=== PATIENT | male | born 1935 | race Caucasian/White ===

== ENCOUNTER 2017-10-31 20:00 | Inpatient (IN) | payer OTHER, SELFPAY ==
[2017-10-31 19:59] VITALS: BP 153/82; PULSE 90; RESP 16; TEMP 37.1; O2SAT 95
--- NOTE | 2017-10-31 20:09 | DI.CT.S_ITS ---
PROCEDURE: CT HEAD/BRAIN WO CON INDICATIONS: fall w/ head strike TECHNIQUE: Noncontrast 4.5 mm thick angled axial sections acquired from the foramen magnum to the vertex, with coronal and sagittal reformats. For radiation dose reduction, the following was used: automated exposure control, adjustment of mA and/or kV according to patient size. COMPARISON: [facility], , BRAIN WITHOUT CONTRAST, 08/06/2015, 10:35. FINDINGS: Image quality: Excellent. CSF spaces: Basal cisterns are patent. No extra-axial fluid collections. The ventricles are prominent in size, as before. Brain: No intracranial bleeds or masses. There is cerebral volume loss for age, with resultant ventricular and sulcal prominence. There are periventricular and deep white matter chronic small vessel ischemic changes. There is intracranial internal carotid artery atherosclerosis. Skull and face: Calvarium and visualized facial bones appear intact, without suspicious lesions. Sinuses: Visualized sinuses and mastoids are clear. IMPRESSION: No acute intracranial abnormality. Dictated by: Nidia Cruz M.D. on 10/31/2017 at 20:41 Approved by: Nidia Cruz M.D. on 10/31/2017 at 20:42
--- NOTE | 2017-10-31 20:09 | DI.RAD.S_ITS ---
PROCEDURE: XR HIP W PEL IF DONE LT 2V INDICATIONS: s/p fall w/ left hip pain, now non-ambulatory TECHNIQUE: AP pelvis with lateral view(s) of the left hip(s). COMPARISON: None. FINDINGS: Bones: Moderately displaced left subcapital femoral neck fracture. ORIF of the right hip. Pelvic ring appears intact. No suspicious bony lesions. Soft tissues: The visualized bowel gas pattern is normal. No suspicious soft tissue calcifications. IMPRESSION: Left subcapital femoral neck fracture. Dictated by: Nidia Cruz M.D. on 10/31/2017 at 20:39 Approved by: Nidia Cruz M.D. on 10/31/2017 at 20:40
--- NOTE | 2017-10-31 20:09 | DI.RAD.S_ITS ---
PROCEDURE: XR CHEST 1V INDICATIONS: fall, possible pre-op TECHNIQUE: One view of the chest was acquired. COMPARISON: [facility], CR, XR CHEST 2V, 09/13/2017, 11:53. FINDINGS: Surgical changes and devices: None. Lungs and pleura: No pleural effusions or pneumothorax. Lungs are clear. Mediastinum: Mediastinal contours appear normal. Heart size is normal. Bones and chest wall: No suspicious bony lesions. Overlying soft tissues appear unremarkable. IMPRESSION: No acute process. Dictated by: Nidia Cruz M.D. on 10/31/2017 at 20:38 Approved by: Nidia Cruz M.D. on 10/31/2017 at 20:39
[2017-10-31] MEDS: HYDROMORPHONE 0.5 MG INJ 1 MG IV ×3 (20:40→23:13)
--- NOTE | 2017-10-31 20:55 | ED.LOWEXIN ---
HPI - Extremity Injury (Lower) General Chief Complaint: Extremity Injury, Lower Stated Complaint: GLF Time Seen by Provider: 10/31/17 20:01 History of Present Illness HPI Narrative: HPI 82-year-old male with a prior right hip/femur fracture presents after mechanical fall from standing height for evaluation of left hip pain. Patient was at balance class as part of his rehab from prior injuries and to improve his balance. The patient was getting up from a chair when he fell onto his left hip, patient reports he struck his head without LOC but he saw stars, patient denies taking blood thinners. Patient was unable to stand was transferred by [facility] for further care. Patient declined pain medications at the present time as he received medications in route. Patient denies preceding chest pain, shortness breath, abdominal pain. No history of DVT or PE. M/S/F/SocHx notable for: denies pertinent medical history, medications notable for Aricept, fluoxetine, and tamsulosin; remainder reviewed with patient and in chart. ROS: Negative constitutional, eye, cardiovascular, pulmonary, GI, , MSK, skin, neurologic, psychiatric, endocrine unless noted in the HPI. Exam General: Pleasant, non-toxic appearing, resting comfortably. HENT: No evidence of facial or head trauma, TTP of orbits, TTP of midface, malocclusion, or septal hematoma. OP clear and moist, dentition intact. Eyes: EOMI, PERRL. Neck: Tracheal midline. No visible skin defects, no step-offs, c-spine TTP, stridor, or JVD. Cardiac: RRR with no M/R/G. Chest: No crepitus, visual evidence of trauma, equal chest rise, TTP. Pulm: CTAB effort WNL w/o accessory muscle usage. Abd: Soft, NT, ND, no guarding or visual evidence of trauma. Back: No spinous process TTP, no step-offs or visible injury. Pelvis: Stable, left hip tenors palpation. RUE: [employer] Operations [employer] 5/5, hand warm and well perfused with sensation intact to touch, mildly tender 2 cm area of swelling on the proximal, ulnar aspect of the forearm, no surrounding bony tenderness to palpation. LUE: [employer] 5/5, hand warm and well perfused with sensation intact to touch, no visible injuries. RLE: Dorsiflexion 5/5, foot warm and well perfused with sensation intact to touch, no visible injuries. LLE: Dorsiflexion 5/5, foot warm and well perfused with sensation intact to touch, shortened and externally rotated. Gait: unable to assess Neuro: AOx3, CN VII intact Skin: Warm and dry (focal injuries noted above). Psych: Normal affect and judgement. Labs / Imaging (pertinent): CBC, BMP, troponin pending. EK BPM, NSR with no ST-segment elevations or depressions, T-wave inversions or new LBBB. GA interval 142 msec, QTc 359 msec, no delta waves, epsilon waves, coved or saddle ST-segment changes in leads V1-3, preseptal or inferior lead Q-waves, biphasic P-waves, or T-wave inversions; no LVH. XR L hip & pelvis: left sub capital femoral neck fracture. CXR: no acute cardiopulmonary abnormality. CT head: no acute intracranial abnormality. MDM Previous chart, nursing note, and vitals reviewed. A: 82-year-old male with a prior right hip/femur fracture presents after mechanical fall from standing height for evaluation of left hip pain DDx and evaluation: Trauma - left hip fracture. No further clinically significant injuries appreciated on history, exam, or imaging. Discussed case with orthopedic surgery. Patient to be admitted to medicine. Fall Etiology: mechanical based on history. CBC, BMP, troponin pending at time of admission. EKG without evidence of ischemia or conduction abnormalities. ED Course: hydromorphone given for pain control. Disposition: admitted to the hospitalist. Impression: fall, left hip fracture. (please reference below for remainder of encounter information) Related Data Home Medications Medication Instructions Recorded Confirmed aspirin [Aspirin Low Dose] 81 mg PO QDAY 09/13/17 09/13/17 aspirin, buffered 650 mg PO BID PRN 05/02/18 05/02/18 benzonatate 100 mg PO Q4H PRN 09/13/17 09/13/17 donepezil [Aricept] 10 mg PO BEDTIME 09/13/17 09/13/17 fluoxetine [Prozac] 10 mg PO DAILY 09/13/17 09/13/17 meclizine 25 mg PO QDAY 09/13/17 09/13/17 omeprazole 10 mg PO DAILY 09/13/17 09/13/17 tamsulosin [Flomax] 0.4 mg PO DAILY 09/13/17 09/13/17 Previous Rx's Medication Instructions Recorded albuterol sulfate 1 puff INHALATION Q4-6H PRN #6.7 09/13/17 gram Allergies Allergy/AdvReac Type Severity Reaction Status Date / Time No Known Drug Allergies Allergy Verified 09/13/17 12:28 [facility] Social History Smoking Status: Never smoker Exam Initial Vital Signs Initial Vital Signs: Vital Signs Temperature 98.7 F 10/31/17 19:59 Pulse Rate 90 10/31/17 19:59 Respiratory Rate 16 10/31/17 19:59 Blood Pressure 153/82 H 10/31/17 19:59 Pulse Oximetry 95 10/31/17 19:59 Course Orders Ordered: ED Orders 10/31/17 20:09 CT head/brain wo con Stat XR chest 1V Stat XR hip w pel if done LT 2V Stat Basic Metabolic Panel Stat Complete Blood Count AUTO DIFF Stat Troponin I Stat EKG-12 Lead Stat Discontinued Medications Hydromorphone HCl (Dilaudid) 1 mg IV NOW ONE Stop: 10/31/17 20:35 Last Admin: 10/31/17 20:40 Dose: 1 mg Vital Signs - 8 hr 10/31/17 19:59 Temperature 98.7 F Pulse Rate 90 Respiratory Rate 16 Blood Pressure 153/82 H Pulse Oximetry 95 Discharge Plan Departure Patient Disposition: Admitted As Inpatient Clinical Impression: Closed hip fracture
[2017-10-31 21:09] VITALS: PULSE 105; RESP 12; O2SAT 93
[2017-10-31 21:22] VITALS: BP 157/63; PULSE 101; RESP 18; O2SAT 93
--- NOTE | 2017-10-31 21:34 | PC.NURSE ---
provider unable to order the right concentration of hydromorphone. unable to scan in [employer] 1mg/1ml concentration on hand in ER med drawer at this time. provider aware. no new orders.
[2017-10-31] MEDS: diazePAM 10 MG/2 ML SYRINGE 2 MG IV (22:40)
--- NOTE | 2017-10-31 22:42 | PC.NURSE ---
diazepam 5mg/ml vial only available in ER. Unable to scan medication due to incorrect concentration available in ER at this time. Provider aware.
[2017-10-31] MEDS: ONDANSETRON 4 MG/2 ML INJ IV (22:43)
[2017-10-31 22:44] VITALS: PULSE 111; RESP 16; O2SAT 95
--- NOTE | 2017-10-31 22:46 | PC.NURSE ---
pt given valium due to being uncomfortable pts O2 sat dropped to 86% after med administration. pt placed on 4L NC 02 sat 95% after o2 administration. pt hr elevated provider aware. pt okay to be moved up stairs to room per provider. explained pts situation to spouse. spouse verbalized understanding of pts care at this time. no new orders .
[2017-10-31 22:48] VITALS: O2SAT 95
[2017-10-31 23:00] VITALS: BP 169/75; PULSE 119; RESP 18; TEMP 37.3; O2SAT 97
[2017-11-01] VITALS (18 sets, daily range): BP systolic 121–159; BP diastolic 58–86; PULSE 74–118; RESP 13–20; TEMP 36.2–38.8; O2SAT 93–98; BMI 27.9
[2017-11-01] MEDS: ONDANSETRON 4 MG/2 ML INJ IV ×2 (00:44→05:15)
[2017-11-01] MEDS: HYDROMORPHONE 0.5 MG INJ IV (03:21)
--- NOTE | 2017-11-01 04:04 | PC.NURSE ---
Addendum entered by Kenya Rivas R.N. 11/01/17 06:22: 0400- pt complains of pain. dr mccallum orders received. 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 given zofran instead at compazine was not yet available . at bedside. pt attempted to roll to remove sheets from ED however opt yelled out in pain, swore and sated he couldn't do it. he then stated that he did not want the activities specialist to be in his room as he didn't like him and he was too rough. hammerer notified. coordinator notified. Pt given pain medication early (OK'd by MD per telephone call/order). see MAR for complete administration of all pain medications. Pt complaining constantly. tried to reposition however pt unable to really move much. Pt uses trapeze to offload bottom for a few seconds at a time and does try to move hips a bit to offload when sitting back down but this also hurts him extraordinarily. stated that she thinks if he rolls then we can get the extra sheets out from underneath him, but this typewriter tester explained to her multiple times that we tried and he couldn't tolerate it. Pt then tells his to hush up and frequently asks aleida what are you doing, stop that etc. Pt still tachycardia at times. pt blood pressure better in the 120s systolic, pt states that closer to where he normally is. bed alarm not cayden s pt uses trapeze, at bedside will alert staff if needing assistance. will continue to monitor. Original Note: Admit note: pt arrived to floor around 2245 6-19. pt at bedside,. states she will be staying. 0015- pt assessed. pain medication given per JUL. zofran given. pt had 5 episodes of vomiting after Dilaudid administration. md order to place pt NPO for surgery in AM. pt and spouse (Lizy) updated and briefed on plan of care and surgery in am, asking when it will be and discussed OR scheduling with them. Pt tolerating NPO ok, mouthwash at bedside and pt spitting into cup. Pt states zofran helps but still throwing up. pt uses trapeze bar and this helps him reposition himself. Pt has multiple blankets underneath him but refuses to let us removes them as he states the pain is too severe. even after pain medical diagnostic radiographer. pt refuses to let us remove the blankets. educated on why it is important and pt still refuses. Pt has pillow on left side, and ice pack. minimal orders in for pt. paged twice, finally RN coordinator paged and got zofran order for pt but no other orders received at this time. aleida given blankets. aleida and completed admission. Pt seems aggressive with but is pleasant with staff. will continue to monitor pt for safety. pt unable to get up. Pt bed alarm off. side rails up x3. pt bed alarm off as pt uses trapeze bar and alarm will sound even though pt is not getting up,. when pt is asleep, bed alarm is on and operational. belongings and call light within each. will continue to monitor pt for safety. at bedside, pt is responsible and will not get up without staff.
[2017-11-01] MEDS: HYDROMORPHONE 0.5 MG INJ 1 MG IV (05:08)
[2017-11-01] MEDS: SODIUM CHLORIDE 0.9% FLUSH 10 ML IV ×2 (05:08→13:05)
[2017-11-01] MEDS: PROCHLORPERAZINE 10 MG/2 ML VIAL IV (05:53)
--- NOTE | 2017-11-01 10:18 | P.HP_ITS ---
History of Present Illness Date Patient Seen: 11/01/17 Time Patient Seen: 10:15 Chief complaint: GLF Narrative: 82-year-old male who fell yesterday evening while attending a balance class fractured his hip. He was a resident of [place] he was sent over here for evaluation found to have the fractured hip. He has been fairly [place] has been relatively healthy in the past she does note that he has chronic balance problems due to previously fractured femur. Patient History Medical History Hypertension (Acute) Right femoral fracture (Acute) Family & Social History Social History: household members spouse Prior Living Arrangements House Safety & Behavioral: Feels Safe in Current Yes Environment Been Physically Hurt or No Threatened By a Person Suicidal Ideation Description None Tobacco & Substance use: Smoking Status Never smoker alcohol intake frequency 0-2 drinks per day Substance Use Type does not use Meds Home Medications Medication Instructions Recorded Confirmed Type albuterol sulfate 1 puff INHALATION Q4-6H PRN #6.7 09/13/17 10/31/17 Rx gram aspirin [Aspirin Low Dose] 81 mg PO QDAY 09/13/17 10/31/17 History aspirin, buffered 650 mg PO BID PRN 09/13/17 10/31/17 History benzonatate 100 mg PO Q4H PRN 09/13/17 10/31/17 History donepezil [Aricept] 10 mg PO BEDTIME 09/13/17 10/31/17 History fluoxetine [Prozac] 10 mg PO DAILY 09/13/17 10/31/17 History meclizine 25 mg PO QDAY 09/13/17 10/31/17 History omeprazole 10 mg PO DAILY 09/13/17 10/31/17 History tamsulosin [Flomax] 0.4 mg PO DAILY 09/13/17 10/31/17 History Allergies Allergy/AdvReac Type Severity Reaction Status Date / Time No Known Drug Allergies Allergy Verified 09/13/17 12:28 Review of Systems Review of Systems All systems reviewed & are unremarkable except as noted in HPI and below Exam Vital Signs (past 8 hours): Vital Signs - 8 hr 3 11/01/17 04:16 11/01/17 05:53 Temperature 99.5 F Pulse Rate 88 100 H Respiratory Rate 16 Blood Pressure 124/58 H 123/64 H Pulse Oximetry 96 Pulse Oximetry 96 Oxygen Delivery Method Nasal Cannula Oxygen Flow Rate 2 Narrative Exam Narrative: Pleasant elderly male awake alert actively hiccuping intractably. Oropharynx clear HEENT exam otherwise unremarkable Neck is supple no JVD no bruit noted Lungs are clear Heart regular rhythm Abdomen soft nontender bowel sounds present Skin warm and dry Neuro exam awake alert oriented no focal deficits Lower extremities no edema Assessment & Plan Plan: Assessment/Plan Narrative: One. Left subcapital femoral neck fracture. Patient will be consulted by Orthopedics and undergo surgical repair. Postoperative anticoagulation as per orthopedic protocol 2. Intractable hiccups he has had bed having hiccups now for over 12 hr. Plan to try him on some IV Reglan. 3. History of asthma he uses the albuterol very infrequently. 4. Code status patient desires to be full code Quality VTE Deep Vein Thrombosis/Pulmonary Embolism Present on Admission: No
[2017-11-01] MEDS: DEXTROSE 5%-0.45NS W/KCL 10MEQ 1,000 ML 100 MEQ IV (13:05)
--- NOTE | 2017-11-01 14:41 | CM.DANOTE ---
DCP: assessment: case received, EMR reviewed. SUGEY Pennington/ronel planning met with pt and his spouse. Introduced herself and role. Pt is an 82 year old male who lives on [address] [facility] with his spouse. Admitted late yesterday evening to care of hospitalist team. Surgeon: consulted. Dr. Calix will take pt to surgery this evening to repair fractured hip, sustained yesterday after a fall. Payer: [facility]. RONEL technical planner SUGEY Pennington agreed to check in with pt and his tomorrow to discuss d/c issues and options. Anticipate OT and PT will see pt post op. If pt does need SNF level rehab after d/c from [facility] authorization will need to be obtained and a [place] facility located. SNFs in [facility] are limited to [facility] and [facility]. P: follow up post surgery to continue the d/c issues/options discussion.
[2017-11-01] MEDS: MORPHINE 4 MG/ML INJ 2 MG IV (14:43)
--- NOTE | 2017-11-01 15:27 | PC.NURSE ---
day shift pt stated pain was controlled for majority of shift. Did request pain meds this afternoon which were provided. No emesis after morphine admin as seemed to be happening after dilaudid this AM. No nausea for me this shift. did have breakfast as was allowed by Dr Calix (last PO intake around 0915 this AM). Tolerated that without issue. Low grade temp this shift, 100.[address] Partida, no intervention necessary. Pt c/o pain with PIV that was field start in RFA. Removed and new PIV inserted in RFA. Hourly rounding provided, call light wihtin reach.
--- NOTE | 2017-11-01 16:45 | PC.NURSE ---
Sulema note: Patient awake and alert, CMS to LLE intact, reports pain to left hip described as an ache, declines pain medication at the moment. No c/o nausea. at bedside providing supportive care. asking appropriate questions. OR Holding nurse Ivna at bedside, patient to be taken to OR in stable condition.
[2017-11-01] MEDS: LACTATED RINGERS 1,000 ML 42 ML IV (17:00)
[2017-11-01] MEDS: FAMOTIDINE 20 MG/50 ML PIGGYBACK 200 MG IV (17:04)
[2017-11-01] MEDS: METOCLOPRAMIDE 10 MG/2 ML INJ IV (17:05)
[2017-11-01] MEDS: CEFAZOLIN 2 GM/100 ML FROZ.PIGGY IV (17:23)
--- NOTE | 2017-11-01 17:29 | PM.PREOP ---
Pre-operative Note Interval Note Pre-op Check: History & Physical exam performed today
--- NOTE | 2017-11-01 18:06 | SUR.OPER ---
Lateral on padded OR bed, head on pillow, gel axillary roll in place, bottom leg bent with gel pad under knee to foot, upper leg straight and supported with pillows. virk bag used to support patient's hips and abdomen. Upper arm supported by pillows and secured over bottom arm to padded arm board. tape over blanket over lower legs.
[2017-11-01] MEDS: BUPIVACAINE 0.25% W/ EPI 50 ML VIAL INJ (18:14)
[2017-11-01] MEDS: SODIUM CHLORIDE IRRIG SOLUTION 250 ML, EPINEPHrine 1 MG IRR (18:15)
--- NOTE | 2017-11-01 19:18 | PM.HP.1 ---
History of Present Illness Date Patient Seen: 11/01/17 Time Patient Seen: 17:15 Chief complaint: GLF Narrative: The patient is an 82-year-old man who fell yesterday during balance class. He had immediate pain in his left hip and inability to bear weight. X-rays at the emergency room revealed a displaced femoral neck fracture. He denies previous problems with the leg. He does have a history of a right proximal femoral fracture. He denies any loss of conscious or other injuries during the fall. He has had a lot of difficulties with his balance recently. Patient History Medical History Hypertension (Acute) Right femoral fracture (Acute) Family & Social History Family History: Reviewed 11/01/17 by Shade Calix MD Social History: household members spouse Prior Living Arrangements House Safety & Behavioral: Feels Safe in Current Yes Environment Been Physically Hurt or No Threatened By a Person Suicidal Ideation Description None Tobacco & Substance use: Smoking Status Never smoker alcohol intake frequency 0-2 drinks per day Substance Use Type does not use Meds Home Medications Medication Instructions Recorded Confirmed Type albuterol sulfate 1 puff INHALATION Q4-6H PRN #6.7 09/13/17 10/31/17 Rx gram aspirin [Aspirin Low Dose] 81 mg PO QDAY 09/13/17 10/31/17 History aspirin, buffered 650 mg PO BID PRN 09/13/17 10/31/17 History benzonatate 100 mg PO Q4H PRN 09/13/17 10/31/17 History donepezil [Aricept] 10 mg PO BEDTIME 09/13/17 10/31/17 History fluoxetine [Prozac] 10 mg PO DAILY 09/13/17 10/31/17 History meclizine 25 mg PO QDAY 09/13/17 10/31/17 History omeprazole 10 mg PO DAILY 09/13/17 10/31/17 History tamsulosin [Flomax] 0.4 mg PO DAILY 09/13/17 10/31/17 History Allergies Allergy/AdvReac Type Severity Reaction Status Date / Time No Known Drug Allergies Allergy Verified 09/13/17 12:28 Review of Systems Review of Systems All systems reviewed & are unremarkable except as noted in HPI and below Exam Vital Signs (past 8 hours): Vital Signs - 8 hr 11/01/17 16:11 11/01/17 16:43 11/01/17 16:52 Temperature 99.0 F 101.8 F H Pulse Rate 86 81 Respiratory Rate 18 20 Blood Pressure 144/80 H 145/66 H Pulse Oximetry 95 96 95 Pulse Oximetry 95 Oxygen Delivery Method Nasal Cannula Oxygen Flow Rate 2 Narrative Exam Narrative: Patient is alert and fully oriented. He does appear to be relatively comfortable in bed. HEENT is unremarkable. Lungs clear. Heart regular rate and rhythm. Abdomen soft nontender. Extremities show shortening or rotation of the left hip. Range of motion of the left hip is very painful. The lower extremities are warm and appear adequately perfused. Strength and sensation is grossly intact. Objective Imaging Hip x-ray: My impression: Displaced femoral neck fracture Assessment & Plan Plan: Assessment/Plan Narrative: The patient has displaced left femoral neck fracture from a ground level fall. I discussed the nature of this condition further treatment options with the patient and his . I have recommended a cemented hemiarthroplasty. We discussed the nature of that surgery including the risks, benefits, alternatives, postoperative course and expected outcome. Informed consent was taken. Operative site confirmed and marked. Time Spent With Patient Time with patient: less than 15 minutes Quality VTE Deep Vein Thrombosis/Pulmonary Embolism Present on Admission: No
--- NOTE | 2017-11-01 19:22 | P.HP_ITS ---
History of Present Illness Date Patient Seen: 11/01/17 Time Patient Seen: 17:15 Chief complaint: GLF Narrative: The patient is an 82-year-old man who fell yesterday during balance class. He had immediate pain in his left hip and inability to bear weight. X- rays at the emergency room revealed a displaced femoral neck fracture. He denies previous problems with the leg. He does have a history of a right proximal femoral fracture. He denies any loss of conscious or other injuries during the fall. He has had a lot of difficulties with his balance recently. Patient History Medical History Hypertension (Acute) Right femoral fracture (Acute) Family & Social History Family History: Reviewed 11/01/17 by Shade Calix MD Social History: household members spouse Prior Living Arrangements House Safety & Behavioral: Feels Safe in Current Yes Environment Been Physically Hurt or No Threatened By a Person Suicidal Ideation Description None Tobacco & Substance use: Smoking Status Never smoker alcohol intake frequency 0-2 drinks per day Substance Use Type does not use Meds Home Medications Medication Instructions Recorded Confirmed Type albuterol sulfate 1 puff INHALATION Q4-6H PRN #6.7 09/13/17 10/31/17 Rx gram aspirin [Aspirin Low Dose] 81 mg PO QDAY 09/13/17 10/31/17 History aspirin, buffered 650 mg PO BID PRN 09/13/17 10/31/17 History benzonatate 100 mg PO Q4H PRN 09/13/17 10/31/17 History donepezil [Aricept] 10 mg PO BEDTIME 09/13/17 10/31/17 History fluoxetine [Prozac] 10 mg PO DAILY 09/13/17 10/31/17 History meclizine 25 mg PO QDAY 09/13/17 10/31/17 History omeprazole 10 mg PO DAILY 09/13/17 10/31/17 History tamsulosin [Flomax] 0.4 mg PO DAILY 09/13/17 10/31/17 History Allergies Allergy/AdvReac Type Severity Reaction Status Date / Time No Known Drug Allergies Allergy Verified 09/13/17 12:28 Review of Systems Review of Systems All systems reviewed & are unremarkable except as noted in HPI and below Exam Vital Signs (past 8 hours): Vital Signs - 8 hr 3 11/01/17 16:11 11/01/17 16:43 11/01/17 16:52 Temperature 99.0 F 101.8 F H Pulse Rate 86 81 Respiratory Rate 18 20 Blood Pressure 144/80 H 145/66 H Pulse Oximetry 95 96 95 Pulse Oximetry 95 Oxygen Delivery Method Nasal Cannula Oxygen Flow Rate 2 Narrative Exam Narrative: Patient is alert and fully oriented. He does appear to be relatively comfortable in bed. HEENT is unremarkable. Lungs clear. Heart regular rate and rhythm. Abdomen soft nontender. Extremities show shortening or rotation of the left hip. Range of motion of the left hip is very painful. The lower extremities are warm and appear adequately perfused. Strength and sensation is grossly intact. Objective Imaging Hip x-ray: My impression: Displaced femoral neck fracture Assessment & Plan Plan: Assessment/Plan Narrative: The patient has displaced left femoral neck fracture from a ground level fall. I discussed the nature of this condition further treatment options with the patient and his . I have recommended a cemented hemiarthroplasty. We discussed the nature of that surgery including the risks, benefits, alternatives , postoperative course and expected outcome. Informed consent was taken. Operative site confirmed and marked. Time Spent With Patient Time with patient: less than 15 minutes Quality VTE Deep Vein Thrombosis/Pulmonary Embolism Present on Admission: No
--- NOTE | 2017-11-01 19:22 | PM.OP.1 ---
Operative Date/Time/Diagnoses - Date of procedure: 11/01/17 Time of procedure: 19:22 Pre-op diagnosis: Displaced left femoral neck fracture Post-op diagnosis: same Procedure & Clinicians Procedure: Left hip hemiarthroplasty with unipolar head Same procedure as scheduled: Yes Indications: Patient is a 2-year-old man who fell yesterday and sustained a displaced femoral neck fracture. He now presents for hemiarthroplasty. The nature of procedure including the risks, benefits, alternatives, postoperative course and expected outcome were discussed and all questions answered. Consent was obtained. Operative site confirmed and marked. Surgeon: Shade Calix Security Software Engineer: Jesus Neely Anesthesia Type: General Operative Notes Findings: Displaced femoral neck fracture. Adequate bone quality. Closure Type: primary Specimen(s): none sent Implants & Drains: [employer]hew cemented hemiarthroplasty. Thirteen stem. A 50 mm +0 neck length. Applied: implant(s) Estimated Blood Loss (mL): 100 Blood products transfused: none Procedure in detail: The patient was taken operative suite and placed under general anesthesia. He was given prophylactic antibiotics prior to surgery. He was then placed in a lateral position on a virk bag. The leg was prepped and draped usual sterile fashion. A 15 cm incision was made just the anterior aspect of the greater trochanter. Dissection was then carried down through the subcutaneous tissue with electrocautery. The tensor fascia ana maria was split line with the incision and marked. The anterior 1/3 of the gluteus medius was then released from the greater trochanter leaving a cuff of tissue for repair. The anterior capsule was Teed. The femoral neck was then delivered from the wound in the provisional neck cut made. The femoral head was removed and measured at a size 50. Next the final neck cut was made which was about 1 fingerbreadth above the lesser tuberosity. Sequential broaching was then carried out per the proximal femur and the trials template. The 13 mm stem had good fit. There was good scientology of leg length and stability with a +0 neck length. The canal was then prepared for cement with Pulsavac irrigation and epinephrine soaked sponge. The final 13 mm component was then cemented into place. The component was held until the cement had fully cured. Reduction was then performed with a +0 neck length and 50 mm head. Again there was adequate scientology of leg length and soft tissues stability. Attempted to make the leg slightly longer is appear to have shortening of his contralateral leg from his previous fracture. the wound was then copiously irrigated. The capsule was closed with 2. Ethibond. The gluteus medius was repaired back to the trochanter with 2. Ethibond. Tensor fascia ana maria was then closed with a Quill suture. The subcutaneous tissue was closed with 2 Vicryl and the skin with damaris. An Aquacel dressing was then applied. The patient tolerated procedure well and was returned to recovery in good condition. Complications: none Condition: stable Disposition: PACU Plan for aftercare: The patient will be weight-bearing as tolerated with no hip precautions given his anterolateral approach. Plan discharge to alf facility.
--- NOTE | 2017-11-01 20:45 | DI.RAD.S_ITS ---
PROCEDURE: XR HIP W PEL IF DONE LT 2V INDICATIONS: post operative left hip replacement surgery TECHNIQUE: AP pelvis and lateral view of the left hip acquired. COMPARISON: [facility], CR, XR HIP W PEL IF DONE LT 2V, 10/31/2017, 19:48. FINDINGS: Bones: Patient is status post left hip arthroplasty, with hardware components in expected positions. The hip joint appears congruent. The visualized bony structures appear intact. Incidental note is made of postsurgical changes of the right femur related to previous mid to distal right femoral shaft ORIF. Upon trochanteric nail is secured in place by a sliding hip screw and an additional orthopedic screw. The bone mineralization of the pelvis is decreased. There are degenerative changes of the sacroiliac joints. Soft tissues: Overlying postoperative changes are noted. No suspicious soft tissue densities. Expected postoperative changes within the overlying soft tissues are present. The overlying skin damaris are noted. No radiopaque foreign bodies are identified. A Marshall catheter is noted. IMPRESSION: Interval expected postsurgical changes related to a left hip arthroplasty. Dictated by: Eljiah Jackson M.D. on 11/01/2017 at 21:28 Approved by: Elijah Jackson M.D. on 11/01/2017 at 21:29
--- NOTE | 2017-11-01 21:34 | PC.NURSE ---
Post op note: Patient return to AC from PACU with RN, Alert, oriented, in stable condition. Continue on O2 at 2L via NC, sats 94%. Notified RT regarding Eval and Tx. CMS intact to LLE, Aquacel to anterior lateral left hip, dressing with dime size shadowing to distal end of dressing. Ice pack to left hip, pillow in between legs for anterior hip precautions measures. CMS intact to LLE, warm, pink, 2+ pedal pulse, movable and sensation present. No c/o pain or nausea. XRY tech at bedside to perform post op view.
[2017-11-01] MEDS: LACTATED RINGERS 1,000 ML 100 ML IV (21:53)
[2017-11-02] VITALS (11 sets, daily range): BP systolic 126–151; BP diastolic 59–71; PULSE 63–99; RESP 16–18; TEMP 36.8–37.9; O2SAT 92–99
[2017-11-02] MEDS: CEFAZOLIN 2 GM/100 ML FROZ.PIGGY IV ×2 (00:04→09:44)
--- NOTE | 2017-11-02 05:06 | PC.NURSE ---
[employer] Station Attendant- Pt lethargic throughout shift, follows direction, did not use call light throughout night. Hourly rounding done. At beginning of shift, pt reported 2-3/10 aching to left hip surgical site, prn pain medication reviewed, pt has had only ice chips, states is not hungry. Pt's Maira at bedside stated, pt was nauseated and vomiting after receiving doses prior to surgery. Dr. Calix called at 0055 and prn orders rec'd from Morphine & reglan. Left hip aquacel dressing intact with small amount of sang shadowing near distal end of dressing, area marked with pen. CMS+, PPP, Calf SCD's on BLE. IVF infusing well to rigth FA PIV. Pt weaned from 2L NC at 98% to 93% on RA at 0505, placed on continuous O2 monitoring for overnight. High fall risk precautions in place. No other voiced concerns.
[2017-11-02] MEDS: MORPHINE 2 MG/ML INJ IV (06:00)
[2017-11-02] MEDS: LACTATED RINGERS 1,000 ML 100 ML IV (06:05)
[2017-11-02 06:12] LABS: Hematocrit 35.4 % (41-53); Hemoglobin 11.9 g/dL (13.5-17.5)
[2017-11-02] MEDS: PANTOPRAZOLE 20 MG TABLET PO (06:39)
[2017-11-02] MEDS: FLUoxetine 10 MG CAPSULE PO (09:45)
[2017-11-02] MEDS: OXYCODONE IR 5 MG TABLET PO ×2 (09:48→21:40)
[2017-11-02] MEDS: ENOXAPARIN 40 MG/0.4 ML SYRINGE SUBCUT (09:50)
--- NOTE | 2017-11-02 10:33 | PT.IIE ---
Surgery Performed Operation Date: 11/01/17 16:30 Actual Procedures p Unipolar Cannulated(Left) - Shade Calix MD Medical History (Last Reviewed 11/01/17 @ 19:20 by Shade Calix MD) Hypertension (Acute) Right femoral fracture (Acute) Physical Therapy Inpatient Evaluation/Re-Eval M1 PT/OT-IP Prior Functional Status Start: 11/02/17 13:26 Freq: NEEDED Status: Active Protocol: Document 11/02/17 13:26 AB (Rec: 11/02/17 13:42 AB [id number]) Medical Review Prior Functional Status Medical History Reviewed Yes Mobility and Gait pt stated that he is modified independent with all mobilities and ambulation using SPC outdoors but uses a 4WW indoors. Social History Household Members spouse Living Arrangements House Number of Floors (Floors) 3 or More Floors Number of Stairs To Enter/Railing? has 3 steps to enter with R rail ascending; pt plans to stay on main level of the house Home Environment High Toilet Walk in Shower Home Equipment Shower Seat with Backrest Hand Held Shower Grab Bars Near Toilet Grab Bars In Shower Employment Status Retired Additional Social History Comment spouse stated that she cannot assist pt much physically M2 PT-IP Current Condition Start: 11/02/17 13:26 Freq: NEEDED Status: Active Protocol: Document 11/02/17 13:26 AB (Rec: 11/02/17 13:42 AB [id number]) Physical Therapy Current Condition Current Condition Evaluation Date 11/02/17 Treatment Diagnosis femoral neck fx s/p L hip hemiarthroplasty Onset Date 10/31/17 Precautions Other Precautions per Dr. Calix: Plan for aftercare: The patient will be weight-bearing as tolerated with no hip precautions given his anterolateral approach. Plan [facility]. Weight Bearing Status Weight Bearing Status Weight Bear as Tolerated M3 PT-IP Subjective Start: 11/02/17 13:26 Freq: NEEDED Status: Active Protocol: Document 11/02/17 13:26 AB (Rec: 11/02/17 13:42 AB [id number]) Subjective Physical Therapy Visit Type Type Initial Evaluation Visit Start Time 10:33 Visit Stop Time 11:29 Total Visit Minutes 56 Number of ASSOCIATE Visits 0 Physical Therapy Visit Comments Patient Comments pt agreeable to do therapy Therapy Pain Assessment Pain When Pain Assessed At Rest Pain Present Pain Present Pain Reported Location Left Hip Intensity 3 Scale Used Numeric (1 - 10) Pain Behaviors Guarding Pain Management Techniques Apply Cold M4 PT-IP Mobility and Gait Start: 11/02/17 13:26 Freq: NEEDED Status: Active Protocol: Document 11/02/17 13:26 AB (Rec: 11/02/17 13:42 AB [id number]) PT-Bed Mobility Assessment Supine to Sit Supine to Sit Maximum Assistance PT-Transfer Assessment Sit to and From Stand Sit to and from Stand Maximum Assistance 1 Person Assistance Equipment Transfer Assistive Device Gait Belt Front Wheeled Walker Orthotic/Prosthetic Devices or Brace: No Transfers Transfer Destination Chair Transfer Technique Stand Step Pivot Transfer Ability Level of Assist Maximum Assistance 1 Person Assistance Comments Mobility Comments pt requires max cues and increase time to complete all tasks. Gait Assessment Comments Gait Comments attempted ambulation but pt only took ~ 2 steps and stated he has to sit back down due to c/o pain and lightheadedness: BP: 129/67 PT-Balance Assessment Sitting Balance and Reactions Static Sitting Balance Ability Good Dynamic Sitting Balance Ability Fair Standing Balance and Reactions Static Standing Balance Ability Poor Dynamic Standing Balance Ability Poor M5 PT-IP Objective Assessments Start: 11/02/17 13:26 Freq: NEEDED Status: Active Protocol: Document 11/02/17 13:26 AB (Rec: 11/02/17 13:42 AB [id number]) Orientation Orientation/Cognition Level of Alertness Alert Orientation Name Age Birthday Year Place Situation Safety Awareness Decreased Safety Awareness Gross Range of Motion Lower Extremity ROM Assessment Right Impaired Strength Lower Extremity Strength Assessment Bilaterally Impaired Comments Strength Comments h/o R hip surgery and currently just had L hip hemiarthroplasty RLE 3-/5 LLE 4-/5 M6 PT-IP Treatment Start: 11/02/17 13:26 Freq: NEEDED Status: Active Protocol: Document 11/02/17 13:26 AB (Rec: 11/02/17 13:42 AB [id number]) Physical Therapy Treatment Education Education Provided Precautions Weight Bearing Status Post-Op Packet Safety M7 PT-IP Assessment and Plan Start: 11/02/17 13:26 Freq: NEEDED Status: Active Protocol: Document 11/02/17 13:26 AB (Rec: 11/02/17 13:42 AB [id number]) PT Summary Assessment and Plan Potential Rehabilitation Potential Fair Status of Condition at Evaluation Evolving Summary Impairments Pain ROM Strength Balance Coordination Sensation Cognition Bed Mobility Transfers Gait Activity Tolerance Assessment Summary pt requiring max A and max cues with all tasks. unable to ambulate today due to c/o pain and lightheadedness. pt with limited support available at home since spouse cannot assist pt much. pt also had previous hip surgery on R hip affecting mobility. pt also has 3 steps to enter the house and at this time is not appropriate to do stair training. pt will require SNF rehab to improve strength and mobility prior to d/c home. Goals Bed Mobility Goal Contact Guard Assistance Transfer Goal Contact Guard Assistance Gait Goal Contact Guard Assistance Gait Distance 100 Days to Meet Goals 3 Frequency of Treatment Frequency Of Treatment Twice a Day Treatment Plan Physical Therapy Treatment Plan Bed Mobility Training Transfer Training Gait Training Therapeutic Exercise Balance Retraining Post Op Education Discharge Planning Hot or Cold Pack Neuromuscular Re-ed Coordination Retraining Manual Therapy Other Recommendations and Next Treatment ambulation Focus Recommendations To Nursing Amount of Assist Needed 1 Person Assist Discharge Recommendations PT Discharge Recommendations SNF Rehab Provider Visit Care Team Role Provider Type Luis Daniel Varghese MD Family Provider Physician Primary Care Provider Specialty: Family Practice Abimael Riley MD Emergency Provider Physician Specialty: Emergency Medicine Naomi Weeks MD Admit Provider Physician Attending Provider Specialty: Internal Medicine
--- NOTE | 2017-11-02 14:04 | PM.PN.1 ---
Subjective Date Patient Seen: 11/02/17 Time Patient Seen: 13:50 Interval history: Patient still has some pain in the right hip after surgery. Denies other discomfort. Exam Vital Signs (past 8 hours): Vital Signs - 8 hr 11/02/17 06:44 11/02/17 08:00 11/02/17 08:05 Temperature 98.2 F 98.2 F Pulse Rate 73 76 Respiratory Rate 16 16 Blood Pressure 138/69 H 128/59 H Pulse Oximetry 95 96 96 Pulse Oximetry 96 Oxygen Delivery Method Room Air Oxygen Flow Rate 0 Narrative Exam Narrative: General: Elderly man in no acute distress Lungs: Clear to auscultation bilaterally Heart: Regular rhythm, no murmur appreciated Abdomen: Soft, nontender Extremities: No pitting edema Objective Labs Result Diagrams: 11/02/17 05:46 Labs: Laboratory Results - last 24 hr 11/02/17 05:46 Hgb 11.9 L Hct 35.4 L Assessment & Plan Plan: Assessment/Plan Narrative: 1. Left subcapital femoral neck fracture. Status post left hemiarthroplasty with unipolar. Followed by Orthopedics 2. Intractable hiccups he has had bed having hiccups now for over 12 hr. Resolved 3. History of asthma he uses the albuterol very infrequently. 4. Code status patient desires to be full code 5. DVT prophylaxis: He is on prophylactic dose of Lovenox and baby aspirin 6. Disposition: Continue PT OT. Likely require group home facility placement at discharge. Quality VTE Deep Vein Thrombosis/Pulmonary Embolism Present on Admission: No
--- NOTE | 2017-11-02 14:09 | P.PN_ITS ---
Subjective Date Patient Seen: 11/02/17 Time Patient Seen: 13:50 Interval history: Patient still has some pain in the right hip after surgery. Denies other discomfort. Exam Vital Signs (past 8 hours): Vital Signs - 8 hr 3 11/02/17 06:44 11/02/17 08:00 11/02/17 08:05 Temperature 98.2 F 98.2 F Pulse Rate 73 76 Respiratory Rate 16 16 Blood Pressure 138/69 H 128/59 H Pulse Oximetry 95 96 96 Pulse Oximetry 96 Oxygen Delivery Method Room Air Oxygen Flow Rate 0 Narrative Exam Narrative: General: Elderly man in no acute distress Lungs: Clear to auscultation bilaterally Heart: Regular rhythm, no murmur appreciated Abdomen: Soft, nontender Extremities: No pitting edema Objective Labs Result Diagrams: 11/02/17 05:46 Labs: Laboratory Results - last 24 hr 11/02/17 05:46 Hgb 11.9 L Hct 35.4 L Assessment & Plan Plan: Assessment/Plan Narrative: 1. Left subcapital femoral neck fracture. Status post left hemiarthroplasty with unipolar. Followed by Orthopedics 2. Intractable hiccups he has had bed having hiccups now for over 12 hr. Resolved 3. History of asthma he uses the albuterol very infrequently. 4. Code status patient desires to be full code 5. DVT prophylaxis: He is on prophylactic dose of Lovenox and baby aspirin 6. Disposition: Continue PT OT. Likely require alf facility placement at discharge. Quality VTE Deep Vein Thrombosis/Pulmonary Embolism Present on Admission: No
--- NOTE | 2017-11-02 15:05 | PT.IPTN ---
Current Diagnoses Unspecified intracapsular fracture of left femur, initial encounter for closed fracture (10/31/17) Surgery Performed Operation Date: 11/01/17 16:30 Actual Procedures p Unipolar Cannulated(Left) - Shade Calix MD Physical Therapy Treatment Note M2 PT-IP Current Condition Start: 11/02/17 13:26 Freq: NEEDED Status: Active Protocol: Document 11/02/17 13:26 AB (Rec: 11/02/17 13:42 AB [id number]) Physical Therapy Current Condition Current Condition Evaluation Date 11/02/17 Treatment Diagnosis femoral neck fx s/p L hip hemiarthroplasty Onset Date 10/31/17 Precautions Other Precautions per Dr. Calix: Plan for aftercare: The patient will be weight-bearing as tolerated with no hip precautions given his anterolateral approach. Plan discharge to retirement facility. Weight Bearing Status Weight Bearing Status Weight Bear as Tolerated M3 PT-IP Subjective Start: 11/02/17 13:26 Freq: NEEDED Status: Active Protocol: Document 11/02/17 15:05 GGD (Rec: 11/02/17 16:29 GGD [id number]) Subjective Physical Therapy Visit Type Type Treatment Note Visit Start Time 14:40 Visit Stop Time 15:05 Total Visit Minutes 25 Number of SWEET GOODS MACHINE OPERATOR Visits 1 Physical Therapy Visit Comments Patient Comments Pt ready to go back to bed. Therapy Pain Assessment Pain When Pain Assessed At Rest Pain Present Pain Present Pain Reported M4 PT-IP Mobility and Gait Start: 11/02/17 13:26 Freq: NEEDED Status: Active Protocol: Document 11/02/17 15:05 GGD (Rec: 11/02/17 16:29 GGD [id number]) PT-Bed Mobility Assessment Sit to Supine Sit to Supine Moderate Assistance 1 Person Assistance PT-Transfer Assessment Sit to and From Stand Sit to and from Stand Minimal Assistance 1 Person Assistance Use of Upper Extremities Equipment Transfer Assistive Device Gait Belt Front Wheeled Walker Transfers Transfer Destination Bed Transfer Technique Stand Step Pivot Transfer Ability Level of Assist Moderate Assistance 1 Person Assistance Use of Upper Extremities Comments Mobility Comments pt need cues. M6 PT-IP Treatment Start: 11/02/17 13:26 Freq: NEEDED Status: Active Protocol: Document 11/02/17 15:05 GGD (Rec: 11/02/17 16:29 GGD [id number]) Physical Therapy Treatment Exercises Exercises Ankle Pumps Gluteal Sets Quad Sets Heel Slides Education Education Provided Safety M7 PT-IP Assessment and Plan Start: 11/02/17 13:26 Freq: NEEDED Status: Active Protocol: Document 11/02/17 15:05 GGD (Rec: 11/02/17 16:29 GGD [id number]) PT Summary Assessment and Plan Summary Assessment Summary Pt needs increase time and cues with mobility. He is slow moving. He needed decrease assist with sit to stand. He was able to take small transfer steps. He is a mod a for bed mobility. Frequency of Treatment Frequency Of Treatment Twice a Day Treatment Plan Other Recommendations and Next Treatment ambulation, bed mobility, Focus transfers. Recommendations To Nursing Amount of Assist Needed 2 Person Assist Discharge Recommendations PT Discharge Recommendations SNF Rehab
--- NOTE | 2017-11-02 15:17 | CM.DPC ---
Discharge Assessment/Cont: Patient seen today, post surgery. Alert and oriented, with patient. Patient denied pain, but was resting in bed. Patient is weight bearing as tolerated, but max assist with therapy, and in pain. Spoke to , resources given for [facility] placement, as is recommendations that patient go to [facility] after discharge. Will need to follow up with [place] [facility] authorization upon discharge. Follow up with [place] disease case manager rn at [facility] for post-authorization. Aditi Acosta RN. Discharge Planning/Care Management CM Discharge Assessment Start: 11/01/17 14:34 Freq: Status: Active Protocol: Document 11/01/17 14:35 ITV (Rec: 11/01/17 14:40 ITV [id number]) Discharge Planning Assessment History Provided By Patient Significant Other Medical Record Has Patient been admitted in last 30 No days? Is this patient on Medicare? No Prior Living Arrangements House Household Members spouse Independent with ADL's Yes Is patient alert and oriented? Yes Caregiver for Another No Comment Patient was attending a therapy balance class when he fell, resulting in current hip fracture Comment Unknown until after surgery/ scheduled for this evening Review Status In Process Next Review Type Continued Stay Review Document 11/01/17 14:40 ITV (Rec: 11/01/17 14:53 ITV [id number]) Discharge Planning Assessment History Provided By Patient Significant Other Medical Record Has Patient been admitted in last 30 No days? Is this patient on Medicare? No Prior Living Arrangements House Household Members spouse Independent with ADL's Yes Is patient alert and oriented? Yes Caregiver for Another No Comment Patient was attending a therapy balance class when he fell, resulting in current hip fracture Comment Unknown until after surgery/ scheduled for this evening Review Status In Process Next Review Type Continued Stay Review Document 11/01/17 14:40 ITV (Rec: 11/01/17 14:53 ITV [id number]) Discharge Planning Assessment History Provided By Patient Significant Other Medical Record Has Patient been admitted in last 30 No days? Is this patient on Medicare? No Prior Living Arrangements House Household Members spouse Independent with ADL's Yes Is patient alert and oriented? Yes Caregiver for Another No Comment Patient was attending a therapy balance class when he fell, resulting in current hip fracture Comment Unknown until after surgery/ scheduled for this evening Review Status In Process Next Review Type Continued Stay Review 11/01/17 14:41 CM Disch. Assessment Note by Villiott,Elizabeth T DCP: assessment: case received, EMR reviewed. SUGEY Pennington/ronel planning met with pt and his spouse. Introduced herself and role. Pt is an 82 year old male who lives on [address] with his spouse. Admitted late yesterday evening to care of hospitalist team. Surgeon: consulted. Dr. Calix will take pt to surgery this evening to repair fractured hip, sustained yesterday after a fall. Payer: [facility]. RONEL farm planner SUGEY Pennington agreed to check in with pt and his tomorrow to discuss d/c issues and options. Anticipate OT and PT will see pt post op. If pt does need SNF level rehab after d/c from [facility] authorization will need to be obtained and a [place] facility located. SNFs in [facility] are limited to [facility] and [facility]. P: follow up post surgery to continue the d/c issues/options discussion. Initialized on 11/01/17 14:41 - END OF NOTE
--- NOTE | 2017-11-02 16:11 | OT.IP.EVAL ---
Current Diagnoses Unspecified intracapsular fracture of left femur, initial encounter for closed fracture (10/31/17) Surgery Performed Operation Date: 11/01/17 16:30 Actual Procedures p Unipolar Cannulated(Left) - Shade Calix MD Past Medical History (Last Reviewed 11/01/17 @ 19:20 by Shade Calix MD) Hypertension (Acute) Right femoral fracture (Acute) Occupational Therapy Inpatient Evaluation/Re-Eval M1 PT/OT-IP Prior Functional Status Start: 11/02/17 13:26 Freq: NEEDED Status: Active Protocol: Document 11/02/17 16:11 PJM (Rec: 11/02/17 16:32 PJM [id number]) Medical Review Prior Functional Status Medical History Reviewed Yes Communication WNL Mobility and Gait pt stated that he is modified independent with all mobilities and ambulation using SPC outdoors but uses a 4WW indoors. Activities of Daily Living and IADL's Pt was indep with all self care, used long shoe horn daily and also has generation mechanic helper and sock aid from previous RLE fx 's x2. Prior Functional Level (Other details) Pt drove. does most IADLS and also drives. She states she cannot provide much physical assist. Pt usually helps her tie one shoe. Social History Household Members spouse Living Arrangements House Number of Floors (Floors) 3 or More Floors Number of Stairs To Enter/Railing? has 3 steps to enter with R rail ascending; pt plans to stay on main level of the house Home Environment High Toilet Walk in Shower Home Equipment Shower Seat with Backrest Hand Held Shower Grab Bars Near Toilet Grab Bars In Shower Employment Status Retired Additional Social History Comment spouse stated that she cannot assist pt much physically M2 OT-IP Current Condition Start: 11/02/17 16:15 Freq: Status: Active Protocol: Document 11/02/17 16:11 PJM (Rec: 11/02/17 16:32 PJM [id number]) Occupational Therapy Current Condition Current Condition Evaluation Date 11/02/17 Treatment Diagnosis decreased self care, functional mobility s/p L hip fx from GLF Post Operative Precautions Other Precautions per Dr. Calix: Plan for aftercare: The patient will be weight-bearing as tolerated with no hip precautions given his anterolateral approach. Plan discharge to residential facility. Weight Bearing Status Weight Bearing Status Weight Bear as Tolerated M3 OT- IP Subjective and Pain Start: 11/02/17 16:15 Freq: Status: Active Protocol: Document 11/02/17 16:11 PJM (Rec: 11/02/17 16:32 PJ [id number]) OT- Subjective Occupational Therapy Visit Type Type Initial Evaluation Visit Start Time 15:32 Visit Stop Time 16:11 Total Visit Minutes 39 Occupational Therapy Visit Comments Patient Comments I am pretty comfortable here in bed. Patient/Caregiver Goals to go home, be able to walk OT Pain Assessment Pain When Pain Assessed At Rest Pain Present Pain Present Pain Reported Location Left Hip Intensity 3 Scale Used Numeric (1 - 10) Description Aching M4 OT- IP ADL's Start: 11/02/17 16:15 Freq: Status: Active Protocol: Document 11/02/17 16:11 PJM (Rec: 11/02/17 16:32 PJ [id number]) OT OQH-Kshw-[place] General Evaluation Self-Feeding Ability Independent OT ADL-Grooming General Evaluation Grooming Ability Standby Assistance Areas Needing Assistance Retrieving/Set-up of Grooming Items Comments OT Grooming Comments Pt completing grooming after set up in ebd or chair. to bring in toiletries. OT ADL-Oral Care General Eval Oral Care Ability Independent Devices Oral Care Devices Toothbrush Comments Oral Care Comments after set up in bed or chair OT ADL-Dressing General Eval Lower Body Dressing Ability Maximum Assistance Areas Needing Assistance Pants/Shorts Socks Shoes Comments OT Dressing Comments Pt max assist with lower body dressing without AED. Pt not aware of how to use generation mechanic helper to get pants over feet. Began education re: use of generation mechanic helper for donning pants and doffing socks. Pt states he is familiar with sock aid but will need to practice it's use . Pt uses long shoe horn at home. Normally wears tie shoes . Reluctant to try slip ons due to lack of support. Recommend trial of elastic laces. OT ADL-Toileting General Evaluation Toileting Ability Total Assistance Comments OT Toileting Comments Pt still has sharma in place. OT ADL-Bathing Bathing Type Bathing Type Sponge Bath Comments OT Bathing Comments Max assist by nursing staff at present. M5 OT- IP IADL's Start: 11/02/17 16:15 Freq: Status: Active Protocol: Document 11/02/17 16:11 PJM (Rec: 11/02/17 16:32 PJM [id number]) OT-Instrumental Activities of Daily Living Deficits IADL Deficits Identified Deficits Home Safety Awareness Awareness of Need for Assistance at Home Good Awareness Medication Management Medication Management No Deficits Identified Money Management Money Management No Deficits Identified Meal Preparation Meal Preparation Caregiver Provides Assist Gang Saw Operator Gang Saw Operator Caregiver Provides Assist Driving Driving Caregiver Provides Assist M6 OT- IP Functional Cognition Start: 11/02/17 16:15 Freq: Status: Active Protocol: Document 11/02/17 16:11 PJM (Rec: 11/02/17 16:32 PJM NR) Cognitive Factors Limiting Selfcare Function Cognitive Ability Level of Alertness Alert Patient Orientation Name Age Birthday Month Date Year Day of Week Place Situation Attention Span Ability Capable of Focused Attention Capable of Sustained Attention Ability to Follow Commands Able to Follow One Step Commands OT- Vision and Hearing OT- Hearing Assessment OT- Hearing Assessment WFL OT- Vision Assessment Visual Acuity WFL Glasses All The Time Vision Assessment Comments Pt denies any recent vision changes. M7 OT- IP Mobility and Balance Start: 11/02/17 16:15 Freq: Status: Active Protocol: Document 11/02/17 16:11 PJM (Rec: 11/02/17 16:32 PJM [email or web address]) OT-Transfer Assessment Comments Mobility Comments Pt just back to bed with P.T. and declined OOB this session. OT- Gait Assessment Comments Gait Ability Comments See P.T. evaluation M8 OT- IP Objective Assessments Start: 11/02/17 16:15 Freq: Status: Active Protocol: Document 11/02/17 16:11 PJM (Rec: 11/02/17 16:32 PJM [email or web address]) OT Gross Range of Motion Upper Extremity Range of Motion Assessment Within Functional Limits OT Strength Upper Extremity Strength Assessment Within Functional Limits OT- Coordination Assessment Comments Coordination Comments Pt reports difficulty with small buttons at home. Pt/ requesting information re: adaptive equipt for this. Provided education and resource info for button hook. OT-Muscle Tone Assessment Muscle Tone WNL Yes OT Sensation Assessment Comments Summary Comments Pt denies any deficits M9 OT- IP Assessment and Plan Start: 11/02/17 16:15 Freq: Status: Active Protocol: Document 11/02/17 16:11 PJM (Rec: 11/02/17 16:32 PJM [id number]) OT Summary Assessment and Plan Potential Rehabilitation Potential Good Analytic Complexity at Evaluation Low Summary OT Impairments Pain Balance Functional Mobility Grooming Dressing Toileting Bathing Toilet Transfers Shower Transfers Assessment Summary Low complexity OT assessment completed with emphasis on self care skills after L recent hip fx and hemiarthroplasty. Pt progressing slowly with P.T. and not able to ambulate today . Pt is functioning far below his usual self care baseline and currently has performance deficits in standing grooming, dressing, toileting, bathing and all functional mobility and transfers. Pt not safe to return home with his elderly who cannot provide much physical assist. Will provide OT services here to address goals below. Goals Grooming Goal Independent Dressing Goal Minimal Assistance Toileting Goal Minimal Assistance Toilet Transfer Goal Minimal Assistance Bedside Commode Days to Meet Goals 5 Frequency of Treatment Frequency Of Treatment Once a Day Treatment Plan OT Treatment Plan ADL Training Functional Mobility Patient/Family Education Discharge Planning Discharge Recommendations OT Discharge Recommendations SNF Rehab Home Equipment Needs to bring in pt's generation mechanic helper, sock aid, long shoe horn.
[2017-11-02] MEDS: SENNOSIDES 8.6 MG TABLET 17.2 MG PO (19:54)
[2017-11-02] MEDS: DOCUSATE 100 MG CAPSULE PO (19:55)
[2017-11-03] MEDS: MORPHINE 2 MG/ML INJ IV ×2 (00:07→06:06)
[2017-11-03 00:20] VITALS: O2SAT 93
[2017-11-03] MEDS: OXYCODONE IR 5 MG TABLET PO ×5 (03:09→20:23)
[2017-11-03] MEDS: ACETAMINOPHEN 325 MG TABLET 650 MG PO ×2 (03:11→12:55)
[2017-11-03 03:38] VITALS: BP 128/61; PULSE 93; RESP 18; TEMP 37.3; O2SAT 92
[2017-11-03] MEDS: SODIUM CHLORIDE 0.9% FLUSH 10 ML IV ×3 (06:06→20:22)
[2017-11-03] MEDS: PANTOPRAZOLE 20 MG TABLET PO (06:07)
--- NOTE | 2017-11-03 06:22 | PC.NURSE ---
Pt. requested to DC his Marshall later this morning. Temp. down to 98.3 after taking 650 mg. of Tylenol PO. Using Incentive Spirometer x10 breaths & up to 1850.
[2017-11-03 06:30] VITALS: TEMP 36.8
[2017-11-03 08:00] VITALS: BP 118/55; PULSE 90; RESP 16; TEMP 37; O2SAT 94
--- NOTE | 2017-11-03 08:16 | PM.PNPO.1 ---
Subjective Date Patient Seen: 11/03/17 Time Patient Seen: 08:16 Interval history: Pt is s/p Lt Hip hemiarthroplasty PD [address] Calix[address] In bed. Having breakfast. at bedside. No complaints of pain in the hip at this point. His only mobilize to a chair with physical therapy. Will need a correction facility at discharge for further therapy and rehabilitation. Patient was on [facility]. is concerned because they have [employer] insurance and if he will be accepted into a SNF or not. Exam Vital Signs (past 8 hours): Vital Signs - 8 hr 11/03/17 00:20 11/03/17 03:38 11/03/17 06:30 Temperature 99.1 F 98.3 F Pulse Rate 93 H Respiratory Rate 18 Blood Pressure 128/61 H Pulse Oximetry 93 92 Pulse Oximetry 92 Oxygen Delivery Method Room Air Oxygen Flow Rate 0 Narrative Exam Narrative: Patient in bed. Appears comfortable. Alert and orient x3. Moderate swelling on left thigh. Marshall in. 5/5 LT ankle strength. Bilateral calf soft and nontender. Left hip Aquacel dressing with some drainage. Objective Labs Result Diagrams: 11/02/17 05:46 Assessment & Plan Post-op Postoperative Procedures Operation Date: 11/01/17 16:30 Actual Procedures Side Surgeon p Unipolar Cannulated Left Shade Calix MD Patient is postop day 2 left hip hemiarthroplasty. Weightbearing as tolerated. No hip precautions because he had an anterolateral approach. Continue DVT prophylaxis with Lovenox. Continue pain medication. Discharge to SNF when medically stable. Follow up in orthopedic office 10-14 days postop. Time Spent With Patient less than 15 minutes Quality VTE Deep Vein Thrombosis/Pulmonary Embolism Present on Admission: No
--- NOTE | 2017-11-03 08:21 | P.PN_ITS ---
Subjective Date Patient Seen: 11/03/17 Time Patient Seen: 08:16 Interval history: Pt is s/p Lt Hip hemiarthroplasty PD [address] Calix. In bed. Having breakfast. at bedside. No complaints of pain in the hip at this point. His only mobilize to a chair with physical therapy. Will need a prison facility at discharge for further therapy and rehabilitation. Patient was on [facility]. is concerned because they have [employer] insurance and if he will be accepted into a SNF or not. Exam Vital Signs (past 8 hours): Vital Signs - 8 hr 3 11/03/17 00:20 11/03/17 03:38 11/03/17 06:30 Temperature 99.1 F 98.3 F Pulse Rate 93 H Respiratory Rate 18 Blood Pressure 128/61 H Pulse Oximetry 93 92 Pulse Oximetry 92 Oxygen Delivery Method Room Air Oxygen Flow Rate 0 Narrative Exam Narrative: Patient in bed. Appears comfortable. Alert and orient x3. Moderate swelling on left thigh. Marshall in. 5/5 LT ankle strength. Bilateral calf soft and nontender. Left hip Aquacel dressing with some drainage. Objective Labs Result Diagrams: 11/02/17 05:46 Assessment & Plan Post-op Postoperative Procedures Operation Date: 11/01/17 16:30 Actual Procedures Side Surgeon p Unipolar Cannulated Left Shade Calix MD Patient is postop day 2 left hip hemiarthroplasty. Weightbearing as tolerated. No hip precautions because he had an anterolateral approach. Continue DVT prophylaxis with Lovenox. Continue pain medication. Discharge to SNF when medically stable. Follow up in orthopedic office 10-14 days postop. Time Spent With Patient less than 15 minutes Quality VTE Deep Vein Thrombosis/Pulmonary Embolism Present on Admission: No
[2017-11-03] MEDS: DOCUSATE 100 MG CAPSULE PO ×2 (08:45→20:21)
[2017-11-03] MEDS: ENOXAPARIN 40 MG/0.4 ML SYRINGE SUBCUT (08:45)
[2017-11-03] MEDS: FLUoxetine 10 MG CAPSULE PO (08:45)
--- NOTE | 2017-11-03 08:46 | PM.PN.1 ---
Subjective Date Patient Seen: 11/03/17 Time Patient Seen: 08:46 Interval history: Patient sitting in bed having breakfast. at bedside. Patient is in no acute distress and appears comfortable at this point in time. Exam Vital Signs (past 8 hours): Vital Signs - 8 hr 11/03/17 03:38 11/03/17 06:30 Temperature 99.1 F 98.3 F Pulse Rate 93 H Respiratory Rate 18 Blood Pressure 128/61 H Pulse Oximetry 92 Pulse Oximetry 92 Oxygen Delivery Method Room Air Oxygen Flow Rate 0 Const General: cooperative, healthy appearing, comfortable, well developed and well groomed Nutritional Appearance: overweight Orientation: alert, awake and oriented x3 HENMT Head: normal to inspection, normocephalic and atraumatic Eyes General: appearance normal, both eyes and all related structures Pupils: PERRL and pupil size bilaterally 2.0 Neck Neck: normal visual inspection and supple Other: No neck vein distention or lymphadenopathy Chest Chest: normal inspection of the chest Resp Effort & Inspection: normal respiratory effort and able to speak in complete sentences Auscultation: clear to auscultation bilaterally Cardio Rate: regular rate Heart Sounds: S1 normal and S2 normal Other: No rubs, clicks, murmurs heard. GI Inspection: normal to inspection Palpation: soft Auscultation: normal bowel sounds Other: Not tender to palpation Other: Marshall to down drain in place with clear jamila urine. Back/Spine/Pelvis Back: normal to inspection Other: Aquacel surgical dressing over the left hip intact without drainage. Moderate swelling left thigh, but soft. Skin General: no rashes or lesions noted, dry skin and warm Neuro General: alert, awake and oriented x3 Cognition: normal cognition Speech: speech normal Motor: muscle tone normal throughout Sensory Exam: no sensory deficits noted Extrem General: normal to inspection, capillary refill normal, no pedal edema and no calf tenderness Psych Appearance: grossly normal Mental Status: mental status grossly normal Speech and Movement: speech and movement normal Mood: congruent mood Affect: normal affect Attitude: cooperative Thought Process: normal Thought Content: normal Judgment: judgment good Objective Labs Result Diagrams: 11/02/17 05:46 Assessment & Plan Plan: Assessment/Plan Narrative: 1. Left subcapital femoral neck fracture. Status post left hemiarthroplasty with unipolar. He has continued to required IV pain control during the cell liner. I have increased his oxycodone q.4 hours an attempt to replace the IV narcotics. Will also remove his Marshall catheter this morning and encourage him to ambulate with assistance. Followed by Orthopedics 2. Intractable hiccups he has had bed having hiccups now for over 12 hr. Resolved 3. History of asthma he uses the albuterol very infrequently. His lungs are clear this morning without any wheezes or rales. He is using the incentive spirometer appropriately. 4. Code status patient desires to be full code 5. DVT prophylaxis: He is on prophylactic dose of Lovenox and baby aspirin 6. Disposition: His is very anxious about him being discharged any earlier that Monday. She lives on [facility] and is insistent that she be here on the day that he is going to be discharged. We will continue physical therapy and occupational therapy. Care management is working on group home facility placement. Quality VTE Deep Vein Thrombosis/Pulmonary Embolism Present on Admission: No
[2017-11-03] MEDS: SENNOSIDES 8.6 MG TABLET 17.2 MG PO ×2 (08:49→20:21)
--- NOTE | 2017-11-03 08:56 | P.PN_ITS ---
Subjective Date Patient Seen: 11/03/17 Time Patient Seen: 08:46 Interval history: Patient sitting in bed having breakfast. at bedside. Patient is in no acute distress and appears comfortable at this point in time. Exam Vital Signs (past 8 hours): Vital Signs - 8 hr 3 11/03/17 03:38 11/03/17 06:30 Temperature 99.1 F 98.3 F Pulse Rate 93 H Respiratory Rate 18 Blood Pressure 128/61 H Pulse Oximetry 92 Pulse Oximetry 92 Oxygen Delivery Method Room Air Oxygen Flow Rate 0 Const General: cooperative, healthy appearing, comfortable, well developed and well groomed Nutritional Appearance: overweight Orientation: alert, awake and oriented x3 HENMT Head: normal to inspection, normocephalic and atraumatic Eyes General: appearance normal, both eyes and all related structures Pupils: PERRL and pupil size bilaterally 2.0 Neck Neck: normal visual inspection and supple Other: No neck vein distention or lymphadenopathy Chest Chest: normal inspection of the chest Resp Effort & Inspection: normal respiratory effort and able to speak in complete sentences Auscultation: clear to auscultation bilaterally Cardio Rate: regular rate Heart Sounds: S1 normal and S2 normal Other: No rubs, clicks, murmurs heard. GI Inspection: normal to inspection Palpation: soft Auscultation: normal bowel sounds Other: Not tender to palpation Other: Marshall to down drain in place with clear jamila urine. Back/Spine/Pelvis Back: normal to inspection Other: Aquacel surgical dressing over the left hip intact without drainage. Moderate swelling left thigh, but soft. Skin General: no rashes or lesions noted, dry skin and warm Neuro General: alert, awake and oriented x3 Cognition: normal cognition Speech: speech normal Motor: muscle tone normal throughout Sensory Exam: no sensory deficits noted Extrem General: normal to inspection, capillary refill normal, no pedal edema and no calf tenderness Psych Appearance: grossly normal Mental Status: mental status grossly normal Speech and Movement: speech and movement normal Mood: congruent mood Affect: normal affect Attitude: cooperative Thought Process: normal Thought Content: normal Judgment: judgment good Objective Labs Result Diagrams: 11/02/17 05:46 Assessment & Plan Plan: Assessment/Plan Narrative: 1. Left subcapital femoral neck fracture. Status post left hemiarthroplasty with unipolar. 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 I have increased his oxycodone q.4 hours an attempt to replace the IV narcotics. Will also remove his Marshall catheter this morning and encourage him to ambulate with assistance. Followed by Orthopedics 2. Intractable hiccups he has had bed having hiccups now for over 12 hr. Resolved 3. History of asthma he uses the albuterol very infrequently. His lungs are clear this morning without any wheezes or rales. He is using the incentive spirometer appropriately. 4. Code status patient desires to be full code 5. DVT prophylaxis: He is on prophylactic dose of Lovenox and baby aspirin 6. Disposition: His is very anxious about him being discharged any earlier that Monday. She lives on [facility] and is insistent that she be here on the day that he is going to be discharged. We will continue physical therapy and occupational therapy. Care management is working on custodial facility placement. Quality VTE Deep Vein Thrombosis/Pulmonary Embolism Present on Admission: No
--- NOTE | 2017-11-03 10:40 | PT.IPTN ---
Current Diagnoses Unspecified intracapsular fracture of left femur, initial encounter for closed fracture (10/31/17) Surgery Performed Operation Date: 11/01/17 16:30 Actual Procedures p Unipolar Cannulated(Left) - Shade Calix MD Physical Therapy Treatment Note M2 PT-IP Current Condition Start: 11/02/17 13:26 Freq: NEEDED Status: Active Protocol: Document 11/02/17 13:26 AB (Rec: 11/02/17 13:42 AB [id number]) Physical Therapy Current Condition Current Condition Evaluation Date 11/02/17 Treatment Diagnosis femoral neck fx s/p L hip hemiarthroplasty Onset Date 10/31/17 Precautions Other Precautions per Dr. Calix: Plan for aftercare: The patient will be weight-bearing as tolerated with no hip precautions given his anterolateral approach. Plan discharge to halfway facility. Weight Bearing Status Weight Bearing Status Weight Bear as Tolerated M3 PT-IP Subjective Start: 11/02/17 13:26 Freq: NEEDED Status: Active Protocol: Document 11/03/17 10:40 GGD (Rec: 11/03/17 11:40 GGD [id number]) Subjective Physical Therapy Visit Type Type Treatment Note Visit Start Time 10:15 Visit Stop Time 10:40 Total Visit Minutes 35 Number of MUSEUM TECHNICIAN Visits 2 Physical Therapy Visit Comments Patient Comments Pt willing to get up out of bed. Therapy Pain Assessment Pain When Pain Assessed At Rest Pain Present Pain Present Pain Reported Location Left Hip Intensity 4 Scale Used Numeric (1 - 10) Pain Behaviors Calling Out Guarding M4 PT-IP Mobility and Gait Start: 11/02/17 13:26 Freq: NEEDED Status: Active Protocol: Document 11/03/17 10:40 GGD (Rec: 11/03/17 11:40 GGD [id number]) PT-Bed Mobility Assessment Supine to Sit Supine to Sit Maximum Assistance Head of Bed Elevated Scooting Scooting to Edge of Bed Moderate Assistance PT-Transfer Assessment Sit to and From Stand Sit to and from Stand Moderate Assistance 1 Person Assistance Use of Upper Extremities Equipment Transfer Assistive Device Gait Belt Front Wheeled Walker Transfers Transfer Destination Chair Transfer Technique Squat Pivot Transfer Ability Level of Assist Maximum Assistance 1 Person Assistance Comments Mobility Comments Pt sit to stand x 6. Stood for 15 secs for dressing change. M5 PT-IP Objective Assessments Start: 11/02/17 13:26 Freq: NEEDED Status: Active Protocol: Document 11/02/17 13:26 AB (Rec: 11/02/17 13:42 AB [id number]) Orientation Orientation/Cognition Level of Alertness Alert Orientation Name Age Birthday Year Place Situation Safety Awareness Decreased Safety Awareness Gross Range of Motion Lower Extremity ROM Assessment Right Impaired Strength Lower Extremity Strength Assessment Bilaterally Impaired Comments Strength Comments h/o R hip surgery and currently just had L hip hemiarthroplasty RLE 3-/5 LLE 4-/5 M6 PT-IP Treatment Start: 11/02/17 13:26 Freq: NEEDED Status: Active Protocol: Document 11/03/17 10:40 GGD (Rec: 11/03/17 11:40 GGD [id number]) Physical Therapy Treatment Exercises Exercises Ankle Pumps Gluteal Sets Quad Sets Heel Slides Education Education Provided Safety M7 PT-IP Assessment and Plan Start: 11/02/17 13:26 Freq: NEEDED Status: Active Protocol: Document 11/03/17 10:40 GGD (Rec: 11/03/17 11:40 GGD [id number]) PT Summary Assessment and Plan Summary Assessment Summary Pt unable to stand for transfer with FWW. He was not able to follow cues for upright standing posture and would sit suddenly. He couldn' t dispensing and measuring optician FWW for weight shift. Frequency of Treatment Frequency Of Treatment Twice a Day Treatment Plan Other Recommendations and Next Treatment ambulation, bed mobility, Focus transfers. Recommendations To Nursing Amount of Assist Needed 2 Person Assist Discharge Recommendations PT Discharge Recommendations SNF Rehab
--- NOTE | 2017-11-03 10:40 | PC.NURSE ---
Day shiift: Dressing changed at 1040 when Pt up w/ PT. Pt unable to stand for more than 15 seconds. Poor body mechanics. Not using good LE or hands. Specific and easy to follow instructions given to Pt by PT but unable to prteocess more than one thing at a time. Sitting in chair. Call light in reach.
--- NOTE | 2017-11-03 11:43 | PC.NURSE ---
Day shift: Pt sitting in chair. Used call light and wanted grab bar so he could repostion himself. He was unable to do so himself. COOLING TOWER TECHNICIAN and RN helped him reposition. Call light in reach.
--- NOTE | 2017-11-03 14:51 | PT.IPTN ---
Current Diagnoses Unspecified intracapsular fracture of left femur, initial encounter for closed fracture (10/31/17) Surgery Performed Operation Date: 11/01/17 16:30 Actual Procedures p Unipolar Cannulated(Left) - Shade Calix MD Physical Therapy Treatment Note M2 PT-IP Current Condition Start: 11/02/17 13:26 Freq: NEEDED Status: Active Protocol: Document 11/02/17 13:26 AB (Rec: 11/02/17 13:42 AB [id number]) Physical Therapy Current Condition Current Condition Evaluation Date 11/02/17 Treatment Diagnosis femoral neck fx s/p L hip hemiarthroplasty Onset Date 10/31/17 Precautions Other Precautions per Dr. Calix: Plan for aftercare: The patient will be weight-bearing as tolerated with no hip precautions given his anterolateral approach. Plan discharge to [facility] facility. Weight Bearing Status Weight Bearing Status Weight Bear as Tolerated M3 PT-IP Subjective Start: 11/02/17 13:26 Freq: NEEDED Status: Active Protocol: Document 11/03/17 14:34 GGD (Rec: 11/03/17 14:50 GGD [id number]) Subjective Physical Therapy Visit Type Type Treatment Note Visit Start Time 13:55 Visit Stop Time 14:30 Total Visit Minutes 40 Number of NATIONAL SALES Visits 3 Physical Therapy Visit Comments Patient Comments Pt wants to stay in chair. Therapy Pain Assessment Pain When Pain Assessed At Rest Pain Present Pain Present Pain Reported M4 PT-IP Mobility and Gait Start: 11/02/17 13:26 Freq: NEEDED Status: Active Protocol: Document 11/03/17 14:34 GGD (Rec: 11/03/17 14:50 GGD [id number]) PT-Transfer Assessment Transfers Transfer Destination Chair Transfer Ability Level of Assist Maximum Assistance 1 Person Assistance Use of Upper Extremities Comments Mobility Comments work on sit to stand from chair. He was able to one stand for 5 second. 5 other stand attempts unsucessful. He needed max a for scooting in chair. M6 PT-IP Treatment Start: 11/02/17 13:26 Freq: NEEDED Status: Active Protocol: Document 11/03/17 14:34 GGD (Rec: 11/03/17 14:50 GGD [id number]) Physical Therapy Treatment Exercises Exercises Ankle Pumps Gluteal Sets Quad Sets Heel Slides Seated Knee Flexion/Extension M7 PT-IP Assessment and Plan Start: 11/02/17 13:26 Freq: NEEDED Status: Active Protocol: Document 11/03/17 14:34 GGD (Rec: 11/03/17 14:50 GGD [id number]) PT Summary Assessment and Plan Summary Assessment Summary Pt unable to follow cues for scooting forward/back in chair . He not able to use UE for unloading and scooting in chair. He was not able to follow cues for upright standing posture and would sit suddenly. He has a strong posterior lean and fear of falling. He unable to get full extension of UE and knee for stand. Frequency of Treatment Frequency Of Treatment Twice a Day Treatment Plan Other Recommendations and Next Treatment sit to stand and transfers. Focus Recommendations To Nursing Amount of Assist Needed Mechanical Lift Discharge Recommendations PT Discharge Recommendations SNF Rehab
--- NOTE | 2017-11-03 15:50 | OT.IP.TRT ---
Current Diagnoses Unspecified intracapsular fracture of left femur, initial encounter for closed fracture (10/31/17) Surgery Performed Operation Date: 11/01/17 16:30 Actual Procedures p Unipolar Cannulated(Left) - Shade Calix MD Occupational Therapy Treatment Note M2 OT-IP Current Condition Start: 11/02/17 16:15 Freq: Status: Active Protocol: Document 11/02/17 16:11 PJM (Rec: 11/02/17 16:32 PJM [id number]) Occupational Therapy Current Condition Current Condition Evaluation Date 11/02/17 Treatment Diagnosis decreased self care, functional mobility s/p L hip fx from [facility] Post Operative Precautions Other Precautions per Dr. Calix: Plan for aftercare: The patient will be weight-bearing as tolerated with no hip precautions given his anterolateral approach. Plan discharge to [facility] facility. Weight Bearing Status Weight Bearing Status Weight Bear as Tolerated M3 OT- IP Subjective and Pain Start: 11/02/17 16:15 Freq: Status: Active Protocol: Document 11/03/17 15:41 PJM (Rec: 11/03/17 15:50 PJM [id number]) OT- Subjective Occupational Therapy Visit Type Type Treatment Note Visit Start Time 14:17 Visit Stop Time 14:57 Total Visit Minutes 40 Occupational Therapy Visit Comments Patient Comments I am exhausted. OT Pain Assessment Pain When Pain Assessed At Rest Pain Present Pain Present Pain Reported Location Left Hip Intensity 4 Scale Used Numeric (1 - 10) Description Aching M4 OT- IP ADL's Start: 11/02/17 16:15 Freq: Status: Active Protocol: Document 11/03/17 15:41 PJM (Rec: 11/03/17 15:50 PJM [id number]) OT ADL-Grooming General Evaluation Grooming Ability Standby Assistance Areas Needing Assistance Retrieving/Set-up of Grooming Items Applying Deodorant Combing/Brushing Hair Face Washing Comments OT Grooming Comments Increased effort and thoroughness in seated grooming tasks today OT ADL-Oral Care General Eval Oral Care Ability Standby Assistance Areas of Assistance Brushing Teeth Devices Oral Care Devices Toothbrush Comments Oral Care Comments seated in chair OT ADL-Dressing General Eval Upper Body Dressing Ability Minimal Assistance Comments OT Dressing Comments Min assist with gown change seated in chair. Pt needs max verbal cues and min assist to use band reamer machine operator to doff R sock and mod assist for use of sock aid to don sock. to bring in pt's own band reamer machine operator and sock aid for further practice here. OT ADL-Toileting Comments OT Toileting Comments did not occur this session, sharma out OT ADL-Bathing Bathing Type Bathing Type Sponge Bath General Evaluation Bathing Ability Minimal Assistance Areas Needing Assistance Wash/Dry Back Comments OT Bathing Comments min assist with mod cues for upper body sponge bath in chair M5 OT- IP IADL's Start: 11/02/17 16:15 Freq: Status: Active Protocol: Document 11/02/17 16:11 PJM (Rec: 11/02/17 16:32 PJM [id number]) OT-Instrumental Activities of Daily Living Deficits IADL Deficits Identified Deficits Home Safety Awareness Awareness of Need for Assistance at Home Good Awareness Medication Management Medication Management No Deficits Identified Money Management Money Management No Deficits Identified Meal Preparation Meal Preparation Caregiver Provides Assist Call Or Contact Centre Coach Call Or Contact Centre Coach Caregiver Provides Assist Driving Driving Caregiver Provides Assist M6 OT- IP Functional Cognition Start: 11/02/17 16:15 Freq: Status: Active Protocol: Document 11/03/17 15:41 PJM (Rec: 11/03/17 15:50 PJM [id number]) Cognitive Factors Limiting Selfcare Function Cognitive Ability Level of Alertness Drowsy Patient Orientation Name Age Birthday Month Date Year Day of Week Place Situation Problem Solving Ability Needs Assist to Identify Solutions Cognitive Comments Cognitive Assessment Comments Pt more drowsy today with decreased problem solving of AED use. M7 OT- IP Mobility and Balance Start: 11/02/17 16:15 Freq: Status: Active Protocol: Document 11/02/17 16:11 PJM (Rec: 11/02/17 16:32 PJM [email or web address]) OT-Transfer Assessment Comments Mobility Comments Pt just back to bed with P.T. and declined OOB this session. OT- Gait Assessment Comments Gait Ability Comments See P.T. evaluation M8 OT- IP Objective Assessments Start: 11/02/17 16:15 Freq: Status: Active Protocol: Document 11/02/17 16:11 PJM (Rec: 11/02/17 16:32 PJM [id number]) OT Gross Range of Motion Upper Extremity Range of Motion Assessment Within Functional Limits OT Strength Upper Extremity Strength Assessment Within Functional Limits OT- Coordination Assessment Comments Coordination Comments Pt reports difficulty with small buttons at home. Pt/ requesting information re: adaptive equipt for this. Provided education and resource info for button hook. OT-Muscle Tone Assessment Muscle Tone WNL Yes OT Sensation Assessment Comments Summary Comments Pt denies any deficits M9 OT- IP Assessment and Plan Start: 11/02/17 16:15 Freq: Status: Active Protocol: Document 11/03/17 15:41 PJM (Rec: 11/03/17 15:50 PJM [id number]) OT Summary Assessment and Plan Potential Rehabilitation Potential Good Summary OT Impairments Pain Balance Functional Mobility Grooming Dressing Toileting Bathing Toilet Transfers Shower Transfers Assessment Summary Pt progressing slowly with mobility with P.T. and has not yet ambulated. Increased participation and effort noted with seated grooming and sponge bath today. Pt participating in donning and doffing socks with adaptive equipt with min to mod assist depending on task. Pt not yet ready to try pants due to difficulty with standing. Pt will need SNF for further subacute rehab prior to return to [facility] home with 3 stairs to enter. Goals Bathing Goal Minimal Assistance OT-Other Goals Pt SBA with seated sponge bath . Days to Meet Goals 5 Frequency of Treatment Frequency Of Treatment Once a Day Treatment Plan OT Treatment Plan ADL Training Functional Mobility Patient/Family Education Discharge Planning Discharge Recommendations OT Discharge Recommendations SNF Rehab
[2017-11-03 16:37] VITALS: BP 115/52; PULSE 90; RESP 18; TEMP 36.8
--- NOTE | 2017-11-03 16:40 | CM.DPC ---
MTP Ongoing Assessment: 11/03/17 Case reviewed, EMR reviewed and met with patient briefly as he was working with nurse and CRACKER SPRAYER; informed him have left 2 messages for spouse Maira in response to her calls to [facility]. Contacted: VM message by spouse Maira left for DCP at 9:16 am and again at 10:15am. DCP called spouse back on her cell phone and left VM messg. at 9:30 am, and then left another message at their home phone land line at 10:40. (Nurse Croft stated spouse is having difficulty using her cell phone.) In messages: Spouse very concerned about DC plan and when patient may discharge, when going to rehab facility. DCP left messages both times: Discharge to facility ([facility]) is now in the hands of [facility] as we await an auth from them. Did not receive return call. (Per previous DCP handoff note, spouse prefers [facility] and referral has already been submitted to Shantelle at [facility].) Spouse concerned about getting back to [place] Monday and catching ferry, wanting to get clothing and appropriate d/c items for patient. She had left by the time DCP went to pt room, so spoke with nurse Croft who stated spouse will not be back today, but plans to return to tomorrow. He is aware of wait for [facility] auth. Contacted by MARLYN Zamudio, and discussed plan to have patient d/c to SNF when auth received. He stated patient is still having pain issues, is on IV pain med, and he plans to transition him to oral pain meds today. He definitely needs to stay the night, so hope for Auth and d/c plan Monday. Contacted by: ESTHER Mcgregor, also regarding d/c plan and she was informed of the Auth wait pending [facility] approval. She verbalized understanding and stated spouse also has added stressor of disabled son and pets to care for at home in [place]. Updated clinicals and prog notes sent to [facility] today. Called Shantelle at [facility] and gave update on pt progress today, spouse concerns, and plan for d/c there once [facility] Auth approval received. DCP left VM messg for Domenica at [facility] (Charlotte manzanares on 11/03); requested update on this Auth and requested to call DCP back with any news. Plan: D/C to SNF ([facility]) once [facility] Auth approval. Need to call [facility] again on Monday to see if any update. Call [facility] with update. Keep spouse Maira in the loop as she has some anxiety about d/c plan and timing. Roberta Bedoya RN
[2017-11-03 19:24] VITALS: BP 121/58; PULSE 86; RESP 18; TEMP 36.8; O2SAT 95
[2017-11-03] MEDS: ONDANSETRON 4 MG ODT PO (20:22)
[2017-11-04] VITALS (9 sets, daily range): BP systolic 112–139; BP diastolic 54–87; PULSE 79–101; RESP 16–18; TEMP 36.5–37.5; O2SAT 92–99
[2017-11-04] MEDS: OXYCODONE IR 5 MG TABLET PO ×5 (00:37→21:10)
[2017-11-04] MEDS: PANTOPRAZOLE 20 MG TABLET PO (05:18)
--- NOTE | 2017-11-04 07:26 | PM.PNPO.1 ---
Subjective Date Patient Seen: 11/04/17 Time Patient Seen: 07:26 Interval history: Patient's pain is [id number]. Denies fever chills. Otherwise without complaints. Exam Vital Signs (past 8 hours): Vital Signs - 8 hr 11/04/17 00:48 11/04/17 03:48 Temperature 98.8 F 98.9 F Pulse Rate 101 H 100 H Respiratory Rate 18 18 Blood Pressure 112/85 H 139/87 H Pulse Oximetry 96 99 Pulse Oximetry 99 Oxygen Delivery Method Room Air Oxygen Flow Rate 0 Narrative Exam Narrative: Patient resting comfortably in bed in no apparent distress. Left hip dressing clean, dry and intact. Neurovascular status is intact to the distal left lower extremity. Objective Labs Result Diagrams: 11/02/17 05:46 Assessment & Plan Post-op Postoperative Procedures Operation Date: 11/01/17 16:30 Actual Procedures Side Surgeon p Unipolar Cannulated Left Shade Calix MD Postop day 3 left hip hemiarthroplasty. Weightbearing as tolerated with no hip precautions. Patient has chronic balance problems. Patient is only able to stand for 5 sec yesterday with physical therapy. Needed max assist to move from bed to chair. Discharge to half-way facility when medically stable. Time Spent With Patient less than 15 minutes Quality VTE Deep Vein Thrombosis/Pulmonary Embolism Present on Admission: No
[2017-11-04] MEDS: ACETAMINOPHEN 325 MG TABLET 650 MG PO (08:30)
[2017-11-04] MEDS: DOCUSATE 100 MG CAPSULE PO ×2 (08:30→21:13)
[2017-11-04] MEDS: ENOXAPARIN 40 MG/0.4 ML SYRINGE SUBCUT (08:30)
[2017-11-04] MEDS: FLUoxetine 10 MG CAPSULE PO (08:31)
[2017-11-04] MEDS: SODIUM CHLORIDE 0.9% FLUSH 10 ML IV ×2 (08:32→21:11)
[2017-11-04] MEDS: SENNOSIDES 8.6 MG TABLET 17.2 MG PO ×2 (08:32→21:13)
--- NOTE | 2017-11-04 09:34 | CM.DPC ---
Addendum entered by Elizabeth Reilly LPN 11/04/17 12:14: Dr. Partida's progress report is noted. Pt in process of weaning from IV pain medication to orals. Marshall out today. DC likely tomorrow if adequate pain management is achieved. PASRR: completed in prep for same. Will check in with pt and his spouse at 1400 when she arrives from [place], as planned. P: [facility], likely tomorrow. [facility] CM team/Elo is updated now and that clinical for today is faxed. [facility] DNS/Admissions nurse if updated. Original Note: DCP: continued: Case received again and EMR reviewed for last few days. Spoke by phone with pt's spouse who is expressing great anxiety over the POC and wants it clear that pt does have some memory deficits at baseline and these are quite a bit worse since the surgery and all the medications. She requests that pt not be d/c'd until she is here. She went home last night ([facility]) and [place] today [place] about 1400. Agreed to meet with her when she gets here. Called [facility] Domenica to check on status of [facility] authorization. She reviewed notes and agrees authorization is appropriate for [facility] when pt is stable for same. Will call [facility] admissions line now in followup. Unclear if pt will d/c today. Need: PASRR: plan to complete before d/c. KATIE also needed as per protocol: will go over with spouse when she arrives.
--- NOTE | 2017-11-04 09:40 | PT.IPTN ---
Current Diagnoses Unspecified intracapsular fracture of left femur, initial encounter for closed fracture (10/31/17) Surgery Performed Operation Date: 11/01/17 16:30 Actual Procedures p Unipolar Cannulated(Left) - Shade Calix MD Physical Therapy Treatment Note M2 PT-IP Current Condition Start: 11/02/17 13:26 Freq: NEEDED Status: Active Protocol: Document 11/02/17 13:26 AB (Rec: 11/02/17 13:42 AB [id number]) Physical Therapy Current Condition Current Condition Evaluation Date 11/02/17 Treatment Diagnosis femoral neck fx s/p L hip hemiarthroplasty Onset Date 10/31/17 Precautions Other Precautions per Dr. Calix: Plan for aftercare: The patient will be weight-bearing as tolerated with no hip precautions given his anterolateral approach. Plan discharge to group home facility. Weight Bearing Status Weight Bearing Status Weight Bear as Tolerated M3 PT-IP Subjective Start: 11/02/17 13:26 Freq: NEEDED Status: Active Protocol: Document 11/04/17 09:40 GGD (Rec: 11/04/17 11:32 GGD [id number]) Subjective Physical Therapy Visit Type Type Treatment Note Visit Start Time 09:00 Visit Stop Time 09:40 Total Visit Minutes 40 Number of CANDY PACKER Visits 4 Physical Therapy Visit Comments Patient Comments Pt willing to get up. Therapy Pain Assessment Pain When Pain Assessed During Mobility Pain Present Pain Present Pain Reported M4 PT-IP Mobility and Gait Start: 11/02/17 13:26 Freq: NEEDED Status: Active Protocol: Document 11/04/17 09:40 GGD (Rec: 11/04/17 11:32 GGD [id number]) PT-Bed Mobility Assessment Supine to Sit Supine to Sit Moderate Assistance 2 Person Assistance Head of Bed Elevated Scooting Scooting to Edge of Bed Moderate Assistance PT-Transfer Assessment Sit to and From Stand Sit to and from Stand Minimal Assistance Moderate Assistance 1 Person Assistance 2 Person Assistance Use of Upper Extremities Equipment Transfer Assistive Device Gait Belt Front Wheeled Walker Transfers Transfer Destination Chair Transfer Technique Stand Step Pivot Transfer Ability Level of Assist Maximum Assistance 2 Person Assistance Use of Upper Extremities Comments Mobility Comments Pt sit to stand x 3. He need min A x2 to mod A x 1 person. He need cues for posture and hand placement. M5 PT-IP Objective Assessments Start: 06/21/18 13:26 Freq: NEEDED Status: Active Protocol: Document 11/02/17 13:26 AB (Rec: 11/02/17 13:42 AB [id number]) Orientation Orientation/Cognition Level of Alertness Alert Orientation Name Age Birthday Year Place Situation Safety Awareness Decreased Safety Awareness Gross Range of Motion Lower Extremity ROM Assessment Right Impaired Strength Lower Extremity Strength Assessment Bilaterally Impaired Comments Strength Comments h/o R hip surgery and currently just had L hip hemiarthroplasty RLE 3-/5 LLE 4-/5 M6 PT-IP Treatment Start: 11/02/17 13:26 Freq: NEEDED Status: Active Protocol: Document 11/04/17 09:40 GGD (Rec: 11/04/17 11:32 GGD [id number]) Physical Therapy Treatment Exercises Exercises Ankle Pumps Quad Sets Education Education Provided Weight Bearing Status Safety M7 PT-IP Assessment and Plan Start: 11/02/17 13:26 Freq: NEEDED Status: Active Protocol: Document 11/04/17 09:40 GGD (Rec: 11/04/17 11:32 GGD [id number]) PT Summary Assessment and Plan Summary Assessment Summary Pt able to sit to stand with less assist. He was able to transfer with small steps and assist to move LLE. He had a flexed truck with standing and transfers. He didn't have foot clearance for functional gait. Treatment Plan Other Recommendations and Next Treatment sit to stand and transfers. Focus Recommendations To Nursing Amount of Assist Needed 2 Person Assist Mechanical Lift Discharge Recommendations PT Discharge Recommendations SNF Rehab
--- NOTE | 2017-11-04 10:11 | OT.IP.TRT ---
Current Diagnoses Unspecified intracapsular fracture of left femur, initial encounter for closed fracture (10/31/17) Surgery Performed Operation Date: 11/01/17 16:30 Actual Procedures p Unipolar Cannulated(Left) - Shade Calix MD Occupational Therapy Treatment Note M2 OT-IP Current Condition Start: 11/02/17 16:15 Freq: Status: Active Protocol: Document 11/04/17 10:00 ADH (Rec: 11/04/17 10:07 [facility] [id number]) Occupational Therapy Current Condition Current Condition Evaluation Date 11/02/17 Treatment Diagnosis decreased self care, functional mobility s/p L hip fx from [facility] Post Operative Precautions Other Precautions per Dr. Calix: Plan for aftercare: The patient will be weight-bearing as tolerated with no hip precautions given his anterolateral approach. Plan discharge to detention facility. Weight Bearing Status Weight Bearing Status Weight Bear as Tolerated M3 OT- IP Subjective and Pain Start: 11/02/17 16:15 Freq: Status: Active Protocol: Document 11/04/17 10:00 ADH (Rec: 11/04/17 10:07 [facility] [id number]) OT- Subjective Occupational Therapy Visit Type Type Treatment Note Visit Start Time 09:04 Visit Stop Time 09:50 Total Visit Minutes 46 Notes Pt agreeable to OT treatment, premedicated OT Pain Assessment Pain When Pain Assessed During Weight Bearing Pain Present Pain Present Denied Pain M4 OT- IP ADL's Start: 11/02/17 16:15 Freq: Status: Active Protocol: Document 11/04/17 10:00 ADH (Rec: 11/04/17 10:07 [facility] [id number]) OT ADL-Dressing General Eval Lower Body Dressing Ability Maximum Assistance Areas Needing Assistance Underpants/Brief Comments OT Dressing Comments Pt able to stand at FWW for brief management prior/post urinating into urinal, required bUE for weight bearing and unable to assist with gown or brief management. OT ADL-Toileting General Evaluation Toileting Ability Maximum Assistance Areas Needing Assistance Manage Clothing Comments OT Toileting Comments Pt stood to urinate x 3 with FWW and min A of 2 increasing to mod/max A of 1, able to go on 3rd attempt, total A to hold urinal in place. M5 OT- IP IADL's Start: 11/02/17 16:15 Freq: Status: Active Protocol: Document 11/02/17 16:11 PJM (Rec: 11/02/17 16:32 PJM [id number]) OT-Instrumental Activities of Daily Living Deficits IADL Deficits Identified Deficits Home Safety Awareness Awareness of Need for Assistance at Home Good Awareness Medication Management Medication Management No Deficits Identified Money Management Money Management No Deficits Identified Meal Preparation Meal Preparation Caregiver Provides Assist Feather Curling Machine Operator Feather Curling Machine Operator Caregiver Provides Assist Driving Driving Caregiver Provides Assist M6 OT- IP Functional Cognition Start: 11/02/17 16:15 Freq: Status: Active Protocol: Document 11/04/17 10:00 ADH (Rec: 11/04/17 10:07 ADH [id number]) Cognitive Factors Limiting Selfcare Function Cognitive Ability Level of Alertness Alert Attention Span Ability Capable of Focused Attention Capable of Sustained Attention Ability to Follow Commands Able to Follow One Step Commands Able to Follow Multi-Step Commands M7 OT- IP Mobility and Balance Start: 11/02/17 16:15 Freq: Status: Active Protocol: Document 11/04/17 10:00 ADH (Rec: 11/04/17 10:07 ADH [id number]) OT- Bed Mobility Assessment Supine to Sit Supine to Sit Assist Moderate Assistance Scooting Scooting to Edge of Bed Moderate Assistance OT-Transfer Assessment Sit to and From Stand Sit to and from Stand Moderate Assistance 2 Person Assistance Transfers Transfer Ability Maximum Assistance 2 Person Assistance Technique Transfer Destination Bed Car Transfer Technique Stand Step Pivot Devices Transfer Assistive Devices Front Wheeled Walker Comments Mobility Comments Pt able to transfer bed->chair with FWW and mod/max A of 2, increased time and effort. Pt requesting to sit during transfer, able to continue with firm cues. Pt cont to demo flexed trunk posture in standing/sitting EOB, despite tactile and visual cues to extend trunk. Pt standing with flexed legs, fatigued quickly . Pt needing A to move LLE during modified step pivot transfer. Pt with improved direction following and participation, less resistance to moving d/t fear. M8 OT- IP Objective Assessments Start: 11/02/17 16:15 Freq: Status: Active Protocol: Document 11/02/17 16:11 PJM (Rec: 11/02/17 16:32 PJM [id number]) OT Gross Range of Motion Upper Extremity Range of Motion Assessment Within Functional Limits OT Strength Upper Extremity Strength Assessment Within Functional Limits OT- Coordination Assessment Comments Coordination Comments Pt reports difficulty with small buttons at home. Pt/ requesting information re: adaptive equipt for this. Provided education and resource info for button hook. OT-Muscle Tone Assessment Muscle Tone WNL Yes OT Sensation Assessment Comments Summary Comments Pt denies any deficits M9 OT- IP Assessment and Plan Start: 11/02/17 16:15 Freq: Status: Active Protocol: Document 11/04/17 10:00 ADH (Rec: 11/04/17 10:07 ADH [id number]) OT Summary Assessment and Plan Treatment Plan OT Treatment Plan ADL Training Functional Mobility Discharge Recommendations OT Discharge Recommendations SNF Rehab
--- NOTE | 2017-11-04 11:21 | P.PN_ITS ---
Subjective Date Patient Seen: 11/04/17 Time Patient Seen: 11:19 Interval history: No new complaints Exam Vital Signs (past 8 hours): - 11/04/17 03:48 11/04/17 07:00 11/04/17 07:30 Temperature 98.9 F 98.8 F Pulse Rate 100 H 90 Respiratory Rate 18 18 Blood Pressure 139/87 H 115/54 L Pulse Oximetry 99 94 93 Oxygen Delivery Method Room Air Oxygen Flow Rate 0 Narrative Exam Narrative: Sitting up in a chair on no no distress doing well HEENT exam unremarkable Lungs clear Heart regular rhythm Abdomen soft Neuro exam awake alert oriented Objective Labs Result Diagrams: 11/02/17 05:46 Assessment & Plan Plan: Assessment/Plan Narrative: 1. Left subcapital femoral neck fracture. Status post left hemiarthroplasty with unipolar. He has continued to required IV pain control during the night stocker. I have increased his oxycodone q.4 hours an attempt to replace the IV narcotics. Will also remove his Marshall catheter this morning and encourage him to ambulate with assistance. Followed by Orthopedics 2. Intractable hiccups. Resolved 3. History of asthma he uses the albuterol very infrequently. His lungs are clear this morning without any wheezes or rales. He is using the incentive spirometer appropriately. 4. Code status patient desires to be full code 5. DVT prophylaxis: He is on prophylactic dose of Lovenox and baby aspirin 6. Disposition: long-term facility on Monday most likely [facility] Deep Vein Thrombosis/Pulmonary Embolism Present on Admission: No
--- NOTE | 2017-11-04 13:25 | PT.IPTN ---
Current Diagnoses Unspecified intracapsular fracture of left femur, initial encounter for closed fracture (10/31/17) Surgery Performed Operation Date: 11/01/17 16:30 Actual Procedures p Unipolar Cannulated(Left) - Shade Calix MD Physical Therapy Treatment Note M2 PT-IP Current Condition Start: 11/02/17 13:26 Freq: NEEDED Status: Active Protocol: Document 11/02/17 13:26 AB (Rec: 11/02/17 13:42 AB [id number]) Physical Therapy Current Condition Current Condition Evaluation Date 11/02/17 Treatment Diagnosis femoral neck fx s/p L hip hemiarthroplasty Onset Date 10/31/17 Precautions Other Precautions per Dr. Calix: Plan for aftercare: The patient will be weight-bearing as tolerated with no hip precautions given his anterolateral approach. Plan discharge to long-term facility. Weight Bearing Status Weight Bearing Status Weight Bear as Tolerated M3 PT-IP Subjective Start: 11/02/17 13:26 Freq: NEEDED Status: Active Protocol: Document 11/04/17 13:22 GGD (Rec: 11/04/17 13:43 GGD [id number]) Subjective Physical Therapy Visit Type Type Treatment Note Visit Start Time 12:55 Visit Stop Time 13:20 Total Visit Minutes 25 Number of RADIAGRAPH OPERATOR Visits 5 Physical Therapy Visit Comments Patient Comments Pt ready to go back to bed. Therapy Pain Assessment Pain When Pain Assessed At Rest Pain Present Pain Present Pain Reported Location Left Hip Intensity 3 Scale Used Numeric (1 - 10) M4 PT-IP Mobility and Gait Start: 11/02/17 13:26 Freq: NEEDED Status: Active Protocol: Document 11/04/17 13:22 GGD (Rec: 11/04/17 13:43 GGD [id number]) PT-Bed Mobility Assessment Sit to Supine Sit to Supine Maximum Assistance 2 Person Assistance Scooting Scooting to Edge of Bed Moderate Assistance PT-Transfer Assessment Sit to and From Stand Sit to and from Stand Minimal Assistance 2 Person Assistance Use of Upper Extremities Equipment Transfer Assistive Device Gait Belt Front Wheeled Walker Transfers Transfer Technique Stand Step Pivot Transfer Ability Level of Assist Minimal Assistance 2 Person Assistance Use of Upper Extremities Comments Mobility Comments Pt stood at EOB for 1 min trying to use urinal M6 PT-IP Treatment Start: 11/02/17 13:26 Freq: NEEDED Status: Active Protocol: Document 11/04/17 13:22 GGD (Rec: 11/04/17 13:43 GGD [id number]) Physical Therapy Treatment Exercises Exercises Ankle Pumps Gluteal Sets Quad Sets Heel Slides Supine Hip Abduction Seated Knee Flexion/Extension Education Education Provided Safety M7 PT-IP Assessment and Plan Start: 11/02/17 13:26 Freq: NEEDED Status: Active Protocol: Document 11/04/17 13:22 GGD (Rec: 11/04/17 13:43 GGD [id number]) PT Summary Assessment and Plan Summary Assessment Summary Pt did better with mobilty. He was able to assist with scooting in chair. He did need single step clear cues. He was able to take small transfers steps with min assist and cues to move LLE. He had less fear of falling. Treatment Plan Other Recommendations and Next Treatment ambulation, bed mobility, Focus transfers. Recommendations To Nursing Amount of Assist Needed 2 Person Assist Mechanical Lift Discharge Recommendations PT Discharge Recommendations SNF Rehab
--- NOTE | 2017-11-04 16:40 | PC.NURSE ---
Addendum entered by Christa Alejandro R.N. 11/04/17 16:43: Continuation of same note: Later patient was asked if he needed anything for pain. Both tylenol and oxycodone were declined, pt reports he doesnt need anything for now. Was mentally clear when questioned. Pt is voiding w/out diff post sharma removal. Does have some lt upper hip edema, ppp, feet =/warm. Still has difficulty moving leg on own even in bed. Pt is pleased he is doing better today. Additionally pt has been ref his meclazine, he says he doesn't need it and he is the one making decisions about his care. Cont w/poc Original Note: Ortho: Pt reporting this am he was feeling a little disoriented and thought it was due to his pain meds. Was only off for day and time but he was concerned. Reviewed pain regime w/patient. He did not want oxycodone this am and took plain tylenol instead. Worked w/PT who reported pt did much better today, directable, able to get to the chair. However after working he did decide to take some oxycodone and this was given.
--- NOTE | 2017-11-04 17:03 | PC.NURSE ---
patient is a&o x3, sitting up in bed w/ at bedside. Patient denies any pain at this time. Drg. to hip is dry and intact w/ scant shadow drainage to drg. CMS intact, PP present w/ brisk cap refill of LE. Patient has asked to be able to finsihed dinner prior to full shift assessment to be performed. Nurse is agreeable to plan.
[2017-11-04] MEDS: ONDANSETRON 4 MG ODT PO (21:13)
[2017-11-05 00:55] VITALS: O2SAT 95
[2017-11-05] MEDS: OXYCODONE IR 5 MG TABLET PO ×4 (01:04→13:27)
[2017-11-05 04:54] VITALS: BP 115/58; PULSE 91; RESP 17; TEMP 36.4; O2SAT 95
[2017-11-05] MEDS: PANTOPRAZOLE 20 MG TABLET PO (05:31)
[2017-11-05 08:30] VITALS: BP 125/68; PULSE 83; RESP 18; TEMP 36.9; O2SAT 96
--- NOTE | 2017-11-05 08:34 | P.PN_ITS ---
Subjective Date Patient Seen: 11/05/17 Time Patient Seen: 08:30 Interval history: Postop day 4 left hemiarthroplasty for left femoral neck fracture. Patient is sitting up in bed eating breakfast. No complaints of pain today. Partner at bedside. Exam Vital Signs (past 8 hours): - 11/05/17 00:55 11/05/17 04:54 Temperature 97.5 F L Pulse Rate 91 H Respiratory Rate 17 Blood Pressure 115/58 L Pulse Oximetry 95 95 Oxygen Delivery Method Room Air Oxygen Flow Rate 0 Narrative Exam Narrative: Alert and oriented no acute distress.NCAT. Breathing unlabored on room air. Converses easily. Left hip examined. Aquacel dressing in place minimal drainage. No erythema redness or signs or symptoms of infection. Able to demonstrate dorsiflexion plantar flexion of the foot with 5/5 strength. Sensation intact to light touch in all distributions. Toes warm and well perfused Objective Labs Result Diagrams: 11/02/17 05:46 Assessment & Plan Post-op Postoperative Procedures Operation Date: 11/01/17 16:30 Actual Procedures Side Surgeon p Unipolar Cannulated Left Shade Calix MD Doing well postop day 4 status post left hemiarthroplasty. Patient does have trouble with balance and needs maximal assist. May be weight-bearing as tolerated on the left lower extremity. Use assistive devices for balance. No hip precautions with anterior lateral approach. Discharge to snf per primary. Follow up with [facility] orth[facility]ics 10-14 days Postoperative day: 4 Postoperative status: doing well Postoperative plan: routine post-op care Time Spent With Patient less than 15 minutes [facility] Deep Vein Thrombosis/Pulmonary Embolism Present on Admission: No
[2017-11-05] MEDS: ENOXAPARIN 40 MG/0.4 ML SYRINGE SUBCUT (09:13)
--- NOTE | 2017-11-05 09:13 | CM.DPC ---
Addendum entered by Elizabeth Reilly LPN 11/05/17 15:08: Dr. Partida has now ok'd pt for d/c to [facility]. Snf orders and [facility] are faxed to [facility] and place into snf packet. will follow to get him settled and then return to [place] this evening. Keeley confirms [facility] transport for w/c/1515. SUGEY Stover is calling report now. Original Note: DCP: continued: met with pt and his this morning. Pt recognizes me as this d/c store planner from yesterday and he seems aware of the rehab plan to [facility]. Pt's asks many ? about the d/c plan and the [facility] and seems to perhaps have some memory deficits. KATIE is signed after lengthy discussion and explanation of same with . ( document processed as per protocol). Anticipate d/c to [facility] later today. Ortho surgeon has seen pt this morning. Will await Dr. Partida's final decision.
[2017-11-05] MEDS: SENNOSIDES 8.6 MG TABLET 17.2 MG PO (09:14)
[2017-11-05] MEDS: DOCUSATE 100 MG CAPSULE PO (09:14)
[2017-11-05] MEDS: SODIUM CHLORIDE 0.9% FLUSH 10 ML IV (09:15)
[2017-11-05] MEDS: FLUoxetine 10 MG CAPSULE PO (09:15)
--- NOTE | 2017-11-05 11:26 | PT.IPTN ---
Current Diagnoses Unspecified intracapsular fracture of left femur, initial encounter for closed fracture (10/31/17) Surgery Performed Operation Date: 11/01/17 16:30 Actual Procedures p Unipolar Cannulated(Left) - Shade Calix MD Physical Therapy Treatment Note M2 PT-IP Current Condition Start: 11/02/17 13:26 Freq: NEEDED Status: Active Protocol: Document 11/05/17 11:16 RCC (Rec: 11/05/17 11:25 [facility] [id number]) Physical Therapy Current Condition Current Condition Evaluation Date 11/02/17 Treatment Diagnosis femoral neck fx s/p L hip hemiarthroplasty Onset Date 10/31/17 Precautions Other Precautions per Dr. Calix: Plan for aftercare: The patient will be weight-bearing as tolerated with no hip precautions given his anterolateral approach. Plan discharge to [facility] facility. Weight Bearing Status Weight Bearing Status Weight Bear as Tolerated M3 PT-IP Subjective Start: 11/02/17 13:26 Freq: NEEDED Status: Active Protocol: Document 11/05/17 11:16 RCC (Rec: 11/05/17 11:25 [facility] [id number]) Subjective Physical Therapy Visit Type Type Treatment Note Visit Start Time 10:45 Visit Stop Time 11:15 Total Visit Minutes 30 Number of GERIATRICIAN Visits 0 Physical Therapy Visit Comments Patient Comments Pt reports he is looking forward to getting the PT in today. Notes his pain is okay . Therapy Pain Assessment Pain When Pain Assessed At Rest Pain Present Pain Present Pain Reported M4 PT-IP Mobility and Gait Start: 11/02/17 13:26 Freq: NEEDED Status: Active Protocol: Document 11/05/17 11:16 RCC (Rec: 11/05/17 11:25 [facility] [id number]) PT-Transfer Assessment Sit to and From Stand Sit to and from Stand Moderate Assistance 1 Person Assistance Use of Upper Extremities Equipment Transfer Assistive Device Gait Belt Front Wheeled Walker Transfers Transfer Destination Chair Transfer Technique Stand Step Pivot Transfer Ability Level of Assist Moderate Assistance 1 Person Assistance Comments Mobility Comments Narrow COREY, forward flexed posture; requires VC for posture Gait Assessment Gait Gait Assistance Required: Moderate Assistance 1 Person Assist Distance (Feet) (feet) 3 Assistive Devices Assistive Device Gait Belt Front Wheeled Walker Gait Deviations General Gait Pattern Antalgic Decreased Stride Length Decreased Feet Clearance Flexed Trunk Narrow Based Gait Step-to Gait Factors Limiting Gait Function Factors Limiting Gait Function Decreased Activity Tolerance Decreased Strength Limited Range of Motion Pain Poor Balance Poor Safety Awareness Comments Gait Comments Heels close to touching, but very little weight placed on LLE in standing initially. PT-Balance Assessment Sitting Balance and Reactions Static Sitting Balance Ability Fair Dynamic Sitting Balance Ability Fair Standing Balance and Reactions Static Standing Balance Ability Poor Dynamic Standing Balance Ability Poor Device Used FWW M5 PT-IP Objective Assessments Start: 11/02/17 13:26 Freq: NEEDED Status: Active Protocol: Document 11/02/17 13:26 AB (Rec: 11/02/17 13:42 AB [id number]) Orientation Orientation/Cognition Level of Alertness Alert Orientation Name Age Birthday Year Place Situation Safety Awareness Decreased Safety Awareness Gross Range of Motion Lower Extremity ROM Assessment Right Impaired Strength Lower Extremity Strength Assessment Bilaterally Impaired Comments Strength Comments h/o R hip surgery and currently just had L hip hemiarthroplasty RLE 3-/5 LLE 4-/5 M6 PT-IP Treatment Start: 11/02/17 13:26 Freq: NEEDED Status: Active Protocol: Document 11/05/17 11:16 RCC (Rec: 11/05/17 11:25 [facility] [id number]) Physical Therapy Treatment Exercises Exercises Ankle Pumps Gluteal Sets Quad Sets Education Education Provided Weight Bearing Status Post-Op Packet Safety M7 PT-IP Assessment and Plan Start: 11/02/17 13:26 Freq: NEEDED Status: Active Protocol: Document 11/05/17 11:16 RCC (Rec: 11/05/17 11:25 [facility] [id number]) PT Summary Assessment and Plan Summary Assessment Summary Pt able to ambulate forward and backward x3 ft each direction, but requires frequent verbal cuing for posture, sequencing, and manual assistance to prevent falling (pt had loss of balance twice this session requiring Mod A to prevent a fall). Pt is not safe to return home at this time, and would greatly benefit from SNF rehabilitation upon d/c. Frequency of Treatment Frequency Of Treatment Twice a Day Treatment Plan Other Recommendations and Next Treatment gait training, transfers, Focus review post-op exercises Recommendations To Nursing Amount of Assist Needed 2 Person Assist Mechanical Lift Discharge Recommendations PT Discharge Recommendations SNF Rehab
--- NOTE | 2017-11-05 14:15 | P.DS_ITS ---
History of Present Illness Chief complaint: GLF Narrative: 82-year-old male who fell yesterday evening while attending a balance class fractured his hip. He was a resident of [place] he was sent over here for evaluation found to have the fractured hip. He has been fairly healthy [place] has been relatively healthy in the past she does note that he has chronic balance problems due to previously fractured femur. Discharge Providers Date of admission: 10/31/17 21:59 Primary care physician: Luis Daniel Varghese MD Consults: 11/01/17 20:45 Consult to Discharge Planning Routine Comment: Consult to Physical Therapy Evaluate & Treat Comment: Physician Instructions: post op MATT protocol 11/02/17 12:07 Consult to Occupational Therapy Evaluate & Treat Comment: Physician Instructions: Evaluate and treat Discharge provider: Issa Partida MD Summary Discharge Diagnosis: One. Left subcapital femoral neck fracture status post surgical repair 2. History of asthma Hospital Course: Patient admitted to the hospital with the left femoral neck fracture had left hemiarthroplasty with unipolar done. He has improved and is slowly making improvements with therapy he will need retirement facility on going. The patient will be transferred to retirement today. Status at Discharge Overall status at discharge: patient is not back to baseline Time Spent with Patient Greater than 30 minutes Exam Vital Signs (past 8 hours): - 11/05/17 08:30 Temperature 98.4 F Pulse Rate 83 Respiratory Rate 18 Blood Pressure 125/68 H Pulse Oximetry 96 Oxygen Delivery Method Room Air Oxygen Flow Rate 0 Objective Labs Result Diagrams: 11/02/17 05:46 Discharge Plan Discharge Plan Patient Disposition: SNF Transfer to: [facility] Under care of provider: errol Transportation: Facility vehicle Consult as needed: Dental, Hearing, Mental health, Podiatry and Vision I certify the postop hospital retirement care is medically necessary on a continuing basis for any conditions for which he/ she received care during this hospitalization.: Yes The receiving facility has agreed to accept transfer and provide medical treatment.: Yes Discharge Health Status Multidrug resistant organism: No MDRO MDRO Verified by culture: No Precautions: [place] Provider Discharge Instructions Diet: Diet as Tolerated Liquid consistency: Normal/Thin [facility] Reason for rehabilitation: Post-operative therapy Discharge Data Primary Care Provider: Luis Daniel Varghese Attending Provider: Naomi Weeks Admit Date/Time: 10/31/17 21:59 [facility] Deep Vein Thrombosis/Pulmonary Embolism Present on Admission: No
--- NOTE | 2017-11-05 14:41 | PC.NURSE ---
Orders received for discharge to [facility]. Patient and ready and agreeable with plan of care. Report called to Keeley MAYES, plan for fiber picker at [phone].
[2017-11-05 14:46] VITALS: BP 136/60; PULSE 85; RESP 18; TEMP 36.7; O2SAT 96
== END 2017-11-05 15:20 | DRG 470 ==
LOC: ED 21:50 → AC 22:00
PROVIDERS: Orthopaedic Surgery; Admitting Provider Internal Medicine; Emergency Provider Emergency Medicine; Family Provider Family Medicine; PCP Family Medicine; Visit Provider Internal Medicine
PROC: 0SRS0JZ Replacement of Left Hip Joint, Femoral Surface with Synthetic Substitute, Open Approach (ICD-10-PCS; CPT 27125; principal; 2017-11-01 16:30)
DX: S72.012A Unspecified intracapsular fracture of left femur, initial encounter for closed fracture (principal); W18.30XA Fall on same level, unspecified, initial encounter; Y93.B9 Activity, other involving muscle strengthening exercises; I10 Essential (primary) hypertension; R06.6 Hiccough
CPT/HCPCS: 36415; 36592; 70450; 71045; 73502; 85014; 85018; 87086; 93005; 93010; 94760; 94762; 97110; 97116; 97162; 97165; 97530; 97535; 99283; C1776; J0171; J0330; J0690; J0780; J1100; J1170; J1650; J2270; J2405; J2704; J2765; J3010; J3360

== ENCOUNTER 2017-12-04 10:29 | Emergency (ER) | payer OTHER, SELFPAY ==
[2017-11-01 00:10] VITALS: BMI 27.9
[2017-12-04 10:49] VITALS: BP 135/76; PULSE 98; RESP 18; TEMP 36.9; O2SAT 97; BMI 29.8
--- NOTE | 2017-12-04 11:16 | DI.RAD.S_ITS ---
PROCEDURE: XR HIP W PEL IF DONE LT 2V INDICATIONS: atraumatic pain sp left hip fixation. TECHNIQUE: AP pelvis with lateral view(s) of the left hip(s). COMPARISON: [facility], CR, XR HIP W PEL IF DONE LT 2V, 11/01/2017, 21:09. [facility], CR, XR HIP W PEL IF DONE LT 2V, 10/31/2017, 19:48. FINDINGS: Bones: Remote fixation right hip is unchanged. No interval change in appearance of total left hip arthroplasty. Postoperative disruption of the left greater trochanter and chronic avulsion of the right greater trochanter superiorly appear unchanged. No acute fractures or dislocations. Pelvic ring appears intact. No suspicious bony lesions. Soft tissues: The visualized bowel gas pattern is normal. No suspicious soft tissue calcifications. IMPRESSION: 1. Status post left hip arthroplasty appears unchanged. No apparent loosening. Dictated by: Mark Anthony Turner M.D. on 12/04/2017 at 12:28 Approved by: Mark Anthony Turner M.D. on 12/04/2017 at 12:32
--- NOTE | 2017-12-04 11:16 | DI.RAD.S_ITS ---
PROCEDURE: XR TIBIA FIBULA RT 2V INDICATIONS: atraumatic pain sp left hip fixation. TECHNIQUE: 2 views of the tibia and fibula were acquired. COMPARISON: None. FINDINGS: Bones: No fractures or dislocations. No suspicious bony lesions. Mild periosteal thickening along the medial margin of the proximal one third of the tibial shaft. Soft tissues: No suspicious soft tissue calcifications or masses. IMPRESSION: No acute bony abnormality. Dictated by: Mark Anthony Turner M.D. on 12/04/2017 at 12:32 Approved by: Mark Anthony Turner M.D. on 12/04/2017 at 12:34
--- NOTE | 2017-12-04 11:46 | DI.US.S_ITS ---
PROCEDURE: US PERIPH VENOUS LOW EXTREM LT INDICATIONS: LEFT SERNA PAIN 3 WEEKS POST HIP REPLACEMENT TECHNIQUE: Real-time imaging, as well as color and pulse Doppler interrogation, were performed of the lower extremity deep veins from the inguinal ligament to the popliteal fossa. COMPARISON: None. FINDINGS: The deep veins are normally compressible, and free of intraluminal thrombus. Color and pulse Doppler demonstrate normal phasic intraluminal flow. There is normal augmentation response to distal compression maneuver. IMPRESSION: Negative for DVT Dictated by: Mark Anthony Turner M.D. on 12/04/2017 at 12:13 Approved by: Mark Anthony Turner M.D. on 12/04/2017 at 12:14
--- NOTE | 2017-12-04 12:50 | ED_ITS ---
HPI - Extremity Injury (Lower) General Chief Complaint: Extremity Injury, Lower Stated Complaint: left cabrera pain Time Seen by Provider: 12/04/17 10:43 History of Present Illness HPI Narrative: HPI 82-year-old male with prior bilateral hip fractures (left on 10/31/17) presents for evaluation of gradual onset chronic left anterior cabrera pain that began during rehab several weeks prior and is persistent. Patient reports that he was seen by his primary care physician several days ago during home visit and his PCP expressed concern that he may have a blood clot in his leg. Patient previously had an x-ray to evaluate his left tibia and fibula but he skip the appointment due to inconvenience. Patient unable to identify any inciting event for presenting to the emergency department today. Patient notes normal sensation in his left lower extremity. Patient reports that his postoperative course is otherwise been going well, denies shortness breath, chest pain, fevers , chills. M/S/F/SocHx notable for: please see HPI; remainder reviewed with patient and in chart. ROS: Negative constitutional, eye, cardiovascular, pulmonary, GI, , MSK, skin , neurologic, psychiatric, endocrine unless noted in the HPI. Exam Gen: Pleasant, non-toxic appearing, resting comfortably. HEENT: NC, AT, PEERL, EOMI. Resp: Clear to auscultation bilaterally, normal work of breathing, no accessory muscle usage. Card: Regular rate and rhythm with no murmurs, rubs, or gallops, extremities warm and well perfused. GI: Non-tender to palpation throughout all quadrants, no focal tenderness at McBurney's point, negative Haney's sign, non-distended, no rebound or guarding. : No suprapubic tenderness to palpation. MSK: left knee visually normal, nontender to palpation, entirety of left tibia and fibula without tenderness palpation, both calves of equal size bilaterally. No palpable abnormalities, normal warmth and color, muscle compartments soft. Left foot with 1+ pitting edema, 2+ DP pulse. Skin: Normal color with no visible lesions. Neuro: AO x 3, no facial asymmetry, vision and hearing WNL. Psych: Mood and affect appropriate. Labs / Imaging: US LLE: no DVT. XR L Hip and Pelvis: status post left hip arthroplasty appears unchanged. No apparent loosening. XR L Tib/Fib: no acute bony abnormality MDM Previous chart, nursing note, labs, imaging, and vitals reviewed. A: 82-year-old male with prior bilateral hip fractures (left on 10/31/17) presents for evaluation of gradual onset chronic left anterior cabrera pain that began during rehab several weeks prior and is persistent. Evaluation: CMS intact. No evidence of DVT, imaging without evidence of fracture or pathologic lesion. Suspect muscle strain secondary to PT as a cause of patient's symptoms. Patient discharged with PCP follow-up recommended. Impression: left anterior cabrera pain. (please reference below for remainder of encounter information) Related Data Home Medications Medication Instructions Recorded Confirmed aspirin [Aspirin Low Dose] 81 mg PO BEDTIME 09/13/17 12/04/17 aspirin, buffered 650 mg PO BID PRN 09/13/17 12/04/17 donepezil [Aricept] 10 mg PO BEDTIME 09/13/17 12/04/17 fluoxetine [Prozac] 10 mg PO DAILY 09/13/17 12/04/17 omeprazole 10 mg PO DAILY 09/13/17 12/04/17 tamsulosin [Flomax] 0.4 mg PO BEDTIME 09/13/17 12/04/17 Previous Rx's Medication Instructions Recorded albuterol sulfate 1 puff INHALATION Q4-6H PRN #6.7 09/13/17 gram oxycodone 5 mg PO Q4HR #30 tab 11/05/17 Allergies Allergy/AdvReac Type Severity Reaction Status Date / Time hydromorphone [From Dilaudid] AdvReac Intermediate Vomiting Verified 12/04/17 10 :54 PFSH Social History household members: spouse Smoking Status: Never smoker Exam Initial Vital Signs Initial Vital Signs: Vital Signs Temperature 98.4 F 12/04/17 10:49 Pulse Rate 98 H 12/04/17 10:49 Respiratory Rate 18 12/04/17 10:49 Blood Pressure 135/76 H 12/04/17 10:49 Pulse Oximetry 97 12/04/17 10:49 Course Orders Ordered: ED Orders 12/04/17 11:16 XR hip w pel if done LT 2V Stat XR tibia fibula LT 2V Stat 12/04/17 11:46 US periph venous low extrem lt Stat Vital Signs - 8 hr 12/04/17 10:49 Temperature 98.4 F Pulse Rate 98 H Respiratory Rate 18 Blood Pressure 135/76 H Pulse Oximetry 97 Discharge Plan Departure Prescriptions: No Action omeprazole 10 mg Capsule,Delayed Release(Dr/Ec) 10 mg PO DAILY RF: 0 tamsulosin [Flomax] 0.4 mg Capsule,Extended Release 24hr 0.4 mg PO BEDTIME RF: 0 fluoxetine [Prozac] 10 mg Capsule 10 mg PO DAILY RF: 0 donepezil [Aricept] 10 mg Tablet 10 mg PO BEDTIME RF: 0 aspirin [Aspirin Low Dose] 81 mg Tablet,Delayed Release (Dr/Ec) 81 mg PO BEDTIME RF: 0 aspirin, buffered 325 mg Tablet 650 mg PO BID PRN (Reason: Pain) RF: 0 albuterol sulfate 90 mcg/actuation HFA aerosol inhaler 1 puff INHALATION Q4-6H PRN (Reason: shortness of breath) Qty: 6.7 RF: 0 oxycodone 5 mg Tablet 5 mg PO Q4HR Qty: 30 RF: 0
[2017-12-04] MEDS: OXYCODONE/ACETAMINOPHEN 5/325 TABLET 1 TAB PO (13:08)
--- NOTE | 2017-12-04 13:08 | PC.NURSE ---
pts family member continues to come up to nursing station asking about wait times. Explained to pt's family member due to privacy of other pt's to please use call light in room. call light demonstrated to pt's family member. pts family member continues to come up to nursing station.
[2017-12-04 13:16] VITALS: BP 140/70; PULSE 80; RESP 20; TEMP 36.4; O2SAT 97
== END 2017-12-04 13:18 | disposition home or self-care (01) ==
PROVIDERS: Emergency Provider Emergency Medicine; Family Provider Family Medicine; PCP Family Medicine
DX: M79.605 Pain in left leg (principal)
CPT/HCPCS: 73502; 73590; 93971; 99282; 99284

== ENCOUNTER 2018-05-10 14:00 | Observation (INO) | payer OTHER, SELFPAY ==
[2017-11-01 00:10] VITALS: BMI 27.9
--- NOTE | 2018-05-10 | DI.RAD.S_ITS ---
PROCEDURE: XR CHEST 1V INDICATIONS: LEUKOCYTOSIS TECHNIQUE: One view of the chest was acquired. COMPARISON: [facility], CR, XR CHEST 1 VIEW, 05/02/2018, 12:35. FINDINGS: Surgical changes and devices: None. Lungs and pleura: No pleural effusions or pneumothorax. Lungs are clear. Mediastinum: Mediastinal contours appear normal. Heart size is normal. Bones and chest wall: No suspicious bony lesions. Overlying soft tissues appear unremarkable. IMPRESSION: No acute process. Dictated by: Nidia Cruz M.D. on 05/10/2018 at 19:50 Approved by: Nidia Cruz M.D. on 05/10/2018 at 19:50
[2018-05-10 14:26] VITALS: BP 149/67; PULSE 104; RESP 15; TEMP 36.9; O2SAT 96; BMI 27.8
--- NOTE | 2018-05-10 15:23 | DI.CT.S_ITS ---
PROCEDURE: CT PEL WO CON INDICATIONS: left hip pain s/p fall 05/02 with neg xray, can't walk on it TECHNIQUE: After the administration of oral contrast, 5 mm thick sections acquired from the iliac crests to the symphysis. 5 mm coronal and sagittal reformats were then performed. For radiation dose reduction, the following was used: automated exposure control, adjustment of mA and/or kV according to patient size. COMPARISON: [facility], CT, CT ABDOMEN PELVIS WITH CONTRAST, 05/02/2018, 14:40. [facility], CR, XR PELVIS WITH LATERAL HIP LEFT, 05/02/2018, 12:35. FINDINGS: Image quality: Excellent. Peritoneum and bowel: Bowel loops demonstrate normal wall thickness and caliber. No free fluid or air. Genitourinary: Bladder wall thickness is normal. Nodes and vessels: No iliac, pelvic, or inguinal adenopathy by size criteria. Iliac vessels demonstrate normal size. Bones: Patient is status post prior internal fixation of right proximal femoral shaft and prior left total hip arthroplasty. No gross hardware loosening or failure is seen. There is an acute oblique fracture involving midshaft of left inferior pubic ramus with slight displacement at fracture site. Possible subtle nondisplaced fracture involving left superior pubic ramus near acetabulum is also likely present. No other fracture is seen. 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 No intraosseous lesion is noted. 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 Miscellaneous: No inguinal hernias. IMPRESSION: 1. Acute slightly displaced oblique fracture involving midshaft of left inferior pubic ramus and possible nondisplaced fracture involving lateral aspect of left superior pubic ramus near acetabulum. 2. Prior left total hip arthroplasty and right proximal femoral shaft ORIF. No gross hardware complication. 3. No pelvic free fluid or free air. No evidence of solid organ injury within the pelvis. Findings were discussed with Dr. Ballesteros in the ER at 3:55 PM on 05/10/18. Dictated by: Andrea Moreau M.D. on 05/10/2018 at 15:50 Approved by: Andrea Moreau M.D. on 05/10/2018 at 15:58
--- NOTE | 2018-05-10 15:27 | ED.SKABFB ---
HPI - Skin/Abscess/Foreign Bdy General Chief complaint: Skin/Abscess/Foreign Body Stated complaint: weakness, Stage II Coccyx, bed bound, edema Time Seen by Provider: 05/10/18 14:59 Source: patient, family () and old records reviewed ([facility] record) Mode of arrival: wheelchair Limitations: no limitations History of Present Illness HPI narrative: This an 83-year-old male who comes to the emergency department multiple issues. Patient was at [facility] and was discharged home. The hospital 1 the patient to be in a intermediate facility but family disagreed and patient went home and then later realized that the patient's care required too much effort from the family to be successful. Patient had a fall on April 27 he presented to the hospital on May 02 for left hip pain, had an x-ray which was negative but he continues to have pain and difficulty with weight-bearing. He has also been feeling under the weather. He denies any fevers or chills, he denies any shortness of breath or chest pain, no abdominal pain. No new urinary symptoms although he has chronic urinary incontinence, he has had some constipation but has been having bowel movements. Him and his for concern is he has had a sacral decubitus developed while he was in the hospital. Going home and continues to worsen and not improved. Related Data Home Medications Medication Instructions Recorded Confirmed tamsulosin [Flomax] 0.4 mg PO BEDTIME 09/13/17 05/10/18 aspirin 162 mg PO QPM 05/10/18 05/10/18 calcium carb-mag ox-zinc sulf 1 tab PO QAM 05/10/18 05/10/18 cholecalciferol (vitamin D3) 2,000 unit PO QPM 05/10/18 05/10/18 [Vitamin D3] donepezil 15 mg PO QPM 05/10/18 05/10/18 epinephrine [EpiPen 2-Lorenzo] 0.3 ml IM PRN PRN 05/10/18 05/10/18 fluoxetine 5 mg PO DAILY 05/10/18 05/10/18 levofloxacin 500 mg PO DAILYX9 05/10/18 05/10/18 lorazepam 0.25 - 0.5 mg PO BID 05/10/18 05/10/18 meclizine 25 mg PO BID PRN 05/10/18 05/10/18 metronidazole 500 mg PO Q8H 05/10/18 05/10/18 multivitamin 1 tab PO DAILY 05/10/18 05/10/18 omega 2-tel-rgn-fish oil 1,200 mg PO DAILY 05/10/18 05/10/18 ranitidine HCl 75 mg PO BEDTIME 05/10/18 05/10/18 ranitidine HCl 150 mg PO QAM 05/10/18 05/10/18 Previous Rx's Medication Instructions Recorded albuterol sulfate 1 puff INHALATION Q4-6H PRN #6.7 09/13/17 gram Allergies Allergy/AdvReac Type Severity Reaction Status Date / Time hydromorphone [From Dilaudid] AdvReac Intermediate Vomiting Verified 05/10/18 14:29 Review of Systems Review of Systems All systems reviewed & are unremarkable except as noted in HPI and below Constitutional Denies chills, Denies fever(s), Denies lethargy and Reports weakness Cardiovascular Denies chest pain, Denies diaphoresis, Denies syncope, Reports edema (Bilateral leg), Denies irregular heart rhythm, Denies lightheadedness, Denies palpitations, Denies dyspnea, Denies dyspnea on exertion and Denies orthopnea Respiratory Denies cough, Denies excessive phlegm production, Denies dyspnea, Denies dyspnea on exertion and Denies wheezing Gastrointestinal Gastrointestinal: Denies abdominal pain, Denies change in bowel habits, Denies diarrhea, Denies nausea and Denies vomiting Genitourinary Denies dysuria, Denies flank pain, Denies urinary frequency and Reports urinary incontinence (Chronic) Musculoskeletal Reports back pain (Chronic) Integumentary/Breasts Reports skin ulcer (Sacral decubitus) Neurologic Denies syncope and Reports weakness Endocrine Denies palpitations Allergic/Immunologic Denies wheezing [facility] Medical History Fall (Acute) Hypertension (Acute) Right femoral fracture (Acute) Family History: Reviewed 05/10/18 by Kimber Wallis DO Social History household members: spouse Smoking Status: Never smoker alcohol intake: never Exam Narrative Exam Narrative: GEN: well nourished, well appearing elderly male, alert and oriented x 3, patient appears to be in mild distress. Patient is quite uncomfortable with rolling to evaluate sacral decubitus. HEENT: Atraumatic, pupils are equal round reactive to light, extraocular movements are intact, nares are clear. HEART: Regular rate and rhythm without murmur, clicks, rubs. pulses are equal in upper and lower extremities LUNGS:Lungs clear to auscultation, no wheezes, rales, crackles, chest moves symmetrically ABD:bowel sounds normal, soft, non-tende, patient has a sacral decubitus on the bilateral buttocks and gluteal crease, there is breakdown to the superficial skin with redness and some loss of tissue Um I am not able to visualize any subcutaneous tissue. There is no purulent drainage or foul odor. No guarding, rebound, rigidity, no masses noted, no hepatosplenomegaly :No CVA tenderness MSCL: Non-tender, no muscle atrophy, patient has tenderness over the right hip. And with movement of his right lower extremity. And when we rolled patient from to his right side. He has normal sensation through both legs, 2+ pulses bilaterally. He is but it swelling bilateral extremities. NEURO:CN 2-12 intact, sensation normal, reflexes 2/4 upper and lower extremities. finger nose finger test normal, heel cabrera test normal, romberg normal Initial Vital Signs Initial Vital Signs: Vital Signs Temperature 98.4 F 05/10/18 14:26 Pulse Rate 104 H 05/10/18 14:26 Respiratory Rate 15 05/10/18 14:26 Blood Pressure 149/67 H 05/10/18 14:26 Pulse Oximetry 96 05/10/18 14:26 Course Orders Ordered: ED Orders 05/10/18 15:23 CT pelvis wo con Stat 05/10/18 15:45 Complete Blood Count AUTO DIFF Stat Comprehensive Metabolic Panel Stat Lactate (Lactic Acid) Stat 05/10/18 16:58 Blood Culture Stat 05/10/18 17:17 Education, smoking cessation ONGOING 05/10/18 17:22 Consult to Discharge Planning Routine Consult to Occupational Therapy Evaluate & Treat Consult to Physical Therapy Evaluate & Treat Consult to Wetland Scientist Routine 05/10/18 18:05 Consult to Dietitian, Adult Routine Consult to Wetland Scientist Routine 05/10/18 18:25 Urinalysis and Microscopic Stat 05/10/18 18:43 Consult to Wound Care Routine 05/11/18 05:30 Complete Blood Count AUTO DIFF DAILY Comprehensive Metabolic Panel DAILY Magnesium DAILY Phosphorous DAILY 05/12/18 05:30 Complete Blood Count AUTO DIFF DAILY Comprehensive Metabolic Panel DAILY 05/13/18 05:30 Complete Blood Count AUTO DIFF DAILY Comprehensive Metabolic Panel DAILY 05/14/18 05:30 Complete Blood Count AUTO DIFF DAILY Comprehensive Metabolic Panel DAILY Acetaminophen (Tylenol) 650 mg PO Q6HR PRN PRN Reason: As Needed for Fever/Mild Pain Hydrocodone Bitart/Acetaminophen ([place] 5/325) 1 tab PO Q4HR PRN PRN Reason: Pain, Moderate (4-6) Al Hydrox/Mg Hydrox/Simethicone (Maalox Plus) 30 ml PO Q6HR PRN PRN Reason: Dyspepsia Albuterol (Ventolin Hfa) 1 puff INH Q4HR PRN PRN Reason: Shortness Of Breath Aspirin (Aspirin Ec) 162 mg PO QPM [facility] Bisacodyl (Dulcolax) 10 mg MT DAILY PRN PRN Reason: Constipation Calcium Carbonate (Tums) 1,000 mg PO Q4HR PRN PRN Reason: Dyspepsia Donepezil HCl (Aricept) 15 mg PO QPM [facility] Fish Oil (Fish Oil) 1,000 mg PO DAILY [facility] Ceftriaxone Sodium/Dextrose (Rocephin) 1 gm in 50 mls @ 100 mls/hr IV Q24H [facility] Lorazepam (Ativan) 0.5 mg PO BID [facility] Meclizine HCl (Antivert) 25 mg PO BID PRN PRN Reason: Vertigo Metronidazole (Metronidazole) 500 mg PO Q8H [facility] Multivitamins (Tab-A-Ivett) 1 tab PO DAILY [facility] Non-Formulary Medication (Fluoxetine [Fluoxetine]) 5 mg PO DAILY [facility] Ondansetron HCl (Zofran) 4 mg IV Q8HR PRN PRN Reason: Nausea And Vomiting Ranitidine HCl (Zantac) 75 mg PO BEDTIME [facility] Ranitidine HCl (Zantac) 150 mg PO DAILY [facility] Sodium Biphosphate/Sodium Phosphate (Fleet Enema) 1 each MT PRN PRN PRN Reason: Constipation Tamsulosin HCl (Flomax) 0.4 mg PO BEDTIME [facility] Vitamin D (Vitamin D3) 2,000 unit PO QPM [facility] Discontinued Medications Vancomycin HCl 1,250 mg/ (Sodium Chloride) 250 mls @ 250 mls/hr IV NOW ONE Stop: 05/10/18 16:41 Last Infusion: 05/10/18 18:19 Dose: 250 mls/hr Infusion: 05/10/18 17:46 Dose: 250 mls/hr Admin: 05/10/18 17:07 Dose: 250 mls/hr Non-Formulary Medication (Calcium Carb-Mag Ox-Zinc Sulf [Calcium Carb-Mag Ox-Zinc Sulf]) 1 tab PO DAILY KASH Oxycodone HCl (Percolone) 5 mg PO NOW ONE Stop: 05/10/18 15:24 Last Admin: 05/10/18 16:00 Dose: Oxycodone/Acetaminophen (Percocet 5/325) 1 tab PO NOW ONE Stop: 05/10/18 15:59 Last Admin: 05/10/18 15:30 Dose: 1 tab Pantoprazole Sodium (Protonix) 20 mg PO 0600 [facility] Vital Signs - 8 hr 05/10/18 14:26 05/10/18 18:00 Temperature 98.4 F 98.1 F Pulse Rate 104 H 81 Respiratory Rate 15 16 Blood Pressure 149/67 H 137/57 L Pulse Oximetry 96 96 MDM - Skin/Abscess/Foreign Bdy Lab Data Attestation: I reviewed the patient's lab results. Result diagrams: 05/10/18 15:45 05/10/18 15:45 Lab Results 05/10/18 05/10/18 05/10/18 Range/Units 15:45 15:45 15:45 WBC 16.7 H (4.5-11.0) X10^3/uL RBC 3.67 L (4.5-5.9) X10^6/uL Hgb 11.9 L (13.5-17.5) g/dL Hct 35.2 L (41-53) % MCV 95.9 (80-100) fL MCH 32.3 (26-34) PG MCHC 33.7 (30-36) % RDW 13.8 (11.6-14.8) % Plt Count 433 H (150-400) X10^3/uL Neut % (Auto) Not Reportable Lymph % (Auto) Not Reportable Tama % (Auto) Not Reportable Eos % (Auto) Not Reportable Baso % (Auto) Not Reportable Total Counted 100 Seg Neutrophils % 61.0 (38-70) % Band Neutrophils % 8.0 H (3-7) % Lymphocytes % (Manual) 23.0 L (25-45) % Atypical Lymphs % 1.0 H ( - 0) % Monocytes % (Manual) 6.0 (2-11) % Eosinophils % (Manual) 1.0 L (2-4) % Neutrophils # (Manual) 93864 H (6166-9975) /uL RBC Morphology Normal morphology Sodium 140 (137-145) mmol/L Potassium 3.6 (3.4-5.1) mmol/L Chloride 98 (98-107) mmol/L Carbon Dioxide 28 (22-32) mmol/L BUN 9 (9-20) mg/dL Creatinine 0.70 (0.66-1.25) mg/dL Estimated GFR > 60.0 (>60) mL/min BUN/Creatinine Ratio 12.9 (6-22) Glucose 95 (80-110) mg/dL Lactate 1.1 (0.7-2.1) mmol/L Calcium 8.6 (8.4-10.2) mg/dL Total Bilirubin 0.3 (0.2-1.3) mg/dL AST 28 (17-59) IU/L ALT 21 (21-72) IU/L Alkaline Phosphatase 113 (38-126) U/L Total Protein 6.6 (6.3-8.2) g/dL Albumin 3.4 L (3.5-5.0) g/dL Globulin 3.2 (1.7-4.1) g/dL Albumin/Globulin Ratio 1.1 (1.0-2.8) Urine Color Urine Appearance Urine pH (4.5-8.0) Ur Specific [place] (1.000-1.035) Urine Protein (Negative) Urine Glucose (UA) (Negative) g/dL Urine Ketones (NEGATIVE) Urine Occult Blood (Negative) Urine Nitrate (Negative) Urine Bilirubin (NEGATIVE) Urine Urobilinogen (0.2) E.U./dL Ur Leukocyte Esterase (NEGATIVE) Urine RBC (0-5/HPF) Urine WBC (0-5/HPF) Ur Squamous Epith Cells Urine Bacteria (None) Ur Culture Indicated? Micro UA Comment 05/10/ Range/Units 18:25 WBC (4.5-11.0) X10^3/uL RBC (4.5-5.9) X10^6/uL Hgb (13.5-17.5) g/dL Hct (41-53) % MCV (80-100) fL MCH (26-34) PG MCHC (30-36) % RDW (11.6-14.8) % Plt Count (150-400) X10^3/uL Neut % (Auto) Lymph % (Auto) [place] % (Auto) Eos % (Auto) Baso % (Auto) Total Counted Seg Neutrophils % (38-70) % Band Neutrophils % (3-7) % Lymphocytes % (Manual) (25-45) % Atypical Lymphs % ( - 0) % Monocytes % (Manual) (2-11) % Eosinophils % (Manual) (2-4) % Neutrophils # (Manual) (6203-5139) /uL RBC Morphology Sodium (137-145) mmol/L Potassium (3.4-5.1) mmol/L Chloride (98-107) mmol/L Carbon Dioxide (22-32) mmol/L BUN (9-20) mg/dL Creatinine (0.66-1.25) mg/dL Estimated GFR (>60) mL/min BUN/Creatinine Ratio (6-22) Glucose (80-110) mg/dL Lactate (0.7-2.1) mmol/L Calcium (8.4-10.2) mg/dL Total Bilirubin (0.2-1.3) mg/dL AST (17-59) IU/L ALT (21-72) IU/L Alkaline Phosphatase (38-126) U/L Total Protein (6.3-8.2) g/dL Albumin (3.5-5.0) g/dL Globulin (1.7-4.1) g/dL Albumin/Globulin Ratio (1.0-2.8) Urine Color Yellow Urine Appearance Clear Urine pH 7.0 (4.5-8.0) Ur Specific [place] 1.020 (1.000-1.035) Urine Protein Negative (Negative) Urine Glucose (UA) Negative (Negative) g/dL Urine Ketones Negative (NEGATIVE) Urine Occult Blood Negative (Negative) Urine Nitrate Negative (Negative) Urine Bilirubin Negative (NEGATIVE) Urine Urobilinogen 0.2 (0.2) E.U./dL Ur Leukocyte Esterase Negative (NEGATIVE) Urine RBC None seen (0-5/HPF) Urine WBC 0-1/hpf (0-5/HPF) Ur Squamous Epith Cells 0-1 /hpf Urine Bacteria None seen (None) Ur Culture Indicated? Cult not indicated Micro UA Comment Not Reportable Imaging Data CT, pelvis hip: Radiologist's impression: [address] [address] [address] Scan Report Signed Patient: Greg Arriola MR#: [id number] : 1935 Acct:[id number] Age/Sex: 83 / M Date of Service: 05/10/18 Loc: ED Accession Number: [id number] Procedure: CT pelvis wo con Ordering Provider: Arminda Ballesteros D.O. PROCEDURE: CT PEL WO CON INDICATIONS: left hip pain s/p fall 05/02 with neg xray, can't walk on it TECHNIQUE: After the administration of oral contrast, 5 mm thick sections acquired from the iliac crests to the symphysis. 5 mm coronal and sagittal reformats were then performed. For radiation dose reduction, the following was used: automated exposure control, adjustment of mA and/or kV according to patient size. COMPARISON: [facility], CT, CT ABDOMEN PELVIS WITH CONTRAST, 05/02/2018, 14:40. [facility], CR, XR PELVIS WITH LATERAL HIP LEFT, 05/02/2018, 12:35. FINDINGS: Image quality: Excellent. Peritoneum and bowel: Bowel loops demonstrate normal wall thickness and caliber. No free fluid or air. Genitourinary: Bladder wall thickness is normal. Nodes and vessels: No iliac, pelvic, or inguinal adenopathy by size criteria. Iliac vessels demonstrate normal size. Bones: Patient is status post prior internal fixation of right proximal femoral shaft and prior left total hip arthroplasty. No gross hardware loosening or failure is seen. There is an acute oblique fracture involving midshaft of left inferior pubic ramus with slight displacement at fracture site. Possible subtle nondisplaced fracture involving left superior pubic ramus near acetabulum is also likely present. No other fracture is seen. 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 No intraosseous lesion is noted. 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 Miscellaneous: No inguinal hernias. IMPRESSION: 1. Acute slightly displaced oblique fracture involving midshaft of left inferior pubic ramus and possible nondisplaced fracture involving lateral aspect of left superior pubic ramus near acetabulum. 2. Prior left total hip arthroplasty and right proximal femoral shaft ORIF. No gross hardware complication. 3. No pelvic free fluid or free air. No evidence of solid organ injury within the pelvis. Findings were discussed with Dr. Ballesteros in the ER at 3:55 PM on 05/10/18. Dictated by: Andrea Moreau M.D. on 05/10/2018 at 15:50 Approved by: Andrea Moreau M.D. on 05/10/2018 at 15:58 MDM Narrative Medical decision making narrative: Patient's left lower extremity pain was concerning as he has had almost 2 weeks of pain without any improvement he still not able to fully weight bear. CT was ordered as patient had x-ray was able to review the port from [facility] and was negative. CT did show inferior pubic rami fracture as well as a possible superior pubic rami fracture. This was discussed with Dr. Sears who recommends weight-bearing as tolerated and healing with time. Spoke with Dr. RAMIREZ who accepts patient has an elevated white count, lactate is negative blood cultures are pending. Patient was started on vancomycin. Concerning for cellulitis possibly secondary to a sacral decubitus is other cause. Patient does not have any other clear infectious sources at this time. Patient's wounds were dressed here in the department. Discharge Plan Departure Patient Disposition: Admitted As Inpatient Clinical Impression: Closed fracture of pubic ramus, Decubitus ulcer of sacral area, Cellulitis of sacral region Discharge Date/Time: 05/10/18 17:47 Interventions: ED Discharge Assessment Last Done: 05/10/18 17:44 Admit Date/Time: 05/10/18 17:06 Admit Provider: Kimber Wallis
[2018-05-10] MEDS: OXYCODONE/ACETAMINOPHEN 5/325 TABLET 1 TAB PO (15:30)
[2018-05-10 15:56] LABS: Hematocrit 35.2 % (41-53); Hemoglobin 11.9 g/dL (13.5-17.5); Mean Corpuscular HGB Conc 33.7 % (30-36); Mean Corpuscular Hemoglobin 32.3 PG (26-34); Mean Corpuscular Volume 95.9 fL (80-100); Platelet Count 433 X10^3/uL (150-400); Red Blood Cell Count 3.67 X10^6/uL (4.5-5.9); Red Cell Distribution Width 13.8 % (11.6-14.8); White Blood Cell Count 16.7 X10^3/uL (4.5-11.0)
[2018-05-10 15:58] LABS: Add Manual Diff / Slide Review YES
--- NOTE | 2018-05-10 16:04 | ED_ITS ---
HPI - Skin/Abscess/Foreign Bdy General Chief complaint: Skin/Abscess/Foreign Body Stated complaint: weakness, Stage II Coccyx, bed bound, edema Time Seen by Provider: 05/10/18 14:59 Source: patient, family () and old records reviewed ([facility] record) Mode of arrival: wheelchair Limitations: no limitations History of Present Illness HPI narrative: This an 83-year-old male who comes to the emergency department multiple issues. Patient was at [facility] and was discharged home. The hospital 1 the patient to be in a jail facility but family disagreed and patient went home and then later realized that the patient' s care required too much effort from the family to be successful. Patient had a fall on April 27 he presented to the hospital on May 02 for left hip pain, had an x-ray which was negative but he continues to have pain and difficulty with weight-bearing. He has also been feeling under the weather. He denies any fevers or chills, he denies any shortness of breath or chest pain , no abdominal pain. No new urinary symptoms although he has chronic urinary incontinence, he has had some constipation but has been having bowel movements. Him and his for concern is he has had a sacral decubitus developed while he was in the hospital. Going home and continues to worsen and not improved. Related Data Home Medications Medication Instructions Recorded Confirmed tamsulosin [Flomax] 0.4 mg PO BEDTIME 09/13/17 05/10/18 aspirin 162 mg PO QPM 05/10/18 05/10/18 calcium carb-mag ox-zinc sulf 1 tab PO QAM 05/10/18 05/10/18 cholecalciferol (vitamin D3) 2,000 unit PO QPM 05/10/18 05/10/18 [Vitamin D3] donepezil 15 mg PO QPM 05/10/18 05/10/18 epinephrine [EpiPen 2-Lorenzo] 0.3 ml IM PRN PRN 05/10/18 05/10/18 fluoxetine 5 mg PO DAILY 05/10/18 05/10/18 levofloxacin 500 mg PO DAILYX9 05/10/18 05/10/18 lorazepam 0.25 - 0.5 mg PO BID 05/10/18 05/10/18 meclizine 25 mg PO BID PRN 05/10/18 05/10/18 metronidazole 500 mg PO Q8H 05/10/18 05/10/18 multivitamin 1 tab PO DAILY 05/10/18 05/10/18 omega 4-vmo-hoq-fish oil 1,200 mg PO DAILY 05/10/18 05/10/18 ranitidine HCl 75 mg PO BEDTIME 05/10/18 05/10/18 ranitidine HCl 150 mg PO QAM 05/10/18 05/10/18 Previous Rx's Medication Instructions Recorded albuterol sulfate 1 puff INHALATION Q4-6H PRN #6.7 09/13/17 gram Allergies Allergy/AdvReac Type Severity Reaction Status Date / Time hydromorphone [From Dilaudid] AdvReac Intermediate Vomiting Verified 05/10/18 14 :29 Review of Systems Review of Systems All systems reviewed & are unremarkable except as noted in HPI and below Constitutional Denies chills, Denies fever(s), Denies lethargy and Reports weakness Cardiovascular Denies chest pain, Denies diaphoresis, Denies syncope, Reports edema (Bilateral leg), Denies irregular heart rhythm, Denies lightheadedness, Denies palpitations , Denies dyspnea, Denies dyspnea on exertion and Denies orthopnea Respiratory Denies cough, Denies excessive phlegm production, Denies dyspnea, Denies dyspnea on exertion and Denies wheezing Gastrointestinal Gastrointestinal: Denies abdominal pain, Denies change in bowel habits, Denies diarrhea, Denies nausea and Denies vomiting Genitourinary Denies dysuria, Denies flank pain, Denies urinary frequency and Reports urinary incontinence (Chronic) Musculoskeletal Reports back pain (Chronic) Integumentary/Breasts Reports skin ulcer (Sacral decubitus) Neurologic Denies syncope and Reports weakness Endocrine Denies palpitations Allergic/Immunologic Denies wheezing [facility] Medical History Fall (Acute) Hypertension (Acute) Right femoral fracture (Acute) Family History: Reviewed 05/10/18 by Kimber Wallis DO Social History household members: spouse Smoking Status: Never smoker alcohol intake: never Exam Narrative Exam Narrative: GEN: well nourished, well appearing elderly male, alert and oriented x 3, patient appears to be in mild distress. Patient is quite uncomfortable with rolling to evaluate sacral decubitus. HEENT: Atraumatic, pupils are equal round reactive to light, extraocular movements are intact, nares are clear. HEART: Regular rate and rhythm without murmur, clicks, rubs. pulses are equal in upper and lower extremities LUNGS:Lungs clear to auscultation, no wheezes, rales, crackles, chest moves symmetrically ABD:bowel sounds normal, soft, non-tende, patient has a sacral decubitus on the bilateral buttocks and gluteal crease, there is breakdown to the superficial skin with redness and some loss of tissue Um I am not able to visualize any subcutaneous tissue. There is no purulent drainage or foul odor. No guarding, rebound, rigidity, no masses noted, no hepatosplenomegaly :No CVA tenderness MSCL: Non-tender, no muscle atrophy, patient has tenderness over the right hip. And with movement of his right lower extremity. And when we rolled patient from to his right side. He has normal sensation through both legs, 2+ pulses bilaterally. He is but it swelling bilateral extremities. NEURO:CN 2-12 intact, sensation normal, reflexes 2/4 upper and lower extremities. finger nose finger test normal, heel cabrera test normal, romberg normal Initial Vital Signs Initial Vital Signs: Vital Signs Temperature 98.4 F 05/10/18 14:26 Pulse Rate 104 H 05/10/18 14:26 Respiratory Rate 15 05/10/18 14:26 Blood Pressure 149/67 H 05/10/18 14:26 Pulse Oximetry 96 05/10/18 14:26 Course Orders Ordered: ED Orders 05/10/18 15:23 CT pelvis wo con Stat 05/10/18 15:45 Complete Blood Count AUTO DIFF Stat Comprehensive Metabolic Panel Stat Lactate (Lactic Acid) Stat 05/10/18 16:58 Blood Culture Stat 05/10/18 17:17 Education, smoking cessation ONGOING 05/10/18 17:22 Consult to Discharge Planning Routine Consult to Occupational Therapy Evaluate & Treat Consult to Physical Therapy Evaluate & Treat Consult to Milling/Polishing Operator Routine 05/10/18 18:05 Consult to Dietitian, Adult Routine Consult to Milling/Polishing Operator Routine 05/10/18 18:25 Urinalysis and Microscopic Stat 05/10/18 18:43 Consult to Wound Care Routine 05/11/18 05:30 Complete Blood Count AUTO DIFF DAILY Comprehensive Metabolic Panel DAILY Magnesium DAILY Phosphorous DAILY 05/12/18 05:30 Complete Blood Count AUTO DIFF DAILY Comprehensive Metabolic Panel DAILY 05/13/18 05:30 Complete Blood Count AUTO DIFF DAILY Comprehensive Metabolic Panel DAILY 05/14/18 05:30 Complete Blood Count AUTO DIFF DAILY Comprehensive Metabolic Panel DAILY Acetaminophen (Tylenol) 650 mg PO Q6HR PRN PRN Reason: As Needed for Fever/Mild Pain Hydrocodone Bitart/Acetaminophen (Dairy 5/325) 1 tab PO Q4HR PRN PRN Reason: Pain, Moderate (4-6) Al Hydrox/Mg Hydrox/Simethicone (Maalox Plus) 30 ml PO Q6HR PRN PRN Reason: Dyspepsia Albuterol (Ventolin Hfa) 1 puff INH Q4HR PRN PRN Reason: Shortness Of Breath Aspirin (Aspirin Ec) 162 mg PO QPM [facility] Bisacodyl (Dulcolax) 10 mg TN DAILY PRN PRN Reason: Constipation Calcium Carbonate (Tums) 1,000 mg PO Q4HR PRN PRN Reason: Dyspepsia Donepezil HCl (Aricept) 15 mg PO QPM [facility] Fish Oil (Fish Oil) 1,000 mg PO DAILY [facility] Ceftriaxone Sodium/Dextrose (Rocephin) 1 gm in 50 mls @ 100 mls/hr IV Q24H [facility] Lorazepam (Ativan) 0.5 mg PO BID [facility] Meclizine HCl (Antivert) 25 mg PO BID PRN PRN Reason: Vertigo Metronidazole (Metronidazole) 500 mg PO Q8H [facility] Multivitamins (Tab-A-Ivett) 1 tab PO DAILY [facility] Non-Formulary Medication (Fluoxetine [Fluoxetine]) 5 mg PO DAILY [facility] Ondansetron HCl (Zofran) 4 mg IV Q8HR PRN PRN Reason: Nausea And Vomiting Ranitidine HCl (Zantac) 75 mg PO BEDTIME [facility] Ranitidine HCl (Zantac) 150 mg PO DAILY [facility] Sodium Biphosphate/Sodium Phosphate (Fleet Enema) 1 each TN PRN PRN PRN Reason: Constipation Tamsulosin HCl (Flomax) 0.4 mg PO BEDTIME [facility] Vitamin D (Vitamin D3) 2,000 unit PO QPM [facility] Discontinued Medications Vancomycin HCl 1,250 mg/ (Sodium Chloride) 250 mls @ 250 mls/hr IV NOW ONE Stop: 05/10/18 16:41 Last Infusion: 05/10/18 18:19 Dose: 250 mls/hr Infusion: 05/10/18 17:46 Dose: 250 mls/hr Admin: 05/10/18 17:07 Dose: 250 mls/hr Non-Formulary Medication (Calcium Carb-Mag Ox-Zinc Sulf [Calcium Carb-Mag Ox- Zinc Sulf]) 1 tab PO DAILY [facility] Oxycodone HCl (Percolone) 5 mg PO NOW ONE Stop: 05/10/18 15:24 Last Admin: 05/10/18 16:00 Dose: Oxycodone/Acetaminophen (Percocet 5/325) 1 tab PO NOW ONE Stop: 05/10/18 15:59 Last Admin: 05/10/18 15:30 Dose: 1 tab Pantoprazole Sodium (Protonix) 20 mg PO 0600 [facility] Vital Signs - 8 hr 05/10/18 14:26 05/10/18 18:00 Temperature 98.4 F 98.1 F Pulse Rate 104 H 81 Respiratory Rate 15 16 Blood Pressure 149/67 H 137/57 L Pulse Oximetry 96 96 MDM - Skin/Abscess/Foreign Bdy Lab Data Attestation: I reviewed the patient's lab results. Result diagrams: 05/10/18 15:45 05/10/18 15:45 Lab Results 05/10/18 05/10/18 05/10/18 Range/Units 15:45 15:45 15:45 WBC 16.7 H (4.5-11.0) X10^3/uL RBC 3.67 L (4.5-5.9) X10^6/uL Hgb 11.9 L (13.5-17.5) g/dL Hct 35.2 L (41-53) % MCV 95.9 (80-100) fL MCH 32.3 (26-34) PG MCHC 33.7 (30-36) % RDW 13.8 (11.6-14.8) % Plt Count 433 H (150-400) X10^3/uL Neut % (Auto) Not Reportable Lymph % (Auto) Not Reportable [place] % (Auto) Not Reportable Eos % (Auto) Not Reportable Baso % (Auto) Not Reportable Total Counted 100 Seg Neutrophils % 61.0 (38-70) % Band Neutrophils % 8.0 H (3-7) % Lymphocytes % (Manual) 23.0 L (25-45) % Atypical Lymphs % 1.0 H ( - 0) % Monocytes % (Manual) 6.0 (2-11) % Eosinophils % (Manual) 1.0 L (2-4) % Neutrophils # (Manual) 96695 H (1370-6055) /uL RBC Morphology Normal morphology Sodium 140 (137-145) mmol/L Potassium 3.6 (3.4-5.1) mmol/L Chloride 98 (98-107) mmol/L Carbon Dioxide 28 (22-32) mmol/L BUN 9 (9-20) mg/dL Creatinine 0.70 (0.66-1.25) mg/dL Estimated GFR > 60.0 (>60) mL/min BUN/Creatinine Ratio 12.9 (6-22) Glucose 95 (80-110) mg/dL Lactate 1.1 (0.7-2.1) mmol/L Calcium 8.6 (8.4-10.2) mg/dL Total Bilirubin 0.3 (0.2-1.3) mg/dL AST 28 (17-59) IU/L ALT 21 (21-72) IU/L Alkaline Phosphatase 113 (38-126) U/L Total Protein 6.6 (6.3-8.2) g/dL Albumin 3.4 L (3.5-5.0) g/dL Globulin 3.2 (1.7-4.1) g/dL Albumin/Globulin Ratio 1.1 (1.0-2.8) Urine Color Urine Appearance Urine pH (4.5-8.0) Ur Specific [place] (1.000-1.035) Urine Protein (Negative) Urine Glucose (UA) (Negative) g/dL Urine Ketones (NEGATIVE) Urine Occult Blood (Negative) Urine Nitrate (Negative) Urine Bilirubin (NEGATIVE) Urine Urobilinogen (0.2) E.U./dL Ur Leukocyte Esterase (NEGATIVE) Urine RBC (0-5/HPF) Urine WBC (0-5/HPF) Ur Squamous Epith Cells Urine Bacteria (None) Ur Culture Indicated? Micro UA Comment 05/10/ Range/Units 18:25 WBC (4.5-11.0) X10^3/uL RBC (4.5-5.9) X10^6/uL Hgb (13.5-17.5) g/dL Hct (41-53) % MCV (80-100) fL MCH (26-34) PG MCHC (30-36) % RDW (11.6-14.8) % Plt Count (150-400) X10^3/uL Neut % (Auto) Lymph % (Auto) [place] % (Auto) Eos % (Auto) Baso % (Auto) Total Counted Seg Neutrophils % (38-70) % Band Neutrophils % (3-7) % Lymphocytes % (Manual) (25-45) % Atypical Lymphs % ( - 0) % Monocytes % (Manual) (2-11) % Eosinophils % (Manual) (2-4) % Neutrophils # (Manual) (7852-6210) /uL RBC Morphology Sodium (137-145) mmol/L Potassium (3.4-5.1) mmol/L Chloride (98-107) mmol/L Carbon Dioxide (22-32) mmol/L BUN (9-20) mg/dL Creatinine (0.66-1.25) mg/dL Estimated GFR (>60) mL/min BUN/Creatinine Ratio (6-22) Glucose (80-110) mg/dL Lactate (0.7-2.1) mmol/L Calcium (8.4-10.2) mg/dL Total Bilirubin (0.2-1.3) mg/dL AST (17-59) IU/L ALT (21-72) IU/L Alkaline Phosphatase (38-126) U/L Total Protein (6.3-8.2) g/dL Albumin (3.5-5.0) g/dL Globulin (1.7-4.1) g/dL Albumin/Globulin Ratio (1.0-2.8) Urine Color Yellow Urine Appearance Clear Urine pH 7.0 (4.5-8.0) Ur Specific [place] 1.020 (1.000-1.035) Urine Protein Negative (Negative) Urine Glucose (UA) Negative (Negative) g/dL Urine Ketones Negative (NEGATIVE) Urine Occult Blood Negative (Negative) Urine Nitrate Negative (Negative) Urine Bilirubin Negative (NEGATIVE) Urine Urobilinogen 0.2 (0.2) E.U./dL Ur Leukocyte Esterase Negative (NEGATIVE) Urine RBC None seen (0-5/HPF) Urine WBC 0-1/hpf (0-5/HPF) Ur Squamous Epith Cells 0-1 /hpf Urine Bacteria None seen (None) Ur Culture Indicated? Cult not indicated Micro UA Comment Not Reportable Imaging Data CT, pelvis hip: Radiologist's impression: [address] [address] [address] Scan Report Signed Patient: Greg Arriola MR#: [id number] : 1935 Acct:[id number] Age/Sex: 83 / M Date of Service: 05/10/18 Loc: ED Accession Number: [id number] Procedure: CT pelvis wo con Ordering Provider: Arminda Ballesteros D.O. PROCEDURE: CT PEL WO CON INDICATIONS: left hip pain s/p fall 05/02 with neg xray, can't walk on it TECHNIQUE: After the administration of oral contrast, 5 mm thick sections acquired from the iliac crests to the symphysis. 5 mm coronal and sagittal reformats were then performed. For radiation dose reduction, the following was used: automated exposure control, adjustment of mA and/or kV according to patient size. COMPARISON: [facility], CT, CT ABDOMEN PELVIS WITH CONTRAST, 2017, 14:40. [facility], CR, XR PELVIS WITH LATERAL HIP LEFT, 05/02/2018 , 12:35. FINDINGS: Image quality: Excellent. Peritoneum and bowel: Bowel loops demonstrate normal wall thickness and caliber. No free fluid or air. Genitourinary: Bladder wall thickness is normal. Nodes and vessels: No iliac, pelvic, or inguinal adenopathy by size criteria. Iliac vessels demonstrate normal size. Bones: Patient is status post prior internal fixation of right proximal femoral shaft and prior left total hip arthroplasty. No gross hardware loosening or failure is seen. There is an acute oblique fracture involving midshaft of left inferior pubic ramus with slight displacement at fracture site. Possible subtle nondisplaced fracture involving left superior pubic ramus near acetabulum is also likely present. No other fracture is seen. 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 No intraosseous lesion is noted. 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 Miscellaneous: No inguinal hernias. IMPRESSION: 1. Acute slightly displaced oblique fracture involving midshaft of left inferior pubic ramus and possible nondisplaced fracture involving lateral aspect of left superior pubic ramus near acetabulum. 2. Prior left total hip arthroplasty and right proximal femoral shaft ORIF. No gross hardware complication. 3. No pelvic free fluid or free air. No evidence of solid organ injury within the pelvis. Findings were discussed with Dr. Ballesteros in the ER at 3:55 PM on 05/10/18. Dictated by: Andrea Moreau M.D. on 05/10/2018 at 15:50 Approved by: Andrea Moreau M.D. on 05/10/2018 at 15:58 MDM Narrative Medical decision making narrative: Patient's left lower extremity pain was concerning as he has had almost 2 weeks of pain without any improvement he still not able to fully weight bear. CT was ordered as patient had x-ray was able to review the port from [facility] and was negative. CT did show inferior pubic rami fracture as well as a possible superior pubic rami fracture. This was discussed with Dr. Sears who recommends weight-bearing as tolerated and healing with time. Spoke with Dr. RAMIREZ who accepts patient has an elevated white count, lactate is negative blood cultures are pending. Patient was started on vancomycin. Concerning for cellulitis possibly secondary to a sacral decubitus is other cause. Patient does not have any other clear infectious sources at this time. Patient's wounds were dressed here in the department. Discharge Plan Departure Patient Disposition: Admitted As Inpatient Clinical Impression: Closed fracture of pubic ramus, Decubitus ulcer of sacral area, Cellulitis of sacral region Discharge Date/Time: 05/10/18 17:47 Interventions: ED Discharge Assessment Last Done: 05/10/18 17:44 Admit Date/Time: 05/10/18 17:06 Admit Provider: Kimber Wallis
[2018-05-10 16:06] LABS: Neutrophils Absolute Manual 11523 /uL (3000-5900); RBC Morphology Normal Morphology; Total Cells Counted 100
[2018-05-10 16:07] LABS: Alanine Aminotransferase 21 IU/L (21-72); Albumin 3.4 g/dL (3.5-5.0); Albumin Globulin Ratio 1.1 (1.0-2.8); Alkaline Phosphatase 113 U/L (38-126); Aspartate Aminotransferase 28 IU/L (17-59); BUN Creatinine Ratio 12.9 (6-22); Bilirubin Total 0.3 mg/dL (0.2-1.3); Blood Urea Nitrogen 9 mg/dL (9-20); Calcium 8.6 mg/dL (8.4-10.2); Carbon Dioxide 28 mmol/L (22-32); Chloride 98 mmol/L (98-107); Estimated Glomerular Filt Rate > 60.0 mL/min (>60); Globulin 3.2 g/dL (1.7-4.1); Glucose 95 mg/dL (80-110); HEMOLYSIS < 15 (0-50); Potassium 3.6 mmol/L (3.4-5.1); Sodium 140 mmol/L (137-145); Total Protein 6.6 g/dL (6.3-8.2)
[2018-05-10 16:08] LABS: Lactate (Lactic Acid) 1.1 mmol/L (0.7-2.1)
[2018-05-10] MEDS: VANCOMYCIN 1,250 MG in SODIUM CHLORIDE 0.9% 250 ML IV (17:07)
--- NOTE | 2018-05-10 17:33 | PC.NURSE ---
Patient incontinent of urine. Brief double lined and soaking wet. Patients scrotum, groin and buttocks bright red and tender. Stage two coccyx bed sore present. Significant billy care provided, protective barrier cream applied to scrotum and coccyx.
[2018-05-10 17:58] VITALS: BMI 28.3
[2018-05-10 18:00] VITALS: BP 137/57; PULSE 81; RESP 16; TEMP 36.7; O2SAT 96
--- NOTE | 2018-05-10 18:10 | PC.NURSE ---
Pt alert/oriented, denies pain. IV abx infusing w/o complications. Oriented to room/call light. Spouse not present for admission. Positioned to right side for comfort. Reports initial fall in October 2017 and unable to walk since then.
--- NOTE | 2018-05-10 18:31 | PM.HP.1 ---
History of Present Illness Date Patient Seen: 05/10/18 Time Patient Seen: 18:31 Chief complaint: weakness, Stage II Coccyx, bed bound, edema Narrative: THIS IS A 83-YEAR-OLD MALE WHICH WAS RECENTLY IN THE HOSPITAL IN OCTOBER AFTER A HIP FRACTURE. HE WAS SEEN BY ORTHOPEDIC SURGERY DURING THAT STAY, HE WAS TAKEN TO THE OR AND HIS HIP FRACTURE WAS REPAIRED. AT THAT TIME, HE DID NOT WANT TO GO TO A CARE HOME FACILITY. HE HAS BEEN IN HIS USUAL STATE OF HEALTH. HOWEVER TODAY HE STATED THAT HE WAS TRYING TO PUT UP AN OBJECT IN HIS KITCHEN. HE STOOD UP OUT OF HIS WHEELCHAIR WHICH SHE HAS BEEN USING SINCE OCTOBER AND FELL. HE HAS A NONDISPLACED PUBIC FRACTURE. HE ALSO HAD A SIGNIFICANTLY ELEVATED WHITE BLOOD CELL COUNT HE REPORTED SOME PAIN ON THE HIP AND PELVIC AREA. HE DENIED ANY CHEST PAIN OR SHORTNESS OF BREATH. HE DENIES SYNCOPAL OR PRESYNCOPAL EPISODE. HE DENIED NAUSEA AND VOMITING. NO BLURRY VISION. NO MIGRAINE OR HEADACHES. NO DIARRHEA OR CONSTIPATION. HE REPORTED SOME SWELLING TO THE LOWER EXTREMITIES. HE HAD NO OTHER COMPLAINTS AT THIS TIME REVIEW OF SYSTEM Patient History Medical History Fall (Acute) Hypertension (Acute) Right femoral fracture (Acute) Family & Social History Family History: Reviewed 05/10/18 by Kimber Wallis DO Social History: household members spouse Prior Living Arrangements House Safety & Behavioral: Feels Safe in Current Yes Environment Been Physically Hurt or No Threatened By a Person Suicidal Ideation Description None Tobacco & Substance use: Smoking Status Never smoker alcohol intake never alcohol intake frequency 0-2 drinks per day Substance Use Type does not use Meds Home Medications Medication Instructions Recorded Confirmed Type albuterol sulfate 1 puff INHALATION Q4-6H PRN #6.7 09/13/17 05/10/18 Rx gram tamsulosin [Flomax] 0.4 mg PO BEDTIME 09/13/17 05/10/18 History aspirin 162 mg PO QPM 05/10/18 05/10/18 History calcium carb-mag ox-zinc sulf 1 tab PO QAM 05/10/18 05/10/18 History cholecalciferol (vitamin D3) 2,000 unit PO QPM 05/10/18 05/10/18 History [Vitamin D3] donepezil 15 mg PO QPM 05/10/18 05/10/18 History epinephrine [EpiPen 2-Lorenzo] 0.3 ml IM PRN PRN 05/10/18 05/10/18 History fluoxetine 5 mg PO DAILY 05/10/18 05/10/18 History levofloxacin 500 mg PO DAILYX9 05/10/18 05/10/18 History lorazepam 0.25 - 0.5 mg PO BID 05/10/18 05/10/18 History meclizine 25 mg PO BID PRN 05/10/18 05/10/18 History metronidazole 500 mg PO Q8H 05/10/18 05/10/18 History multivitamin 1 tab PO DAILY 05/10/18 05/10/18 History omega 1-xnk-etu-fish oil 1,200 mg PO DAILY 05/10/18 05/10/18 History ranitidine HCl 75 mg PO BEDTIME 05/10/18 05/10/18 History ranitidine HCl 150 mg PO QAM 05/10/18 05/10/18 History Allergies Allergy/AdvReac Type Severity Reaction Status Date / Time hydromorphone [From Dilaudid] AdvReac Intermediate Vomiting Verified 05/10/18 14:29 Review of Systems Review of Systems All systems reviewed & are unremarkable except as noted in HPI and below Exam Vital Signs (past 8 hours): - 05/10/18 14:26 05/10/18 18:00 Temperature 98.4 F 98.1 F Pulse Rate 104 H 81 Respiratory Rate 15 16 Blood Pressure 149/67 H 137/57 L Pulse Oximetry 96 96 Oxygen Delivery Method Room Air Oxygen Flow Rate 0 Narrative Exam Narrative: NO ACUTE DISTRESS. PATIENT IS ALERT ORIENTED X3. VITAL SIGNS STABLE HEAD ATRAUMATIC NORMOCEPHALIC NECK : SUPPLE WITHOUT ADENOPATHY NO CAROTID BRUITS EYE: EOMI, PERRLA, NORMAL CONJUNCTIVA; NO JAUNDICE CHEST: REGULAR RATE. NO RUBS. PMI IS NON DISPLACED. ; NORMAL S1-S2 PULMONARY: DECREASED BS OVER THE BASES. BIBASILAR CRACKLES NOTED; NO INCREASED DULLNESS TO PERCUSSION; NO WHEEZING ABDOMEN: SOFT. NONTENDER. NONDISTENDED. BOWEL SOUNDS ARE PRESENT IN ALL 4 QUADRANTS. NO MASS. EXTREMITIES: 3+ EDEMA.. NO CYANOSIS OR CLUBBING NOTED. NEURO: CRANIAL NERVES 2-12 GROSSLY INTACT. NO FOCAL NEUROLOGICAL DEFICIT NOTED. MSK: NORMAL RANGE OF MOTION FOR AGE. NO JOINT EFFUSION. SKIN: NORMAL FOR ETHNICITY; NO ECCHYMOSIS. NO LESION. FAIR TURGOR.; NO RASHES : NORMAL EXTERNAL GENITALIA. PSYCH : APPROPRIATE MOOD AND AFFECT. ALERT AWAKE ORIENTED X3 Objective Labs Result Diagrams: 05/10/18 15:45 05/10/18 15:45 Labs: Laboratory Results - last 24 hr 05/10/18 05/10/18 05/10/18 15:45 15:45 15:45 WBC 16.7 H RBC 3.67 L Hgb 11.9 L Hct 35.2 L MCV 95.9 MCH 32.3 MCHC 33.7 RDW 13.8 Plt Count 433 H Neut % (Auto) Not Reportable Lymph % (Auto) Not Reportable [place] % (Auto) Not Reportable Eos % (Auto) Not Reportable Baso % (Auto) Not Reportable Total Counted 100 Seg Neutrophils % 61.0 Band Neutrophils % 8.0 H Lymphocytes % (Manual) 23.0 L Atypical Lymphs % 1.0 H Monocytes % (Manual) 6.0 Eosinophils % (Manual) 1.0 L Neutrophils # (Manual) 40377 H RBC Morphology Normal morphology Sodium 140 Potassium 3.6 Chloride 98 Carbon Dioxide 28 BUN 9 Creatinine 0.70 Estimated GFR > 60.0 BUN/Creatinine Ratio 12.9 Glucose 95 Lactate 1.1 Calcium 8.6 Total Bilirubin 0.3 AST 28 ALT 21 Alkaline Phosphatase 113 Total Protein 6.6 Albumin 3.4 L Globulin 3.2 Albumin/Globulin Ratio 1.1 Assessment & Plan Plan: Assessment/Plan Narrative: IMPRESSION AND PLAN STATUS POST FALL. THIS APPEARS TO BE DUE TO PHYSICAL DECONDITIONING. FALL PRECAUTION WILL BE INSTITUTED WHILE IN HOUSE; PHYSICAL THERAPY/ OCCUPATIONAL THERAPY ORDERED NONDISPLACED PUBIC RAMUS FRACTURE; THIS IS A NONSURGICAL FRACTURE. THIS WILL BE TREATED CONSERVATIVELY. PT / OT. PAIN CONTROL. LEUKOCYTOSIS. THIS MAY BE ACUTE REACTED TO THE FRACTURE. HOWEVER WE WILL RULE OUT A UTI ALL PNEUMONIA. PATIENT WILL BE STARTED ON ANTIBIOTICS FOR NOW. BLOOD CULTURE WILL BE SENT. DAILY CBC TO FOLLOW ANEMIA. MOST LIKELY OF CHRONIC DISEASE. WE WILL MONITOR FOR NOW. THROMBOCYTOSIS. THIS MIGHT ALSO INDICATE INFECTIOUS PROCESS. WILL MONITOR FOR NOW ON ANTIBIOTICS HYPERTENSION PER HISTORY. PATIENT WILL BE RESTARTED ON HIS HOME MEDICATION INDICATED SACRAL DECUBITUS ULCER. THIS WAS PRESENT ON ARRIVAL. PATIENT WILL BE REFERRED TO WOUND CARE TEAM. SPECIAL BED WILL BE ORDERED. PATIENT WILL NEED TO BE TURNED EVERY 2 HRS; ADDITIONAL MANAGEMENT INDICATED DURATION OF STAY : 2-4 DAYS TIME SPENT : 45 MINS Quality VTE Deep Vein Thrombosis/Pulmonary Embolism Present on Admission: No
[2018-05-10 18:45] LABS: Bacteria Urine None Seen; RBC Urine None Seen (0-5/HPF)
[2018-05-10 18:46] LABS: Appearance Urine UA CLEAR; Bilirubin Urine UA NEGATIVE (NEGATIVE); Color Urine UA YELLOW; Glucose Urine UA NEGATIVE (Negative); Ketones Urine UA NEGATIVE (NEGATIVE); Leukocyte Esterase Urine UA NEGATIVE (NEGATIVE); Nitrite Urine UA NEGATIVE (Negative); Occult Blood Urine UA NEGATIVE (Negative); Protein Urine UA NEGATIVE (Negative); Urobilinogen Urine UA 0.2 E.U./dL (0.2)
[2018-05-10 18:54] LABS: Culture Indicated Urine Cult Not Indicated; Squamous Epithelial Cell Urine 0-1 /HPF; WBC Urine 0-1/HPF (0-5/HPF)
[2018-05-10] MEDS: CEFTRIAXONE 1 GM/50 ML FROZ.PIGGY IV (19:22)
[2018-05-10 20:22] VITALS: BP 152/74; PULSE 72; RESP 14; TEMP 36.8; O2SAT 97
[2018-05-10] MEDS: LORazepam 0.5 MG TABLET PO (20:24)
[2018-05-10] MEDS: metroNIDAZOLE 500 MG TABLET PO (20:25)
[2018-05-10 23:50] VITALS: O2SAT 94
[2018-05-10] MEDS: HYDROCODONE/ACET 5/325 TABLET 1 TAB PO (23:54)
[2018-05-11] VITALS (7 sets, daily range): BP systolic 122–155; BP diastolic 58–76; PULSE 77–84; RESP 17–18; TEMP 36.5–36.8; O2SAT 94–97; BMI 28.2
[2018-05-11] MEDS: metroNIDAZOLE 500 MG TABLET PO ×3 (03:00→19:24)
[2018-05-11 06:01] LABS: Basophils Percent Auto 0.7 % (0-2); Eosinophils Percent Auto 5.1 % (2-4); Hematocrit 31.1 % (41-53); Hemoglobin 10.5 g/dL (13.5-17.5); Lymphocytes Percent Auto 27.5 % (25-40); Mean Corpuscular HGB Conc 33.8 % (30-36); Mean Corpuscular Hemoglobin 32.8 PG (26-34); Monocytes Percent Auto 12.2 % (3-14); Neutrophils Absolute Auto 6800 /uL (1500-7000); Neutrophils Percent Auto 54.5 % (50-75); Platelet Count 380 X10^3/uL (150-400); Red Blood Cell Count 3.21 X10^6/uL (4.5-5.9); Red Cell Distribution Width 13.9 % (11.6-14.8); White Blood Cell Count 12.4 X10^3/uL (4.5-11.0)
[2018-05-11 06:05] LABS: Alanine Aminotransferase 23 IU/L (21-72); Albumin 2.7 g/dL (3.5-5.0); Albumin Globulin Ratio 0.9 (1.0-2.8); Alkaline Phosphatase 89 U/L (38-126); Aspartate Aminotransferase 25 IU/L (17-59); Bilirubin Total 0.2 mg/dL (0.2-1.3); Blood Urea Nitrogen 8 mg/dL (9-20); Calcium 8.4 mg/dL (8.4-10.2); Carbon Dioxide 29 mmol/L (22-32); Chloride 101 mmol/L (98-107); Estimated Glomerular Filt Rate > 60.0 mL/min (>60); Glucose 89 mg/dL (80-110); HEMOLYSIS < 15 (0-50); Magnesium 1.8 mg/dL (1.6-2.3); Phosphorous 3.7 mg/dL (2.3-3.7); Potassium 3.5 mmol/L (3.4-5.1); Sodium 137 mmol/L (137-145); Total Protein 5.7 g/dL (6.3-8.2)
--- NOTE | 2018-05-11 06:55 | PC.NURSE ---
A&OX3, 94%RA. LS: clear. bilat LE edema +2, compression stocking on. btx4. PP++. administered 1 tab norco for L.hip pain 11/21. call light in reach. bed alarm active.
[2018-05-11 07:01] LABS: Add Manual Diff / Slide Review NO
[2018-05-11] MEDS: MULTIVITAMIN 1 TABLET 1 TAB PO (09:05)
--- NOTE | 2018-05-11 10:20 | PT.IIE ---
Medical History (Last Reviewed 05/10/18 @ 19:15 by Arminda Ballesteros DO) Fall (Acute) Hypertension (Acute) Right femoral fracture (Acute) Physical Therapy Inpatient Evaluation/Re-Eval M1 PT/OT-IP Prior Functional Status Start: 05/11/18 13:32 Freq: NEEDED Status: Active Protocol: Document 05/11/18 10:20 AB (Rec: 05/11/18 13:59 AB [id number]) Medical Review Prior Functional Status Medical History Reviewed Yes Communication able to make needs known Mobility and Gait pt s/p fall last october 2017 and underwent hemiarthroplasty. pt went to [facility] for rehab and went home afterwards. stated that he was receiving homehealth PT and then afterwards goes to outpt PT. stated that his spouse has been assisting him at home ( assists him with bed mobility) and has not been ambulating at home and usually uses a manual w/c for mobility. stated that the only time he uses the FWW was to transfer from the w/c to the toilet. pt able to maneuver self using a manual w/c Social History Household Members spouse Living Arrangements House Number of Floors (Floors) Two Floors Number of Stairs To Enter/Railing? pt stays on the main level and has a ramp to enter the house Home Environment High Toilet Walk in Shower Home Equipment Front Wheel Walker Manual Wheelchair Shower Seat with Backrest Hand Held Shower Grab Bars Near Toilet Grab Bars In Shower Employment Status Retired Additional Social History Comment stated homehealth therapy has already looked at and set up home equipement needs M2 PT-IP Current Condition Start: 05/11/18 13:32 Freq: NEEDED Status: Active Protocol: Document 05/11/18 10:20 AB (Rec: 05/11/18 13:59 AB [id number]) Physical Therapy Current Condition Current Condition Evaluation Date 05/11/18 Treatment Diagnosis L inf pubic ramus fx; difficulty in walking Onset Date 05/10/18 Weight Bearing Status Weight Bearing Status Weight Bear as Tolerated M3 PT-IP Subjective Start: 05/11/18 13:32 Freq: NEEDED Status: Active Protocol: Document 05/11/18 10:20 AB (Rec: 05/11/18 13:59 AB [id number]) Subjective Physical Therapy Visit Type Type Initial Evaluation Visit Start Time 10:20 Visit Stop Time 10:57 Total Visit Minutes 37 Number of COUNTY HOME DEMONSTRATOR Visits 0 Therapy Pain Assessment Pain When Pain Assessed During Mobility Pain Present Pain Present Pain Reported Location Buttock Scale Used Numeric (1 - 10) Left Hip Intensity 8 Scale Used Numeric (1 - 10) Pain Behaviors Holding Area Pain Management Techniques Re-positioning M4 PT-IP Mobility and Gait Start: 05/11/18 13:32 Freq: NEEDED Status: Active Protocol: Document 05/11/18 10:20 AB (Rec: 05/11/18 13:59 AB [id number]) PT-Bed Mobility Assessment Rolling Type of Rolling Roll to Right Level of Assist Maximal Assistance 1 Person Assistance 2 Person Assistance PT-Transfer Assessment Comments Mobility Comments pt completed bed mobility rolling to the R. attempted supine to sit with max A and max cues but c/o increase pain . attempted supine to sit again but pt stated that pain is too much and requested to rest and have pain meds first and for PT to come back in afternoon. nurse informed. M5 PT-IP Objective Assessments Start: 05/11/18 13:32 Freq: NEEDED Status: Active Protocol: Document 05/11/18 10:20 AB (Rec: 05/11/18 13:59 AB [id number]) Orientation Orientation/Cognition Level of Alertness Alert Orientation Name Place Situation Safety Awareness Decreased Safety Awareness Memory Description Short Term Impaired Marketing Finance Manager Impaired Gross Range of Motion Lower Extremity ROM Assessment Within Functional Limits Strength Lower Extremity Strength Assessment Left Impaired Hip 3-/5 Knee 3-/5 Sensation Assessment Sensation Gross Sensation WNL Muscle Tone Muscle Tone WNL Yes M6 PT-IP Treatment Start: 05/11/18 13:32 Freq: NEEDED Status: Active Protocol: Document 05/11/18 10:20 AB (Rec: 05/11/18 13:59 AB [id number]) Physical Therapy Treatment Exercises Exercises Heel Slides Education Education Provided Precautions Safety M7 PT-IP Assessment and Plan Start: 05/11/18 13:32 Freq: NEEDED Status: Active Protocol: Document 05/11/18 10:20 AB (Rec: 05/11/18 13:59 AB [id number]) PT Summary Assessment and Plan Potential Rehabilitation Potential Fair Status of Condition at Evaluation Evolving Summary Impairments Pain ROM Strength Balance Coordination Sensation Tone Cognition Bed Mobility Transfers Gait Activity Tolerance Assessment Summary pt unable to tolerate activity this morning and was only able to do rolling in bed in an attempt to sit up but unable to complete supine to sit due to c/o increase pain. stated that this is the most activity he has done for a few weeks since he has stayed in bed most of the time at home due to pain. Pt currently requires max A x 1-2 for bed mobility and will require SNF rehab to improve strength, activity tolerance and functional mobility. Goals Bed Mobility Goal Minimal Assistance Transfer Goal Minimal Assistance Front Wheeled Walker Gait Goal Minimal Assistance Front Wheel Walker Gait Distance 50 Days to Meet Goals 5 Frequency of Treatment Frequency Of Treatment Twice a Day Treatment Plan Physical Therapy Treatment Plan Bed Mobility Training Transfer Training Gait Training Therapeutic Exercise Balance Retraining Discharge Planning Hot or Cold Pack Neuromuscular Re-ed Coordination Retraining Manual Therapy Other Recommendations and Next Treatment transfers Focus Recommendations To Nursing Amount of Assist Needed PT/OT Assist Only Mechanical Lift Discharge Recommendations PT Discharge Recommendations SNF Rehab
--- NOTE | 2018-05-11 10:45 | CM.DANOTE ---
Addendum entered by EDUARDA Chappell 05/11/18 14:17: ADD: SW called [facility] again to inquire about where to find Consult notes once completed and should show up in EMR when complete. Confirmed that Dr. Walker likely can come bedside for pt wound consult today after 1500. Per PT, able to complete most of the initial PT eval but limited due to pt's pain mngmt issues and will attempt again this afternoon but definitely recommending SNF rehab due to extreme deconditioning. SHEKHAR faxed initial PT eval, H&P, prog note to pt's assigned [facility] Amie Chambers requesting review for SNF auth at [facility] when stable and updated we are waiting for Wound Consult this afternoon and further PT/OT this afternoon but wanted to start initial SNF auth process. Per Fouzia at [facility], wanting more information after Wound Consult towards determining if pt will need specialized bed for sacral wound and any wound care recommendations before confirming if they could accept. Plan: SW to follow closely for [place] review for SNF auth and Wound Consult note this afternoon towards [facility] questions for wound care. EDUARDA Chappell Original Note: Patient is an 83 year old male who was admitted on 05/10/18 for Stage II Coccyx, edema, fall. Pt has [facility] for insurance and his PCP is Dr. Varghese. EMR was reviewed. Per MD, pt has nonsurgical fx and sacral wounds and request Wound Care Consult and PT/OT eval for likely SNF. PT/OT ordered and pending. SHEKHAR called [facility] ([phone]) and alerted them to Wound Care Consult order since today is Monday going into the weekend and they will alert their MD Dr. Walker of the order and will likely see pt today. SW met bedside with pt while PT was preparing to get pt up to the bedside chair and pt confirms that he lives on [address] with his and their disabled adult son who they provide some assist to. Pt confirmed that he has become increasingly more bed bound with sacral painful wounds and mostly w/c bound at this time for most ambulation. Pt's DPOA is his spouse Kiki. Pt confirms that when he was last admitted to [facility] in October 2017 this year he discharged with similar fx to [facility] SNF rehab and felt it was helpful although he states that he did not follow all recommendations at d/c to home and feels that SNF rehab is needed again at this current discharge prior to safe return home. SW provided the SNF Choice List and pt confirms that his preference is [facility] again and requests referral and to initiate [facility] auth. Pt states that his will be in later today after she situates their disabled son and takes their dog to the dog kennel. SW called [facility] with new referral and requested review. Plan: SW to follow after PT/OT eval and recommendations to fax [place] clinicals towards SNF auth. SW to follow for [facility] review of patient for possible placement at d/c. EDUARDA Chappell Discharge Planning/Care Management CM Discharge Assessment Start: 05/11/18 10:39 Freq: Status: Active Protocol: Document 05/11/18 10:39 BF (Rec: 05/11/18 10:45 BF [id number]) Discharge Planning Assessment Assigned Research Manufacturing Operator EDUARDA Rodriguez DPOA/Assigned Designee Name spouse Kiki Contact Information [phone] Advance Directives? Yes Advance Directives on File No: ASKED TO BRING IN A COPY History Provided By Patient Medical Record Has Patient been admitted in last 30 No days? Prior Living Arrangements House Household Members spouse Type of transporation used prior to Relies on Others admit Comment Patient resides on [facility] with spouse and has become increasingly more bed bound and has sacral wounds and requiring increased assist from spouse. Independent with ADL's No: needing increased assist from spouse Is patient alert and oriented? Yes Needs Assistance With Meal Prep Managing Medications Home Chores / Shopping Caregiver for Another Yes: Disabled adult son at home that they assist Patient/Family Preference Senior Living Facility Comment Patient has hx of [facility] this summer and feels he would benefit from SNF again at d/c prior to home. Comment Waiting for PT/OT eval and recommendations, but likely SNF Barriers to Discharge Yes Comment Will need [facility] auth after PT/OT eval Discharge Plan Senior Living Facility Transportation Arrangement If SNF, likely facility w/c van for transport Referrals Initiated Senior Living Additional Comment Referral made to [facility] per pt request If patient plan is SNF: Has PASSR been Yes completed? Medicare Choice List Provided Yes SNF/HH Preference FCC Has Agency SNF been contacted Yes Whiteboard Updated in Patient Room with Yes name and ext. # of Research Manufacturing Operator Review Status In Process Please Provide Date Initial DC 05/11/18 Assessment Was Performed Next Review Type Continued Stay Review
[2018-05-11] MEDS: HYDROCODONE/ACET 5/325 TABLET 1 TAB PO (10:57)
--- NOTE | 2018-05-11 11:30 | PC.NURSE ---
Day Shift- Confirmed with Dr. Danielle that the DOM bed/mattress is appropriate for pt at this time. Repositioning in bed supported with pillows every 2 hours. Plan for pre-medicate with prn pain meds prior to PT/OT. pt now agreeable. Refused prn pain meds this morning for 6-7/10 pain. Did give prn med at 1100 during PT session.
[2018-05-11] MEDS: TRAMADOL 50 MG TABLET PO ×2 (12:11→20:09)
[2018-05-11] MEDS: DEXAMETHASONE 4 MG TABLET PO ×2 (12:11→22:32)
--- NOTE | 2018-05-11 13:47 | PM.PN.1 ---
Subjective Date Patient Seen: 05/11/18 Time Patient Seen: 13:47 Interval history: HAVIN TO HIP/PELVIC AREA NOT ABLE TO PARTICIPATE IN PT/OT ACT TODAY DUE TO PAIN NO CP/SOB SPOKE TO NURSING REGARDING CASE Exam Vital Signs (past 8 hours): - 05/11/18 08:00 05/11/18 08:20 Temperature 97.9 F Pulse Rate 80 Respiratory Rate 18 Blood Pressure 153/74 H Pulse Oximetry 96 96 Oxygen Delivery Method Room Air Oxygen Flow Rate 0 Narrative Exam Narrative: NO ACUTE DISTRESS. PATIENT IS ALERT ORIENTED X3. VITAL SIGNS STABLE HEAD ATRAUMATIC NORMOCEPHALIC NECK : SUPPLE WITHOUT ADENOPATHY NO CAROTID BRUITS EYE: EOMI, PERRLA, NORMAL CONJUNCTIVA; NO JAUNDICE CHEST: REGULAR RATE. NO RUBS. PMI IS NON DISPLACED. ; NORMAL S1-S2 PULMONARY: DECREASED BS OVER THE BASES. BIBASILAR CRACKLES NOTED; NO INCREASED DULLNESS TO PERCUSSION; NO WHEEZING ABDOMEN: SOFT. NON TENDER. NON DISTENDED. BOWEL SOUNDS ARE PRESENT IN ALL 4 QUADRANTS. NO MASS. EXTREMITIES: 3+ EDEMA.. NO CYANOSIS OR CLUBBING NOTED. NEURO: CRANIAL NERVES 2-12 GROSSLY INTACT. NO FOCAL NEUROLOGICAL DEFICIT NOTED. MSK: PAIN WITH ACTIVE AND PASSIVE ROM OF LOWER EXT ANGELICA; NO JOINT EFFUSION SKIN: NORMAL FOR ETHNICITY; NO ECCHYMOSIS. NO LESION. FAIR TURGOR.; NO RASHES : NORMAL EXTERNAL GENITALIA. PSYCH : APPROPRIATE MOOD AND AFFECT. ALERT AWAKE ORIENTED X3 Objective Labs Result Diagrams: 05/11/18 05:35 05/11/18 05:35 Labs: Laboratory Results - last 24 hr 05/10/18 05/10/18 05/10/18 15:45 15:45 15:45 WBC 16.7 H RBC 3.67 L Hgb 11.9 L Hct 35.2 L MCV 95.9 MCH 32.3 MCHC 33.7 RDW 13.8 Plt Count 433 H Neut % (Auto) Not Reportable Lymph % (Auto) Not Reportable [place] % (Auto) Not Reportable Eos % (Auto) Not Reportable Baso % (Auto) Not Reportable Neut # (Auto) Total Counted 100 Seg Neutrophils % 61.0 Band Neutrophils % 8.0 H Lymphocytes % (Manual) 23.0 L Atypical Lymphs % 1.0 H Monocytes % (Manual) 6.0 Eosinophils % (Manual) 1.0 L Neutrophils # (Manual) 81138 H RBC Morphology Normal morphology Sodium 140 Potassium 3.6 Chloride 98 Carbon Dioxide 28 BUN 9 Creatinine 0.70 Estimated GFR > 60.0 BUN/Creatinine Ratio 12.9 Glucose 95 Lactate 1.1 Calcium 8.6 Phosphorus Magnesium Total Bilirubin 0.3 AST 28 ALT 21 Alkaline Phosphatase 113 Total Protein 6.6 Albumin 3.4 L Globulin 3.2 Albumin/Globulin Ratio 1.1 Urine Color Urine Appearance Urine pH Ur Specific [place] Urine Protein Urine Glucose (UA) Urine Ketones Urine Occult Blood Urine Nitrate Urine Bilirubin Urine Urobilinogen Ur Leukocyte Esterase Urine RBC Urine WBC Ur Squamous Epith Cells Urine Bacteria Ur Culture Indicated? Micro UA Comment 05/10/18 05/11/18 05/11/18 18:25 05:35 05:35 WBC 12.4 H RBC 3.21 L Hgb 10.5 L Hct 31.1 L MCV 97.0 MCH 32.8 MCHC 33.8 RDW 13.9 Plt Count 380 Neut % (Auto) 54.5 Lymph % (Auto) 27.5 [place] % (Auto) 12.2 Eos % (Auto) 5.1 H Baso % (Auto) 0.7 Neut # (Auto) 6800 Total Counted Seg Neutrophils % Band Neutrophils % Lymphocytes % (Manual) Atypical Lymphs % Monocytes % (Manual) Eosinophils % (Manual) Neutrophils # (Manual) RBC Morphology Sodium 137 Potassium 3.5 Chloride 101 Carbon Dioxide 29 BUN 8 L Creatinine 0.80 Estimated GFR > 60.0 BUN/Creatinine Ratio 10.0 Glucose 89 Lactate Calcium 8.4 Phosphorus 3.7 Magnesium 1.8 Total Bilirubin 0.2 AST 25 ALT 23 Alkaline Phosphatase 89 Total Protein 5.7 L Albumin 2.7 L Globulin 3.0 Albumin/Globulin Ratio 0.9 L Urine Color Yellow Urine Appearance Clear Urine pH 7.0 Ur Specific [place] 1.020 Urine Protein Negative Urine Glucose (UA) Negative Urine Ketones Negative Urine Occult Blood Negative Urine Nitrate Negative Urine Bilirubin Negative Urine Urobilinogen 0.2 Ur Leukocyte Esterase Negative Urine RBC None seen Urine WBC 0-1/hpf Ur Squamous Epith Cells 0-1 /hpf Urine Bacteria None seen Ur Culture Indicated? Cult not indicated Micro UA Comment Not Reportable Assessment & Plan Plan: Assessment/Plan Narrative: IMPRESSION AND PLAN STATUS POST FALL. THIS APPEARS TO BE DUE TO PHYSICAL DECONDITIONING. STRICT FALL PRECAUTION ; PHYSICAL THERAPY/ OCCUPATIONAL THERAPY NONDISPLACED PUBIC RAMUS FRACTURE; THIS IS A NONSURGICAL FRACTURE. THIS WILL BE TREATED CONSERVATIVELY. PT / OT. PAIN MEDS ADJUSTED TODAY FOR BETTER CONTROL. CONSIDER BRACE INDICATED LEUKOCYTOSIS. NO S/S OF INFECTIOUS PROCESS FOUND IN W/U; UA/ CXR NEG; AND NO FEVER REPORTED; HOWEVER, THIS COULD BE RELATED TO HIS DECUB ULCERS ; FOLLOW CLOSELY; DAILY CBC; CONT ABX FOR ANOTHER 24-48 HRS ANEMIA. MOST LIKELY OF CHRONIC DISEASE. CONT TO MONITOR FOR NOW. THROMBOCYTOSIS. RESOLVED HYPERTENSION PER HISTORY. PATIENT WILL BE RESTARTED ON HIS HOME MEDICATION INDICATED SACRAL DECUBITUS ULCER. THIS WAS PRESENT ON ARRIVAL. PATIENT WILL BE REFERRED TO WOUND CARE TEAM. SPECIAL BED. PATIENT WILL NEED TO BE TURNED EVERY 2 HRS; CONT ABX FOR NOW; WILL ADD DOXY; ADDITIONAL MANAGEMENT INDICATED DC PER CLINICAL COURSE WHEN STABLE ;LIKELY IN 2-3 DAYS Quality VTE Deep Vein Thrombosis/Pulmonary Embolism Present on Admission: No
--- NOTE | 2018-05-11 14:37 | PT.IPTN ---
Physical Therapy Treatment Note M2 PT-IP Current Condition Start: 05/11/18 13:32 Freq: NEEDED Status: Active Protocol: Document 05/11/18 10:20 AB (Rec: 05/11/18 13:59 AB [id number]) Physical Therapy Current Condition Current Condition Evaluation Date 05/11/18 Treatment Diagnosis L inf pubic ramus fx; difficulty in walking Onset Date 05/10/18 Weight Bearing Status Weight Bearing Status Weight Bear as Tolerated M3 PT-IP Subjective Start: 05/11/18 13:32 Freq: NEEDED Status: Active Protocol: Document 05/11/18 14:37 AB (Rec: 05/11/18 15:15 AB [id number]) Subjective Physical Therapy Visit Type Type Treatment Note Visit Start Time 14:37 Visit Stop Time 14:57 Total Visit Minutes 20 Number of LABEL STITCHER Visits 0 Physical Therapy Visit Comments Patient Comments pt agreeable to do PT Therapy Pain Assessment Pain When Pain Assessed At Rest Pain Present Pain Present Pain Reported Location Buttock Intensity 4 Scale Used Numeric (1 - 10) Pain Management Techniques Re-positioning Timing of Activity with Medications M4 PT-IP Mobility and Gait Start: 05/11/18 13:32 Freq: NEEDED Status: Active Protocol: Document 05/11/18 14:37 AB (Rec: 05/11/18 15:15 AB [id number]) PT-Bed Mobility Assessment Rolling Type of Rolling Log Rolling Level of Assist Maximal Assistance 2 Person Assistance Supine to Sit Supine to Sit Maximum Assistance 2 Person Assistance Scooting Scooting to Edge of Bed Standby Assistance PT-Transfer Assessment Sit to and From Stand Sit to and from Stand Minimal Assistance 1 Person Assistance Use of Upper Extremities Equipment Transfer Assistive Device Gait Belt Front Wheeled Walker Orthotic/Prosthetic Devices or Brace: No Transfers Transfer Destination Chair Transfer Technique pt ambulated to the chair using FWW Transfer Ability Level of Assist Minimal Assistance 1 Person Assistance Gait Assessment Gait Gait Assistance Required: Minimum Assistance 1 Person Assist Distance (Feet) 15 Able to Maintain Weight Bearing Status Yes During Gait Assistive Devices Assistive Device Gait Belt Front Wheeled Walker Orthotic/Prosthetic Devices or Brace: No Gait Deviations General Gait Pattern Ataxic Decreased Stride Length Decreased Feet Clearance Flexed Trunk Factors Limiting Gait Function Factors Limiting Gait Function Decreased Activity Tolerance Decreased Strength Limited Range of Motion Pain Comments Gait Comments pt ambulated in room using FWW min A and cues ~ 15 ft with c /o pain on buttocks and unable to tolerate much ambulation. M5 PT-IP Objective Assessments Start: 05/11/18 13:32 Freq: NEEDED Status: Active Protocol: Document 05/11/18 10:20 AB (Rec: 05/11/18 13:59 AB [id number]) Orientation Orientation/Cognition Level of Alertness Alert Orientation Name Place Situation Safety Awareness Decreased Safety Awareness Memory Description Short Term Impaired Chronometer Assembler Impaired Gross Range of Motion Lower Extremity ROM Assessment Within Functional Limits Strength Lower Extremity Strength Assessment Left Impaired Hip 3-/5 Knee 3-/5 Sensation Assessment Sensation Gross Sensation WNL Muscle Tone Muscle Tone WNL Yes M6 PT-IP Treatment Start: 05/11/18 13:32 Freq: NEEDED Status: Active Protocol: Document 05/11/18 14:37 AB (Rec: 05/11/18 15:15 AB [id number]) Physical Therapy Treatment Education Education Provided Safety M7 PT-IP Assessment and Plan Start: 05/11/18 13:32 Freq: NEEDED Status: Active Protocol: Document 05/11/18 14:37 AB (Rec: 05/11/18 15:15 AB [id number]) PT Summary Assessment and Plan Potential Rehabilitation Potential Good Summary Impairments Pain ROM Strength Balance Coordination Sensation Tone Cognition Bed Mobility Transfers Gait Activity Tolerance Progress Towards Goals Slow Progress due to Pain Slow Progress due to Activity Tolerance Assessment Summary pt requires 2 person assist with bed mobility, min A for transfers but unable to tolerate much activity with decrease ambulation using FWW. pt will need SNF rehab to improve strength and functional mobility prior to d /c home. pt with h/o falls with recent fall sustaining L pubic fracture hence the hospitalization. pt continues to be a fall risk. Goals Bed Mobility Goal Minimal Assistance Transfer Goal Minimal Assistance Front Wheeled Walker Gait Goal Minimal Assistance Front Wheel Walker Gait Distance 50 Days to Meet Goals 5 Frequency of Treatment Frequency Of Treatment Twice a Day Treatment Plan Physical Therapy Treatment Plan Bed Mobility Training Transfer Training Gait Training Therapeutic Exercise Balance Retraining Discharge Planning Hot or Cold Pack Neuromuscular Re-ed Coordination Retraining Manual Therapy Other Recommendations and Next Treatment transfers Focus Recommendations To Nursing Amount of Assist Needed 1 Person Assist 2 Person Assist Discharge Recommendations PT Discharge Recommendations SNF Rehab
--- NOTE | 2018-05-11 14:40 | OT.IP.EVAL ---
Past Medical History (Last Reviewed 05/10/18 @ 19:15 by Arminda Ballesteros DO) Fall (Acute) Hypertension (Acute) Right femoral fracture (Acute) Occupational Therapy Inpatient Evaluation/Re-Eval M1 PT/OT-IP Prior Functional Status Start: 05/11/18 13:32 Freq: NEEDED Status: Active Protocol: Document 05/11/18 14:40 PJM (Rec: 05/11/18 17:01 PJM [id number]) Medical Review Prior Functional Status Medical History Reviewed Yes Diet/Fluid Consistency Regular Communication WNL Mobility and Gait Pt s/p fall in October 2017 and underwent L hip hemiarthroplasty. Pt went to [facility] for rehab and went home afterwards. He received home health PT and then progressed to out pt PT. He stated that his spouse has been assisting him at home with bed mobility and he uses a manual w/c for most mobility . Prior to this most recent fall pt walked about 50-100 ft with FWW. Since most recent fall, he stated that the only time he uses the FWW was to transfer from the w/c to the toilet (3-4 ft due to pain). No family here to confirm home situation. Pt able to maneuver self using a manual w/c. Activities of Daily Living and IADL's Pt states he did grooming standing at least 50% of the time, was able to dress himself with adaptive equipment, and was independent with toileting. His assisted him with showering. Prior Functional Level (Other details) His does all IADLS and driving. Note pt was admitted with sacral ulcer with wound care consult pending. Social History Household Members spouse Living Arrangements House Number of Floors (Floors) 3 or More Floors Number of Stairs To Enter/Railing? Pt can stay on main level with ramp to enter Home Environment High Toilet Walk in Shower Ramp Home Equipment Four Wheel Walker Manual Wheelchair Shower Seat with Backrest Hand Held Shower Long Handled Sponge Long Handled Shoe [employer] Analyst Sock Aid Grab Bars Near Toilet Grab Bars In Shower Employment Status Retired Additional Social History Comment Pt lives on [address]. His disabled adult son lives with them. M2 OT-IP Current Condition Start: 05/11/18 16:41 Freq: Status: Active Protocol: Document 05/11/18 14:40 PJM (Rec: 05/11/18 17:01 PJM [id number]) Occupational Therapy Current Condition Current Condition Evaluation Date 05/11/18 Treatment Diagnosis decreased self care, mobility s/p L pelvic fx from GLF(non surgical) Diagnosis Onset Date 05/10/18 Post Operative Precautions Other Precautions fall risk Weight Bearing Status Weight Bearing Status Weight Bear as Tolerated Allowed Weight Bearing Amount (enter % LLE or #) (%) M3 OT- IP Subjective and Pain Start: 05/11/18 16:41 Freq: Status: Active Protocol: Document 05/11/18 14:40 PJM (Rec: 05/11/18 17:01 PJM [id number]) OT- Subjective Occupational Therapy Visit Type Type Initial Evaluation Visit Start Time 14:24 Visit Stop Time 14:40 Total Visit Minutes 16 Notes Pt familiar to this therapist from last admit. Occupational Therapy Visit Comments Patient Comments I know I can't go home until I am stronger. It would not be safe for me or my . Patient/Caregiver Goals to be able to walk short distances with less pain OT Pain Assessment Pain When Pain Assessed At Rest Pain Present Pain Present Pain Reported Location Buttock Scale Used Numeric (1 - 10) Left Hip Intensity 2 Scale Used Numeric (1 - 10) Description Aching Acute M4 OT- IP ADL's Start: 05/11/18 16:41 Freq: Status: Active Protocol: Document 05/11/18 14:40 PJM (Rec: 05/11/18 17:01 PJM [id number]) OT TQO-Ekxb-Iyaapgi General Evaluation Self-Feeding Ability Independent Comments OT Self-Feeding Comments after set up in bed OT ADL-Grooming General Evaluation Grooming Ability Standby Assistance Areas Needing Assistance Combing/Brushing Hair Face Washing Comments OT Grooming Comments after set up in bed OT ADL-Oral Care General Eval Oral Care Ability Standby Assistance Areas of Assistance Retrieving/Set-Up of Items Devices Oral Care Devices Toothbrush Comments Oral Care Comments after set up in bed OT ADL-Dressing General Eval Lower Body Dressing Ability Maximum Assistance Areas Needing Assistance Pants/Shorts Socks Shoes Comments OT Dressing Comments Pain currently limiting pt's independence with lower body dressing. Will ask to bring pt's adaptive equipt to increase independence with donning pants, socks, shoes. OT ADL-Toileting Comments OT Toileting Comments did not occur this session OT ADL-Bathing Bathing Type Bathing Type Sponge Bath General Evaluation Bathing Ability Maximal Assistance Comments OT Bathing Comments pt currently requires max assist with bed bath and has sacral wound M5 OT- IP IADL's Start: 05/11/18 16:41 Freq: Status: Active Protocol: Document 05/11/18 14:40 PJM (Rec: 05/11/18 17:01 PJ NR) OT-Instrumental Activities of Daily Living Deficits IADL Deficits Identified Deficits Home Safety Awareness Awareness of Need for Assistance at Home Good Awareness Ability to Problem Solve Emergency Able to Problem Solve Situations Medication Management Medication Management Caregiver Provides Supervision Medication Management Comments assists with all IADLS at home Money Management Money Management Caregiver Provides Assistance Meal Preparation Meal Preparation Caregiver Provides Assist Passenger Solicitor Passenger Solicitor Caregiver Provides Assist Driving Driving Caregiver Provides Assist M6 OT- IP Functional Cognition Start: 05/11/18 16:41 Freq: Status: Active Protocol: Document 05/11/18 14:40 PJM (Rec: 05/11/18 17:01 PJ NR) Cognitive Factors Limiting Selfcare Function Cognitive Ability Level of Alertness Alert Patient Orientation Name Age Birthday Month Date Year Day of Week Place Situation Attention Span Ability Capable of Focused Attention Capable of Sustained Attention Ability to Follow Commands Able to Follow One Step Commands Memory Description Short Term Impaired Cognitive Comments Cognitive Assessment Comments Pt mildly confused about sequence of recent medical evants. OT- Vision and Hearing OT- Hearing Assessment OT- Hearing Assessment WFL OT- Vision Assessment Visual Acuity WFL Glasses All The Time M7 OT- IP Mobility and Balance Start: 05/11/18 16:41 Freq: Status: Active Protocol: Document 05/11/18 14:40 PJM (Rec: 05/11/18 17:01 [facility] NR) OT-Transfer Assessment Comments Mobility Comments See P.T. notes OT- Gait Assessment Comments Gait Ability Comments See P.T. notes OT- Balance Assessment Comments Other Balance Tests/Deviations/Treatment See P.T. notes : M8 OT- IP Objective Assessments Start: 05/11/18 16:41 Freq: Status: Active Protocol: Document 05/11/18 14:40 PJM (Rec: 05/11/18 17:01 PJ NR) OT Gross Range of Motion Upper Extremity Range of Motion Assessment Within Functional Limits OT Strength Upper Extremity Strength Assessment Within Functional Limits Comments Strength Comments deconditioned but WFL for basic self care OT- Coordination Assessment Comments Coordination Comments BUE WFL OT-Muscle Tone Assessment Muscle Tone WNL Yes OT Sensation Assessment Comments Summary Comments BUE WNL per pt M9 OT- IP Assessment and Plan Start: 05/11/18 16:41 Freq: Status: Active Protocol: Document 05/11/18 14:40 PJM (Rec: 05/11/18 17:01 PJM [id number]) OT Summary Assessment and Plan Potential Rehabilitation Potential Good Analytic Complexity at Evaluation Low Summary OT Impairments Pain Strength Balance Functional Mobility Grooming Dressing Toileting Bathing Toilet Transfers Shower Transfers Assessment Summary Low complexity OT assessment completed. Pt is far below his recent baseline level of function due to ground level fall with non surgical L inferior pubic ramus fx complicated by sacral wound that was present prior to admit. Wound care consult pending. Pt's current high pain level is resulting in significant performance deficits in all functional mobility/transfers, standing grooming, lower body dressing, bathing and toileting. He has not yet mobilized with P.T. Pt is not safe to return home with elderly 's assist at this time. Recommend SNF at d/c for further subacute rehab services. Pt is motivated to regain independence and return home when able. Goals Grooming Goal Minimal Assistance Dressing Goal Minimal Assistance Long Handled Shoe [employer] Order Analyst Sock Aid Toileting Goal Moderate Assistance Bathing Goal Minimal Assistance Toilet Transfer Goal Minimal Assistance Bedside Commode Patient/Caregiver Education Goal Demonstrate Energy Conservation and Pacing OT-Other Goals Grooming to be done standing at sink or seated in chair by sink. Bathing goal is for seated upper body sponge bath. Days to Meet Goals 5 Frequency of Treatment Frequency Of Treatment Once a Day Treatment Plan OT Treatment Plan ADL Training Functional Mobility Patient/Family Education Discharge Planning Discharge Recommendations OT Discharge Recommendations SNF Rehab
[2018-05-11] MEDS: DOXYCYCLINE HYCLATE 100 MG TABLET PO ×2 (15:01→20:05)
[2018-05-11] MEDS: POLYETHYLENE GLYCOL 3350 17 GM POWD.PACK PO (15:01)
[2018-05-11] MEDS: MINERAL OIL LIGHT TOPICAL 25 ML 10 ML TOP (16:45)
[2018-05-11] MEDS: DONEPEZIL 5 MG TABLET 15 MG PO (16:46)
[2018-05-11] MEDS: CHOLECALCIFEROL (VITAMIN D3) 1,000 UNIT TABLET 2000 UNIT PO (16:46)
[2018-05-11] MEDS: ASPIRIN EC 81 MG TABLET 162 MG PO (16:46)
--- NOTE | 2018-05-11 17:06 | PM.CN ---
History of Present Illness Date Patient Seen: 05/11/18 Time Patient Seen: 08:00 Chief complaint: weakness, Stage II Coccyx, bed bound, edema Reason for consult: Pressure ulcer Requesting provider: Kimber Wallis Narrative: Patient is an 83-year-old male with urinary incontinence and limited mobility due to deconditioned state after ORIF to repair a hip fracture in October 2017. He was essentially wheelchair bound and his would help him transfer via gait belt. Around 04/27/18, while trying to stand up out of his wheelchair by himself, he fell and he was eventually diagnosed during this admission with a pubic fracture. He usually wears adult pull-up undergarments and changes them after each urinary incontinence episode. About 1 week ago, he was admitted to an outside hospital in regards to evaluation of L hip and pelvic pain after his fall. He states he spent anywhere from 6 to 8 hours in his wheelchair while waiting in diagnostic imaging. During this time, he was incontinent, resulting in his having to spend a prolonged period in a wet diaper. Shortly thereafter he noted open wounds in the bilateral buttock area. At home, he has an [id number] gel wheelchair cushion. He has a memory foam mattress in his bed. [facility] Medical History Fall (Acute) Hypertension (Acute) Right femoral fracture (Acute) Social History household members: spouse Smoking Status: Never smoker alcohol intake: never Meds Home Medications Medication Instructions Recorded Confirmed Type albuterol sulfate 1 puff INHALATION Q4-6H PRN #6.7 09/13/17 05/10/18 Rx gram tamsulosin [Flomax] 0.4 mg PO BEDTIME 09/13/17 05/10/18 History aspirin 162 mg PO QPM 05/10/18 05/10/18 History calcium carb-mag ox-zinc sulf 1 tab PO QAM 05/10/18 05/10/18 History cholecalciferol (vitamin D3) 2,000 unit PO QPM 05/10/18 05/10/18 History [Vitamin D3] donepezil 15 mg PO QPM 05/10/18 05/10/18 History epinephrine [EpiPen 2-Lorenzo] 0.3 ml IM PRN PRN 05/10/18 05/10/18 History fluoxetine 5 mg PO DAILY 05/10/18 05/10/18 History levofloxacin 500 mg PO DAILYX9 05/10/18 05/10/18 History lorazepam 0.25 - 0.5 mg PO BID 05/10/18 05/10/18 History meclizine 25 mg PO BID PRN 05/10/18 05/10/18 History metronidazole 500 mg PO Q8H 05/10/18 05/10/18 History multivitamin 1 tab PO DAILY 05/10/18 05/10/18 History omega 3-zvd-cww-fish oil 1,200 mg PO DAILY 05/10/18 05/10/18 History ranitidine HCl 75 mg PO BEDTIME 05/10/18 05/10/18 History ranitidine HCl 150 mg PO QAM 05/10/18 05/10/18 History Allergies Allergy/AdvReac Type Severity Reaction Status Date / Time bee venom protein (honey bee) Allergy Severe Anaphylaxis Verified 05/11/18 15:18 gabapentin AdvReac Intermediate Hallucinati Verified 05/11/18 15:17 ng hydromorphone [From Dilaudid] AdvReac Intermediate Vomiting Verified 05/10/18 14:29 Review of Systems Constitutional Constitutional: Denies anorexia, Denies chills, Denies excessive sweating, Denies fatigue, Denies fever(s), Denies malaise, Denies poor appetite and Denies weight loss Genitourinary Genitourinary: Reports urinary incontinence Integumentary/Breasts Skin/Breast: Denies erythema, Denies rash, Denies skin pain and Reports skin ulcer (buttock) Endocrine Endocrine: Denies excessive sweating and Denies fatigue Exam Vital Signs (past 8 hours): - 05/11/18 14:13 05/11/18 15:53 Temperature 97.7 F 97.8 F Pulse Rate 81 81 Respiratory Rate 18 17 Blood Pressure 122/58 L 137/72 Pulse Oximetry 97 97 Oxygen Delivery Method Room Air Oxygen Flow Rate 0 Const General: cooperative, well developed and No acute distress Nutritional Appearance: well nourished Orientation: alert and oriented x3 Limitations: physical limitations (difficulty assuming various positions in bed due to pain from pelvic fracture.) HENPR Ears: hearing grossly normal bilaterally Eyes Conjunctivae: conjunctivae normal Sclera: sclerae normal Neck Neck: normal visual inspection Resp Effort & Inspection: normal respiratory effort Cardio Rate: regular rate Rhythm: regular rhythm Skin Wounds: wounds noted (Small open kissing wounds bilateral buttock near the gluteal cleft. Superficial loss of epidermis. Wound bed composed of 100% dermis. Area is noted to be covered with zinc based barrier cream. I do not note any erythema, induration, increased warmth, TTP, or associated drainage.) Neuro General: tone normal, moves all extremities and unable to assess gait Extrem General: normal to inspection and capillary refill normal Right lower extremity: edema Left lower extremity: edema Psych Appearance: grossly normal Mental Status: mental status grossly normal Mood: congruent mood Affect: normal affect Attitude: cooperative Thought Process: normal Thought Content: normal Judgment: judgment good Objective Labs Result Diagrams: 05/11/18 05:35 05/11/18 05:35 Labs: Laboratory Results - last 24 hr 05/10/18 05/11/18 05/11/18 18:25 05:35 05:35 WBC 12.4 H RBC 3.21 L Hgb 10.5 L Hct 31.1 L MCV 97.0 MCH 32.8 MCHC 33.8 RDW 13.9 Plt Count 380 Neut % (Auto) 54.5 Lymph % (Auto) 27.5 [place] % (Auto) 12.2 Eos % (Auto) 5.1 H Baso % (Auto) 0.7 Neut # (Auto) 6800 Sodium 137 Potassium 3.5 Chloride 101 Carbon Dioxide 29 BUN 8 L Creatinine 0.80 Estimated GFR > 60.0 BUN/Creatinine Ratio 10.0 Glucose 89 Calcium 8.4 Phosphorus 3.7 Magnesium 1.8 Total Bilirubin 0.2 AST 25 ALT 23 Alkaline Phosphatase 89 Total Protein 5.7 L Albumin 2.7 L Globulin 3.0 Albumin/Globulin Ratio 0.9 L Urine Color Yellow Urine Appearance Clear Urine pH 7.0 Ur Specific [place] 1.020 Urine Protein Negative Urine Glucose (UA) Negative Urine Ketones Negative Urine Occult Blood Negative Urine Nitrate Negative Urine Bilirubin Negative Urine Urobilinogen 0.2 Ur Leukocyte Esterase Negative Urine RBC None seen Urine WBC 0-1/hpf Ur Squamous Epith Cells 0-1 /hpf Urine Bacteria None seen Ur Culture Indicated? Cult not indicated Micro UA Comment Not Reportable Assessment & Plan Plan: Assessment/Plan Narrative: 83-year-old male with chronic urinary incontinence and limited mobility who developed small, kissing stage II upper gluteal cleft ulcers bilaterally after a prolonged episode of unrelieved pressure and moisture exposure to skin while sitting in a wheelchair. He is on an appropriate pressure distributing hospital bed during this admission. His nutrition appears adequate. He appears to have appropriate pressure redistribution seating and sleeping surfaces at home. He has an improving leukocytosis without left shift and a negative workup so far. I do not note any evidence of infection in the ulcer or billy-ulcer areas. Leukocytosis might also be related to recent trauma/fracture/stress hormone response. Plan: Will utilize hydrocolloid dressing to protect ulcer area from further moisture exposure. Place q week and prn (if leaking or becomes unattached). To prepare area for placement, remove zinc based barrier cream with light mineral oil (ordered) applied to a washcloth. Then, remove mineral oil with mild soap and warm water until skin surface is clean. Ordered EHOB waffle wheelchair cushion for pressure redistribution while seated. I would be happy to care for this patient as an outpatient in our wound care clinic. Please make arrangements at discharge, if desired. Thank you for the opportunity to care for this patient. Please call the wound care clinic for further questions/concerns.
--- NOTE | 2018-05-11 17:24 | P.CONS_ITS ---
History of Present Illness Date Patient Seen: 05/11/18 Time Patient Seen: 08:00 Chief complaint: weakness, Stage II Coccyx, bed bound, edema Reason for consult: Pressure ulcer Requesting provider: Kimber Wallis Narrative: Patient is an 83-year-old male with urinary incontinence and limited mobility due to deconditioned state after ORIF to repair a hip fracture in October 2017. He was essentially wheelchair bound and his would help him transfer via gait belt. Around 04/27/18, while trying to stand up out of his wheelchair by himself, he fell and he was eventually diagnosed during this admission with a pubic fracture. He usually wears adult pull-up undergarments and changes them after each urinary incontinence episode. About 1 week ago, he was admitted to an outside hospital in regards to evaluation of L hip and pelvic pain after his fall. He states he spent anywhere from 6 to 8 hours in his wheelchair while waiting in diagnostic imaging. During this time, he was incontinent, resulting in his having to spend a prolonged period in a wet diaper. Shortly thereafter he noted open wounds in the bilateral buttock area. At home, he has an twu-oiz-kbvyf gel wheelchair cushion. He has a memory foam mattress in his bed. [facility] Medical History Fall (Acute) Hypertension (Acute) Right femoral fracture (Acute) Social History household members: spouse Smoking Status: Never smoker alcohol intake: never Meds Home Medications Medication Instructions Recorded Confirmed Type albuterol sulfate 1 puff INHALATION Q4-6H PRN #6.7 09/13/17 05/10/18 Rx gram tamsulosin [Flomax] 0.4 mg PO BEDTIME 09/13/17 05/10/18 History aspirin 162 mg PO QPM 05/10/18 05/10/18 History calcium carb-mag ox-zinc sulf 1 tab PO QAM 05/10/18 05/10/18 History cholecalciferol (vitamin D3) 2,000 unit PO QPM 05/10/18 05/10/18 History [Vitamin D3] donepezil 15 mg PO QPM 05/10/18 05/10/18 History epinephrine [EpiPen 2-Lorenzo] 0.3 ml IM PRN PRN 05/10/18 05/10/18 History fluoxetine 5 mg PO DAILY 05/10/18 05/10/18 History levofloxacin 500 mg PO DAILYX9 05/10/18 05/10/18 History lorazepam 0.25 - 0.5 mg PO BID 05/10/18 05/10/18 History meclizine 25 mg PO BID PRN 05/10/18 05/10/18 History metronidazole 500 mg PO Q8H 05/10/18 05/10/18 History multivitamin 1 tab PO DAILY 05/10/18 05/10/18 History omega 1-boa-fat-fish oil 1,200 mg PO DAILY 05/10/18 05/10/18 History ranitidine HCl 75 mg PO BEDTIME 05/10/18 05/10/18 History ranitidine HCl 150 mg PO QAM 05/10/18 05/10/18 History Allergies Allergy/AdvReac Type Severity Reaction Status Date / Time bee venom protein (honey bee) Allergy Severe Anaphylaxis Verified 05/11/18 15:18 gabapentin AdvReac Intermediate Hallucinati Verified 05/11/18 15:17 ng hydromorphone [From Dilaudid] AdvReac Intermediate Vomiting Verified 05/10/18 14 :29 Review of Systems Constitutional Constitutional: Denies anorexia, Denies chills, Denies excessive sweating, Denies fatigue, Denies fever(s), Denies malaise, Denies poor appetite and Denies weight loss Genitourinary Genitourinary: Reports urinary incontinence Integumentary/Breasts Skin/Breast: Denies erythema, Denies rash, Denies skin pain and Reports skin ulcer (buttock) Endocrine Endocrine: Denies excessive sweating and Denies fatigue Exam Vital Signs (past 8 hours): - 05/11/18 14:13 05/11/18 15:53 Temperature 97.7 F 97.8 F Pulse Rate 81 81 Respiratory Rate 18 17 Blood Pressure 122/58 L 137/72 Pulse Oximetry 97 97 Oxygen Delivery Method Room Air Oxygen Flow Rate 0 Const General: cooperative, well developed and No acute distress Nutritional Appearance: well nourished Orientation: alert and oriented x3 Limitations: physical limitations (difficulty assuming various positions in bed due to pain from pelvic fracture.) HENWV Ears: hearing grossly normal bilaterally Eyes Conjunctivae: conjunctivae normal Sclera: sclerae normal Neck Neck: normal visual inspection Resp Effort & Inspection: normal respiratory effort Cardio Rate: regular rate Rhythm: regular rhythm Skin Wounds: wounds noted (Small open kissing wounds bilateral buttock near the gluteal cleft. Superficial loss of epidermis. Wound bed composed of 100% dermis. Area is noted to be covered with zinc based barrier cream. I do not note any erythema, induration, increased warmth, TTP, or associated drainage.) Neuro General: tone normal, moves all extremities and unable to assess gait Extrem General: normal to inspection and capillary refill normal Right lower extremity: edema Left lower extremity: edema Psych Appearance: grossly normal Mental Status: mental status grossly normal Mood: congruent mood Affect: normal affect Attitude: cooperative Thought Process: normal Thought Content: normal Judgment: judgment good Objective Labs Result Diagrams: 05/11/18 05:35 05/11/18 05:35 Labs: Laboratory Results - last 24 hr 05/10/18 05/11/18 05/11/18 18:25 05:35 05:35 WBC 12.4 H RBC 3.21 L Hgb 10.5 L Hct 31.1 L MCV 97.0 MCH 32.8 MCHC 33.8 RDW 13.9 Plt Count 380 Neut % (Auto) 54.5 Lymph % (Auto) 27.5 [place] % (Auto) 12.2 Eos % (Auto) 5.1 H Baso % (Auto) 0.7 Neut # (Auto) 6800 Sodium 137 Potassium 3.5 Chloride 101 Carbon Dioxide 29 BUN 8 L Creatinine 0.80 Estimated GFR > 60.0 BUN/Creatinine Ratio 10.0 Glucose 89 Calcium 8.4 Phosphorus 3.7 Magnesium 1.8 Total Bilirubin 0.2 AST 25 ALT 23 Alkaline Phosphatase 89 Total Protein 5.7 L Albumin 2.7 L Globulin 3.0 Albumin/Globulin Ratio 0.9 L Urine Color Yellow Urine Appearance Clear Urine pH 7.0 Ur Specific [place] 1.020 Urine Protein Negative Urine Glucose (UA) Negative Urine Ketones Negative Urine Occult Blood Negative Urine Nitrate Negative Urine Bilirubin Negative Urine Urobilinogen 0.2 Ur Leukocyte Esterase Negative Urine RBC None seen Urine WBC 0-1/hpf Ur Squamous Epith Cells 0-1 /hpf Urine Bacteria None seen Ur Culture Indicated? Cult not indicated Micro UA Comment Not Reportable Assessment & Plan Plan: Assessment/Plan Narrative: 83-year-old male with chronic urinary incontinence and limited mobility who developed small, kissing stage II upper gluteal cleft ulcers bilaterally after a prolonged episode of unrelieved pressure and moisture exposure to skin while sitting in a wheelchair. He is on an appropriate pressure distributing hospital bed during this admission. His nutrition appears adequate. He appears to have appropriate pressure redistribution seating and sleeping surfaces at home. He has an improving leukocytosis without left shift and a negative workup so far. I do not note any evidence of infection in the ulcer or billy-ulcer areas. Leukocytosis might also be related to recent trauma/fracture/stress hormone response. Plan: Will utilize hydrocolloid dressing to protect ulcer area from further moisture exposure. Place q week and prn (if leaking or becomes unattached). To prepare area for placement, remove zinc based barrier cream with light mineral oil ( ordered) applied to a washcloth. Then, remove mineral oil with mild soap and warm water until skin surface is clean. Ordered EHOB waffle wheelchair cushion for pressure redistribution while seated. I would be happy to care for this patient as an outpatient in our wound care clinic. Please make arrangements at discharge, if desired. Thank you for the opportunity to care for this patient. Please call the wound care clinic for further questions/concerns.
[2018-05-11] MEDS: SODIUM CHLORIDE 0.9% 250 ML 21 ML IV (19:19)
[2018-05-11] MEDS: CEFTRIAXONE 1 GM/50 ML FROZ.PIGGY IV (19:19)
[2018-05-11] MEDS: SODIUM CHLORIDE 0.9% FLUSH 10 ML IV (19:19)
[2018-05-11] MEDS: FISH OIL 1,000 MG CAPSULE 1000 MG PO (19:24)
--- NOTE | 2018-05-11 21:25 | PC.NURSE ---
SHIFT NOTE Received pt sitting up in chair. pt wanting to return to bed, states pain is tolerable but would feel more comfortable laying down; refused to stay up for dinner. c/o LLE pain with activity, requires 2P max assist for ADLs. pt need encouragement for repositioning every 2 hours. dressing change to sacrum done per Dr. Worthington's instructions. pt will need waffle cushion with up in wheelchair or sitting. bed alarm for safety. call light within reach.
[2018-05-11] MEDS: LORazepam 0.5 MG TABLET PO (22:32)
[2018-05-11] MEDS: ACETAMINOPHEN 325 MG TABLET 650 MG PO (23:01)
[2018-05-12] VITALS (10 sets, daily range): BP systolic 133–148; BP diastolic 71–79; PULSE 74–86; RESP 16–18; TEMP 36.2–36.9; O2SAT 93–97
[2018-05-12] MEDS: metroNIDAZOLE 500 MG TABLET PO (03:26)
[2018-05-12] MEDS: DEXAMETHASONE 4 MG TABLET PO ×3 (05:37→21:32)
[2018-05-12 05:59] LABS: Add Manual Diff / Slide Review NO; Basophils Percent Auto 0.3 % (0-2); Eosinophils Percent Auto 0.1 % (2-4); Hematocrit 33.1 % (41-53); Hemoglobin 11.3 g/dL (13.5-17.5); Lymphocytes Percent Auto 15.1 % (25-40); Mean Corpuscular HGB Conc 34.1 % (30-36); Mean Corpuscular Hemoglobin 32.8 PG (26-34); Mean Corpuscular Volume 96.3 fL (80-100); Monocytes Percent Auto 4.2 % (3-14); Neutrophils Absolute Auto 10700 /uL (1500-7000); Neutrophils Percent Auto 80.3 % (50-75); Platelet Count 463 X10^3/uL (150-400); Red Blood Cell Count 3.44 X10^6/uL (4.5-5.9); Red Cell Distribution Width 14.1 % (11.6-14.8); White Blood Cell Count 13.4 X10^3/uL (4.5-11.0)
[2018-05-12 06:29] LABS: Alanine Aminotransferase 21 IU/L (21-72); Albumin 3.1 g/dL (3.5-5.0); Alkaline Phosphatase 103 U/L (38-126); Aspartate Aminotransferase 22 IU/L (17-59); BUN Creatinine Ratio 18.8 (6-22); Bilirubin Total 0.2 mg/dL (0.2-1.3); Blood Urea Nitrogen 15 mg/dL (9-20); Calcium 8.7 mg/dL (8.4-10.2); Carbon Dioxide 27 mmol/L (22-32); Chloride 100 mmol/L (98-107); Estimated Glomerular Filt Rate > 60.0 mL/min (>60); Globulin 3.2 g/dL (1.7-4.1); Glucose 130 mg/dL (80-110); HEMOLYSIS < 15 (0-50); Potassium 4.4 mmol/L (3.4-5.1); Sodium 136 mmol/L (137-145); Total Protein 6.3 g/dL (6.3-8.2)
--- NOTE | 2018-05-12 08:13 | CM.DPC ---
Addendum entered by EDUARDA Chappell 05/12/18 13:38: ADD: SW received return call from [place] [facility] stating pt has been approved for SNF at [facility] and SW updated her that pt will likely d/c tomorrow and she was agreeable. SHEKHAR called [facility] w/e admissions Misty RN and updated on pt status and gonzalez approval and she confirmed that they can accept the pt tomorrow at 1100 or 1300. SW confirmed that they can have a specialty bed to off load pressure for the pt. SHEKHAR confirmed with hospital RN that pain meds that are working for the pt are Decadron, Tramadol and PRN [place]. SW faxed screen shot of the meds, updated PT/OT notes, Wound Consult note, and completed PASRR to Misty at [facility] to review. Per RN and therapy, pt has been sitting in bedside chair and feel he can safely transport via w/c van across the street. SW met bedside with pt who is alert and oriented and updated on above information and pt confirms that he is still agreeable to d/c plan of [facility]. SW discuss transport option and pt agreeable to w/c van and currently does not feel he would meet criteria for stretcher transport and wishes to avoid possible out of pocket expense for stretcher. Pt requests SW to call and update his as she will not be visiting from [place] today and pt is hopeful spouse can be present tomorrow at transport time and therefore pt requests 1300. SHEKHAR called pt's spouse Kiki and updated on above information and d/c plan and she is agreeable with [facility] at d/c and states she will attempt to be present by 1300 for pt transfer to [facility] but states she will call and talk to the pt about possibly meeting him over at [facility] if she cannot catch a ferry in time. SHEKHAR called [facility] Misty and updated on pt requested time of transport at 1300 and Misty is working on scheduling 1300 transport for tomorrow. SHEKHAR updated MD and RN. Plan: SHEKHAR to follow for likely pt d/c to [facility] tomorrow around 1300 via w/c van, spouse may be present at d/c or might meet pt at [facility] after. [place] has approved SNF. PASRR completed and faxed. Follow for faxing final d/c orders, scripts, and signed med rec at discharge to [facility]. EDUARDA Chappell Original Note: DCP SNF Planning: SHEKHAR faxed Dr. Walker Wound Consult note and OT initial eval and PT note from yesterday 05/11/18 afternoon to be added to the previous initial clinicals sent to [place] yesterday towards review for SNF auth. SW called [place] w/e intake and updated on faxed clinicals for review for SNF auth to [facility]. Plan: SW to follow closely for [place] and [facility] review towards possible placement at SNF at d/c for therapy and wound care needs prior to safe return home. SW to further discuss d/c plan with pt and spouse and provide resources for in-home support for future needs. Jennifer Palomo MSW
[2018-05-12] MEDS: ENOXAPARIN 40 MG/0.4 ML SYRINGE SUBCUT (09:19)
[2018-05-12] MEDS: MULTIVITAMIN 1 TABLET 1 TAB PO (09:19)
[2018-05-12] MEDS: TRAMADOL 50 MG TABLET PO ×2 (09:19→20:36)
[2018-05-12] MEDS: DOXYCYCLINE HYCLATE 100 MG TABLET PO ×2 (09:20→20:36)
[2018-05-12] MEDS: SODIUM CHLORIDE 0.9% FLUSH 10 ML IV ×2 (09:22→20:36)
--- NOTE | 2018-05-12 10:27 | PM.PN.1 ---
Subjective Date Patient Seen: 05/12/18 Time Patient Seen: 07:50 Interval history: PATIENT IS FEELING MUCH BETTER. HE REPORTED THAT HIS PAIN FROM THE FRACTURE IS MUCH BETTER WITH THE CURRENT PAIN MEDICATIONS HE REFUSED THE GABAPENTIN DUE TO PREVIOUS REPORTED SIDE EFFECTS WHICH INCLUDED CONFUSION NO FEVER OR CHILLS OVERNIGHT HE IS HAVING GOOD BOWEL MOVEMENTS SPOKE TO CASE MANAGEMENT AND NURSING REGARDING THE CASE IN DISCHARGE PLANNING Exam Vital Signs (past 8 hours): - 05/12/18 03:34 05/12/18 08:00 Temperature 97.4 F L Pulse Rate 78 Respiratory Rate 17 Blood Pressure 145/77 H Pulse Oximetry 96 97 Oxygen Delivery Method Room Air Oxygen Flow Rate 0 Narrative Exam Narrative: NO ACUTE DISTRESS. PATIENT IS ALERT ORIENTED X3. VITAL SIGNS STABLE HEAD ATRAUMATIC NORMOCEPHALIC NECK : SUPPLE WITHOUT ADENOPATHY NO CAROTID BRUITS EYE: EOMI, PERRLA, NORMAL CONJUNCTIVA; NO JAUNDICE CHEST: REGULAR RATE. NO RUBS. PMI IS NON DISPLACED. ; NORMAL S1-S2 PULMONARY: DECREASED BS OVER THE BASES. BIBASILAR CRACKLES NOTED; NO INCREASED DULLNESS TO PERCUSSION; NO WHEEZING ABDOMEN: SOFT. NON TENDER. NON DISTENDED. BOWEL SOUNDS ARE PRESENT IN ALL 4 QUADRANTS. NO MASS. EXTREMITIES: 3+ EDEMA.. NO CYANOSIS OR CLUBBING NOTED. NEURO: CRANIAL NERVES 2-12 GROSSLY INTACT. NO FOCAL NEUROLOGICAL DEFICIT NOTED. MSK: PAIN WITH ACTIVE AND PASSIVE ROM OF LOWER EXT ANGELICA; NO JOINT EFFUSION SKIN: NORMAL FOR ETHNICITY; NO ECCHYMOSIS. DEC ULCERS TO SACRAL AREA; BUTTOCKS; MILD DRAINAGE; DRESSING IN PLACE : NORMAL EXTERNAL GENITALIA. PSYCH : APPROPRIATE MOOD AND AFFECT. ALERT AWAKE ORIENTED X3 Objective Labs Result Diagrams: 05/12/18 05:32 05/12/18 05:32 Labs: Laboratory Results - last 24 hr 05/12/18 05/12/18 05:32 05:32 WBC 13.4 H RBC 3.44 L Hgb 11.3 L Hct 33.1 L MCV 96.3 MCH 32.8 MCHC 34.1 RDW 14.1 Plt Count 463 H Neut % (Auto) 80.3 H D Lymph % (Auto) 15.1 L Wallace % (Auto) 4.2 Eos % (Auto) 0.1 L Baso % (Auto) 0.3 Neut # (Auto) 12889 H Sodium 136 L Potassium 4.4 Chloride 100 Carbon Dioxide 27 BUN 15 Creatinine 0.80 Estimated GFR > 60.0 BUN/Creatinine Ratio 18.8 Glucose 130 H Calcium 8.7 Total Bilirubin 0.2 AST 22 ALT 21 Alkaline Phosphatase 103 Total Protein 6.3 Albumin 3.1 L Globulin 3.2 Albumin/Globulin Ratio 1.0 Assessment & Plan Plan: Assessment/Plan Narrative: IMPRESSION AND PLAN STATUS POST FALL. THIS APPEARS TO BE DUE TO PHYSICAL DECONDITIONING AMONG OTHER CAUSES. STRICT FALL PRECAUTIONS ORDERED DURING THIS HOSPITAL STAY ; PHYSICAL THERAPY/ OCCUPATIONAL THERAPY ON BOARD; APPEARS IMPROVED CLINICALLY NONDISPLACED PUBIC RAMUS FRACTURE; THIS IS A NONSURGICAL FRACTURE. THIS WILL BE TREATED CONSERVATIVELY. PT / OT WORKING WITH PT WHILE IN HOUSE. CONTINUE CURRENT PAIN MEDS FOR OPTIMAL PAIN MANAGEMENT. CONSIDER BRACE INDICATED LEUKOCYTOSIS. NO S/S OF INFECTIOUS PROCESS FOUND IN W/U; UA/ CXR NEG; AND NO FEVER REPORTED; HOWEVER, THIS COULD BE RELATED TO HIS DECUB ULCERS VS ACUTE REACTANT WELL STEROIDS; FOLLOW CLOSELY; DAILY CBC; START ON PO DOXY X 3 DAYS ONLY FOR NOW. ANEMIA. MOST LIKELY OF CHRONIC DISEASE. CONT TO MONITOR FOR NOW. THROMBOCYTOSIS. RESOLVED HYPERTENSION PER HISTORY. PATIENT WILL BE RESTARTED ON HIS HOME MEDICATION INDICATED SACRAL DECUBITUS ULCER. THIS WAS PRESENT ON ARRIVAL. PATIENT REFERRED TO WOUND CARE TEAM AND ASSISTANCE NOTED AND APPRECIATED. PATIENT IS ON A PRESSURE REDUCING MATTRESS. PATIENT WILL NEED TO BE TURNED EVERY 2 HRS; WILL ADD DOXY; ADDITIONAL MANAGEMENT INDICATED DC PER CLINICAL COURSE WHEN STABLE;LIKELY IN 1-2 DAYS AWAITING PLACEMENT Quality VTE Deep Vein Thrombosis/Pulmonary Embolism Present on Admission: No
--- NOTE | 2018-05-12 10:55 | PT.IPTN ---
Physical Therapy Treatment Note M2 PT-IP Current Condition Start: 05/11/18 13:32 Freq: NEEDED Status: Active Protocol: Document 05/11/18 10:20 AB (Rec: 05/11/18 13:59 AB [id number]) Physical Therapy Current Condition Current Condition Evaluation Date 05/11/18 Treatment Diagnosis L inf pubic ramus fx; difficulty in walking Onset Date 05/10/18 Weight Bearing Status Weight Bearing Status Weight Bear as Tolerated M3 PT-IP Subjective Start: 05/11/18 13:32 Freq: NEEDED Status: Active Protocol: Document 05/12/18 10:55 GGD (Rec: 05/12/18 11:29 GGD [email or web address]) Subjective Physical Therapy Visit Type Type Treatment Note Visit Start Time 10:30 Visit Stop Time 10:55 Total Visit Minutes 25 Number of IN HOME SALES CONSULTANT Visits 1 Physical Therapy Visit Comments Patient Comments Pt willing to get up. Therapy Pain Assessment Pain When Pain Assessed At Rest Pain Present Pain Present Pain Reported M4 PT-IP Mobility and Gait Start: 05/11/18 13:32 Freq: NEEDED Status: Active Protocol: Document 05/12/18 10:55 GGD (Rec: 05/12/18 11:29 GGD [email or web address]) PT-Bed Mobility Assessment Rolling Type of Rolling Log Rolling Level of Assist Maximal Assistance 2 Person Assistance Supine to Sit Supine to Sit Maximum Assistance 2 Person Assistance Scooting Scooting to Edge of Bed Standby Assistance PT-Transfer Assessment Sit to and From Stand Sit to and from Stand Contact Guard Assistance 1 Person Assistance Use of Upper Extremities Equipment Transfer Assistive Device Gait Belt Front Wheeled Walker Orthotic/Prosthetic Devices or Brace: No Transfers Transfer Destination Chair Transfer Ability Level of Assist Contact Guard Assistance 1 Person Assistance Use of Upper Extremities Gait Assessment Gait Gait Assistance Required: Contact Guard Assist 1 Person Assist Distance (Feet) 15 Able to Maintain Weight Bearing Status Yes During Gait Assistive Devices Assistive Device Gait Belt Front Wheeled Walker Orthotic/Prosthetic Devices or Brace: No Gait Deviations General Gait Pattern Ataxic Decreased Stride Length Decreased Feet Clearance Flexed Trunk Factors Limiting Gait Function Factors Limiting Gait Function Decreased Activity Tolerance Decreased Strength Limited Range of Motion Pain M5 PT-IP Objective Assessments Start: 05/11/18 13:32 Freq: NEEDED Status: Active Protocol: Document 05/11/18 10:20 AB (Rec: 05/11/18 13:59 AB [id number]) Orientation Orientation/Cognition Level of Alertness Alert Orientation Name Place Situation Safety Awareness Decreased Safety Awareness Memory Description Short Term Impaired Longterm Impaired Gross Range of Motion Lower Extremity ROM Assessment Within Functional Limits Strength Lower Extremity Strength Assessment Left Impaired Hip 3-/5 Knee 3-/5 Sensation Assessment Sensation Gross Sensation WNL Muscle Tone Muscle Tone WNL Yes M6 PT-IP Treatment Start: 05/11/18 13:32 Freq: NEEDED Status: Active Protocol: Document 05/11/18 14:37 AB (Rec: 05/11/18 15:15 AB [id number]) Physical Therapy Treatment Education Education Provided Safety M7 PT-IP Assessment and Plan Start: 05/11/18 13:32 Freq: NEEDED Status: Active Protocol: Document 05/12/18 10:55 GGD (Rec: 05/12/18 11:29 GGD [email or web address]) PT Summary Assessment and Plan Summary Assessment Summary Pt is 2 person assist for bed mobility and increase in C/O pain. He need less assist for sit to stand and gait. He was safe with transfer to chair and controlled sit to chair. Pt will need SNF rehab to improve mobility. Frequency of Treatment Frequency Of Treatment Twice a Day Treatment Plan Physical Therapy Treatment Plan Bed Mobility Training Transfer Training Gait Training Therapeutic Exercise Balance Retraining Discharge Planning Hot or Cold Pack Neuromuscular Re-ed Coordination Retraining Manual Therapy Other Recommendations and Next Treatment transfers Focus Recommendations To Nursing Amount of Assist Needed 1 Person Assist 2 Person Assist Discharge Recommendations PT Discharge Recommendations SNF Rehab
--- NOTE | 2018-05-12 12:41 | PC.NURSE ---
Day Shift- Hydrocolloid dressing was folding on it self and had small amount of BM material on it. Pt assisted back to bed slowly with 2PA from Chair. Gluteal fold/coccyx area cleansed with soap and warm water, pat dry and Duoderm dressing cut to size to place over Left wound area that has approx meredith size skin loss, surrounding area is dry and pink/red, no drainage. pt tolerated well.
--- NOTE | 2018-05-12 15:45 | PT.IPTN ---
Physical Therapy Treatment Note M2 PT-IP Current Condition Start: 05/11/18 13:32 Freq: NEEDED Status: Active Protocol: Document 05/11/18 10:20 AB (Rec: 05/11/18 13:59 AB [id number]) Physical Therapy Current Condition Current Condition Evaluation Date 05/11/18 Treatment Diagnosis L inf pubic ramus fx; difficulty in walking Onset Date 05/10/18 Weight Bearing Status Weight Bearing Status Weight Bear as Tolerated M3 PT-IP Subjective Start: 05/11/18 13:32 Freq: NEEDED Status: Active Protocol: Document 05/12/18 15:35 GGD (Rec: 05/12/18 15:45 GGD [email or web address]) Subjective Physical Therapy Visit Type Type Treatment Note Visit Start Time 15:10 Visit Stop Time 15:35 Total Visit Minutes 25 Number of GROUND INSTRUCTOR ADVANCED Visits 2 Physical Therapy Visit Comments Patient Comments Pt wants to walk. Therapy Pain Assessment Pain When Pain Assessed At Rest Pain Present Pain Present Pain Reported M4 PT-IP Mobility and Gait Start: 05/11/18 13:32 Freq: NEEDED Status: Active Protocol: Document 05/12/18 15:35 GGD (Rec: 05/12/18 15:45 GGD [email or web address]) PT-Bed Mobility Assessment Rolling Type of Rolling Log Rolling Level of Assist Moderate Assistance 1 Person Assistance Supine to Sit Supine to Sit Moderate Assistance Maximum Assistance 2 Person Assistance Bedrails Scooting Scooting to Edge of Bed Standby Assistance PT-Transfer Assessment Sit to and From Stand Sit to and from Stand Contact Guard Assistance 1 Person Assistance Use of Upper Extremities Equipment Transfer Assistive Device Gait Belt Front Wheeled Walker Orthotic/Prosthetic Devices or Brace: No Transfers Transfer Destination Chair Transfer Ability Level of Assist Contact Guard Assistance 1 Person Assistance Use of Upper Extremities Gait Assessment Gait Gait Assistance Required: Contact Guard Assist 1 Person Assist Distance (Feet) 25 Able to Maintain Weight Bearing Status Yes During Gait Assistive Devices Assistive Device Gait Belt Front Wheeled Walker Orthotic/Prosthetic Devices or Brace: No Gait Deviations General Gait Pattern Ataxic Decreased Stride Length Decreased Feet Clearance Flexed Trunk Factors Limiting Gait Function Factors Limiting Gait Function Decreased Activity Tolerance Decreased Strength Limited Range of Motion Pain Comments Gait Comments Pt needed Close CGA for gait, with mild unsteadiness, but no LOB. M5 PT-IP Objective Assessments Start: 05/11/18 13:32 Freq: NEEDED Status: Active Protocol: Document 05/11/18 10:20 AB (Rec: 05/11/18 13:59 AB [id number]) Orientation Orientation/Cognition Level of Alertness Alert Orientation Name Place Situation Safety Awareness Decreased Safety Awareness Memory Description Short Term Impaired Truck Driver'S Offsider Impaired Gross Range of Motion Lower Extremity ROM Assessment Within Functional Limits Strength Lower Extremity Strength Assessment Left Impaired Hip 3-/5 Knee 3-/5 Sensation Assessment Sensation Gross Sensation WNL Muscle Tone Muscle Tone WNL Yes M6 PT-IP Treatment Start: 05/11/18 13:32 Freq: NEEDED Status: Active Protocol: Document 05/11/18 14:37 AB (Rec: 05/11/18 15:15 AB [id number]) Physical Therapy Treatment Education Education Provided Safety M7 PT-IP Assessment and Plan Start: 05/11/18 13:32 Freq: NEEDED Status: Active Protocol: Document 05/12/18 15:35 GGD (Rec: 05/12/18 15:45 GGD [email or web address]) PT Summary Assessment and Plan Summary Assessment Summary Pt needs 2 person assist for bed mobility. He did need less assist for rolling in bed and was a mod A x 1. He was able to progress gait distance, but had mild unsteadiness and fatigued. Frequency of Treatment Frequency Of Treatment Twice a Day Treatment Plan Physical Therapy Treatment Plan Bed Mobility Training Transfer Training Gait Training Therapeutic Exercise Balance Retraining Discharge Planning Hot or Cold Pack Neuromuscular Re-ed Coordination Retraining Manual Therapy Other Recommendations and Next Treatment transfers Focus Recommendations To Nursing Amount of Assist Needed 1 Person Assist 2 Person Assist Discharge Recommendations PT Discharge Recommendations SNF Rehab
--- NOTE | 2018-05-12 16:13 | OT.IP.TRT ---
Occupational Therapy Treatment Note M2 OT-IP Current Condition Start: 05/11/18 16:41 Freq: Status: Active Protocol: Document 05/11/18 14:40 PJM (Rec: 05/11/18 17:01 PJM [email or web address]) Occupational Therapy Current Condition Current Condition Evaluation Date 05/11/18 Treatment Diagnosis decreased self care, mobility s/p L pelvic fx from GLF(non surgical) Diagnosis Onset Date 05/10/18 Post Operative Precautions Other Precautions fall risk Weight Bearing Status Weight Bearing Status Weight Bear as Tolerated Allowed Weight Bearing Amount (enter % LLE or #) (%) M3 OT- IP Subjective and Pain Start: 05/11/18 16:41 Freq: Status: Active Protocol: Document 05/12/18 16:13 PJM (Rec: 05/12/18 16:40 PJM [id number]) OT- Subjective Occupational Therapy Visit Type Type Treatment Note Visit Start Time 15:50 Visit Stop Time 16:13 Total Visit Minutes 23 Notes Pt up in recliner after P.T. session; agreeable to tx. Occupational Therapy Visit Comments Patient Comments I am doing better today, but this L hip area still hurts when I move. Patient/Caregiver Goals to go to rehab to get stronger and steadier before returning home OT Pain Assessment Pain When Pain Assessed After Treatment Pain Present Pain Present Pain Reported Location Left Hip Intensity 2 Description Aching Acute Pain Behaviors Guarding Wincing Management Techniques Distraction Re-positioning Timing of Activity with Medications M4 OT- IP ADL's Start: 05/11/18 16:41 Freq: Status: Active Protocol: Document 05/12/18 16:13 PJM (Rec: 05/12/18 16:40 PJM [id number]) OT ADL-Dressing General Eval Lower Body Dressing Ability Moderate Assistance Areas Needing Assistance Underpants/Brief Socks Comments OT Dressing Comments Practiced donning and doffing socks with continuity manager and sock aid which requires mod assist and min verbal cues. Practiced donning brief with continuity manager to knees. OT ADL-Toileting General Evaluation Toileting Ability Moderate Assistance Devices Toileting Assistive Devices Urinal Comments OT Toileting Comments seated in chair or bed; needs assist for positioning urinal; to bring in pull up briefs from home for use at rehab facility OT ADL-Bathing Bathing Type Bathing Type Bed Bath General Evaluation Bathing Ability Maximal Assistance Comments OT Bathing Comments by nursing staff M5 OT- IP IADL's Start: 05/11/18 16:41 Freq: Status: Active Protocol: Document 05/11/18 14:40 PJM (Rec: 05/11/18 17:01 PJ [email or web address]) OT-Instrumental Activities of Daily Living Deficits IADL Deficits Identified Deficits Home Safety Awareness Awareness of Need for Assistance at Home Good Awareness Ability to Problem Solve Emergency Able to Problem Solve Situations Medication Management Medication Management Caregiver Provides Supervision Medication Management Comments assists with all IADLS at home Money Management Money Management Caregiver Provides Assistance Meal Preparation Meal Preparation Caregiver Provides Assist Associate Faculty Associate Faculty Caregiver Provides Assist Driving Driving Caregiver Provides Assist M6 OT- IP Functional Cognition Start: 05/11/18 16:41 Freq: Status: Active Protocol: Document 05/12/18 16:13 PJM (Rec: 05/12/18 16:40 PJM [id number]) Cognitive Factors Limiting Selfcare Function Cognitive Ability Level of Alertness Alert Attention Span Ability Capable of Focused Attention Ability to Follow Commands Able to Follow One Step Commands Cognitive Comments Cognitive Assessment Comments Pt more alert today with faster speed of processing; appears less sedated. Pt familiar with use of adaptive equipment from previous hospitalizations. M7 OT- IP Mobility and Balance Start: 05/11/18 16:41 Freq: Status: Active Protocol: Document 05/11/18 14:40 PJM (Rec: 05/11/18 17:01 PJ [email or web address]) OT-Transfer Assessment Comments Mobility Comments See P.T. notes OT- Gait Assessment Comments Gait Ability Comments See P.T. notes OT- Balance Assessment Comments Other Balance Tests/Deviations/Treatment See P.T. notes : M8 OT- IP Objective Assessments Start: 05/11/18 16:41 Freq: Status: Active Protocol: Document 05/11/18 14:40 PJM (Rec: 05/11/18 17:01 PJ [email or web address]) OT Gross Range of Motion Upper Extremity Range of Motion Assessment Within Functional Limits OT Strength Upper Extremity Strength Assessment Within Functional Limits Comments Strength Comments deconditioned but WFL for basic self care OT- Coordination Assessment Comments Coordination Comments BUE WFL OT-Muscle Tone Assessment Muscle Tone WNL Yes OT Sensation Assessment Comments Summary Comments BUE WNL per pt M9 OT- IP Assessment and Plan Start: 05/11/18 16:41 Freq: Status: Active Protocol: Document 05/12/18 16:13 PJM (Rec: 05/12/18 16:40 PJM [id number]) OT Summary Assessment and Plan Potential Rehabilitation Potential Good Summary OT Impairments Strength Balance Functional Mobility Grooming Dressing Toileting Bathing Toilet Transfers Shower Transfers Progress Towards Goals Progressing Toward Goals Assessment Summary Pt more alert today and making daily progress with participation in self care tasks and functional mobility. He still needs mod assist with lower body dressing and urinal use and still needs assist of 2 for bed mobility per discussion with P.T. Per top case assembler notes, pt has been approved for transfer to [facility] tomorrow for further rehab services. Goals Grooming Goal Minimal Assistance Dressing Goal Minimal Assistance Long Handled Shoe Horn Chorus Master Sock Aid Toileting Goal Moderate Assistance Bathing Goal Minimal Assistance Toilet Transfer Goal Minimal Assistance Bedside Commode Patient/Caregiver Education Goal Demonstrate Energy Conservation and Pacing OT-Other Goals Grooming to be done standing at sink or seated in chair by sink. Bathing goal is for seated upper body sponge bath. Days to Meet Goals 5 Frequency of Treatment Frequency Of Treatment Once a Day Treatment Plan OT Treatment Plan ADL Training Functional Mobility Patient/Family Education Discharge Planning Discharge Recommendations OT Discharge Recommendations SNF Rehab
[2018-05-12] MEDS: CHOLECALCIFEROL (VITAMIN D3) 1,000 UNIT TABLET 2000 UNIT PO (17:17)
[2018-05-12] MEDS: DONEPEZIL 5 MG TABLET 15 MG PO (17:17)
[2018-05-12] MEDS: FISH OIL 1,000 MG CAPSULE 1000 MG PO (17:17)
[2018-05-12] MEDS: ASPIRIN EC 81 MG TABLET 162 MG PO (17:17)
--- NOTE | 2018-05-12 18:17 | PC.NURSE ---
Addendum entered by Porsche Couch R.N. 05/12/18 20:14: Patient reports the following concerns to this RN: - patient states he is not ready for discharge tomorrow, would like to stay 1 or 2 more days and to keep receiving wound treatment here. - patient reports he has been seeing flashes of bright light every so often, since his fall (when asked if he hit his head, he said he didn't know. This RN assessed head for injury and found no open or red areas) but does not remember precisely when. - Patient would like to speak to Care Management concerning his discharge time/date and whether it is a Medicare policy for him to be discharged before his sores have fully healed (per this RN: sores to buttocks are erythemic and macerated, but there does not appear to be any drainage or odor present at this time). - Patient would like to see the wound care doctor one more time before his discharge please. - Patient reports he has congestion in his chest. When asked how long he's had it, he states since his admission here. He reports he had been coughing and swallowing sputum. He reports his cough is intermittent. (per this RN: patient was assessed at beginning of shift and lung sounds were clear, patient reported no cough, and was not observed coughing. This RN assessed patient again when concerns were reported, this RN assessed patient's lungs to still sound clear bilaterally). This RN made sure patient is comfortable and has call light in reach. This RN encouraged patient to bring up concerns with his doctor in the morning as well. This RN will pass on information in bedside shift report. Original Note: This RN applied hydrocolloid dressing to right buttock/gluteal cleft of patient after washing with normal saline and patting dry with gauze. Previous shift has already applied small hydrocolloid dressing to ulcer wound on left buttock. Skin looks erythemic, non-blanching, and surrounding skin is peeling/macerated. Patient refused pain medications at this time, stating his pain was 3/10 and bearable even during dressing application. Patient states he is comfortable, call light within reach, BA active.
[2018-05-12] MEDS: SENNOSIDES 8.6 MG TABLET PO (20:36)
[2018-05-13] VITALS (9 sets, daily range): BP systolic 131–148; BP diastolic 65–73; PULSE 72–80; RESP 15–18; TEMP 36.4–37.1; O2SAT 96–99
--- NOTE | 2018-05-13 | DI.CT.S_ITS ---
PROCEDURE: CT CHEST WO CON INDICATIONS: COUGH; R/O PNA VS OTHERS TECHNIQUE: Noncontrast 5 mm thick sections acquired from the pulmonary apices to the posterior costophrenic angles. 7 mm thick coronal and sagittal MIP reformats were then acquired. For radiation dose reduction, the following was used: automated exposure control, adjustment of mA and/or kV according to patient size. COMPARISON: [facility], CT, CT PEL WO CON, 05/10/2018, 15:24. [facility], CT, CT ABDOMEN PELVIS WITH CONTRAST, 05/02/2018, 14:40. [facility], CT, CT HEAD/BRAIN WO CON, 10/31/2017, 20:07. [facility], CT, CT ANGIO CHEST PE PROTOCOL, 09/13/2017, 14:55. FINDINGS: Image quality: Excellent. Lungs and pleura: 4 mm right middle pulmonary nodule on axial image 35 of series 3. 2 mm left lower lobe pulmonary nodule on axial image 31 of series 3. Mild right posterior pleural thickening. No pleural effusions or pneumothorax. Central and peripheral airways are patent and normal in caliber. Mediastinum: Heart size is normal. No pericardial effusion. No mediastinal adenopathy by size criteria. Thoracic aorta and central pulmonary arteries are normal in size. Esophagus is normal in caliber. No hiatal hernia. There is a 1.1 cm thyroid isthmus nodule. Bones and chest wall: Mild multilevel degenerative changes of the spine. There is minimal anterior wedging of the L1 vertebral body, which is also likely secondary to chronic degenerative change. No axillary or supraclavicular adenopathy by size criteria. Acute posterolateral eighth and ninth rib fractures. Chronic-appearing posterior left ninth rib fracture. Abdomen: Cholelithiasis. Colonic diverticulosis without evidence of acute diverticulitis. IMPRESSION: 1. Acute posterolateral right eighth and ninth rib fractures. 2. Small bilateral pulmonary nodules measuring up to 4 mm in greatest diameter. Consider followup CT of the chest in 12 months if the patient has risk factors for the development of lung malignancy. 3. 1.1 cm thyroid isthmus nodule. Consider followup outpatient thyroid ultrasound if there is continued clinical concern. 4. Additional findings as described above, including cholelithiasis and colonic diverticulosis. Dictated by: Damon Crews M.D. on 05/13/2018 at 17:50 Approved by: Damon Crews M.D. on 05/13/2018 at 18:05
[2018-05-13] MEDS: DEXAMETHASONE 4 MG TABLET PO ×3 (05:56→21:35)
[2018-05-13 05:57] LABS: Add Manual Diff / Slide Review NO; Basophils Percent Auto 0.1 % (0-2); Hematocrit 32.8 % (41-53); Hemoglobin 11.1 g/dL (13.5-17.5); Lymphocytes Percent Auto 12.6 % (25-40); Mean Corpuscular HGB Conc 33.9 % (30-36); Mean Corpuscular Hemoglobin 32.8 PG (26-34); Mean Corpuscular Volume 96.8 fL (80-100); Monocytes Percent Auto 4.8 % (3-14); Neutrophils Absolute Auto 14000 /uL (1500-7000); Neutrophils Percent Auto 82.5 % (50-75); Platelet Count 476 X10^3/uL (150-400); Red Blood Cell Count 3.39 X10^6/uL (4.5-5.9); Red Cell Distribution Width 13.9 % (11.6-14.8)
[2018-05-13 06:09] LABS: Alanine Aminotransferase 22 IU/L (21-72); Albumin 2.9 g/dL (3.5-5.0); Alkaline Phosphatase 98 U/L (38-126); Aspartate Aminotransferase 16 IU/L (17-59); Bilirubin Total 0.2 mg/dL (0.2-1.3); Blood Urea Nitrogen 21 mg/dL (9-20); Calcium 8.7 mg/dL (8.4-10.2); Carbon Dioxide 27 mmol/L (22-32); Chloride 101 mmol/L (98-107); Estimated Glomerular Filt Rate > 60.0 mL/min (>60); Glucose 115 mg/dL (80-110); HEMOLYSIS < 15 (0-50); Potassium 4.4 mmol/L (3.4-5.1); Sodium 134 mmol/L (137-145); Total Protein 5.9 g/dL (6.3-8.2)
--- NOTE | 2018-05-13 06:10 | PC.NURSE ---
MARLYN Mathews informed of pts. increased WBC of 17.
[2018-05-13] MEDS: DOXYCYCLINE HYCLATE 100 MG TABLET PO ×2 (08:54→21:32)
[2018-05-13] MEDS: AMOXICILLIN/CLAV 875/125 MG 1 TAB PO ×2 (08:54→21:32)
[2018-05-13] MEDS: ENOXAPARIN 40 MG/0.4 ML SYRINGE SUBCUT (08:54)
[2018-05-13] MEDS: BENZONATATE 100 MG CAPSULE PO ×3 (08:54→21:32)
--- NOTE | 2018-05-13 08:56 | PM.DS.1 ---
History of Present Illness Chief complaint: weakness, Stage II Coccyx, bed bound, edema Narrative: THIS IS A 83-YEAR-OLD MALE WHICH WAS RECENTLY IN THE HOSPITAL IN OCTOBER AFTER A HIP FRACTURE. HE WAS SEEN BY ORTHOPEDIC SURGERY DURING THAT STAY, HE WAS TAKEN TO THE OR AND HIS HIP FRACTURE WAS REPAIRED. AT THAT TIME, HE DID NOT WANT TO GO TO A USP FACILITY. HE HAS BEEN IN HIS USUAL STATE OF HEALTH. HOWEVER TODAY HE STATED THAT HE WAS TRYING TO PUT UP AN OBJECT IN HIS KITCHEN. HE STOOD UP OUT OF HIS WHEELCHAIR WHICH SHE HAS BEEN USING SINCE OCTOBER AND FELL. HE HAS A NONDISPLACED PUBIC FRACTURE. HE ALSO HAD A SIGNIFICANTLY ELEVATED WHITE BLOOD CELL COUNT HE REPORTED SOME PAIN ON THE HIP AND PELVIC AREA. HE DENIED ANY CHEST PAIN OR SHORTNESS OF BREATH. HE DENIES SYNCOPAL OR PRESYNCOPAL EPISODE. HE DENIED NAUSEA AND VOMITING. NO BLURRY VISION. NO MIGRAINE OR HEADACHES. NO DIARRHEA OR CONSTIPATION. HE REPORTED SOME SWELLING TO THE LOWER EXTREMITIES. HE HAD NO OTHER COMPLAINTS AT THIS TIME REVIEW OF SYSTEM Discharge Providers Date of admission: 05/10/18 17:06 Primary care physician: Luis Daniel Varghese MD Consults: 05/10/18 17:22 Consult to Discharge Planning Routine Comment: Consult to Occupational Therapy Evaluate & Treat Comment: Physician Instructions: Evaluate and treat Consult to Physical Therapy Evaluate & Treat Comment: Physician Instructions: Evaluate and Treat Consult to Photoflash Powder Mixer Routine Comment: 05/10/18 18:05 Consult to Dietitian, Adult Routine Comment: Reason For Exam: assessed at risk Consult to Photof[employer] Powder Mixer Routine Comment: 05/10/18 18:43 Consult to Wound Care Routine Comment: Consulting Provider: [facility] Discharge provider: Kimber Wallis DO Discharge Date: 05/15/18 Summary Discharge Diagnosis: IMPRESSION AND PLAN STATUS POST FALL. DUE TO PHYSICAL DECONDITIONING. WE WILL CONTINUE CURRENT MANAGEMENT; PHYSICAL THERAPY AND OCCUPATIONAL THERAPY NONDISPLACED PUBIC RAMUS FRACTURE; NONSURGICAL MANAGEMENT. PAIN MANAGEMENT WITH STEROIDS AND OPIOID /NON OPIOIDS MEDICATIONS; BRACE TO BE ORDERED INDICATED LEUKOCYTOSIS. DUE UNDERLYING BRONCHITIS IN ASSOCIATION WITH ACUTE REACTANT FROM THE STEROIDS CAUSING THE INCREASED WBC; POSSIBLE BRONCHITIS. CT CHEST RULED OUT PNEUMONIA. PATIENT IS ON ANTIBIOTICS. DUONEB TREATMENTS ORDERED. LUNG NODULE; INCIDENTAL FINDING; REPEAT CT IN 12 MONTHS PER RECOMENDATION; WILL DEFER TO OUTPATIENT PROVIDERS THYROID NODULE; OUTPATIENT MANAGEMENT CHOLELITHIASIS; OUTPATIENT MANAGEMENT ANEMIA. MOST LIKELY OF CHRONIC DISEASE. CONT TO MONITOR FOR NOW. THROMBOCYTOSIS. IMPROVING; THERE IS NO OTHER TREATMENT RECOMMENDED HYPERTENSION PER HISTORY. HOME MEDICATION SACRAL DECUBITUS ULCER. COLLOID DRESSING WEEKLY HYPONATREMIA. THIS IS MILD IN NATURE. RESTRICT FLUID INDICATED HYPERGLYCEMIA. LIKELY RELATED TO STEROIDS. Hospital Course: PATIENT ADMITTED TO THE HOSPITAL AFTER A FALL. THIS WAS LIKELY DUE TO PHYSICAL DECONDITIONING. PATIENT SUSTAINED A NONDISPLACED PUBIC RAMUS FRACTURE; ORTHOPEDIC SURGERY DID NOT SEE ANY NEED FOR ANY SURGICAL INTERVENTION. PATIENT WAS REFERRED TO PHYSICAL THERAPY AND OCCUPATIONAL THERAPY. HOWEVER HE WILL NEED FURTHER PHYSICAL THERAPY. FOR THIS REASON WILL BE REFERRED TO USP FACILITY; HE IS ALSO HIGH RISK FOR FALL. HE ALSO REPORTED SOME COUGH WITH SOME SPUTUM PRODUCTION. HE WAS STARTED ANTIBIOTICS OF DOXYCYCLINE ORDERED. HIS SYMPTOMS APPEAR TO BE IMPROVING. PATIENT WAS ALSO STARTED ON STEROIDS DUE TO THE PELVIC PAIN. WE SUSPECT THIS IS CONTRIBUTING TO HIS ELEVATED WBC. CHEST X-RAY WAS NEGATIVE FOR ANY ACUTE PNEUMONIA. UA WAS NEGATIVE FOR ANY UTI WELL. A TAPERED DOSE OF STEROID WILL BE ALSO ORDERED. PATIENT WILL NEED TO BE ON A SPECIALTY BED TO PREVENT DECUBITUS ALSO HAS E DOES HAVE SOME SKIN BREAKDOWN ON THE SACRAL AREA. THIS WAS PRESENT ON ARRIVAL AND PATIENT WAS REFERRED TO WOUND CARE. WOUND CARE ORDERS WERE PLACED ON THE CHART A DISPLACED 7 TO BE STABLE. HE WILL BE DISCHARGED ON ORAL ANTIBIOTIC FOR THE NEXT 5 DAYS Status at Discharge Cognitive/behavioral status at discharge: STABLE TO USP FACILITY Functional status at discharge: bed bound Overall status at discharge: patient is progressing back to baseline Time Spent with Patient Greater than 30 minutes Exam Vital Signs (past 8 hours): - 05/13/18 04:00 05/13/18 07:00 Temperature 97.5 F L 97.6 F Pulse Rate 74 72 Respiratory Rate 18 18 Blood Pressure 142/73 H 141/67 H Pulse Oximetry 98 96 Oxygen Delivery Method Room Air Oxygen Flow Rate 0 Narrative Exam Narrative: NO ACUTE DISTRESS. PATIENT IS ALERT ORIENTED X3. VITAL SIGNS STABLE HEAD ATRAUMATIC NORMOCEPHALIC NECK : SUPPLE WITHOUT ADENOPATHY NO CAROTID BRUITS EYE: EOMI, PERRLA, NORMAL CONJUNCTIVA; NO JAUNDICE CHEST: REGULAR RATE. NO RUBS. PMI IS NON DISPLACED. ; NORMAL S1-S2 PULMONARY: DECREASED BS OVER THE BASES. BIBASILAR CRACKLES NOTED; NO INCREASED DULLNESS TO PERCUSSION; NO WHEEZING ABDOMEN: SOFT. NON TENDER. NON DISTENDED. BOWEL SOUNDS ARE PRESENT IN ALL 4 QUADRANTS. NO MASS. EXTREMITIES: 3+ EDEMA.. NO CYANOSIS OR CLUBBING NOTED. NEURO: CRANIAL NERVES 2-12 GROSSLY INTACT. NO FOCAL NEUROLOGICAL DEFICIT NOTED. MSK: PAIN WITH ACTIVE AND PASSIVE ROM OF LOWER EXT ANGELICA; NO JOINT EFFUSION SKIN: NORMAL FOR ETHNICITY; NO ECCHYMOSIS. DEC ULCERS TO SACRAL AREA; BUTTOCKS; MILD DRAINAGE; DRESSING IN PLACE : NORMAL EXTERNAL GENITALIA. PSYCH : APPROPRIATE MOOD AND AFFECT. ALERT AWAKE ORIENTED X3 Objective Labs Result Diagrams: 05/15/18 05:14 05/15/18 05:14 Labs: Laboratory Results - last 24 hr 05/13/18 05/13/18 05:33 05:33 WBC 17.0 H RBC 3.39 L Hgb 11.1 L Hct 32.8 L MCV 96.8 MCH 32.8 MCHC 33.9 RDW 13.9 Plt Count 476 H Neut % (Auto) 82.5 H Lymph % (Auto) 12.6 L [place] % (Auto) 4.8 Eos % (Auto) 0.0 L Baso % (Auto) 0.1 Neut # (Auto) 29844 H Sodium 134 L Potassium 4.4 Chloride 101 Carbon Dioxide 27 BUN 21 H Creatinine 0.70 Estimated GFR > 60.0 BUN/Creatinine Ratio 30.0 H Glucose 115 H Calcium 8.7 Total Bilirubin 0.2 AST 16 L ALT 22 Alkaline Phosphatase 98 Total Protein 5.9 L Albumin 2.9 L Globulin 3.0 Albumin/Globulin Ratio 1.0 Discharge Plan Discharge Plan Patient Disposition: SNF Transportation: Facility vehicle I certify the [facility]op [facility] care is medically necessary on a continuing basis for any conditions for which he/ she received care during this hospitalization.: Yes The receiving facility has agreed to accept transfer and provide medical treatment.: Yes Discharge Med Rec/Prescriptions Prescriptions: New sennosides [senna] 8.6 mg Tablet 8.6 mg PO BEDTIME 30 Days RF: 0 polyethylene glycol 3350 17 gram Powder In Packet 17 gm PO DAILY 30 Days RF: 0 hydrocodone-acetaminophen 5-325 mg Tablet 1 tab PO Q4HR PRN (Reason: Pain, Moderate (4-6)) Qty: 30 RF: 0 tramadol 50 mg Tablet 50 mg PO BID Qty: 40 RF: 0 benzonatate 100 mg Capsule 100 mg PO TID 7 Days Qty: 21 RF: 0 doxycycline hyclate 100 mg Tablet 100 mg PO BID 7 Days Qty: 14 RF: 0 enoxaparin [Lovenox] 40 mg/0.4 mL Syringe 40 mg subcut DAILY 14 Days RF: 0 ipratropium-albuterol 0.5 mg-3 mg(2.5 mg base)/3 mL solution for nebulization 3 ml INHALATION Q6-8H PRN (Reason: SOB/ WHEEZING ) Qty: 90 RF: 0 prednisolone sodium phosphate 10 mg tablet,disintegrating 10 mg PO DIRECTED Qty: 30 RF: 0 lorazepam 0.5 mg Tablet 0.5 mg PO BID Qty: 20 RF: 0 Continue donepezil 10 mg Tablet 15 mg PO QPM RF: 0 fluoxetine 10 mg Tablet 5 mg PO DAILY RF: 0 aspirin 81 mg Tablet,Delayed Release (Dr/Ec) 162 mg PO QPM RF: 0 meclizine 25 mg Tablet 25 mg PO BID PRN (Reason: Vertigo) RF: 0 epinephrine [EpiPen 2-Lorenzo] 0.3 mg/0.3 mL Auto-Injector 0.3 ml IM PRN PRN (Reason: Anaphylaxis) RF: 0 omega 5-vkg-aog-fish oil 1,200 (144-216) mg Capsule 1,200 mg PO DAILY RF: 0 multivitamin Tablet 1 tab PO DAILY RF: 0 ranitidine HCl 150 mg Tablet 150 mg PO QAM RF: 0 cholecalciferol (vitamin D3) [Vitamin D3] 2,000 unit Capsule 2,000 unit PO QPM RF: 0 calcium carb-mag ox-zinc sulf 333-133-5 mg Tablet 1 tab PO QAM RF: 0 ranitidine HCl 150 mg Tablet 75 mg PO BEDTIME RF: 0 tamsulosin [Flomax] 0.4 mg Capsule,Extended Release 24hr 0.4 mg PO BEDTIME RF: 0 albuterol sulfate 90 mcg/actuation HFA aerosol inhaler 1 puff INHALATION Q4-6H PRN (Reason: shortness of breath) Qty: 6.7 RF: 0 Discontinued lorazepam 0.5 mg Tablet 0.25 - 0.5 mg PO BID RF: 0 metronidazole 500 mg Tablet 500 mg PO Q8H RF: 0 levofloxacin 500 mg Tablet 500 mg PO DAILYX9 RF: 0 Follow up/Referrals: Luis Daniel Varghese MD [Primary Care Provider] - Discharge Health Status Brief summary of current health status: Alert and oriented X3. A bit forgetful. Q2H assist with repositioning, waffle cushion while OOB. Duoderm dressing to coccyx (stage II pressure ulcer). Scheduled Tramadol has been working well to manage pain. Feeds himself. Pills whole with water, thin liquids. Provider Discharge Instructions Diet: Low-fat and Low-cholesterol Skin/Wound/Dressing Care Report to your healthcare provider any signs of infection, such as:: chills, fever, night sweats, increased pain, unusual drainage and unusual redness Discharge Data Primary Care Provider: Luis Daniel Varghese Attending Provider: Kimber Wallis Admit Date/Time: 05/10/18 17:06 Discharges patient from system. Discharge Date/Time: 05/15/18 11:28 Quality VTE Deep Vein Thrombosis/Pulmonary Embolism Present on Admission: No
[2018-05-13] MEDS: SODIUM CHLORIDE 0.9% FLUSH 10 ML IV ×2 (08:59→21:34)
[2018-05-13] MEDS: TRAMADOL 50 MG TABLET PO ×2 (09:03→21:35)
[2018-05-13] MEDS: MULTIVITAMIN 1 TABLET 1 TAB PO (09:04)
--- NOTE | 2018-05-13 11:11 | PT.IPTN ---
Physical Therapy Treatment Note M2 PT-IP Current Condition Start: 05/11/18 13:32 Freq: NEEDED Status: Active Protocol: Document 05/11/18 10:20 AB (Rec: 05/11/18 13:59 AB [id number]) Physical Therapy Current Condition Current Condition Evaluation Date 05/11/18 Treatment Diagnosis L inf pubic ramus fx; difficulty in walking Onset Date 05/10/18 Weight Bearing Status Weight Bearing Status Weight Bear as Tolerated M3 PT-IP Subjective Start: 05/11/18 13:32 Freq: NEEDED Status: Active Protocol: Document 05/13/18 10:35 CLB (Rec: 05/13/18 11:11 CLB [id number]) Subjective Physical Therapy Visit Type Type Treatment Note Visit Start Time 10:35 Visit Stop Time 10:55 Total Visit Minutes 20 Notes RN requested pt be transfered to to go for testing at 11: [address] CLERK Visits 3 Physical Therapy Visit Comments Patient Comments Pt willing to get up. Therapy Pain Assessment Pain When Pain Assessed At Rest Pain Present Pain Present Pain Reported M4 PT-IP Mobility and Gait Start: 05/11/18 13:32 Freq: NEEDED Status: Active Protocol: Document 05/13/18 10:35 CLB (Rec: 05/13/18 11:11 CLB [id number]) PT-Bed Mobility Assessment Rolling Type of Rolling Log Rolling Level of Assist Moderate Assistance 1 Person Assistance Supine to Sit Supine to Sit Moderate Assistance 1 Person Assistance Head of Bed Elevated Bedrails Scooting Scooting to Edge of Bed Standby Assistance PT-Transfer Assessment Sit to and From Stand Sit to and from Stand Contact Guard Assistance 1 Person Assistance Use of Upper Extremities Equipment Transfer Assistive Device Gait Belt Front Wheeled Walker Orthotic/Prosthetic Devices or Brace: No Transfers Transfer Destination Wheelchair Transfer Technique after ambulation Transfer Ability Level of Assist Contact Guard Assistance 1 Person Assistance Use of Upper Extremities Gait Assessment Gait Gait Assistance Required: Contact Guard Assist 1 Person Assist Distance (Feet) 15 Able to Maintain Weight Bearing Status Yes During Gait Assistive Devices Assistive Device Gait Belt Front Wheeled Walker Orthotic/Prosthetic Devices or Brace: No Gait Deviations General Gait Pattern Ataxic Decreased Stride Length Decreased Feet Clearance Flexed Trunk Factors Limiting Gait Function Factors Limiting Gait Function Decreased Activity Tolerance Decreased Strength Limited Range of Motion Pain Comments Gait Comments Pt able to ambulate w/CGA w/o LOB but fatigued quickly needing to sit down after ~ 15ft. M5 PT-IP Objective Assessments Start: 05/11/18 13:32 Freq: NEEDED Status: Active Protocol: Document 05/11/18 10:20 AB (Rec: 05/11/18 13:59 AB [id number]) Orientation Orientation/Cognition Level of Alertness Alert Orientation Name Place Situation Safety Awareness Decreased Safety Awareness Memory Description Short Term Impaired Prison Impaired Gross Range of Motion Lower Extremity ROM Assessment Within Functional Limits Strength Lower Extremity Strength Assessment Left Impaired Hip 3-/5 Knee 3-/5 Sensation Assessment Sensation Gross Sensation WNL Muscle Tone Muscle Tone WNL Yes M6 PT-IP Treatment Start: 05/11/18 13:32 Freq: NEEDED Status: Active Protocol: Document 05/13/18 10:35 CLB (Rec: 05/13/18 11:11 CLB [id number]) Physical Therapy Treatment Exercises Exercises Seated Knee Flexion/Extension Other Treatments Other Treatment Performed seated marches M7 PT-IP Assessment and Plan Start: 05/11/18 13:32 Freq: NEEDED Status: Active Protocol: Document 05/13/18 10:35 CLB (Rec: 05/13/18 11:11 CLB [id number]) PT Summary Assessment and Plan Summary Assessment Summary Pt requiring 1 person assist with bed mobility and assist with brief change. Pt requiring CGA for gait and fatigued quickly after 15ft. Pt able to perform seated marches and knee flx/ext. Pt continues to c/o pain in L hip area and states he has less pain on right side. Goals Bed Mobility Goal Minimal Assistance Transfer Goal Minimal Assistance Front Wheeled Walker Gait Goal Minimal Assistance Front Wheel Walker Gait Distance 50 Days to Meet Goals 5 Frequency of Treatment Frequency Of Treatment Twice a Day Treatment Plan Physical Therapy Treatment Plan Bed Mobility Training Transfer Training Gait Training Therapeutic Exercise Balance Retraining Discharge Planning Hot or Cold Pack Neuromuscular Re-ed Coordination Retraining Manual Therapy Other Recommendations and Next Treatment transfers Focus Recommendations To Nursing Amount of Assist Needed 1 Person Assist 2 Person Assist Discharge Recommendations PT Discharge Recommendations SNF Rehab
[2018-05-13 11:17] LABS: Bacteria Urine None Seen; RBC Urine None Seen (0-5/HPF); WBC Urine None Seen (0-5/HPF)
[2018-05-13 11:18] LABS: Appearance Urine UA CLEAR; Bilirubin Urine UA NEGATIVE (NEGATIVE); Color Urine UA YELLOW; Glucose Urine UA NEGATIVE (Negative); Ketones Urine UA NEGATIVE (NEGATIVE); Leukocyte Esterase Urine UA NEGATIVE (NEGATIVE); Nitrite Urine UA NEGATIVE (Negative); Occult Blood Urine UA NEGATIVE (Negative); Protein Urine UA NEGATIVE (Negative); Urobilinogen Urine UA 0.2 E.U./dL (0.2); pH Urine UA 6.5 (4.5-8.0)
[2018-05-13 11:42] LABS: Culture Indicated Urine Cult Not Indicated; Urine Comments Microscopic Normal
--- NOTE | 2018-05-13 11:48 | CM.DPC ---
Addendum entered by Elizabeth Reilly LPN 05/13/18 13:26: Discussed all this with Elo/[facility]anton/shirley GOODRICH. She says the auth will be in place for [facility] in hopes of acceptance tomorrow. Original Note: Addendum entered by Elizabeth Reilly LPN 05/13/18 12:41: Called [facility] DNS/INDUSTRIAL ELECTRICAL TECHNICIAN Deanne Yu: [phone] as had not heard back from Mist[facility] after 2nd attempt. She stated Misty was out sick. and no discharges had been accepted for this weekend. She stated that she had talked with Mist[facility] yesterday and both realized that [facility] had never accepted pt. She said she was able to contact [facility] last night 1999 and confirmed this. She said that [facility] would continue her review process tomorrow/Monday but was firm that no decision had been made. She is aware that [facility] has authorized stay at snf level. Updated Dr. Whittington and then met with pt and his Maira. Introduced self and role and explained the status of the referral to [facility]. Both expressed confusion and frustration, pt saying he just wanted to stay in the hospital until he was fully recovered. Maira seemed to understand situation better but did want to discuss the current medical status of her with Dr. Whittington. He was updated and said would be in shortly to update her. Discussed [facility] snf options: only other facility in [place]: [facility]/network [facility]. Encouraged both to allow a referral to be made to [facility] as expection is that this referral would be accepted without difficulty. Both were firm that they wished only [facility]. Noted that pt had a successful rehab stay there in November 2017 and that they knew others who had been there. Pt said I know nothing about this [facility]. Maira asked about doing an appeal of the d/c today as I understand that is our right. Explained the appeal process but also note that this pt has been here under OBSERVATION admission status since 05/10 and thus the appeal process does not apply. But encouraged them to discuss this with Dr. Whittington. Agreed to return after that discussion. Both expressed thankfulness for the discussion and the assist. Called Deanne back to let her know about the previous stay as this might help them make a decision tomorrow but also said that this was in no way an attempt to have them accept pt before they were ready. She stated she was not at the facility but that she would discuss this with their new accounts administrator Art (he is new to the facility, there about 2 weeks) and that he would call me back if he felt they could accept pt today. Dr. Whittington was just here with update. He said he had spoken with both, understood their desire for [facility] and he was agreeable to keeping pt again. He will be on again tomorrow and KP Rodriguez will also return to continue the case. Have faxed the full initial referral packet now to [facility] efax as well as directly to the facility so that the information will be available for review. Original Note: DCP:continued: Case received, noted plan for d/c to [facility] today and with confirmation that Stanton Gasca had given authorization for snf stay at [facility]. Dr. Ford had planned for a d/c today....just updated by SUGEY Ibarra that due to elevated white count a UA and a CT were being done to rule out any infection (vs related to steroids). Have left a vm on the [facility] admission line with no call back thus far. The initial snf order pack was faxed to [facility], unclear if these will be amended.
--- NOTE | 2018-05-13 13:28 | PT.IPTN ---
Physical Therapy Treatment Note M2 PT-IP Current Condition Start: 05/11/18 13:32 Freq: NEEDED Status: Active Protocol: Document 05/11/18 10:20 AB (Rec: 05/11/18 13:59 AB [id number]) Physical Therapy Current Condition Current Condition Evaluation Date 05/11/18 Treatment Diagnosis L inf pubic ramus fx; difficulty in walking Onset Date 05/10/18 Weight Bearing Status Weight Bearing Status Weight Bear as Tolerated M3 PT-IP Subjective Start: 05/11/18 13:32 Freq: NEEDED Status: Active Protocol: Document 05/13/18 12:50 CLB (Rec: 05/13/18 13:28 CLB [id number]) Subjective Physical Therapy Visit Type Type Treatment Note Visit Start Time 12:50 Visit Stop Time 13:13 Total Visit Minutes 23 Number of KITCHEN HAND Visits 4 Physical Therapy Visit Comments Patient Comments Pt wanting to walk then get into bed. Therapy Pain Assessment Pain When Pain Assessed During Mobility Pain Present Pain Present Pain Reported Location Left Hip Intensity 3 M4 PT-IP Mobility and Gait Start: 05/11/18 13:32 Freq: NEEDED Status: Active Protocol: Document 05/13/18 12:50 CLB (Rec: 05/13/18 13:28 CLB [id number]) PT-Bed Mobility Assessment Sit to Supine Sit to Supine Minimal Assistance 1 Person Assistance Bedrails Scooting Scooting Up and Down in Bed Minimal Assistance PT-Transfer Assessment Sit to and From Stand Sit to and from Stand Contact Guard Assistance 1 Person Assistance Use of Upper Extremities Equipment Transfer Assistive Device Gait Belt Front Wheeled Walker Orthotic/Prosthetic Devices or Brace: No Transfers Transfer Destination Bed Transfer Technique after ambulation Transfer Ability Level of Assist Contact Guard Assistance 1 Person Assistance Use of Upper Extremities Gait Assessment Gait Gait Assistance Required: Contact Guard Assist 1 Person Assist Distance (Feet) 30 Able to Maintain Weight Bearing Status Yes During Gait Assistive Devices Assistive Device Gait Belt Front Wheeled Walker Orthotic/Prosthetic Devices or Brace: No Gait Deviations General Gait Pattern Ataxic Decreased Stride Length Decreased Feet Clearance Flexed Trunk Factors Limiting Gait Function Factors Limiting Gait Function Decreased Activity Tolerance Decreased Strength Limited Range of Motion Pain Comments Gait Comments Pt ambulated further this afternoon, pt with increased stability w/o LOB. M5 PT-IP Objective Assessments Start: 05/11/18 13:32 Freq: NEEDED Status: Active Protocol: Document 05/11/18 10:20 AB (Rec: 05/11/18 13:59 AB [id number]) Orientation Orientation/Cognition Level of Alertness Alert Orientation Name Place Situation Safety Awareness Decreased Safety Awareness Memory Description Short Term Impaired Shelter Impaired Gross Range of Motion Lower Extremity ROM Assessment Within Functional Limits Strength Lower Extremity Strength Assessment Left Impaired Hip 3-/5 Knee 3-/5 Sensation Assessment Sensation Gross Sensation WNL Muscle Tone Muscle Tone WNL Yes M6 PT-IP Treatment Start: 05/11/18 13:32 Freq: NEEDED Status: Active Protocol: Document 05/13/18 12:50 CLB (Rec: 05/13/18 13:28 CLB [id number]) Physical Therapy Treatment Exercises Exercises Quad Sets M7 PT-IP Assessment and Plan Start: 05/11/18 13:32 Freq: NEEDED Status: Active Protocol: Document 05/13/18 12:50 CLB (Rec: 05/13/18 13:28 CLB [id number]) PT Summary Assessment and Plan Summary Assessment Summary Pt continues to require one person assist with gait and bed mobility. Pt able to ambulate in room ~30ft CGA with increased stability and no LOB. Frequency of Treatment Frequency Of Treatment Twice a Day Treatment Plan Physical Therapy Treatment Plan Bed Mobility Training Transfer Training Gait Training Therapeutic Exercise Balance Retraining Discharge Planning Hot or Cold Pack Neuromuscular Re-ed Coordination Retraining Manual Therapy Other Recommendations and Next Treatment transfers Focus Recommendations To Nursing Amount of Assist Needed 1 Person Assist 2 Person Assist Discharge Recommendations PT Discharge Recommendations SNF Rehab
--- NOTE | 2018-05-13 14:34 | P.PN_ITS ---
Subjective Date Patient Seen: 05/13/18 Time Patient Seen: 14:33 Interval history: PATIENT AT THIS TIME REFUSED DISCHARGE TO ANOTHER RETIREMENT FACILITY. HIS ORIGINAL DISCHARGE ORDER WERE CANCELLED PATIENT WOULD LIKE TO GO TO [facility]. REPORTED SOME COUGH. SPUTUM PRODUCTION ALSO REPORTED BEING YELLOWISH IN NATURE NO CHEST PAIN OR CHEST PALPITATION NO SHORTNESS OF BREATH NO OTHER SIGNIFICANT ISSUES OVERNIGHT SPOKE TO PATIENT AND AT BEDSIDE QUESTION IS IN CONCERNS ADDRESSED TO THEIR SATISFACTION Exam Vital Signs (past 8 hours): - 05/13/18 07:00 05/13/18 09:00 05/13/18 13:24 Temperature 97.6 F 97.8 F Pulse Rate 72 72 80 Respiratory Rate 18 18 18 Blood Pressure 141/67 H 148/65 H Pulse Oximetry 96 96 99 Fraction of Inspired Oxygen 21 Oxygen Delivery Method Room Air Oxygen Flow Rate 0 Narrative Exam Narrative: NO ACUTE DISTRESS. PATIENT IS ALERT ORIENTED X3. VITAL SIGNS STABLE HEAD ATRAUMATIC NORMOCEPHALIC NECK : SUPPLE WITHOUT ADENOPATHY NO CAROTID BRUITS EYE: EOMI, PERRLA, NORMAL CONJUNCTIVA; NO JAUNDICE CHEST: REGULAR RATE. NO RUBS. PMI IS NON DISPLACED. ; NORMAL S1-S2 PULMONARY: DECREASED BS OVER THE BASES. BIBASILAR CRACKLES NOTED; NO INCREASED DULLNESS TO PERCUSSION; NO WHEEZING ABDOMEN: SOFT. NON TENDER. NON DISTENDED. BOWEL SOUNDS ARE PRESENT IN ALL 4 QUADRANTS. NO MASS. EXTREMITIES: 3+ EDEMA.. NO CYANOSIS OR CLUBBING NOTED. NEURO: CRANIAL NERVES 2-12 GROSSLY INTACT. NO FOCAL NEUROLOGICAL DEFICIT NOTED. MSK: PAIN WITH ACTIVE AND PASSIVE ROM OF LOWER EXT ANGELICA; NO JOINT EFFUSION SKIN: NORMAL FOR ETHNICITY; NO ECCHYMOSIS. DEC ULCERS TO SACRAL AREA; BUTTOCKS; MILD DRAINAGE; DRESSING IN PLACE : NORMAL EXTERNAL GENITALIA. PSYCH : APPROPRIATE MOOD AND AFFECT. ALERT AWAKE ORIENTED X3 Objective Labs Result Diagrams: 05/13/18 05:33 05/13/18 05:33 Labs: Laboratory Results - last 24 hr 05/13/18 05/13/18 05/13/18 05:33 05:33 10:55 WBC 17.0 H RBC 3.39 L Hgb 11.1 L Hct 32.8 L MCV 96.8 MCH 32.8 MCHC 33.9 RDW 13.9 Plt Count 476 H Neut % (Auto) 82.5 H Lymph % (Auto) 12.6 L [place] % (Auto) 4.8 Eos % (Auto) 0.0 L Baso % (Auto) 0.1 Neut # (Auto) 21896 H Sodium 134 L Potassium 4.4 Chloride 101 Carbon Dioxide 27 BUN 21 H Creatinine 0.70 Estimated GFR > 60.0 BUN/Creatinine Ratio 30.0 H Glucose 115 H Calcium 8.7 Total Bilirubin 0.2 AST 16 L ALT 22 Alkaline Phosphatase 98 Total Protein 5.9 L Albumin 2.9 L Globulin 3.0 Albumin/Globulin Ratio 1.0 Urine Color Yellow Urine Appearance Clear Urine pH 6.5 Ur Specific [place] 1.020 Urine Protein Negative Urine Glucose (UA) Negative Urine Ketones Negative Urine Occult Blood Negative Urine Nitrate Negative Urine Bilirubin Negative Urine Urobilinogen 0.2 Ur Leukocyte Esterase Negative Urine RBC None seen Urine WBC None seen Urine Bacteria None seen Ur Culture Indicated? Cult not indicated Micro UA Comment Microscopic normal Assessment & Plan Plan: Assessment/Plan Narrative: IMPRESSION AND PLAN STATUS POST FALL. DUE TO PHYSICAL DECONDITIONING. WE WILL CONTINUE CURRENT MANAGEMENT; PHYSICAL THERAPY AND OCCUPATIONAL THERAPY WORKING WITH PATIENT; DISCHARGE TO RETIREMENT FACILITY ONCE A BED BECOMES AVAILABLE NONDISPLACED PUBIC RAMUS FRACTURE; NONSURGICAL MANAGEMENT. PT OT ORDERED. PAIN MANAGEMENT WITH STEROIDS AND OPIOID /NON OPIOIDS MEDICATIONS; BRACE TO BE ORDERED INDICATED LEUKOCYTOSIS. NO S/S OF INFECTIOUS PROCESS FOUND IN W/U; UA REPEATED AND WAS AGAIN NEG; PATIENT COULD HAVE SOME UNDERLYING BRONCHITIS IN ASSOCIATION WITH ACUTE REACTANT FROM THE STEROIDS CAUSING THE INCREASED WBC; NO FEVER OR CHILLS; DAILY CBC TO FOLLOW. PATIENT IS ON ANTIBIOTICS FOR POSSIBLE UNDERLYING BRONCHITIS POSSIBLE BRONCHITIS. CT CHEST WITHOUT CONTRAST WAS ORDERED TO RULE OUT PNEUMONIA. PATIENT IS ON ANTIBIOTICS. DUONEB TREATMENTS ORDERED. ANEMIA. MOST LIKELY OF CHRONIC DISEASE. CONT TO MONITOR FOR NOW. THROMBOCYTOSIS. ONCE AGAIN NOTED. FOLLOW CLOSELY FOR NOW; THERE IS NO OTHER TREATMENT RECOMMENDED HYPERTENSION PER HISTORY. PATIENT WILL BE RESTARTED ON HIS HOME MEDICATION INDICATED SACRAL DECUBITUS ULCER. THIS WAS PRESENT ON ARRIVAL. WOUND CARE TEAM ASSISTANCE NOTED AND APPRECIATED. PATIENT IS ON A PRESSURE REDUCING MATTRESS. PATIENT WILL NEED TO BE TURNED EVERY 2 HRS; WILL ADD DOXY; ADDITIONAL MANAGEMENT INDICATED HYPONATREMIA. THIS IS MILD IN NATURE. FOLLOW FOR NOW WITH SERIAL LABS. RESTRICT FLUID INDICATED HYPERGLYCEMIA. LIKELY RELATED TO STEROIDS. MONITOR FOR NOW ELEVATED BUN. LIKELY SECONDARY TO STEROIDS. MONITOR FOR NOW DC PT WHEN BED IS AVAILABLE AT RETIREMENT FACILITY OF HIS CHOICE PATIENT IS CLINICALLY STABLE FOR DISCHARGE AT THIS TIME Quality VTE Deep Vein Thrombosis/Pulmonary Embolism Present on Admission: No
[2018-05-13] MEDS: FISH OIL 1,000 MG CAPSULE 1000 MG PO (17:43)
[2018-05-13] MEDS: CHOLECALCIFEROL (VITAMIN D3) 1,000 UNIT TABLET 2000 UNIT PO (17:43)
[2018-05-13] MEDS: ASPIRIN EC 81 MG TABLET 162 MG PO (17:43)
[2018-05-13] MEDS: DONEPEZIL 5 MG TABLET 15 MG PO (17:43)
[2018-05-13] MEDS: SENNOSIDES 8.6 MG TABLET PO (21:32)
[2018-05-14] VITALS (9 sets, daily range): BP systolic 130–146; BP diastolic 62–70; PULSE 68–76; RESP 15–24; TEMP 36.4–36.6; O2SAT 94–98
[2018-05-14 05:54] LABS: Add Manual Diff / Slide Review NO; Hematocrit 34.5 % (41-53); Hemoglobin 11.3 g/dL (13.5-17.5); Lymphocytes Percent Auto 13.4 % (25-40); Mean Corpuscular HGB Conc 32.8 % (30-36); Mean Corpuscular Hemoglobin 32.1 PG (26-34); Monocytes Percent Auto 6.6 % (3-14); Neutrophils Absolute Auto 13200 /uL (1500-7000); Platelet Count 495 X10^3/uL (150-400); Red Blood Cell Count 3.52 X10^6/uL (4.5-5.9); Red Cell Distribution Width 14.3 % (11.6-14.8); White Blood Cell Count 16.5 X10^3/uL (4.5-11.0)
[2018-05-14 05:59] LABS: Alanine Aminotransferase 20 IU/L (21-72); Albumin 2.9 g/dL (3.5-5.0); Albumin Globulin Ratio 0.9 (1.0-2.8); Alkaline Phosphatase 93 U/L (38-126); Aspartate Aminotransferase 18 IU/L (17-59); Bilirubin Total 0.2 mg/dL (0.2-1.3); Blood Urea Nitrogen 27 mg/dL (9-20); Calcium 8.6 mg/dL (8.4-10.2); Carbon Dioxide 27 mmol/L (22-32); Chloride 101 mmol/L (98-107); Estimated Glomerular Filt Rate > 60.0 mL/min (>60); Globulin 3.1 g/dL (1.7-4.1); Glucose 116 mg/dL (80-110); HEMOLYSIS < 15 (0-50); Potassium 4.7 mmol/L (3.4-5.1); Sodium 135 mmol/L (137-145)
--- NOTE | 2018-05-14 07:44 | PC.NURSE ---
Patient allows some turns, and refuses other times. He will reposition self slightly in the bed. Denied pain this shift. at bedside. Uses urinal independently.
[2018-05-14] MEDS: BENZONATATE 100 MG CAPSULE PO ×3 (09:12→19:59)
[2018-05-14] MEDS: DOXYCYCLINE HYCLATE 100 MG TABLET PO ×2 (09:12→19:59)
[2018-05-14] MEDS: TRAMADOL 50 MG TABLET PO ×2 (09:12→20:03)
[2018-05-14] MEDS: ENOXAPARIN 40 MG/0.4 ML SYRINGE SUBCUT (09:12)
[2018-05-14] MEDS: AMOXICILLIN/CLAV 875/125 MG 1 TAB PO ×2 (09:12→19:59)
[2018-05-14] MEDS: MULTIVITAMIN 1 TABLET 1 TAB PO (09:12)
[2018-05-14] MEDS: SODIUM CHLORIDE 0.9% FLUSH 10 ML IV ×2 (09:13→20:00)
--- NOTE | 2018-05-14 09:51 | PT.IPTN ---
Physical Therapy Treatment Note M2 PT-IP Current Condition Start: 05/11/18 13:32 Freq: NEEDED Status: Active Protocol: Document 05/11/18 10:20 AB (Rec: 05/11/18 13:59 AB [id number]) Physical Therapy Current Condition Current Condition Evaluation Date 05/11/18 Treatment Diagnosis L inf pubic ramus fx; difficulty in walking Onset Date 05/10/18 Weight Bearing Status Weight Bearing Status Weight Bear as Tolerated M3 PT-IP Subjective Start: 05/11/18 13:32 Freq: NEEDED Status: Active Protocol: Document 05/14/18 09:30 LJ (Rec: 05/14/18 09:51 LJ [id number]) Subjective Physical Therapy Visit Type Type Treatment Note Visit Start Time 09:30 Visit Stop Time 09:42 Total Visit Minutes 12 Physical Therapy Visit Comments Patient Comments Pt willing to ambulate a short distance in hallway Therapy Pain Assessment Pain When Pain Assessed During Mobility Pain Present Pain Present Pain Reported M4 PT-IP Mobility and Gait Start: 05/11/18 13:32 Freq: NEEDED Status: Active Protocol: Document 05/14/18 09:30 LJ (Rec: 05/14/18 09:51 LJ [id number]) PT-Bed Mobility Assessment Sit to Supine Sit to Supine Minimal Assistance 1 Person Assistance Bedrails Scooting Scooting Up and Down in Bed Standby Assistance PT-Transfer Assessment Sit to and From Stand Sit to and from Stand Standby Assistance Use of Upper Extremities Equipment Transfer Assistive Device Gait Belt Front Wheeled Walker Orthotic/Prosthetic Devices or Brace: No Transfers Transfer Destination Bed Transfer Technique after ambulation Transfer Ability Level of Assist Contact Guard Assistance 1 Person Assistance Use of Upper Extremities Comments Mobility Comments Pt moves slowly during bed mobility and transfers. Requires min assist with LLE to return to bed. Able to perform bed mobility with SBA Gait Assessment Gait Gait Assistance Required: Contact Guard Assist 1 Person Assist Distance (Feet) 75 Able to Maintain Weight Bearing Status Yes During Gait Assistive Devices Assistive Device Gait Belt Front Wheeled Walker Orthotic/Prosthetic Devices or Brace: No Gait Deviations General Gait Pattern Ataxic Decreased Stride Length Decreased Feet Clearance Flexed Trunk Factors Limiting Gait Function Factors Limiting Gait Function Decreased Activity Tolerance Decreased Strength Limited Range of Motion Pain Comments Gait Comments Pt ambulated further this session. Educated on posture and muscle activation to increase stability and safety with ambulation. M5 PT-IP Objective Assessments Start: 05/11/18 13:32 Freq: NEEDED Status: Active Protocol: Document 05/11/18 10:20 AB (Rec: 05/11/18 13:59 AB [id number]) Orientation Orientation/Cognition Level of Alertness Alert Orientation Name Place Situation Safety Awareness Decreased Safety Awareness Memory Description Short Term Impaired Ribbon Lap Machine Tender Impaired Gross Range of Motion Lower Extremity ROM Assessment Within Functional Limits Strength Lower Extremity Strength Assessment Left Impaired Hip 3-/5 Knee 3-/5 Sensation Assessment Sensation Gross Sensation WNL Muscle Tone Muscle Tone WNL Yes M6 PT-IP Treatment Start: 05/11/18 13:32 Freq: NEEDED Status: Active Protocol: Document 05/14/18 09:30 LJ (Rec: 05/14/18 09:51 LJ [id number]) Physical Therapy Treatment Exercises Exercises Gluteal Sets Quad Sets M7 PT-IP Assessment and Plan Start: 05/11/18 13:32 Freq: NEEDED Status: Active Protocol: Document 05/14/18 09:30 LJ (Rec: 05/14/18 09:51 LJ [id number]) PT Summary Assessment and Plan Summary Assessment Summary Pt continues to require one person assist with gait and bed mobility. Pt able to ambulate in hallway 75' CGA with increased stability and no LOB. Frequency of Treatment Frequency Of Treatment Twice a Day Treatment Plan Physical Therapy Treatment Plan Bed Mobility Training Transfer Training Gait Training Therapeutic Exercise Balance Retraining Discharge Planning Hot or Cold Pack Neuromuscular Re-ed Coordination Retraining Manual Therapy Recommendations To Nursing Amount of Assist Needed 1 Person Assist 2 Person Assist Discharge Recommendations PT Discharge Recommendations SNF Rehab
--- NOTE | 2018-05-14 11:11 | PM.PN.1 ---
Subjective Date Patient Seen: 05/14/18 Time Patient Seen: 11:12 Interval history: FEELING MUCH BETTER TODAY COMPLAINED OF HICCUPS NO FEVER OR CHILLS OVERNIGHT NO OTHER COMPLAINTS SPOKE TO PT WITH SPOUSE AT BEDSIDE QUESTIONS AND CONCERNS ADDRESSED AGREEABLE FOR SNF. Exam Vital Signs (past 8 hours): - 05/14/18 06:00 05/14/18 08:25 Temperature 97.8 F Pulse Rate 72 68 Respiratory Rate 16 24 Blood Pressure 136/68 146/70 H Pulse Oximetry 96 96 Fraction of Inspired Oxygen 21 Oxygen Delivery Method Room Air Oxygen Flow Rate 0 Narrative Exam Narrative: NO ACUTE DISTRESS. PATIENT IS ALERT ORIENTED X3. VITAL SIGNS STABLE HEAD ATRAUMATIC NORMOCEPHALIC NECK : SUPPLE WITHOUT ADENOPATHY NO CAROTID BRUITS EYE: EOMI, PERRLA, NORMAL CONJUNCTIVA; NO JAUNDICE CHEST: REGULAR RATE. NO RUBS. PMI IS NON DISPLACED. ; NORMAL S1-S2 PULMONARY: DECREASED BS OVER THE BASES. BIBASILAR CRACKLES NOTED; NO INCREASED DULLNESS TO PERCUSSION; NO WHEEZING ABDOMEN: SOFT. NON TENDER. NON DISTENDED. BOWEL SOUNDS ARE PRESENT IN ALL 4 QUADRANTS. NO MASS. EXTREMITIES: 3+ EDEMA.. NO CYANOSIS OR CLUBBING NOTED. NEURO: CRANIAL NERVES 2-12 GROSSLY INTACT. NO FOCAL NEUROLOGICAL DEFICIT NOTED. MSK: PAIN WITH ACTIVE AND PASSIVE ROM OF LOWER EXT ANGELICA; NO JOINT EFFUSION SKIN: NORMAL FOR ETHNICITY; NO ECCHYMOSIS. DEC ULCERS TO SACRAL AREA; BUTTOCKS; MILD DRAINAGE; DRESSING IN PLACE : NORMAL EXTERNAL GENITALIA. PSYCH : APPROPRIATE MOOD AND AFFECT. ALERT AWAKE ORIENTED X3 Objective Labs Result Diagrams: 05/14/18 05:28 05/14/18 05:28 Labs: Laboratory Results - last 24 hr 05/13/18 05/14/18 05/14/18 10:55 05:28 05:28 WBC 16.5 H RBC 3.52 L Hgb 11.3 L Hct 34.5 L MCV 98.0 MCH 32.1 MCHC 32.8 RDW 14.3 Plt Count 495 H Neut % (Auto) 80.0 H Lymph % (Auto) 13.4 L [place] % (Auto) 6.6 Eos % (Auto) 0.0 L Baso % (Auto) 0.0 Neut # (Auto) 69674 H Sodium 135 L Potassium 4.7 Chloride 101 Carbon Dioxide 27 BUN 27 H Creatinine 0.60 L Estimated GFR > 60.0 BUN/Creatinine Ratio 45.0 H Glucose 116 H Calcium 8.6 Total Bilirubin 0.2 AST 18 ALT 20 L Alkaline Phosphatase 93 Total Protein 6.0 L Albumin 2.9 L Globulin 3.1 Albumin/Globulin Ratio 0.9 L Urine Color Yellow Urine Appearance Clear Urine pH 6.5 Ur Specific [place] 1.020 Urine Protein Negative Urine Glucose (UA) Negative Urine Ketones Negative Urine Occult Blood Negative Urine Nitrate Negative Urine Bilirubin Negative Urine Urobilinogen 0.2 Ur Leukocyte Esterase Negative Urine RBC None seen Urine WBC None seen Urine Bacteria None seen Ur Culture Indicated? Cult not indicated Micro UA Comment Microscopic normal Assessment & Plan Plan: Assessment/Plan Narrative: IMPRESSION AND PLAN STATUS POST FALL. DUE TO PHYSICAL DECONDITIONING. WE WILL CONTINUE CURRENT MANAGEMENT; PHYSICAL THERAPY AND OCCUPATIONAL THERAPY WORKING WITH PATIENT; DISCHARGE TO HALFWAY FACILITY ONCE A BED BECOMES AVAILABLE NONDISPLACED PUBIC RAMUS FRACTURE; NONSURGICAL MANAGEMENT. PT OT ORDERED. PAIN MANAGEMENT WITH STEROIDS AND OPIOID /NON OPIOIDS MEDICATIONS; BRACE TO BE ORDERED INDICATED LEUKOCYTOSIS. NO S/S OF INFECTIOUS PROCESS FOUND IN W/U; UA REPEATED AND WAS AGAIN NEG; PATIENT COULD HAVE SOME UNDERLYING BRONCHITIS IN ASSOCIATION WITH ACUTE REACTANT FROM THE STEROIDS CAUSING THE INCREASED WBC; NO FEVER OR CHILLS; DAILY CBC TO FOLLOW. PATIENT IS ON ANTIBIOTICS FOR THE POSSIBLE UNDERLYING BRONCHITIS; IMPROVED TODAY. POSSIBLE BRONCHITIS. CT CHEST RULED OUT PNEUMONIA. PATIENT IS ON ANTIBIOTICS. DUONEB TREATMENTS ORDERED. LUNG NODULE; INCIDENTAL FINDING; REPEAT CT IN 12 MONTHS PER RECOMENDATION; WILL DEFER TO OUTPATIENT PROVIDERS THYROID NODULE; OUTPATIENT MANAGEMENT CHOLELITHIASIS; OUTPATIENT MANAGEMENT ANEMIA. MOST LIKELY OF CHRONIC DISEASE. CONT TO MONITOR FOR NOW. THROMBOCYTOSIS. ONCE AGAIN NOTED. FOLLOW CLOSELY FOR NOW; THERE IS NO OTHER TREATMENT RECOMMENDED HYPERTENSION PER HISTORY. PATIENT WILL BE RESTARTED ON HIS HOME MEDICATION INDICATED SACRAL DECUBITUS ULCER. THIS WAS PRESENT ON ARRIVAL. WOUND CARE TEAM ASSISTANCE NOTED AND APPRECIATED. PATIENT IS ON A PRESSURE REDUCING MATTRESS. PATIENT WILL NEED TO BE TURNED EVERY 2 HRS; WILL ADD DOXY; ADDITIONAL MANAGEMENT INDICATED HYPONATREMIA. THIS IS MILD IN NATURE. FOLLOW FOR NOW WITH SERIAL LABS. RESTRICT FLUID INDICATED HYPERGLYCEMIA. LIKELY RELATED TO STEROIDS. MONITOR FOR NOW DC ONCE BED IS AVAILABLE AT [facility] PATIENT STABLE FOR DC Quality VTE Deep Vein Thrombosis/Pulmonary Embolism Present on Admission: No
--- NOTE | 2018-05-14 11:18 | P.PN_ITS ---
Subjective Date Patient Seen: 05/14/18 Time Patient Seen: 11:12 Interval history: FEELING MUCH BETTER TODAY COMPLAINED OF HICCUPS NO FEVER OR CHILLS OVERNIGHT NO OTHER COMPLAINTS SPOKE TO PT WITH SPOUSE AT BEDSIDE QUESTIONS AND CONCERNS ADDRESSED AGREEABLE FOR SNF. Exam Vital Signs (past 8 hours): - 05/14/18 06:00 05/14/18 08:25 Temperature 97.8 F Pulse Rate 72 68 Respiratory Rate 16 24 Blood Pressure 136/68 146/70 H Pulse Oximetry 96 96 Fraction of Inspired Oxygen 21 Oxygen Delivery Method Room Air Oxygen Flow Rate 0 Narrative Exam Narrative: NO ACUTE DISTRESS. PATIENT IS ALERT ORIENTED X3. VITAL SIGNS STABLE HEAD ATRAUMATIC NORMOCEPHALIC NECK : SUPPLE WITHOUT ADENOPATHY NO CAROTID BRUITS EYE: EOMI, PERRLA, NORMAL CONJUNCTIVA; NO JAUNDICE CHEST: REGULAR RATE. NO RUBS. PMI IS NON DISPLACED. ; NORMAL S1-S2 PULMONARY: DECREASED BS OVER THE BASES. BIBASILAR CRACKLES NOTED; NO INCREASED DULLNESS TO PERCUSSION; NO WHEEZING ABDOMEN: SOFT. NON TENDER. NON DISTENDED. BOWEL SOUNDS ARE PRESENT IN ALL 4 QUADRANTS. NO MASS. EXTREMITIES: 3+ EDEMA.. NO CYANOSIS OR CLUBBING NOTED. NEURO: CRANIAL NERVES 2-12 GROSSLY INTACT. NO FOCAL NEUROLOGICAL DEFICIT NOTED. MSK: PAIN WITH ACTIVE AND PASSIVE ROM OF LOWER EXT ANGELICA; NO JOINT EFFUSION SKIN: NORMAL FOR ETHNICITY; NO ECCHYMOSIS. DEC ULCERS TO SACRAL AREA; BUTTOCKS; MILD DRAINAGE; DRESSING IN PLACE : NORMAL EXTERNAL GENITALIA. PSYCH : APPROPRIATE MOOD AND AFFECT. ALERT AWAKE ORIENTED X3 Objective Labs Result Diagrams: 05/14/18 05:28 05/14/18 05:28 Labs: Laboratory Results - last 24 hr 05/13/18 05/14/18 05/14/18 10:55 05:28 05:28 WBC 16.5 H RBC 3.52 L Hgb 11.3 L Hct 34.5 L MCV 98.0 MCH 32.1 MCHC 32.8 RDW 14.3 Plt Count 495 H Neut % (Auto) 80.0 H Lymph % (Auto) 13.4 L [place] % (Auto) 6.6 Eos % (Auto) 0.0 L Baso % (Auto) 0.0 Neut # (Auto) 87332 H Sodium 135 L Potassium 4.7 Chloride 101 Carbon Dioxide 27 BUN 27 H Creatinine 0.60 L Estimated GFR > 60.0 BUN/Creatinine Ratio 45.0 H Glucose 116 H Calcium 8.6 Total Bilirubin 0.2 AST 18 ALT 20 L Alkaline Phosphatase 93 Total Protein 6.0 L Albumin 2.9 L Globulin 3.1 Albumin/Globulin Ratio 0.9 L Urine Color Yellow Urine Appearance Clear Urine pH 6.5 Ur Specific [place] 1.020 Urine Protein Negative Urine Glucose (UA) Negative Urine Ketones Negative Urine Occult Blood Negative Urine Nitrate Negative Urine Bilirubin Negative Urine Urobilinogen 0.2 Ur Leukocyte Esterase Negative Urine RBC None seen Urine WBC None seen Urine Bacteria None seen Ur Culture Indicated? Cult not indicated Micro UA Comment Microscopic normal Assessment & Plan Plan: Assessment/Plan Narrative: IMPRESSION AND PLAN STATUS POST FALL. DUE TO PHYSICAL DECONDITIONING. WE WILL CONTINUE CURRENT MANAGEMENT; PHYSICAL THERAPY AND OCCUPATIONAL THERAPY WORKING WITH PATIENT; DISCHARGE TO LONG TERM FACILITY ONCE A BED BECOMES AVAILABLE NONDISPLACED PUBIC RAMUS FRACTURE; NONSURGICAL MANAGEMENT. PT OT ORDERED. PAIN MANAGEMENT WITH STEROIDS AND OPIOID /NON OPIOIDS MEDICATIONS; BRACE TO BE ORDERED INDICATED LEUKOCYTOSIS. NO S/S OF INFECTIOUS PROCESS FOUND IN W/U; UA REPEATED AND WAS AGAIN NEG; PATIENT COULD HAVE SOME UNDERLYING BRONCHITIS IN ASSOCIATION WITH ACUTE REACTANT FROM THE STEROIDS CAUSING THE INCREASED WBC; NO FEVER OR CHILLS; DAILY CBC TO FOLLOW. PATIENT IS ON ANTIBIOTICS FOR THE POSSIBLE UNDERLYING BRONCHITIS; IMPROVED TODAY. POSSIBLE BRONCHITIS. CT CHEST RULED OUT PNEUMONIA. PATIENT IS ON ANTIBIOTICS. DUONEB TREATMENTS ORDERED. LUNG NODULE; INCIDENTAL FINDING; REPEAT CT IN 12 MONTHS PER RECOMENDATION; WILL DEFER TO OUTPATIENT PROVIDERS THYROID NODULE; OUTPATIENT MANAGEMENT CHOLELITHIASIS; OUTPATIENT MANAGEMENT ANEMIA. MOST LIKELY OF CHRONIC DISEASE. CONT TO MONITOR FOR NOW. THROMBOCYTOSIS. ONCE AGAIN NOTED. FOLLOW CLOSELY FOR NOW; THERE IS NO OTHER TREATMENT RECOMMENDED HYPERTENSION PER HISTORY. PATIENT WILL BE RESTARTED ON HIS HOME MEDICATION INDICATED SACRAL DECUBITUS ULCER. THIS WAS PRESENT ON ARRIVAL. WOUND CARE TEAM ASSISTANCE NOTED AND APPRECIATED. PATIENT IS ON A PRESSURE REDUCING MATTRESS. PATIENT WILL NEED TO BE TURNED EVERY 2 HRS; WILL ADD DOXY; ADDITIONAL MANAGEMENT INDICATED HYPONATREMIA. THIS IS MILD IN NATURE. FOLLOW FOR NOW WITH SERIAL LABS. RESTRICT FLUID INDICATED HYPERGLYCEMIA. LIKELY RELATED TO STEROIDS. MONITOR FOR NOW DC ONCE BED IS AVAILABLE AT [facility] PATIENT STABLE FOR DC Quality VTE Deep Vein Thrombosis/Pulmonary Embolism Present on Admission: No
--- NOTE | 2018-05-14 11:32 | OT.IP.TRT ---
Occupational Therapy Treatment Note M2 OT-IP Current Condition Start: 05/11/18 16:41 Freq: Status: Active Protocol: Document 05/11/18 14:40 PJM (Rec: 05/11/18 17:01 PJM [id number]) Occupational Therapy Current Condition Current Condition Evaluation Date 05/11/18 Treatment Diagnosis decreased self care, mobility s/p L pelvic fx from GLF(non surgical) Diagnosis Onset Date 05/10/18 Post Operative Precautions Other Precautions fall risk Weight Bearing Status Weight Bearing Status Weight Bear as Tolerated Allowed Weight Bearing Amount (enter % LLE or #) (%) M3 OT- IP Subjective and Pain Start: 05/11/18 16:41 Freq: Status: Active Protocol: Document 05/14/18 11:24 [facility] (Rec: 05/14/18 11:31 [facility] [id number]) OT- Subjective Occupational Therapy Visit Type Type Treatment Note Visit Start Time 10:05 Visit Stop Time 10:45 Total Visit Minutes 40 Occupational Therapy Visit Comments Patient Comments Pt needing encouragement from and then finally agreed to shower. OT Pain Assessment Pain When Pain Assessed At Rest Pain Present Pain Present Pain Reported Location Buttock Intensity 5 Scale Used Numeric (1 - 10) M4 OT- IP ADL's Start: 05/11/18 16:41 Freq: Status: Active Protocol: Document 05/14/18 11:24 [facility] (Rec: 05/14/18 11:31 [facility] [id number]) OT ADL-Grooming General Evaluation Grooming Ability Standby Assistance Areas Needing Assistance Retrieving/Set-up of Grooming Items Comments OT Grooming Comments Set-up and able to do all grooming at while sitting at edge of bed. OT ADL-Dressing General Eval Upper Body Dressing Ability Standby Assistance Lower Body Dressing Ability Maximum Assistance Areas Needing Assistance Socks Support Stockings Comments OT Dressing Comments MAX A for LB dressing needs. OT ADL-Toileting General Evaluation Toileting Ability Standby Assistance Contact Guard Assistance Devices Toileting Assistive Devices Urinal Comments OT Toileting Comments Set-up and CGA to stand while using urinal or needing to hold to grab bar for balance. OT ADL-Bathing Bathing Type Bathing Type Shower General Evaluation Bathing Ability Moderate Assistance Areas Needing Assistance Wash/Dry Back Wash/Dry Perineal Area Wash/Dry Lower Extremities Devices Bathing Equipment Hand Held Shower Sprayer Shower Chair with Arms Grab Bars Comments OT Bathing Comments Pt needing assist for LB needs , perineal area for completeness, and back. At hoem, assist for showering needs. M5 OT- IP IADL's Start: 05/11/18 16:41 Freq: Status: Active Protocol: Document 05/11/18 14:40 PJM (Rec: 05/11/18 17:01 PJM [id number]) OT-Instrumental Activities of Daily Living Deficits IADL Deficits Identified Deficits Home Safety Awareness Awareness of Need for Assistance at Home Good Awareness Ability to Problem Solve Emergency Able to Problem Solve Situations Medication Management Medication Management Caregiver Provides Supervision Medication Management Comments assists with all IADLS at home Money Management Money Management Caregiver Provides Assistance Meal Preparation Meal Preparation Caregiver Provides Assist Powder Line Repairer Powder Line Repairer Caregiver Provides Assist Driving Driving Caregiver Provides Assist M6 OT- IP Functional Cognition Start: 05/11/18 16:41 Freq: Status: Active Protocol: Document 05/12/18 16:13 PJM (Rec: 05/12/18 16:40 PJM [id number]) Cognitive Factors Limiting Selfcare Function Cognitive Ability Level of Alertness Alert Attention Span Ability Capable of Focused Attention Ability to Follow Commands Able to Follow One Step Commands Cognitive Comments Cognitive Assessment Comments Pt more alert today with faster sped of processing; appears less sedated. Pt familiar with use of adaptive equipment from previous hospitalizations. M7 OT- IP Mobility and Balance Start: 05/11/18 16:41 Freq: Status: Active Protocol: Document 05/14/18 11:24 [facility] (Rec: 05/14/18 11:31 [facility] [id number]) OT- Bed Mobility Assessment Rolling Type of Rolling Roll to Right Level of Assistance Moderate Assistance 1 Person Assistance Supine to Sit Supine to Sit Assist Moderate Assistance 1 Person Assistance OT-Transfer Assessment Sit to and From Stand Sit to and from Stand Minimal Assistance Moderate Assistance 1 Person Assistance Transfers Transfer Ability Minimal Assistance 1 Person Assistance Technique Transfer Destination Bed Shower Stall Devices Transfer Assistive Devices Gait Belt Front Wheeled Walker Comments Mobility Comments Pt needing assist to stand especially from lower surfaces , MODA to stand. Pt unsetady on his feet as well, tends to lean back into posterior tilt. OT- Balance Assessment Sitting Balance and Reactions Static Sitting Balance Ability Normal Dynamic Sitting Balance Ability Good Standing Balance and Reactions Static Standing Balance Ability Fair Dynamic Standing Balance Ability Poor M8 OT- IP Objective Assessments Start: 05/11/18 16:41 Freq: Status: Active Protocol: Document 05/11/18 14:40 PJM (Rec: 05/11/18 17:01 PJM [id number]) OT Gross Range of Motion Upper Extremity Range of Motion Assessment Within Functional Limits OT Strength Upper Extremity Strength Assessment Within Functional Limits Comments Strength Comments deconditioned but WFL for basic self care OT- Coordination Assessment Comments Coordination Comments BUE WFL OT-Muscle Tone Assessment Muscle Tone WNL Yes OT Sensation Assessment Comments Summary Comments BUE WNL per pt M9 OT- IP Assessment and Plan Start: 05/11/18 16:41 Freq: Status: Active Protocol: Document 05/12/18 16:13 PJM (Rec: 05/12/18 16:40 PJM [id number]) OT Summary Assessment and Plan Potential Rehabilitation Potential Good Summary OT Impairments Strength Balance Functional Mobility Grooming Dressing Toileting Bathing Toilet Transfers Shower Transfers Progress Towards Goals Progressing Toward Goals Assessment Summary Pt improved with bed mobility and now able to do with one person assist, however still needing MODA to stand at times especially from lower surfaces. Pt needing MODA for showering and MAX fo LB dressing needs still and would benefit form skilled rehab. Goals Grooming Goal Minimal Assistance Dressing Goal Minimal Assistance Long Handled [place] Computer Processing Scheduler Sock Aid Toileting Goal Moderate Assistance Bathing Goal Minimal Assistance Toilet Transfer Goal Minimal Assistance Bedside Commode Patient/Caregiver Education Goal Demonstrate Energy Conservation and Pacing OT-Other Goals Grooming to be done standing at sink or seated in chair by sink. Bathing goal is for seated upper body sponge bath. Days to Meet Goals 5 Frequency of Treatment Frequency Of Treatment Once a Day Treatment Plan OT Treatment Plan ADL Training Functional Mobility Patient/Family Education Discharge Planning Discharge Recommendations OT Discharge Recommendations SNF Rehab
[2018-05-14] MEDS: DEXAMETHASONE 4 MG TABLET PO (14:25)
--- NOTE | 2018-05-14 14:28 | PC.NURSE ---
day shift Pt is a&o able to make needs know. c/o discomfort to buttocks and bilateral hips, assisted with repositioning with waffle cushion. pt received shower with OT today this rn changed dressing coccyx reapplied Duoderm area surround wound has redness/discoloration to skin, no s/sx of infections continues to be stage 2. continue to assist pt with repositioning in bed with waffle cushion and off loading pressure. Call light within reach. and at bedside.
--- NOTE | 2018-05-14 14:55 | PT.IPTN ---
Physical Therapy Treatment Note M2 PT-IP Current Condition Start: 05/11/18 13:32 Freq: NEEDED Status: Active Protocol: Document 05/11/18 10:20 AB (Rec: 05/11/18 13:59 AB [id number]) Physical Therapy Current Condition Current Condition Evaluation Date 05/11/18 Treatment Diagnosis L inf pubic ramus fx; difficulty in walking Onset Date 05/10/18 Weight Bearing Status Weight Bearing Status Weight Bear as Tolerated M3 PT-IP Subjective Start: 05/11/18 13:32 Freq: NEEDED Status: Active Protocol: Document 05/14/18 14:05 LJ (Rec: 05/14/18 14:54 LJ [id number]) Subjective Physical Therapy Visit Type Type Treatment Note Visit Start Time 14:05 Visit Stop Time 14:39 Total Visit Minutes 34 Physical Therapy Visit Comments Patient Comments Pt states he needs to urinate prior to ambulating Therapy Pain Assessment Pain When Pain Assessed During Mobility Pain Present Pain Present Pain Reported M4 PT-IP Mobility and Gait Start: 05/11/18 13:32 Freq: NEEDED Status: Active Protocol: Document 05/14/18 14:05 LJ (Rec: 05/14/18 14:54 LJ [id number]) PT-Bed Mobility Assessment Rolling Type of Rolling Log Rolling Level of Assist Standby Assistance Supine to Sit Supine to Sit Standby Assistance Head of Bed Elevated Bedrails Sit to Supine Sit to Supine Standby Assistance Head of Bed Elevated Bedrails Scooting Scooting to Edge of Bed Standby Assistance Scooting Up and Down in Bed Standby Assistance PT-Transfer Assessment Sit to and From Stand Sit to and from Stand Standby Assistance Use of Upper Extremities Equipment Transfer Assistive Device Gait Belt Front Wheeled Walker Orthotic/Prosthetic Devices or Brace: No Transfers Transfer Destination Bed Transfer Technique Stand Step Pivot Transfer Ability Level of Assist Contact Guard Assistance 1 Person Assistance Use of Upper Extremities Comments Mobility Comments Pt able to get in and out of bed with SBA. Able to scoot and position self in bed using handrails. SBA for transfers. Gait Assessment Gait Gait Assistance Required: Contact Guard Assist 1 Person Assist Distance (Feet) 80 Able to Maintain Weight Bearing Status Yes During Gait Assistive Devices Assistive Device Gait Belt Front Wheeled Walker Orthotic/Prosthetic Devices or Brace: No Gait Deviations General Gait Pattern Ataxic Decreased Stride Length Decreased Feet Clearance Flexed Trunk Step-to Gait Factors Limiting Gait Function Factors Limiting Gait Function Decreased Activity Tolerance Decreased Strength Limited Range of Motion Pain Comments Gait Comments Pt ambulated an additional 5' from am treatment. Took 4 standing rest breaks of several seconds and 1 standing break of several mins. while conversing with a friend in the hallway. M5 PT-IP Objective Assessments Start: 05/11/18 13:32 Freq: NEEDED Status: Active Protocol: Document 05/11/18 10:20 AB (Rec: 05/11/18 13:59 AB [id number]) Orientation Orientation/Cognition Level of Alertness Alert Orientation Name Place Situation Safety Awareness Decreased Safety Awareness Memory Description Short Term Impaired Precipitator Supervisor Impaired Gross Range of Motion Lower Extremity ROM Assessment Within Functional Limits Strength Lower Extremity Strength Assessment Left Impaired Hip 3-/5 Knee 3-/5 Sensation Assessment Sensation Gross Sensation WNL Muscle Tone Muscle Tone WNL Yes M6 PT-IP Treatment Start: 05/11/18 13:32 Freq: NEEDED Status: Active Protocol: Document 05/14/18 14:05 [facility]LOT[facility] (Rec: 05/14/18 14:54 [facility] [id number]) Physical Therapy Treatment Exercises Exercises Gluteal Sets Quad Sets Other Treatments Other Treatment Performed mini crunches in bed M7 PT-IP Assessment and Plan Start: 05/11/18 13:32 Freq: NEEDED Status: Active Protocol: Document 05/14/18 14:05 [facility]LOT[facility] (Rec: 05/14/18 14:54 [facility] [id number]) PT Summary Assessment and Plan Summary Assessment Summary Pt improving tolerance for ambulation. Requires cueing for posture and gait pattern Frequency of Treatment Frequency Of Treatment Twice a Day Treatment Plan Physical Therapy Treatment Plan Bed Mobility Training Transfer Training Gait Training Therapeutic Exercise Balance Retraining Discharge Planning Hot or Cold Pack Neuromuscular Re-ed Coordination Retraining Manual Therapy Recommendations To Nursing Amount of Assist Needed 1 Person Assist Discharge Recommendations PT Discharge Recommendations SNF Rehab
--- NOTE | 2018-05-14 15:09 | CM.DPC ---
DCP SNF Planning Per MD, pt still medically stable to d/c to SNF today. SHEKHAR called [facility] admissions at 0830 to update on pt d/c today and left msg requesting call back to confirm. SHEKHAR received a call from Fouzia, admissions [facility], stating she and the DNS were reviewing pt's updated clinicals and wound care needs to confirm they can accept. [facility] faxed pt's med rec with request for clarification to SHEKHAR to provide to the hospitalist to reduce any medication confusion once pt discharges. SHEKHAR provided it to MD who was completed the requested information. [facility] states that they need to order a speciality immersion bed for the pt to adequately meet his sacral wounds to prevent pt's skin breakdown after discharge from the hospital and [facility] Fouzia working with [place] to get approval and auth number to cover cost of the specialty bed. SHEKHAR inquired if pt could be discharged to their facility with regular bed until speciality bed arrives and [facility] hesitant in case pt has any wound break down in the mean time and want to best meet the pt's needs based on the Wound Care recommendations and MD d/c instructions. Stanton Holloway as well as Elo both call SW and received update and confirmed that they were approving specialty bed and aware pt will d/c today or tomorrow pending delivery of specialty bed. SHEKHAR received a call from [facility] F[facility] stating bed to be delivered tonight around 1800 and can accept pt tomorrow morning. SHEKHAR faxed back MD clarification of med rec requests and scipt to [facility] to review for d/c tomorrow. SHEKHAR met bedside with pt and explained role and had just left to go parts picker their disabled son to come [facility] S[place] and SHEKHAR updated pt on d/c plan and approval and specialty bed and pt appreciative and agreeable with d/c tomorrow morning. SHEKHAR updated MD and RN. Plan: SHEKHAR to follow for pt d/c to [facility] tomorrow after specialty bed delivered to [facility]. EDUARDA Chappell
[2018-05-14] MEDS: CHOLECALCIFEROL (VITAMIN D3) 1,000 UNIT TABLET 2000 UNIT PO (18:54)
[2018-05-14] MEDS: DONEPEZIL 5 MG TABLET 15 MG PO (18:55)
[2018-05-14] MEDS: ASPIRIN EC 81 MG TABLET 162 MG PO (18:55)
[2018-05-14] MEDS: FISH OIL 1,000 MG CAPSULE 1000 MG PO (18:56)
--- NOTE | 2018-05-14 21:49 | PC.NURSE ---
1500- assumed care of pt from outgoing shift at 1500 this day. Pt awake and alert. cooperative with bedside report. asking about hiccup med through IV. discussed this med, and gave pt a print out of information and pt then refused to have the PRN dose. Pt worried about all the side effects. pt was not hiccuping all that much. after evening pills pt did start to hiccup. Pt pleasant and cooperative. pt uses call light. weight being shifted, waffle cushion in place. Pt bed alarm on. side rails upx3 for pt safety. will continue to monitor.
[2018-05-15] VITALS: BP 141/80; PULSE 91; RESP 17; TEMP 36.6; O2SAT 96
[2018-05-15] MEDS: DEXAMETHASONE 4 MG TABLET PO ×2 (00:04→06:10)
[2018-05-15 03:45] VITALS: BP 151/78; PULSE 72; RESP 18; TEMP 36.7; O2SAT 97
[2018-05-15 05:34] LABS: Add Manual Diff / Slide Review NO; Basophils Percent Auto 0.3 % (0-2); Hematocrit 35.9 % (41-53); Hemoglobin 11.8 g/dL (13.5-17.5); Lymphocytes Percent Auto 12.1 % (25-40); Mean Corpuscular HGB Conc 32.9 % (30-36); Mean Corpuscular Hemoglobin 32.3 PG (26-34); Mean Corpuscular Volume 98.3 fL (80-100); Monocytes Percent Auto 6.3 % (3-14); Neutrophils Absolute Auto 13500 /uL (1500-7000); Neutrophils Percent Auto 81.3 % (50-75); Platelet Count 445 X10^3/uL (150-400); Red Blood Cell Count 3.65 X10^6/uL (4.5-5.9); Red Cell Distribution Width 14.3 % (11.6-14.8); White Blood Cell Count 16.6 X10^3/uL (4.5-11.0)
[2018-05-15 05:40] LABS: Alanine Aminotransferase 23 IU/L (21-72); Albumin Globulin Ratio 0.9 (1.0-2.8); Alkaline Phosphatase 104 U/L (38-126); Aspartate Aminotransferase 22 IU/L (17-59); Bilirubin Total 0.2 mg/dL (0.2-1.3); Blood Urea Nitrogen 27 mg/dL (9-20); Calcium 8.7 mg/dL (8.4-10.2); Carbon Dioxide 26 mmol/L (22-32); Chloride 101 mmol/L (98-107); Estimated Glomerular Filt Rate > 60.0 mL/min (>60); Globulin 3.2 g/dL (1.7-4.1); Glucose 113 mg/dL (80-110); HEMOLYSIS < 15 (0-50); Potassium 4.8 mmol/L (3.4-5.1); Sodium 135 mmol/L (137-145); Total Protein 6.2 g/dL (6.3-8.2)
[2018-05-15 07:00] VITALS: BP 154/81; PULSE 69; RESP 18; TEMP 36.4; O2SAT 97
[2018-05-15 08:54] VITALS: O2SAT 96
[2018-05-15] MEDS: TRAMADOL 50 MG TABLET PO (09:07)
[2018-05-15] MEDS: AMOXICILLIN/CLAV 875/125 MG 1 TAB PO (09:09)
[2018-05-15] MEDS: BENZONATATE 100 MG CAPSULE PO (09:09)
[2018-05-15] MEDS: ENOXAPARIN 40 MG/0.4 ML SYRINGE SUBCUT (09:10)
[2018-05-15] MEDS: MULTIVITAMIN 1 TABLET 1 TAB PO (09:10)
[2018-05-15] MEDS: DOXYCYCLINE HYCLATE 100 MG TABLET PO (09:10)
[2018-05-15] MEDS: SODIUM CHLORIDE 0.9% FLUSH 10 ML IV (09:11)
--- NOTE | 2018-05-15 10:22 | CM.DPC ---
DCP Discharge to SNF Per MD, pt remains stable for d/c to SNF today. SHEKHAR received a call from Fouzia at [facility] confirming that pt's Specialty Immersion bed was delivered last night and she will be working with [place] to get auth number for insurance coverage for the bed but they can accept the pt this morning. SHEKHAR confirmed with RN and PT that pt is safe for w/c transport to [facility]. [facility] scheduled [facility] w/c transport for 1100 this morning. SHEKHAR updated MD, RN, NTL, SPRINKLING TRUCK DRIVER on d/c time and location. SHEKHAR refaxed d/c summ, signed med rec with specific MD clarification notes, scripts, and PAS[facility] again for review. SHEKHAR met bedside with pt and explained role again and discussed d/c plan of [facility] today via w/c at 1100 and pt still agreeable and asked SW to call his spouse cell phone as she is staying in town at a hotel in anticipation of pt d/c today. SHEKHAR called spouse's cell [phone] and left msg with information on d/c plans for today and spouse had previously been agreeable with meeting pt at [facility] if she could not make it to the hospital by transport time. SHEKHAR faxed d/c summary to [place] for review. Plan: Patient to d/c to [facility] today via [facility] w/c van at 1100 prior to safe return home. EDUARDA Chappell
--- NOTE | 2018-05-15 11:26 | PC.NURSE ---
Transfer: IV dc'd intact. Dressing to coccyx changed prior to discharge. Report called to Fouzia /Luna at [facility]. All belongings sent with patient at transfer. Transfer packet, including all scripts (including Vicodin and Tramadol) given to transport staff. Assisted into wheelchair and taken out by transport staff.
== END 2018-05-15 11:28 ==
LOC: ED 16:41 → AC 05-11 07:00
PROVIDERS: Admitting Provider Hospitalist; Emergency Provider Emergency Medicine; Family Provider Family Medicine; PCP Family Medicine; Visit Provider Hospitalist
DX: L89.152 Pressure ulcer of sacral region, stage 2 (principal); S32.592A Other specified fracture of left pubis, initial encounter for closed fracture; R53.1 Weakness; W05.0XXA Fall from non-moving wheelchair, initial encounter; Y92.000 Kitchen of unspecified non-institutional (private) residence as the place of occurrence of the external cause; I10 Essential (primary) hypertension; Z91.81 History of falling; D64.9 Anemia, unspecified; D72.829 Elevated white blood cell count, unspecified; D47.3 Essential (hemorrhagic) thrombocythemia; Z96.642 Presence of left artificial hip joint; R91.1 Solitary pulmonary nodule; E04.1 Nontoxic single thyroid nodule; K80.20 Calculus of gallbladder without cholecystitis without obstruction; E87.1 Hypo-osmolality and hyponatremia; R73.9 Hyperglycemia, unspecified
CPT/HCPCS: 36415; 36591; 71045; 71250; 72192; 80053; 81001; 83605; 83735; 84100; 85025; 87040; 94760; 96365; 97116; 97162; 97165; 97530; 97535; 99283; 99285; G0378; A9270; J1650

== ENCOUNTER 2018-10-24 14:11 | Inpatient (IN) | payer OTHER, SELFPAY ==
--- NOTE | 2018-10-24 14:13 | ED.GENADULT ---
HPI - General Adult General Chief complaint: Urogenital-Male Stated complaint: Kidney stones Time Seen by Provider: 10/24/18 14:12 Source: patient Mode of arrival: ambulatory Limitations: no limitations History of Present Illness HPI narrative: Patient is an 83-year-old male. He states that he has been on Augmentin for the past 10 days for urinary tract infection. He also states that he was on an antibiotic prior to that. He states this was started by his primary doctor secondary to an infection. He also states that he has kidney stones. States that prior to this event he has never had kidney stones in the past. He states that he is wearing a pad and sees the stones. Apparently things were not improving so his primary doctor sent him here to the emergency department for evaluation. Related Data Home Medications Medication Instructions Recorded Confirmed tamsulosin [Flomax] 0.4 mg PO BEDTIME 09/13/17 05/10/18 aspirin 162 mg PO QPM 05/10/18 05/10/18 calcium carb-mag ox-zinc sulf 1 tab PO QAM 05/10/18 05/10/18 cholecalciferol (vitamin D3) 2,000 unit PO QPM 05/10/18 05/10/18 [Vitamin D3] donepezil 15 mg PO QPM 05/10/18 05/10/18 epinephrine [EpiPen 2-Lorenzo] 0.3 ml IM PRN PRN 05/10/18 05/10/18 fluoxetine 5 mg PO DAILY 05/10/18 05/10/18 meclizine 25 mg PO BID PRN 05/10/18 05/10/18 multivitamin 1 tab PO DAILY 05/10/18 05/10/18 omega 8-kxz-rgk-fish oil 1,200 mg PO DAILY 05/10/18 05/10/18 ranitidine HCl 75 mg PO BEDTIME 05/10/18 05/10/18 ranitidine HCl 150 mg PO QAM 05/10/18 05/10/18 Previous Rx's Medication Instructions Recorded albuterol sulfate 1 puff INHALATION Q4-6H PRN #6.7 09/13/17 gram hydrocodone-acetaminophen 1 tab PO Q4HR PRN #30 tab 05/13/18 ipratropium-albuterol 3 ml INHALATION Q6-8H PRN #90 ml 05/13/18 prednisolone sodium phosphate 10 mg PO DIRECTED #30 tab 05/13/18 tramadol 50 mg PO BID #40 tab 05/13/18 lorazepam 0.5 mg PO BID #20 tab 05/14/18 Allergies Allergy/AdvReac Type Severity Reaction Status Date / Time bee venom protein (honey bee) Allergy Severe Anaphylaxis Verified 10/24/18 14:19 gabapentin AdvReac Intermediate Hallucinati Verified 10/24/18 14:19 ng hydromorphone [From Dilaudid] AdvReac Intermediate Vomiting Verified 10/24/18 14:19 Review of Systems Constitutional Denies fever(s) and Denies headache(s) ENT Ears, Nose, Mouth, and Throat: Denies headache(s) Cardiovascular Denies chest pain and Denies dyspnea Respiratory Denies dyspnea Gastrointestinal Gastrointestinal: Reports abdominal pain, Denies change in stool character, Reports nausea and Reports vomiting Genitourinary Reports dysuria Comments: Passing stones Integumentary/Breasts Denies lesions and Denies rash Neurologic Denies headache(s) Hematologic/Lymphatic Denies easy bleeding and Denies easy bruising [facility] Medical History Fall (Acute) Hypertension (Acute) Right femoral fracture (Acute) Social History household members: spouse Smoking Status: Never smoker alcohol intake: never Exam Initial Vital Signs Initial Vital Signs: Vital Signs Temperature 98.4 F 10/24/18 14:15 Pulse Rate 116 H 10/24/18 14:15 Respiratory Rate 15 10/24/18 14:15 Blood Pressure 134/70 10/24/18 14:15 Pulse Oximetry 95 10/24/18 14:15 Const General: cooperative, well developed and well groomed Orientation: alert and awake [facility] Head: normal to inspection and normocephalic Resp Effort & Inspection: normal respiratory effort Auscultation: clear to auscultation bilaterally Cardio Rate: tachycardic Pulses: radial pulses present GI Inspection: non-distended Palpation: soft, No firm and No tender Skin Lesions: no lesions Rashes: no rashes Neuro General: alert and awake Speech: speech normal Extrem General: normal to inspection and capillary refill normal Psych Appearance: grossly normal and well kempt Course Orders Ordered: ED Orders 10/24/18 14:19 CT kidney ureter bladder (KUB) Stat EKG-12 Lead Stat 10/24/18 14:54 Basic Metabolic Panel Stat Blood Culture Stat Complete Blood Count AUTO DIFF Stat Lactate (Lactic Acid) Stat Procalcitonin Stat Sodium Chloride (Normal Saline 0.9%) 1,000 mls @ 150 mls/hr IV CONT KASH Last Infusion: 10/24/18 17:07 Dose: 150 mls/hr Admin: 10/24/18 14:34 Dose: 150 mls/hr Discontinued Medications Piperacillin/Tazobactam/Dextrose (Zosyn) 3.375 gm in 50 mls @ 100 mls/hr IV NOW ONE Stop: 10/24/18 16:48 Last Infusion: 10/24/18 17:07 Dose: 0 mls/hr Admin: 10/24/18 16:30 Dose: 100 mls/hr Vital Signs - 8 hr 10/24/18 14:15 10/24/18 14:30 10/24/18 15:00 Temperature 98.4 F Pulse Rate 116 H 96 H 96 H Respiratory Rate 15 20 19 Blood Pressure 134/70 Blood Pressure [Left Arm] 130/66 146/65 H Pulse Oximetry 95 97 10/24/18 16:50 Temperature Pulse Rate 85 Respiratory Rate 16 Blood Pressure Blood Pressure [Left Arm] 123/59 L Pulse Oximetry 99 Medical Decision Making Lab Data Lab results reviewed: Yes I reviewed the patient's lab results. Result diagrams: 10/24/18 14:54 10/24/18 14:54 Lab Results 10/24/18 10/24/18 10/24/18 Range/Units 14:54 14:54 14:54 WBC 18.4 H (4.5-11.0) X10^3/uL RBC 4.02 L (4.5-5.9) X10^6/uL Hgb 12.9 L (13.5-17.5) g/dL Hct 38.4 L (41-53) % MCV 95.6 (80-100) fL MCH 32.0 (26-34) PG MCHC 33.5 (30-36) % RDW 13.6 (11.6-14.8) % Plt Count 396 (150-400) X10^3/uL Neut % (Auto) 73.6 (50-75) % Lymph % (Auto) 14.0 L (25-40) % Butler % (Auto) 10.3 (3-14) % Eos % (Auto) 1.1 L (2-4) % Baso % (Auto) 1.0 (0-2) % Neut # (Auto) 15051 H (7654-4277) /uL Lymph # (Auto) 2600 (8151-9595) /uL Butler # (Auto) 1900 H (0-900) /uL Eos # (Auto) 200 (0-450) /uL Baso # (Auto) 200 H (0-100) /uL Sodium 136 L (137-145) mmol/L Potassium 4.0 (3.4-5.1) mmol/L Chloride 100 (98-107) mmol/L Carbon Dioxide 25 (22-32) mmol/L BUN 22 H (9-20) mg/dL Creatinine 1.10 (0.66-1.25) mg/dL Estimated GFR > 60.0 (>60) mL/min BUN/Creatinine Ratio 20.0 (6-22) Glucose 114 H (80-110) mg/dL Lactate (0.7-2.1) mmol/L Calcium 9.9 (8.4-10.2) mg/dL Procalcitonin 0.06 (<0.5) ng/mL 10/24/18 Range/Units 14:54 WBC (4.5-11.0) X10^3/uL RBC (4.5-5.9) X10^6/uL Hgb (13.5-17.5) g/dL Hct (41-53) % MCV (80-100) fL MCH (26-34) PG MCHC (30-36) % RDW (11.6-14.8) % Plt Count (150-400) X10^3/uL Neut % (Auto) (50-75) % Lymph % (Auto) (25-40) % Butler % (Auto) (3-14) % Eos % (Auto) (2-4) % Baso % (Auto) (0-2) % Neut # (Auto) (7729-7024) /uL Lymph # (Auto) (7056-0670) /uL Butler # (Auto) (0-900) /uL Eos # (Auto) (0-450) /uL Baso # (Auto) (0-100) /uL Sodium (137-145) mmol/L Potassium (3.4-5.1) mmol/L Chloride (98-107) mmol/L Carbon Dioxide (22-32) mmol/L BUN (9-20) mg/dL Creatinine (0.66-1.25) mg/dL Estimated GFR (>60) mL/min BUN/Creatinine Ratio (6-22) Glucose (80-110) mg/dL Lactate 1.3 (0.7-2.1) mmol/L Calcium (8.4-10.2) mg/dL Procalcitonin (<0.5) ng/mL Imaging Data CT scan - abdomen: Radiologist's impression: [address] [address] [address] Scan Report Signed Patient: Greg Arriola EMR#: [id number] : 6Acct:[id number] Age/Sex: 83 / MDate of Service: 10/24/18 Loc: ED Accession Number: [id number] Procedure: CT kidney ureter bladder (KUB) Ordering Provider: Silviano Pedersen D.O. PROCEDURE: CT KIDNEY URETER BLADDER (KUB) INDICATIONS: History of stones and recurrent urinary tract infection TECHNIQUE: Noncontrast 5 mm thick sections acquired from the diaphragms to the symphysis. 5 mm thick coronal and sagittal reformats were then performed. For radiation dose reduction, the following was used: automated exposure control, adjustment of mA and/or kV according to patient size. COMPARISON: [facility], CT, CT ABDOMEN PELVIS WITH CONTRAST, 05/02/2018, 14:40. FINDINGS: Image quality: Excellent. Lung bases: Lung bases are clear. Heart size is normal. Urinary system: Both kidneys are normal in size. No kidney stones. No hydronephrosis or perinephric fat stranding. Both ureters appear non-dilated throughout their expected courses. There is a catheter present in the bladder. A bladder diverticulum contains air and fluid within it. Other solid organs: Liver is normal in size. Gallbladder contains multiple small stones.. Pancreas is normal in contours. Spleen is normal in size. No adrenal nodules. Peritoneum and bowel: Again noted is the presence of extensive changes of sigmoid diverticulosis. There is extensive sigmoid thickening. Acute diverticulitis may be present. No free fluid or air. There is no radiodense material in the appendix. The appendix is mildly prominent. There is no inflammation around the appendix. There is gas present at the base of the appendix. Nodes and vessels: No retroperitoneal or mesenteric adenopathy by size criteria. Aorta and inferior vena cava are normal in caliber. Abdominal wall: No ventral hernias. Pelvis: No free pelvic fluid. No inguinal hernias or adenopathy. Bones: No suspicious bony lesions. Old L1 compression. Interval development of a moderate L3 superior endplate compression, which may be acute or subacute. Left total hip prosthesis. Remote orthopedic fixation of the right hip. IMPRESSION: 1. No evidence of renal stone or ureteral stone. 2. Bladder catheter in place with air present in the bladder diverticulum. 3. Extensive sigmoid diverticulosis. Question sigmoid diverticulitis. 4. Prominent appendix with hyperdense material within it. Clinical correlation is suggested. 5. Gallstones. Dictated by: Rodrigo Nielson M.D. on 10/24/2018 at 14:48 Approved by: Rodrigo Nielson M.D. on 10/24/2018 at 14:[address] abdomen pelvis: Radiologist's impression: Greg Arriola 83 M 1935 [place] [address] CT Scan Report Addendum Patient: Greg Arriola EMR#: [id number] : [id number]:[id number] Age/Sex: 83 / MDate of Service: 10/24/18 Loc: ED Accession Number: [id number] Procedure: CT kidney ureter bladder (KUB) Ordering Provider: Silviano Pedersen D.O. ADDENDUM This report includes an Addendum and supersedes previous reports for this exam. PROCEDURE: CT KIDNEY URETER BLADDER (KUB) INDICATIONS: History of stones and recurrent urinary tract infection TECHNIQUE: Noncontrast 5 mm thick sections acquired from the diaphragms to the symphysis. 5 mm thick coronal and sagittal reformats were then performed. For radiation dose reduction, the following was used: automated exposure control, adjustment of mA and/or kV according to patient size. COMPARISON: [facility], CT, CT ABDOMEN PELVIS WITH CONTRAST, 05/02/2018, 14:40. FINDINGS: Image quality: Excellent. Lung bases: Lung bases are clear. Heart size is normal. Urinary system: Both kidneys are normal in size. No kidney stones. No hydronephrosis or perinephric fat stranding. Both ureters appear non-dilated throughout their expected courses. There is a catheter present in the bladder. A bladder diverticulum contains air and fluid within it. Other solid organs: Liver is normal in size. Gallbladder contains multiple small stones.. Pancreas is normal in contours. Spleen is normal in size. No adrenal nodules. Peritoneum and bowel: Again noted is the presence of extensive changes of sigmoid diverticulosis. There is extensive sigmoid thickening. Acute diverticulitis may be present. No free fluid or air. There is no radiodense material in the appendix. The appendix is mildly prominent. There is no inflammation around the appendix. There is gas present at the base of the appendix. Nodes and vessels: No retroperitoneal or mesenteric adenopathy by size criteria. Aorta and inferior vena cava are normal in caliber. Abdominal wall: No ventral hernias. Pelvis: No free pelvic fluid. No inguinal hernias or adenopathy. Bones: No suspicious bony lesions. Old L1 compression. Interval development of a moderate L3 superior endplate compression, which may be acute or subacute. Left total hip prosthesis. Remote orthopedic fixation of the right hip. IMPRESSION: 1. No evidence of renal stone or ureteral stone. 2. Bladder catheter in place with air present in the bladder diverticulum. 3. Extensive sigmoid diverticulosis. Question sigmoid diverticulitis. 4. Prominent appendix with hyperdense material within it. Clinical correlation is suggested. 5. Gallstones. Dictated by: Rodrigo Nielson M.D. on 10/24/2018 at 14:48 Approved by: Rodrigo Nielson M.D. on 10/24/2018 at 14:59 ADDENDUM: At the request of Dr. Pedersen, the study is further reviewed. The patient does not have a catheter in his bladder. There is air in the bladder and an extensive amount of air present in the penile urethra. There is an air-fluid level in the bladder diverticulum. 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 ADDENDED IMPRESSION: 1. 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 2. Air within the bladder, a bladder diverticulum, and throughout the penile urethra. 3. Gallstones. 4. No evidence renal stone or ureteral stone. Comment: Findings were discussed with Dr. Pedersen at the time of study addendum. Dictated by: Rodrigo Nielson M.D. on 10/24/2018 at 15:25 Approved by: Rodrigo Nielson M.D. on 10/24/2018 at 15:28 Addendum Dictated By:Rodrigo Nielson MD Addendum Signed By: Addendum Cosigned By: DD/ /02/1531 TD/TT: 10/24/1805/02/1531 PROCEDURE: CT KIDNEY URETER BLADDER (KUB) INDICATIONS: History of stones and recurrent urinary tract infection TECHNIQUE: Noncontrast 5 mm thick sections acquired from the diaphragms to the symphysis. 5 mm thick coronal and sagittal reformats were then performed. For radiation dose reduction, the following was used: automated exposure control, adjustment of mA and/or kV according to patient size. COMPARISON: [facility], CT, CT ABDOMEN PELVIS WITH CONTRAST, 05/02/2018, 14:40. FINDINGS: Image quality: Excellent. Lung bases: Lung bases are clear. Heart size is normal. Urinary system: Both kidneys are normal in size. No kidney stones. No hydronephrosis or perinephric fat stranding. Both ureters appear non-dilated throughout their expected courses. There is a catheter present in the bladder. A bladder diverticulum contains air and fluid within it. Other solid organs: Liver is normal in size. Gallbladder contains multiple small stones.. Pancreas is normal in contours. Spleen is normal in size. No adrenal nodules. Peritoneum and bowel: Again noted is the presence of extensive changes of sigmoid diverticulosis. There is extensive sigmoid thickening. Acute diverticulitis may be present. No free fluid or air. There is no radiodense material in the appendix. The appendix is mildly prominent. There is no inflammation around the appendix. There is gas present at the base of the appendix. Nodes and vessels: No retroperitoneal or mesenteric adenopathy by size criteria. Aorta and inferior vena cava are normal in caliber. Abdominal wall: No ventral hernias. Pelvis: No free pelvic fluid. No inguinal hernias or adenopathy. Bones: No suspicious bony lesions. Old L1 compression. Interval development of a moderate L3 superior endplate compression, which may be acute or subacute. Left total hip prosthesis. Remote orthopedic fixation of the right hip. IMPRESSION: 1. No evidence of renal stone or ureteral stone. 2. Bladder catheter in place with air present in the bladder diverticulum. 3. Extensive sigmoid diverticulosis. Question sigmoid diverticulitis. 4. Prominent appendix with hyperdense material within it. Clinical correlation is suggested. 5. Gallstones. Dictated by: Rodrigo Nielson M.D. on 10/24/2018 at 14:48 Approved by: Rodrigo Nielson M.D. on 10/24/2018 at 14:59 ECG Data Attestation: I personally reviewed and interpreted this ECG as follows: Prior ECG tracings: not available for review Interpretation: Sinus tachycardia Ventricular rate of 111 Left axis deviation Normal QRS Normal QTC No ST T wave changes MDM Narrative Medical decision making narrative: Patient has been incontinent of urine. Bladder scan only showed 30 cc of urine. Does have an elevated white blood cell count is tachycardic however is not febrile. Patient is not toxic appearing. He does have left lower quadrant abdominal tenderness. CT scan shows no signs of kidney stones however does show what appears to be sigmoid diverticulitis. 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 Patient has no CVA tenderness. I suspect that when he thought was the stones that he was passing through his urine was actually a fecal material. The patient has been on Bactrim and Augmentin without improvement. I discussed the case with Dr. Gonzalez with General surgery who stated the patient should be treated medically with IV antibiotics and he stated he would consult on the patient during the admission. I did discuss the case with Dr. Kraus who will admit the patient. Informed the patient and his of the admission. They expressed understanding and agreement with plan. Discharge Plan Departure Patient Disposition: Admitted as Observation Clinical Impression: Diverticulitis Interventions: ED Discharge Assessment Last Done: 10/24/18 17:09 Admit Date/Time: 10/24/18 16:34 Admit Provider: Emmie Kraus
[2018-10-24 14:15] VITALS: BP 134/70; PULSE 116; RESP 15; TEMP 36.9; O2SAT 95; BMI 24.0
--- NOTE | 2018-10-24 14:19 | DI.CT.S_ITS ---
PROCEDURE: CT KIDNEY URETER BLADDER (KUB) INDICATIONS: History of stones and recurrent urinary tract infection TECHNIQUE: Noncontrast 5 mm thick sections acquired from the diaphragms to the symphysis. 5 mm thick coronal and sagittal reformats were then performed. For radiation dose reduction, the following was used: automated exposure control, adjustment of mA and/or kV according to patient size. COMPARISON: [facility], CT, CT ABDOMEN PELVIS WITH CONTRAST, 05/02/2018, 14:40. FINDINGS: Image quality: Excellent. Lung bases: Lung bases are clear. Heart size is normal. Urinary system: Both kidneys are normal in size. No kidney stones. No hydronephrosis or perinephric fat stranding. Both ureters appear non-dilated throughout their expected courses. There is a catheter present in the bladder. A bladder diverticulum contains air and fluid within it. Other solid organs: Liver is normal in size. Gallbladder contains multiple small stones.. Pancreas is normal in contours. Spleen is normal in size. No adrenal nodules. Peritoneum and bowel: Again noted is the presence of extensive changes of sigmoid diverticulosis. There is extensive sigmoid thickening. Acute diverticulitis may be present. No free fluid or air. There is no radiodense material in the appendix. The appendix is mildly prominent. There is no inflammation around the appendix. There is gas present at the base of the appendix. Nodes and vessels: No retroperitoneal or mesenteric adenopathy by size criteria. Aorta and inferior vena cava are normal in caliber. Abdominal wall: No ventral hernias. Pelvis: No free pelvic fluid. No inguinal hernias or adenopathy. Bones: No suspicious bony lesions. Old L1 compression. Interval development of a moderate L3 superior endplate compression, which may be acute or subacute. Left total hip prosthesis. Remote orthopedic fixation of the right hip. IMPRESSION: 1. No evidence of renal stone or ureteral stone. 2. Bladder catheter in place with air present in the bladder diverticulum. 3. Extensive sigmoid diverticulosis. Question sigmoid diverticulitis. 4. Prominent appendix with hyperdense material within it. Clinical correlation is suggested. 5. Gallstones. Dictated by: Rodrigo Nielson M.D. on 10/24/2018 at 14:48 Approved by: Rodrigo Nielson M.D. on 10/24/2018 at 14:59
[2018-10-24 14:30] VITALS: BP 130/66; PULSE 96; RESP 20
[2018-10-24] MEDS: SODIUM CHLORIDE 0.9% 1,000 ML 150 ML IV (14:34)
[2018-10-24 15:00] VITALS: BP 146/65; PULSE 96; RESP 19; O2SAT 97
[2018-10-24 15:07] LABS: Add Manual Diff / Slide Review NO; Basophils Absolute Auto 200 /uL (0-100); Eosinophils Absolute Auto 200 /uL (0-450); Eosinophils Percent Auto 1.1 % (2-4); Hematocrit 38.4 % (41-53); Hemoglobin 12.9 g/dL (13.5-17.5); Lymphocytes Absolute Auto 2600 /uL (1100-4500); Mean Corpuscular HGB Conc 33.5 % (30-36); Mean Corpuscular Volume 95.6 fL (80-100); Monocytes Absolute Auto 1900 /uL (0-900); Monocytes Percent Auto 10.3 % (3-14); Neutrophils Absolute Auto 13600 /uL (1500-7000); Neutrophils Percent Auto 73.6 % (50-75); Platelet Count 396 X10^3/uL (150-400); Red Blood Cell Count 4.02 X10^6/uL (4.5-5.9); Red Cell Distribution Width 13.6 % (11.6-14.8); White Blood Cell Count 18.4 X10^3/uL (4.5-11.0)
[2018-10-24 15:20] LABS: Lactate (Lactic Acid) 1.3 mmol/L (0.7-2.1)
[2018-10-24 15:21] LABS: Blood Urea Nitrogen 22 mg/dL (9-20); Calcium 9.9 mg/dL (8.4-10.2); Carbon Dioxide 25 mmol/L (22-32); Chloride 100 mmol/L (98-107); Estimated Glomerular Filt Rate > 60.0 mL/min (>60); Glucose 114 mg/dL (80-110); HEMOLYSIS < 15 (0-50); Sodium 136 mmol/L (137-145)
--- NOTE | 2018-10-24 16:16 | PC.NURSE ---
pt reports he is being treated for kidney stones. reports he is having urinary incontinence and painful urination. reports that he is passing sand like particles every time he pees.
[2018-10-24] MEDS: PIPERACILLIN-TAZO 3.375 GM/50 ML FROZ.PIGGY IV (16:30)
[2018-10-24 16:35] LABS: Procalcitonin 0.06 ng/mL (<0.5)
--- NOTE | 2018-10-24 16:49 | PC.NURSE ---
placed a condom catheter on pt to obtain a urine sample.
[2018-10-24 16:50] VITALS: BP 123/59; PULSE 85; RESP 16; O2SAT 99
[2018-10-24 16:53] VITALS: BMI 22.8
--- NOTE | 2018-10-24 18:01 | PC.NURSE ---
Addendum entered by Ava Norris R.N. 10/24/18 22:20: 1800 dose Zosyn not given upon pt's arrival to floor. Pt received dose in E.R. prior to transport upstairs. Addendum entered by Ava Norris R.N. 10/24/18 21:26: Pt awake and alert in bed watching television. Denies pain at this assessment and refuses offer for analgesia. Is able to make needs and wants known to staff. Addendum entered by Ava Norris R.N. 10/24/18 20:28: Surgery has seen pt this evening shift as well as [facility]. Addendum entered by Ava Norris R.N. 10/24/18 19:23: Pt has asked multiple times for food. Discussed with Dr. Kraus via telephone who states pt may have heart healthy diet. This was provided. Original Note: Pt to room 207 from E.R. awake and alert. Slider board and three staff members to transfer pt to bed. Oriented to bed and call light. Admits to LLQ pain 7/10. Denies nausea. Urine collected via condom cath and sent to lab as ordered. Pt reports incontinent of urine. Continues to state taking medication that turns my urine brown. Pt's urine is brown with flecks of particulate matter. Brief in place. Spouse is present and plans on rooming in overnight. Pt requests to be fed.
[2018-10-24 18:03] VITALS: BP 121/58; PULSE 87; RESP 16; TEMP 37.8; O2SAT 97
[2018-10-24 18:18] LABS: Appearance Urine UA TURBID; Bilirubin Urine UA 1+ (NEGATIVE); Glucose Urine UA NEGATIVE (Negative); Ketones Urine UA TRACE (NEGATIVE); Leukocyte Esterase Urine UA 2+ (NEGATIVE); Nitrite Urine UA POSITIVE (Negative); Occult Blood Urine UA 3+ (Negative); Protein Urine UA 2+ (Negative); Specific Gravity Urine UA 1.025 (1.000-1.035); pH Urine UA 6.5 (4.5-8.0)
[2018-10-24 18:19] LABS: Color Urine UA BROWN
[2018-10-24 18:22] LABS: Amorphous Sediment Urine 3+; Bacteria Urine Many (>30); Culture Indicated Urine Specimen Cultured; Mucus Urine 2+ (Negative); RBC Urine 5-10/HPF (0-5/HPF); Squamous Epithelial Cell Urine 0-1 /HPF (0-5/HPF); WBC Urine >100/HPF (0-5/HPF)
[2018-10-24 18:25] LABS: Ictotest Urine Positive (Negative)
--- NOTE | 2018-10-24 19:47 | PM.CN ---
History of Present Illness Date Patient Seen: 10/24/18 Time Patient Seen: 19:00 Chief complaint: Kidney stones Reason for consult: Colovesicular fistula Narrative: 83-year-old man with mild dementia presents to ED after protracted course of antibiotic therapy for urinary tract infection. Was on trimethoprim sulfamethoxazole for at least a week followed most recently by amp/sulbactam x 10days. In this setting pt began to develop LLQ/L flank pain and he was refered to ED for further evaluation with renal stone proticol CT demonstrating signficant air in bladder and urethra and extensive diverticular disease c/w colovesicular fistula. Upon further questioning pts pain symptom has been at least 10days of dysuria and in retrospect pneumaturia with each void. He endorses mild LLQ pain but no carol flank pain. Overal he feels well today and is hungery. Pt has a hx of colon polyps. Last colonoscopy 4-5yrs ago. Family hx of colon cancer in mother. No hx of crohns. No pelvic radiation Reviewing pts labs he has had a elevated WBC in the low to upper teens since May 01. [facility] Medical History (Updated 10/24/18 @ 20:01 by Jarett Gonzalez MD) Colovesical fistula (Acute) Fall (Acute) Hypertension (Acute) Right femoral fracture (Acute) Social History household members: spouse Smoking Status: Never smoker alcohol intake: never Social History household members: spouse Smoking Status: Never smoker alcohol intake: never Meds Home Medications Medication Instructions Recorded Confirmed Type tamsulosin [Flomax] 0.4 mg PO BEDTIME 09/13/17 10/24/18 History aspirin 162 mg PO QPM 05/10/18 10/24/18 History calcium carb-mag ox-zinc sulf 1 tab PO QAM 05/10/18 10/24/18 History cholecalciferol (vitamin D3) 2,000 unit PO QPM 05/10/18 10/24/18 History [Vitamin D3] donepezil 15 mg PO QPM 05/10/18 10/24/18 History epinephrine [EpiPen 2-Lorenzo] 0.3 ml IM PRN PRN 05/10/18 10/24/18 History fluoxetine 5 mg PO DAILY 05/10/18 10/24/18 History meclizine 25 mg PO BID PRN 05/10/18 10/24/18 History multivitamin 1 tab PO DAILY 05/10/18 10/24/18 History omega 2-ifq-civ-fish oil 1,200 mg PO DAILY 05/10/18 10/24/18 History ranitidine HCl 75 mg PO BEDTIME 05/10/18 10/24/18 History ranitidine HCl 150 mg PO QAM 05/10/18 10/24/18 History tramadol 50 mg PO BID #40 tab 05/13/18 10/24/18 Rx lorazepam 0.5 mg PO BID #20 tab 05/14/18 10/24/18 Rx Allergies Allergy/AdvReac Type Severity Reaction Status Date / Time bee venom protein (honey bee) Allergy Severe Anaphylaxis Verified 10/24/18 14:19 gabapentin AdvReac Intermediate Hallucinati Verified 10/24/18 14:19 ng hydromorphone [From Dilaudid] AdvReac Intermediate Vomiting Verified 10/24/18 14:19 Review of Systems Constitutional Constitutional: Denies fever(s) Eyes Eyes: Denies bulging eyes ENT Ears, Nose, Mouth, and Throat: No lip swelling Cardiovascular Cardiovascular: Denies generalize swelling Respiratory Respiratory: Denies stridor Gastrointestinal Gastrointestinal: Denies coffee ground emesis Musculoskeletal Musculoskeletal: Denies loss of height Integumentary/Breasts Skin/Breast: Denies wounds Neurologic Neurologic: Denies abnormal speech and Denies confusion Psychiatric Psychiatric: Denies confusion Endocrine Endocrine: Denies deepening of the voice Hematologic/Lymphatic Hematologic/Lymphatic: Denies lymphadenopathy Allergic/Immunologic Allergic/Immunologic: Denies lip swelling Exam Vital Signs (past 8 hours): - 10/24/18 14:15 10/24/18 14:30 10/24/18 15:00 Temperature 98.4 F Pulse Rate 116 H 96 H 96 H Respiratory Rate 15 20 19 Blood Pressure 134/70 Blood Pressure [Left Arm] 130/66 146/65 H Pulse Oximetry 95 97 10/24/18 16:50 10/24/18 18:03 Temperature 100.0 F H Pulse Rate 85 87 Respiratory Rate 16 16 Blood Pressure 121/58 L Blood Pressure [Left Arm] 123/59 L Pulse Oximetry 99 97 Oxygen Delivery Method Room Air Narrative Exam Narrative: Oriented to year, month, day, hr, and season. knows in [facility]. Const General: cooperative Orientation: alert HENHI Head: normal to inspection Nose: nares normal Mouth: oral mucosae normal and lip normal Eyes Eyelids: eyelids normal Conjunctivae: conjunctivae normal Sclera: sclerae normal Neck Neck: supple and other (No thyromegally) Chest Chest: other (LCTAB , regular respiratory effort) Cardio Rhythm: regular rhythm Heart Sounds: S1 normal, S2 normal, no gallops, no murmurs and no rubs GI Other: Abdomen without surgical incisions. non distended, dull to precussion. mild to moderately tender over LLQ. no peritoneal signs. Other: CVA tenderness to percussion on L Skin General: no rashes or lesions noted Neuro General: alert and awake Psych Appearance: grossly normal Affect: normal affect Objective Labs Result Diagrams: 10/24/18 14:54 10/24/18 14:54 Labs: Laboratory Results - last 24 hr 10/24/18 10/24/18 10/24/18 14:54 14:54 14:54 WBC 18.4 H RBC 4.02 L Hgb 12.9 L Hct 38.4 L MCV 95.6 MCH 32.0 MCHC 33.5 RDW 13.6 Plt Count 396 Neut % (Auto) 73.6 Lymph % (Auto) 14.0 L [place] % (Auto) 10.3 Eos % (Auto) 1.1 L Baso % (Auto) 1.0 Neut # (Auto) 97522 H Lymph # (Auto) 2600 [place] # (Auto) 1900 H Eos # (Auto) 200 Baso # (Auto) 200 H Sodium 136 L Potassium 4.0 Chloride 100 Carbon Dioxide 25 BUN 22 H Creatinine 1.10 Estimated GFR > 60.0 BUN/Creatinine Ratio 20.0 Glucose 114 H Lactate Calcium 9.9 Procalcitonin 0.06 Urine Color Urine Appearance Urine pH Ur Specific [place] Urine Protein Urine Glucose (UA) Urine Ketones Urine Occult Blood Urine Nitrate Urine Bilirubin Urine Ictotest Urine Urobilinogen Ur Leukocyte Esterase Urine RBC Urine WBC Ur Squamous Epith Cells Amorphous Sediment Urine Bacteria Urine Mucus Ur Culture Indicated? 10/24/18 10/24/18 14:54 17:45 WBC RBC Hgb Hct MCV MCH MCHC RDW Plt Count Neut % (Auto) Lymph % (Auto) [place] % (Auto) Eos % (Auto) Baso % (Auto) Neut # (Auto) Lymph # (Auto) [place] # (Auto) Eos # (Auto) Baso # (Auto) Sodium Potassium Chloride Carbon Dioxide BUN Creatinine Estimated GFR BUN/Creatinine Ratio Glucose Lactate 1.3 Calcium Procalcitonin Urine Color Brown Urine Appearance Turbid Urine pH 6.5 Ur Specific [place] 1.025 Urine Protein 2+ H Urine Glucose (UA) Negative Urine Ketones Trace H Urine Occult Blood 3+ H Urine Nitrate Positive Urine Bilirubin 1+ H Urine Ictotest Positive H Urine Urobilinogen 1.0 Ur Leukocyte Esterase 2+ H Urine RBC 5-10/hpf H Urine WBC >100/hpf H Ur Squamous Epith Cells 0-1 /hpf Amorphous Sediment 3+ Urine Bacteria Many (>30) H Urine Mucus 2+ H Ur Culture Indicated? 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 His elevated WBC may constitute cystitis alone however given L CVA tenderness and LLQ tenderness acute non obstructed pylonephritis and/or diverticulitis also possible. Close review of CT scan does show fat stranding ajacent to both kidneys and also sigmoid colon thickening without fluid collections to suggest abscess - somewhat supports both dx. 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 Will need colon resection with or without reestablishment of continuity. However this is done after pt stabilization and clearance of infection from kidney/colon- unlikely to perform this admission . Will require pre op eval including diagnostic colonoscopy. Agree with IV abx tx of acute infection (pylo vs diverticulitis) Does not need urinary catheter. We will continue to follow with you
--- NOTE | 2018-10-24 19:52 | P.CONS_ITS ---
History of Present Illness Date Patient Seen: 10/24/18 Time Patient Seen: 19:00 Chief complaint: Kidney stones Reason for consult: Colovesicular fistula Narrative: 83-year-old man with mild dementia presents to ED after protracted course of antibiotic therapy for urinary tract infection. Was on trimethoprim sulfamethoxazole for at least a week followed most recently by amp/sulbactam x 10days. In this setting pt began to develop LLQ/L flank pain and he was refered to ED for further evaluation with renal stone proticol CT demonstrating signficant air in bladder and urethra and extensive diverticular disease c/w colovesicular fistula. Upon further questioning pts pain symptom has been at least 10days of dysuria and in retrospect pneumaturia with each void. He endorses mild LLQ pain but no carol flank pain. Overal he feels well today and is hungery. Pt has a hx of colon polyps. Last colonoscopy 4-5yrs ago. Family hx of colon cancer in mother. No hx of crohns. No pelvic radiation Reviewing pts labs he has had a elevated WBC in the low to upper teens since May 01. [facility] Medical History (Updated 10/24/18 @ 20:01 by Jarett Gonzalez MD) Colovesical fistula (Acute) Fall (Acute) Hypertension (Acute) Right femoral fracture (Acute) Social History household members: spouse Smoking Status: Never smoker alcohol intake: never Social History household members: spouse Smoking Status: Never smoker alcohol intake: never Meds Home Medications Medication Instructions Recorded Confirmed Type tamsulosin [Flomax] 0.4 mg PO BEDTIME 09/13/17 10/24/18 History aspirin 162 mg PO QPM 05/10/18 10/24/18 History calcium carb-mag ox-zinc sulf 1 tab PO QAM 05/10/18 10/24/18 History cholecalciferol (vitamin D3) 2,000 unit PO QPM 05/10/18 10/24/18 History [Vitamin D3] donepezil 15 mg PO QPM 05/10/18 10/24/18 History epinephrine [EpiPen 2-Lorenzo] 0.3 ml IM PRN PRN 05/10/18 10/24/18 History fluoxetine 5 mg PO DAILY 05/10/18 10/24/18 History meclizine 25 mg PO BID PRN 05/10/18 10/24/18 History multivitamin 1 tab PO DAILY 05/10/18 10/24/18 History omega 4-qgc-vgl-fish oil 1,200 mg PO DAILY 05/10/18 10/24/18 History ranitidine HCl 75 mg PO BEDTIME 05/10/18 10/24/18 History ranitidine HCl 150 mg PO QAM 05/10/18 10/24/18 History tramadol 50 mg PO BID #40 tab 05/13/18 10/24/18 Rx lorazepam 0.5 mg PO BID #20 tab 05/14/18 10/24/18 Rx Allergies Allergy/AdvReac Type Severity Reaction Status Date / Time bee venom protein (honey bee) Allergy Severe Anaphylaxis Verified 10/24/18 14:19 gabapentin AdvReac Intermediate Hallucinati Verified 10/24/18 14:19 ng hydromorphone [From Dilaudid] AdvReac Intermediate Vomiting Verified 10/24/18 14:19 Review of Systems Constitutional Constitutional: Denies fever(s) Eyes Eyes: Denies bulging eyes ENT Ears, Nose, Mouth, and Throat: No lip swelling Cardiovascular Cardiovascular: Denies generalize swelling Respiratory Respiratory: Denies stridor Gastrointestinal Gastrointestinal: Denies coffee ground emesis Musculoskeletal Musculoskeletal: Denies loss of height Integumentary/Breasts Skin/Breast: Denies wounds Neurologic Neurologic: Denies abnormal speech and Denies confusion Psychiatric Psychiatric: Denies confusion Endocrine Endocrine: Denies deepening of the voice Hematologic/Lymphatic Hematologic/Lymphatic: Denies lymphadenopathy Allergic/Immunologic Allergic/Immunologic: Denies lip swelling Exam Vital Signs (past 8 hours): - 10/24/18 14:15 10/24/18 14:30 10/24/18 15:00 Temperature 98.4 F Pulse Rate 116 H 96 H 96 H Respiratory Rate 15 20 19 Blood Pressure 134/70 Blood Pressure [Left Arm] 130/66 146/65 H Pulse Oximetry 95 97 10/24/18 16:50 10/24/18 18:03 Temperature 100.0 F H Pulse Rate 85 87 Respiratory Rate 16 16 Blood Pressure 121/58 L Blood Pressure [Left Arm] 123/59 L Pulse Oximetry 99 97 Oxygen Delivery Method Room Air Narrative Exam Narrative: Oriented to year, month, day, hr, and season. knows in [facility]. Const General: cooperative Orientation: alert HENOK Head: normal to inspection Nose: nares normal Mouth: oral mucosae normal and lip normal Eyes Eyelids: eyelids normal Conjunctivae: conjunctivae normal Sclera: sclerae normal Neck Neck: supple and other (No thyromegally) Chest Chest: other (LCTAB , regular respiratory effort) Cardio Rhythm: regular rhythm Heart Sounds: S1 normal, S2 normal, no gallops, no murmurs and no rubs GI Other: Abdomen without surgical incisions. non distended, dull to precussion. mild to moderately tender over LLQ. no peritoneal signs. Other: CVA tenderness to percussion on L Skin General: no rashes or lesions noted Neuro General: alert and awake Psych Appearance: grossly normal Affect: normal affect Objective Labs Result Diagrams: 10/24/18 14:54 10/24/18 14:54 Labs: Laboratory Results - last 24 hr 10/24/18 10/24/18 10/24/18 14:54 14:54 14:54 WBC 18.4 H RBC 4.02 L Hgb 12.9 L Hct 38.4 L MCV 95.6 MCH 32.0 MCHC 33.5 RDW 13.6 Plt Count 396 Neut % (Auto) 73.6 Lymph % (Auto) 14.0 L [place] % (Auto) 10.3 Eos % (Auto) 1.1 L Baso % (Auto) 1.0 Neut # (Auto) 13563 H Lymph # (Auto) 2600 [place] # (Auto) 1900 H Eos # (Auto) 200 Baso # (Auto) 200 H Sodium 136 L Potassium 4.0 Chloride 100 Carbon Dioxide 25 BUN 22 H Creatinine 1.10 Estimated GFR > 60.0 BUN/Creatinine Ratio 20.0 Glucose 114 H Lactate Calcium 9.9 Procalcitonin 0.06 Urine Color Urine Appearance Urine pH Ur Specific [place] Urine Protein Urine Glucose (UA) Urine Ketones Urine Occult Blood Urine Nitrate Urine Bilirubin Urine Ictotest Urine Urobilinogen Ur Leukocyte Esterase Urine RBC Urine WBC Ur Squamous Epith Cells Amorphous Sediment Urine Bacteria Urine Mucus Ur Culture Indicated? 10/24/18 10/24/18 14:54 17:45 WBC RBC Hgb Hct MCV MCH MCHC RDW Plt Count Neut % (Auto) Lymph % (Auto) [place] % (Auto) Eos % (Auto) Baso % (Auto) Neut # (Auto) Lymph # (Auto) [place] # (Auto) Eos # (Auto) Baso # (Auto) Sodium Potassium Chloride Carbon Dioxide BUN Creatinine Estimated GFR BUN/Creatinine Ratio Glucose Lactate 1.3 Calcium Procalcitonin Urine Color Brown Urine Appearance Turbid Urine pH 6.5 Ur Specific [place] 1.025 Urine Protein 2+ H Urine Glucose (UA) Negative Urine Ketones Trace H Urine Occult Blood 3+ H Urine Nitrate Positive Urine Bilirubin 1+ H Urine Ictotest Positive H Urine Urobilinogen 1.0 Ur Leukocyte Esterase 2+ H Urine RBC 5-10/hpf H Urine WBC >100/hpf H Ur Squamous Epith Cells 0-1 /hpf Amorphous Sediment 3+ Urine Bacteria Many (>30) H Urine Mucus 2+ H Ur Culture Indicated? 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 His elevated WBC may constitute cystitis alone however given L CVA tenderness a nd LLQ tenderness acute non obstructed pylonephritis and/or diverticulitis also possible. Close review of CT scan does show fat stranding ajacent to both kidneys and also sigmoid colon thickening without fluid collections to suggest abscess - somewhat supports both dx. 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 Will need colon resection with or without reestablishment of continuity. However this is done after pt stabilization and clearance of infection from kidney/colon- unlikely to perform this admission . Will require pre op eval including diagnostic colonoscopy. Agree with IV abx tx of acute infection (pylo vs diverticulitis) Does not need urinary catheter. We will continue to follow with you
--- NOTE | 2018-10-24 20:59 | P.HP_ITS ---
History of Present Illness Date Patient Seen: 10/24/18 Time Patient Seen: 20:15 Chief complaint: Kidney stones Narrative: Mr Greg Arriola is an 81-year-old male with a history of anemia, hypertension not currently on medication, cholelithiasis, GERD, colon polyps, benign prostatic hypertrophy and left hip replacement post fall who presents today with complaints of worsening left lower quadrant pain. Patient had been previously treated by his primary care for cystitis having initially been placed on Bactrim to which the patient developed vomiting and transition to Augmentin for 10 days. The patient states the total duration of his abdominal pain has been approximately 2 weeks however has demonstrated an elevated white count since April 2018. The patient denies associated complaints of fevers or chills. He does have rhinitis related to allergies but denies significant c ongestion or sore throat. He denies neck or back pain and has no chest pain or palpitations, shortness of breath cough or wheezing. He denies gastric pain reports fair appetite and has previously had constipation which appears to been related to opiate use but none recent. Arrival in the ER the patient is afebrile with a temperature of 98.4?, tachycardic at 116 with a blood pressure 134/70, respirations of 15 saturating 95% on room air. Abdominal/pelvis CT finds extensive sigmoid diverticulosis with acute diverticulitis and fistulous communication between the sigmoid colon and bladder, air within the bladder and the bladder diverticulum and the penile urethra. Incidental finding of prominent appendix with hyperdense material and gallstones. On laboratory analysis the patient has with an elevated white count of 18.4, hemoglobin of 12.9 hematocrit 38.4 and platelets of 396. His lactate is 1.3 with a procalcitonin of 0.06. On chemistries is electrolytes are within normal limits and has a BUN of 22 and creatinine of 1.1 with a nonfasting glucose of 114. Dr. Gonzalez has been consulted and will evaluate the patient. Patient History Medical History (Updated 10/24/18 @ 21:04 by MARLYN Fisher) Anemia (Acute) Cholelithiasis (Acute) Colovesical fistula (Acute) Compression fracture of L1 vertebra (Acute) Gastroesophageal reflux (Acute) Pubic ramus fracture (Acute) Fall (Acute) Hypertension (Acute) Right femoral fracture (Acute) Surgical History (Updated 10/24/18 @ 21:04 by MARLYN Fisher) History of left hip replacement (Acute) Family History (Updated 10/24/18 @ 21:20 by MARLYN Fisher) Father Lymphoma Mother Cancer Dementia Brother Cancer Smoker Social History household members: spouse Smoking Status: Never smoker alcohol intake: never Family & Social History Social History: household members spouse Prior Living Arrangements House Safety & Behavioral: Feels Safe in Current Yes Environment Been Physically Hurt or No Threatened By a Person Suicidal Ideation Description None Suicide Plan Description No Plan Tobacco & Substance use: Smoking Status Never smoker alcohol intake never alcohol intake frequency 0-2 drinks per day Substance Use Type does not use Comment: The patient lives on [facility] with his to whom he has been for 47 years. Patient provides a history that his father from lymphoma and his mother had rectal cancer and dementia. He has 1 brother who has been a smoker and has lung cancer and 1 sister he describes in good health. Smoking: The patient indicates he did smoke a pipe occasionally for approximately 1 year having quit many years ago. Alcohol: Patient denies alcohol consumption Substance use: The patient denies recreation pharmaceuticals, herbal or cannabis products. Advanced directives: In direct discussion with the patient and his the patient states wishes to be a FULL CODE. He designates his Maira to be his surrogate decision maker. Meds Home Medications Medication Instructions Recorded Confirmed Type tamsulosin [Flomax] 0.4 mg PO BEDTIME 09/13/17 10/24/18 History aspirin 162 mg PO QPM 05/10/18 10/24/18 History calcium carb-mag ox-zinc sulf 1 tab PO QAM 05/10/18 10/24/18 History cholecalciferol (vitamin D3) 2,000 unit PO QPM 05/10/18 10/24/18 History [Vitamin D3] donepezil 15 mg PO QPM 05/10/18 10/24/18 History epinephrine [EpiPen 2-Lorenzo] 0.3 ml IM PRN PRN 05/10/18 10/24/18 History fluoxetine 5 mg PO DAILY 05/10/18 10/24/18 History meclizine 25 mg PO BID PRN 05/10/18 10/24/18 History multivitamin 1 tab PO DAILY 05/10/18 10/24/18 History omega 3-sgq-wpm-fish oil 1,200 mg PO DAILY 05/10/18 10/24/18 History ranitidine HCl 75 mg PO BEDTIME 05/10/18 10/24/18 History ranitidine HCl 150 mg PO QAM 05/10/18 10/24/18 History tramadol 50 mg PO BID #40 tab 05/13/18 10/24/18 Rx lorazepam 0.5 mg PO BID #20 tab 05/14/18 10/24/18 Rx Allergies Allergy/AdvReac Type Severity Reaction Status Date / Time bee venom protein (honey bee) Allergy Severe Anaphylaxis Verified 10/24/18 14:19 gabapentin AdvReac Intermediate Hallucinati Verified 10/24/18 14:19 ng hydromorphone [From Dilaudid] AdvReac Intermediate Vomiting Verified 10/24/18 14:19 Review of Systems Review of Systems All systems reviewed & are unremarkable except as noted in HPI and below Exam Vital Signs (past 8 hours): - 10/24/18 14:15 10/24/18 14:30 10/24/18 15:00 Temperature 98.4 F Pulse Rate 116 H 96 H 96 H Respiratory Rate 15 20 19 Blood Pressure 134/70 Blood Pressure [Left Arm] 130/66 146/65 H Pulse Oximetry 95 97 10/24/18 16:50 10/24/18 18:03 Temperature 100.0 F H Pulse Rate 85 87 Respiratory Rate 16 16 Blood Pressure 121/58 L Blood Pressure [Left Arm] 123/59 L Pulse Oximetry 99 97 Oxygen Delivery Method Room Air Narrative Exam Narrative: GENERAL APPEARANCE: well developed, well nourished, in no acute distress. HEAD: Normocephalic, atraumatic, no scalp lesions. EYES: pupils equal, round, reactive to light and accommodation, sclera non- icteric, extraocular movement intact without nystagmus. EARS: normal external structures, no ear pain NOSE: Mild left maxillary sinus tenderness to percussion ORAL CAVITY: mucosa moist without lesions or exudate, own dentition, palate normal, tongue in midline. THROAT: normal, no erythema, no exudate, pharynx normal, uvula midline. NECK/THYROID: neck supple, no jugular venous distention, no carotid bruit, no thyromegaly, trachea midline. LYMPH NODES: no cervical or supraclavicular lymphadenopathy. SKIN: warm and dry, no suspicious lesions, no rashes, good turgor. HEART: regular rate and rhythm, S1-S2 without murmur, no rubs or gallops, brisk capillary refill, 2+ dorsalis pedis pulses, no edema LUNGS: clear to auscultation bilaterally, no coarseness crackles or wheezing, no cough present CHEST: Symmetrical movement, no accessory muscle use, no pain to AP and lateral compression. ABDOMEN: Soft, no distention, no epigastric tenderness, left lower quadrant pain on palpation, no guarding or peritoneal signs, no organomegaly, no flank tenderness, active bowel tones. BACK: Normal curvature, nontender to palpation, no CVA tenderness on palpation EXTREMITIES: moves all extremities, strength is 5/5 and symmetrical, no deformities or joint effusions. NEUROLOGIC: AAO x4, no focal neurologic deficits, motor strength normal upper and lower extremities, sensory exam intact to light touch, hearing grossly normal to speech. PSYCH: alert, cognitive function intact, good eye contact, patient appears stoic, flat affect, shortened responses to questions. Objective Labs Result Diagrams: 10/24/18 14:54 10/24/18 14:54 Labs: Laboratory Results - last 24 hr 10/24/18 10/24/18 10/24/18 14:54 14:54 14:54 WBC 18.4 H RBC 4.02 L Hgb 12.9 L Hct 38.4 L MCV 95.6 MCH 32.0 MCHC 33.5 RDW 13.6 Plt Count 396 Neut % (Auto) 73.6 Lymph % (Auto) 14.0 L [place] % (Auto) 10.3 Eos % (Auto) 1.1 L Baso % (Auto) 1.0 Neut # (Auto) 69735 H Lymph # (Auto) 2600 [place] # (Auto) 1900 H Eos # (Auto) 200 Baso # (Auto) 200 H Sodium 136 L Potassium 4.0 Chloride 100 Carbon Dioxide 25 BUN 22 H Creatinine 1.10 Estimated GFR > 60.0 BUN/Creatinine Ratio 20.0 Glucose 114 H Lactate Calcium 9.9 Procalcitonin 0.06 Urine Color Urine Appearance Urine pH Ur Specific [place] Urine Protein Urine Glucose (UA) Urine Ketones Urine Occult Blood Urine Nitrate Urine Bilirubin Urine Ictotest Urine Urobilinogen Ur Leukocyte Esterase Urine RBC Urine WBC Ur Squamous Epith Cells Amorphous Sediment Urine Bacteria Urine Mucus Ur Culture Indicated? 10/24/18 10/24/18 14:54 17:45 WBC RBC Hgb Hct MCV MCH MCHC RDW Plt Count Neut % (Auto) Lymph % (Auto) [place] % (Auto) Eos % (Auto) Baso % (Auto) Neut # (Auto) Lymph # (Auto) [place] # (Auto) Eos # (Auto) Baso # (Auto) Sodium Potassium Chloride Carbon Dioxide BUN Creatinine Estimated GFR BUN/Creatinine Ratio Glucose Lactate 1.3 Calcium Procalcitonin Urine Color Brown Urine Appearance Turbid Urine pH 6.5 Ur Specific [place] 1.025 Urine Protein 2+ H Urine Glucose (UA) Negative Urine Ketones Trace H Urine Occult Blood 3+ H Urine Nitrate Positive Urine Bilirubin 1+ H Urine Ictotest Positive H Urine Urobilinogen 1.0 Ur Leukocyte Esterase 2+ H Urine RBC 5-10/hpf H Urine WBC >100/hpf H Ur Squamous Epith Cells 0-1 /hpf Amorphous Sediment 3+ Urine Bacteria Many (>30) H Urine Mucus 2+ H Ur Culture Indicated? Specimen cultured Assessment & Plan Assessment & Plan narrative: This is an 83-year-old male patient who presents to the hospital for increasing left lower quadrant pain with identified colovesical fistula and diverticulitis. 1. Acute abdominal pain, present on admission. -patient has had abdominal pain for approximately 2 weeks treated as an outpatient with Bactrim and subsequently Augmentin for 10 days. -patient presents for worsening left lower quadrant abdominal pain without complaints fevers or chills, nausea vomiting or diarrhea. -patient noted changes in urine passing material and air from the urethra on voiding. -CT scan identifies diverticulitis with a colovesical fistula. Lactate is 1.3 and procalcitonin 0.06. -patient started on Zosyn 3.375 g IV every 8 hours -blood cultures and urine cultures pending, will follow CBC and procalcitonin. 2. Colovesical fistula, present on admission -patient voiding brown turbid urine which is positive for blood, leukocyte esterase, white cells and many bacteria. -patient received Zosyn 3.375 g IV every 8 hours -thank you to Dr. Gonzalez for consulting and recommendations: Colovesicular fistula, does not expect spontaneous closure, recommends colon resection following patient's stabilization and treatment of underlying infection with a preoperative colonoscopy. -no urinary catheter placement on recommendation of General surgery. -IV normal saline at 100 cc/hour -heart healthy diet 3. Gastroesophageal reflux disorder, stable. -Will continue patient's home medication of ranitidine 75 mg at bedtime. 4. Hypertension, stable. -prior history of hypertension no longer on medication, blood pressure on admission was 134/70. -will follow vital signs. 5. Benign prostatic hypertrophy, stable. -patient with acute cystitis with pain on urination, but no reduction in urinary stream. -patient previously been prescribed tamsulosin but states he has not been taking the medication recently. 6. Dementia, stable. -patient appears alert with good recall -will continue home medication of donepezil 15 mg nightly. -patient routinely takes fluoxetine 5 mg daily, fluoxetine 5 mg is not available from the pharmacy, home medication is not available, patient agrees to dose increased to 10 mg. The patient is admitted to the hospital due to the severity of symptoms, risk f or complications and adverse events. He is admitted as an inpatient with surgery consult with expected length of stay to be greater than 2 midnights. Time Spent With Patient Time with patient: 15-24 minutes Quality VTE Deep Vein Thrombosis/Pulmonary Embolism Present on Admission: No
[2018-10-24] MEDS: SODIUM CHLORIDE 0.9% 1,000 ML 100 ML IV (21:08)
[2018-10-24 23:00] VITALS: O2SAT 95
[2018-10-25] VITALS (9 sets, daily range): BP systolic 99–145; BP diastolic 46–68; PULSE 67–101; RESP 15–16; TEMP 36.3–37.2; O2SAT 93–99
[2018-10-25] MEDS: PIPERACILLIN-TAZO 3.375 GM/50 ML FROZ.PIGGY IV ×4 (01:52→22:17)
[2018-10-25 05:40] LABS: Add Manual Diff / Slide Review NO; Basophils Absolute Auto 100 /uL (0-100); Basophils Percent Auto 1.1 % (0-2); Eosinophils Absolute Auto 300 /uL (0-450); Eosinophils Percent Auto 2.6 % (2-4); Hemoglobin 10.4 g/dL (13.5-17.5); Lymphocytes Absolute Auto 3300 /uL (1100-4500); Lymphocytes Percent Auto 27.6 % (25-40); Mean Corpuscular HGB Conc 33.7 % (30-36); Mean Corpuscular Hemoglobin 32.2 PG (26-34); Mean Corpuscular Volume 95.7 fL (80-100); Monocytes Absolute Auto 1400 /uL (0-900); Monocytes Percent Auto 11.4 % (3-14); Neutrophils Absolute Auto 6900 /uL (1500-7000); Neutrophils Percent Auto 57.3 % (50-75); Platelet Count 258 X10^3/uL (150-400); Red Blood Cell Count 3.24 X10^6/uL (4.5-5.9); Red Cell Distribution Width 13.6 % (11.6-14.8)
[2018-10-25 05:54] LABS: Blood Urea Nitrogen 18 mg/dL (9-20); Calcium 8.7 mg/dL (8.4-10.2); Carbon Dioxide 25 mmol/L (22-32); Chloride 104 mmol/L (98-107); Estimated Glomerular Filt Rate > 60.0 mL/min (>60); Glucose 87 mg/dL (80-110); HEMOLYSIS < 15 (0-50); Potassium 3.6 mmol/L (3.4-5.1); Sodium 135 mmol/L (137-145)
[2018-10-25 06:06] LABS: Procalcitonin < 0.05 ng/mL (<0.5)
[2018-10-25] MEDS: SODIUM CHLORIDE 0.9% 1,000 ML 100 ML IV (08:06)
--- NOTE | 2018-10-25 08:59 | CM.DANOTE ---
DCP:Case received, EMR reviewed and met with patient. Introduced self and role. Obtained some baseline health information from patient. DCP assessment template completed with information currently available. Patient is an 83 year old male who admitted yesterday afternoon to the care of the hospitalist team. PCP: Dr. Varghese. Payer: confirmed: [facility]. Patient came to hospital secondary to lower quadrant pain. Patient has history of kidney stones, as well as cystitis, which he is being treated with antibiotic. Patient also has history of colorectal fistula. Patient stated, this is why he gets so many bladder infections. He is not sure if they will do surgery, he anticipates meeting with the provider today. He lives with his , Maira, of 47 years on [place]. He stated that he gets around with a walker/wheel-chair. He does not drive. P: DCP to continue to follow closely. Patient should be able to discharge home when he is medically stable. Aditi Acosta RN/Derrick Helper
[2018-10-25] MEDS: ENOXAPARIN 40 MG/0.4 ML SYRINGE SUBCUT (10:06)
[2018-10-25] MEDS: FLUoxetine 10 MG CAPSULE PO (10:07)
--- NOTE | 2018-10-25 11:30 | P.PN_ITS ---
Subjective Date Patient Seen: 10/25/18 Interval history: Patient is an 83-year-old male admitted due to acute diver ticulitis with failure of outpatient oral antibiotics and 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 Patient reports improvement in left-sided abdominal pain. Denies nausea or vomi ting. Last bowel movement was yesterday. Exam Vital Signs (past 8 hours): - 10/25/18 06:35 10/25/18 08:28 10/25/18 10:43 Temperature 97.7 F 97.3 F L Pulse Rate 67 74 Respiratory Rate 16 16 Blood Pressure 118/62 117/62 Pulse Oximetry 96 96 96 Oxygen Delivery Method Room Air Oxygen Flow Rate 0 Narrative Exam Narrative: GENERAL: Alert and pleasant in no acute distress HEENT: Head normocephalic, atraumatic. Mucous membranes moist. CHEST: Clear to auscultation bilaterally. CARDIAC: Regular rate and rhythm. ABDOMEN: Nondistended, soft, left-sided tenderness without rebound or guarding EXTREMITIES: no edema. NEUROLOGICAL: Alert, pleasant, no focal findings SKIN: Warm, dry, no petechiae, no rash Objective Labs Result Diagrams: 10/25/18 05:30 10/25/18 05:30 Labs: Laboratory Results - last 24 hr 10/24/18 10/24/18 10/24/18 14:54 14:54 14:54 WBC 18.4 H RBC 4.02 L Hgb 12.9 L Hct 38.4 L MCV 95.6 MCH 32.0 MCHC 33.5 RDW 13.6 Plt Count 396 Neut % (Auto) 73.6 Lymph % (Auto) 14.0 L [place] % (Auto) 10.3 Eos % (Auto) 1.1 L Baso % (Auto) 1.0 Neut # (Auto) 37859 H Lymph # (Auto) 2600 [place] # (Auto) 1900 H Eos # (Auto) 200 Baso # (Auto) 200 H Sodium 136 L Potassium 4.0 Chloride 100 Carbon Dioxide 25 BUN 22 H Creatinine 1.10 Estimated GFR > 60.0 BUN/Creatinine Ratio 20.0 Glucose 114 H Lactate Calcium 9.9 Procalcitonin 0.06 Urine Color Urine Appearance Urine pH Ur Specific [place] Urine Protein Urine Glucose (UA) Urine Ketones Urine Occult Blood Urine Nitrate Urine Bilirubin Urine Ictotest Urine Urobilinogen Ur Leukocyte Esterase Urine RBC Urine WBC Ur Squamous Epith Cells Amorphous Sediment Urine Bacteria Urine Mucus Ur Culture Indicated? 10/24/18 10/24/18 10/25/18 14:54 17:45 05:30 WBC RBC Hgb Hct MCV MCH MCHC RDW Plt Count Neut % (Auto) Lymph % (Auto) [place] % (Auto) Eos % (Auto) Baso % (Auto) Neut # (Auto) Lymph # (Auto) [place] # (Auto) Eos # (Auto) Baso # (Auto) Sodium Potassium Chloride Carbon Dioxide BUN Creatinine Estimated GFR BUN/Creatinine Ratio Glucose Lactate 1.3 Calcium Procalcitonin < 0.05 Urine Color Brown Urine Appearance Turbid Urine pH 6.5 Ur Specific [place] 1.025 Urine Protein 2+ H Urine Glucose (UA) Negative Urine Ketones Trace H Urine Occult Blood 3+ H Urine Nitrate Positive Urine Bilirubin 1+ H Urine Ictotest Positive H Urine Urobilinogen 1.0 Ur Leukocyte Esterase 2+ H Urine RBC 5-10/hpf H Urine WBC >100/hpf H Ur Squamous Epith Cells 0-1 /hpf Amorphous Sediment 3+ Urine Bacteria Many (>30) H Urine Mucus 2+ H Ur Culture Indicated? Specimen cultured 10/25/18 10/25/18 05:30 05:30 WBC 12.0 H RBC 3.24 L Hgb 10.4 L Hct 31.0 L MCV 95.7 MCH 32.2 MCHC 33.7 RDW 13.6 Plt Count 258 Neut % (Auto) 57.3 Lymph % (Auto) 27.6 [place] % (Auto) 11.4 Eos % (Auto) 2.6 Baso % (Auto) 1.1 Neut # (Auto) 6900 Lymph # (Auto) 3300 [place] # (Auto) 1400 H Eos # (Auto) 300 Baso # (Auto) 100 Sodium 135 L Potassium 3.6 Chloride 104 Carbon Dioxide 25 BUN 18 Creatinine 1.00 Estimated GFR > 60.0 BUN/Creatinine Ratio 18.0 Glucose 87 Lactate Calcium 8.7 Procalcitonin Urine Color Urine Appearance Urine pH Ur Specific [place] Urine Protein Urine Glucose (UA) Urine Ketones Urine Occult Blood Urine Nitrate Urine Bilirubin Urine Ictotest Urine Urobilinogen Ur Leukocyte Esterase Urine RBC Urine WBC Ur Squamous Epith Cells Amorphous Sediment Urine Bacteria Urine Mucus Ur Culture Indicated? Assessment & Plan Assessment & Plan narrative: Patient is an 83-year-old male admitted due to acute diverticulitis with failure of outpatient oral antibiotics and 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 1. Acute sigmoid diverticulitis with colovesical fistula -improving with IV antibiotic with decrease in tenderness and decrease in WBC since admission, T-max 100.0? on admission and subsequently has been afebrile -patient has had abdominal pain for approximately 2 weeks treated as an outpatient with Bactrim and subsequently Augmentin for 10 days. -patient noted changes in urine passing material and air from the urethra on voiding. -CT scan identifies extent sigmoid diverticulosis with acute diverticulitis with a colovesical fistula. No evidence of abscess. Lactate is 1.3 and procalcitonin 0.06. -blood cultures negative and urine cultures growing gram-negative bacilli -continue Zosyn 3.375 g IV q.6 hours -decreased normal saline rate to 42 cc/hours -tolerating heart healthy diet -he will need outpatient surgical follow-up 2. Colovesical fistula, present on admission -patient voiding brown turbid urine which is positive for blood, leukocyte es terase, white cells and many bacteria. -patient received Zosyn 3.375 g IV every 8 hours -thank you to Dr. Gonzalez for consulting and recommendations: Colovesicular fistula, does not expect spontaneous closure, recommends colon resection following patient's stabilization and treatment of underlying infection with a preoperative colonoscopy. -no urinary catheter placement on recommendation of General surgery. -IV normal saline -heart healthy diet 3. Acute cystitis, possible acute bacterial pyelonephritis, secondary to colovesical fistula -urine culture positive for gram-negative bacilli -Dr. Gonzalez noted left CVAT and perinephric stranding on his review CT imaging -treat with Zosyn as above 5. Gastroesophageal reflux disorder, stable. -continue ranitidine per home routine 6. Hypertension, stable. -prior history of hypertension no longer on medication, blood pressure on admi ssion was 134/70. -will follow vital signs. 7. Benign prostatic hypertrophy, stable. -patient with acute cystitis with pain on urination, but no reduction in urinary stream. -patient previously been prescribed tamsulosin but states he has not been taking the medication recently. 8. Dementia, stable. -patient appears alert with good recall -will continue home medication of donepezil 15 mg nightly. -patient routinely takes fluoxetine 5 mg daily, fluoxetine 5 mg is not available from the pharmacy, home medication is not available, patient agrees to dose increased to 10 mg. Disposition: Continue IV antibiotic management. Anticipate he will need another couple days in the hospital then discharge home on oral antibiotics with outpatient surgical follow-up. Quality VTE Deep Vein Thrombosis/Pulmonary Embolism Present on Admission: No
--- NOTE | 2018-10-25 14:26 | CM.DPC ---
DCP Cont: Nurse, Stacey, stated that , Maira was here visiting patient. She voiced concerns that appears fragile as well. She stated that her does not normally get around at home, is mostly in wheel-chair. Suggested that we ask Dr. Spencer for a P.T. order so they can work with him before returning home. Met with , Maira. She mentioned that patient is in wheel-chair, but can ambulate with walker. She also mentioned that they have caregivers coming into the home for a few hours a day. Maira stated that she assists her with showers. They have no immediate family in the area, they have an autistic son that they see on the week-ends. They also have meals on wheels, as well. Asked Maira if patient has had any recent falls at home, and she stated, he has not fallen since April. Asked and if they felt that they needed more support before going home. Mentioned, we used to have home health, and found them to be quite helpful. Asked about having nursing, P.T, and O.T come in and they stated, this would be ok. Met briefly with Dr. Spencer, and had him sign face to face. Dr. Spencer anticipates patient being here for possibly another couple of days. [facility] will be the agency used, since they live in [place]. Completed face to face at this time. P: DCP to follow closely. Consult and collaborate with physical therapy team. Order home health from [facility], when patient is getting close to discharge. Aditi Acosta RN/Manager Reporting
[2018-10-25] MEDS: ASPIRIN EC 81 MG TABLET 162 MG PO (17:26)
[2018-10-25] MEDS: DONEPEZIL 5 MG TABLET 15 MG PO (17:29)
[2018-10-25] MEDS: SODIUM CHLORIDE 0.9% 1,000 ML 42 ML IV (18:08)
--- NOTE | 2018-10-25 18:47 | PC.NURSE ---
Pt awake, alert resting quietly in bed. Notifies staff when needing brief change. Admits to painful urination with voiding. Denies any other pain source. Appropriate mentation and conversation. Able to make needs and wants known to staff members. Spouse is present in chair at bedside.
--- NOTE | 2018-10-25 21:58 | PM.PN.1 ---
Subjective Date Patient Seen: 10/25/18 Time Patient Seen: 17:00 Interval history: Feeling overall improved Abdominal pain resolving tolerating a diet Still with significant dysuria Exam Vital Signs (past 8 hours): - 10/25/18 15:00 10/25/18 19:00 Temperature 97.9 F 98.9 F Pulse Rate 71 84 Respiratory Rate 16 16 Blood Pressure 120/61 145/68 H Pulse Oximetry 96 99 Oxygen Delivery Method Room Air Oxygen Flow Rate 0 Narrative Exam Narrative: Appears well Abdominal exam much improved from yesterday No longer with CVA tenderness, left lower quadrant tenderness is substantially improved as well Objective Labs Result Diagrams: 10/25/18 05:30 10/25/18 05:30 Labs: Laboratory Results - last 24 hr 10/25/18 10/25/18 10/25/18 05:30 05:30 05:30 WBC 12.0 H RBC 3.24 L Hgb 10.4 L Hct 31.0 L MCV 95.7 MCH 32.2 MCHC 33.7 RDW 13.6 Plt Count 258 Neut % (Auto) 57.3 Lymph % (Auto) 27.6 [place] % (Auto) 11.4 Eos % (Auto) 2.6 Baso % (Auto) 1.1 Neut # (Auto) 6900 Lymph # (Auto) 3300 [place] # (Auto) 1400 H Eos # (Auto) 300 Baso # (Auto) 100 Sodium 135 L Potassium 3.6 Chloride 104 Carbon Dioxide 25 BUN 18 Creatinine 1.00 Estimated GFR > 60.0 BUN/Creatinine Ratio 18.0 Glucose 87 Calcium 8.7 Procalcitonin < 0.05 Assessment & Plan Assessment & Plan narrative: 83-year-old man hospital day 2. Admitted for acute infection -the majority of the evidence points now towards sigmoid acute diverticulitis as the source of his leukocytosis. In addition he has a colovesicular fistula with likely chronic cystitis and grossly positive UA. He has failed antibiotic therapy with at least a week of Bactrim and another week of Augmentin. Now inpatient for IV antibiotics, on Zosyn Acute diverticulitis - Leukocytosis now improving from 18-12 today. Clinical exam improving as well. Will continue until majority of tenderness has resolved and leukocytosis is normalized. Would give a total of 14days starting with zosyn dosing Colovesicular fistula - Needs outpatient workup including colonoscopy, and significant in clinic discussion of risks benefits and process. Will likely need a sigmoid resection and takedown of colovesicular fistula. He has reasonable functional status. Recommendations: General Surgery shortly after discharge for perioperative planning - I am happy to see Continue IV abx as above Patient continues to improve, I have discussed the general pathway of colovesicular fistula management. Will see if still in house on Monday. Quality VTE Deep Vein Thrombosis/Pulmonary Embolism Present on Admission: No
[2018-10-26] VITALS (10 sets, daily range): BP systolic 99–155; BP diastolic 45–88; PULSE 66–116; RESP 16–18; TEMP 36.6–37.3; O2SAT 93–97
[2018-10-26] MEDS: PIPERACILLIN-TAZO 3.375 GM/50 ML FROZ.PIGGY IV ×4 (03:58→21:53)
[2018-10-26 05:46] LABS: Add Manual Diff / Slide Review NO; Basophils Absolute Auto 100 /uL (0-100); Basophils Percent Auto 0.6 % (0-2); Eosinophils Absolute Auto 300 /uL (0-450); Eosinophils Percent Auto 1.6 % (2-4); Hematocrit 30.7 % (41-53); Hemoglobin 10.3 g/dL (13.5-17.5); Lymphocytes Absolute Auto 3200 /uL (1100-4500); Lymphocytes Percent Auto 17.5 % (25-40); Mean Corpuscular HGB Conc 33.5 % (30-36); Mean Corpuscular Hemoglobin 32.1 PG (26-34); Mean Corpuscular Volume 95.9 fL (80-100); Monocytes Absolute Auto 2000 /uL (0-900); Neutrophils Absolute Auto 12500 /uL (1500-7000); Neutrophils Percent Auto 69.3 % (50-75); Platelet Count 254 X10^3/uL (150-400); Red Cell Distribution Width 13.7 % (11.6-14.8); White Blood Cell Count 18.1 X10^3/uL (4.5-11.0)
[2018-10-26] MEDS: ENOXAPARIN 40 MG/0.4 ML SYRINGE SUBCUT (08:21)
[2018-10-26] MEDS: FLUoxetine 10 MG CAPSULE PO (08:21)
--- NOTE | 2018-10-26 09:01 | PM.PN.1 ---
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 Patient reports most of his left-side abdominal pain has resolved. He also notes dysuria has resolved. Has good appetite and denies nausea or vomiting. Exam Vital Signs (past 8 hours): - 10/26/18 04:00 10/26/18 04:30 Temperature 98.9 F Pulse Rate 90 Respiratory Rate 16 Blood Pressure 99/77 Pulse Oximetry 94 96 Oxygen Delivery Method Room Air Oxygen Flow Rate 0 Narrative Exam Narrative: GENERAL: Alert and pleasant in no acute distress HEENT: Head normocephalic, atraumatic. Mucous membranes moist. CHEST: Clear to auscultation bilaterally. CARDIAC: Regular rate and rhythm. ABDOMEN: Nondistended, soft, no tenderness EXTREMITIES: no edema. NEUROLOGICAL: Alert, pleasant, no focal findings SKIN: Warm, dry, no petechiae, no rash Objective Labs Result Diagrams: 10/26/18 05:35 10/25/18 05:30 Labs: Laboratory Results - last 24 hr 10/26/18 05:35 WBC 18.1 H D RBC 3.20 L Hgb 10.3 L Hct 30.7 L MCV 95.9 MCH 32.1 MCHC 33.5 RDW 13.7 Plt Count 254 Neut % (Auto) 69.3 Lymph % (Auto) 17.5 L [place] % (Auto) 11.0 Eos % (Auto) 1.6 L Baso % (Auto) 0.6 Neut # (Auto) 00046 H Lymph # (Auto) 3200 [place] # (Auto) 2000 H Eos # (Auto) 300 Baso # (Auto) 100 Assessment & Plan Assessment & Plan narrative: Patient is an 83-year-old male admitted due to acute diverticulitis with failure of outpatient oral antibiotics and 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 1. Acute sigmoid diverticulitis with colovesical fistula -clinically improving with IV antibiotic, T-max 100.0? on admission and subsequently has been afebrile, abdominal pain and tenderness resolved, however his WBC has bumped up from day prior which we would like to see trending down -patient had abdominal pain and dysuria for approximately 2 weeks prior to admission treated as an outpatient with Bactrim and subsequently Augmentin for 10 days. -CT scan showed extensive sigmoid diverticulosis with acute diverticulitis with a colovesical fistula. No evidence of abscess. -blood cultures negative and urine cultures growing gram-negative bacilli -continue Zosyn 3.375 g IV q.6 hours, trend WBC, per surgery consult patient will need to complete 2 week antibiotic course IV and oral combined -D/C maintenance IV fluid -tolerating heart healthy diet -outpatient surgical follow-up for colonoscopy and likely subsequent sigmoid resection and takedown of colovesicular fistula 2. Colovesical fistula, present on admission -patient was experiencing dysuria and voiding brown turbid urine positive for blood, leukocyte esterase, white cells and many bacteria. -continue management as above -thank you to Dr. Gonzalez for consulting and recommendations: Colovesicular fistula, does not expect spontaneous closure, recommends outpatient colonoscopy, followed by colon resection and takedown of colovesicular fistula following patient's stabilization and treatment of underlying infection 3. Acute/subacute cystitis, secondary to colovesical fistula -urine culture positive for gram-negative bacilli, final pending -treat with Zosyn as above 5. Gastroesophageal reflux disorder, stable. -continue ranitidine per home routine 6. Benign prostatic hypertrophy, stable. -patient with acute cystitis with pain on urination, but no reduction in urinary stream. -patient previously been prescribed tamsulosin, on med list, but states he has not been taking the medication recently. 7. Dementia, mild, stable. -patient appears alert with good recall -will continue home medication of donepezil 15 mg nightly. -patient routinely takes fluoxetine 5 mg daily, fluoxetine 5 mg is not available from the pharmacy, home medication is not available, patient agrees to dose increased to 10 mg. Disposition: Continue IV antibiotic management. Anticipate he will need another couple days in the hospital then discharge home on oral antibiotics with outpatient surgical follow-up. Quality VTE Deep Vein Thrombosis/Pulmonary Embolism Present on Admission: No
--- NOTE | 2018-10-26 11:30 | PT.IIE ---
Current Diagnoses Diverticulitis of large intestine without perforation or abscess without bleeding (10/24/18) Surgical History (Last Updated 10/24/18 @ 21:04 by MARLYN Fisher) History of left hip replacement (Acute) Medical History (Last Updated 10/24/18 @ 21:04 by MARLYN Fisher) Anemia (Acute) Cholelithiasis (Acute) Colovesical fistula (Acute) Compression fracture of L1 vertebra (Acute) Gastroesophageal reflux (Acute) Pubic ramus fracture (Acute) Fall (Acute) Hypertension (Acute) Right femoral fracture (Acute) Physical Therapy Inpatient Evaluation/Re-Eval M1 PT/OT-IP Prior Functional Status Start: 10/26/18 08:18 Freq: NEEDED Status: Active Protocol: Document 10/26/18 09:10 (Rec: 10/26/18 11:30 [id number]) Medical Review Prior Functional Status Medical History Reviewed Yes Communication Able to make needs known. Mobility and Gait Per Pt and his , Pt is mostly w/c bound at home but able to amb as lisa for ~100ft before rest with FWW. He doesnt drive Activities of Daily Living and IADL's Pt has multiple CGs to come in during the week. One CG comes in 6 days/ week for couple hours to assist pt and his for IADLS. The other one comes in 3times/ week for an hour to mobilize pt with some HEP and ambulation with FWW. Pt's stated pt does need some assistance for supine to sit from bed, LEs dressing and showering. They are also using Meals on Wheels. Social History Household Members spouse Living Arrangements House Number of Floors (Floors) 3 or More Floors Number of Stairs To Enter/Railing? 3 [place] with L railing has ramp at entrance Home Environment High Toilet Walk in Shower Ramp Home Equipment Front Wheel Walker Four Wheel Walker Straight Cane Raised Toilet Seat w/Armrests Shower Seat with Backrest Long Handled Shoe Horn Desktop Technician Sock Aid Bed Rails Grab Bars Near Toilet Grab Bars In Shower Employment Status Retired Additional Social History Comment Pt and his Maira live in [facility]. They stay on main floor primarily with bathroom and bedroom access. Upon assessment, Maira appears somewhat fragile and she stated she had brain injury that leads to decreased function of her R UE. She primarily uses her L UE to assist pt as needed. Per SW, Maira She mentioned that patient is in wheel-chair, but can ambulate with walker. She also mentioned that they have caregivers coming into the home for a few hours a day. Maira stated that she assists her with showers. They have no immediate family in the area, they have an autistic son that they see on the week-ends. They also have meals on wheels, as well. Asked Maira if patient has had any recent falls at home, and she stated, he has not fallen since April. M2 PT-IP Current Condition Start: 10/26/18 08:18 Freq: NEEDED Status: Active Protocol: Document 10/26/18 09:10 HH (Rec: 10/26/18 11:30 [email or web address]) Physical Therapy Current Condition Current Condition Evaluation Date 10/26/18 Treatment Diagnosis Acute diverticulitis with colovesical fistula, decreased activity tolerance Onset Date 10/24/18 Weight Bearing Status Weight Bearing Status Weight Bear as Tolerated M3 PT-IP Subjective Start: 10/26/18 08:18 Freq: NEEDED Status: Active Protocol: Document 10/26/18 09:10 HH (Rec: 10/26/18 11:30 [email or web address]) Subjective Physical Therapy Visit Type Type Initial Evaluation Visit Start Time 09:10 Visit Stop Time 09:40 Total Visit Minutes 30 Notes Pt's Maira at bedside upon assessment. Per nursing, pt has been using bedpan and urinal for toileting since he stated I cant walk Number of AIRLINE CUSTOMER SERVICE AGENT Visits 0 Physical Therapy Visit Comments Patient Comments Pt agreeble to mobilize with PT Patient Goals To return home with . Therapy Pain Assessment Pain Present Pain Present Denied Pain M4 PT-IP Mobility and Gait Start: 10/26/18 08:18 Freq: NEEDED Status: Active Protocol: Document 10/26/18 09:10 HH (Rec: 10/26/18 11:30 [email or web address]) PT-Bed Mobility Assessment Supine to Sit Supine to Sit Contact Guard Assistance Minimal Assistance Bedrails Scooting Scooting to Edge of Bed Contact Guard Assistance PT-Transfer Assessment Sit to and From Stand Sit to and from Stand Contact Guard Assistance Use of Upper Extremities Equipment Transfer Assistive Device Gait Belt Front Wheeled Walker Orthotic/Prosthetic Devices or Brace: No Transfers Transfer Destination Bed Chair Transfer Technique Stand Step Pivot Transfer Ability Level of Assist Contact Guard Assistance Minimal Assistance Use of Upper Extremities Comments Mobility Comments Pt was in bed upon assessment. He was able to perform supine to sit and sat EOB with CGA/ min A but slowly. He was also able to sit <>stand and transfer back to bedside chair after ambulation with FWW but he does need cues for slow descent and hand placements on armrest for safety. Gait Assessment Gait Gait Assistance Required: Contact Guard Assist Distance (Feet) 70 Able to Maintain Weight Bearing Status Yes During Gait Assistive Devices Assistive Device Gait Belt Front Wheeled Walker Orthotic/Prosthetic Devices or Brace: No Gait Deviations General Gait Pattern Antalgic Decreased Stride Length Decreased Feet Clearance Flexed Trunk Step-to Gait Factors Limiting Gait Function Factors Limiting Gait Function Decreased Activity Tolerance Decreased Strength Limited Range of Motion Pain Poor Balance Poor Safety Awareness Comments Gait Comments Pt was able to amb ~70ft in total with FWW CGA. Used step to gait pattern with a flexed trunk posture. Required cues to facilitate longer step length. Pt did not c/o any discomfort or pain at this point but he did reports of fatigue after ambulation. PT-Balance Assessment Sitting Balance and Reactions Static Sitting Balance Ability Normal Dynamic Sitting Balance Ability Normal Standing Balance and Reactions Static Standing Balance Ability Good Dynamic Standing Balance Ability Good Device Used FWW M5 PT-IP Objective Assessments Start: 10/26/18 08:18 Freq: NEEDED Status: Active Protocol: Document 10/26/18 09:10 (Rec: 10/26/18 11:30 [email or web address]) Orientation Orientation/Cognition Level of Alertness Alert Orientation Name Age Birthday Month Date Year Day of Week Place Situation Language Function Ability No Deficits Noted Safety Awareness Understands Safety Issues Memory Description No Deficits Noted Gross Range of Motion Upper Extremity ROM Assessment Within Functional Limits Lower Extremity ROM Assessment Within Functional Limits Strength Upper Extremity Strength Assessment Within Functional Limits Lower Extremity Strength Assessment Within Functional Limits Coordination Assessment Gross Coordination Gross Coordination WNL Sensation Assessment Sensation Gross Sensation WNL M6 PT-IP Treatment Start: 10/26/18 08:18 Freq: NEEDED Status: Active Protocol: Document 10/26/18 09:10 (Rec: 10/26/18 11:30 [email or web address]) Physical Therapy Treatment Exercises Exercises Gluteal Sets Quad Sets Education Education Provided Safety M7 PT-IP Assessment and Plan Start: 10/26/18 08:18 Freq: NEEDED Status: Active Protocol: Document 10/26/18 09:10 (Rec: 10/26/18 11:30 [email or web address]) PT Summary Assessment and Plan Potential Rehabilitation Potential Excellent Status of Condition at Evaluation Stable Summary Impairments Pain ROM Strength Balance Bed Mobility Transfers Gait Activity Tolerance Assessment Summary Pt is low complexity regarding his overall mobility. Although his PMH and EMR stated his extensive assistance needed for ADLs and IADLs, he appears to require CGA for overall transfers and ambulation with FWW during this eval session. Pt might have self limiting behaviors and encouraged pt and his during this session regarding the importance of exercise and mobility on overall health. Pt currently is somewhat close to his PLOF and has well managed home assistance and DME for him to be d/c once he is medically stable. Home health therapy will also be beneficial to improve pt's functional mobility. Goals Bed Mobility Goal Standby Assistance Contact Guard Assistance Transfer Goal Standby Assistance Contact Guard Assistance Front Wheeled Walker Gait Goal Standby Assistance Contact Guard Assistance Front Wheel Walker Gait Distance 100 Other Goals CG training on transfers, dressing, and ambulation Days to Meet Goals 3 Frequency of Treatment Frequency Of Treatment Once a Day Treatment Plan Physical Therapy Treatment Plan Bed Mobility Training Transfer Training Gait Training Therapeutic Exercise Balance Retraining Discharge Planning Hot or Cold Pack Neuromuscular Re-ed Other Recommendations and Next Treatment assess CG training on Focus transfers, dressing, and ambulation gait training as lisa bed mob and transfer training. Recommendations To Nursing Amount of Assist Needed 1 Person Assist Discharge Recommendations PT Discharge Recommendations Home with Assistance Home Health Other Discharge Recommendations Pt currently is somewhat close to his PLOF and has well managed home assistance and DME for him to be d/c once he is medically stable. Home health therapy will also be beneficial to improve pt's functional mobility.
[2018-10-26] MEDS: CARBIDOPA-LEVODOPA 10/100 TABLET 1 EACH PO ×2 (14:44→21:09)
--- NOTE | 2018-10-26 16:37 | OT.IP.TRT ---
Current Diagnoses Diverticulitis of large intestine without perforation or abscess without bleeding (10/24/18) Occupational Therapy Treatment Note M3 OT- IP Subjective and Pain Start: 10/26/18 16:33 Freq: Status: Active Protocol: Document 10/26/18 16:33 [facility] (Rec: 10/26/18 16:37 [facility] [id number]) OT- Subjective Occupational Therapy Visit Type Type Patient Refusal Notes Pt states too tired and not wanting to get up at this time and would rather do OT eval tomorrow morning.
[2018-10-26] MEDS: DONEPEZIL 5 MG TABLET 15 MG PO (16:40)
[2018-10-26] MEDS: ASPIRIN EC 81 MG TABLET 162 MG PO (16:40)
--- NOTE | 2018-10-26 22:26 | PC.NURSE ---
Pt A&OX3. 96%RA. denied pain. reports burning sensation when urinating. stool in urine. incontinent. [id number]. [facility] New IV site to CHRISTINA. ate some dinner and drank cranberry juice. seems very weak.
[2018-10-27] VITALS (8 sets, daily range): BP systolic 108–159; BP diastolic 55–89; PULSE 68–93; RESP 14–19; TEMP 36.3–37.8; O2SAT 95–97
[2018-10-27] MEDS: PIPERACILLIN-TAZO 3.375 GM/50 ML FROZ.PIGGY IV ×4 (04:34→21:16)
[2018-10-27 06:04] LABS: Add Manual Diff / Slide Review NO; Basophils Absolute Auto 100 /uL (0-100); Basophils Percent Auto 0.6 % (0-2); Eosinophils Absolute Auto 400 /uL (0-450); Eosinophils Percent Auto 2.9 % (2-4); Hematocrit 32.2 % (41-53); Hemoglobin 10.8 g/dL (13.5-17.5); Lymphocytes Absolute Auto 3400 /uL (1100-4500); Lymphocytes Percent Auto 23.8 % (25-40); Mean Corpuscular HGB Conc 33.4 % (30-36); Mean Corpuscular Hemoglobin 31.9 PG (26-34); Mean Corpuscular Volume 95.6 fL (80-100); Monocytes Absolute Auto 1600 /uL (0-900); Monocytes Percent Auto 11.1 % (3-14); Neutrophils Absolute Auto 8800 /uL (1500-7000); Neutrophils Percent Auto 61.6 % (50-75); Platelet Count 256 X10^3/uL (150-400); Red Blood Cell Count 3.37 X10^6/uL (4.5-5.9); Red Cell Distribution Width 13.5 % (11.6-14.8); White Blood Cell Count 14.3 X10^3/uL (4.5-11.0)
[2018-10-27 06:08] LABS: BUN Creatinine Ratio 12.2 (6-22); Blood Urea Nitrogen 11 mg/dL (9-20); Calcium 8.8 mg/dL (8.4-10.2); Carbon Dioxide 24 mmol/L (22-32); Chloride 101 mmol/L (98-107); Estimated Glomerular Filt Rate > 60.0 mL/min (>60); Glucose 98 mg/dL (80-110); HEMOLYSIS < 15 (0-50); Potassium 3.8 mmol/L (3.4-5.1); Sodium 133 mmol/L (137-145)
[2018-10-27] MEDS: FLUoxetine 10 MG CAPSULE PO (09:00)
[2018-10-27] MEDS: ENOXAPARIN 40 MG/0.4 ML SYRINGE SUBCUT (09:00)
[2018-10-27] MEDS: CARBIDOPA-LEVODOPA 10/100 TABLET 1 EACH PO ×3 (09:00→21:16)
--- NOTE | 2018-10-27 10:07 | P.PN_ITS ---
Subjective Date Patient Seen: 10/27/18 Interval history: Patient is a pleasant 83-year-old male here in the hospital with a colovesical fistula. He is now on IV antibiotics. He has had no fever since October 24, 2018. The patient is white count is improved today down from 18 to [id number]. He is tolerating his diet without difficulty. The patient denies any abdominal pain. Exam Vital Signs (past 8 hours): - 10/27/18 05:40 10/27/18 08:00 10/27/18 08:45 Temperature 97.4 F L 97.7 F Pulse Rate 68 68 Respiratory Rate 18 14 Blood Pressure 108/59 L 117/56 L Pulse Oximetry 97 95 95 Oxygen Delivery Method Room Air Oxygen Flow Rate 0 Narrative Exam Narrative: Pleasant male in no obvious distress Lungs: Clear to auscultation Cardiac exam: Regular rate rhythm normal S1-S2 Abdomen: Soft and nontender Extremities: No edema Objective Labs Result Diagrams: 10/27/18 05:20 10/27/18 05:20 Labs: Laboratory Results - last 24 hr 10/27/18 10/27/18 05:20 05:20 WBC 14.3 H RBC 3.37 L Hgb 10.8 L Hct 32.2 L MCV 95.6 MCH 31.9 MCHC 33.4 RDW 13.5 Plt Count 256 Neut % (Auto) 61.6 Lymph % (Auto) 23.8 L [place] % (Auto) 11.1 Eos % (Auto) 2.9 Baso % (Auto) 0.6 Neut # (Auto) 8800 H Lymph # (Auto) 3400 [place] # (Auto) 1600 H Eos # (Auto) 400 Baso # (Auto) 100 Sodium 133 L Potassium 3.8 Chloride 101 Carbon Dioxide 24 BUN 11 Creatinine 0.90 Estimated GFR > 60.0 BUN/Creatinine Ratio 12.2 Glucose 98 Calcium 8.8 Assessment & Plan Assessment & Plan narrative: cute sigmoid diverticulitis with colovesical fistula -clinically improving with IV antibiotic, T-max 100.0? on admission and subsequently has been afebrile, abdominal pain and tenderness resolved, however his WBC has bumped up from day prior which we would like to see trending down -patient had abdominal pain and dysuria for approximately 2 weeks prior to admission treated as an outpatient with Bactrim and subsequently Augmentin for 10 days. -CT scan showed extensive sigmoid diverticulosis with acute diverticulitis with a colovesical fistula. No evidence of abscess. -blood cultures negative and urine cultures growing gram-negative bacilli -continue Zosyn 3.375 g IV q.6 hours, trend WBC, per surgery consult patient will need to complete 2 week antibiotic course IV and oral combined -D/C maintenance IV fluid -tolerating heart healthy diet -outpatient surgical follow-up for colonoscopy and likely subsequent sigmoid resection and takedown of colovesicular fistula 2. Colovesical fistula, present on admission -patient was experiencing dysuria and voiding brown turbid urine positive for blood, leukocyte esterase, white cells and many bacteria. -continue management as above -thank you to Dr. Gonzalez for consulting and recommendations: Colovesicular fistula, does not expect spontaneous closure, recommends outpatient colonoscopy, followed by colon resection and takedown of colovesicular fistula following patient's stabilization and treatment of underlying infection 3. Acute/subacute cystitis, secondary to colovesical fistula -urine culture positive for gram-negative bacilli, final pending -treat with Zosyn as above 5. Gastroesophageal reflux disorder, stable. -continue ranitidine per home routine 6. Benign prostatic hypertrophy, stable. -patient with acute cystitis with pain on urination, but no reduction in urinary stream. -patient previously been prescribed tamsulosin, on med list, but states he has not been taking the medication recently. 7. Dementia, mild, stable. -patient appears alert with good recall -will continue home medication of donepezil 15 mg nightly. -patient routinely takes fluoxetine 5 mg daily, fluoxetine 5 mg is not available from the pharmacy, home medication is not available, patient agrees to dose increased to 10 mg. 8. Hyponatremia- will follow, discontinue IVF now that patient is eating. Disposition: Continue IV antibiotic management. Anticipate he will need another couple days in the hospital then discharge home on oral antibiotics with outpatient surgical follow-up. Quality Quality VTE Deep Vein Thrombosis/Pulmonary Embolism Present on Admission: No
--- NOTE | 2018-10-27 10:48 | OT.IP.EVAL ---
Current Diagnoses Diverticulitis of large intestine without perforation or abscess without bleeding (10/24/18) Past Medical History (Last Updated 10/24/18 @ 21:04 by MARLYN Fisher) Anemia (Acute) Cholelithiasis (Acute) Colovesical fistula (Acute) Compression fracture of L1 vertebra (Acute) Gastroesophageal reflux (Acute) Pubic ramus fracture (Acute) Fall (Acute) Hypertension (Acute) Right femoral fracture (Acute) Surgical History (Last Updated 10/24/18 @ 21:04 by MARLYN Fisher) History of left hip replacement (Acute) Occupational Therapy Inpatient Evaluation/Re-Eval M1 PT/OT-IP Prior Functional Status Start: 10/26/18 08:18 Freq: NEEDED Status: Active Protocol: Document 10/27/18 10:29 CGR (Rec: 10/27/18 10:48 CGR [email or web address]) Medical Review Prior Functional Status Medical History Reviewed Yes Communication Able to make needs known. Mobility and Gait Per Pt and his , Pt is mostly w/c bound at home but able to amb as lisa for ~100ft before rest with FWW. He doesnt drive Activities of Daily Living and IADL's Pt has multiple CGs to come in during the week. One CG comes in 6 days/ week for 2 hours to assist pt and his for IADLS. The other one comes in 3 times/ week for an hour to mobilize pt with some HEP and ambulation with FWW. Pt's stated pt does need some assistance for supine to sit from bed, LEs dressing and showering. They are also using Meals on Wheels. Social History Household Members spouse Living Arrangements House Number of Floors (Floors) 3 or More Floors Number of Stairs To Enter/Railing? 3 [place] with L railing but has ramp at entrance that pt uses Home Environment High Toilet Walk in Shower Ramp Home Equipment Front Wheel Walker Four Wheel Walker Straight Cane Manual Wheelchair Raised Toilet Seat w/Armrests Shower Seat with Backrest Hand Held Shower Long Handled Shoe Horn Building Principal Sock Aid Bed Rails Grab Bars Near Toilet Grab Bars In Shower Employment Status Retired Additional Social History Comment Pt and his Maira live in [facility]. They stay on main floor primarily with bathroom and bedroom access. Upon assessment, Maira appears somewhat fragile and she stated she had brain injury that leads to decreased function of her R UE. She primarily uses her L UE to assist pt as needed. Per SW, Maira She mentioned that patient is in wheel-chair, but can ambulate with walker. She also mentioned that they have caregivers coming into the home for a few hours a day. Maira stated that she assists her with showers. They have no immediate family in the area, they have an autistic son that lives independently but comes to stay with them on the weekends . He is not able to assist. They also have meals on wheels, as well. Asked Maira if patient has had any recent falls at home, and she stated, he has not fallen since April. M2 OT-IP Current Condition Start: 10/26/18 16:33 Freq: Status: Active Protocol: Document 10/27/18 10:29 CGR (Rec: 10/27/18 10:48 CGR [email or web address]) Occupational Therapy Current Condition Current Condition Evaluation Date 10/27/18 Treatment Diagnosis acute diverticulitis Diagnosis Onset Date 10/24/18 M3 OT- IP Subjective and Pain Start: 10/26/18 16:33 Freq: Status: Active Protocol: Document 10/27/18 10:29 CGR (Rec: 10/27/18 10:48 CGR [email or web address]) OT- Subjective Occupational Therapy Visit Type Type Initial Evaluation Visit Start Time 09:05 Visit Stop Time 09:50 Total Visit Minutes 45 Notes Pt agreeable to therapy. is sleeping on couch and does not get up during session. Occupational Therapy Visit Comments Patient Comments I feel weaker than usual, probably from lying in that bed. OT Pain Assessment Pain When Pain Assessed urination Pain Present Pain Present Pain Reported Location Penis Intensity 8 Scale Used Numeric (1 - 10) Description Acute M4 OT- IP ADL's Start: 10/26/18 16:33 Freq: Status: Active Protocol: Document 10/27/18 10:29 CGR (Rec: 10/27/18 10:48 CGR [email or web address]) OT [id number] General Evaluation Self-Feeding Ability Independent Comments OT Self-Feeding Comments Pt finishing breakfast when OT entered. OT ADL-Grooming General Evaluation Grooming Ability Standby Assistance Areas Needing Assistance Retrieving/Set-up of Grooming Items Combing/Brushing Hair Face Washing Comments OT Grooming Comments Stood at sink for grooming OT ADL-Oral Care General Eval Oral Care Ability Standby Assistance Areas of Assistance Brushing Teeth Comments Oral Care Comments Stood at sink for brushing teeth. OT ADL-Dressing General Eval Lower Body Dressing Ability Moderate Assistance Areas Needing Assistance Underpants/Brief Comments OT Dressing Comments for threading legs into brief. Pt states he uses a family living educator to assist him at home. OT ADL-Toileting General Evaluation Toileting Ability Standby Assistance Areas Needing Assistance Perform Perineal Hygiene Comments OT Toileting Comments Pt needed extra time for back peircare. Pt had BM seated on BSC. Nursing notified of soiled BSC and location in the bathroom. OT ADL-Bathing Comments OT Bathing Comments Not performed on this date. M5 OT- IP IADL's Start: 10/26/18 16:33 Freq: Status: Active Protocol: Document 10/27/18 10:29 CGR (Rec: 10/27/18 10:48 CGR [email or web address]) OT-Instrumental Activities of Daily Living Deficits IADL Deficits Identified Deficits Home Safety Awareness Awareness of Need for Assistance at Home Good Awareness Ability to Problem Solve Emergency Able to Problem Solve Situations Home Safety Comments Pt appears clear minded and follows commands as well as waits for proper set up of items for transfers and ADLs. Medication Management Medication Management No Deficits Identified Money Management Money Management Comments Unsure of who manages money. There is some concern given report from nursing that pt's walks around the room inappropriately clothed in just a brief. Pt reports that they have 4 children, unsure if one of them assists with finances. Meal Preparation Meal Preparation No Deficits Identified Meal Preparation Comments Pt and are already set up for meals on wheels Railroad Car Painter Railroad Car Painter Caregiver Provides Assist Driving Driving Concerns Identified Regarding Safety Driving Comments Pt states he does not drive but pt's is likley also unsafe to drive. Unsure of pt' s transportation options at this time. M6 OT- IP Functional Cognition Start: 10/26/18 16:33 Freq: Status: Active Protocol: Document 10/27/18 10:29 CGR (Rec: 10/27/18 10:48 CGR [email or web address]) Cognitive Factors Limiting Selfcare Function Cognitive Ability Level of Alertness Alert Patient Orientation Name Age Birthday Month Date Year Day of Week Place Situation Attention Span Ability Capable of Focused Attention Capable of Sustained Attention Ability to Follow Commands Able to Follow One Step Commands Memory Description No Deficits Noted Safety Awareness No Deficits Noted Problem Solving Ability No deficits Noted Executive Function Ability No Deficits Noted Abstract Thinking Ability No Deficits Noted Cognitive Comments Cognitive Assessment Comments Pt appears WFL for cognition in this session, however, nursing indicated that pt has been inconsistent with answers . Pt may benefit from a formal cog test. Also, AM treatment vs PM treatment may provide different cognitive levels. OT- Vision and Hearing OT- Hearing Assessment OT- Hearing Assessment WFL OT- Vision Assessment Visual Acuity Glasses All The Time Visual Attentiveness WFL Occular Pursuits WFL Visual Convergence WFL Visual Mullins WFL Vision Assessment Comments Pt has delayed tracking but WFL for his age. M7 OT- IP Mobility and Balance Start: 10/26/18 16:33 Freq: Status: Active Protocol: Document 10/27/18 10:29 CGR (Rec: 10/27/18 10:48 CGR [email or web address]) OT- Bed Mobility Assessment Supine to Sit Supine to Sit Assist Bedrails Scooting Scooting to Edge of Bed Independent OT-Transfer Assessment Sit to and From Stand Sit to and from Stand Contact Guard Assistance Transfers Transfer Ability Contact Guard Assistance Technique Transfer Destination Bed Bedside Commode Chair Devices Transfer Assistive Devices Gait Belt Front Wheeled Walker Comments Mobility Comments Pt performed all transfers without LOB and states that he typically leaves the gait belt on all day. OT- Gait Assessment Gait Gait Assistance Required: Contact Guard Assist Comments Gait Ability Comments minimal gait performed, more transfers but pt is able to tolerate standing and minimal gait with 2ww. OT- Balance Assessment Sitting Balance and Reactions Static Sitting Balance Ability Normal Dynamic Sitting Balance Ability Normal Standing Balance and Reactions Static Standing Balance Ability Good Dynamic Standing Balance Ability Fair M8 OT- IP Objective Assessments Start: 10/26/18 16:33 Freq: Status: Active Protocol: Document 10/27/18 10:29 CGR (Rec: 10/27/18 10:48 CGR [email or web address]) OT Gross Range of Motion Upper Extremity Range of Motion Assessment Within Functional Limits OT Strength Upper Extremity Strength Assessment Within Functional Limits Comments Strength Comments Pt is grossly 4/5 throughout OT- Coordination Assessment Upper Extremity Finger to Nose Test Within Functional Limits Finger Tapping Test Within Functional Limits OT-Muscle Tone Assessment Muscle Tone WNL Yes OT Sensation Assessment Comments Summary Comments Pt reports typical sensation Edema Edema Absent M9 OT- IP Assessment and Plan Start: 10/26/18 16:33 Freq: Status: Active Protocol: Document 10/27/18 10:29 CGR (Rec: 10/27/18 10:48 CGR [email or web address]) OT Summary Assessment and Plan Potential Rehabilitation Potential Good Analytic Complexity at Evaluation Moderate Summary OT Impairments Pain Strength Balance Functional Cognition Functional Mobility Grooming Dressing Toileting Bathing Toilet Transfers Shower Transfers Assessment Summary Pt presents with deficits that are impacting his ability to care for himself independently . Pt will benefit from OT services to address ADL transfers, home safety, UE strength for tranfers, and family training. Goals Grooming Goal Independent Dressing Goal Independent Building Principal Sock Aid Toileting Goal Independent Bathing Goal Minimal Assistance Toilet Transfer Goal Independent Raised Toilet Seat Grab Bars Shower Transfer Goal Independent Walk-in Shower Days to Meet Goals 5 Frequency of Treatment Frequency Of Treatment Once a Day Treatment Plan OT Treatment Plan ADL Training Functional Cognition Training Functional Mobility IADL Training Therapeutic Exercises Patient/Family Education Discharge Planning Other Treatment Recommendations and Next Shower and formal cog Treatment Focus assessment, compare cog in AM vs PM. Discharge Recommendations OT Discharge Recommendations Home with Assistance Home Equipment Needs None
--- NOTE | 2018-10-27 15:27 | PT.IPTN ---
Current Diagnoses Diverticulitis of large intestine without perforation or abscess without bleeding (10/24/18) Physical Therapy Treatment Note M2 PT-IP Current Condition Start: 10/26/18 08:18 Freq: NEEDED Status: Active Protocol: Document 10/26/18 09:10 HH (Rec: 10/26/18 11:30 HH [id number]) Physical Therapy Current Condition Current Condition Evaluation Date 10/26/18 Treatment Diagnosis Acute diverticulitis with colovesical fistula, decreased activity tolerance Onset Date 10/24/18 Weight Bearing Status Weight Bearing Status Weight Bear as Tolerated M3 PT-IP Subjective Start: 10/26/18 08:18 Freq: NEEDED Status: Active Protocol: Document 10/27/18 15:27 AB (Rec: 10/27/18 16:03 AB [id number]) Subjective Physical Therapy Visit Type Type Treatment Note Visit Start Time 15:27 Visit Stop Time 15:50 Total Visit Minutes 23 Number of RENEWABLE ENERGY PROJECT MANAGER Visits 0 Physical Therapy Visit Comments Patient Comments pt stated that he is feeling better M4 PT-IP Mobility and Gait Start: 10/26/18 08:18 Freq: NEEDED Status: Active Protocol: Document 10/27/18 15:27 AB (Rec: 10/27/18 16:03 AB [id number]) PT-Bed Mobility Assessment Supine to Sit Supine to Sit Standby Assistance Bedrails Sit to Supine Sit to Supine Moderate Assistance 1 Person Assistance Bedrails PT-Transfer Assessment Sit to and From Stand Sit to and from Stand Contact Guard Assistance Equipment Transfer Assistive Device Gait Belt Front Wheeled Walker Orthotic/Prosthetic Devices or Brace: No Gait Assessment Gait Gait Assistance Required: Contact Guard Assist Distance (Feet) 50 Able to Maintain Weight Bearing Status Yes During Gait Assistive Devices Assistive Device Gait Belt Front Wheeled Walker Orthotic/Prosthetic Devices or Brace: No Gait Deviations General Gait Pattern Antalgic Decreased Stride Length Decreased Feet Clearance Step-to Gait Factors Limiting Gait Function Factors Limiting Gait Function Decreased Activity Tolerance Decreased Strength Limited Range of Motion Pain Poor Balance Poor Safety Awareness Comments Gait Comments pt presents with antalgic gait with difficulty with RLE propulsion and decreas R knee flexion. M5 PT-IP Objective Assessments Start: 10/26/18 08:18 Freq: NEEDED Status: Active Protocol: Document 10/26/18 09:10 HH (Rec: 10/26/18 11:30 HH [id number]) Orientation Orientation/Cognition Level of Alertness Alert Orientation Name Age Birthday Month Date Year Day of Week Place Situation Language Function Ability No Deficits Noted Safety Awareness Understands Safety Issues Memory Description No Deficits Noted Gross Range of Motion Upper Extremity ROM Assessment Within Functional Limits Lower Extremity ROM Assessment Within Functional Limits Strength Upper Extremity Strength Assessment Within Functional Limits Lower Extremity Strength Assessment Within Functional Limits Coordination Assessment Gross Coordination Gross Coordination WNL Sensation Assessment Sensation Gross Sensation WNL M6 PT-IP Treatment Start: 10/26/18 08:18 Freq: NEEDED Status: Active Protocol: Document 10/27/18 15:27 AB (Rec: 10/27/18 16:03 AB [id number]) Physical Therapy Treatment Education Education Provided Safety M7 PT-IP Assessment and Plan Start: 10/26/18 08:18 Freq: NEEDED Status: Active Protocol: Document 10/27/18 15:27 AB (Rec: 10/27/18 16:03 AB [id number]) PT Summary Assessment and Plan Potential Rehabilitation Potential Good Summary Impairments Pain ROM Strength Balance Coordination Sensation Tone Cognition Bed Mobility Transfers Gait Activity Tolerance Progress Towards Goals Progressing Toward Goals Assessment Summary pt requiring CGA with ambulation. requires assist to move LE to get into the bed. pt has caregivers that comes in to assist him and his spouse at home. pt also has a w/c that he uses at home. pt may go home when medically stable with assist. Goals Bed Mobility Goal Standby Assistance Transfer Goal Standby Assistance Front Wheeled Walker Gait Goal Standby Assistance Front Wheel Walker Gait Distance 100 Days to Meet Goals 5 Frequency of Treatment Frequency Of Treatment Once a Day Treatment Plan Physical Therapy Treatment Plan Bed Mobility Training Transfer Training Gait Training Therapeutic Exercise Balance Retraining Discharge Planning Hot or Cold Pack Neuromuscular Re-ed Other Recommendations and Next Treatment caregiver training when Focus appropriate, ambulation, bed mobility training, sit <>stand transfers Recommendations To Nursing Amount of Assist Needed 1 Person Assist Discharge Recommendations PT Discharge Recommendations Home with Assistance Home Health
[2018-10-27] MEDS: ASPIRIN EC 81 MG TABLET 162 MG PO (16:20)
[2018-10-27] MEDS: DONEPEZIL 5 MG TABLET 15 MG PO (16:21)
[2018-10-28] VITALS (9 sets, daily range): BP systolic 117–144; BP diastolic 60–75; PULSE 63–96; RESP 16–18; TEMP 36.3–37.1; O2SAT 95–99
[2018-10-28] MEDS: PIPERACILLIN-TAZO 3.375 GM/50 ML FROZ.PIGGY IV ×2 (03:58→09:18)
--- NOTE | 2018-10-28 06:30 | PC.NURSE ---
Shift note: Patient continues to have urinary incontinence with fecal matter, scrotum red and irritated. Pt refuses to wear blue booties or float heels as well. Pt's , who is rooming in, was seen in the room walking around without pants on, also makes multiple requests of RHEOSTAT ASSEMBLER and staff during care of the patient.
[2018-10-28 07:38] LABS: Add Manual Diff / Slide Review NO; Basophils Absolute Auto 100 /uL (0-100); Basophils Percent Auto 0.6 % (0-2); Eosinophils Absolute Auto 500 /uL (0-450); Eosinophils Percent Auto 3.6 % (2-4); Hematocrit 31.1 % (41-53); Hemoglobin 10.6 g/dL (13.5-17.5); Lymphocytes Absolute Auto 3100 /uL (1100-4500); Lymphocytes Percent Auto 23.1 % (25-40); Mean Corpuscular HGB Conc 34.1 % (30-36); Mean Corpuscular Hemoglobin 32.4 PG (26-34); Mean Corpuscular Volume 94.9 fL (80-100); Monocytes Absolute Auto 1700 /uL (0-900); Neutrophils Absolute Auto 7900 /uL (1500-7000); Neutrophils Percent Auto 59.7 % (50-75); Platelet Count 260 X10^3/uL (150-400); Red Blood Cell Count 3.28 X10^6/uL (4.5-5.9); Red Cell Distribution Width 13.5 % (11.6-14.8); White Blood Cell Count 13.2 X10^3/uL (4.5-11.0)
[2018-10-28 07:44] LABS: BUN Creatinine Ratio 12.5 (6-22); Blood Urea Nitrogen 10 mg/dL (9-20); Calcium 8.9 mg/dL (8.4-10.2); Carbon Dioxide 27 mmol/L (22-32); Chloride 100 mmol/L (98-107); Estimated Glomerular Filt Rate > 60.0 mL/min (>60); Glucose 90 mg/dL (80-110); HEMOLYSIS < 15 (0-50); Potassium 3.7 mmol/L (3.4-5.1); Sodium 133 mmol/L (137-145)
--- NOTE | 2018-10-28 08:52 | P.PN_ITS ---
Subjective Date Patient Seen: 10/28/18 Interval history: 83-year-old male admitted to the hospital with a colovesical fistula. He reports no further abdominal pain. He does report some dysuria although this is improved since admission. He is tolerating his meals without difficulty. He has had no further fever. His only question or concern is when he will be able to be discharged home. Exam Vital Signs (past 8 hours): - 10/28/18 05:00 10/28/18 08:00 Temperature 97.4 F L 97.7 F Pulse Rate 63 70 Respiratory Rate 16 16 Blood Pressure 117/60 141/71 H Pulse Oximetry 97 96 Oxygen Delivery Method Room Air Oxygen Flow Rate 0 Narrative Exam Narrative: Pleasant elderly male in no acute distress Lungs: Clear to auscultation Cardiac exam: Regular rate and rhythm normal S1-S2 Abdomen: Soft nontender nondistended without hepatosplenomegaly Extremities: No edema Objective Labs Result Diagrams: 10/28/18 07:05 10/28/18 07:05 Labs: Laboratory Results - last 24 hr 10/28/18 10/28/18 07:05 07:05 WBC 13.2 H RBC 3.28 L Hgb 10.6 L Hct 31.1 L MCV 94.9 MCH 32.4 MCHC 34.1 RDW 13.5 Plt Count 260 Neut % (Auto) 59.7 Lymph % (Auto) 23.1 L [place]isco[place] % (Auto) 13.0 Eos % (Auto) 3.6 Baso % (Auto) 0.6 Neut # (Auto) 7900 H Lymph # (Auto) 3100 [place] # (Auto) 1700 H Eos # (Auto) 500 H Baso # (Auto) 100 Sodium 133 L Potassium 3.7 Chloride 100 Carbon Dioxide 27 BUN 10 Creatinine 0.80 Estimated GFR > 60.0 BUN/Creatinine Ratio 12.5 Glucose 90 Calcium 8.9 Assessment & Plan Assessment & Plan narrative: [address] [address] Progress Note Patient: Greg Arriola EMR#: [id number] : 6Acct:[id number] Age/Sex: 83 / M Date of Service: 10/24/18 Provider: Susana Jimenez MD Subjective Date Patient Seen: 10/27/18 Interval history: Patient is a pleasant 83-year-old male here in the hospital with a colovesical fistula. He is now on IV antibiotics. He has had no fever since October 24, 2018. The patient is white count is improved today down [place] 18 to [id number]. He is tolerating his diet without difficulty. The patient denies any abdominal pain. Exam Vital Signs (past 8 hours): - 10/27/18 05:40 10/27/18 08:00 10/27/18 08:45 Temperature 97.4 F L 97.7 F Pulse Rate 68 68 Respiratory Rate 18 14 Blood Pressure 108/59 L 117/56 L Pulse Oximetry 97 95 95 Oxygen Delivery Method Room Air Oxygen Flow Rate 0 Narrative Exam Narrative: Pleasant male in no obvious distress Lungs: Clear to auscultation Cardiac exam: Regular rate rhythm normal S1-S2 Abdomen: Soft and nontender Extremities: No edema Objective Labs Result Diagrams: 10/27/18 05:20 document embedded image 10/27/18 05:20 document embedded image Labs: Laboratory Results - last 24 hr 10/27/18 10/27/18 05:20 05:20 WBC 14.3 H RBC 3.37 L Hgb 10.8 L Hct 32.2 L MCV 95.6 MCH 31.9 MCHC 33.4 RDW 13.5 Plt Count 256 Neut % (Auto) 61.6 Lymph % (Auto) 23.8 L Briscoe % (Auto) 11.1 Eos % (Auto) 2.9 Baso % (Auto) 0.6 Neut # (Auto) 8800 H Lymph # (Auto) 3400 [place] # (Auto) 1600 H Eos # (Auto) 400 Baso # (Auto) 100 Sodium 133 L Potassium 3.8 Chloride 101 Carbon Dioxide 24 BUN 11 Creatinine 0.90 Estimated GFR > 60.0 BUN/Creatinine Ratio 12.2 Glucose 98 Calcium 8.8 Assessment & Plan Assessment & Plan narrative: cute sigmoid diverticulitis with colovesical fistula -clinically improving with IV antibiotic, T-max 100.0? on admission and subs equently has been afebrile, abdominal pain and tenderness resolved, however his WBC has bumped up from day prior which we would like to see trending down -patient had abdominal pain and dysuria for approximately 2 weeks prior to admission treated as an outpatient with Bactrim and subsequently Augmentin for 10 days. -CT scan showed extensive sigmoid diverticulosis with acute diverticulitis with a colovesical fistula. No evidence of abscess. -blood cultures negative and urine cultures growing gram-negative bacilli -continue Zosyn 3.375 g IV q.6 hours, trend WBC, per surgery consult patient yanet l need to complete 2 week antibiotic course IV and oral combined -D/C maintenance IV fluid -tolerating heart healthy diet -outpatient surgical follow-up for colonoscopy and likely subsequent sigmoid resection and takedown of colovesicular fistula 2. Colovesical fistula, present on admission -patient was experiencing dysuria and voiding brown turbid urine positive for blood, leukocyte esterase, white cells and many bacteria. -continue management as above -thank you to Dr. Gonzalez for consulting and recommendations: Colovesicular fistula, does not expect spontaneous closure, recommends o utpatient colonoscopy, followed by colon resection and takedown of colovesicular fistula following patient's stabilization and treatment of underlying infection 3. Acute/subacute cystitis, secondary to colovesical fistula -urine culture positive for gram-negative bacilli, final pending -treat with Zosyn as above 5. Gastroesophageal reflux disorder, stable. -continue ranitidine per home routine 6. Benign prostatic hypertrophy, stable. -patient with acute cystitis with pain on urination, but no reduction in urinary stream. -patient previously been prescribed tamsulosin, on med list, but states he has not been taking the medication recently. 7. Dementia, mild, stable. -patient appears alert with good recall -will continue home medication of donepezil 15 mg nightly. -patient routinely takes fluoxetine 5 mg daily, fluoxetine 5 mg is not available from the pharmacy, home medication is not available, patient agrees to dose increased to 10 mg. 8. Hyponatremia- will follow, discontinue IVF now that patient is eating. Disposition: Continue IV antibiotic management. Anticipate he will need another couple days in the hospital then discharge home on oral antibiotics with outpatient surgical follow-up. Patient to compared continue on IV antibiotics until white count has normalized. His white count has improved from [id number] 1000/[id number]. Anticipate 24-48 hours of continued IV antibiotic and then discharged home. Quality VTE Deep Vein Thrombosis/Pulmonary Embolism Present on Admission: No
[2018-10-28] MEDS: CARBIDOPA-LEVODOPA 10/100 TABLET 1 EACH PO ×3 (09:12→21:13)
[2018-10-28] MEDS: ENOXAPARIN 40 MG/0.4 ML SYRINGE SUBCUT (09:13)
[2018-10-28] MEDS: FLUoxetine 10 MG CAPSULE PO (09:15)
[2018-10-28] MEDS: SODIUM CHLORIDE 0.9% FLUSH 10 ML IV (09:16)
--- NOTE | 2018-10-28 10:50 | PC.NURSE ---
Day shift: Pt's IV site infiltrated after the IV antibiotics. Mild swelling with some pain present. IV taken out and Pt tolerated well. Wrapped arm in warm blanket. Told Dr Jimenez and new IV site to be placed today as Pt still on IV antibiotics. Pt reports he is hard stick. SUGEY Marquez will attempt and Pt may need midline for the rest of IV course. Dr Jimenez aware of this as well. Will continue to monitor Pt.
--- NOTE | 2018-10-28 11:57 | CM.DPC ---
DCP: continued: Case discussed in Team Rounds, EMR reviewed and including pt's admssions to in October and November of 2017 and May 2018. Met then in followup with pt and his Maira. Introduced self and role. Pt and his Maira live on [facility]. Maira's cell: [phone]. Both were very much a part of the conversation and gave very specific details about their family and living situation. Maira has been rooming in, it was easier this time then going to a hotel but I'm not sleeping too well here. She appeared exhausted. The couple have been over 40 years. He has a son Kirk in [place]. She has a daughter Teri in [place]. They have a disable son Fabian who stays with them on weekends. He goes to work for one hour every day. Maira or a caregiver take him to work and a community member is currently checking in on him. Pt confirms that at home he is primarily w/c bound. He has a paid caregiver Yasmin Hale who comes in daily for a couple of hours to assist in whatever is needed. Estella, a paid caregiver, comes in 1xweek to give Maira some respite time. She then does errands etc. Yasmin is able to provide more hours if need be, per pt. Caregiver/unpaid, Char Nieto helps with the family's dog care, helps pt with his walking and helps their son Suhail get groceries etc when he is not at their home. Other [facility] community members are around to offer help. Pt knows that more is likely needed as Maira is clearly exhausted but Maira says she is reluctant. She states There are always so many people in and out of the house all day long. Sometimes it's just too much. She appears exhausted and overwhelmed. She has recently started to use a cane at her 's suggestion but laughs and says, I find that I carry it more than use it, it's not part of my routine yet. Pt does confirm that they have the funds for increased care in the home and that he can override Maira's decision if need be as he is aware that she needs more support. At this point she is still helping him in bathroom, with transfers and overall oversight. She confirms that she was doing all of his care a year ago but since that time, the past IH admissions which all resulted in Medicare rehab/recovery stays at [facility], along with his followups with the [facility], they have been adding caregiver support. OT and PT have worked with pt and deemed him stable for home situation. HH has been out several times and an updated order and Face/Face are completed now by Dr. Jimenez with referral to [facility] started: RN/OT/PT/ELECTRICAL PRODUCTS SALES ENGINEER/DIRECTOR OF FLIGHT OPERATIONS. Pt is expected to have a colonoscopy with likely sigmoid resection and takedown of colovesicular fistula. He will likely need snf rehab again after this to assist in his recovery process. This is discussed with both today and they appeared surprised. Encouraged them to think about how this plan will work for them. Pt at this time is firm in his desire for home with HH etc. Both are aware that this will be in the next couple of days. Dr. Gonzalez is expected to see pt tomorrow. Pt at this time continues on IV antibiotics. Pt does say he has access to the phone numbers of all the family members and both confirm that Maira is his POA and he thinks both Kirk and Teri as on is Maira is unble to serve in that capacity. Maira confirms that the POA paperwork is with their field naturalist, a Mr Moe, in [facility]. Have updated Dr. Jimenez re above updated information and will also update the RN coordinatoraudi Ibarra in followup to the discussion of case in Team Rounds. P: home when stable with driving and [facility] followup. DCPlan Team will follow up on this tomorrow and check with [facility] to make sure they are aware. A vm is left for [facility] intake and refferal infor including orders and F/F are faxed to them.
--- NOTE | 2018-10-28 14:22 | PC.NURSE ---
Day shift: After failed attempts to start PIV Dr Jimenez was informed. Pt changed to oral antibiotic. WBC will be checked in AM and if WBC increases a PICC or MIdline will be ordered and placed. Pt is aware of this new plan.
[2018-10-28] MEDS: levoFLOXacin 500 MG TABLET PO (15:05)
--- NOTE | 2018-10-28 15:33 | PT.IPTN ---
Current Diagnoses Diverticulitis of large intestine without perforation or abscess without bleeding (10/24/18) Physical Therapy Treatment Note M2 PT-IP Current Condition Start: 10/26/18 08:18 Freq: NEEDED Status: Active Protocol: Document 10/26/18 09:10 HH (Rec: 10/26/18 11:30 HH [id number]) Physical Therapy Current Condition Current Condition Evaluation Date 10/26/18 Treatment Diagnosis Acute diverticulitis with colovesical fistula, decreased activity tolerance Onset Date 10/24/18 Weight Bearing Status Weight Bearing Status Weight Bear as Tolerated M3 PT-IP Subjective Start: 10/26/18 08:18 Freq: NEEDED Status: Active Protocol: Document 10/28/18 15:32 RCC (Rec: 10/28/18 15:33 RCC [id number]) Subjective Physical Therapy Visit Type Type Patient Refusal Notes pt refused noting he is tired. He states he will participate in PT tomorrow if it is in the a.m. or before 13:00 hrs. Goals Bed Mobility Goal Standby Assistance Transfer Goal Standby Assistance Front Wheeled Walker Gait Goal Standby Assistance Front Wheel Walker Gait Distance 100 Days to Meet Goals 5 Frequency of Treatment Frequency Of Treatment Once a Day Treatment Plan Physical Therapy Treatment Plan Bed Mobility Training Transfer Training Gait Training Therapeutic Exercise Balance Retraining Discharge Planning Hot or Cold Pack Neuromuscular Re-ed Other Recommendations and Next Treatment caregiver training when Focus appropriate, ambulation, bed mobility training, sit <>stand transfers Recommendations To Nursing Amount of Assist Needed 1 Person Assist Discharge Recommendations PT Discharge Recommendations Home with Assistance Home Health
[2018-10-28] MEDS: DONEPEZIL 5 MG TABLET 15 MG PO (17:27)
[2018-10-28] MEDS: ASPIRIN EC 81 MG TABLET 162 MG PO (17:27)
--- NOTE | 2018-10-28 18:16 | PC.NURSE ---
Sulema shift note: Awake, calm, cooperative and pleasant. Call appropriately for staff assistance. Changing brief due to incontinence of both urine and stool readily as needed. [place] to scrotal area, much improved from previous sulema. Using barrier protective ointment with brief change. Shifting positions in bed, heels floated and BLE elevated on pillow. Body supported with pillows. Tolerating heart healthy diet, Maira at bedside. Call light within reach.
[2018-10-29] VITALS (9 sets, daily range): BP systolic 116–155; BP diastolic 59–72; PULSE 71–100; RESP 16–18; TEMP 36.2–37.1; O2SAT 95–98
[2018-10-29 05:35] LABS: Add Manual Diff / Slide Review NO; Basophils Absolute Auto 100 /uL (0-100); Basophils Percent Auto 0.6 % (0-2); Eosinophils Absolute Auto 400 /uL (0-450); Eosinophils Percent Auto 3.2 % (2-4); Hemoglobin 10.8 g/dL (13.5-17.5); Lymphocytes Absolute Auto 3000 /uL (1100-4500); Lymphocytes Percent Auto 22.4 % (25-40); Mean Corpuscular HGB Conc 32.8 % (30-36); Mean Corpuscular Hemoglobin 31.5 PG (26-34); Monocytes Absolute Auto 1800 /uL (0-900); Monocytes Percent Auto 13.7 % (3-14); Neutrophils Absolute Auto 8000 /uL (1500-7000); Neutrophils Percent Auto 60.1 % (50-75); Platelet Count 270 X10^3/uL (150-400); Red Blood Cell Count 3.44 X10^6/uL (4.5-5.9); Red Cell Distribution Width 13.7 % (11.6-14.8); White Blood Cell Count 13.4 X10^3/uL (4.5-11.0)
[2018-10-29 05:48] LABS: BUN Creatinine Ratio 16.3 (6-22); Blood Urea Nitrogen 13 mg/dL (9-20); Calcium 9.1 mg/dL (8.4-10.2); Carbon Dioxide 25 mmol/L (22-32); Chloride 102 mmol/L (98-107); Estimated Glomerular Filt Rate > 60.0 mL/min (>60); Glucose 97 mg/dL (80-110); HEMOLYSIS < 15 (0-50); Potassium 3.7 mmol/L (3.4-5.1); Sodium 136 mmol/L (137-145)
--- NOTE | 2018-10-29 08:00 | PM.PN.1 ---
Subjective Date Patient Seen: 10/29/18 Interval history: Greg Arriola is an 81-year-old male with a past medical history significant for untreated hypertension, anemia of chronic disease, GERD, BPH and left hip replacement with generalized weakness and physical deconditioning presented with complaints of worsening left lower quadrant abdominal pain. The patient is resting in bed comfortably. He continues to have mild left lower quadrant abdominal discomfort with palpation. He has tolerated advancement of diet. He has generalized weakness and physical deconditioning that is chronic. He has no other complaints and denies headache, shortness of breath, chest pain, nausea, vomiting, fever, chills, dysuria, diarrhea or constipation. He is voiding and eliminating without difficulty. He is up minimally with assistance and PT/OT. Exam Vital Signs (past 8 hours): - 10/29/18 00:45 10/29/18 04:22 Temperature 98.3 F Pulse Rate 71 Respiratory Rate 16 Blood Pressure 134/64 Pulse Oximetry 96 95 Oxygen Delivery Method Room Air Oxygen Flow Rate 0 Narrative Exam Narrative: General: Elderly male is sitting in bed and in acute distress, well-developed, well-nourished, appropriately interactive HEENT: Normocephalic, atraumatic. External ears without defect. Pupils equal, round, and reactive to light. Anicteric sclerae, moist conjunctivae, and no lid lag. Oropharynx free of erythema and cobble stoning with moist mucosa. Neck: Supple with full range of motion. No lymphadenopathy or thyromegaly. Cardiovascular: Regular rate and rhythm without murmurs, rubs, or gallops appreciated. Pulmonary: Clear to auscultation bilaterally without crackles, wheezes, or rhonchi. Normal respiratory effort with no use of accessory muscles. Abdomen: Soft, bowel sounds present, mild tenderness to palpation in left lower quadrant, otherwise nontender, and nondistended. No hepatosplenomegaly or masses appreciated. Extremities: No clubbing, cyanosis, or edema. Skin: Normal temperature, turgor, and texture; no rash, ulcers, or subcutaneous nodules appreciated. Neurological: Cranial nerves grossly intact. Psychiatric: Normal mood and affect. Appears to be alert and oriented to person, place, and time. Objective Labs Result Diagrams: 10/29/18 05:20 10/29/18 05:20 Labs: Laboratory Results - last 24 hr 10/29/18 10/29/18 05:20 05:20 WBC 13.4 H RBC 3.44 L Hgb 10.8 L Hct 33.0 L MCV 96.0 MCH 31.5 MCHC 32.8 RDW 13.7 Plt Count 270 Neut % (Auto) 60.1 Lymph % (Auto) 22.4 L [place] % (Auto) 13.7 Eos % (Auto) 3.2 Baso % (Auto) 0.6 Neut # (Auto) 8000 H Lymph # (Auto) 3000 [place] # (Auto) 1800 H Eos # (Auto) 400 Baso # (Auto) 100 Sodium 136 L Potassium 3.7 Chloride 102 Carbon Dioxide 25 BUN 13 Creatinine 0.80 Estimated GFR > 60.0 BUN/Creatinine Ratio 16.3 Glucose 97 Calcium 9.1 Assessment & Plan Assessment & Plan narrative: Greg Arriola is an 81-year-old male with a past medical history significant for untreated hypertension, anemia of chronic disease, GERD, BPH and left hip replacement with generalized weakness and physical deconditioning presented with complaints of worsening left lower quadrant abdominal pain. 1. Acute sigmoid diverticulitis with colovesical fistula, present on admission. Active. -patient had abdominal pain and dysuria for approximately 2 weeks prior to admission treated as an outpatient with Bactrim and subsequently Augmentin for 10 days. -Clinically patient continues to improve and is afebrile, abdominal pain and tenderness very mild and nearly resolved. Persistent WBC. -CT scan showed extensive sigmoid diverticulosis with acute diverticulitis and a colovesical fistula. No evidence of abscess. -Blood cultures negative. Urine culture grew E coli which is resistant to ampicillin, gentamicin, and Bactrim. Continue levofloxacin 750 mg daily and metronidazole 500 mg 3 times daily to complete 2 week course. Discontinued Zosyn as lost IV access. -Continue IV fluids until adequately hydrated. Advanced diet which has been well tolerated. Continue to encourage fluids. -Consulted General surgery, Dr. Gonzalez, for sigmoid diverticulitis with colovesicular fistula. We appreciate his time and care of the patient. General surgery does not expect spontaneous closure of colovesicular fistula and recommends outpatient colonoscopy and likely subsequent sigmoid resection and takedown of colovesicular fistula following patient's stabilization and treatment of underlying infection. 2. Acute cystitis, secondary to colovesical fistula, present on admission. Active. -Continue management as above. 4. Hyponatremia, acute on chronic, present on admission. Stable. -Initial sodium 136 and stable. Review of records indicates that this is a chronic issue -Continued IV fluids until adequately hydrated. -Continue to monitor sodium level periodically. 5. Gastroesophageal reflux disorder, stable. -Continue home ranitidine 150 mg daily and 75 mg daily at bedtime. 6. Benign prostatic hypertrophy, chronic, present on admission. Stable. -Patient with acute cystitis due to colovesicular fistula as above. -Previously prescribed tamsulosin but patient reports he does not take this medication. 7. Mild dementia, chronic, present on admission. Stable. -Patient appears alert with good recall. -Continue home donepezil 15 mg nightly. -Patient routinely takes fluoxetine 5 mg daily which is not available on formulary from the pharmacy and he is unable to have his home medication brought in. Fluoxetine available in 10 mg dose which the patient agrees to and will continue fluoxetine 10 mg daily. 8. Generalized weakness with physical deconditioning, chronic, present on admission. Stable. -Patient with history of ground level fall and left hip prosthesis with chronic physical deconditioning and generalized weakness. -Patient has caregivers at home. -Continue PT/OT. Disposition: Anticipate he will need 1-2 additional days in the hospital until abdominal pain discomfort has resolved and/or WBC has normalized. Await general surgeries approval for discharge home with close surgical follow-up outpatient. Quality VTE Deep Vein Thrombosis/Pulmonary Embolism Present on Admission: No
[2018-10-29] MEDS: ENOXAPARIN 40 MG/0.4 ML SYRINGE SUBCUT (08:39)
[2018-10-29] MEDS: metroNIDAZOLE 500 MG TABLET PO ×3 (08:40→20:00)
[2018-10-29] MEDS: CARBIDOPA-LEVODOPA 10/100 TABLET 1 EACH PO ×3 (08:40→20:00)
[2018-10-29] MEDS: FLUoxetine 10 MG CAPSULE PO (08:40)
--- NOTE | 2018-10-29 09:59 | PC.NURSE ---
Day shift: MD and care management notified about Pt's spouse and he actions overnight as reported by NOC RN this AM.
--- NOTE | 2018-10-29 10:25 | PT.IPTN ---
Current Diagnoses Diverticulitis of large intestine without perforation or abscess without bleeding (10/24/18) Physical Therapy Treatment Note M2 PT-IP Current Condition Start: 10/26/18 08:18 Freq: NEEDED Status: Active Protocol: Document 10/26/18 09:10 HH (Rec: 10/26/18 11:30 HH [id number]) Physical Therapy Current Condition Current Condition Evaluation Date 10/26/18 Treatment Diagnosis Acute diverticulitis with colovesical fistula, decreased activity tolerance Onset Date 10/24/18 Weight Bearing Status Weight Bearing Status Weight Bear as Tolerated M3 PT-IP Subjective Start: 10/26/18 08:18 Freq: NEEDED Status: Active Protocol: Document 10/29/18 10:10 CLB (Rec: 10/29/18 11:37 CLB [id number]) Subjective Physical Therapy Visit Type Type Treatment Note Visit Start Time 10:10 Visit Stop Time 10:25 Total Visit Minutes 15 Notes Pt up at EOB with ELECTRICAL SIGN WIRER HELPER upon arrival. Number of CLOTH CALENDER Visits 1 Physical Therapy Visit Comments Patient Comments Pt agreeble to mobilize with PT Therapy Pain Assessment Pain Present Pain Present Denied Pain M4 PT-IP Mobility and Gait Start: 10/26/18 08:18 Freq: NEEDED Status: Active Protocol: Document 10/29/18 10:10 CLB (Rec: 10/29/18 11:37 CLB [id number]) PT-Transfer Assessment Sit to and From Stand Sit to and from Stand Contact Guard Assistance Equipment Transfer Assistive Device Gait Belt Front Wheeled Walker Orthotic/Prosthetic Devices or Brace: No Transfers Transfer Destination Chair Transfer Technique Stand Step Pivot Transfer Ability Level of Assist Contact Guard Assistance Comments Mobility Comments Pt up at EOB with ELECTRICAL SIGN WIRER HELPER upon arrival. Pt required CGA for sit<>stand with cues for hand placement and slow descent. Gait Assessment Gait Gait Assistance Required: Contact Guard Assist Distance (Feet) 30 Able to Maintain Weight Bearing Status Yes During Gait Assistive Devices Assistive Device Gait Belt Front Wheeled Walker Orthotic/Prosthetic Devices or Brace: No Gait Deviations General Gait Pattern Antalgic Decreased Stride Length Decreased Feet Clearance Step-to Gait Factors Limiting Gait Function Factors Limiting Gait Function Decreased Activity Tolerance Decreased Strength Limited Range of Motion Pain Poor Balance Comments Gait Comments Pt fatigues quickly RLE>LLE. Pt needs cues to take larger step with RLE and towards end of gait pt was unable to advance RLE without assist. M5 PT-IP Objective Assessments Start: 10/26/18 08:18 Freq: NEEDED Status: Active Protocol: Document 10/26/18 09:10 HH (Rec: 10/26/18 11:30 HH [id number]) Orientation Orientation/Cognition Level of Alertness Alert Orientation Name Age Birthday Month Date Year Day of Week Place Situation Language Function Ability No Deficits Noted Safety Awareness Understands Safety Issues Memory Description No Deficits Noted Gross Range of Motion Upper Extremity ROM Assessment Within Functional Limits Lower Extremity ROM Assessment Within Functional Limits Strength Upper Extremity Strength Assessment Within Functional Limits Lower Extremity Strength Assessment Within Functional Limits Coordination Assessment Gross Coordination Gross Coordination WNL Sensation Assessment Sensation Gross Sensation WNL M6 PT-IP Treatment Start: 10/26/18 08:18 Freq: NEEDED Status: Active Protocol: Document 10/29/18 10:10 CLB (Rec: 10/29/18 11:37 CLB [id number]) Physical Therapy Treatment Exercises Exercises Ankle Pumps Gluteal Sets Quad Sets Seated Knee Flexion/Extension Education Education Provided Safety M7 PT-IP Assessment and Plan Start: 10/26/18 08:18 Freq: NEEDED Status: Active Protocol: Document 10/29/18 10:10 CLB (Rec: 10/29/18 11:37 CLB [id number]) PT Summary Assessment and Plan Potential Rehabilitation Potential Good Summary Impairments Pain ROM Strength Balance Coordination Sensation Tone Cognition Bed Mobility Transfers Gait Activity Tolerance Progress Towards Goals Progressing Toward Goals Assessment Summary Pt is CGA for transfers with FWW. Pt requires CGA during ambulation and cues to advance RLE and assist with RLE as pt fatigues. Goals Bed Mobility Goal Standby Assistance Transfer Goal Standby Assistance Front Wheeled Walker Gait Goal Standby Assistance Front Wheel Walker Gait Distance 100 Other Goals ambulation Days to Meet Goals 5 Frequency of Treatment Frequency Of Treatment Once a Day Treatment Plan Physical Therapy Treatment Plan Bed Mobility Training Transfer Training Gait Training Therapeutic Exercise Balance Retraining Discharge Planning Hot or Cold Pack Neuromuscular Re-ed Other Recommendations and Next Treatment caregiver training when Focus appropriate, ambulation, bed mobility training, sit <>stand transfers Recommendations To Nursing Amount of Assist Needed 1 Person Assist Discharge Recommendations PT Discharge Recommendations Home with Assistance Home Health
--- NOTE | 2018-10-29 11:22 | CM.DPC ---
Addendum entered by Aditi Acosta R.N. 10/29/18 11:31: Called [facility], and spoke to Niru. Confirmed that they have received the referral. Let her know that patient could be discharged home tomorrow, and will send over discharge summary and update them as well. Original Note: DCP Cont: Checked in with patient and spouse, Maira. Patient alert and oriented, stated, he thinks that he may be able to go home tomorrow as long as his white count comes down. He is continuing with antibiotic therapy. , pleasant, and has been staying in room with patient. Patient is expecting to have home health when he returns home. As stated in recent note from [facility], they do have caregivers in the home available, and are financially able to add more care giving hours if necessary. P: DCP to continue to follow, and will check in with patient as needed before discharge. Aditi Acosta RN/[employer]
[2018-10-29] MEDS: levoFLOXacin 250 MG TABLET 750 MG PO (14:04)
--- NOTE | 2018-10-29 15:54 | PM.PN.1 ---
Subjective Date Patient Seen: 10/29/18 Time Patient Seen: 08:00 Interval history: Feeling better, minimal amount out of bed Tolerating diet No abdominal pain Exam Vital Signs (past 8 hours): - 10/29/18 08:00 10/29/18 08:34 10/29/18 12:00 Temperature 97.1 F L 97.6 F Pulse Rate 100 H 76 Respiratory Rate 16 16 Blood Pressure 155/66 H 125/64 Pulse Oximetry 97 98 96 Oxygen Delivery Method Room Air Oxygen Flow Rate 0 Narrative Exam Narrative: fatugued but looks well minimal LLQ tenderness Objective Labs Result Diagrams: 10/29/18 05:20 10/29/18 05:20 Labs: Laboratory Results - last 24 hr 10/29/18 10/29/18 05:20 05:20 WBC 13.4 H RBC 3.44 L Hgb 10.8 L Hct 33.0 L MCV 96.0 MCH 31.5 MCHC 32.8 RDW 13.7 Plt Count 270 Neut % (Auto) 60.1 Lymph % (Auto) 22.4 L [place] % (Auto) 13.7 Eos % (Auto) 3.2 Baso % (Auto) 0.6 Neut # (Auto) 8000 H Lymph # (Auto) 3000 [place] # (Auto) 1800 H Eos # (Auto) 400 Baso # (Auto) 100 Sodium 136 L Potassium 3.7 Chloride 102 Carbon Dioxide 25 BUN 13 Creatinine 0.80 Estimated GFR > 60.0 BUN/Creatinine Ratio 16.3 Glucose 97 Calcium 9.1 Assessment & Plan Assessment & Plan narrative: 83 yo man with resolving acute diverticulitis and colovessicular fistula Now on abx PO levo pls add metronidazole WBC 13 x2 day with wide variability should normalize prior to d/c. IF no significant improvement tomorrow: return to IV Abx 15minutes of time spent discussing process of preoperative workup and surgical decision makeing with family Quality VTE Deep Vein Thrombosis/Pulmonary Embolism Present on Admission: No
[2018-10-29] MEDS: DONEPEZIL 5 MG TABLET 15 MG PO (16:17)
[2018-10-29] MEDS: ASPIRIN EC 81 MG TABLET 162 MG PO (16:17)
--- NOTE | 2018-10-29 17:41 | OT.IP.TRT ---
Current Diagnoses Diverticulitis of large intestine without perforation or abscess without bleeding (10/24/18) Occupational Therapy Treatment Note M2 OT-IP Current Condition Start: 10/26/18 16:33 Freq: Status: Active Protocol: Document 10/27/18 10:29 CGR (Rec: 10/27/18 10:48 CGR [id number]) Occupational Therapy Current Condition Current Condition Evaluation Date 10/27/18 Treatment Diagnosis acute diverticulitis Diagnosis Onset Date 10/24/18 M3 OT- IP Subjective and Pain Start: 10/26/18 16:33 Freq: Status: Active Protocol: Document 10/29/18 16:20 CCC (Rec: 10/29/18 17:41 CCC [id number]) OT- Subjective Occupational Therapy Visit Type Type Patient Refusal Notes Pt not wanting to shower at this time as had a sponge bath earlier. Pt just wanting to shower at home, however compromised with his to shower tomorrow in AM with OT.
[2018-10-30 00:35] VITALS: O2SAT 95
[2018-10-30 00:38] VITALS: BP 116/59; PULSE 85; RESP 16; TEMP 36.4; O2SAT 95
[2018-10-30 05:05] VITALS: BP 117/53; PULSE 72; RESP 16; TEMP 36.1; O2SAT 95
[2018-10-30 06:22] LABS: Add Manual Diff / Slide Review NO; Basophils Absolute Auto 100 /uL (0-100); Basophils Percent Auto 0.6 % (0-2); Eosinophils Absolute Auto 400 /uL (0-450); Eosinophils Percent Auto 3.4 % (2-4); Hematocrit 32.7 % (41-53); Hemoglobin 10.9 g/dL (13.5-17.5); Lymphocytes Absolute Auto 2700 /uL (1100-4500); Mean Corpuscular HGB Conc 33.2 % (30-36); Mean Corpuscular Hemoglobin 31.7 PG (26-34); Mean Corpuscular Volume 95.3 fL (80-100); Monocytes Absolute Auto 1600 /uL (0-900); Monocytes Percent Auto 14.2 % (3-14); Neutrophils Absolute Auto 6400 /uL (1500-7000); Neutrophils Percent Auto 57.8 % (50-75); Platelet Count 289 X10^3/uL (150-400); Red Blood Cell Count 3.43 X10^6/uL (4.5-5.9); Red Cell Distribution Width 13.7 % (11.6-14.8); White Blood Cell Count 11.1 X10^3/uL (4.5-11.0)
--- NOTE | 2018-10-30 06:39 | PC.NURSE ---
Shift note: Received pt from evening, assessment notable for bruising to right forearm r/t needle sticks, red rash to groin, and pink heels. Pt refuses to float heels but is wearing his SCDS. HYDRANT SETTER did multiple brief changes but did refuse one brief change, HYDRANT SETTER documented it as well. Pt is AxOx4, makes no c/o pain, VSS stable, on room air, rooming in, uses call light appropriately.
[2018-10-30 07:49] VITALS: BP 119/75; PULSE 75; RESP 16; TEMP 36.3; O2SAT 99
[2018-10-30] MEDS: CARBIDOPA-LEVODOPA 10/100 TABLET 1 EACH PO (08:29)
[2018-10-30] MEDS: ENOXAPARIN 40 MG/0.4 ML SYRINGE SUBCUT (08:29)
[2018-10-30] MEDS: FLUoxetine 10 MG CAPSULE PO (08:29)
[2018-10-30] MEDS: metroNIDAZOLE 500 MG TABLET PO (08:29)
[2018-10-30 08:30] VITALS: O2SAT 98
--- NOTE | 2018-10-30 08:42 | PM.PN.1 ---
Subjective Date Patient Seen: 10/30/18 Time Patient Seen: 08:42 Interval history: Pain free General diet limited mobility Exam Vital Signs (past 8 hours): - 10/30/18 05:05 10/30/18 07:49 10/30/18 08:30 Temperature 96.9 F L 97.4 F L Pulse Rate 72 75 Respiratory Rate 16 16 Blood Pressure 117/53 L 119/75 Pulse Oximetry 95 99 98 Oxygen Delivery Method Room Air Oxygen Flow Rate 0 Narrative Exam Narrative: minimall abdominal pain in LLQ with deep palpation Objective Labs Result Diagrams: 10/30/18 05:51 10/29/18 05:20 Labs: Laboratory Results - last 24 hr 10/30/18 05:51 WBC 11.1 H RBC 3.43 L Hgb 10.9 L Hct 32.7 L MCV 95.3 MCH 31.7 MCHC 33.2 RDW 13.7 Plt Count 289 Neut % (Auto) 57.8 Lymph % (Auto) 24.0 L [place] % (Auto) 14.2 H Eos % (Auto) 3.4 Baso % (Auto) 0.6 Neut # (Auto) 6400 Lymph # (Auto) 2700 [place] # (Auto) 1600 H Eos # (Auto) 400 Baso # (Auto) 100 Assessment & Plan Assessment & Plan narrative: 83 yo man with colovessicule fistula and acute diverticulitis Plan: OK for DC as WBC 11.1 very minimally above upper limit of nml of 11 Needs total of 14days abx including time on IV abx - home w/ levo + metronidazole Follow up with surgery 10days or so in office for scheduling of colonoscopy and further discussions of surgery Pt needs to increase activity with walking at home for 1hr daily to improve fitness for surgery Quality VTE Deep Vein Thrombosis/Pulmonary Embolism Present on Admission: No
--- NOTE | 2018-10-30 08:56 | P.DS_ITS ---
History of Present Illness Date Patient Seen: 10/30/18 Chief complaint: Kidney stones Narrative: mabel Arriola is an 81-year-old male with a history of anemia, hypertension not currently on medication, cholelithiasis, GERD, colon polyps, benign prostatic hypertrophy and left hip replacement post fall who presents today with complaints of worsening left lower quadrant pain. Patient had been previously treated by his primary care for cystitis having initially been placed on Bactrim to which the patient developed vomiting and transition to Augmentin for 10 days. The patient states the total duration of his abdominal pain has been approximately 2 weeks however has demonstrated an elevated white count s henri April 2018. The patient denies associated complaints of fevers or chills. He does have rhinitis related to allergies but denies significant congestion or sore throat. He denies neck or back pain and has no chest pain or palpitations, shortness of breath cough or wheezing. He denies gastric pain reports fair appetite and has previously had constipation which appears to been related to opiate use but none recent. Arrival in the ER the patient is afebrile with a temperature of 98.4?, t achycardic at 116 with a blood pressure 134/70, respirations of 15 saturating 95% on room air. Abdominal/pelvis CT finds extensive sigmoid diverticulosis with acute diverticulitis and fistulous communication between the sigmoid colon and bladder, air within the bladder and the bladder diverticulum and the penile urethra. Incidental finding of prominent appendix with hyperdense material and gallstones. On laboratory analysis the patient has with an elevated white count of 18.4, hemoglobin of 12.9 hematocrit 38.4 and platelets of 396. His lactate is 1.3 with a procalcitonin of 0.06. On chemistries is electrolytes are within normal limits and has a BUN of 22 and creatinine of 1.1 with a nonfasting glucose of 114. Dr. Gonzalez has been consulted and will evaluate the patient. Discharge Providers Date of admission: 10/24/18 16:34 Discharge Date: 10/30/18 Primary care physician: Luis Daniel Varghese MD Consults: 10/24/18 17:56 Consult to General Surgery Routine Comment: Consulting Provider: Jarett Gonzalez Reason for consultation: Sigmoid diverticulitis with colovesicular fistula Has provider been notified: Yes 10/24/18 19:56 Consult to Discharge Planning Routine Comment: 10/25/18 14:12 Consult to Physical Therapy Evaluate & Treat Comment: Physician Instructions: Evaluate and Treat 10/25/18 15:03 Consult to Home Health Routine Comment: Reason For Exam: Nursing, P.T, O.T, SECURITY ROVER 10/26/18 10:05 Consult to Occupational Therapy Evaluate & Treat Comment: Physician Instructions: Evaluate and treat 10/26/18 10:06 Consult to Occupational Therapy Evaluate & Treat Comment: Physician Instructions: Evaluate and treat 10/28/18 10:57 Consult to Occupational Therapy Evaluate & Treat Comment: Physician Instructions: Evaluate and treat Consult to Physical Therapy Evaluate & Treat Comment: Physician Instructions: Evaluate and Treat 10/28/18 11:50 Consult to Home Health Routine Comment: referral to [facility] (only agency for [facility]) Reason For Exam: home health RN/OT/PT/SECURITY ROVER/SHUTTLE HAND at d/c Discharge provider: Susana Jimenez MD Summary Discharge Diagnosis: 1. Colovesicular Fistula 2. Diverticulitis 3. Urinary Tract Infection secondary to E.Coli 4.GERD 5. BPH 6. hyponatremia 7. Dementia 8. Weakness 9. Hypertension Hospital Course: The patient is an 83-year-old male who was admitted to the hospital for acute sigmoid diverticulitis with a colovesicular fistula. He was treated with IV antibiotics his urine grew E coli. The patient continued to have significant abdominal pain. Ultimately his pain subsided. His white count improved. He was seen in consultation by General surgery. They recommended outpatient surgical evaluation with plans for plans for operative treatment of his colovesical fistula. The patient was seen and evaluated by PT and OT in the hospital. He was seen by discharge planning he has arrangements at home for additional care. The patient had difficulty with IV access but ultimately was able to be switched to oral antibiotics his white count improved to 11. His abdominal pain resolved. His diet was advanced which he tolerated quite well. He was deemed appropriate for discharge arrangements were made for him to be discharged home. The patient will follow up with Dr. Jarett Stewart as an outpatient for further surgical care. Status at Discharge Cognitive/behavioral status at discharge: oriented Functional status at discharge: wheelchair bound Overall status at discharge: patient is back to baseline Time Spent with Patient Less than 30 minutes Exam Vital Signs (past 8 hours): - 10/30/18 05:05 10/30/18 07:49 10/30/18 08:30 Temperature 96.9 F L 97.4 F L Pulse Rate 72 75 Respiratory Rate 16 16 Blood Pressure 117/53 L 119/75 Pulse Oximetry 95 99 98 Oxygen Delivery Method Room Air Oxygen Flow Rate 0 Narrative Exam Narrative: Pleasant elderly male in no acute distress Lungs: Clear to auscultation Cardiac exam: Regular rate rhythm normal S1-S2 Abdomen: Soft nontender nondistended Extremities: No edema Objective Labs Result Diagrams: 10/30/18 05:51 10/29/18 05:20 Labs: Laboratory Results - last 24 hr 10/30/18 05:51 WBC 11.1 H RBC 3.43 L Hgb 10.9 L Hct 32.7 L MCV 95.3 MCH 31.7 MCHC 33.2 RDW 13.7 Plt Count 289 Neut % (Auto) 57.8 Lymph % (Auto) 24.0 L [place] % (Auto) 14.2 H Eos % (Auto) 3.4 Baso % (Auto) 0.6 Neut # (Auto) 6400 Lymph # (Auto) 2700 [place] # (Auto) 1600 H Eos # (Auto) 400 Baso # (Auto) 100 Discharge Plan Discharge Plan Discharge Problem: Diverticulitis Patient Disposition: Home Discharge comment: F/U with Dr. Cota as scheduled Discharge Med Rec/Prescriptions Prescriptions: New levofloxacin 250 mg Tablet 750 mg PO 1400 5 Days Qty: 15 RF: 0 metronidazole 500 mg Tablet 500 mg PO TID 5 Days Qty: 15 RF: 0 Continued donepezil 10 mg Tablet 15 mg PO QPM RF: 0 fluoxetine 10 mg Tablet 5 mg PO DAILY RF: 0 aspirin 81 mg Tablet,Delayed Release (Dr/Ec) 162 mg PO QPM RF: 0 meclizine 25 mg Tablet 25 mg PO BID PRN (Reason: Vertigo) RF: 0 epinephrine [EpiPen 2-Lorenzo] 0.3 mg/0.3 mL Auto-Injector 0.3 ml IM PRN PRN (Reason: Anaphylaxis) RF: 0 omega 4-uza-nld-fish oil 1,200 (144-216) mg Capsule 1,200 mg PO DAILY RF: 0 multivitamin Tablet 1 tab PO DAILY RF: 0 ranitidine HCl 150 mg Tablet 150 mg PO QAM RF: 0 cholecalciferol (vitamin D3) [Vitamin D3] 2,000 unit Capsule 2,000 unit PO QPM RF: 0 calcium carb-mag ox-zinc sulf 333-133-5 mg Tablet 1 tab PO QAM RF: 0 ranitidine HCl 150 mg Tablet 75 mg PO BEDTIME RF: 0 tramadol 50 mg Tablet 50 mg PO BID Qty: 40 RF: 0 lorazepam 0.5 mg Tablet 0.5 mg PO BID Qty: 20 RF: 0 carbidopa-levodopa 10-100 mg Tablet 1 tab PO TID RF: 0 tamsulosin [Flomax] 0.4 mg Capsule,Extended Release 24hr 0.4 mg PO BEDTIME RF: 0 Follow up/Referrals: Luis Daniel Varghese MD [Primary Care Provider] - Provider Discharge Instructions Diet: Low-sodium and Low-cholesterol Activity: as tolerated Oxygen: not indicated Skin/Wound/Dressing Care Report to your healthcare provider any signs of infection, such as:: chills, fever and increased pain Discharge Data Primary Care Provider: Luis Daniel Varghese Attending Provider: Emmie Kraus Admit Date/Time: 10/24/18 16:34 Quality VTE Deep Vein Thrombosis/Pulmonary Embolism Present on Admission: No
--- NOTE | 2018-10-30 09:30 | PT.IPTN ---
Current Diagnoses Diverticulitis of large intestine without perforation or abscess without bleeding (10/24/18) Physical Therapy Treatment Note M2 PT-IP Current Condition Start: 10/26/18 08:18 Freq: NEEDED Status: Active Protocol: Document 10/26/18 09:10 HH (Rec: 10/26/18 11:30 HH [email or web address]) Physical Therapy Current Condition Current Condition Evaluation Date 10/26/18 Treatment Diagnosis Acute diverticulitis with colovesical fistula, decreased activity tolerance Onset Date 10/24/18 Weight Bearing Status Weight Bearing Status Weight Bear as Tolerated M3 PT-IP Subjective Start: 10/26/18 08:18 Freq: NEEDED Status: Active Protocol: Document 10/30/18 09:00 CLB (Rec: 10/30/18 10:56 CLB [email or web address]) Subjective Physical Therapy Visit Type Type Treatment Note Visit Start Time 09:00 Visit Stop Time 09:30 Total Visit Minutes 30 Notes present for CG training. Number of GEOLOGY TEACHER Visits 2 Physical Therapy Visit Comments Patient Comments Pt agreeble to mobilize with PT Therapy Pain Assessment Pain Present Pain Present Denied Pain M4 PT-IP Mobility and Gait Start: 10/26/18 08:18 Freq: NEEDED Status: Active Protocol: Document 10/30/18 09:00 CLB (Rec: 10/30/18 10:56 CLB [email or web address]) PT-Bed Mobility Assessment Rolling Type of Rolling Log Rolling Roll to Left Level of Assist Minimal Assistance Supine to Sit Supine to Sit Minimal Assistance 1 Person Assistance Bedrails Scooting Scooting to Edge of Bed Standby Assistance PT-Transfer Assessment Sit to and From Stand Sit to and from Stand Contact Guard Assistance Equipment Transfer Assistive Device Gait Belt Front Wheeled Walker Orthotic/Prosthetic Devices or Brace: No Transfers Transfer Destination Chair Bedside Commode Transfer Technique Stand Step Pivot Transfer Ability Level of Assist Contact Guard Assistance Comments Mobility Comments assisted pt with CGA sit< >stand and with ambulation to chair ~10ft. Pt required CGA for sit<>stand and stand pivot transfer to BSC and SBA for balance while MAINTENANCE PLANNING CLERK performed pericare. Pt required assist putting on socks and shoes as well as donning brief. Pt then ambulated to sink to wash hands requiring CGA with LOB self correct when reaching for soap in dispenser. Gait Assessment Gait Gait Assistance Required: Contact Guard Assist Distance (Feet) 20 Assistive Devices Assistive Device Gait Belt Front Wheeled Walker Orthotic/Prosthetic Devices or Brace: No Gait Deviations General Gait Pattern Antalgic Decreased Stride Length Decreased Feet Clearance Step-to Gait Factors Limiting Gait Function Factors Limiting Gait Function Decreased Activity Tolerance Decreased Strength Limited Range of Motion Pain Poor Balance Comments Gait Comments Pt ambulated ~10ft to chair, after brief change pt ambulated to sink and returned to chair. able to assist pt with CGA. M5 PT-IP Objective Assessments Start: 10/26/18 08:18 Freq: NEEDED Status: Active Protocol: Document 10/26/18 09:10 HH (Rec: 10/26/18 11:30 [email or web address]) Orientation Orientation/Cognition Level of Alertness Alert Orientation Name Age Birthday Month Date Year Day of Week Place Situation Language Function Ability No Deficits Noted Safety Awareness Understands Safety Issues Memory Description No Deficits Noted Gross Range of Motion Upper Extremity ROM Assessment Within Functional Limits Lower Extremity ROM Assessment Within Functional Limits Strength Upper Extremity Strength Assessment Within Functional Limits Lower Extremity Strength Assessment Within Functional Limits Coordination Assessment Gross Coordination Gross Coordination WNL Sensation Assessment Sensation Gross Sensation WNL M6 PT-IP Treatment Start: 10/26/18 08:18 Freq: NEEDED Status: Active Protocol: Document 10/30/18 09:00 CLB (Rec: 10/30/18 10:56 CLB [email or web address]) Physical Therapy Treatment Exercises Exercises Quad Sets Seated Knee Flexion/Extension Education Education Provided Safety M7 PT-IP Assessment and Plan Start: 10/26/18 08:18 Freq: NEEDED Status: Active Protocol: Document 10/30/18 09:00 CLB (Rec: 10/30/18 10:56 CLB [email or web address]) PT Summary Assessment and Plan Summary Impairments Pain ROM Strength Balance Coordination Sensation Tone Cognition Bed Mobility Transfers Gait Activity Tolerance Progress Towards Goals Progressing Toward Goals Assessment Summary present and able to assist pt with sit<>stand and provide CGA for ambulation. Pt has hand rail on bed and ladder rope on bed to assist him supine to sit. Pt fatigues quickly and required seated rest break before transferring to [facility] Goals Bed Mobility Goal Standby Assistance Transfer Goal Standby Assistance Front Wheeled Walker Gait Goal Standby Assistance Front Wheel Walker Gait Distance 100 Other Goals ambulation Days to Meet Goals 5 Frequency of Treatment Frequency Of Treatment Once a Day Treatment Plan Physical Therapy Treatment Plan Bed Mobility Training Transfer Training Gait Training Therapeutic Exercise Balance Retraining Discharge Planning Hot or Cold Pack Neuromuscular Re-ed Recommendations To Nursing Amount of Assist Needed 1 Person Assist Discharge Recommendations PT Discharge Recommendations Home with Assistance Home Health
--- NOTE | 2018-10-30 10:27 | CM.DPC ---
Addendum entered by Aditi Acosta R.N. 10/30/18 12:58: Called Yasmin at [facility], her regular number is: [phone], to let her know that patient is being discharged today, and [place] 2:30 ferry. She stated that patient is currently under [place] home [facility], but only occupational therapy. Stated that nursing may not be able to get out this week, but she will double check. The only nurse currently going out to the [facility] is Sumi, and she goes to [facility] on certain days. Spoke to patient and , Maira. She stated that Reid, occupational therapist at [place] has been going into the home once a week. She stated, they are not concerned if they have to wait for nursing to come out. Confirmed that they do have caregiving set up in the home. Original Note: DCP Cont: Patient is being discharged home today. He will be under [facility]. At this time, according to Yasmin at [facility], they do not have a current GAME TESTER, but she stated that nursing can help with any social work msw needs. Updated Dr. Jimenez regarding this in team rounds. Had Ashley call and update [facility] that patient is being discharged today. She went ahead and faxed discharge summary as well, for face to face and orders were already sent. P: Patient is to go home today with [facility] health. They are currently set up with private caregiving in the home. Aditi Acosta RN/Integrated Logistics Operations Manager
[2018-10-30 11:34] VITALS: BP 125/67; PULSE 90; RESP 18; TEMP 36.3; O2SAT 98
--- NOTE | 2018-10-30 11:36 | PC.NURSE ---
Addendum entered by Angela Alston R.N. 10/30/18 15:02: Discharged home at 1430. Out to private vehicle via wheelchair, accompanied by nursing staff. Addendum entered by Angela Alston R.N. 10/30/18 12:03: Reviewed discharge instructions thoroughly with patient and . They know to picker machine operator scripts for 2 PO abx that were sent electronically to [facility], no changes to home meds. Given follow up info, how to get to Dr Gonzalez's office, and the office phone # to call with any concerns that may arise prior to follow up (or if they need to re-schedule follow up for different time/date). Patient and verbalized understanding and stated no further questions. IV was dc'd on an earlier date. Original Note: Shift summary: Awake and alert, oriented X3. Denies chills, pain or body aches. Afebrile. Brief changes PRN, barrier cream to skin in billy-area. Lungs CTA, HRR. Plan is to d/c home this afternoon (leaving at 1430 to catch 1545 ferry to [facility]). Able to make needs known and calls appropriately. Light in reach, chair alarm on.
--- NOTE | 2018-10-30 12:43 | OT.IP.TRT ---
Current Diagnoses Diverticulitis of large intestine without perforation or abscess without bleeding (10/24/18) Occupational Therapy Treatment Note M2 OT-IP Current Condition Start: 10/26/18 16:33 Freq: Status: Active Protocol: Document 10/27/18 10:29 CGR (Rec: 10/27/18 10:48 CGR [email or web address]) Occupational Therapy Current Condition Current Condition Evaluation Date 10/27/18 Treatment Diagnosis acute diverticulitis Diagnosis Onset Date 10/24/18 M3 OT- IP Subjective and Pain Start: 10/26/18 16:33 Freq: Status: Active Protocol: Document 10/30/18 12:30 CCC (Rec: 10/30/18 12:43 [facility] [email or web address]) OT- Subjective Occupational Therapy Visit Type Type Treatment Note Visit Start Time 09:50 Visit Stop Time 10:20 Total Visit Minutes 30 Occupational Therapy Visit Comments Patient Comments Pt agreeable to shower. OT Pain Assessment Pain When Pain Assessed At Rest Pain Present Pain Present Denied Pain M4 OT- IP ADL's Start: 10/26/18 16:33 Freq: Status: Active Protocol: Document 10/30/18 12:30 [facility] (Rec: 10/30/18 12:43 [facility] [email or web address]) OT ADL-Dressing General Eval Upper Body Dressing Ability Moderate Assistance Areas Needing Assistance Underpants/Brief Comments OT Dressing Comments Assist to sarabjit doff socks and initially get pants over his feet along with brief. OT ADL-Toileting General Evaluation Toileting Ability Maximum Assistance Areas Needing Assistance Manage Clothing Perform Perineal Hygiene Comments OT Toileting Comments Pt needing MAX A for completeness for hygiene pt states usually urinates and has a bowel movement at the same. OT ADL-Bathing Bathing Type Bathing Type Shower General Evaluation Bathing Ability Moderate Assistance Areas Needing Assistance Wash/Dry Perineal Area Wash/Dry Lower Extremities Devices Bathing Equipment Hand Held Shower Sprayer Shower Chair with Arms Grab Bars M5 OT- IP IADL's Start: 10/26/18 16:33 Freq: Status: Active Protocol: Document 10/27/18 10:29 CGR (Rec: 10/27/18 10:48 CGR [email or web address]) OT-Instrumental Activities of Daily Living Deficits IADL Deficits Identified Deficits Home Safety Awareness Awareness of Need for Assistance at Home Good Awareness Ability to Problem Solve Emergency Able to Problem Solve Situations Home Safety Comments Pt appears clear minded and follows commands as well as waits for proper set up of items for transfers and ADLs. Medication Management Medication Management No Deficits Identified Money Management Money Management Comments Unsure of who manages money. There is some concern given report from nursing that pt's walks around the room inappropriately clothed in just a brief. Pt reports that they have 4 children, unsure if one of them assists with finances. Meal Preparation Meal Preparation No Deficits Identified Meal Preparation Comments Pt and are already set up for meals on wheels Instructional Support Specialist Instructional Support Specialist Caregiver Provides Assist Driving Driving Concerns Identified Regarding Safety Driving Comments Pt states he does not drive but pt's is likley also unsafe to drive. Unsure of pt' s transportation options at this time. M6 OT- IP Functional Cognition Start: 10/26/18 16:33 Freq: Status: Active Protocol: Document 10/27/18 10:29 CGR (Rec: 10/27/18 10:48 CGR [email or web address]) Cognitive Factors Limiting Selfcare Function Cognitive Ability Level of Alertness Alert Patient Orientation Name Age Birthday Month Date Year Day of Week Place Situation Attention Span Ability Capable of Focused Attention Capable of Sustained Attention Ability to Follow Commands Able to Follow One Step Commands Memory Description No Deficits Noted Safety Awareness No Deficits Noted Problem Solving Ability No deficits Noted Executive Function Ability No Deficits Noted Abstract Thinking Ability No Deficits Noted Cognitive Comments Cognitive Assessment Comments Pt appears WFL for cognition in this session, however, nursing indicated that pt has been inconsistent with answers . Pt may benefit from a formal cog test. Also, AM treatment vs PM treatment may provide different cognitive levels. OT- Vision and Hearing OT- Hearing Assessment OT- Hearing Assessment WFL OT- Vision Assessment Visual Acuity Glasses All The Time Visual Attentiveness WFL Occular Pursuits WFL Visual Convergence WFL Visual Mullins WFL Vision Assessment Comments Pt has delayed tracking but WFL for his age. M7 OT- IP Mobility and Balance Start: 10/26/18 16:33 Freq: Status: Active Protocol: Document 10/30/18 12:30 CCC (Rec: 10/30/18 12:43 CCC [email or web address]) OT-Transfer Assessment Sit to and From Stand Sit to and from Stand Contact Guard Assistance Transfers Transfer Ability Contact Guard Assistance Technique Transfer Destination Bed Chair Shower Stall Devices Transfer Assistive Devices Gait Belt Front Wheeled Walker OT- Balance Assessment Sitting Balance and Reactions Static Sitting Balance Ability Normal Dynamic Sitting Balance Ability Normal Standing Balance and Reactions Static Standing Balance Ability Good Dynamic Standing Balance Ability Fair M8 OT- IP Objective Assessments Start: 10/26/18 16:33 Freq: Status: Active Protocol: Document 10/27/18 10:29 CGR (Rec: 10/27/18 10:48 CGR [email or web address]) OT Gross Range of Motion Upper Extremity Range of Motion Assessment Within Functional Limits OT Strength Upper Extremity Strength Assessment Within Functional Limits Comments Strength Comments Pt is grossly 4/5 throughout OT- Coordination Assessment Upper Extremity Finger to Nose Test Within Functional Limits Finger Tapping Test Within Functional Limits OT-Muscle Tone Assessment Muscle Tone WNL Yes OT Sensation Assessment Comments Summary Comments Pt reports typical sensation Edema Edema Absent M9 OT- IP Assessment and Plan Start: 10/26/18 16:33 Freq: Status: Active Protocol: Document 10/30/18 12:30 CCC (Rec: 10/30/18 12:43 CCC [email or web address]) OT Summary Assessment and Plan Discharge Recommendations OT Discharge Recommendations Home with Assistance Home Health
[2018-10-30] MEDS: ACETAMINOPHEN 325 MG TABLET 650 MG PO (14:01)
== END 2018-10-30 14:30 | disposition home health service (06) | DRG 699 ==
LOC: ED 15:15 → AC 17:10
PROVIDERS: Internal Medicine; Nurse Practitioner Adult Health; Admitting Provider Internal Medicine; Emergency Provider Emergency Medicine; Family Provider Family Medicine; PCP Family Medicine; Visit Provider Internal Medicine
DX: N32.1 Vesicointestinal fistula (principal); N30.00 Acute cystitis without hematuria; K57.32 Diverticulitis of large intestine without perforation or abscess without bleeding; E87.1 Hypo-osmolality and hyponatremia; B96.20 Unspecified Escherichia coli [E. coli] as the cause of diseases classified elsewhere; D64.9 Anemia, unspecified; K21.9 Gastro-esophageal reflux disease without esophagitis; I10 Essential (primary) hypertension; N40.1 Benign prostatic hyperplasia with lower urinary tract symptoms; F03.90 Unspecified dementia, unspecified severity, without behavioral disturbance, psychotic disturbance, mood disturbance, and anxiety; G20 Parkinson's disease
CPT/HCPCS: 36415; 36591; 51798; 74176; 80048; 81001; 83605; 84145; 85025; 87040; 87077; 87086; 87186; 93005; 96365; 97116; 97161; 97166; 97530; 97535; 99231; 99232; 99284; J1650; J2543

== ENCOUNTER 2018-11-29 09:33 | Day surgery (SDC) | payer OTHER, SELFPAY ==
--- NOTE | 2018-11-29 | PATH_ITS ---
[facility] Accession Number: [id number] . 01 Material submitted: . rectum - RECTAL POLYP BIOPSY . 02 Diagnosis: Rectum, Polyp, Biopsy: Hyperplastic polyp. V/11/30/2018 . 02 Electronically signed: . Kenya Walls MD, Pathologist NPI- [id number] . 01 Gross description: . RECTAL POLYP BIOPSY: Received in formalin is 1 fragment(s) of stoner, soft tissue measuring 0.3 x 0.2 x 0.2 cm which is entirely submitted and submitted entirely in 1 cassette(s) /DMC /DMC . 02 Pathologist provided ICD-10: K62.1 . 02 CPT . 987231 Performed at: 01 [facility] [address] [id number] MD Shade Aiken MD Phone: [phone] Performed at: 02 [facility] [address] [place], [place] [id number] MD Kenya Walls MD Phone: [phone]
[2018-11-29 09:58] VITALS: BMI 22.6
--- NOTE | 2018-11-29 10:00 | PM.HP.1 ---
History of Present Illness Date Patient Seen: 11/29/18 Time Patient Seen: 10:00 Chief complaint: [id number] Narrative: 83-year-old man with recent diagnosis of colovesicular fistula -presents for evaluation of colon ahead of plan fistula takedown Last colonoscopy 10 years ago, but overdue given family history of colon cancer in mother By history appears to have had colon polyps in the past Patient History Medical History (System 11/14/18 @ 10:44 by Sendy Crawford) Anemia (Acute) Cholelithiasis (Acute) Colovesical fistula (Acute) Compression fracture of L1 vertebra (Acute) Fall (Acute) Gastroesophageal reflux (Acute) Hypertension (Acute) Pubic ramus fracture (Acute) Right femoral fracture (Acute) Surgical History (System 11/14/18 @ 10:44 by Sendy Crawford) History of left hip replacement (Acute) Family History (System 11/14/18 @ 10:44 by Sendy Crawford) Father Lymphoma Mother Cancer Dementia Brother Cancer Smoker Social History (System 11/14/18 @ 10:44 by Sendy Crawford) marital status: household members: spouse occupational status: previously employed Smoking Status: Never smoker alcohol intake: never substance use type: does not use Family & Social History Social History: household members spouse Tobacco & Substance use: Smoking Status Never smoker alcohol intake never alcohol intake frequency 0-2 drinks per day Substance Use Type does not use Meds Home Medications Medication Instructions Recorded Confirmed Type tamsulosin [Flomax] 0.4 mg PO BEDTIME 09/13/17 11/12/18 History aspirin 162 mg PO QPM 05/10/18 11/29/18 History calcium carb-mag ox-zinc sulf 1 tab PO QAM 05/10/18 11/12/18 History cholecalciferol (vitamin D3) 2,000 unit PO QPM 05/10/18 11/12/18 History [Vitamin D3] donepezil 15 mg PO QPM 05/10/18 11/12/18 History epinephrine [EpiPen 2-Lorenzo] 0.3 ml IM PRN PRN 05/10/18 11/12/18 History fluoxetine 5 mg PO DAILY 05/10/18 11/12/18 History meclizine 25 mg PO BID PRN 05/10/18 11/12/18 History multivitamin 1 tab PO DAILY 05/10/18 11/12/18 History omega 7-ftn-hcz-fish oil 1,200 mg PO DAILY 05/10/18 11/12/18 History ranitidine HCl 75 mg PO BEDTIME 05/10/18 11/12/18 History ranitidine HCl 150 mg PO QAM 05/10/18 11/12/18 History tramadol 50 mg PO BID #40 tab 05/13/18 11/12/18 Rx lorazepam 0.5 mg PO BID #20 tab 05/14/18 11/12/18 Rx carbidopa-levodopa 1 tab PO TID 10/26/18 11/29/18 History Allergies Allergy/AdvReac Type Severity Reaction Status Date / Time bee venom protein (honey bee) Allergy Severe Anaphylaxis Verified 11/29/18 09:52 gabapentin AdvReac Intermediate Hallucinati Verified 11/29/18 09:52 ng hydromorphone [From Dilaudid] AdvReac Intermediate Vomiting Verified 11/29/18 09:52 Review of Systems Constitutional Constitutional: Denies fever(s) Eyes Eyes: Denies bulging eyes ENT Ears, Nose, Mouth, and Throat: No lip swelling Cardiovascular Cardiovascular: Denies generalize swelling Respiratory Respiratory: Denies stridor Gastrointestinal Gastrointestinal: Denies coffee ground emesis Musculoskeletal Musculoskeletal: Denies loss of height Integumentary/Breasts Skin/Breast: Denies wounds Neurologic Neurologic: Denies abnormal speech and Denies confusion Psychiatric Psychiatric: Denies confusion Endocrine Endocrine: Denies deepening of the voice Hematologic/Lymphatic Hematologic/Lymphatic: Denies lymphadenopathy Allergic/Immunologic Allergic/Immunologic: Denies lip swelling Exam Narrative Exam Narrative: Frail Const General: cooperative Orientation: alert [facility] Head: normal to inspection Nose: nares normal Mouth: oral mucosae normal and lip normal Eyes Eyelids: eyelids normal Conjunctivae: conjunctivae normal Sclera: sclerae normal Neck Neck: supple and other (No thyromegally) Cardio Rhythm: regular rhythm Heart Sounds: S1 normal, S2 normal, no gallops, no murmurs and no rubs GI Other: Abdomen soft. Minimally tender Skin General: no rashes or lesions noted Neuro General: alert and awake Psych Appearance: grossly normal Affect: normal affect Assessment & Plan Assessment & Plan narrative: Diagnostic colonoscopy had a planned takedown of colovesicular fistula Risks including bleeding, perforation, , missed lesion, hypoxia all discussed All questions answered
[2018-11-29] MEDS: SODIUM CHLORIDE 0.9% 1,000 ML 200 ML IV (10:07)
[2018-11-29] MEDS: MIDAZOLAM 5 MG/5 ML VIAL IV (10:55)
[2018-11-29] MEDS: fentaNYL 250 MCG/5 ML INJ IV (10:55)
[2018-11-29 11:17] VITALS: BP 122/60; PULSE 72; RESP 12; TEMP 36.4; O2SAT 99
--- NOTE | 2018-11-29 11:18 | P.OP.ENDO_ITS ---
Operative Date/Time/Diagnoses Date of procedure: 11/29/18 Time of procedure: 11:11 Pre-op diagnosis: Diagnostic colonoscopy -for colovesicular fistula Post-op diagnosis: same Procedure & Clinicians Study performed: Diagnostic colonoscopy -complete Same procedure as scheduled: Yes Indications: 83-year-old man with family history of colorectal cancer who presented to the hospital with a colovesicular fistula -colonoscopy to performed to evaluate for malignant fistula Surgeon: Jarett Gonzalez Procedure Notes SCOAP/Timeout: Complete Procedure in detail: Patient was brought to the endoscopy suite, a time-out was completed. He was sedated over the entire course of the procedure with a total of 5 mg of midazolam, 150 micro g of fentanyl. A digital rectal exam was performed notable for an enlarged prostate. 160 cm colonoscope was then introduced through the anus was passed up through the rectal folds and into the distal sigmoid colon -there is extensive diverticular disease. At approximately 30 cm patient had a significant stricture that I could not successfully pass the colonoscope through. The scope was then withdrawn single rectal polyp was seen in the mid rectum -this was removed with Jumbo biopsy forceps. The regular colonoscope was switched out for a pediatric 160 cm colonoscope - this was repeat passed up through the folds the rectum into the distal sigmoid colon. With gentle pressure -and insufflating the water the pediatric scope was able to be successfully advanced through the stricture. I then navigated through the of the remainder of the folds of the colon to the cecum without further difficulty. Cecum was identified via prominent ileocecal valve, a crows foot and a appendiceal orifice. The scope was then slowly removed. Perhaps because of the stricture the more proximal colon was not well prepped. So significant amount of time was spent irrigating and suctioning to be able to well visualize the mucosal surfaces. An adequate job of inspection was performed. There was significant diverticular disease seen within the right and transverse colon, as well as extensive diverticular disease in the sigmoid colon. Withdrawing to the level of the stricture this was closely inspected -there were no mucosal changes other than some purpuric discoloration. It appeared benign. 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
[2018-11-29 11:22] VITALS: BP 120/56; PULSE 66; RESP 14; O2SAT 99
[2018-11-29 11:27] VITALS: BP 116/69; PULSE 77; RESP 18; O2SAT 99
[2018-11-29 11:32] VITALS: BP 127/59; PULSE 68; RESP 11; TEMP 36.1; O2SAT 99
[2018-11-29 11:40] VITALS: BP 125/65; PULSE 64; RESP 14; TEMP 36.6; O2SAT 100
[2018-11-29 12:01] VITALS: BP 128/70; PULSE 71; RESP 15; TEMP 36; O2SAT 99
--- NOTE | 2018-11-29 12:16 | PM.PN.1 ---
Subjective Date Patient Seen: 11/29/18 Time Patient Seen: 12:16 Interval history: Significant discussion with patient and following recovery from sedation in the PACU after colonoscopy today Briefly patient is an 83-year-old man who presented to the hospital 1 month ago with acute diverticulitis and a colovesicular fistula with pneumaturia and fecal contents from his meatus. He was treated with 2 weeks total of antibiotics and recovered from his acute symptoms. He has been at home with chronic ongoing symptoms of cystitis and continue to drain fecal material from his urethra. Colonoscopy today demonstrated a distal sigmoid stricture -which I suspect is at the site of his colovesicular fistula. The mucosa did not have abnormalities consistent with a malignant fistula. His colonoscopy was completed with no additional lesions other than a small rectal polyp -which has been removed. Patient has now been scheduled for 12/12/18 -for hand assisted laparoscopic sigmoid colectomy, colovesical fistula takedown. I had a substantial discussion with patient his again describing the process and risks of surgery. Patient is frail and has an ECOG score of 3, he spends the majority of the day seated. His ability to ambulated is 50ft or less with walker. Has been resistant to engage in a daily walking regiment a head of surgery at my persistent insistence. Further more he has had wt loss in the setting of his fistula and I am concerned for underlying moderate protein calorie malnutrition. Given these factors I made very clear that his colectomy is high risk and the consequences of a potential complication such as anastomotic leak could be severe. For this reason I quoted him a greater than 50% chance of needing a permanent or temporary ostomy. A permanent ostomy would be the best solution if unable to develop adequate colon length. I discussed the real risk of given age and comorbidities. I described that it would most likley he would be discharged to a SNF to recover. Expect sharma to be inplace for 2 weeks. I again recommended pt spend next 2 weeks walking regularly and eating many small frequent meals to optimize fitness and nutrition prior to surgery. Pt and voiced understanding for the risks of surgery and the processes ahead of them. Exam Vital Signs (past 8 hours): - 11/29/18 11:17 11/29/18 11:22 11/29/18 11:27 Temperature 97.5 F L Pulse Rate 72 66 77 Respiratory Rate 12 14 18 Blood Pressure 122/60 120/56 L 116/69 Pulse Oximetry 99 99 99 11/29/18 11:32 11/29/18 11:40 11/29/18 12:01 Temperature 96.9 F L 97.8 F 96.8 F L Pulse Rate 68 64 71 Respiratory Rate 11 L 14 15 Blood Pressure 127/59 L 125/65 128/70 Pulse Oximetry 99 100 99 Oxygen Delivery Method Room Air
== END 2018-11-29 12:12 | disposition home or self-care (01) ==
PROVIDERS: Family Provider Family Medicine; PCP Family Medicine; Visit Provider Surgery
PROC: 0DJD8ZZ Inspection of Lower Intestinal Tract, Via Natural or Artificial Opening Endoscopic (ICD-10-PCS; CPT 45378; principal; 2018-11-29 10:45)
DX: N32.1 Vesicointestinal fistula (principal); K62.1 Rectal polyp; K57.30 Diverticulosis of large intestine without perforation or abscess without bleeding
CPT/HCPCS: 45380; 99152; 99153; J2250; J3010

== ENCOUNTER 2018-12-11 09:20 | Inpatient (IN) | payer OTHER, SELFPAY ==
[2018-12-11 10:05] VITALS: BP 137/70; PULSE 90; RESP 16; TEMP 37.1; O2SAT 98
[2018-12-11 10:32] VITALS: BMI 22.9
[2018-12-11] MEDS: PEG3350/SOD SULF,BICARB,CL/KCL 4,000 ML SOLUTION 4000 ML PO (11:20)
[2018-12-11] MEDS: SODIUM CHLORIDE 0.9% 1,000 ML 75 ML IV ×2 (11:20→23:35)
--- NOTE | 2018-12-11 11:43 | DIET.PN ---
Dietary Progress Note Assessment: Provided ERAS education with Ensure pre-surgery to be consumed 2-4 hrs prior to surgery. Provided instruction on what to expect post surgery. Pt will receive Ensure Surgery Immunonutrition shakes while inpatient. Advised family to purchase additional post surgery shakes available in the cafeteria for discharge. Packet was discussed with good understanding.
[2018-12-11 13:00] VITALS: BP 132/70; PULSE 80; RESP 16; TEMP 36.8; O2SAT 97
[2018-12-11] MEDS: MORPHINE 2 MG/ML INJ IV ×3 (13:02→17:28)
[2018-12-11] MEDS: metroNIDAZOLE 500 MG TABLET 1000 MG PO ×3 (14:20→23:33)
[2018-12-11] MEDS: HEPARIN 5,000 UNIT/ML VIAL 5000 UNIT SUBCUT ×2 (14:21→21:35)
[2018-12-11] MEDS: NEOMYCIN 500 MG TABLET 1000 MG PO ×2 (14:21→21:35)
--- NOTE | 2018-12-11 14:38 | PC.NURSE ---
Resumed care of patient at 1330, patient c/o pain to penis, sharma inserted earlier this shift.Sharma patent and draining, 2mg morphine given, no relief from pain. Dr Roland informed of patients pain, new orders received.
[2018-12-11] MEDS: BELLADONNA/OPIUM SUPPOSITORIES 1 EACH PR (14:47)
[2018-12-11 16:21] VITALS: BP 158/78; PULSE 82; RESP 16; TEMP 36.6; O2SAT 98
--- NOTE | 2018-12-11 17:16 | P.HP_ITS ---
History of Present Illness Date Patient Seen: 12/11/18 Time Patient Seen: 17:09 Chief complaint: [id number] Narrative: 83-year-old man status post hospitalization approximately 3 months ago for acute diverticular flare found to have a colovesicular fistula with pneumaturia and fecal urea. Since this time he has taken a 14 day antibiotic course with defervesced since of his symptoms. He underwent diagnostic colonoscopy which identified an area of stricturing at the presumed site of di verticular fistula however there is no mucosal based lesions suggestive of Crohn's disease or cancer. The remainder of his colonoscopy was unremarkable with the exception was small hamartomatous polyp which was biopsied in the rectum. He now presents for colon prep ahead of planned hand assisted laparoscopic sigmoidectomy and fistula takedown tomorrow. He reports continuing to feel overall poorly, he endorses significant weight loss over the interim, his bladder continues to have symptoms of chronic cystitis from the fecal stream. He is looking forward to surgery and more definitive resolution of these problems. He reports ongoing right lower quadrant tenderness -improved slowly over last several months but still present. Patient History Medical History (Updated 11/30/18 @ 10:58 by Rachel Gutierres RN) Sigmoid diverticulitis (Acute) Anemia (Acute) Cholelithiasis (Acute) Colovesical fistula (Acute) Compression fracture of L1 vertebra (Acute) Fall (Acute) Gastroesophageal reflux (Acute) Hypertension (Acute) Pubic ramus fracture (Acute) Right femoral fracture (Acute) Surgical History (Updated 11/30/18 @ 11:03 by Rachel Gutierres RN) Status post left shoulder hemiarthroplasty (Acute 11/01/18) History of left hip replacement (Acute) Family History (System 11/14/18 @ 10:44 by Sendy Crawford) Father Lymphoma Mother Cancer Dementia Brother Cancer Smoker Social History (System 11/14/18 @ 10:44 by Sendy Crawford) marital status: household members: spouse occupational status: previously employed Smoking Status: Never smoker alcohol intake: never substance use type: does not use Family & Social History Social History: household members spouse Prior Living Arrangements House Safety & Behavioral: Feels Safe in Current Yes Environment Been Physically Hurt or No Threatened By a Person Suicidal Ideation Description None Suicide Plan Description No Plan Tobacco & Substance use: Smoking Status Never smoker alcohol intake never alcohol intake frequency 0-2 drinks per day Substance Use Type does not use Meds Home Medications Medication Instructions Recorded Confirmed Type tamsulosin [Flomax] 0.4 mg PO BEDTIME 09/13/17 11/30/18 History aspirin 162 mg PO QPM 05/10/18 11/30/18 History calcium carb-mag ox-zinc sulf 1 tab PO QAM 05/10/18 11/30/18 History cholecalciferol (vitamin D3) 2,000 unit PO QPM 05/10/18 11/30/18 History [Vitamin D3] donepezil 15 mg PO QPM 05/10/18 11/30/18 History epinephrine [EpiPen 2-Lorenzo] 0.3 ml IM PRN PRN 05/10/18 11/30/18 History fluoxetine 5 mg PO DAILY 05/10/18 11/30/18 History meclizine 25 mg PO BID PRN 05/10/18 11/30/18 History multivitamin 1 tab PO DAILY 05/10/18 11/30/18 History omega 6-mxb-qin-fish oil 1,200 mg PO DAILY 05/10/18 11/30/18 History ranitidine HCl 75 mg PO BEDTIME 05/10/18 11/30/18 History ranitidine HCl 150 mg PO QAM 05/10/18 11/30/18 History tramadol 50 mg PO BID #40 tab 05/13/18 11/30/18 Rx lorazepam 0.5 mg PO BID #20 tab 05/14/18 11/30/18 Rx carbidopa-levodopa 1 tab PO TID 10/26/18 11/30/18 History Allergies Allergy/AdvReac Type Severity Reaction Status Date / Time bee venom protein (honey bee) Allergy Severe Anaphylaxis Verified 11/29/18 09:52 gabapentin AdvReac Intermediate Hallucinati Verified 11/29/18 09:52 ng hydromorphone [From Dilaudid] AdvReac Intermediate Vomiting Verified 11/29/18 09:52 Review of Systems Constitutional Constitutional: Denies fever(s) Eyes Eyes: Denies bulging eyes ENT Ears, Nose, Mouth, and Throat: No lip swelling Cardiovascular Cardiovascular: Denies generalize swelling Respiratory Respiratory: Denies stridor Gastrointestinal Gastrointestinal: Denies coffee ground emesis Musculoskeletal Musculoskeletal: Denies loss of height Integumentary/Breasts Skin/Breast: Denies wounds Neurologic Neurologic: Denies abnormal speech and Denies confusion Psychiatric Psychiatric: Denies confusion Endocrine Endocrine: Denies deepening of the voice Hematologic/Lymphatic Hematologic/Lymphatic: Denies lymphadenopathy Allergic/Immunologic Allergic/Immunologic: Denies lip swelling Exam Vital Signs (past 8 hours): - 12/11/18 10:05 12/11/18 13:00 12/11/18 16:21 Temperature 98.7 F 98.2 F 97.9 F Pulse Rate 90 80 82 Respiratory Rate 16 16 16 Blood Pressure 137/70 132/70 158/78 H Pulse Oximetry 98 97 98 Oxygen Delivery Method Room Air Narrative Exam Narrative: Marshall catheter in place draining urine markedly contaminated by fecal products. Const General: cooperative and healthy appearing Orientation: alert [facility] Head: normal to inspection Nose: nares normal Mouth: oral mucosae normal and lip normal Eyes Eyelids: eyelids normal Conjunctivae: conjunctivae normal Sclera: sclerae normal Neck Neck: supple and other (No thyromegally) Chest Chest: other (LCTAB , regular respiratory effort) Cardio Rhythm: regular rhythm Heart Sounds: S1 normal, S2 normal, no gallops, no murmurs and no rubs GI Other: Abdomen soft, minimally tender in left lower quadrant, tender over the hypogastrium No evidence of peritonitis Skin General: no rashes or lesions noted Neuro General: alert and awake Psych Appearance: grossly normal Affect: normal affect Assessment & Plan Assessment & Plan narrative: 83-year-old man admitted ahead of planned colectomy tomorrow for diverticular colovesicular fistula -4 L prep of GoLYTELY, neomycin, metronidazole -Marshall catheter now in place ahead of surgery, bladder spasm present -B and O suppository - MuliModal pain control with acetaminophen, gabapentin, methocarbamol, opiates -home carbidopa levodopa, ranitidine, low-dose ASA Heparin prophylaxis -okay to give ahead of surgery Significant discussion had with patient, patient's , patient's son as to risks benefits and alternatives to procedure -I described the process of removing the area of infected inflamed colon with it the area of fistula. I described the need to generate additional colonic length to perform a colo colo anastomosis. Given the ongoing inflammation in the area as evidence by a persistent leukocytosis and tenderness in the area I am unsure if I will be able to get adequate colonic length to perform the anastomosis. I described the real potential for permanent end colostomy if this is the case. Furthermore if the anastomosis is able to be completed but it all suspect-given patient's malnutrition, poor functional status, inability to tolerate the metabolic stress of the leak -I would proceed with a diverting loop ileostomy. I described that this is more likely than not. Further risk including stroke, cognitive decline, LA, deconditioning would need to discharge to a nursing facility also discussed. Patient and family members present all endorse current state is unsustainable -ready to proceed to surgery All questions answered Quality VTE Deep Vein Thrombosis/Pulmonary Embolism Present on Admission: No
[2018-12-11] MEDS: OXYCODONE IR 5 MG TABLET PO (17:28)
[2018-12-11 18:00] VITALS: O2SAT 97
[2018-12-11] MEDS: CARBIDOPA-LEVODOPA 10/100 TABLET 1 EACH PO ×2 (18:19→21:35)
[2018-12-11] MEDS: ACETAMINOPHEN 325 MG TABLET 650 MG PO ×2 (18:20→23:32)
[2018-12-11] MEDS: ASPIRIN EC 81 MG TABLET PO (18:20)
[2018-12-11 18:25] LABS: Add Manual Diff / Slide Review NO; Basophils Absolute Auto 100 /uL (0-100); Basophils Percent Auto 0.6 % (0-2); Eosinophils Absolute Auto 200 /uL (0-450); Eosinophils Percent Auto 1.1 % (2-4); Hemoglobin 10.6 g/dL (13.5-17.5); Lymphocytes Absolute Auto 3200 /uL (1100-4500); Lymphocytes Percent Auto 19.6 % (25-40); Mean Corpuscular Hemoglobin 32.2 PG (26-34); Mean Corpuscular Volume 97.7 fL (80-100); Monocytes Absolute Auto 1800 /uL (0-900); Monocytes Percent Auto 11.1 % (3-14); Neutrophils Absolute Auto 11100 /uL (1500-7000); Neutrophils Percent Auto 67.6 % (50-75); Platelet Count 367 X10^3/uL (150-400); Red Blood Cell Count 3.28 X10^6/uL (4.5-5.9); Red Cell Distribution Width 13.6 % (11.6-14.8); White Blood Cell Count 16.4 X10^3/uL (4.5-11.0)
[2018-12-11 18:28] LABS: BUN Creatinine Ratio 17.1 (6-22); Blood Urea Nitrogen 12 mg/dL (9-20); Calcium 8.8 mg/dL (8.4-10.2); Carbon Dioxide 27 mmol/L (22-32); Chloride 102 mmol/L (98-107); Estimated Glomerular Filt Rate > 60.0 mL/min (>60); Glucose 96 mg/dL (80-110); HEMOLYSIS < 15 (0-50); Potassium 3.1 mmol/L (3.4-5.1); Sodium 135 mmol/L (137-145)
[2018-12-11 20:00] VITALS: BP 131/62; PULSE 78; RESP 16; TEMP 36.6; O2SAT 95
[2018-12-11] MEDS: ONDANSETRON 4 MG/2 ML INJ IV (21:15)
[2018-12-11] MEDS: DONEPEZIL 5 MG TABLET 10 MG PO (21:35)
[2018-12-11] MEDS: METHOCARBAMOL 500 MG TABLET PO (21:35)
[2018-12-11 23:00] VITALS: O2SAT 99
[2018-12-11] MEDS: OXYCODONE IR 10 MG TABLET PO (23:33)
[2018-12-12] VITALS (31 sets, daily range): BP systolic 87–140; BP diastolic 47–69; PULSE 59–92; RESP 8–18; TEMP 35.9–36.4; O2SAT 93–99; BMI 22.8
--- NOTE | 2018-12-12 | PATH_ITS ---
[facility] Accession Number: [id number] . 01 Material submitted: . PART A: colon - SIGMOID COLON AND DISTAL RECTUM PART B: body - ANASTOMOTIC DONUTS . 01 Clinical history: . DOUBLE STITCH PINEDO DISTAL . 02 Diagnosis: A. Sigmoid Colon and Distal Rectum, Resection: Segment of colonic mucosa with diverticulitis, mural abscess, serositis and serosal adhesions, consistent with clinical history colovesicular fistula. Negative for dysplasia or malignancy. . B. Anastomatic Donuts, Excisions: Colonic tissue with no diagnostic abnormality. Negative for dysplasia or malignancy. [facility]/12/17/2018 . 02 Electronically signed: . Rob Tenorio MD, PhD, Pathologist NPI- [id number] . 01 Gross description: . (A) Received in formalin, labeled sigmoid / distal rectum, is a segment of colon (length-16.5 cm, proximal diameter-3.5 cm, distal diameter-2.6 cm) with attached adipose tissue (up to 2.5 cm in depth). The resection margins are received stapled. The segment is oriented with a two-tailed black suture indicating the distal end. A perforation (0.2 cm) is identified 0.6 cm from the proximal resection margin. A second perforation (2.0 x 1.5 cm) is identified 0.8 cm distal to the first perforation. The mucosa has stoner compact distorted folds containing diffuse diverticula. No nodules or masses are identified. The resection margins are inked black. Section code: (A1-A2) proximal resection margin with perforation #1 and #2, account service representative longitudinal sections, perforation #1 is entirely submitted; (A3) distal resection margin, account service representative longitudinal sections; (A4-A10) account service representative serial sections submitted proximal to distal. (B) Received in formalin, labeled anastomotic donuts, are two unoriented segments of colon (segment #1: diameter-2.5 x 1.8 cm, length-0.5 cm; segment #2: diameter-3.0 x 1.2 cm, length-0.5 cm) with stoner smooth shiny unremarkable mucosa. The resection margins are inked black. Each is bisected and entirely submitted in cassettes B1-B4, respectively. ([id number]) /MRV . 02 Pathologist provided ICD-10: N32.1 . 02 CPT . 170003, [id number] Performed at: 01 [facility] [address] [place] [address], [place], [place] [id number] MD Sahde Aiken MD Phone: [phone] Performed at: 02 [facility] [address] [place], [place] [id number] MD Kenya Walls MD Phone: [phone]
[2018-12-12] MEDS: ONDANSETRON 4 MG/2 ML INJ IV ×2 (05:31→10:53)
[2018-12-12] MEDS: HEPARIN 5,000 UNIT/ML VIAL 5000 UNIT SUBCUT ×3 (06:29→21:50)
--- NOTE | 2018-12-12 06:34 | PC.NURSE ---
Pt was having pain at beginning of shift, Oxycodone 10mg given. Pt has been vomitting approx 200mL each time sporatically throughout the night because of the Golytely prep. About 600mL total for the shift. Zofran given with no relief. Kept NPO for surgery today. Sharma output 100mL brown liquid. Dr. Martin contacted about oliguria and will pass along. Pt is receiving NS@75mL/hr, I flushed his sharma with 10cc NS, and bladder scan showed only 22mL in bladder.
[2018-12-12] MEDS: ACETAMINOPHEN 325 MG TABLET 650 MG PO (07:23)
[2018-12-12] MEDS: NEOMYCIN 500 MG TABLET 1000 MG PO (07:25)
[2018-12-12] MEDS: POTASSIUM CHLORIDE 20 MEQ TAB 60 MEQ PO (09:31)
[2018-12-12] MEDS: CARBIDOPA-LEVODOPA 10/100 TABLET 1 EACH PO ×2 (09:32→21:52)
--- NOTE | 2018-12-12 10:59 | CM.DANOTE ---
Discharge Planning/Care Management DCP: assessment: case received, EMR reviewed (including the DC summary and CM/DCP notes from pt's admission to in October). Went to room to meet with pt; room empty, pt had been taken to surgery. Pt is an 83 year old male who admitted to care of [facility]: Dr. Hammer Payer: [facility] Adv. PCP: Dr. Marissa Varghese. Left a vm for pt's Jimbo: cell: [phone]: left a vm for her introducing self and role. It is unclear if pt's son Kirk/Ana is here. Will be finding out. PT and his Jimbo are familiar with pt from last admission in October and with initial discussion at that time about this pending surgery and proable snf need afterwards. PT has had several stays in past at [facility] and he did state that if need be he would wish to go there again. He was able to go home at in October with increased care-giving planned and [facility]. Have given an initial referral now to [facility] in case of need. Dr. Gonzalez did state that he had spoken with pt and Jimbo and told them he would need the snf rehab initially before attempting to return home with his home support. [facility] is reviewing case now. Will check in with pt post surgery to discuss this. Both pt and Jimbo had been very clear that a snf out of [place] would be very difficult to manage and [facility] is the only snf in this town. [facility] is also [facility]. Will be following. Pt has complex medical needs at baseline. Jimbo is his POA but he has also designated his son and Jimbo's daughter Teri/Luann to step in if she is not able. The couple also have a disabled son Suhail who also lives on [facility] and sometimes stays with them on the weekends. CM Discharge Assessment Start: 12/12/18 10:43 Freq: Status: Active Protocol: Document 12/12/18 10:44 ITV (Rec: 12/12/18 10:59 ITV [id number]) Discharge Planning Assessment Advance Directives? Yes Advance Directives on File No History Provided By Medical Record Prior Living Arrangements House Household Members spouse Type of transporation used prior to Relies on Others admit Independent with ADL's No Patient/Family Preference Penitentiary Facility If patient plan is SNF: Has PASSR been Yes completed? Whiteboard Updated in Patient Room with No name and ext. # of [employer] Comment pt has just gone to surgery and may not return to this room. Will update board after it is clear where is goes post op Review Status In Process Pre-Anesthesia Assessment Start: 11/30/18 10:43 Freq: Status: Active Protocol: Document 11/30/18 10:43 CAB (Rec: 11/30/18 11:01 [facility] [id number]) Pre-Anesthesia Assessment PAC Comment Discharged from 10/25/18 for acute sigmoid diverticulitis w/colovesicular fistula, multiple records available in [facility] Patient Also Known As (BUD) Bret Patient Information Reviewed Via Chart Review Comment H/H 10.9/32.7 on 10/30/18 @ Seen Specialist in Last 12 Months Yes Specialist Seen General surgeon Primary Language Burmese Preferred Language Burmese Rubber Goods Supervisor Required No Barriers to Learning Memory Comment Mild dementia Hx Anesthesia Reactions No Hx Family Anesthesia Reaction No Hx Malignant Hyperthermia No Hx Blood Transfusion Reaction No Anesthesia Review Requested No Label Sewer Yes: has a md do resident urgent care that comes 2 hrs/day alcohol intake never Smoking Status Never smoker Substance Use Type does not use Pain Present Pain Reported Comment Fecal contents from his meatus Musculoskeletal Symptoms Difficulty Walking History of Falling (Recent or History of Yes ) Patient is completely paralyzed or No completely immobile Prosthesis or Orthotic Device Front Wheel Walker Wheelchair Gait/Transferring Weak Impaired Comment Pt resistant to engage in daily walking program Hx Sleep Apnea No CPAP/BIPAP use not prescribed Currently Taking a Beta Arjun No Can You Climb a Flight of Stairs Without No SOB Anti-Coagulant Therapy No Has a Immigration Attorney No Cardiac Testing No Hx Pacemaker/ICD No Pacemaker Rep Required? 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 Marital Status Lives With spouse Support System Caregiver Patient Discharge Plan Description Penitentiary Facility/Rehab Comment Pt lives on [facility] Do You Have Any Spiritual Beliefs That No May Affect Your HC Choices? Do You Have Any Cultural Practices That No May Affect Your HC Choices? Emergency Contact Name JIMBO BRIONES - Emergency Contact Phone Number C:[phone] H: Advance Directives? Yes Advance Directives on File No Power of Automation Developer Yes Power of Automation Developer Name JIMBO BRIONES Power of Automation Developer
--- NOTE | 2018-12-12 11:12 | PM.PN.1 ---
Subjective Date Patient Seen: 12/12/18 Time Patient Seen: 09:00 Interval history: Tolerated prep OR today for fistula take down Exam Vital Signs (past 8 hours): - 12/12/18 06:00 12/12/18 08:16 12/12/18 10:29 Temperature 97.6 F 97.5 F L 97.5 F L Pulse Rate 83 59 L 71 Respiratory Rate 18 15 15 Blood Pressure 140/68 130/52 L 130/69 Pulse Oximetry 95 99 97 Oxygen Delivery Method Room Air Oxygen Flow Rate 0 Objective Labs Result Diagrams: 12/11/18 17:55 12/11/18 17:55 Labs: Laboratory Results - last 24 hr 12/11/18 12/11/18 12/12/18 17:55 17:55 08:00 WBC 16.4 H RBC 3.28 L Hgb 10.6 L Hct 32.0 L MCV 97.7 MCH 32.2 MCHC 33.0 RDW 13.6 Plt Count 367 Neut % (Auto) 67.6 Lymph % (Auto) 19.6 L [place] % (Auto) 11.1 Eos % (Auto) 1.1 L Baso % (Auto) 0.6 Neut # (Auto) 53182 H Lymph # (Auto) 3200 [place] # (Auto) 1800 H Eos # (Auto) 200 Baso # (Auto) 100 Sodium 135 L Potassium 3.1 L Chloride 102 Carbon Dioxide 27 BUN 12 Creatinine 0.70 Estimated GFR > 60.0 BUN/Creatinine Ratio 17.1 Glucose 96 Calcium 8.8 Blood Type A Positive Antibody Screen Negative Quality VTE Deep Vein Thrombosis/Pulmonary Embolism Present on Admission: No
[2018-12-12] MEDS: ERTAPENEM 1 GM in SODIUM CHLORIDE 0.9% 100 ML 200 ML IV (11:47)
--- NOTE | 2018-12-12 12:31 | SUR.OPER ---
Lithotomy on padded OR bed. [place] Pad Positioner under torso. Head on pillow, arms padded and tucked at sides. Legs secured in padded yellow fins stirrups.
--- NOTE | 2018-12-12 12:32 | SUR.OPER ---
1200 100 ML URINE BROWN CLOUDY
[2018-12-12] MEDS: BUPIVACAINE 0.25% W/ EPI 30 ML VIAL INJ (12:47)
[2018-12-12] MEDS: ACETAMINOPHEN IV 1,000 MG/100 ML VIAL 400 MG IV (14:16)
[2018-12-12] MEDS: LACTATED RINGERS 1,000 ML 100 ML IV ×2 (14:42→17:54)
--- NOTE | 2018-12-12 14:49 | SUR.OPER ---
at 1430 another 100 ml urine drained out of sharma bag..subtotal now 200ml brownish sl cloudy
--- NOTE | 2018-12-12 15:45 | SUR.OPER ---
120 ml of saline with 5 ml methylene blue instilled in bladder at 1540
[2018-12-12] MEDS: METHYLENE BLUE 50 MG/10 ML VIAL 60 MG IV (15:50)
--- NOTE | 2018-12-12 19:04 | P.OP_ITS ---
Operative Date/Time/Diagnoses Date of procedure: 12/12/18 Time of procedure: 17:00 Pre-op diagnosis: Colovesicular fistula Post-op diagnosis: same Procedure & Clinicians Procedure: Hand assisted laparoscopic takedown of colovesicular fistula with sigmoidectomy and stapled side-to-end colorectal anastomosis, laparoscopic takedown of splenic flexure, diverting loop ileostomy. Same procedure as scheduled: Yes Indications: 83-year-old man presented to the hospital approximately 3 months ago with sepsis found to have acute diverticulitis. Diagnosed with colovesicular fistula as well due to fecalurea. He was treated in the acute hospital setting until his septic physiology stabilized and he was able the to be discharged home. He completed a 14 day course of antibiotic. He recovered somewhat -and went on to undergo diagnostic colonoscopy which confirmed the absence of Crohn's disease or cancer, confirming diverticular fistula. He was then taken to surgery. Surgeon: Jarett Gonzalez Knowledge Management Consultant: Nasreen Tabler Click Yes if Unassisted: No Anesthesia Type: General Operative Notes Findings: Mid sigmoid colon densely adherent to bladder with the active inflammation at site of colovesicular fistula Extensive mobilization of high sigmoid colon performed 31 mm end-to-side colorectal anastomosis with EEA stapler, leak test negative After takedown of fistula bladder infused with methylene blue -no active leak identified Superior end of diverting loop ileostomy is proximal, inferior portion distal Closure Type: primary Specimen(s): other (1. Sigmoid colon, 2. Anastomotic donuts ) Estimated Blood Loss (mL): 100 Blood products transfused: none Procedure in detail: Patient was taken to the operating room he was intubated without incident he was placed in low lithotomy position. A time-out was completed. He was prepped and draped in the usual sterile fashion. A 7 mm long vertical midline incision was placed at the level of the umbilicus, this was carried through the subcutaneous tissue until the linea alba was encountered. The linea alba was scored with a Bovie cautery, the 2 edges were elevated with David clamps and the linea alba was divided. Upon this maneuver it was discovered that we were within the rectus sheath using tonsil clamps of the rectus sheath was explored and it was found that we were just to the right of the linea alba decision was moved to the left and the abdomen entered without difficulty. The abdomen was entered utilizing 2 tonsil clamps and Metzenbaum. A finger sweep confirmed the absence of adhesive disease and the fascia was opened for the full length of the incision. Approaching the inferior aspect of the incision there was inflamed bladder that was adherent to the anterior abdominal wall as a consequence a high bladder flap was made to protect the structure. A hand port Iain wound protector was then placed into the wound. Of 5 mm trocar was used to perforate of the hand port the hand port was then sealed over the wound protector and the abdomen insufflated. A 5 mm port was then placed in epigastrium with 2 ports then placed in the right lower quadrant -a 12 mm port just above the ASIS, and a 5 mm port a hand's breath above this. Eventually an additional 5 mm port was placed on the left side at the level of the umbilicus to assist with the splenic flexure takedown. At this point the abdomen was inspected midportion of sigmoid colon was seen d ensely adherent to the bladder with multiple dense inflammatory adhesions. A portion of the lateral 3rd of the sigmoid colon was grasped retracted medially bringing on tension the white line of Toldt which was incised with hook cautery. This was carried superiorly and inferiorly down into the pelvis. The embryologic plane pedal back nicely with a minimal amount of Bovie cautery needed to separate. He then proceeded to carry this plane superiorly along the left pericolic gutter freeing the colon. At the superior aspect of this plane the plane was carried somewhat too deep this was recognized as we were lateral to gerota's fascia. This was corrected and eroded fascia as well as the kidney was left down as the left colon was medialized. A next proceeded to begin to mobilize the more distal aspect of the sigmoid colon quite readily however I was unable at [facility] to adequately retract medially due to the adhesions to the bladder -1 on to take down these adhesions. Using a combination of finger fracture using the hand port as well as judicious use of hook cautery between the sigmoid colon and the bladder wall extensive dense adhesions were taken down. -this was done successfully without injury to the colon and without violating the bladder wall. Ultimately the sigmoid colon was fully dissected free of the bladder. In addition there were inflammatory adhesions to the lateral pelvic sidewall on the left side -these were similarly taken down primarily with finger fracture. Some area of diffuse ooze was noted. A lap pad was packed around this area and we proceeded to moved to a different operative site. At this point we proceeded to take down the splenic flexure laparoscopically - several adhesions between the splenic flexure which was quite high approximate in the diaphragm and the spleen were taken down. Then began to take down the the splenocolic ligament. The omentum was reflected cephalad and was divided off the distal transverse colon. There was some omentum bridging between the left colon and the transverse colon this was divided using ultrasonic tigist. These tigist were then used to fully mobilize the remainder of the splenic flexure the pancreatic tail was encountered but not injured. Several additional further it retroperitoneal adhesions were taken down along the medial aspect of the left mesentery. At this point I felt we had ample length. Returning to the pelvis the diffuse oozing had stopped. Meticulously the structures on the pelvic sidewall on the left side were identified -including the gonadal arteries -just deep and medial to this the ureter was clearly identified. It was preserved. The more medial attachments to the pelvic sidewall were then taken down primarily by individually hooking them with the hook cautery. In this way I was careful not to injure any critical structures. At this point at the level of the sacral promontory the colorectal junction was identified this was brought on tension utilizing the hand via the hand port. at the level of the sacral promontory a window was made in the mesorectum. I then carefully divided the mesentery working more proximally, the superior rectal artery was identified isolated and divided utilizing a vascular staple load. Next the splaying of the tenia was clearly identified I moved approximately 2 cm inferior to this and a window was made in the mesorectum the mesorectum itself was divided using ultrasonic tigist. A green load laparoscopic ARCELIA stapler 60 mm was used to divide the rectum, again below the splaying of the tinea. My fire control assistant went below to the anus and sized the rectum it easily accepted the 31 mm rectal dilator. I then ensured that the length of proximal colon that had been mobilized was adequate. It was. To ensure there was no gross bladder leakage 200 mL of methylene blue dyed saline were infiltrated through the Marshall catheter into the bladder -the wall of the bladder where the significant inflammatory adhesions was carefully inspected -there was no leakage. Bladder was then drained. Next abdomen was deinsufflated utilizing the GelPort the distal sigmoid colon without active inflammation was exterior eyes to. I marked an area just proximal to to the area of active inflammation. Constitute the segment of bowel that was approximately 20 cm in length. The mesentery was taken down -of this disease bowel was divided near the wall of the colon utilizing sequential clamp and tie. I recheck length and found to be mostly adequate -for some additional length the mesentery was scored without violating prominent left colonic artery. Clamp on the specimen side of the mesentery were removed and there was active bleeding - this area was re-clamped and then suture-ligated. A small enterotomy was then made at the boundary of healthy and inflamed colon using this enterotomy the anvil of the 31 mm EEA stapler was slipped inside the lumen of the colon -the spike was used to perforate the colon on the anti mesenteric side. The circular portion of the anvil was placed on the colon so as to avoid any diverticular processes. A green load ARCELIA stapler was then used to divide the bowel -this division occurred just proximal to the enterotomy the ceiling the enterotomy as well as dividing the bowel. The specimen was removed from the field -a double stitch was placed distally to tara orientation. The now well placed anvil was and remainder of the colon was placed inside the abdomen. The hand port was reattached and the abdomen was reinsufflated. The EEA stapler was passed from below and the spike deployed through the proximal rectal staple line the anvil was connected to the stapler and the stapler was carefully closed ensuring no additional tissue was incorporated into the anastomosis. The anastomosis was felt to be well approximated with no undue tension and as a consequence was fired. Donuts were intact after EEA removed. Then proceeded to perform a leak test the pelvis was filled with saline -a sigmoidoscope was then placed into the rectum and the rectum was insufflated my hand occluded the more distal colon. There were no bubbles. Visual inspection of the anastomosis showed it to be well intact. The saline was evacuated. A 19 [place] Angel drain was then placed into the pelvis utilizing the left-sided 5 mm port site. I ensured that the small bowel was not unduly kinked. Tension was again checked on the anastomosis -was found to be without tension. The remainder of the abdomen was then inspected for hemostasis which was found to be adequate At this point the abdomen was deinsufflated ports were withdrawn under direct visualization. The decision was made to perform a diverting loop ileostomy given several factors -patient age in inability to tolerate an anastomotic leak, severe protein calorie malnutrition, inability to produce additional length should the anastomosis need to be taken down -committing the patient to a permanent end- colostomy. Utilizing the GelPort incision site the right colon was readily identified and with that the terminal ileum I measured back approximately 20 cm a small window was made in the mesentery and a quarter-inch Ghassan drain was looped between this -the orientation of the bowel was marked on the anti mesenteric side of it. Next the fascial defect was created. Two David clamps were placed on the cut linea alba edge. A small ellipse of skin just inferior to the umbilicus over the rectus sheath was removed. The subcutaneous tissue was split. A cruciate incision was placed on the anterior fascial sheath. The underlying rectus abdominis muscles were split along their orientation. A cruciate incision incision was placed on the posterior sheath. The defect was wide enough to easily per 5 minutes 2 fingers. The loop of ileum via the [place] drain was easily brought up through the fascial defect. It was then reduced Interceed anti adhesion gauze was then wrapped around the bowel and the bowel was then again brought through the ileostomy fascial defect. Next the of midline incision was closed -fascia was closed using 0 PDS with small bites small travel technique. Local anesthetic was infiltrated into the fascia. The wounds were copiously irrigated and skin was closed using monofilament or bubble suture in a subcuticular fashion. The fascial defect of the 12 mm port was closed using 0 Vicryl suture. Skin glue was applied The drain was sutured in place. Lastly the ileostomy was matured using 3 0 chromic sutures. The superior aspect is proximal -and was brooked, inferior distal. After creation a finger was inserted down both barrels in easily pass below level of the fascia. An ostomy appliance was applied Patient was extubated and brought to PACU without incident Complications: none
--- NOTE | 2018-12-12 19:04 | SUR.PHASEI ---
Remains in PACU primarily due to RR averaging about 8/min. Able despite this to wean off NC O2. AC called to inform family of delay.
--- NOTE | 2018-12-12 19:25 | SUR.PHASEI ---
Eyes open spontaneously now with some fading off to sleep then awake again.
--- NOTE | 2018-12-12 19:52 | SUR.PHASEI ---
Late note: Stoma pink. Very small amount thin bloody dge in bag. U/o @100ml greenish in color. Transferred to AC when more wakeful with improved RR, and [place] >8 x2.
[2018-12-12] MEDS: LACTATED RINGERS 1,000 ML 84 ML IV (20:03)
[2018-12-12] MEDS: DONEPEZIL 5 MG TABLET 10 MG PO (21:51)
[2018-12-12] MEDS: METHOCARBAMOL 500 MG TABLET PO (21:52)
[2018-12-12] MEDS: OXYCODONE IR 5 MG TABLET PO (22:10)
[2018-12-13] VITALS (10 sets, daily range): BP systolic 107–135; BP diastolic 49–66; PULSE 76–89; RESP 15–18; TEMP 36.3–37.5; O2SAT 94–98
[2018-12-13] MEDS: ACETAMINOPHEN 325 MG TABLET 650 MG PO ×4 (00:25→17:43)
[2018-12-13] MEDS: OXYCODONE IR 5 MG TABLET PO ×2 (01:13→05:11)
[2018-12-13] MEDS: ONDANSETRON 4 MG/2 ML INJ IV ×3 (04:15→22:08)
[2018-12-13] MEDS: HEPARIN 5,000 UNIT/ML VIAL 5000 UNIT SUBCUT ×3 (06:15→21:13)
--- NOTE | 2018-12-13 06:20 | PC.NURSE ---
Pt is Alert but and oriented but forgetful. VSS, tolerating room air. Complaining of abdominal pain, Oxycodone and Tylenol given with a decent effect. Colostomy is beefy red, no output yet. Marshall is yellow and clear with 200mL output for shift. Angel drain output 50mL for shift. LR@84mL/hr running as ordered. Tolerating clear Liquids. Patient Belching every so often and said he felt slightly nauseous so Zofran was given. Encouraged patient to get OOB today and start moving around more. Pt hasn't gotten OOB much since admit. Bilateral Calf SDs on throughout night. SQ Heparin given
[2018-12-13 06:51] LABS: Add Manual Diff / Slide Review NO; Basophils Absolute Auto 100 /uL (0-100); Basophils Percent Auto 0.3 % (0-2); Eosinophils Absolute Auto 0 /uL (0-450); Hemoglobin 10.6 g/dL (13.5-17.5); Lymphocytes Absolute Auto 2700 /uL (1100-4500); Lymphocytes Percent Auto 11.8 % (25-40); Mean Corpuscular Hemoglobin 32.4 PG (26-34); Mean Corpuscular Volume 98.2 fL (80-100); Monocytes Absolute Auto 1800 /uL (0-900); Monocytes Percent Auto 8.2 % (3-14); Neutrophils Absolute Auto 18100 /uL (1500-7000); Neutrophils Percent Auto 79.7 % (50-75); Platelet Count 364 X10^3/uL (150-400); Red Blood Cell Count 3.26 X10^6/uL (4.5-5.9); Red Cell Distribution Width 13.9 % (11.6-14.8); White Blood Cell Count 22.7 X10^3/uL (4.5-11.0)
[2018-12-13 07:00] LABS: BUN Creatinine Ratio 14.3 (6-22); Blood Urea Nitrogen 10 mg/dL (9-20); Calcium 8.6 mg/dL (8.4-10.2); Carbon Dioxide 28 mmol/L (22-32); Chloride 102 mmol/L (98-107); Estimated Glomerular Filt Rate > 60.0 mL/min (>60); Glucose 126 mg/dL (80-110); HEMOLYSIS < 15 (0-50); Magnesium 1.5 mg/dL (1.6-2.3); Potassium 4.5 mmol/L (3.4-5.1); Sodium 135 mmol/L (137-145)
[2018-12-13] MEDS: OXYCODONE IR 10 MG TABLET PO ×4 (07:59→21:14)
[2018-12-13] MEDS: LACTATED RINGERS 1,000 ML 84 ML IV ×2 (08:08→21:13)
[2018-12-13] MEDS: METHOCARBAMOL 500 MG TABLET PO ×3 (09:27→21:15)
[2018-12-13] MEDS: CARBIDOPA-LEVODOPA 10/100 TABLET 1 EACH PO ×3 (09:27→21:15)
[2018-12-13] MEDS: MAGNESIUM SULFATE 4 GM/100 ML PIGGYBACK IV (09:30)
[2018-12-13] MEDS: ASPIRIN EC 81 MG TABLET PO (09:31)
--- NOTE | 2018-12-13 11:00 | P.PN_ITS ---
Subjective Date Patient Seen: 12/13/18 Time Patient Seen: 10:55 Interval history: Feeling well this morning, minimal pain Not thirsty, not hungry either Yet to mobilize Exam Vital Signs (past 8 hours): - 12/13/18 05:00 12/13/18 08:00 12/13/18 08:39 Temperature 97.3 F L 97.7 F Pulse Rate 89 77 Respiratory Rate 18 15 Blood Pressure 114/49 L 122/66 Pulse Oximetry 96 98 95 Oxygen Delivery Method Room Air Oxygen Flow Rate 0 Narrative Exam Narrative: Fatigued but nontoxic-appearing Breathing comfortably on room air Regular rate and rhythm Abdomen soft minimally tender nondistended Ileostomy is pink -approximately the 10 cc of sweat in bag, no true output. Incisions clean dry and intact Serous sanguinous drainage from pelvic drain -lasts 24 hours 190 mL Periphery warm Marshall in place draining clear yellow urine Objective Labs Result Diagrams: 12/13/18 06:40 12/13/18 06:40 Labs: Laboratory Results - last 24 hr 12/13/18 12/13/18 06:40 06:40 WBC 22.7 H RBC 3.26 L Hgb 10.6 L Hct 32.0 L MCV 98.2 MCH 32.4 MCHC 33.0 RDW 13.9 Plt Count 364 Neut % (Auto) 79.7 H Lymph % (Auto) 11.8 L [place] % (Auto) 8.2 Eos % (Auto) 0.0 L Baso % (Auto) 0.3 Neut # (Auto) 89985 H Lymph # (Auto) 2700 [place] # (Auto) 1800 H Eos # (Auto) 0 Baso # (Auto) 100 Sodium 135 L Potassium 4.5 D Chloride 102 Carbon Dioxide 28 BUN 10 Creatinine 0.70 Estimated GFR > 60.0 BUN/Creatinine Ratio 14.3 Glucose 126 H Calcium 8.6 Magnesium 1.5 L Assessment & Plan Assessment & Plan narrative: 83-year-old man postop day 1. Status post hand assisted laparoscopic takedown of colovesical fistula and sigmoidectomy with stapled end-to-side colorectal anastomosis. Active inflammation with approximately 20 cm of colon removed. Diverting loop ileostomy due to pt fragility, severe protein calorie malnutrition and active inflammation. No doing well postop, awaiting ileostomy output Plan: PT and OT -to mobilize Ostomy consult Multimodal therapy for pain Marshall to remain in place for 2 weeks Home medications for Parkinson's LR @ 85hr Repleting Mag OK for clears heparin SQ Quality VTE Deep Vein Thrombosis/Pulmonary Embolism Present on Admission: No
--- NOTE | 2018-12-13 16:10 | OT.IP.EVAL ---
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 Action required.) Sigmoid diverticulitis (Acute) Anemia (Acute) Cholelithiasis (Acute) Colovesical fistula (Acute) Compression fracture of L1 vertebra (Acute) Fall (Acute) Gastroesophageal reflux (Acute) Hypertension (Acute) Pubic ramus fracture (Acute) Right femoral fracture (Acute) Surgical History (This Medical Record has been edited. Action required.) Status post left shoulder hemiarthroplasty (Acute 11/01/18) History of left hip replacement (Acute) Occupational Therapy Inpatient Evaluation/Re-Eval M1 PT/OT-IP Prior Functional Status Start: 12/13/18 15:38 Freq: NEEDED Status: Active Protocol: Document 12/13/18 15:39 CGR (Rec: 12/13/18 16:09 CGR [email or web address]) Medical Review Prior Functional Status Communication Pt is able to communicate effectively. Mobility and Gait Per pt and chart, pt was minimally mobile with a FWW ~ 100 ft at a time. Pt uses a manual w/c for most mobility. Activities of Daily Living and IADL's Pt needed assist with bathing, dressing and getting in and out of their flat bed. Prior Functional Level (Other details) Pt lives with his and has an adult autistic son who lives independently near by and comes to stay with them on the weekends. Per the chart, pt's has a history of a head injury. Social History Household Members spouse Living Arrangements House Number of Floors (Floors) 3 or More Floors Number of Stairs To Enter/Railing? Multi level home but pt stays on the first level. He has 3 steps to enter with railing but also has a ramp. Home Environment High Toilet Walk in Shower Ramp Home Equipment Front Wheel Walker Four Wheel Walker Straight Cane Manual Wheelchair Raised Toilet Seat w/Armrests Shower Seat with Backrest Hand Held Shower Long Handled Shoe Horn Pharmacovigilance Safety Expert Sock Aid Bed Rails Grab Bars Near Toilet Grab Bars In Shower Employment Status Retired M2 OT-IP Current Condition Start: 12/13/18 15:38 Freq: Status: Active Protocol: Document 12/13/18 15:39 CGR (Rec: 12/13/18 16:09 CGR [email or web address]) Occupational Therapy Current Condition Current Condition Evaluation Date 12/13/18 Treatment Diagnosis s/p laparoscopic diverticular fistula resection with ostomy placement. M3 OT- IP Subjective and Pain Start: 12/13/18 15:38 Freq: Status: Active Protocol: Document 12/13/18 15:39 CGR (Rec: 12/13/18 16:09 CGR [email or web address]) OT- Subjective Occupational Therapy Visit Type Type Initial Evaluation Visit Start Time 15:15 Visit Stop Time 15:35 Total Visit Minutes 20 Notes entered the room half way through the session. Pt appeared irritated and stated she just leaves whenever she wants to Occupational Therapy Visit Comments Patient Comments I can't get up today OT Pain Assessment Pain When Pain Assessed At Rest Pain Present Pain Present Pain Reported Location Abdomen Intensity 4 Scale Used Numeric (1 - 10) penis Intensity 7 Scale Used Numeric (1 - 10) M4 OT- IP ADL's Start: 12/13/18 15:38 Freq: Status: Active Protocol: Document 12/13/18 15:39 CGR (Rec: 12/13/18 16:09 CGR [email or web address]) OT [id number] Comments OT Self-Feeding Comments Not meal time OT ADL-Grooming Comments OT Grooming Comments Had just begun to attempt minimal clean up in bed d/t unwilling to attempt stand and transfer to chair but pt states he was nauseated and requested to stop session. OT ADL-Oral Care Comments Oral Care Comments Not performed OT ADL-Dressing General Eval Lower Body Dressing Ability Total Assistance Areas Needing Assistance Socks Comments OT Dressing Comments Pt states he uses his sock aide at home because he prefers to do things himself. OT ADL-Toileting Comments OT Toileting Comments Pt with sharma and new ostomy OT ADL-Bathing Comments OT Bathing Comments Not appropriate to attempt on this date. M5 OT- IP IADL's Start: 12/13/18 15:38 Freq: Status: Active Protocol: Document 12/13/18 15:39 CGR (Rec: 12/13/18 16:09 CGR [email or web address]) OT-Instrumental Activities of Daily Living Deficits IADL Deficits Identified Deficits Home Safety Awareness Awareness of Need for Assistance at Home Decreased Awareness Home Safety Comments Needs further assessment. Driving Driving Comments Pt does not drive. M6 OT- IP Functional Cognition Start: 12/13/18 15:38 Freq: Status: Active Protocol: Document 12/13/18 15:39 CGR (Rec: 12/13/18 16:09 CGR [email or web address]) Cognitive Factors Limiting Selfcare Function Cognitive Ability Level of Alertness Alert Patient Orientation Name Age Birthday Month Date Year Day of Week Place Situation Attention Span Ability Capable of Focused Attention Unable to Sustain Attention Ability to Follow Commands Able to Follow One Step Commands with Increased Time Able to Follow One Step Commands with Repetition Safety Awareness Decreased Ability to Apply Precautions Problem Solving Ability Unable to Identify Errors Needs Assist to Identify Solutions Cognitive Comments Cognitive Assessment Comments Pt would benefit from formal cog assessment. OT- Vision and Hearing OT- Hearing Assessment OT- Hearing Assessment WFL OT- Vision Assessment Visual Acuity Glasses All The Time Visual Attentiveness WFL Occular Pursuits WFL Visual Convergence WFL Visual Mullins WFL M7 OT- IP Mobility and Balance Start: 12/13/18 15:38 Freq: Status: Active Protocol: Document 12/13/18 15:39 CGR (Rec: 12/13/18 16:09 CGR [email or web address]) OT- Bed Mobility Assessment Supine to Sit Supine to Sit Assist Maximum Assistance Head of Bed Elevated Sit to Supine Sit to Supine Assist Maximum Assistance 2 Person Assistance Head of Bed Elevated Scooting Scooting to Edge of Bed Maximum Assistance Scooting Up and Down in Bed Total Assistance 2 Person Assistance OT-Transfer Assessment Comments Mobility Comments Pt declined to attempt sit to stand on this date. OT- Balance Assessment Sitting Balance and Reactions Static Sitting Balance Ability Fair Dynamic Sitting Balance Ability Poor M8 OT- IP Objective Assessments Start: 12/13/18 15:38 Freq: Status: Active Protocol: Document 12/13/18 15:39 CGR (Rec: 12/13/18 16:09 CGR [email or web address]) OT Gross Range of Motion Upper Extremity Range of Motion ROM Impairments Not tested at eval d/t sudden onset of nausea OT Strength Comments Strength Comments Not tested at eval d/t sudden onset of nausea, however, pt demonstrates fair muscle strength with bed mobility. OT- Coordination Assessment Comments Coordination Comments Not tested at eval d/t sudden onset of nausea, but demonstrates ability to hold emesis bag and adjust glasses without difficulty. OT-Muscle Tone Assessment Muscle Tone WNL Yes OT Sensation Assessment Edema Edema Absent M9 OT- IP Assessment and Plan Start: 12/13/18 15:38 Freq: Status: Active Protocol: Document 12/13/18 15:39 CGR (Rec: 12/13/18 16:09 CGR [email or web address]) OT Summary Assessment and Plan Potential Rehabilitation Potential Fair Analytic Complexity at Evaluation High Summary OT Impairments Pain Strength Balance Functional Cognition Functional Mobility Grooming Dressing Toileting Bathing Toilet Transfers Shower Transfers Progress Towards Goals Slow Progress due to Pain Assessment Summary Pt presents s/p abdominal sx. Pt with increased pain with minimal movement and requested to stop mobility upon sitting EOB stating that he couldn't stand today. Goals Grooming Goal Independent Dressing Goal Independent Toileting Goal Independent Bathing Goal Independent Toilet Transfer Goal Independent Shower Transfer Goal Standby Assistance Days to Meet Goals 10 Frequency of Treatment Frequency Of Treatment Once a Day Treatment Plan OT Treatment Plan ADL Training Functional Cognition Training Functional Mobility Therapeutic Exercises Patient/Family Education Discharge Planning Other Treatment Recommendations and Next Up to chair as able. Treatment Focus Discharge Recommendations OT Discharge Recommendations SNF Rehab Other Discharge Recommendations SNF vs home depending on progress. Pt appears to have a good set up for home but may benefit from a home health aid for bathing assist as he currently relays on his to assist.
[2018-12-13] MEDS: MORPHINE 4 MG/ML INJ IV ×2 (17:43→22:08)
--- NOTE | 2018-12-13 18:02 | PC.NURSE ---
Ostomy Nurse Consult Note Greg in bed eating a clear liquid diet his at his side. He is having gas pain, but there is no gas in his appliance. He said his mother had a colostomy because she had rectal cancer and he mentioned that it was very smelly. I reassured him that the ostomy appliances have come a long way in the past 30 years and that they are order proof and much easier to manage. I told him and his , Maira that I will be teaching the how to take care of his stoma. Greg said he wants to go to a SNF or rehab before he goes home and I feel this would be a terrific option since he does have some dementia and I am not sure how much his is able to retain. She has been sleeping at the hospital the last several nights and is very tired. She is wanting to get back to [place] to take care of some house hold items but is unable to book a ferry. Raisa the nurse will help her book something on the internet. I gave Gerg and Maira the [employer] new ostomy guide and circled what materials I would like them to cover. I also reviewed what an ileostomy is hand some pouching systems. I will need to spend more time reviewing and teaching them how to manage the ostomy, but will be unavailable over the weekend. I will return tomorrow to change the appliance before the weekend. The stoma is pink and there is a small amount of clear yellow effluent in the pouch. He has a GLENROY drain on his left abd which is draining serosanguenous drainage. Maira was confused by the GLENROY drain and thought it was another stoma. He has a sharma in place. I will return tomorrow to change the appliance and assess the stoma without the appliance. I will also return on Monday for further teaching and stoma evaluation.
--- NOTE | 2018-12-13 18:27 | PT.IPTN ---
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 initially stating that he has 6/10 abdomenal pain. pt agreed to take pain meds and PT to check back. informed nurse. checked on pt again and pt continues to refused. will f/u tomorrow.
[2018-12-13] MEDS: DONEPEZIL 5 MG TABLET 10 MG PO (21:15)
[2018-12-14] VITALS (11 sets, daily range): BP systolic 124–150; BP diastolic 55–79; PULSE 70–100; RESP 14–18; TEMP 36.3–36.9; O2SAT 94–97
[2018-12-14] MEDS: ACETAMINOPHEN 325 MG TABLET 650 MG PO ×2 (00:24→06:34)
[2018-12-14] MEDS: OXYCODONE IR 5 MG TABLET PO ×2 (00:24→03:14)
[2018-12-14] MEDS: MORPHINE 4 MG/ML INJ IV (02:21)
--- NOTE | 2018-12-14 03:27 | PC.NURSE ---
Addendum entered by Christa Alfred R.N. 12/14/18 04:39: 0430 Pt complaining of nausea. Zofran 4mg given. Original Note: Pt is AXO, calm and cooperative. VSS, lung sounds clear bilaterally. Pt has been quite a bit of pain tonight stating 11/21, has been medicated with oxycodone and morphine. He has been having hiccups which is causing much pain even though he is splinting with a pillow. Ostomy is pink and draining clear liquid. Patient has denied nausea for my shift.
[2018-12-14] MEDS: ONDANSETRON 4 MG/2 ML INJ IV ×4 (04:26→18:43)
[2018-12-14] MEDS: HEPARIN 5,000 UNIT/ML VIAL 5000 UNIT SUBCUT ×3 (06:34→21:33)
[2018-12-14 07:14] LABS: BUN Creatinine Ratio 17.1 (6-22); Blood Urea Nitrogen 12 mg/dL (9-20); Calcium 8.1 mg/dL (8.4-10.2); Carbon Dioxide 29 mmol/L (22-32); Chloride 100 mmol/L (98-107); Estimated Glomerular Filt Rate > 60.0 mL/min (>60); Glucose 91 mg/dL (80-110); HEMOLYSIS 27 (0-50); Magnesium 2.1 mg/dL (1.6-2.3); Sodium 133 mmol/L (137-145)
[2018-12-14] MEDS: ASPIRIN EC 81 MG TABLET PO (09:04)
[2018-12-14] MEDS: TAMSULOSIN 0.4 MG CAPSULE PO (09:04)
[2018-12-14] MEDS: CARBIDOPA-LEVODOPA 10/100 TABLET 1 EACH PO ×2 (09:04→14:48)
[2018-12-14] MEDS: METHOCARBAMOL 500 MG TABLET PO ×2 (09:04→14:48)
[2018-12-14] MEDS: OXYCODONE IR 10 MG TABLET PO ×2 (09:09→13:04)
--- NOTE | 2018-12-14 10:40 | PC.NURSE ---
Day shift: Dr Shine made aware of Pt's urine output and no changes made to plan of care. Verbal order for Zofran IV Q4 hours.
--- NOTE | 2018-12-14 11:16 | PT.IIE ---
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 Action required.) Status post left shoulder hemiarthroplasty (Acute 11/01/18) History of left hip replacement (Acute) Medical History (This Medical Record has been edited. Action required.) Sigmoid diverticulitis (Acute) Anemia (Acute) Cholelithiasis (Acute) Colovesical fistula (Acute) Compression fracture of L1 vertebra (Acute) Fall (Acute) Gastroesophageal reflux (Acute) Hypertension (Acute) Pubic ramus fracture (Acute) Right femoral fracture (Acute) Physical Therapy Inpatient Evaluation/Re-Eval M1 PT/OT-IP Prior Functional Status Start: 12/13/18 15:38 Freq: NEEDED Status: Active Protocol: Document 12/14/18 09:45 (Rec: 12/14/18 11:16 [email or web address]) Medical Review Prior Functional Status Medical History Reviewed Yes Communication Pt is able to communicate effectively. Mobility and Gait Per pt and chart, pt was minimally mobile with a FWW ~ 100 ft at a time. Pt uses a manual w/c for most mobility. Activities of Daily Living and IADL's Pt needed assist from his with bathing, dressing and getting in and out of their flat bed. Prior Functional Level (Other details) Pt lives with his and has an adult autistic son who lives independently near by and comes to stay with them on the weekends. Per the chart, pt's has a history of a head injury. Social History Household Members spouse Living Arrangements House Number of Floors (Floors) 3 or More Floors Number of Stairs To Enter/Railing? Multi level home but pt stays on the first level. He has 3 steps to enter with railing but also has a ramp. Home Environment High Toilet Walk in Shower Ramp Home Equipment Front Wheel Walker Four Wheel Walker Straight Cane Manual Wheelchair Raised Toilet Seat w/Armrests Shower Seat with Backrest Hand Held Shower Long Handled Shoe Horn Shovel Loader Operator Sock Aid Bed Rails Grab Bars Near Toilet Grab Bars In Shower Employment Status Retired Additional Social History Comment Pt lives with his Maira. Per SW, Pt and his Maira are familiar with pt from last admission in October and with initial discussion at that time about surgery and proable snf need afterwards. Pt has had several stays in past at [facility] and he did state that if need be he would wish to go there again. He was able to go home at in October with increased care-giving planned and [facility]. M1 PT/OT-IP Prior Functional Status Start: 12/13/18 18:25 Freq: NEEDED Status: Active Protocol: Document 12/14/18 09:45 HH (Rec: 12/14/18 11:16 HH [email or web address]) M2 PT-IP Current Condition Start: 12/13/18 18:25 Freq: NEEDED Status: Active Protocol: Document 12/14/18 09:45 HH (Rec: 12/14/18 11:16 HH [email or web address]) Physical Therapy Current Condition Current Condition Evaluation Date 12/14/18 Treatment Diagnosis assisted laprascopic sigmoid takedown, weakness, difficulty in waling Onset Date 12/13/18 Precautions Abdominal Surgery Precautions Log Roll Lifting Restrictions Gait Belt above Incisional Area Weight Bearing Status Weight Bearing Status Weight Bear as Tolerated M3 PT-IP Subjective Start: 12/13/18 18:25 Freq: NEEDED Status: Active Protocol: Document 12/14/18 09:45 HH (Rec: 12/14/18 11:16 HH [email or web address]) Subjective Physical Therapy Visit Type Type Initial Evaluation Visit Start Time 09:45 Visit Stop Time 10:05 Total Visit Minutes 20 Notes Per RN ,pt has been c/o abdominal pain since sx . He has not gotten out of bed and c/o nausea. Ileostomy in place. Number of PM HEAD COOK Visits 0 Physical Therapy Visit Comments Patient Comments Pt agreeable to mobilize with PT. Patient Goals To be pain free and return home. Therapy Pain Assessment Pain When Pain Assessed During Mobility Pain Present Pain Present Pain Reported Location Abdomen Intensity 7 Scale Used Numeric (1 - 10) Description Acute Pain Behaviors Calling Out Facial Grimacing Pain Management Techniques Timing of Activity with Medications M4 PT-IP Mobility and Gait Start: 12/13/18 18:25 Freq: NEEDED Status: Active Protocol: Document 12/14/18 09:45 HH (Rec: 12/14/18 11:16 [email or web address]) PT-Bed Mobility Assessment Supine to Sit Supine to Sit Maximum Assistance 2 Person Assistance Head of Bed Elevated Bedrails Sit to Supine Sit to Supine Maximum Assistance 2 Person Assistance Bedrails Scooting Scooting to Edge of Bed Maximum Assistance Scooting Up and Down in Bed Maximum Assistance PT-Transfer Assessment Equipment Orthotic/Prosthetic Devices or Brace: No Comments Mobility Comments Pt was in bed with pillow on top of surgical site for compression upon assessment. Pt appears weak generally but willing to attempt sitting at EOB. Attempted supine to sit from elevated HOB 30 degrees but unsuccessful due to pt's calling out for his pain. Pt required extensive max 2pa ( use of transfer sheet) to pivot him towards EOB on L side from semi-seated position . He was then able to sit with B UEs support on bed for 2 mins but cont c/o abdominal pain. Pt was then transferred back to supine with max A x 2. Call light within reach and kept HOB elevated to 30 degrees. Gait Assessment Comments Gait Comments did not assess Stair Climbing Assessment Comments Stair Climbing Comments did not assess PT-Balance Assessment Sitting Balance and Reactions Static Sitting Balance Ability Fair Dynamic Sitting Balance Ability Fair M5 PT-IP Objective Assessments Start: 12/13/18 18:25 Freq: NEEDED Status: Active Protocol: Document 12/14/18 09:45 (Rec: 12/14/18 11:16 [email or web address]) Orientation Orientation/Cognition Level of Alertness Alert Orientation Name Age Birthday Month Date Year Day of Week Place Situation Language Function Ability No Deficits Noted Safety Awareness Understands Safety Issues Memory Description No Deficits Noted Comments from previous hospital admission, nursing indicated that pt has been inconsistent with answers. Gross Range of Motion Upper Extremity ROM Assessment Bilaterally Impaired Lower Extremity ROM Assessment Bilaterally Impaired Strength Upper Extremity Strength Assessment Bilaterally Impaired Lower Extremity Strength Assessment Bilaterally Impaired Comments Strength Comments 3/5 grossly Coordination Assessment Gross Coordination Gross Coordination WNL Sensation Assessment Sensation Gross Sensation WNL Light Touch Intact Proprioception (Position) Intact Muscle Tone Muscle Tone WNL Yes M6 PT-IP Treatment Start: 12/13/18 18:25 Freq: NEEDED Status: Active Protocol: Document 12/14/18 09:45 (Rec: 12/14/18 11:16 [email or web address]) Physical Therapy Treatment Education Education Provided Precautions Weight Bearing Status Post-Op Packet Safety M7 PT-IP Assessment and Plan Start: 12/13/18 18:25 Freq: NEEDED Status: Active Protocol: Document 12/14/18 09:45 (Rec: 12/14/18 11:16 [email or web address]) PT Summary Assessment and Plan Potential Rehabilitation Potential Good Status of Condition at Evaluation Evolving Summary Impairments Pain ROM Strength Balance Bed Mobility Transfers Gait Activity Tolerance Assessment Summary Pt is a mod complexity due to his significant abdominal pain during mobility (s/p hand assisted laprascopic sigmoid takedown of colovesical fistula with sigmoidectomy stapled colorectal anastomosis , laparoscopic splenic flexure takedown) Upon assessment, pt appears very weak with low pain tolerance. He was only able to sit at EOB and required extensive assistance from 2persons for bed mobility at this point, in addition to his sedentary lifestyle ( mostly W/C and bed bound at home), this will become a very high burden for his to be his CG. Pt will be a good candidate for SNF rehab prior to home d/c to improve functional mobility and strength. Goals Bed Mobility Goal Minimal Assistance Transfer Goal Minimal Assistance Gait Goal Minimal Assistance Gait Distance 50 ft Days to Meet Goals 10 Frequency of Treatment Frequency Of Treatment Once a Day Treatment Plan Physical Therapy Treatment Plan Bed Mobility Training Transfer Training Gait Training Therapeutic Exercise Balance Retraining Post Op Education Discharge Planning Hot or Cold Pack Other Recommendations and Next Treatment bed mob, transfer training as Focus lisa Recommendations To Nursing Amount of Assist Needed Total Assistance Discharge Recommendations PT Discharge Recommendations SNF Rehab
[2018-12-14] MEDS: LACTATED RINGERS 1,000 ML 84 ML IV (11:19)
--- NOTE | 2018-12-14 14:37 | P.PN_ITS ---
Subjective Date Patient Seen: 12/14/18 Time Patient Seen: 14:35 Interval history: Complains of abdominal pain. Did not get up with physical therapy today. Exam Vital Signs (past 8 hours): - 12/14/18 08:10 12/14/18 08:29 12/14/18 12:00 Temperature 98.4 F 98.2 F Pulse Rate 70 91 H Respiratory Rate 14 Blood Pressure 145/73 H 144/79 H Pulse Oximetry 95 94 95 Oxygen Delivery Method Room Air Oxygen Flow Rate 0 Narrative Exam Narrative: Lungs are clear to auscultation. Fair effort. Heart regular rate and rhythm without murmur gallop. Abdomen is soft. Drain site looks fine. Marshall draining yellow urine. No cellulitis of his incisions. Alert and oriented. Objective Labs Result Diagrams: 12/13/18 06:40 12/14/18 06:35 Labs: Laboratory Results - last 24 hr 12/14/18 06:35 Sodium 133 L Potassium 4.0 Chloride 100 Carbon Dioxide 29 BUN 12 Creatinine 0.70 Estimated GFR > 60.0 BUN/Creatinine Ratio 17.1 Glucose 91 Calcium 8.1 L Magnesium 2.1 Assessment & Plan Post-op Postoperative Procedures Operation Date: 12/12/18 11:45 Actual Procedures Side Surgeon p hand assisted laprascopic sigmoid takedown of colovesical fistula with si gmoidectomy stapled colorectal anastomosis, laparoscopic splenic flexure takedown, diverting loop ileostomy Not Applicable Jarett Gonzalez MD Postoperative status narrative: Patient doing okay. Ostomy nurse expected later today to continue instruction. Postoperative plan narrative: Continue present care. Will increase his IV fluid just a little bit as is urine output is marginal. Quality VTE Deep Vein Thrombosis/Pulmonary Embolism Present on Admission: No
[2018-12-14] MEDS: DEXTROSE 5%-0.45% NS 1,000 ML 100 ML IV (14:52)
--- NOTE | 2018-12-14 15:08 | PC.NURSE ---
Ostomy Nurse Note Greg isn't feeling well today. He looks tired, yet he remembered me. He perked up when I asked him what his profession was and we talked a little about the [facility]. I removed his ostomy appliance. His stoma measure 25cm oval. It is pink and edematous. The billy-stomal skin is intact. I placed him back in a [employer] 45mm moldable wafer and clear non-filter pouch. He did have a small amount of brown liquid effluent. He still is in agreement to go to a SNF for awhile. His Maira is home on [address] and will return Monday. I also will return Monday to continue with teaching and stoma assessments. GLENROY drain intact, and he still has a sharma.
--- NOTE | 2018-12-14 16:36 | CM.DPC ---
DCP: continued: Checked in with pt this morning: he confirm plan for [facility] when stable for same. weather analyst Rachael Grace did work with pt last evening and will follow again on Monday. /October confirms acceptance: will need specific information on type of ostomy supplies recommended so they can get these in place for pt. [facility] Adv auth will need to be obtained. PASRR: not started.
--- NOTE | 2018-12-14 18:29 | PC.NURSE ---
DRSG CHANGED AROUND RAFFAELE DRAIN SITE.PATIENT DENIES PAIN. REPO.TO BACK.
[2018-12-15] VITALS (9 sets, daily range): BP systolic 140–149; BP diastolic 52–72; PULSE 64–90; RESP 15–18; TEMP 36.5–37.2; O2SAT 96–98
[2018-12-15] MEDS: DEXTROSE 5%-0.45% NS 1,000 ML 100 ML IV (01:49)
[2018-12-15] MEDS: ONDANSETRON 4 MG/2 ML INJ IV ×3 (05:15→09:49)
[2018-12-15] MEDS: HEPARIN 5,000 UNIT/ML VIAL 5000 UNIT SUBCUT ×3 (05:53→20:28)
[2018-12-15] MEDS: MORPHINE 4 MG/ML INJ IV ×2 (07:58→13:59)
[2018-12-15 08:25] LABS: Add Manual Diff / Slide Review NO; Basophils Absolute Auto 100 /uL (0-100); Basophils Percent Auto 0.3 % (0-2); Eosinophils Absolute Auto 300 /uL (0-450); Eosinophils Percent Auto 1.4 % (2-4); Hemoglobin 10.7 g/dL (13.5-17.5); Lymphocytes Absolute Auto 2000 /uL (1100-4500); Lymphocytes Percent Auto 8.1 % (25-40); Mean Corpuscular HGB Conc 32.6 % (30-36); Mean Corpuscular Hemoglobin 32.1 PG (26-34); Mean Corpuscular Volume 98.4 fL (80-100); Monocytes Absolute Auto 1500 /uL (0-900); Monocytes Percent Auto 6.2 % (3-14); Neutrophils Absolute Auto 20500 /uL (1500-7000); Platelet Count 372 X10^3/uL (150-400); Red Blood Cell Count 3.35 X10^6/uL (4.5-5.9); Red Cell Distribution Width 14.3 % (11.6-14.8); White Blood Cell Count 24.3 X10^3/uL (4.5-11.0)
[2018-12-15 08:36] LABS: BUN Creatinine Ratio 18.6 (6-22); Blood Urea Nitrogen 13 mg/dL (9-20); Carbon Dioxide 29 mmol/L (22-32); Chloride 98 mmol/L (98-107); Estimated Glomerular Filt Rate > 60.0 mL/min (>60); Glucose 136 mg/dL (80-110); HEMOLYSIS < 15 (0-50); Magnesium 1.7 mg/dL (1.6-2.3); Potassium 3.8 mmol/L (3.4-5.1); Sodium 132 mmol/L (137-145)
--- NOTE | 2018-12-15 09:07 | DI.RAD.S_ITS ---
PROCEDURE: XR ABDOMEN 1V INDICATIONS: possible post op ileus TECHNIQUE: One view of the abdomen acquired. COMPARISON: , CT, CT KIDNEY URETER BLADDER (KUB), 10/24/2018, 14:20. FINDINGS: Surgical changes and devices: Abdominal drains can be seen. Left hip arthroplasty hardware is seen and there is right proximal femur hardware seen. Pelvic anastomotic staple lines are seen. Bowel: Dilated loops of small bowel are seen, which measure up to 3.2 cm. Dilated loops of colon are also seen, which measure up to 7.2 cm. Soft tissues: No suspicious abdominal calcifications. Visualized solid organ contours appear normal in size. Bones: No suspicious bony lesions. Age-appropriate bony degenerative changes are seen. IMPRESSION: Dilated loops of large and small bowel are seen, which are consistent with the given history of postoperative ileus. If it would be helpful for clinical management decision making, please consider a dedicated CT with IV and oral contrast (with a long dwell time). Dictated by: Jose Alberto Cook M.D. on 12/15/2018 at 9:18 Approved by: Jose Alberto Cook M.D. on 12/15/2018 at 9:20
[2018-12-15] MEDS: SODIUM CHLORIDE 0.9% 1,000 ML 1000 ML IV (09:50)
--- NOTE | 2018-12-15 11:13 | DI.RAD.S_ITS ---
PROCEDURE: XR CHEST 1V INDICATIONS: NG placement TECHNIQUE: One view of the chest was acquired. COMPARISON: [facility], CR, XR ABDOMEN 1V, 12/15/2018, 9:48. [facility], CR, XR CHEST 1V, 05/10/2018, 19:00. FINDINGS: Surgical changes and devices: A gastric tube is seen, the tip overlying the fundus of the stomach. The sidehole is seen below the level of the diaphragm. An upper abdominal drain is seen. Lungs and pleura: An incomplete inspiratory result is noted, causing a crowded appearance to the lung markings. No focal infiltrates are seen. No pneumothorax or significant pleural effusions are seen. Mediastinum: Mediastinal contours appear normal. Heart size is normal. Bones and chest wall: No suspicious bony lesions. with the stylette in place, with one pass through the dura, There is a small amount of intra-abdominal gas seen. IMPRESSION: The tip of the gastric tube is seen overlying the fundus of the stomach. Intraperitoneal gas is seen, which is consistent with the previously given history of recent surgery. Dictated by: Jose Alberto Cook M.D. on 12/15/2018 at 10:32 Approved by: Jose Alberto Cook M.D. on 12/15/2018 at 10:34
--- NOTE | 2018-12-15 11:59 | PC.NURSE ---
Addendum entered by Sumi Diaz R.N. 12/15/18 14:32: PAIN/GI- reports abd discomfort 7 on scale 0/10, given 4mg iv morphine, ng LIS w/dark green fluid approx 450ml, ileostomy producing approx 200ml brown thin fluid. Original Note: AM NOTE - pt is awake, hiccups and nausea, has been ongoing throughout the night and unrelieved by zofran, ileostomy w/scant serous fluid, abd is soft, vanessa drain with serosang drainage, oral care provided, states abd pain 7 on scale 0/10 and given 4mg iv morphine this am, states has had some halluc periods during the night, pt is oriented, speaks softly, appropriate responses, in this am and ordered abd xr, when completed, new order for ng tube, placed with immediate return of 900ml green fluid, xr check for placement completed, ng tube pinned to gown, iv restarted after infiltration and bolus 1l ns completed, spoke to again and new order rec'd for d5 1/2 ns at 125ml hr, pt positioned at 30 degrees, continues with some hiccups, oral care provided.
[2018-12-15] MEDS: PIPERACILLIN-TAZO 3.375 GM/50 ML FROZ.PIGGY IV ×2 (12:12→17:33)
[2018-12-15] MEDS: DEXTROSE 5%-0.45% NS 1,000 ML 125 ML IV ×2 (12:13→21:38)
--- NOTE | 2018-12-15 12:33 | CM.DPC ---
DCP Cont: Went ahead and called [place] to inquire on who his spring encaser is. This week-end, spring encaser is Dilcia. Called Dilcia regarding patient, and let her know that patient is planning to go to [facility]. At this time, unclear if patient will be discharged until Monday, for he has not yet seen ostomy nurse. Dilcia requested that latest P.T. notes, and O.T. notes be faxed. Do not yet have wound notes available. Faxed over last discharge planning note that indicates that surgeon is recommending nursing home. Do not yet have today's physical therapy note in. consulting solution manager during the week from [place] will be Rosario Simeon. P: DCP to continue to follow. Clinical note information was faxed over to Dilcia today, at [facility]. She will review. Aditi Acosta RN/Coupon Redemption Clerk
--- NOTE | 2018-12-15 13:05 | P.PN_ITS ---
Subjective Date Patient Seen: 12/15/18 Time Patient Seen: 08:00 Interval history: POD 4 status post sigmoid colectomy and diverting ileostomy for colovesicular fistula. Nauseous, dry heaving, hiccuping. Feels distended/bloated. Denies chills Exam Vital Signs (past 8 hours): - 12/15/18 07:00 12/15/18 08:00 Temperature 97.7 F Pulse Rate 88 Respiratory Rate 15 Blood Pressure 149/71 H Pulse Oximetry 96 96 Oxygen Delivery Method Room Air Oxygen Flow Rate 0 Narrative Exam Narrative: General elderly man alert and oriented feels uncomfortable. Chest clear to auscultation bilaterally Cardiac regular rate and rhythm Abdomen moderately distended. Appropriately tender to palpation. Incisions clean dry intact. Scant output from ileostomy Objective Labs Result Diagrams: 12/15/18 08:10 12/15/18 08:10 Labs: Laboratory Results - last 24 hr 12/15/18 12/15/18 08:10 08:10 WBC 24.3 H RBC 3.35 L Hgb 10.7 L Hct 33.0 L MCV 98.4 MCH 32.1 MCHC 32.6 RDW 14.3 Plt Count 372 Neut % (Auto) 84.0 H Lymph % (Auto) 8.1 L [place] % (Auto) 6.2 Eos % (Auto) 1.4 L Baso % (Auto) 0.3 Neut # (Auto) 70599 H Lymph # (Auto) 2000 [place] # (Auto) 1500 H Eos # (Auto) 300 Baso # (Auto) 100 Sodium 132 L Potassium 3.8 Chloride 98 Carbon Dioxide 29 BUN 13 Creatinine 0.70 Estimated GFR > 60.0 BUN/Creatinine Ratio 18.6 Glucose 136 H Calcium 8.0 L Magnesium 1.7 Assessment & Plan Post-op (1) Ileus, postoperative: (2) S/P laparoscopic-assisted sigmoidectomy: Postoperative Procedures Operation Date: 12/12/18 11:45 Actual Procedures Side Surgeon p hand assisted laprascopic sigmoid takedown of colovesical fistula with sigmoidectomy stapled colorectal anastomosis, laparoscopic splenic flexure takedown, diverting loop ileostomy Not Applicable Jarett Gonzalez MD Postoperative plan narrative: 83-year-old man postoperative day 4 status post laparoscopic sigmoid colectomy with diverting loop ileostomy for complicated diverticulitis with colovesicular fistula. #Postoperative ileus. Scant output in the ileostomy appliance, nauseous. Abdom inal x-ray reviewed demonstrates dilated small bowel. Place NG tube to low wall suction. NPO -1L bolus now for low urine output and will increase maintenance IVF rate to 125 ml/hr -Monitor and replete electrolytes as needed. #Leukocytosis-WBC 24 uptrending, no fever, hemodynamic instability or peritonitis. -Start Zosyn possible intra abominal infection. Anastamotic leak less likely and functionally patient is diverted. Time Spent With Patient less than 15 minutes Quality VTE Deep Vein Thrombosis/Pulmonary Embolism Present on Admission: No
[2018-12-16] VITALS (8 sets, daily range): BP systolic 125–142; BP diastolic 61–71; PULSE 72–81; RESP 14–18; TEMP 36.6–36.9; O2SAT 95–98
[2018-12-16] MEDS: ONDANSETRON 4 MG/2 ML INJ IV (00:20)
[2018-12-16] MEDS: PIPERACILLIN-TAZO 3.375 GM/50 ML FROZ.PIGGY IV ×3 (01:44→17:51)
[2018-12-16] MEDS: HEPARIN 5,000 UNIT/ML VIAL 5000 UNIT SUBCUT ×3 (05:48→20:30)
[2018-12-16] MEDS: DEXTROSE 5%-0.45% NS 1,000 ML 125 ML IV ×2 (06:18→17:51)
[2018-12-16 07:33] LABS: Add Manual Diff / Slide Review NO; Basophils Absolute Auto 100 /uL (0-100); Basophils Percent Auto 0.3 % (0-2); Eosinophils Absolute Auto 700 /uL (0-450); Eosinophils Percent Auto 4.2 % (2-4); Hematocrit 30.3 % (41-53); Hemoglobin 10.2 g/dL (13.5-17.5); Lymphocytes Absolute Auto 2200 /uL (1100-4500); Lymphocytes Percent Auto 13.5 % (25-40); Mean Corpuscular HGB Conc 33.7 % (30-36); Mean Corpuscular Hemoglobin 32.5 PG (26-34); Mean Corpuscular Volume 96.4 fL (80-100); Monocytes Absolute Auto 1300 /uL (0-900); Neutrophils Absolute Auto 11800 /uL (1500-7000); Platelet Count 300 X10^3/uL (150-400); Red Blood Cell Count 3.14 X10^6/uL (4.5-5.9); Red Cell Distribution Width 13.7 % (11.6-14.8)
[2018-12-16 07:47] LABS: Blood Urea Nitrogen 7 mg/dL (9-20); Calcium 7.9 mg/dL (8.4-10.2); Carbon Dioxide 30 mmol/L (22-32); Chloride 97 mmol/L (98-107); Estimated Glomerular Filt Rate > 60.0 mL/min (>60); Glucose 125 mg/dL (80-110); HEMOLYSIS < 15 (0-50); Magnesium 1.6 mg/dL (1.6-2.3); Phosphorous 3.1 mg/dL (2.3-3.7); Potassium 3.4 mmol/L (3.4-5.1); Sodium 132 mmol/L (137-145)
--- NOTE | 2018-12-16 08:28 | PM.PNPO.1 ---
Subjective Date Patient Seen: 12/16/18 Time Patient Seen: 08:29 Interval history: Patient is postoperative day 5 status post laparoscopic sigmoid colectomy with diverting ileostomy for complicated diverticulitis. His postoperative course is remarkable for a postoperative ileus. Nasogastric tube was placed yesterday and has nearly 2 L of bilious output. Patient reports feeling less distended but still has intractable hiccups. His abdominal pain is minimal. Exam Vital Signs (past 8 hours): - 12/16/18 04:30 Temperature 98.1 F Pulse Rate 75 Respiratory Rate 18 Blood Pressure 142/70 H Pulse Oximetry 96 Oxygen Delivery Method Room Air Oxygen Flow Rate 0 Narrative Exam Narrative: General elderly male with nasogastric tube in place uncomfortable no acute distress Chest clear to auscultation bilaterally Cardiac regular rate and rhythm Abdomen soft significantly less distended as compared to yesterday. Incision is clean dry and intact. Ileostomy productive of scant output. Objective Labs Result Diagrams: 12/16/18 07:20 12/16/18 07:20 Labs: Laboratory Results - last 24 hr 12/15/18 12/15/18 12/16/18 08:10 08:10 07:20 WBC 24.3 H 16.0 H RBC 3.35 L 3.14 L Hgb 10.7 L 10.2 L Hct 33.0 L 30.3 L MCV 98.4 96.4 MCH 32.1 32.5 MCHC 32.6 33.7 RDW 14.3 13.7 Plt Count 372 300 Neut % (Auto) 84.0 H 74.0 Lymph % (Auto) 8.1 L 13.5 L [place] % (Auto) 6.2 8.0 Eos % (Auto) 1.4 L 4.2 H Baso % (Auto) 0.3 0.3 Neut # (Auto) 32006 H 72677 H Lymph # (Auto) 2000 2200 [place] # (Auto) 1500 H 1300 H Eos # (Auto) 300 700 H Baso # (Auto) 100 100 Sodium 132 L Potassium 3.8 Chloride 98 Carbon Dioxide 29 BUN 13 Creatinine 0.70 Estimated GFR > 60.0 BUN/Creatinine Ratio 18.6 Glucose 136 H Calcium 8.0 L Phosphorus Magnesium 1.7 12/16/18 07:20 WBC RBC Hgb Hct MCV MCH MCHC RDW Plt Count Neut % (Auto) Lymph % (Auto) [place] % (Auto) Eos % (Auto) Baso % (Auto) Neut # (Auto) Lymph # (Auto) [place] # (Auto) Eos # (Auto) Baso # (Auto) Sodium 132 L Potassium 3.4 Chloride 97 L Carbon Dioxide 30 BUN 7 L Creatinine 0.70 Estimated GFR > 60.0 BUN/Creatinine Ratio 10.0 Glucose 125 H Calcium 7.9 L Phosphorus 3.1 Magnesium 1.6 Assessment & Plan Post-op Postoperative Procedures Operation Date: 12/12/18 11:45 Actual Procedures Side Surgeon p hand assisted laprascopic sigmoid takedown of colovesical fistula with sigmoidectomy stapled colorectal anastomosis, laparoscopic splenic flexure takedown, diverting loop ileostomy Not Applicable Jarett Gonzalez MD Postoperative plan narrative: Patient is an 83-year-old male postoperative day 5 status post laparoscopic sigmoid colectomy with diverting ileostomy for complicated diverticular disease. Postoperative course is notable for postoperative ileus. Postoperative ileus a nasogastric tube placed yesterday with nearly 2 L of bilious output. Continue nasogastric tube as ileostomy is only scant output today in the output from the nasogastric tube remains bilious. Continue maintenance IV fluids. Parkinson's restart carbidopa levodopa crushed through nasogastric tube today. Hiccups begin baclofen per nasogastric tube today. VT prophylaxis. Continue subcu heparin. Hypokalemia replace Quality VTE Deep Vein Thrombosis/Pulmonary Embolism Present on Admission: No
--- NOTE | 2018-12-16 08:29 | CM.DPC ---
DCP Cont: Went ahead and faxed 12/14 P.T. note to [place], attn: Dilcia. Did not see a P.T. note from yesterday. Will check today for a note, and will fax it to [facility]. Patient should be seeing Rachael Grace tomorrow, regarding ostomy and supplies. Plan is for [facility]. Let [facility] know that patient could potentially be ready for discharge tomorrow. P: DCP to continue to follow closely. Plan is for [facility]. Will fax latest P.T. note to [facility] when received. Aditi Acosta RN/Letter Of Credit Document Examiner
--- NOTE | 2018-12-16 09:11 | CM.DPC ---
Addendum entered by Aditi Acosta R.N. 12/16/18 09:26: Noticed note from surgeon today. Patient not yet ready for discharge, has NG tube in place, decreased output from ostomy, and hiccups. Will check in tomorrow. Original Note: DCP Cont: Spoke to Dilcia at [facility] [place]. She stated that they can approve patient for [facility]. Stated that if he does not discharge tomorrow, she will need to be notified. She is requesting that the latest P.T. note be faxed when received. She also stated that he is being approved secondary to his having the ostomy. She is aware that [facility] Grace has been working with patient, and is planning on coming in Monday for teaching, and supplies. At this time, discharge is looking like tomorrow. Will see surgeon's note today. Nan will notify patient. Nan also discussed group home plan, for looking at notes, they both live on [place], and have a disabled son staying with them on the weekends. She is hoping that this can also be addressed at [facility] before discharge. Let her know,that patient had been getting [facility] at last discharge. Social work may also be beneficial if patient goes back home from [facility] with home health. P: DCP to continue to follow. Patient will be discharged to [facility], have [place] approval. Update Dilcia if patient does not go tomorrow. Aditi Acosta RN/Signal Operator
[2018-12-16] MEDS: CARBIDOPA-LEVODOPA 10/100 TABLET 1 EACH TUBE ×3 (09:25→20:22)
[2018-12-16] MEDS: TAMSULOSIN 0.4 MG CAPSULE PO (09:32)
[2018-12-16] MEDS: POTASSIUM CHLORIDE 60 MEQ in SODIUM CHLORIDE 0.9% 500 ML 88.333 ML IV (10:08)
--- NOTE | 2018-12-16 10:29 | PC.NURSE ---
Addendum entered by Sumi Diaz R.N. 12/16/18 14:50: GI/PAIN/MS - phys therapy in and using fww, gait belt, stood and pivot tsf back to bed, discussed pain mgt, abd discomfort 7 on scale 0/10, continues with periodic episodes hiccups, scd replaced, positioned hob 30 degrees, ng w/pale green thin fluid, clamped for afternoon medications, given 5mg oxycodone also crushed via tube with 30ml water flush. Addendum entered by Sumi Diaz R.N. 12/16/18 11:13: GI/MS/INTEG - phys therapy in and with assistance, pt slowly mobilized to dangle position, denies dizziness, slowly up x 2 person w/fww and gait belt, took few shuffle steps, moved chair in place and slowly sat in chair, waffle cushion placed prior and pt has breakdown james buttock area w/excoriation, cleaned, barrier cream and then allevyn dsg x2 placed, general weakness and exhausted from effort. Original Note: AM NOTE - awake, hiccups present, bt are present, ileostomy w/small qty thin, brown fluid, vanessa drain compressed w/serosang, ng LIS w/green fluid, pt req that we take care of stuck br door so his could get out, reoriented to hospital and pt recognizes that he has halluc, discussed pain mgt and pt declines medication at this time, after speaking to Dr. Medrano this am, pt medications crushed and admin via ng tube and clamped for 30 mintues, pt lisa clamping, reconnected lis and continues to produce thin, green fluid.
--- NOTE | 2018-12-16 11:10 | PT.IPTN ---
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 (12/11/18) Surgery Performed Operation Date: 12/12/18 11:45 Actual Procedures p hand assisted laprascopic sigmoid takedown of colovesical fistula with sigmoidectomy stapled colorectal anastomosis, laparoscopic splenic flexure takedown, diverting loop ileostomy(Not Applicable) - Jarett Gonzalez MD Physical Therapy Treatment Note M2 PT-IP Current Condition Start: 12/13/18 18:25 Freq: NEEDED Status: Active Protocol: Document 12/14/18 09:45 HH (Rec: 12/14/18 11:16 [id number]) Physical Therapy Current Condition Current Condition Evaluation Date 12/14/18 Treatment Diagnosis assisted laprascopic sigmoid takedown, weakness, difficulty in waling Onset Date 12/13/18 Precautions Abdominal Surgery Precautions Log Roll Lifting Restrictions Gait Belt above Incisional Area Weight Bearing Status Weight Bearing Status Weight Bear as Tolerated M3 PT-IP Subjective Start: 12/13/18 18:25 Freq: NEEDED Status: Active Protocol: Document 12/16/18 10:23 DCW (Rec: 12/16/18 11:09 DCW [id number]) Subjective Physical Therapy Visit Type Type Treatment Note Visit Start Time 10:23 Visit Stop Time 10:58 Total Visit Minutes 35 Notes RN requests pt at least stand so she can check possible skin breakdown on his posterior. Physical Therapy Visit Comments Patient Comments Pt willing to try to stand up and get to chair. Therapy Pain Assessment Pain Present Pain Present Pain Reported Location Abdomen Intensity 5 Scale Used Numeric (1 - 10) Description Acute Pain Behaviors Calling Out Facial Grimacing Pain Management Techniques Re-positioning Timing of Activity with Medications M4 PT-IP Mobility and Gait Start: 12/13/18 18:25 Freq: NEEDED Status: Active Protocol: Document 12/16/18 10:23 DCW (Rec: 12/16/18 11:09 DCW [id number]) PT-Bed Mobility Assessment Supine to Sit Supine to Sit Maximum Assistance 2 Person Assistance Head of Bed Elevated Bedrails Scooting Scooting to Edge of Bed Maximum Assistance Scooting Up and Down in Bed Maximum Assistance PT-Transfer Assessment Equipment Transfer Assistive Device Bed Rail Gait Belt Front Wheeled Walker Orthotic/Prosthetic Devices or Brace: No Transfers Transfer Destination Chair Transfer Technique Stand Step Pivot Transfer Ability Level of Assist Moderate Assistance Maximum Assistance 2 Person Assistance Comments Mobility Comments Pt stands Mod A, nursing able to assess skin breakdown and use barrier cream and bandages . Pt willing to attempt treansfer to chair, able to ambulate 2' Mod Ax2 /c FWW, attempted to turn to chair, but became too fatigued. Bed was moved and chair rolled behind him. Pt stand->sit Mod Ax2. M5 PT-IP Objective Assessments Start: 12/13/18 18:25 Freq: NEEDED Status: Active Protocol: Document 12/14/18 09:45 HH (Rec: 12/14/18 11:16 [email or web address]) Orientation Orientation/Cognition Level of Alertness Alert Orientation Name Age Birthday Month Date Year Day of Week Place Situation Language Function Ability No Deficits Noted Safety Awareness Understands Safety Issues Memory Description No Deficits Noted Comments from previous hospital admission, nursing indicated that pt has been inconsistent with answers. Gross Range of Motion Upper Extremity ROM Assessment Bilaterally Impaired Lower Extremity ROM Assessment Bilaterally Impaired Strength Upper Extremity Strength Assessment Bilaterally Impaired Lower Extremity Strength Assessment Bilaterally Impaired Comments Strength Comments 3/5 grossly Coordination Assessment Gross Coordination Gross Coordination WNL Sensation Assessment Sensation Gross Sensation WNL Light Touch Intact Proprioception (Position) Intact Muscle Tone Muscle Tone WNL Yes M6 PT-IP Treatment Start: 12/13/18 18:25 Freq: NEEDED Status: Active Protocol: Document 12/14/18 09:45 HH (Rec: 12/14/18 11:16 [email or web address]) Physical Therapy Treatment Education Education Provided Precautions Weight Bearing Status Post-Op Packet Safety M7 PT-IP Assessment and Plan Start: 12/13/18 18:25 Freq: NEEDED Status: Active Protocol: Document 12/16/18 10:23 DCW (Rec: 12/16/18 11:09 DCW [id number]) PT Summary Assessment and Plan Summary Impairments Pain ROM Strength Balance Bed Mobility Transfers Gait Activity Tolerance Assessment Summary Due to pt's multiple ongoing medical issues, pt had a difficult time with mobility. Still requires Max Ax2 with all bed mobility, however was able to maintain standing with Mod Ax2, repeated verbal cues for improved posture. Pt only tolerated 2' ambulation during attempted bed->chair transfer before fatiguing, nursing assisted moving bed and getting recliner down behind him. Waffle cushion placed under pt to decrease potential for more skin breakdown, pt left in recliner with call button in reach and nursing in the room. Goals Bed Mobility Goal Minimal Assistance Transfer Goal Minimal Assistance Gait Goal Minimal Assistance Gait Distance 50 ft Days to Meet Goals 10 Frequency of Treatment Frequency Of Treatment Once a Day Treatment Plan Physical Therapy Treatment Plan Bed Mobility Training Transfer Training Gait Training Therapeutic Exercise Balance Retraining Post Op Education Discharge Planning Hot or Cold Pack Other Recommendations and Next Treatment bed mob, transfer training as Focus lisa Recommendations To Nursing Amount of Assist Needed Total Assistance Discharge Recommendations PT Discharge Recommendations SNF Rehab
--- NOTE | 2018-12-16 12:35 | PT.IPTN ---
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 (12/11/18) Surgery Performed Operation Date: 12/12/18 11:45 Actual Procedures p hand assisted laprascopic sigmoid takedown of colovesical fistula with sigmoidectomy stapled colorectal anastomosis, laparoscopic splenic flexure takedown, diverting loop ileostomy(Not Applicable) - Jarett Gonzalez MD Physical Therapy Treatment Note M2 PT-IP Current Condition Start: 12/13/18 18:25 Freq: NEEDED Status: Active Protocol: Document 12/14/18 09:45 HH (Rec: 12/14/18 11:16 [email or web address]) Physical Therapy Current Condition Current Condition Evaluation Date 12/14/18 Treatment Diagnosis assisted laprascopic sigmoid takedown, weakness, difficulty in waling Onset Date 12/13/18 Precautions Abdominal Surgery Precautions Log Roll Lifting Restrictions Gait Belt above Incisional Area Weight Bearing Status Weight Bearing Status Weight Bear as Tolerated M3 PT-IP Subjective Start: 12/13/18 18:25 Freq: NEEDED Status: Active Protocol: Document 12/16/18 10:23 DCW (Rec: 12/16/18 11:09 DCW [id number]) Subjective Physical Therapy Visit Type Type Treatment Note Visit Start Time 10:23 Visit Stop Time 10:58 Total Visit Minutes 35 Notes RN requests pt at least stand so she can check possible skin breakdown on his posterior. Physical Therapy Visit Comments Patient Comments Pt willing to try to stand up and get to chair. Therapy Pain Assessment Pain Present Pain Present Pain Reported Location Abdomen Intensity 5 Scale Used Numeric (1 - 10) Description Acute Pain Behaviors Calling Out Facial Grimacing Pain Management Techniques Re-positioning Timing of Activity with Medications M4 PT-IP Mobility and Gait Start: 12/13/18 18:25 Freq: NEEDED Status: Active Protocol: Document 12/16/18 10:23 DCW (Rec: 12/16/18 11:09 DCW [id number]) PT-Bed Mobility Assessment Supine to Sit Supine to Sit Maximum Assistance 2 Person Assistance Head of Bed Elevated Bedrails Scooting Scooting to Edge of Bed Maximum Assistance Scooting Up and Down in Bed Maximum Assistance PT-Transfer Assessment Equipment Transfer Assistive Device Bed Rail Gait Belt Front Wheeled Walker Orthotic/Prosthetic Devices or Brace: No Transfers Transfer Destination Chair Transfer Technique Stand Step Pivot Transfer Ability Level of Assist Moderate Assistance Maximum Assistance 2 Person Assistance Comments Mobility Comments Pt stands Mod A, nursing able to assess skin breakdown and use barrier cream and bandages . Pt willing to attempt treansfer to chair, able to ambulate 2' Mod Ax2 /c FWW, attempted to turn to chair, but became too fatigued. Bed was moved and chair rolled behind him. Pt stand->sit Mod Ax2. M5 PT-IP Objective Assessments Start: 12/13/18 18:25 Freq: NEEDED Status: Active Protocol: Document 12/14/18 09:45 HH (Rec: 12/14/18 11:16 [email or web address]) Orientation Orientation/Cognition Level of Alertness Alert Orientation Name Age Birthday Month Date Year Day of Week Place Situation Language Function Ability No Deficits Noted Safety Awareness Understands Safety Issues Memory Description No Deficits Noted Comments from previous hospital admission, nursing indicated that pt has been inconsistent with answers. Gross Range of Motion Upper Extremity ROM Assessment Bilaterally Impaired Lower Extremity ROM Assessment Bilaterally Impaired Strength Upper Extremity Strength Assessment Bilaterally Impaired Lower Extremity Strength Assessment Bilaterally Impaired Comments Strength Comments 3/5 grossly Coordination Assessment Gross Coordination Gross Coordination WNL Sensation Assessment Sensation Gross Sensation WNL Light Touch Intact Proprioception (Position) Intact Muscle Tone Muscle Tone WNL Yes M6 PT-IP Treatment Start: 12/13/18 18:25 Freq: NEEDED Status: Active Protocol: Document 12/14/18 09:45 HH (Rec: 12/14/18 11:16 [email or web address]) Physical Therapy Treatment Education Education Provided Precautions Weight Bearing Status Post-Op Packet Safety M7 PT-IP Assessment and Plan Start: 12/13/18 18:25 Freq: NEEDED Status: Active Protocol: Document 12/16/18 10:23 DCW (Rec: 12/16/18 11:09 DCW [id number]) PT Summary Assessment and Plan Summary Impairments Pain ROM Strength Balance Bed Mobility Transfers Gait Activity Tolerance Assessment Summary Due to pt's multiple ongoing medical issues, pt had a difficult time with mobility. Still requires Max Ax2 with all bed mobility, however was able to maintain standing with Mod Ax2, repeated verbal cues for improved posture. Pt only tolerated 2' ambulation during attempted bed->chair transfer before fatiguing, nursing assisted moving bed and getting recliner down behind him. Waffle cusion placed under pt to decrease potential for more skin breakdown, pt left in recliner with call button in reach and nursing in the room. Returned 12:15-12:30 to assist nursing with transfer back to bed. Pt stand-pivot transfer Max Ax1, nursing able to roll bed up behind pt before he sat. Goals Bed Mobility Goal Minimal Assistance Transfer Goal Minimal Assistance Gait Goal Minimal Assistance Gait Distance 50 ft Days to Meet Goals 10 Frequency of Treatment Frequency Of Treatment Once a Day Treatment Plan Physical Therapy Treatment Plan Bed Mobility Training Transfer Training Gait Training Therapeutic Exercise Balance Retraining Post Op Education Discharge Planning Hot or Cold Pack Other Recommendations and Next Treatment bed mob, transfer training as Focus lisa Recommendations To Nursing Amount of Assist Needed Total Assistance Discharge Recommendations PT Discharge Recommendations SNF Rehab
[2018-12-16] MEDS: METHOCARBAMOL 500 MG TABLET PO (14:19)
[2018-12-16] MEDS: BACLOFEN 10 MG TABLET 5 MG TUBE ×2 (14:22→20:20)
[2018-12-16] MEDS: OXYCODONE IR 5 MG TABLET PO (14:23)
--- NOTE | 2018-12-16 15:05 | OT.IP.TRT ---
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 (12/11/18) Surgery Performed Operation Date: 12/12/18 11:45 Actual Procedures p hand assisted laprascopic sigmoid takedown of colovesical fistula with sigmoidectomy stapled colorectal anastomosis, laparoscopic splenic flexure takedown, diverting loop ileostomy(Not Applicable) - Jarett Gonzalez MD Occupational Therapy Treatment Note M2 OT-IP Current Condition Start: 12/13/18 15:38 Freq: Status: Active Protocol: Document 12/13/18 15:39 CGR (Rec: 12/13/18 16:09 CGR [email or web address]) Occupational Therapy Current Condition Current Condition Evaluation Date 12/13/18 Treatment Diagnosis s/p laparoscopic diverticular fistula resection with ostomy placement. M3 OT- IP Subjective and Pain Start: 12/13/18 15:38 Freq: Status: Active Protocol: Document 12/16/18 15:05 CGR (Rec: 12/16/18 15:05 CGR [email or web address]) OT- Subjective Occupational Therapy Visit Type Type Administrative Note Notes Attempted to see pt for OT services. Pt declines all services stating that he would prefer to wait till tomorrow. Will hold and continue to follow.
[2018-12-16] MEDS: ACETAMINOPHEN 325 MG TABLET 650 MG PO (17:51)
[2018-12-16] MEDS: DONEPEZIL 5 MG TABLET 10 MG PO (20:22)
[2018-12-17] VITALS (8 sets, daily range): BP systolic 140–150; BP diastolic 65–75; PULSE 68–77; RESP 14–18; TEMP 36.5–36.9; O2SAT 96–98; BMI 22.8
[2018-12-17] MEDS: PIPERACILLIN-TAZO 3.375 GM/50 ML FROZ.PIGGY IV ×3 (00:37→19:09)
--- NOTE | 2018-12-17 01:00 | PC.NURSE ---
Panel Machine Tender Note: 0030: Awake, resting in bed with HOB elevated. just arrived for the night. IV in place in rt upper arm, with D5 1/2NS infusing at 125cc/hr. Sharma catheter patent: pt states he feels like the catheter is leaking at insertion; no urine leakage noted, and sharma catheter is patent, with clear yellow urine in bag. NG tube is intact and secured to nose; NGT continues to low wall suction. Gastric secretions are thin, clear brown. Ileostomy stoma is beefy red; drainage in stoma bag is thin, brown. Angel drain intact and compressed. Pt turned and repositioned.
[2018-12-17] MEDS: DEXTROSE 5%-0.45% NS 1,000 ML 125 ML IV ×2 (04:25→15:52)
[2018-12-17 06:22] LABS: Add Manual Diff / Slide Review NO; Basophils Absolute Auto 100 /uL (0-100); Basophils Percent Auto 0.6 % (0-2); Eosinophils Absolute Auto 700 /uL (0-450); Eosinophils Percent Auto 4.1 % (2-4); Hematocrit 31.8 % (41-53); Hemoglobin 10.7 g/dL (13.5-17.5); Lymphocytes Absolute Auto 2400 /uL (1100-4500); Lymphocytes Percent Auto 15.1 % (25-40); Mean Corpuscular HGB Conc 33.5 % (30-36); Mean Corpuscular Hemoglobin 32.6 PG (26-34); Mean Corpuscular Volume 97.1 fL (80-100); Monocytes Absolute Auto 1600 /uL (0-900); Monocytes Percent Auto 10.2 % (3-14); Neutrophils Absolute Auto 11000 /uL (1500-7000); Platelet Count 323 X10^3/uL (150-400); Red Blood Cell Count 3.28 X10^6/uL (4.5-5.9); Red Cell Distribution Width 13.7 % (11.6-14.8); White Blood Cell Count 15.7 X10^3/uL (4.5-11.0)
[2018-12-17 06:27] LABS: BUN Creatinine Ratio 5.7 (6-22); Blood Urea Nitrogen 4 mg/dL (9-20); Calcium 8.1 mg/dL (8.4-10.2); Carbon Dioxide 31 mmol/L (22-32); Chloride 99 mmol/L (98-107); Estimated Glomerular Filt Rate > 60.0 mL/min (>60); Glucose 127 mg/dL (80-110); HEMOLYSIS 16 (0-50); Magnesium 1.6 mg/dL (1.6-2.3); Phosphorous 3.3 mg/dL (2.3-3.7); Potassium 3.8 mmol/L (3.4-5.1); Sodium 134 mmol/L (137-145)
[2018-12-17] MEDS: HEPARIN 5,000 UNIT/ML VIAL 5000 UNIT SUBCUT ×3 (07:15→21:49)
--- NOTE | 2018-12-17 11:04 | PT.IPTN ---
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 (12/11/18) Surgery Performed Operation Date: 12/12/18 11:45 Actual Procedures p hand assisted laprascopic sigmoid takedown of colovesical fistula with sigmoidectomy stapled colorectal anastomosis, laparoscopic splenic flexure takedown, diverting loop ileostomy(Not Applicable) - Jarett Gonzalez MD Physical Therapy Treatment Note M2 PT-IP Current Condition Start: 12/13/18 18:25 Freq: NEEDED Status: Active Protocol: Document 12/14/18 09:45 HH (Rec: 12/14/18 11:16 [email or web address]) Physical Therapy Current Condition Current Condition Evaluation Date 12/14/18 Treatment Diagnosis assisted laprascopic sigmoid takedown, weakness, difficulty in waling Onset Date 12/13/18 Precautions Abdominal Surgery Precautions Log Roll Lifting Restrictions Gait Belt above Incisional Area Weight Bearing Status Weight Bearing Status Weight Bear as Tolerated M3 PT-IP Subjective Start: 12/13/18 18:25 Freq: NEEDED Status: Active Protocol: Document 12/17/18 10:30 LJ (Rec: 12/17/18 11:04 LJ [id number]) Subjective Physical Therapy Visit Type Type Treatment Note Visit Start Time 10:30 Visit Stop Time 10:56 Total Visit Minutes 26 Notes Nursing wanting to change bandages on buttocks Physical Therapy Visit Comments Patient Comments willing to get out of bed Therapy Pain Assessment Pain Present Pain Present Pain Reported M4 PT-IP Mobility and Gait Start: 12/13/18 18:25 Freq: NEEDED Status: Active Protocol: Document 12/17/18 10:30 LJ (Rec: 12/17/18 11:04 LJ [id number]) PT-Bed Mobility Assessment Supine to Sit Supine to Sit Moderate Assistance 1 Person Assistance Head of Bed Elevated Bedrails Scooting Scooting to Edge of Bed Maximum Assistance Scooting Up and Down in Bed Maximum Assistance PT-Transfer Assessment Equipment Transfer Assistive Device Bed Rail Gait Belt Front Wheeled Walker Orthotic/Prosthetic Devices or Brace: No Transfers Transfer Destination Chair Transfer Technique Stand Step Pivot Transfer Ability Level of Assist Moderate Assistance Maximum Assistance 2 Person Assistance Comments Mobility Comments Pt requires ModA x2 for bed mobility except for scooing to side of bed needs maxA with drqw sheet. Sit><stand using bed rails and Rafa x2 for cues and posture. Pt slumps quickly with difficulty remaining standing. Able to weight shift and perform small marching steps with cues. Gait Assessment Gait Gait Assistance Required: Moderate Assistance 2 Person Assist Distance (Feet) 4 Comments Gait Comments Able to shuffle with ModA x2 from bed to chair. Pt feet narrow and needs cues to position feet safely for optimal maneuvering. M5 PT-IP Objective Assessments Start: 12/13/18 18:25 Freq: NEEDED Status: Active Protocol: Document 12/14/18 09:45 HH (Rec: 12/14/18 11:16 HH [id number]) Orientation Orientation/Cognition Level of Alertness Alert Orientation Name Age Birthday Month Date Year Day of Week Place Situation Language Function Ability No Deficits Noted Safety Awareness Understands Safety Issues Memory Description No Deficits Noted Comments from previous hospital admission, nursing indicated that pt has been inconsistent with answers. Gross Range of Motion Upper Extremity ROM Assessment Bilaterally Impaired Lower Extremity ROM Assessment Bilaterally Impaired Strength Upper Extremity Strength Assessment Bilaterally Impaired Lower Extremity Strength Assessment Bilaterally Impaired Comments Strength Comments 3/5 grossly Coordination Assessment Gross Coordination Gross Coordination WNL Sensation Assessment Sensation Gross Sensation WNL Light Touch Intact Proprioception (Position) Intact Muscle Tone Muscle Tone WNL Yes M6 PT-IP Treatment Start: 12/13/18 18:25 Freq: NEEDED Status: Active Protocol: Document 12/17/18 10:30 LJ (Rec: 12/17/18 11:04 LJ [id number]) Physical Therapy Treatment Other Treatments Other Treatment Performed Marching weight shifting M7 PT-IP Assessment and Plan Start: 12/13/18 18:25 Freq: NEEDED Status: Active Protocol: Document 12/17/18 10:30 LJ (Rec: 12/17/18 11:04 LJ [id number]) PT Summary Assessment and Plan Summary Impairments Pain ROM Strength Balance Bed Mobility Transfers Gait Activity Tolerance Assessment Summary Due to pt's multiple ongoing medical issues, pt had a difficult time with mobility. Still requires Max Ax2 with all bed mobility, however was able to maintain standing with Mod Ax2, repeated verbal cues for improved posture. Pt only tolerated 2' ambulation during attempted bed->chair transfer before fatiguing, nursing assisted moving bed and getting recliner down behind him. Waffle cusion placed under pt to decrease potential for more skin breakdown, pt left in recliner with call button in reach and nursing in the room. Returned 12:15-12:30 to assist nursing with transfer back to bed. Pt stand-pivot transfer Max Ax1, nursing able to roll bed up behind pt before he sat. Goals Bed Mobility Goal Minimal Assistance Transfer Goal Minimal Assistance Gait Goal Minimal Assistance Gait Distance 50 ft Days to Meet Goals 10 Frequency of Treatment Frequency Of Treatment Once a Day Treatment Plan Physical Therapy Treatment Plan Bed Mobility Training Transfer Training Gait Training Therapeutic Exercise Balance Retraining Post Op Education Discharge Planning Hot or Cold Pack Other Recommendations and Next Treatment bed mob, transfer training as Focus lisa Recommendations To Nursing Amount of Assist Needed Total Assistance Discharge Recommendations PT Discharge Recommendations SNF Rehab
--- NOTE | 2018-12-17 11:36 | P.PN_ITS ---
Subjective Date Patient Seen: 12/17/18 Time Patient Seen: 11:36 Interval history: Postoperative day 6 status post laparoscopic sigmoid colectomy with diverting ileostomy for complicated diverticular disease. Nasogastric tube remains in place with bilious output. Denies pain or chills. Hiccuping resolved. Exam Vital Signs (past 8 hours): - 12/17/18 08:00 Temperature 98.4 F Pulse Rate 68 Respiratory Rate 14 Blood Pressure 150/74 H Pulse Oximetry 97 Oxygen Delivery Method Room Air Oxygen Flow Rate 0 Narrative Exam Narrative: NGT: 800 ml/24hr bilious, Ileostomy 200 ml/24hr General adult male alert and oriented x3 no acute distress Chest nonlabored respirations. Abdomen soft incisions clean dry intact. GLENROY drain with serosanguineous output. Ileostomy viable with small amount of bilious output. Extremities warm and well perfused Objective Labs Result Diagrams: 12/17/18 06:10 12/17/18 06:10 Labs: Laboratory Results - last 24 hr 12/17/18 12/17/18 06:10 06:10 WBC 15.7 H RBC 3.28 L Hgb 10.7 L Hct 31.8 L MCV 97.1 MCH 32.6 MCHC 33.5 RDW 13.7 Plt Count 323 Neut % (Auto) 70.0 Lymph % (Auto) 15.1 L [place] % (Auto) 10.2 Eos % (Auto) 4.1 H Baso % (Auto) 0.6 Neut # (Auto) 64114 H Lymph # (Auto) 2400 [place] # (Auto) 1600 H Eos # (Auto) 700 H Baso # (Auto) 100 Sodium 134 L Potassium 3.8 Chloride 99 Carbon Dioxide 31 BUN 4 L Creatinine 0.70 Estimated GFR > 60.0 BUN/Creatinine Ratio 5.7 L Glucose 127 H Calcium 8.1 L Phosphorus 3.3 Magnesium 1.6 Assessment & Plan Post-op Postoperative Procedures Operation Date: 12/12/18 11:45 Actual Procedures Side Surgeon p hand assisted laprascopic sigmoid takedown of colovesical fistula with sigmoidectomy stapled colorectal anastomosis, laparoscopic splenic flexure takedown, diverting loop ileostomy Not Applicable Jarett Gonzalez MD Postoperative plan narrative: 83-year-old male with Parkinson's postoperative day 6 status post laparoscopic sigmoid colectomy diverting ileostomy for complicated diverticulitis. Postoperative ileus- NG tube remains with bilious output of 800 mL and the ileostomy has about 200 mL of output. The NG tube output has decreased over the past 2 days however with the minimal amount of ostomy output, chronic illness/malnutrtion and now 6 days without significant PO intake he would benefit from TPN during this period. Will place PICC begin TPN today. Continue nasogastric tube await full return of bowel function. Subcu heparin for DVT prophylaxis Parkinson's continue levodopa carbidopa crushed via NG tube. Continue physical therapy. Discussed with social work and plan is to discharge to custodial facility after acute medical issues have resolved. Quality VTE Deep Vein Thrombosis/Pulmonary Embolism Present on Admission: No
[2018-12-17] MEDS: CARBIDOPA-LEVODOPA 10/100 TABLET 1 EACH TUBE ×3 (12:01→20:38)
--- NOTE | 2018-12-17 13:08 | DI.RAD.S_ITS ---
PROCEDURE: XR CHEST FOR PICC 1V INDICATIONS: picc COMPARISON: [facility], CR, XR CHEST 1V, 12/15/2018, 11:17. FINDINGS: PICC was placed by the intravenous therapy team from the left side. Fluoroscopic spot film demonstrates tip of PICC in the area of atriocaval junction. There is a nasogastric tube with the tip in the area of the stomach. IMPRESSION: Tip of PICC lies within the area of the atriocaval junction. Dictated by: Kunal Eisenberg M.D. on 12/17/2018 at 14:19 Approved by: Kunal Eisenbreg M.D. on 12/17/2018 at 14:20
--- NOTE | 2018-12-17 13:21 | DIET.PN ---
Dietary Progress Note Assessment: 83y M postop day 6 s/p laparoscopic sigmoid colectomy c diverting ileostomy for complicated diverticulitis now presenting c ileus. NG tube yesterday relieved 2L bilious fluid. Pt good candidate for TPN r/t minimal PO intake for >1w, active ileus, PCM c BMI low for age. Caution c refeeding possibility. HT: 160cm WT: 58.5kg BMI: 22.8 (low for age) Labs: Hgb: 10.7 (L), Na+: 134 (L), K+: 3.8 (wnl), B-136 (H), Phos: 3.3 (wnl), Mg2+: 1.6 (wnl) Nutrition Diagnosis: Acute on Chronic Moderate PCM r/t postoperative day 6 status post laparoscopic sigmoid colectomy with diverting ileostomy for complicated diverticulitis c ileus aeb <75% EER for >1w, 20% wt loss in 1 yr, BMI low for age (22.8) and moderate fat and muscle losses system wide. Interventions: EERs: 1400kcal (25kcal/kg per malnutrition), 65g PRO (1.1g/kg), 1800mL fluids/d (35mL/kg) TPN via PICC line Day1: Continuous 20mL/hr Clinimix providing 490kcal (35%), 21g PRO (32%), and 480mL fluid (27%). Day 2 Goal: Continuous 30mL/hr Clinimix providing 735kcal (53%), 31g PRO (48%), and 720mL fluid (40%). Day 3 Goal: Continuous 40mL/hr Clinimix providing 980kcal (70%), 41g PRO (63%), and 960mL fluid (53%). Day 4 Goal: Continuous 40mL/hr Clinimix plus 25mL/hr 20% IVFE over 10hrs (250mL total) providing 1480kcal (105%), 41g PRO (63%), and 1,050mL fluids. Day 5 Goal: Continuous 60mL/hr Clinimix providing 1440kcal (103%), 60g PRO (93%) and 1400mL fluids (78%). Final Goal Rate 60mL/hr Clinimix 5d/week and 40mL/hr Clinimix plus 250mL 20% IVFE 2d/week to prevent fatty acid deficiency. TPN not meant for wt gain, d/t risk of refeeding, initiate @ 20mL/hr. Adequate IV fluid hydration to meet discrepency bw TPN fluids and daily needs. Daily weights, I&Os every 8h, if infusion is interrupted longer than 60 minutes, hang 10% Dextrose IV at same ordered rate. Pt at risk for refeeding syndrome, monitor BG, third spacing, and labs: Mg, K+, Phos; consider supplementing. Monitoring/Evaluations: wt, I&Os, associated labs, tpn tolerance and advancement, edema and BG, reassessing EERs increasing to 30-35kcal/kg when refeeding no longer risk.
--- NOTE | 2018-12-17 14:16 | PC.NURSE ---
Day Shift Pt denied pain however had almost continuous hiccups. NGT clamped while receiving medication, brown liquid output. Stoma with green bile output, no flatus. Angel drain with serosang output. Emptied this AM and was unable to achieve suction back on the drain. Notified MD and order to remove drain was placed. Total 150 ml out of drain this shift, covered with gauze and tegaderm. Pt had skin breakdown on his sit bones L>R. Spoke with wound care and ok to place duoderm dressings on wounds to attempt to help protect them. Pt does say they hurt and c/o pain associated with them while moving. Up to chair to help with offloading wounds, states he does feel better up in the chair. PICC line placed to start TPN. Double lumen in PADMINI. Will continue to monitor.
--- NOTE | 2018-12-17 14:16 | OT.IP.TRT ---
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 (12/11/18) Surgery Performed Operation Date: 12/12/18 11:45 Actual Procedures p hand assisted laprascopic sigmoid takedown of colovesical fistula with sigmoidectomy stapled colorectal anastomosis, laparoscopic splenic flexure takedown, diverting loop ileostomy(Not Applicable) - Jarett Gonzalez MD Occupational Therapy Treatment Note M2 OT-IP Current Condition Start: 12/13/18 15:38 Freq: Status: Active Protocol: Document 12/13/18 15:39 CGR (Rec: 12/13/18 16:09 CGR [email or web address]) Occupational Therapy Current Condition Current Condition Evaluation Date 12/13/18 Treatment Diagnosis s/p laparoscopic diverticular fistula resection with ostomy placement. M3 OT- IP Subjective and Pain Start: 12/13/18 15:38 Freq: Status: Active Protocol: Document 12/17/18 14:06 CGR (Rec: 12/17/18 14:16 CGR [email or web address]) OT- Subjective Occupational Therapy Visit Type Type Treatment Note Visit Start Time 11:57 Visit Stop Time 12:36 Total Visit Minutes 39 Notes Pt agreeable to ADLs at sink. PICC line nurse present towards end of ADLs requesting pt back to bed. Ric lift sling not available at time of transfer so pt was manually transfered back to bed and left with PICC line nurse for placement of line. OT Pain Assessment Pain When Pain Assessed At Rest Pain Present Pain Present Pain Reported Location Abdomen Scale Used Did not rate but stated pain to abdomen M4 OT- IP ADL's Start: 12/13/18 15:38 Freq: Status: Active Protocol: Document 12/17/18 14:06 CGR (Rec: 12/17/18 14:16 CGR [email or web address]) OT ADL-Grooming General Evaluation Grooming Ability Standby Assistance Areas Needing Assistance Face Washing Comments OT Grooming Comments mod a for brushing hair. OT ADL-Oral Care General Eval Oral Care Ability Standby Assistance Areas of Assistance Brushing Teeth Retrieving/Set-Up of Items Comments Oral Care Comments seated in chair at sink OT ADL-Dressing Comments OT Dressing Comments declined to change gown, states it was changed this AM M5 OT- IP IADL's Start: 12/13/18 15:38 Freq: Status: Active Protocol: Document 12/13/18 15:39 CGR (Rec: 12/13/18 16:09 CGR [email or web address]) OT-Instrumental Activities of Daily Living Deficits IADL Deficits Identified Deficits Home Safety Awareness Awareness of Need for Assistance at Home Decreased Awareness Home Safety Comments Needs further assessment. Driving Driving Comments Pt does not drive. M6 OT- IP Functional Cognition Start: 12/13/18 15:38 Freq: Status: Active Protocol: Document 12/13/18 15:39 CGR (Rec: 12/13/18 16:09 CGR [email or web address]) Cognitive Factors Limiting Selfcare Function Cognitive Ability Level of Alertness Alert Patient Orientation Name Age Birthday Month Date Year Day of Week Place Situation Attention Span Ability Capable of Focused Attention Unable to Sustain Attention Ability to Follow Commands Able to Follow One Step Commands with Increased Time Able to Follow One Step Commands with Repetition Safety Awareness Decreased Ability to Apply Precautions Problem Solving Ability Unable to Identify Errors Needs Assist to Identify Solutions Cognitive Comments Cognitive Assessment Comments Pt would benefit from formal cog assessment. OT- Vision and Hearing OT- Hearing Assessment OT- Hearing Assessment WFL OT- Vision Assessment Visual Acuity Glasses All The Time Visual Attentiveness WFL Occular Pursuits WFL Visual Convergence WFL Visual Mullins WFL M7 OT- IP Mobility and Balance Start: 12/13/18 15:38 Freq: Status: Active Protocol: Document 12/17/18 14:06 CGR (Rec: 12/17/18 14:16 CGR [email or web address]) OT- Bed Mobility Assessment Sit to Supine Sit to Supine Assist Maximum Assistance 2 Person Assistance Head of Bed Elevated Bedrails Scooting Scooting to Edge of Bed Maximum Assistance 2 Person Assistance Head of Bed Elevated Bedrails Scooting Up and Down in Bed Maximum Assistance 2 Person Assistance Head of Bed Elevated Bedrails OT-Transfer Assessment Sit to and From Stand Sit to and from Stand Maximum Assistance 1 Person Assistance Transfers Transfer Ability Maximum Assistance 1 Person Assistance Technique Transfer Destination Bed Chair Transfer Technique Squat Pivot Devices Transfer Assistive Devices Gait Belt Comments Mobility Comments Squat pivot transfer from chair to bed with max a using gait belt. Pt needed max x 2 for sit to supine d/t abdominal pain. Pt positioned for PICC line placement. OT- Balance Assessment Sitting Balance and Reactions Static Sitting Balance Ability Fair Dynamic Sitting Balance Ability Poor M8 OT- IP Objective Assessments Start: 12/13/18 15:38 Freq: Status: Active Protocol: Document 12/13/18 15:39 CGR (Rec: 12/13/18 16:09 CGR [email or web address]) OT Gross Range of Motion Upper Extremity Range of Motion ROM Impairments Not tested at eval d/t sudden onset of nausea OT Strength Comments Strength Comments Not tested at eval d/t sudden onset of nausea, however, pt demonstrates fair muscle strength with bed mobility. OT- Coordination Assessment Comments Coordination Comments Not tested at eval d/t sudden onset of nausea, but demonstrates ability to hold emesis bag and adjust glasses without difficulty. OT-Muscle Tone Assessment Muscle Tone WNL Yes OT Sensation Assessment Edema Edema Absent M9 OT- IP Assessment and Plan Start: 12/13/18 15:38 Freq: Status: Active Protocol: Document 12/17/18 14:06 CGR (Rec: 12/17/18 14:16 CGR [email or web address]) OT Summary Assessment and Plan Potential Rehabilitation Potential Good Analytic Complexity at Evaluation High Summary OT Impairments Pain Strength Balance Functional Cognition Functional Mobility Grooming Dressing Toileting Bathing Toilet Transfers Shower Transfers Progress Towards Goals Slow Progress due to Pain Assessment Summary Pt presents s/p abdominal sx. Pt with increased pain with minimal movement and requested to stop mobility upon sitting EOB stating that he couldn't stand today. Goals Grooming Goal Independent Dressing Goal Independent Toileting Goal Independent Bathing Goal Independent Toilet Transfer Goal Independent Shower Transfer Goal Standby Assistance Days to Meet Goals 9 Frequency of Treatment Frequency Of Treatment Once a Day Treatment Plan OT Treatment Plan ADL Training Functional Cognition Training Functional Mobility Therapeutic Exercises Patient/Family Education Discharge Planning Other Treatment Recommendations and Next Up to chair as able. Treatment Focus Discharge Recommendations OT Discharge Recommendations SNF Rehab Other Discharge Recommendations SNF vs home depending on progress. Pt appears to have a good set up for home but may benefit from a home health aid for bathing assist as he currently relys on his to assist.
[2018-12-17] MEDS: AA 5 %/CALCIUM/LYTES/DEXT 20 % 1,000 ML with MULTIVITAMIN 10 ML, TRACE ELEMENTS 1 ML 42.125 ML IV (16:44)
[2018-12-17] MEDS: DONEPEZIL 5 MG TABLET 10 MG PO (20:38)
[2018-12-17] MEDS: PANTOPRAZOLE 40 MG VIAL IV (20:38)
[2018-12-18] VITALS (8 sets, daily range): BP systolic 127–144; BP diastolic 58–80; PULSE 66–82; RESP 14–20; TEMP 36.3–36.8; O2SAT 93–99
[2018-12-18] MEDS: PIPERACILLIN-TAZO 3.375 GM/50 ML FROZ.PIGGY IV ×3 (01:28→18:32)
[2018-12-18] MEDS: HEPARIN 5,000 UNIT/ML VIAL 5000 UNIT SUBCUT ×3 (06:06→21:13)
[2018-12-18 07:48] LABS: Add Manual Diff / Slide Review NO; Basophils Absolute Auto 100 /uL (0-100); Basophils Percent Auto 0.3 % (0-2); Eosinophils Absolute Auto 600 /uL (0-450); Hematocrit 29.8 % (41-53); Hemoglobin 10.1 g/dL (13.5-17.5); Lymphocytes Absolute Auto 2800 /uL (1100-4500); Lymphocytes Percent Auto 14.7 % (25-40); Mean Corpuscular HGB Conc 33.9 % (30-36); Mean Corpuscular Hemoglobin 32.6 PG (26-34); Monocytes Absolute Auto 2200 /uL (0-900); Monocytes Percent Auto 11.5 % (3-14); Neutrophils Absolute Auto 13700 /uL (1500-7000); Neutrophils Percent Auto 70.5 % (50-75); Platelet Count 338 X10^3/uL (150-400); Red Cell Distribution Width 13.5 % (11.6-14.8); White Blood Cell Count 19.4 X10^3/uL (4.5-11.0)
[2018-12-18 07:52] LABS: Blood Urea Nitrogen 7 mg/dL (9-20); Calcium 8.4 mg/dL (8.4-10.2); Carbon Dioxide 32 mmol/L (22-32); Chloride 96 mmol/L (98-107); Estimated Glomerular Filt Rate > 60.0 mL/min (>60); Glucose 126 mg/dL (80-110); HEMOLYSIS < 15 (0-50); Magnesium 1.7 mg/dL (1.6-2.3); Phosphorous 3.5 mg/dL (2.3-3.7); Sodium 132 mmol/L (137-145)
--- NOTE | 2018-12-18 09:23 | CM.DPC ---
Addendum entered by Elizabeth Reilly LPN 12/18/18 10:11: Surgeon Dr. Medrano agreed that TPN was an appropriate next step. PICC was ordered and confirmed today that TPN is now in place. Original Note: DCP; continued: case again received yesterday and spoke in conference with RN Miesha, caring for pt for day shift and surgeon Dr. Medrano. Had discussed case prior in Team Rounds with boatwrightedmund Mina who was questioning consideration of TPN. Decreased intake/almost minimal for last 5 days was noted
--- NOTE | 2018-12-18 09:38 | DI.CT.S_ITS ---
PROCEDURE: CT ABDOMEN PELVIS WO CON INDICATIONS: Rule out intra abdominal abscess. Status post bowel resection yesterday. TECHNIQUE: Noncontrast 5 mm thick sections acquired from the diaphragms to the symphysis. 5 mm coronal and sagittal reformats were then performed. For radiation dose reduction, the following was used: automated exposure control, adjustment of mA and/or kV according to patient size. COMPARISON: [facility], CT, CT KIDNEY URETER BLADDER (KUB), 10/24/2018, 14:20. FINDINGS: Image quality: Excellent. ABDOMEN: Lung bases: Minimal bilateral pleural effusions and minimal bibasilar atelectasis. Heart size is normal. Solid organs: Liver is normal in size. Gallbladder contains multiple gallstones.. Pancreas is normal in contours. Spleen is normal in size. No adrenal nodules. Kidneys are normal in size, without hydronephrosis or nephrolithiasis. Peritoneum and bowel: Nasogastric tube in place. Interval sigmoid colectomy with ileostomy and possible colostomy. No abscess cavity or free fluid. No evidence of bowel obstruction. Nodes and vessels: No retroperitoneal or mesenteric adenopathy by size criteria. Aorta and inferior vena cava are normal in caliber. Miscellaneous: No ventral hernias. PELVIS: Genitourinary: Bladder wall thickness is normal. A Marshall catheter is present in the bladder. There is air in the bladder. Miscellaneous: No inguinal hernias or adenopathy. Subcutaneous emphysema over the anterior abdomen and left lateral abdomen and left anterolateral upper pelvis. There is subcutaneous emphysema present in the medial thighs, and anterior thighs. There is scrotal subcutaneous emphysema. Bones: No suspicious bony lesions. Old compression fractures of L1, L2, and L3. Remote left hip arthroplasty, remote right hip ORIF. IMPRESSION: 1. Interval sigmoid colectomy. No evidence of acute abscess. 2. Gallstones. 3. Osteoporosis with multiple old compression fractures. Dictated by: Rodrigo Nielson M.D. on 12/18/2018 at 10:40 Approved by: Rodrigo Nielson M.D. on 12/18/2018 at 10:49
--- NOTE | 2018-12-18 10:14 | CM.DPC ---
Addendum entered by Elizabeth Reilly LPN 12/18/18 15:31: Just spoke now with [facility] admissions. She has taken case to her team. States they would be happy to accept pt when stable for the snf settiing and if TPN is still needed. She said the team understood that pt would want FCC is TPN is not part of the d/c plan. She says they typically do have one or 2 open beds on the [place] [facility] unit and thus if bed is needed even in a few days she expects they will have a place for pt. Have updated Supervisor Liquid Ye[employer] Julianne. DCP team will be following. Have not at this time discussed this option with pt as need to have a clearer sense of the TPN plan for the surgical team. Addendum entered by Elizabeth Reilly LPN 12/18/18 10:41: Tub Washer's very detailed recommended TPN plan is noted in PT NOTES area: will place in hard copy/red folder in case of need for Dr. Medrano/ new to and not yet fully familiar with EMR. Have included this in fax to [place]. DCP team will be following. Original Note: DCP: continued: case discussed in Team Rounds and then with Stanton Medel Block: [phone]. Rosario was updated on the start of TPN and agreed this seemed appropriate. She noted the complexity of pt's needs and expects to auth him for FCC when stable for same. Did do some research with assist from [facility] to define snf facilities that are in the surrounding area: [place] network: ACCEPT TPN. [facility]: [facility]: admissions liaison: [phone]. fax: [phone]. [place]: yes: TPN yes. ([place] facilities that confirm NO TPN: [facility]ak[facility] Martina/[facility]Juan Richard [facility]/Dinorah Kraus [facility]/[place] It is unclear at this point how long the TPN will be needed but will have this as a possible back up snf possibility if needed. Have a vm into [facility] to discuss case in more detail and will send some brief clinical for her review.
[2018-12-18] MEDS: CARBIDOPA-LEVODOPA 10/100 TABLET 1 EACH TUBE ×3 (10:37→21:13)
[2018-12-18] MEDS: ASPIRIN 81 MG TAB PO (10:37)
--- NOTE | 2018-12-18 11:28 | OT.IP.TRT ---
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 (12/11/18) Surgery Performed Operation Date: 12/12/18 11:45 Actual Procedures p hand assisted laprascopic sigmoid takedown of colovesical fistula with sigmoidectomy stapled colorectal anastomosis, laparoscopic splenic flexure takedown, diverting loop ileostomy(Not Applicable) - Jarett Gonzalez MD Occupational Therapy Treatment Note M2 OT-IP Current Condition Start: 12/13/18 15:38 Freq: Status: Active Protocol: Document 12/13/18 15:39 CGR (Rec: 12/13/18 16:09 CGR [email or web address]) Occupational Therapy Current Condition Current Condition Evaluation Date 12/13/18 Treatment Diagnosis s/p laparoscopic diverticular fistula resection with ostomy placement. M3 OT- IP Subjective and Pain Start: 12/13/18 15:38 Freq: Status: Active Protocol: Document 12/18/18 11:28 PJM (Rec: 12/18/18 17:27 PJM [id number]) OT- Subjective Occupational Therapy Visit Type Type Treatment Note Visit Start Time 11:02 Visit Stop Time 11:28 Total Visit Minutes 26 Notes pt's observing this session Occupational Therapy Visit Comments Patient Comments I have the hiccups again. Patient/Caregiver Goals to get stronger and go home OT Pain Assessment Pain When Pain Assessed After Treatment Pain Present Pain Present Denied Pain M4 OT- IP ADL's Start: 12/13/18 15:38 Freq: Status: Active Protocol: Document 12/18/18 11:28 PJM (Rec: 12/18/18 17:27 PJM [id number]) OT [id number] Comments OT Self-Feeding Comments pt NPO with NG tube in place for ileus OT ADL-Grooming General Evaluation Grooming Ability Moderate Assistance Areas Needing Assistance Combing/Brushing Hair Face Washing Comments OT Grooming Comments needs verbal cues and assist due to NG tube in place for face washing and verbal cues and assist for thoroughness with hair brushing M5 OT- IP IADL's Start: 12/13/18 15:38 Freq: Status: Active Protocol: Document 12/13/18 15:39 CGR (Rec: 12/13/18 16:09 CGR [email or web address]) OT-Instrumental Activities of Daily Living Deficits IADL Deficits Identified Deficits Home Safety Awareness Awareness of Need for Assistance at Home Decreased Awareness Home Safety Comments Needs further assessment. Driving Driving Comments Pt does not drive. M6 OT- IP Functional Cognition Start: 12/13/18 15:38 Freq: Status: Active Protocol: Document 12/18/18 11:28 PJM (Rec: 12/18/18 17:27 [facility] [id number]) Cognitive Factors Limiting Selfcare Function Cognitive Ability Level of Alertness Alert Attention Span Ability Capable of Focused Attention Capable of Sustained Attention Ability to Follow Commands Able to Follow One Step Commands with Increased Time Safety Awareness Underestimates Need for Assistance Cognitive Comments Cognitive Assessment Comments slowed speed of processing noted M7 OT- IP Mobility and Balance Start: 12/13/18 15:38 Freq: Status: Active Protocol: Document 12/18/18 11:28 PJM (Rec: 12/18/18 17:27 [facility] [id number]) OT- Bed Mobility Assessment Rolling Level of Assistance Moderate Assistance 1 Person Assistance Head of Bed Elevated Supine to Sit Supine to Sit Assist Maximum Assistance 1 Person Assistance Scooting Scooting to Edge of Bed Maximum Assistance 1 Person Assistance OT-Transfer Assessment Sit to and From Stand Sit to and from Stand Moderate Assistance 2 Person Assistance Transfers Transfer Ability Moderate Assistance 2 Person Assistance Technique Transfer Destination Chair Transfer Technique Stand Pivot Devices Transfer Assistive Devices Gait Belt Front Wheeled Walker Comments Mobility Comments pt has difficulty with weight shift and advancing R foot OT- Gait Assessment Gait Gait Assistance Required: Moderate Assistance 2 Person Assist Distance (Feet) 5 Assistive Devices Assistive Device Gait Belt Front Wheeled Walker Comments Gait Ability Comments chair follow OT- Balance Assessment Sitting Balance and Reactions Static Sitting Balance Ability Fair Dynamic Sitting Balance Ability Poor Standing Balance and Reactions Static Standing Balance Ability Fair M9 OT- IP Assessment and Plan Start: 12/13/18 15:38 Freq: Status: Active Protocol: Document 12/18/18 11:28 PJ (Rec: 12/18/18 17:27 [facility] [id number]) OT Summary Assessment and Plan Summary OT Impairments Strength Balance Tone Functional Cognition Functional Mobility Self-Feeding Grooming Dressing Toileting Bathing Toilet Transfers Shower Transfers Progress Towards Goals Slow Progress due to Medical Issues Slow Progress due to Activity Tolerance Assessment Summary Pt seen for partial cotx with P.T. for mobility as described above. Pt able to ambulate very short distance for first time today since surgery today , but still has difficulty with weight shift and advancing R foot. NG tube still in place for post op ileus. Narrow base of support noted. Pt needs mod to total assist with all self care at present. Recommend SNF for further rehab services when medically stable due to current high care needs. Goals Grooming Goal Standby Assistance Dressing Goal Minimal Assistance Toileting Goal Moderate Assistance Bathing Goal Moderate Assistance Toilet Transfer Goal Moderate Assistance OT-Other Goals Dressing goal is for upper body only. Toilet transfer goal is to bedside commode. Days to Meet Goals 8 Frequency of Treatment Frequency Of Treatment Once a Day Treatment Plan OT Treatment Plan ADL Training Functional Cognition Training Functional Mobility Therapeutic Exercises Patient/Family Education Discharge Planning Discharge Recommendations OT Discharge Recommendations SNF Rehab Home Equipment Needs to be determined pending progress in next rehab setting
--- NOTE | 2018-12-18 11:40 | PT.IPTN ---
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 (12/11/18) Surgery Performed Operation Date: 12/12/18 11:45 Actual Procedures p hand assisted laprascopic sigmoid takedown of colovesical fistula with sigmoidectomy stapled colorectal anastomosis, laparoscopic splenic flexure takedown, diverting loop ileostomy(Not Applicable) - Jarett Gonzalez MD Physical Therapy Treatment Note M2 PT-IP Current Condition Start: 12/13/18 18:25 Freq: NEEDED Status: Active Protocol: Document 12/14/18 09:45 HH (Rec: 12/14/18 11:16 [email or web address]) Physical Therapy Current Condition Current Condition Evaluation Date 12/14/18 Treatment Diagnosis assisted laprascopic sigmoid takedown, weakness, difficulty in waling Onset Date 12/13/18 Precautions Abdominal Surgery Precautions Log Roll Lifting Restrictions Gait Belt above Incisional Area Weight Bearing Status Weight Bearing Status Weight Bear as Tolerated M3 PT-IP Subjective Start: 12/13/18 18:25 Freq: NEEDED Status: Active Protocol: Document 12/18/18 11:00 CLB (Rec: 12/18/18 11:40 CLB [id number]) Subjective Physical Therapy Visit Type Type Treatment Note Visit Start Time 11:00 Visit Stop Time 11:23 Total Visit Minutes 23 Physical Therapy Visit Comments Patient Comments willing to get out of bed and asking to walk a little. Therapy Pain Assessment Pain Present Pain Present Pain Reported M4 PT-IP Mobility and Gait Start: 12/13/18 18:25 Freq: NEEDED Status: Active Protocol: Document 12/18/18 11:00 CLB (Rec: 12/18/18 11:40 CLB [id number]) PT-Bed Mobility Assessment Supine to Sit Supine to Sit Moderate Assistance 1 Person Assistance Head of Bed Elevated Scooting Scooting to Edge of Bed Maximum Assistance PT-Transfer Assessment Equipment Transfer Assistive Device Gait Belt Front Wheeled Walker Orthotic/Prosthetic Devices or Brace: No Transfers Transfer Destination Chair Transfer Technique Stand Step Pivot Transfer Ability Level of Assist Moderate Assistance 2 Person Assistance Comments Mobility Comments Pt required cues for rolling to right to protect abdomen. Pt with sore on bottom that causes pain when scooting in bed so pt is assisted to EOB with draw sheet. Gait Assessment Gait Gait Assistance Required: Moderate Assistance 2 Person Assist Distance (Feet) 5 Assistive Devices Assistive Device Gait Belt Front Wheeled Walker Gait Deviations General Gait Pattern Decreased Stride Length Decreased Feet Clearance Flexed Trunk Lateral Trunk Lean Narrow Based Gait Comments Gait Comments Pt took steps to chair with difficulty advancing RLE. Once pt sat a few minutes he was able to stand and ambulate with chair follow ~5ft with Mod A x2 and cues to focus on advancing RLE which pt was able to do until fatigued. Stair Climbing Assessment Comments Stair Climbing Comments did not assess M5 PT-IP Objective Assessments Start: 12/13/18 18:25 Freq: NEEDED Status: Active Protocol: Document 12/14/18 09:45 HH (Rec: 12/14/18 11:16 HH [id number]) Orientation Orientation/Cognition Level of Alertness Alert Orientation Name Age Birthday Month Date Year Day of Week Place Situation Language Function Ability No Deficits Noted Safety Awareness Understands Safety Issues Memory Description No Deficits Noted Comments from previous hospital admission, nursing indicated that pt has been inconsistent with answers. Gross Range of Motion Upper Extremity ROM Assessment Bilaterally Impaired Lower Extremity ROM Assessment Bilaterally Impaired Strength Upper Extremity Strength Assessment Bilaterally Impaired Lower Extremity Strength Assessment Bilaterally Impaired Comments Strength Comments 3/5 grossly Coordination Assessment Gross Coordination Gross Coordination WNL Sensation Assessment Sensation Gross Sensation WNL Light Touch Intact Proprioception (Position) Intact Muscle Tone Muscle Tone WNL Yes M6 PT-IP Treatment Start: 12/13/18 18:25 Freq: NEEDED Status: Active Protocol: Document 12/17/18 10:30 LJ (Rec: 12/17/18 11:04 LJ [id number]) Physical Therapy Treatment Other Treatments Other Treatment Performed Marching weight shifting M7 PT-IP Assessment and Plan Start: 12/13/18 18:25 Freq: NEEDED Status: Active Protocol: Document 12/18/18 11:00 CLB (Rec: 12/18/18 11:40 CLB [id number]) PT Summary Assessment and Plan Summary Impairments Pain ROM Strength Balance Bed Mobility Transfers Gait Activity Tolerance Assessment Summary Pt improving with bed mobility requiring Mod A supine to sit then Max A to EOB with use of draw sheet. Pt able to ambulate ~5ft Mod A x2 with chair follow. Goals Bed Mobility Goal Minimal Assistance Transfer Goal Minimal Assistance Gait Goal Minimal Assistance Gait Distance 50 ft Days to Meet Goals 10 Frequency of Treatment Frequency Of Treatment Once a Day Treatment Plan Physical Therapy Treatment Plan Bed Mobility Training Transfer Training Gait Training Therapeutic Exercise Balance Retraining Post Op Education Discharge Planning Hot or Cold Pack Other Recommendations and Next Treatment bed mob, transfer training as Focus lisa
--- NOTE | 2018-12-18 14:43 | PM.PNPO.1 ---
Subjective Date Patient Seen: 12/18/18 Time Patient Seen: 09:00 Interval history: 83-year-old male postoperative day 7 status post laparoscopic sigmoid colectomy with diverting ileostomy for complicated diverticular disease. Began TPN yesterday for his prolonged ileus, NG tube remains, ileostomy with minimal output. Exam Vital Signs (past 8 hours): - 12/18/18 09:00 12/18/18 11:55 Temperature 98.3 F 98.1 F Pulse Rate 71 75 Respiratory Rate 14 14 Blood Pressure 144/58 H 128/72 Pulse Oximetry 97 99 Oxygen Delivery Method Room Air Oxygen Flow Rate 0 Narrative Exam Narrative: General adult male alert and oriented no acute distress Chest nonlabored respirations Abdomen ileostomy with 475 mils of output over the past 24 hours period less distended than yesterday. The nasogastric tube remains in place with 1700 mL of feculent appearing material. Extremities warm well perfused Objective Labs Result Diagrams: 12/18/18 07:30 12/18/18 07:30 Labs: Laboratory Results - last 24 hr 12/18/18 12/18/18 07:30 07:30 WBC 19.4 H RBC 3.10 L Hgb 10.1 L Hct 29.8 L MCV 96.0 MCH 32.6 MCHC 33.9 RDW 13.5 Plt Count 338 Neut % (Auto) 70.5 Lymph % (Auto) 14.7 L [place] % (Auto) 11.5 Eos % (Auto) 3.0 Baso % (Auto) 0.3 Neut # (Auto) 44656 H Lymph # (Auto) 2800 [place] # (Auto) 2200 H Eos # (Auto) 600 H Baso # (Auto) 100 Sodium 132 L Potassium 3.0 L Chloride 96 L Carbon Dioxide 32 BUN 7 L Creatinine 0.70 Estimated GFR > 60.0 BUN/Creatinine Ratio 10.0 Glucose 126 H Calcium 8.4 Phosphorus 3.5 Magnesium 1.7 Assessment & Plan Post-op (1) S/P laparoscopic-assisted sigmoidectomy: Postoperative Procedures Operation Date: 12/12/18 11:45 Actual Procedures Side Surgeon p hand assisted laprascopic sigmoid takedown of colovesical fistula with sigmoidectomy stapled colorectal anastomosis, laparoscopic splenic flexure takedown, diverting loop ileostomy Not Applicable Jarett Gonzalez MD Postoperative plan narrative: 83-year-old male postoperative day 7 status post laparoscopic sigmoid colectomy with diverting ileostomy for complicated diverticular disease. Improving postoperative ileus as the ileostomy output is increased from past 24hrs. NG tube remains with high bilious output and bilious output. Postoperative ileus. Continue nasogastric tube until its output decreases and complete return of bowel function. NPO. Continue TPN for malnutrition. Leukocytosis white blood cell count 19,000 despite Zosyn. Concerned for an intra-abdominal abscess given the leukocytosis and the associated postoperative ileus. Will obtain a CT abdomen pelvis today with IV contrast. VT prophylaxis continue subcutaneous heparin Time Spent With Patient less than 15 minutes Quality VTE Deep Vein Thrombosis/Pulmonary Embolism Present on Admission: No
[2018-12-18] MEDS: POTASSIUM CHLORIDE 60 MEQ in SODIUM CHLORIDE 0.9% 500 ML 88.333 ML IV (15:42)
--- NOTE | 2018-12-18 16:08 | PC.NURSE ---
Addendum entered by Peggy Bermudez R.N. 12/18/18 16:40: waffle cushion in room, used when pt sitting up in chair, other slater repositioned in bed from side to side approx every 2 hours with 2PA, pt does slide down in bed. HOB elevated at 30 degrees at all times. Addendum entered by Peggy Bermudez R.N. 12/18/18 16:35: NGT clamped from 1010 to 1155 from pt leaving unit to go to CT scan and for medication administration. Pt clamped NGT again at 1455 for medication administration. NGT re-taped at nose, This AM at 0830, NGT marked with black marker at bottom of tape on tubing by this clinical writer, no movement to NGT throughout shift. Evening RN aware to unclamp tube around 1555. Original Note: Day Shift- Spoke with Dr. Medrano at 1600, clarified NGT to be low continuous suction, okay to be clamped for medications or imaging. Aware that NGT was on LIWS throughout day shift. Made aware that pt's own med of Prozac 5mg is non-formulary and family unable to get as cannot get back to [place] at this time. Called pharmacy and order changed to 10mg every other day, okay to open capsule and give through NGT. Coccyx/inner buttock dressing removed this AM, serous leaking from red and excoriated wound. Duoderm presently on and rolled. Duoderm removed, area cleansed with NS, tender to touch, 4X4 allevy dressing applied. TPN infusing well to PADMINI PICC double lumen. No other IVF infusing at this time. Night RN stated evening shift prior had spoke with and to stop IVF except TPN. Evening shift to clarify. Pt OOB to chair with 2PA using gait belt and walker, pt very weak, unable to lift feet off floor. Does slight movement shuffle. Tires easily. Pivot transfer to chair. Pt's Maira in/out of room throughout shift.
[2018-12-18] MEDS: AA 5 %/CALCIUM/LYTES/DEXT 20 % 1,000 ML with MULTIVITAMIN 10 ML, TRACE ELEMENTS 1 ML 42.125 ML IV (16:23)
[2018-12-18] MEDS: FLUoxetine 10 MG CAPSULE PO (16:23)
--- NOTE | 2018-12-18 18:27 | PC.NURSE ---
Ostomy Nurse Consult Note Mr. Arriola looks much better than he did on Monday. He states he also feels much better. His is at his bedside asleep but awoke soon after my arrival. Mr. Arriola ileostomy is functioning draining green liquid effluent. I removed his appliance. His stoma measures 25cm, it's less edematous, pink, and moist. The billy-stomal skin is intact. The stoma is in a crease at the 3 and 9:00 position. I use stoma paste to fill in these areas and placed a Filmzuatec Moldable 45mm wafer with a clear, non-filtered pouch. I explained what I was doing to and Mrs. Valles. Mrs. Arriola had not read over the materials I left last week as she was busy tending things at home. I will continue to teach them how to care for his ileostomy. Mr. Valles's NG Tube is intact, draining clear green effluent. His sharma is also intact. Kaur his nurse states that he is developing a PI on his buttocks and there is a border foam in place. She will ask for a wound consult tomorrow. I will return in the next few days to continue with ostomy teaching.
[2018-12-18] MEDS: DEXTROSE 5%-0.45% NS 1,000 ML 75 ML IV (18:33)
[2018-12-18] MEDS: PANTOPRAZOLE 40 MG VIAL IV (21:12)
[2018-12-18] MEDS: DONEPEZIL 5 MG TABLET 10 MG PO (21:13)
--- NOTE | 2018-12-18 22:30 | PC.NURSE ---
Evening note: Bret resting in bed, oriented to situation, sometimes forgetful to events. Denies pain or nausea, NG to low suction, output of 200 ml greenish brown liquid. Tube clamped for 45 after med administration. Pt having intermittent hiccups, baclofen given to help give patient relief, unsure if it worked as patient continued to have hiccups. Rachael RN here from [facility] to change patient's ileostomy appliance. I did notify her of patient's pressure area to buttocks, I told her that we need to obtain a Dr order for wound care, as it is after hours will pass on this info in report tonight. Allevyn to buttocks remains CDI tonight. Gauze drsg over dc'd vanessa drain was saturated with thin watery yellow serous fluid. 4x4 drsg was changed x 2 tonight, once linen soiled beneath him, full linen change done. Small open puncture site to back of left upper arm leaking scant amt of sanguineous drainage, appears as possibly a previous heparin injection site. Site cleaned & covered with 2x2 gauze paper tape. Gown changed. IVF rate clarified with Dr Medrano earlier this evening. TPN infusing as ordered. NG tubing set, cannister & syringe/plunger changed & dated per protocol. spending night on window bench.
[2018-12-19] VITALS (8 sets, daily range): BP systolic 112–135; BP diastolic 45–62; PULSE 67–87; RESP 18–20; TEMP 36.5–37.1; O2SAT 96–100
--- NOTE | 2018-12-19 01:34 | DI.RAD.S_ITS ---
PROCEDURE: XR CHEST 1V INDICATIONS: NG tube placement TECHNIQUE: One view of the chest was acquired. COMPARISON: [facility], CR, XR CHEST FOR PICC 1V, 12/17/2018, 13:12. [facility], CR, XR CHEST 1V, 12/15/2018, 11:17. FINDINGS: Surgical changes and devices: Esophagogastric tube appears in normal position. PICC line also is present, extending inferiorly to the area of the atrial caval junction. Lungs and pleura: Lungs are abnormal with mild alveolar crowding and possible pneumonia at the left mid and lower lung but the patient is tilted leftward which would predispose to atelectasis also developing in that area.. No pleural effusions or pneumothorax. Mediastinum: Mediastinal contours appear normal. Heart size is normal. Bones and chest wall: No suspicious bony lesions. Overlying soft tissues appear unremarkable. IMPRESSION: Normal esophagogastric tube positioning, mild atelectasis or pneumonia left mid and lower lung in the setting of patient tilt significantly leftward which increases the likelihood of atelectasis producing this appearance. Dictated by: Reid Barry M.D. on 12/19/2018 at 8:34 Approved by: Reid Barry M.D. on 12/19/2018 at 8:35
[2018-12-19] MEDS: PIPERACILLIN-TAZO 3.375 GM/50 ML FROZ.PIGGY IV (03:07)
--- NOTE | 2018-12-19 04:05 | PC.NURSE ---
PT accidentally self removed NG tube during shift change w/ evening nurse. This nurse placed new 16fr NG tube in left nare. Pt tolerated well. Xray ordered for placement verification. NG tube ends in the stomach per xray. Connected NG tube to low continuous suction per order. Pt resting comfortably at this time.
[2018-12-19] MEDS: HEPARIN 5,000 UNIT/ML VIAL 5000 UNIT SUBCUT ×3 (06:17→21:46)
--- NOTE | 2018-12-19 07:48 | PM.PNPO.1 ---
Subjective Date Patient Seen: 12/19/18 Time Patient Seen: 07:48 Interval history: No acute overnight events. No abdominal pain. NG tube fell out overnight was replaced. No fever chills nausea. Exam Vital Signs (past 8 hours): - 12/19/18 00:07 12/19/18 00:52 Temperature 98.2 F 98.0 F Pulse Rate 67 69 Respiratory Rate 18 19 Blood Pressure 123/55 L 134/58 L Pulse Oximetry 97 98 Oxygen Delivery Method Room Air Oxygen Flow Rate 0 Narrative Exam Narrative: General adult male no acute distress there is a gastric tube in place with gastric content from the NG tube 400 mL with past 24 hours period chest Chest nonlabored respirations Abdomen soft nondistended ileostomy viable output 1200 mL over 24 hours of intestinal content. Extremities warm well perfused Objective Labs Result Diagrams: 12/18/18 07:30 12/18/18 07:30 Labs: Laboratory Results - last 24 hr 12/18/18 12/18/18 07:30 07:30 WBC 19.4 H RBC 3.10 L Hgb 10.1 L Hct 29.8 L MCV 96.0 MCH 32.6 MCHC 33.9 RDW 13.5 Plt Count 338 Neut % (Auto) 70.5 Lymph % (Auto) 14.7 L [place] % (Auto) 11.5 Eos % (Auto) 3.0 Baso % (Auto) 0.3 Neut # (Auto) 61240 H Lymph # (Auto) 2800 [place] # (Auto) 2200 H Eos # (Auto) 600 H Baso # (Auto) 100 Sodium 132 L Potassium 3.0 L Chloride 96 L Carbon Dioxide 32 BUN 7 L Creatinine 0.70 Estimated GFR > 60.0 BUN/Creatinine Ratio 10.0 Glucose 126 H Calcium 8.4 Phosphorus 3.5 Magnesium 1.7 Assessment & Plan Post-op Postoperative Procedures Operation Date: 12/12/18 11:45 Actual Procedures Side Surgeon p hand assisted laprascopic sigmoid takedown of colovesical fistula with sigmoidectomy stapled colorectal anastomosis, laparoscopic splenic flexure takedown, diverting loop ileostomy Not Applicable Jarett Gonzalez MD Postoperative plan narrative: 83-year-old male postoperative day 8 status post laparoscopic sigmoid colectomy with diverting ileostomy for complicated diverticular disease. Postoperative ileus has resolved. Remove nasogastric tube. Start clear liquid diet. Continue TPN until patient is taking adequate p.o. intake. DC Zosyn. Quality VTE Deep Vein Thrombosis/Pulmonary Embolism Present on Admission: No
[2018-12-19] MEDS: ASPIRIN 81 MG TAB PO (09:02)
[2018-12-19] MEDS: CARBIDOPA-LEVODOPA 10/100 TABLET 1 EACH TUBE ×3 (09:02→21:45)
--- NOTE | 2018-12-19 09:52 | OT.IP.TRT ---
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 (12/11/18) Surgery Performed Operation Date: 12/12/18 11:45 Actual Procedures p hand assisted laprascopic sigmoid takedown of colovesical fistula with sigmoidectomy stapled colorectal anastomosis, laparoscopic splenic flexure takedown, diverting loop ileostomy(Not Applicable) - Jarett Gonzaelz MD Occupational Therapy Treatment Note M2 OT-IP Current Condition Start: 12/13/18 15:38 Freq: Status: Active Protocol: Document 12/13/18 15:39 CGR (Rec: 12/13/18 16:09 CGR [email or web address]) Occupational Therapy Current Condition Current Condition Evaluation Date 12/13/18 Treatment Diagnosis s/p laparoscopic diverticular fistula resection with ostomy placement. M3 OT- IP Subjective and Pain Start: 12/13/18 15:38 Freq: Status: Active Protocol: Document 12/19/18 09:31 CCC (Rec: 12/19/18 09:51 [facility] [email or web address]) OT- Subjective Occupational Therapy Visit Type Type Treatment Note Visit Start Time 08:55 Visit Stop Time 09:25 Total Visit Minutes 30 Occupational Therapy Visit Comments Patient Comments Pt agreeable to get up. Pt states this morning first time able to eat some solid foods. OT Pain Assessment Pain When Pain Assessed At Rest Pain Present Pain Present Denied Pain M4 OT- IP ADL's Start: 12/13/18 15:38 Freq: Status: Active Protocol: Document 12/19/18 09:31 CCC (Rec: 12/19/18 09:51 CCC [email or web address]) OT ADL-Grooming General Evaluation Areas Needing Assistance Retrieving/Set-up of Grooming Items Comments OT Grooming Comments Pt able to wash his face after set-up of wash cloth. OT ADL-Toileting Comments OT Toileting Comments Pt has catheter in. M5 OT- IP IADL's Start: 12/13/18 15:38 Freq: Status: Active Protocol: Document 12/13/18 15:39 CGR (Rec: 12/13/18 16:09 CGR [email or web address]) OT-Instrumental Activities of Daily Living Deficits IADL Deficits Identified Deficits Home Safety Awareness Awareness of Need for Assistance at Home Decreased Awareness Home Safety Comments Needs further assessment. Driving Driving Comments Pt does not drive. M6 OT- IP Functional Cognition Start: 12/13/18 15:38 Freq: Status: Active Protocol: Document 12/19/18 09:31 [facility] (Rec: 12/19/18 09:51 [facility] [email or web address]) Cognitive Factors Limiting Selfcare Function Cognitive Ability Level of Alertness Alert Attention Span Ability Capable of Focused Attention Capable of Sustained Attention Ability to Follow Commands Able to Follow One Step Commands with Increased Time Safety Awareness Underestimates Need for Assistance Cognitive Comments Cognitive Assessment Comments Increased time to process information. M7 OT- IP Mobility and Balance Start: 12/13/18 15:38 Freq: Status: Active Protocol: Document 12/19/18 09:31 [facility] (Rec: 12/19/18 09:51 [facility] [email or web address]) OT- Bed Mobility Assessment Sit to Supine Sit to Supine Assist Moderate Assistance 2 Person Assistance Scooting Scooting to Edge of Bed Minimal Assistance OT-Transfer Assessment Sit to and From Stand Sit to and from Stand Moderate Assistance 2 Person Assistance Transfers Transfer Ability Moderate Assistance/MAX A 2 Person Assistance Technique Transfer Destination Bed Chair Transfer Technique Stand Pivot Devices Transfer Assistive Devices Gait Belt Front Wheeled Walker Comments Mobility Comments Pt needing assist for weight shifting, assist for move FWW, vc to keep his feet apart, and assist for balance. OT- Gait Assessment Gait Gait Assistance Required: Moderate Assistance Maximum Assistance 2 Person Assist Assistive Devices Assistive Device Gait Belt Front Wheeled Walker OT- Balance Assessment Sitting Balance and Reactions Static Sitting Balance Ability Poor Dynamic Sitting Balance Ability Poor Standing Balance and Reactions Static Standing Balance Ability Poor Dynamic Standing Balance Ability Poor Comments Other Balance Tests/Deviations/Treatment Pt heavily leans to the left : during sitting balance. M8 OT- IP Objective Assessments Start: 12/13/18 15:38 Freq: Status: Active Protocol: Document 12/13/18 15:39 CGR (Rec: 12/13/18 16:09 CGR [email or web address]) OT Gross Range of Motion Upper Extremity Range of Motion ROM Impairments Not tested at eval d/t sudden onset of nausea OT Strength Comments Strength Comments Not tested at eval d/t sudden onset of nausea, however, pt demonstrates fair muscle strength with bed mobility. OT- Coordination Assessment Comments Coordination Comments Not tested at eval d/t sudden onset of nausea, but demonstrates ability to hold emesis bag and adjust glasses without difficulty. OT-Muscle Tone Assessment Muscle Tone WNL Yes OT Sensation Assessment Edema Edema Absent M9 OT- IP Assessment and Plan Start: 12/13/18 15:38 Freq: Status: Active Protocol: Document 12/19/18 09:31 [facility] (Rec: 12/19/18 09:51 [facility] [email or web address]) OT Summary Assessment and Plan Summary OT Impairments Strength Balance Tone Functional Cognition Functional Mobility Self-Feeding Grooming Dressing Toileting Bathing Toilet Transfers Shower Transfers Progress Towards Goals Slow Progress due to Medical Issues Slow Progress due to Activity Tolerance Assessment Summary Pt able to tolerate walking with FWW today and starting to intiate doing ADL's. Pt will continue to benefit from skilled rehab. Goals Grooming Goal Standby Assistance Dressing Goal Minimal Assistance Toileting Goal Moderate Assistance Bathing Goal Moderate Assistance Toilet Transfer Goal Moderate Assistance OT-Other Goals Dressing goal is for upper body only. Toilet transfer goal is to bedside commode. Days to Meet Goals 7 Frequency of Treatment Frequency Of Treatment Once a Day Treatment Plan OT Treatment Plan ADL Training Functional Cognition Training Functional Mobility Therapeutic Exercises Patient/Family Education Discharge Planning Discharge Recommendations OT Discharge Recommendations SNF Rehab
--- NOTE | 2018-12-19 10:01 | PT.IPTN ---
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 (12/11/18) Surgery Performed Operation Date: 12/12/18 11:45 Actual Procedures p hand assisted laprascopic sigmoid takedown of colovesical fistula with sigmoidectomy stapled colorectal anastomosis, laparoscopic splenic flexure takedown, diverting loop ileostomy(Not Applicable) - Jarett Gonzalez MD Physical Therapy Treatment Note M2 PT-IP Current Condition Start: 12/13/18 18:25 Freq: NEEDED Status: Active Protocol: Document 12/14/18 09:45 HH (Rec: 12/14/18 11:16 [email or web address]) Physical Therapy Current Condition Current Condition Evaluation Date 12/14/18 Treatment Diagnosis assisted laprascopic sigmoid takedown, weakness, difficulty in waling Onset Date 12/13/18 Precautions Abdominal Surgery Precautions Log Roll Lifting Restrictions Gait Belt above Incisional Area Weight Bearing Status Weight Bearing Status Weight Bear as Tolerated M3 PT-IP Subjective Start: 12/13/18 18:25 Freq: NEEDED Status: Active Protocol: Document 12/19/18 08:55 HH (Rec: 12/19/18 10:00 [email or web address]) Subjective Physical Therapy Visit Type Type Treatment Note Visit Start Time 08:55 Visit Stop Time 09:25 Total Visit Minutes 30 Notes Nursing wanting to change bandages on buttocks. Co-tx with OT Physical Therapy Visit Comments Patient Comments willing to get out of bed and asking to walk a little. Therapy Pain Assessment Pain Present Pain Present Pain Reported M4 PT-IP Mobility and Gait Start: 12/13/18 18:25 Freq: NEEDED Status: Active Protocol: Document 12/19/18 08:55 HH (Rec: 12/19/18 10:00 [email or web address]) PT-Bed Mobility Assessment Supine to Sit Supine to Sit Moderate Assistance 1 Person Assistance Head of Bed Elevated Scooting Scooting to Edge of Bed Minimal Assistance PT-Transfer Assessment Sit to and From Stand Sit to and from Stand Moderate Assistance 2 Person Assistance Use of Upper Extremities Equipment Transfer Assistive Device Gait Belt Front Wheeled Walker Orthotic/Prosthetic Devices or Brace: No Transfers Transfer Destination Bed Chair Transfer Technique Stand Step Pivot Transfer Ability Level of Assist Moderate Assistance 2 Person Assistance Comments Mobility Comments Pt performed log roll then supine to sit from elevated HOB at 20 degrees today. He was also able to scoot to EOB with min A by using B UEs. He then stood up with 2pa and needed constant cues to facilitate upright posture. Gait Assessment Gait Gait Assistance Required: Moderate Assistance 2 Person Assist Distance (Feet) 6 Assistive Devices Assistive Device Gait Belt Front Wheeled Walker Gait Deviations General Gait Pattern Decreased Stride Length Decreased Feet Clearance Flexed Trunk Lateral Trunk Lean Narrow Based Gait Factors Limiting Gait Function Factors Limiting Gait Function Decreased Activity Tolerance Decreased Strength Limited Range of Motion Pain Poor Balance Poor Safety Awareness Comments Gait Comments Pt took small steps and required constant cues for walker management and upright posture. He showed increased trunk lean compared to his last admission but denied of any discomfort. He did c/o fatigue after amb with 6 ft. Assisted pt to sit down on bedside chair with call light within reach. Stair Climbing Assessment Comments Stair Climbing Comments did not assess M5 PT-IP Objective Assessments Start: 12/13/18 18:25 Freq: NEEDED Status: Active Protocol: Document 12/14/18 09:45 HH (Rec: 12/14/18 11:16 [email or web address]) Orientation Orientation/Cognition Level of Alertness Alert Orientation Name Age Birthday Month Date Year Day of Week Place Situation Language Function Ability No Deficits Noted Safety Awareness Understands Safety Issues Memory Description No Deficits Noted Comments from previous hospital admission, nursing indicated that pt has been inconsistent with answers. Gross Range of Motion Upper Extremity ROM Assessment Bilaterally Impaired Lower Extremity ROM Assessment Bilaterally Impaired Strength Upper Extremity Strength Assessment Bilaterally Impaired Lower Extremity Strength Assessment Bilaterally Impaired Comments Strength Comments 3/5 grossly Coordination Assessment Gross Coordination Gross Coordination WNL Sensation Assessment Sensation Gross Sensation WNL Light Touch Intact Proprioception (Position) Intact Muscle Tone Muscle Tone WNL Yes M6 PT-IP Treatment Start: 12/13/18 18:25 Freq: NEEDED Status: Active Protocol: Document 12/17/18 10:30 LJ (Rec: 12/17/18 11:04 LJ [id number]) Physical Therapy Treatment Other Treatments Other Treatment Performed Marching weight shifting M7 PT-IP Assessment and Plan Start: 12/13/18 18:25 Freq: NEEDED Status: Active Protocol: Document 12/19/18 08:55 HH (Rec: 12/19/18 10:00 [email or web address]) PT Summary Assessment and Plan Summary Impairments Pain ROM Strength Balance Bed Mobility Transfers Gait Activity Tolerance Assessment Summary Improved bed mob and transfer ability today with min to mod A. Pt cont to be easily fatigue with mobility due to his multiple ongoing medical issues. Recommended Nursing staff to assist pt for transfers only. SNF will be an ideal option to improve pt's functional mobility and strength Goals Bed Mobility Goal Minimal Assistance Transfer Goal Minimal Assistance Gait Goal Minimal Assistance Gait Distance 50 ft Days to Meet Goals 10 Frequency of Treatment Frequency Of Treatment Once a Day Treatment Plan Physical Therapy Treatment Plan Bed Mobility Training Transfer Training Gait Training Therapeutic Exercise Balance Retraining Post Op Education Discharge Planning Hot or Cold Pack Other Recommendations and Next Treatment bed mob, transfer training as Focus lisa Recommendations To Nursing Amount of Assist Needed 2 Person Assist Discharge Recommendations PT Discharge Recommendations SNF Rehab
[2018-12-19] MEDS: BACLOFEN 10 MG TABLET PO (10:38)
--- NOTE | 2018-12-19 11:01 | PC.NURSE ---
Addendum entered by Sumi Diaz R.N. 12/19/18 15:06: GI - pt states he felt onset nausea after eating a yogurt and some ice cream, given 4mg iv zofran, advised pt to slowly resume his diet and plan for just soup tonight for dinner. Original Note: AM NOTE - pt is alert, in this am and dc'd the ng tube, small qty lt brown fluid in cannister and tubing, dark brown fluid in ileostomy bag with some air, dsg with serous drainage l torso, removed, cleaned and replaced, sharma with clear yellow urine, hr reg, ra 96%, later am PT/OT in and pt assisted to dangle, stood and took few steps to chair, dsg buttock cdi, started with sips clear liq, did have periodic eisode hiccups and given baclofen this am.
--- NOTE | 2018-12-19 11:26 | CM.DPC ---
Addendum entered by Aditi Acosta R.N. 12/19/18 11:52: Went ahead and called Dexter in admissions at [facility]. Confirmed that they have availability, but would need 24 hour notice so they can order the TPN. Let her know that this behavioral health case manager would attempt to talk to surgeon in the morning for a plan regarding how long that patient may be on this. Will update Emmy when more is noted. Original Note: DCP Cont: Checked in on patient and , Maira. Discussed possibility of going to [facility], if he needs to continue with TPN for a while. Patient and are really wanting him to go to [facility], but let them know that they can't take him with TPN. Noticed that patient is now on clear liquids. According to surgeon's note, his TPN can be discontinued if it is determined that patient is getting adequate nutrition. Meal Cooker, Keeley, has also been working on the case. Patient stated, I really wish I could have a hamburger. Bed at [facility] for TPN is still available. P: DCP to continue to follow. Will attempt to check in with surgeon tomorrow regarding plan, and length of TPN. Aditi Acosta RN/Lead Die Molder
[2018-12-19] MEDS: DEXTROSE 5%-0.45% NS 1,000 ML 75 ML IV (11:53)
[2018-12-19 12:10] LABS: BUN Creatinine Ratio 17.1 (6-22); Blood Urea Nitrogen 12 mg/dL (9-20); Calcium 8.5 mg/dL (8.4-10.2); Carbon Dioxide 27 mmol/L (22-32); Chloride 99 mmol/L (98-107); Estimated Glomerular Filt Rate > 60.0 mL/min (>60); Glucose 114 mg/dL (80-110); HEMOLYSIS < 15 (0-50); Magnesium 1.8 mg/dL (1.6-2.3); Phosphorous 3.1 mg/dL (2.3-3.7); Potassium 3.7 mmol/L (3.4-5.1); Sodium 134 mmol/L (137-145)
--- NOTE | 2018-12-19 12:17 | DIET.PN ---
Dietary Progress Note Assessment: 83y M postop day 8 s/p laparoscopic sigmoid colectomy c diverting ileostomy for complicated diverticulitis now presenting c ileus. Tolerating continuous TPN @ 42mL/hr. Pt is wt stable past 5d, risk of refeeding low now that on TPN day 3. Currently on clear liquids, requesting a hamburger. If pt tolerates substantial clear diet at lunch, consider advancing to full liquids and/or low residue. Pt unlikely to meet needs c PO intake as liquid diet, recc continuing TPN until pt able to meet EERs c solid PO diet. If continuing TPN, please increase rate to reflect EER reccs outlined below. Final Goal Rate 60mL/hr Clinimix 5d/week and 40mL/hr Clinimix plus 250mL 20% IVFE 2d/week to prevent fatty acid deficiency. 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 *Pt weight on admission on 05/10/2018 was 75kg showing 22% wt loss (severe) in 6 mo increasing Acute on Chronic PCM from Moderate to Severe re: ASPEN guidelines. Interventions: EERs: 1400kcal (25kcal/kg per malnutrition), 65g PRO (1.1g/kg), 1800mL fluids/d (35mL/kg) TPN via PICC line: Goal rate 5d/week: Continuous 40mL/hr Clinimix plus 25mL/hr 20% IVFE over 10hrs (250mL total) providing 1480kcal (105%), 41g PRO (63%), and 1,050mL fluids. Goal rate 2d/week: Continuous 60mL/hr Clinimix providing 1440kcal (103%), 60g PRO (93%) and 1400mL fluids (78%). TPN not meant for wt gain. Adequate IV fluid hydration to meet discrepency bw TPN fluids and daily needs. Daily weights, I&Os every 8h, if infusion is interrupted longer than 60 minutes, hang 10% Dextrose IV at same ordered rate. Reduced risk for refeeding syndrome now that TPN is day two, continue monitor BG, third spacing, and labs: Mg, K+, Phos; consider supplementing. Monitoring/Evaluations: wt, I&Os, associated labs, tpn tolerance and advancement, edema and BG, reassessing EERs increasing to 30-35kcal/kg when refeeding no longer risk.
[2018-12-19] MEDS: ONDANSETRON 4 MG/2 ML INJ IV (15:04)
--- NOTE | 2018-12-19 15:47 | PC.NURSE ---
colostomy and vanessa drain site 1540 distal portion of colostomy appliance dressing is leaking. appliance removed and skin cleansed. stomahesive to crater at distal aspect of stoma applied and skin that appliance will be covering had skin adhesive applied. new appliance and bag placed. 100cc yellowish green output emptied from previous bag. stoma beefy red. gauze dressing removed from previous vanessa drain site as was saturated with serous fluid. no active drainage noted from vanessa site currently. abd pad placed and secured with paper tape.
[2018-12-19] MEDS: AA 5 %/CALCIUM/LYTES/DEXT 20 % 1,000 ML with MULTIVITAMIN 10 ML, TRACE ELEMENTS 1 ML 42.125 ML IV (17:21)
--- NOTE | 2018-12-19 20:15 | PC.NURSE ---
Addendum entered by Ava Norris R.N. 12/19/18 22:51: Left lateral abdomen dressing once again saturated with serous drainage from previous drain site. Dressing was changed to folded 4 x 4 (x2) and secured with tape. Original Note: Pt awake and alert in bed. Taking yogurt and chicken noodle soup dinner well without nausea. Denies abdominal pain. Following evening meal, pt does not say anything to staff, but during assessment, this scientific writer notes pt's gown is saturated and pt's ostomy bag is full of liquid stool. Wafer beginning to pull away from skin with weight of filling ostomy bag. Entire appliance removed. Cleansed pt's skin around pink stoma with warm water and dried. Removed all debris from old wafer from pt's skin. Applied skin prep and replaced wafer and bag. Pt is not engaged in this process nor participatory. Previous left lateral abdomen drain site drainage has saturated ABD pad with serous drainage. This was removed and again skin cleansed and bulky gauze with tape applied. Pt was assisted to reposition in bed. Waffle cushion under buttocks. Allevyn dressings intact to buttocks. TPN infusing as ordered to LUE PICC without difficulty. BL calf scd's in place. Pt's spouse re-enters pt's room for the evening.
[2018-12-19] MEDS: PANTOPRAZOLE 40 MG VIAL IV (21:45)
[2018-12-19] MEDS: DONEPEZIL 5 MG TABLET 10 MG PO (21:45)
[2018-12-20] MEDS: DEXTROSE 5%-0.45% NS 1,000 ML 75 ML IV (01:01)
--- NOTE | 2018-12-20 03:59 | PC.NURSE ---
Addendum entered by Patti Rodriguez R.N. 12/20/18 06:18: No further rectal bleeding this shift. Has had 400cc stool output and 300cc UOP this shift. Denies pain this morning. Original Note: At shift change patient found lying on bloody linens; cleansed and repositioned and has had no further bleeding noted. Is alert and oriented except for day of month/week. Breath sounds CTA with RA sat of 98%. HRR. Denies nausea. Currently is on TPN. BT present and abdomen is soft. Ileostomy draining yellow/brown liquid with some soft yellow particles noted; stoma beefy red. Lap sites are dermabonded and without redness/drainage. Angel drain site dressing is CDI. Allevyn dressing to coccyx is CDI. Is being repositioned q2h and has waffle cushion under buttocks to reduce pressure; patient does assist with turning. States pain is 2/10 but declines offer of pain medication. Wearing bilateral SCD's Indwelling catheter is patent; urine clear jamila but with decreased UOP on previous shift. Fall risk score is moderate; bed alarm is activated.
[2018-12-20 05:00] VITALS: BP 142/60; PULSE 69; RESP 18; TEMP 37.1; O2SAT 99
[2018-12-20 05:58] LABS: BUN Creatinine Ratio 18.3 (6-22); Blood Urea Nitrogen 11 mg/dL (9-20); Calcium 8.2 mg/dL (8.4-10.2); Carbon Dioxide 27 mmol/L (22-32); Chloride 100 mmol/L (98-107); Estimated Glomerular Filt Rate > 60.0 mL/min (>60); Glucose 115 mg/dL (80-110); HEMOLYSIS < 15 (0-50); Magnesium 1.7 mg/dL (1.6-2.3); Phosphorous 2.7 mg/dL (2.3-3.7); Potassium 3.5 mmol/L (3.4-5.1); Sodium 133 mmol/L (137-145)
[2018-12-20] MEDS: HEPARIN 5,000 UNIT/ML VIAL 5000 UNIT SUBCUT (06:07)
[2018-12-20 06:48] VITALS: BP 99/54; PULSE 88
[2018-12-20 07:00] VITALS: O2SAT 99
[2018-12-20 07:35] VITALS: BP 117/46; PULSE 63; RESP 20; TEMP 36.4; O2SAT 99
--- NOTE | 2018-12-20 08:26 | PM.PNPO.1 ---
Subjective Date Patient Seen: 12/20/18 Time Patient Seen: 08:26 Interval history: No acute overnight events. Tolerated a regular diet. No fever nausea vomiting or pain. Exam Vital Signs (past 8 hours): - 12/20/18 05:00 12/20/18 06:48 12/20/18 07:35 Temperature 98.7 F 97.5 F L Pulse Rate 69 88 63 Respiratory Rate 18 20 Blood Pressure 142/60 H 99/54 L 117/46 L Pulse Oximetry 99 99 Oxygen Delivery Method Room Air Oxygen Flow Rate 0 Narrative Exam Narrative: General adult male alert oriented x3 in no acute distress. Chest nonlabored respirations. Abdomen soft. Ileostomy productive and viable. Incisions clean dry intact. Extremities warm well perfused Objective Labs Result Diagrams: 12/18/18 07:30 12/20/18 05:30 Labs: Laboratory Results - last 24 hr 12/19/18 12/20/18 11:30 05:30 Sodium 134 L 133 L Potassium 3.7 3.5 Chloride 99 100 Carbon Dioxide 27 27 BUN 12 11 Creatinine 0.70 0.60 L Estimated GFR > 60.0 > 60.0 BUN/Creatinine Ratio 17.1 18.3 Glucose 114 H 115 H Calcium 8.5 8.2 L Phosphorus 3.1 2.7 Magnesium 1.8 1.7 Assessment & Plan Post-op Postoperative Procedures Operation Date: 12/12/18 11:45 Actual Procedures Side Surgeon p hand assisted laprascopic sigmoid takedown of colovesical fistula with sigmoidectomy stapled colorectal anastomosis, laparoscopic splenic flexure takedown, diverting loop ileostomy Not Applicable Jarett Gonzalez MD Postoperative plan narrative: 83-year-old male postoperative day 9 status post laparoscopic sigmoid colectomy with diverting ileostomy for complicated diverticular disease. Doing well. Postoperative ileus resolved. Tolerating regular diet. Medically stable for discharge. DC TPN. Ostomy teaching. Will plan for discharge to rehab today. Continue Marshall until 12/25 Quality VTE Deep Vein Thrombosis/Pulmonary Embolism Present on Admission: No
--- NOTE | 2018-12-20 08:41 | CM.DPC ---
Addendum entered by Aditi Acosta R.N. 12/20/18 12:03: Had Ana in IT assist with [employer]. Went to surgery clinic and retrieved from office. Had spoken to son in [place], regarding home situation. He did not seem concerned about his mother, while patient is in retirement recovering. He felt that she could stay in a hotel. Let him know that patient is to be going to [facility] today. This lead case manager went to let patient know time. , Maira, upset, stated, no one told me that he is going to [place] this afternoon, and I'm the POA. Let her know that this lead case manager attempted to tell her, but patient was on the phone with the son. She stated, from now on, you go through me, not my son. stated, he can't go today, he's not ready, and they need to do more teaching with his new ostomy. let her know that [facility] has nurses there that are trained. Patient stated, I'm not medically stable, I need to stay here, I just started solid foods today, and I have the hiccups. Noted that patient started solids last evening. Mentioned to , Maira, that this lead case manager was in room yesterday discussing possible [place], for TPN. She stated, I don't remember you coming in and talking to me. Stated that this lead case manager was in the room, for she had mentioned that she wanted patient to go to [facility]. Contacted Dr. Medrano, and asked him to come and talk to patient, as well as depot manager, Julianne. Explained that patient is medically stable, and could be discharged today, but patient continued to state, he's not medically stable. kept repeating she was upset that her son knew about discharge before her. Had apologized to several times regarding this matter. Dr. Medrano continues to state that patient is medically able for discharge today. Encouraged patient to call gonzalez if he wishes to appeal. Spoke to Stanton Vera lead case manager. She had spoken to patient briefly, and let this lead case manager know that she would contact patient regarding calling the number on the back of his card to appeal. She is asking for the latest notes from provider. Nupur Grace will be coming over to see patient, and will talk to him about discharge to attempt to put patient at ease, regarding new ostomy. [facility] will call this lead case manager back, and will ask if appealed, how long the process will take. Will still attempt to get patient discharged today. Faxed over documents, PASSR, med sheets, discharge summary, to [facility]. Addendum entered by Aditi Acosta R.N. 12/20/18 09:42: Spoke to Rosario Simeon at [place]. Let her know that this lead case manager has faxed latest P.T. note, and went over note over the phone. She stated that she would go ahead and authorize. Spoke to Jyotsna at [facility], she can pick patient up at 2:[address] Medrano, he is having difficulty printing out medication list, he has not yet reconciled medication, and this production control planner is unable to help him with this task. Encouraged him to call I.T. and speak to Ana, for she can guide him through this process. Will complete PASSR and obtain discharge summary for now. Original Note: DCP Cont: Spoke to Dr. Medrano, surgeon. He stated, patient could be discharged today, he is letting TPN run out, and will be on general diet. He stated that he would be back to do orders. Let him know that this lead case manager would work on getting [facility] to [facility]. Left Rosario Simeon, [facility] lead case manager, a message, that patient could be discharged today. Left Jyotsna, park activities coordinator at [facility] a message as well. Nurse, Stacey, is also aware of plan. Faxed [facility] latest P.T. note, and nursing note. P:DCP to continue to reach [facility], and will await a response from October. Adiit Acosta RN/Material Damage Appraiser
[2018-12-20] MEDS: CARBIDOPA-LEVODOPA 10/100 TABLET 1 EACH TUBE (08:54)
[2018-12-20] MEDS: ASPIRIN 81 MG TAB PO (08:55)
--- NOTE | 2018-12-20 08:56 | P.DS_ITS ---
History of Present Illness Date Patient Seen: 12/20/18 Time Patient Seen: 08:53 Chief complaint: diverticulitis Narrative: 83-year-old male with complicated diverticulitis, a colovesicular fi stula. He presented to the hospital for elective sigmoid resection Discharge Providers Date of admission: 12/11/18 09:20 Discharge Date: 12/20/18 Primary care physician: Luis Daniel Varghese MD Consults: 12/12/18 18:59 Consult to Wound Care Routine Comment: New temporary ileostomy Consulting Provider: [facility] 12/13/18 09:08 Consult to Physical Therapy Evaluate & Treat Comment: gait training and mobilization after abd surgery Physician Instructions: Evaluate and Treat 12/13/18 09:09 Consult to Occupational Therapy Evaluate & Treat Comment: POD1 after abd surgery Physician Instructions: Evaluate and treat 12/14/18 12:13 Consult to Ostomy Specialist Routine Comment: Consulting Provider: 12/17/18 11:42 Consult to PICC Line RN Routine Comment: 12/19/18 20:32 Consult to Dietitian, Adult Routine Comment: Reason For Exam: Seth scale prompts this consultation Discharge provider: Tony Medrano MD Summary Discharge Diagnosis: -sp laparoscopic sigmoid colectomy with diverting ileostomy -post operative ileus -Parkinsons -protein malnutrition Hospital Course: 83-year-old male with complicated diverticular disease specifically a colovesicular fistula presented for a elective laparoscopic sigmoid colectomy. He underwent a laparoscopic sigmoid colectomy with diverting ileostomy on 12/11/2018. His postoperative course was remarkable for a postoperative ileus. He had slow return of bowel function. He required an nasogastric tube for decompression. He was evaluated by Nutrition have who felt that he had moderate protein malnutrition and given his slow return of bowel function TPN was began on postoperative day 5. He had leukocytosis during his post operative period for which zosyn was began. Given his ileus and leukocytosis there was concern for intra abdominal abscess. He had a CT A/P which was negative for intra abdominal abscess and because he remained afebrile the Zosyn was discontinued. He ultimately had return of bowel function and was tolerating a regular diet by 12/19/2018. On the date of discharge he is doing well. He is tolerant of diet, has a functioning ileostomy. He is afebrile without pain nausea vomiting. His Marshall catheter has been in place since the time of the operation and should remain until 12/25/2018. A Marshall has been in place because the repair of his colovesicular fistula. He has been evaluated by physical therapy who feel that he would benefit from rehabilitation at a fdc facility. Status at Discharge Cognitive/behavioral status at discharge: at baseline, oriented Functional status at discharge: wheelchair bound Overall status at discharge: patient is progressing back to baseline Time Spent with Patient Greater than 30 minutes Exam Vital Signs (past 8 hours): - 12/20/18 05:00 12/20/18 06:48 12/20/18 07:35 Temperature 98.7 F 97.5 F L Pulse Rate 69 88 63 Respiratory Rate 18 20 Blood Pressure 142/60 H 99/54 L 117/46 L Pulse Oximetry 99 99 Oxygen Delivery Method Room Air Oxygen Flow Rate 0 Narrative Exam Narrative: General adult male in no acute distress alert and oriented Chest clear to auscultation bilaterally Cardiac regular rate and rhythm Abdomen soft incisions clean dry intact. Ileostomy viable and productive. Extremities warm well perfused Objective Labs Result Diagrams: 12/18/18 07:30 12/20/18 05:30 Labs: Laboratory Results - last 24 hr 12/19/18 12/20/18 11:30 05:30 Sodium 134 L 133 L Potassium 3.7 3.5 Chloride 99 100 Carbon Dioxide 27 27 BUN 12 11 Creatinine 0.70 0.60 L Estimated GFR > 60.0 > 60.0 BUN/Creatinine Ratio 17.1 18.3 Glucose 114 H 115 H Calcium 8.5 8.2 L Phosphorus 3.1 2.7 Magnesium 1.8 1.7 Discharge Plan Discharge Plan Patient Disposition: SNF Transfer to: [facility] Discharge comment: -Ostomy teaching -Ileostomy output goal <1,000 ml/day if greater will need to add metamucil and or immodium to reach goal Marshall remains until 12/25 because of surgical repair of colovesicular fistula. I certify the postop hospital fdc care is medically necessary on a continuing basis for any conditions for which he/ she received care during this hospitalization.: Yes The receiving facility has agreed to accept transfer and provide medical treatment.: Yes Discharge Med Rec/Prescriptions Prescriptions: Continued donepezil 10 mg Tablet 15 mg PO QPM RF: 0 fluoxetine 10 mg Tablet 5 mg PO DAILY RF: 0 aspirin 81 mg Tablet,Delayed Release (Dr/Ec) 162 mg PO QPM RF: 0 meclizine 25 mg Tablet 25 mg PO BID PRN (Reason: Vertigo) RF: 0 epinephrine [EpiPen 2-Lorenzo] 0.3 mg/0.3 mL Auto-Injector 0.3 ml IM PRN PRN (Reason: Anaphylaxis) RF: 0 omega 0-shn-bpb-fish oil 1,200 (144-216) mg Capsule 1,200 mg PO DAILY RF: 0 multivitamin Tablet 1 tab PO DAILY RF: 0 ranitidine HCl 150 mg Tablet 150 mg PO QAM RF: 0 cholecalciferol (vitamin D3) [Vitamin D3] 2,000 unit Capsule 2,000 unit PO QPM RF: 0 calcium carb-mag ox-zinc sulf 333-133-5 mg Tablet 1 tab PO QAM RF: 0 ranitidine HCl 150 mg Tablet 75 mg PO BEDTIME RF: 0 carbidopa-levodopa 10-100 mg Tablet 1 tab PO TID RF: 0 tamsulosin [Flomax] 0.4 mg Capsule,Extended Release 24hr 0.4 mg PO BEDTIME RF: 0 Discontinued tramadol 50 mg Tablet 50 mg PO BID Qty: 40 RF: 0 lorazepam 0.5 mg Tablet 0.5 mg PO BID Qty: 20 RF: 0 Follow up/Referrals: Tony Medrano MD [Physician] - Luis Daniel Varghese MD [Primary Care Provider] - Discharge Health Status Brief summary of current health status: 83 male with Parkinsons sp laparoscopic sigmoid colectomy with diverting loop ileostomy for complicated diverticulitis. Provider Discharge Instructions Diet: Regular [facility] Reason for rehabilitation: Post-operative therapy Restrictions to mobility: No lifting >20 lbs for 6 weeks post op Discharge Data Primary Care Provider: Luis Daniel Varghese Attending Provider: Jarett Gonzalez Admit Date/Time: 12/11/18 09:20 Quality VTE Deep Vein Thrombosis/Pulmonary Embolism Present on Admission: No
--- NOTE | 2018-12-20 10:13 | DIET.PN ---
Dietary Progress Note Assessment: 83y M postop day 9 s/p laparoscopic sigmoid colectomy c diverting ileostomy for complicated diverticulitis. RD consult re: lizeth score from Dr. Gonzalez. Pt ileus seems to be resolving, is on general diet, tolerated dinner (chicken noodle soup, yogurt, banana) and breakfast (cream of wheat c eggs) well. 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 Interventions: Recc pt receives Ensure Enlive (700kcal/40g PRO) bid until appetite big enough to meet EERs with food. Supplementing with Enlive would provide 40% kcals and 60% PRO, along with meals at [facility], likely adequate nourishments. Provided pt with coupon for purchasing additional Enlive. This course will support resolving PCM and lower risk for skin breakdown re: consult for lizeth score. EERs: 1750kcal (30kcal/kg), 65g PRO (1.1g/kg), 1800mL fluids/d (35mL/kg) Monitoring/Evaluations:
--- NOTE | 2018-12-20 13:02 | CM.DPC ---
DCP Cont: Rosario Simeon called back this pillowcase turner after having conversation with . She did tell patient that it may not be guaranteed that he could still have a bed tomorrow at [facility], and may have to go somewhere else. She stated that she gave him the option to appeal, but he declined. Nupur Grace also here, doing some ostomy teaching, and brought more supplies. Stated that she would like to see him next week at wound clinic. Spoke to patient, had him sign IMM, he is ok with discharge today. Apologized to patient and for not letting them know about discharge sooner today. Updated Jyotsna at [facility] that patient will need to follow up next week with wound clinic to see Nupur. They will call Melissa and set up. [place] son, who is autistic, he is 50 years old. P: Patient will be discharged to [facility] today. Folder is complete, all documents faxed over. Aditi Acosta RN/Log Feeder
--- NOTE | 2018-12-20 13:43 | PC.NURSE ---
Ostomy Nurse Consult Note Mr. Valdez is leaving today to go to [facility]. He is in bed and his is in the room with him. He continues to improve and had finished his lunch eating about 75% of his meal which he tolerated well. I brought in extra ostomy supplies to send over to [facility]. Convatec 45mm Moldable Wafer and non-filtered clear pouches. I did empty his pouch for 225cc of green liquid effluent and there was a lot of gas as well. I did not change his appliance. I would like to follow up with [facility]. Care Management spoke to [facility] and this will be arranged.
--- NOTE | 2018-12-20 14:05 | PC.NURSE ---
Report has been called and provided to receiving SUGEY Sy at [facility] at 1350. TPN has been stopped per discussion with Dr. Medrano without taper as pt is eating and drinking 50%-80% of his meals. PICC has been removed. Marshall remains per order. Dressing has been change to d/c'd vanessa drain site to pt's LLQ as it has become saturated with serous fluid x2 today. Abd pad and telfa applied. Alleyvn dressing to coccyx is CDI.
== END 2018-12-20 14:43 | DRG 981 ==
PROVIDERS: Specialist; Surgery; Admitting Provider Surgery; PCP Family Medicine; Visit Provider Surgery
PROC: 0DTE0ZZ Resection of Large Intestine, Open Approach (ICD-10-PCS; principal; 2018-12-12 11:45)
DX: N32.1 Vesicointestinal fistula (principal); E43 Unspecified severe protein-calorie malnutrition; K56.7 Ileus, unspecified; K57.32 Diverticulitis of large intestine without perforation or abscess without bleeding; G20 Parkinson's disease; K66.0 Peritoneal adhesions (postprocedural) (postinfection); K52.9 Noninfective gastroenteritis and colitis, unspecified; K21.9 Gastro-esophageal reflux disease without esophagitis; I10 Essential (primary) hypertension
CPT/HCPCS: 36415; 36569; 44207; 44213; 71045; 74018; 74176; 80048; 82962; 83735; 84100; 85025; 86850; 86900; 86901; 97116; 97162; 97167; 97530; 97535; B4189; C9113; J0131; J0330; J1100; J1335; J1644; J2250; J2270; J2274; J2405; J2543; J2704; J3010; J3475; J3480; Q9968

== ENCOUNTER 2018-12-20 17:24 | Emergency (ER) | payer OTHER, SELFPAY ==
[2018-12-20 17:30] VITALS: BP 139/58; PULSE 87; RESP 20; TEMP 36.7; O2SAT 100
[2018-12-20 18:00] VITALS: BP 131/55; PULSE 79; RESP 17; O2SAT 98
--- NOTE | 2018-12-20 18:26 | PC.NURSE ---
illeostomy drainage hemocult negative for blood.
[2018-12-20 18:30] VITALS: BP 129/54; PULSE 81; RESP 18; O2SAT 100
--- NOTE | 2018-12-20 18:39 | PC.NURSE ---
pt arrived to Er with an indwelling sharma draining yellow urine. illeostomy draining greenish brown liquid stool. pt was wearing hospital socks that were wet with blood when pt stood up to use his walker. c/o abdominal pain. mild.
[2018-12-20 18:50] LABS: Add Manual Diff / Slide Review YES; Hematocrit 31.6 % (41-53); Hemoglobin 10.4 g/dL (13.5-17.5); Mean Corpuscular HGB Conc 32.9 % (30-36); Mean Corpuscular Hemoglobin 32.4 PG (26-34); Mean Corpuscular Volume 98.3 fL (80-100); Platelet Count 347 X10^3/uL (150-400); Red Blood Cell Count 3.21 X10^6/uL (4.5-5.9); Red Cell Distribution Width 14.3 % (11.6-14.8); White Blood Cell Count 18.7 X10^3/uL (4.5-11.0)
--- NOTE | 2018-12-20 19:05 | ED.GIBLEED ---
HPI - GI Bleed General Chief complaint: GI Bleed Stated complaint: rectal Bleeding Time Seen by Provider: 12/20/18 18:14 Source: patient Mode of arrival: ambulatory Limitations: no limitations History of Present Illness HPI Narrative: Patient is an 83-year-old male who is here for evaluation of an episode of rectal bleeding. Patient was just discharged from the hospital today after being admitted for a colon resection. He has an ileostomy. 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 He also has a urinary catheter in place. Patient states that today he was at the rehab facility where he was sent after is discharged and he was transitioning from the bed to a wheelchair when he had an episode of blood from his rectum. Has not had any episodes since then. Has some abdominal pain but this is not new. Related Data Home Medications Medication Instructions Recorded Confirmed tamsulosin [Flomax] 0.4 mg PO BEDTIME 09/13/17 12/20/18 aspirin 162 mg PO QPM 05/10/18 12/20/18 calcium carb-mag ox-zinc sulf 1 tab PO QAM 05/10/18 12/20/18 cholecalciferol (vitamin D3) 2,000 unit PO DAILY 05/10/18 12/20/18 [Vitamin D3] donepezil 15 mg PO QPM 05/10/18 12/20/18 epinephrine [EpiPen 2-Lorenzo] 0.3 ml IM PRN PRN 05/10/18 12/20/18 fluoxetine 5 mg PO DAILY 05/10/18 12/20/18 meclizine 25 mg PO BID PRN 05/10/18 12/20/18 multivitamin 1 tab PO DAILY 05/10/18 12/20/18 omega 7-jmi-rzr-fish oil 1,200 mg PO DAILY 05/10/18 12/20/18 ranitidine HCl 75 mg PO BEDTIME 05/10/18 12/20/18 ranitidine HCl 150 mg PO QAM 05/10/18 12/20/18 carbidopa-levodopa 1 tab PO TID 10/26/18 12/20/18 bisacodyl 5 - 10 mg PO PRN PRN 12/20/18 12/20/18 bisacodyl 10 mg AR PRN PRN 12/20/18 12/20/18 lactobacillus combo no.11 1 cap PO DAILY 12/20/18 12/20/18 [Probiotic] magnesium hydroxide [Milk of 30 ml PO PRN PRN 12/20/18 12/20/18 Magnesia] sodium phosphates [Fleet Enema] 118 ml AR PRN PRN 12/20/18 12/20/18 Allergies Allergy/AdvReac Type Severity Reaction Status Date / Time bee venom protein (honey bee) Allergy Severe Anaphylaxis Verified 11/29/18 09:52 gabapentin AdvReac Intermediate Hallucinati Verified 11/29/18 09:52 ng hydromorphone [From Dilaudid] AdvReac Intermediate Vomiting Verified 11/29/18 09:52 Review of Systems Constitutional Denies fever(s) Cardiovascular Denies chest pain and Denies dyspnea Respiratory Denies dyspnea Gastrointestinal Gastrointestinal: Reports abdominal pain Comments: Rectal bleeding Genitourinary Comments: Marshall catheter in place Integumentary/Breasts Denies rash Neurologic Denies behavioral changes Psychiatric Denies behavioral changes Hematologic/Lymphatic Denies easy bleeding and Denies easy bruising [facility] Medical History Anemia (Acute) Cholelithiasis (Acute) Colovesical fistula (Acute) Compression fracture of L1 vertebra (Acute) Fall (Acute) Gastroesophageal reflux (Acute) Hypertension (Acute) Pubic ramus fracture (Acute) Right femoral fracture (Acute) Sigmoid diverticulitis (Acute) Surgical History (Updated 12/15/18 @ 13:11 by Tony Medrano MD) History of left hip replacement (Acute) Status post left shoulder hemiarthroplasty (Acute 11/01/18) Family History (System 11/14/18 @ 10:44 by Sendy Crawford) Father Lymphoma Mother Cancer Dementia Brother Cancer Smoker Social History marital status: household members: spouse occupational status: previously employed Smoking Status: Never smoker alcohol intake: never substance use type: does not use Social History marital status: household members: spouse occupational status: previously employed Smoking Status: Never smoker alcohol intake: never substance use type: does not use Exam Initial Vital Signs Initial Vital Signs: Vital Signs Temperature 98.0 F 08/08/19 17:30 Pulse Rate 87 12/20/18 17:30 Respiratory Rate 20 12/20/18 17:30 Blood Pressure 139/58 L 12/20/18 17:30 Pulse Oximetry 100 12/20/18 17:30 Const General: cooperative, comfortable, well developed and well groomed Orientation: alert, awake and oriented x3 HENMT Head: normal to inspection and normocephalic Resp Effort & Inspection: normal respiratory effort Auscultation: clear to auscultation bilaterally Cardio Rate: regular rate Rhythm: regular rhythm GI Inspection: non-distended Palpation: soft Other: Ileostomy in place with brown stool in back. Patient with a stage I sacral decubitus No hemorrhoids seen. Other: Marshall catheter in place Skin Lesions: no lesions Rashes: no rashes Neuro General: alert and awake Cognition: normal cognition Speech: speech normal Extrem General: normal to inspection and capillary refill normal Psych Appearance: grossly normal and well kempt Course Orders Ordered: ED Orders 12/20/18 18:22 EKG-12 Lead Stat 12/20/18 18:43 Complete Blood Count AUTO DIFF Stat Comprehensive Metabolic Panel Stat Partial Thromboplastin Time Stat Prothrombin Time INR Stat Vital Signs - 8 hr 12/20/18 19:30 Pulse Rate 82 Respiratory Rate 18 Blood Pressure [Right Arm] 120/56 L Pulse Oximetry 98 MDM - GI Bleed Lab Data Attestation: I reviewed the patient's lab results. Result diagrams: 12/20/18 18:43 12/20/18 18:43 Lab Results 12/20/18 12/20/18 12/20/18 Range/Units 18:43 18:43 18:43 WBC 18.7 H (4.5-11.0) X10^3/uL RBC 3.21 L (4.5-5.9) X10^6/uL Hgb 10.4 L (13.5-17.5) g/dL Hct 31.6 L (41-53) % MCV 98.3 (80-100) fL MCH 32.4 (26-34) PG MCHC 32.9 (30-36) % RDW 14.3 (11.6-14.8) % Plt Count 347 (150-400) X10^3/uL Neut % (Auto) Not Reportable Lymph % (Auto) Not Reportable [place] % (Auto) Not Reportable Eos % (Auto) Not Reportable Baso % (Auto) Not Reportable Lymph # (Auto) Not Reportable [place] # (Auto) Not Reportable Baso # (Auto) Not Reportable Total Counted 100 Seg Neutrophils % 51.0 (38-70) % Band Neutrophils % 1.0 L (3-7) % Lymphocytes % (Manual) 27.0 (25-45) % Monocytes % (Manual) 11.0 (2-11) % Eosinophils % (Manual) 6.0 H (2-4) % Basophils % (Manual) 1.0 (0-1) % Metamyelocytes % 1.0 H (-0) % Myelocytes % 2.0 H (-0) % Neutrophils # (Manual) 9724 H (6856-8490) /uL RBC Morphology Normal morphology PT 12.3 (10.1-12.7) SECONDS INR 1.1 (0.9-1.3) APTT 29 (26.4-36.2) SECONDS Sodium 132 L (137-145) mmol/L Potassium 3.6 (3.4-5.1) mmol/L Chloride 101 (98-107) mmol/L Carbon Dioxide 26 (22-32) mmol/L BUN 12 (9-20) mg/dL Creatinine 0.60 L (0.66-1.25) mg/dL Estimated GFR > 60.0 (>60) mL/min BUN/Creatinine Ratio 20.0 (6-22) Glucose 99 (80-110) mg/dL Calcium 8.4 (8.4-10.2) mg/dL Total Bilirubin 0.1 L (0.2-1.3) mg/dL AST 19 (17-59) IU/L ALT 11 L (21-72) IU/L Alkaline Phosphatase 66 (38-126) U/L Total Protein 5.7 L (6.3-8.2) g/dL Albumin 2.6 L (3.5-5.0) g/dL Globulin 3.1 (1.7-4.1) g/dL Albumin/Globulin Ratio 0.8 L (1.0-2.8) Point of Care Testing Stool Occult Blood Negative MDM Narrative Medical decision making narrative: Patient has an ileostomy in place which is having brown stool output. Has a Marshall catheter in place which does not have any blood in the urine. He does have leukocytosis but this is not new. No hemorrhoids seen on exam. Discussed the case with Dr. Jasso who stated that is most likely residual blood from his surgery. Patient's labs are unremarkable. Not anemic. Nontoxic appearing. Will hold on further workup for now. Patient will contact his surgeon tomorrow for follow-up. He expressed understanding and agreement with plan. Discharge Plan Departure Patient Disposition: Home Clinical Impression: Rectal bleeding Discharge Date/Time: 12/20/18 20:56 Interventions: ED Discharge Assessment Last Done: 12/20/18 20:56 Instructions: Gastrointestinal Bleeding Activity Restrictions/Additional Instructions: Continue all of the post-operative instructions given to you by the Surgeons. If the bleeding continues or you start to have any new symptoms please return to the ER for further evaluation. The surgeon thanh recommended a repeat blood count in 2-3 days. Contact your primary care provider for a follow up. Conatct the surgery office tomorrow to discuss follow up as well. Prescriptions: No Action donepezil 10 mg Tablet 15 mg PO QPM RF: 0 fluoxetine 10 mg Tablet 5 mg PO DAILY RF: 0 aspirin 81 mg Tablet,Delayed Release (Dr/Ec) 162 mg PO QPM RF: 0 meclizine 25 mg Tablet 25 mg PO BID PRN (Reason: Vertigo) RF: 0 epinephrine [EpiPen 2-Lorenzo] 0.3 mg/0.3 mL Auto-Injector 0.3 ml IM PRN PRN (Reason: Anaphylaxis) RF: 0 omega 6-oer-juy-fish oil 1,200 (144-216) mg Capsule 1,200 mg PO DAILY RF: 0 multivitamin Tablet 1 tab PO DAILY RF: 0 ranitidine HCl 150 mg Tablet 150 mg PO QAM RF: 0 cholecalciferol (vitamin D3) [Vitamin D3] 2,000 unit Capsule 2,000 unit PO DAILY RF: 0 calcium carb-mag ox-zinc sulf 333-133-5 mg Tablet 1 tab PO QAM RF: 0 ranitidine HCl 150 mg Tablet 75 mg PO BEDTIME RF: 0 carbidopa-levodopa 10-100 mg Tablet 1 tab PO TID RF: 0 tamsulosin [Flomax] 0.4 mg Capsule,Extended Release 24hr 0.4 mg PO BEDTIME RF: 0 magnesium hydroxide [Milk of Magnesia] 400 mg/5 mL Suspension 30 ml PO PRN PRN (Reason: Constipation) RF: 0 bisacodyl 10 mg Suppository 10 mg AR PRN PRN (Reason: Constipation) RF: 0 Fleet Enema 19-7 gram/118 mL Enema 118 ml AR PRN PRN (Reason: Constipation) RF: 0 bisacodyl 5 mg Tablet 5 - 10 mg PO PRN PRN (Reason: mild to severe constipation) RF: 0 Probiotic 15 billion cell Capsule, Sprinkle 1 cap PO DAILY RF: 0 Referrals: Luis Daniel Varghese MD [Primary Care Provider] -
[2018-12-20 19:10] LABS: INR 1.1 (0.9-1.3); Prothrombin Time 12.3 SECONDS (10.1-12.7)
[2018-12-20 19:13] LABS: PTT Partial Thromboplastin Tim 29 SECONDS (26.4-36.2)
[2018-12-20 19:16] LABS: Alanine Aminotransferase 11 IU/L (21-72); Albumin 2.6 g/dL (3.5-5.0); Albumin Globulin Ratio 0.8 (1.0-2.8); Alkaline Phosphatase 66 U/L (38-126); Aspartate Aminotransferase 19 IU/L (17-59); Bilirubin Total 0.1 mg/dL (0.2-1.3); Blood Urea Nitrogen 12 mg/dL (9-20); Calcium 8.4 mg/dL (8.4-10.2); Carbon Dioxide 26 mmol/L (22-32); Chloride 101 mmol/L (98-107); Estimated Glomerular Filt Rate > 60.0 mL/min (>60); Globulin 3.1 g/dL (1.7-4.1); Glucose 99 mg/dL (80-110); HEMOLYSIS < 15 (0-50); Potassium 3.6 mmol/L (3.4-5.1); Sodium 132 mmol/L (137-145); Total Protein 5.7 g/dL (6.3-8.2)
[2018-12-20 19:28] LABS: Total Cells Counted 100
[2018-12-20 19:30] VITALS: BP 120/56; PULSE 82; RESP 18; O2SAT 98
[2018-12-20 19:33] LABS: Neutrophils Absolute Manual 9724 /uL (3000-5900)
[2018-12-20 19:34] LABS: RBC Morphology Normal Morphology
--- NOTE | 2018-12-20 19:54 | PC.NURSE ---
pt also arrived to ER with stage 2 coccyx/ sacrum breakdown. alleyn dressing falling off. wound care done-incontinent wipes and a new alleyn pad replaced. billy cream to buttocks and billy area.
== END 2018-12-20 20:56 | disposition home or self-care (01) ==
PROVIDERS: Emergency Provider Emergency Medicine; PCP Family Medicine
DX: K62.5 Hemorrhage of anus and rectum (principal); R10.9 Unspecified abdominal pain
CPT/HCPCS: 36415; 80053; 82272; 85025; 85610; 85730; 93005; 93010; 99284

== ENCOUNTER → 2019-03-27 11:19 | Outpatient (CLI) | payer OTHER, SELFPAY ==
--- NOTE | 2019-03-27 11:21 | DI.RAD.S_ITS ---
PROCEDURE: FL BARIUM ENEMA INDICATIONS: sp sigmoid resection evaluate prior to ileostomy reversal COMPARISON: [facility], CR, XR ABDOMEN 1V, 12/15/2018, 9:48. [facility], CT, CT ABDOMEN PELVIS WO CON, 12/18/2018, 10:17. 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 Partially imaged internal fixation hardware noted within the proximal right femur. There is a partially imaged left hip arthroplasty. There are moderate multilevel degenerative changes of the imaged lumbar spine. Suture material consistent with a surgical anastomosis projects over the midline pelvis/sacrum, consistent with provided history of prior sigmoid resection. Colon: There is adequate opacification of the postsurgical colon as evidenced by reflux into the terminal ileum and opacification of the appendix. There is a postsurgical appearance of the colon with broad dilatation of the rectum. There are numerous diverticula throughout the colon, worst in the descending colon. There is mild subtle wall thickening of the descending colon. No strictures or extrinsic mass effects are identified. No colonic fistulae or or leakage to suggest perforations. IMPRESSION: 1. Diffuse diverticulosis of the remaining colon, with associated postsurgical changes. 2. Mild subtle wall thickening of the descending colon, suggestive of prior chronic inflammation. Clinical correlation recommended. Dictated by: Damon Crews M.D. on 03/27/2019 at 13:58 Approved by: Damon Crews M.D. on 03/27/2019 at 14:06
== END ==
PROVIDERS: PCP Family Medicine; Visit Provider Surgery
DX: K57.30 Diverticulosis of large intestine without perforation or abscess without bleeding (principal); M47.816 Spondylosis without myelopathy or radiculopathy, lumbar region; Z98.0 Intestinal bypass and anastomosis status; Z96.642 Presence of left artificial hip joint
CPT/HCPCS: 74270

== ENCOUNTER 2019-04-02 10:46 | Inpatient (IN) | payer OTHER, SELFPAY ==
[2019-03-20 09:58] VITALS: BMI 23.3
[2019-04-02] VITALS (17 sets, daily range): BP systolic 136–168; BP diastolic 58–96; PULSE 84–104; RESP 15–19; TEMP 36.3–36.7; O2SAT 96–100; BMI 23.6
--- NOTE | 2019-04-02 | PATH_ITS ---
[facility] Accession Number: [id number] . 01 Material submitted: . ileum - ILEOSTOMY . 02 Diagnosis: Ileostomy and Ileum, Resections: Enterocutaneous anastomotic site with ischemia-type changes. Remaining segment of ileum with no diagnostic abnormality. Negative for granulomas, dysplasia and malignancy. V 04/05/2019 1441 Local . 02 Electronically signed: . Kenya Walls MD, Pathologist NPI- [id number] . 01 Gross description: . Received in formalin, labeled ileostomy, are two segments of small bowel (segment #1: length-11.2 cm, diameter-2.4 cm; segment #2: length-4.5 cm, diameter-1.5 cm) connected to a stoma (diameter-3.0 x 2.2 cm) encircled by a rim of ruvalcaba-stoner smooth shiny skin, with attached mesentery-up to 2.5 cm in depth (up to 0.2 cm in depth). The resection margins are received stapled. The serosa is stoner smooth and shiny. The mucosa is stoner with normal folds. No nodules, masses or lesions are identified. The resection margins are inked blue. Section code: (A1) segment #1 resection margin, longitudinal employee's representative; (A2, A3) segment #1, employee's representative serial sections submitted from resection margin toward stoma; (A4) segment #2 resection margin, longitudinal employee's representative; (A5) segment #2, employee's representative serial sections; (A6) stoma, employee's representative serial sections. ([id number]) /MRV 04/04/2019 1507 Local . 02 Pathologist provided ICD-10: Z43.2 . 02 CPT . 774637 Performed at: 01 [facility] [address] [place] [address], [place], [place] [id number] MD hSade Aiken MD Phone: [phone] Performed at: 02 [facility] [address] [place], [place] [id number] MD Kenya Walls MD Phone: [phone]
--- NOTE | 2019-04-02 11:21 | PM.PREOP ---
Pre-operative Note Interval Note History & Physical reviewed/Exam performed by Physician: Yes Changes to H&P: No
--- NOTE | 2019-04-02 11:27 | PM.DS.1 ---
History of Present Illness History of Present Illness Date Patient Seen: 04/02/19 Time Patient Seen: 11:27 Chief complaint: [id number] Narrative: This is a 83-year-old male with prior abdominal surgery who presented with a small-bowel obstruction. He presented with abdominal distension nausea vomiting obstipation a CT scan demonstrating a small-bowel obstruction no fever or leukocytosis. At admission he was nauseous vomiting distended a nasogastric tube was placed for decompression. One year ago he had a small-bowel obstruction presented a similar fashion and required operation Bridger his small bowel from adhesions in the right lower quadrant. Discharge Providers Provider Date of admission: 04/02/19 10:46 Primary care physician: Luis Daniel Varghese MD Discharge provider: Tony Medrano MD Summary Hospital Course Discharge Diagnosis: Small-bowel obstruction Status at Discharge Cognitive/behavioral status at discharge: oriented Functional status at discharge: independent ambulation Time Spent with Patient Time spent: Greater than 30 minutes Exam Narrative Exam Narrative: General adult male alert oriented no acute distress Chest nonlabored respiration Abdomen soft incisions clean dry intact damaris. Discharge Plan Discharge Plan Patient Disposition: Home Discharge orders & Medications Prescriptions: Continued fluoxetine 10 mg Tablet 10 mg PO DAILY RF: 0 aspirin 81 mg Tablet,Delayed Release (Dr/Ec) 162 mg PO QPM RF: 0 meclizine 25 mg Tablet 25 mg PO QAM RF: 0 epinephrine [EpiPen 2-Lorenzo] 0.3 mg/0.3 mL Auto-Injector 0.3 ml IM PRN PRN (Reason: Anaphylaxis) RF: 0 multivitamin Tablet 1 tab PO DAILY RF: 0 cholecalciferol (vitamin D3) [Vitamin D3] 2,000 unit Capsule 2,000 unit PO DAILY RF: 0 calcium carb-mag ox-zinc sulf 333-133-5 mg Tablet 1 tab PO QAM RF: 0 carbidopa-levodopa 10-100 mg Tablet 1 tab PO TID RF: 0 famotidine [Pepcid AC] 10 mg Tablet 10 mg PO BID RF: 0 donepezil 10 mg Tablet 10 mg PO BEDTIME RF: 0 naproxen sodium [Aleve] 220 mg Capsule 220 - 440 mg PO BID PRN (Reason: Pain) RF: 0 magnesium hydroxide [Milk of Magnesia] 400 mg/5 mL Suspension 30 ml PO PRN PRN (Reason: Constipation) RF: 0 Fleet Enema 19-7 gram/118 mL Enema 118 ml [place] PRN PRN (Reason: Constipation) RF: 0 Follow up/Referrals: Tony Medrano MD [Physician] - Luis Daniel Varghese MD [Primary Care Provider] - Diet/Activity/Treatments Diet: Diet as Tolerated Activity: no lifting >20lbs for 6 weeks. Skin/Wound/Dressing Care Report to your healthcare provider any signs of infection, such as:: increased pain Discharge Data Primary Care Provider: Luis Daniel Varghese
[2019-04-02] MEDS: LACTATED RINGERS 1,000 ML 42 ML IV (11:49)
[2019-04-02] MEDS: PIPERACILLIN-TAZO 3.375 GM/50 ML FROZ.PIGGY IV (12:08)
--- NOTE | 2019-04-02 12:41 | SUR.OPER ---
Supine on padded OR bed, head on pillow, arms secured on padded arm boards at <90 degrees abduction, legs uncrossed, safety belt at thigh.
--- NOTE | 2019-04-02 12:43 | SUR.OPER ---
Ileostomy closed by prior to surgical skin prep. Ileostomy covered with surgical sponge and draped with Ioban prior to surgical drapes being placed. Surgical sponge removed from ileostomy and passed off field for surgical count.
--- NOTE | 2019-04-02 14:09 | PM.OP.1 ---
Operative Date/Time/Diagnoses Date of procedure: 04/02/19 Time of procedure: 14:09 Pre-op diagnosis: Ileostomy Post-op diagnosis: same Procedure & Clinicians Procedure: Ileostomy reversal Same procedure as scheduled: Yes Indications: 83-year-old male 5 months status post sigmoid colectomy for colovesicular fistula and diverting ileostomy presents for ileostomy takedown. preoperatively he underwent a barium enema and to study is colonic anastomosis which was patent and without fistula. Surgeon: Tony Medrano Operative Notes Findings: Widely patent orsc-yh-ymjc anastomosis Specimen(s): other (Ileostomy) Estimated Blood Loss (mL): 10 Procedure in detail: Patient was brought to the operating room and placed supine on the table. Bilateral lower extremity compression devices were applied. He recieved 3.375 g of Zosyn prior to skin incision. General anesthesia was induced and he was intubated with an endotracheal tube. The ileostomy was closed using a oalvie-my-mwdpa suture. The abdomen was then prepped and draped in usual sterile fashion. Time-out was performed to ensure the correct patient procedure necessary equipment within the operating room. I began by making a circumferential incision around the ileostomy. The subcutaneous tissues were divided with electrocautery and the adhesions to the fascia were taken down carefully. The ileostomy was now mobile and it was gently retracted out of the abdomen. I resected the ileostomy by creating a window in the mesentery and then dividing the the bowel proximal and distal to the ostomy using the Endo-ARCELIA stapler with a a bowel load staple. The mesentery to the specimen was then taken with the Thunderbeat. The specimen was passed off the field as ileostomy. I created a imvo-xk-yrxk anastomosis by making a enterotomy on the antimesenteric border of both ends and then the stapler was used to create a common channel between the ends. The anastomosis was inspected and was widely patent and hemostatic. I closed the common channel using a running 4 0 PDS suture. Then the mesenteric defect was closed using a running Vicryl suture. It was necessary to slightly extend the fascial incision in order to return the anastomosis to the abdomen. With this complete everything was thoroughly irrigated. The fascia was then closed using 1. [place]on in figure-eight fashion. The subcutaneous tissue was reapproximated using Vicryl suture and skin was closed with damaris and a [place] drain was placed within the wound. Patient tolerated procedure well he was extubated and transferred to the postoperative care unit in stable condition. Complications: none Post-operative Condition: stable Disposition: observation
[2019-04-02] MEDS: MORPHINE 10 MG/ML INJ 2 MG IV (14:31)
[2019-04-02] MEDS: OXYCODONE IR 5 MG TABLET PO (14:46)
[2019-04-02] MEDS: SODIUM CHLORIDE 0.9% 1,000 ML 100 ML IV (15:34)
[2019-04-02] MEDS: CARBIDOPA-LEVODOPA 10/100 TABLET 1 EACH PO ×2 (15:40→20:28)
[2019-04-02] MEDS: ACETAMINOPHEN 325 MG TABLET 650 MG PO (17:24)
[2019-04-02] MEDS: MORPHINE 2 MG/ML INJ IV (20:04)
[2019-04-02] MEDS: DONEPEZIL 5 MG TABLET 10 MG PO (20:27)
--- NOTE | 2019-04-02 21:08 | PC.NURSE ---
A&OX3. 98%RA. pain controlled with morphine and tylenol. Dressing intact not leaking, shadow drainage. pt voiding without difficulty, incontinent, 1-2 person assist bed mobility. encouraged pt to drink more water. Pt had some clear ensure, jello and broth for dinner. oriented pt to room. call light in reach. bed alarm active. at bedside.
[2019-04-03] VITALS (11 sets, daily range): BP systolic 116–159; BP diastolic 36–63; PULSE 68–86; RESP 16–18; TEMP 36.3–36.8; O2SAT 94–100
[2019-04-03] MEDS: ACETAMINOPHEN 325 MG TABLET 650 MG PO ×4 (00:12→17:09)
[2019-04-03] MEDS: ONDANSETRON 4 MG/2 ML INJ IV ×2 (00:18→11:33)
[2019-04-03] MEDS: SODIUM CHLORIDE 0.9% 1,000 ML 100 ML IV (01:56)
[2019-04-03] MEDS: MORPHINE 2 MG/ML INJ IV (02:44)
--- NOTE | 2019-04-03 03:00 | PC.NURSE ---
Shift note: Received pt from evening shift. AxOx3, able to make needs known and uses call light appropriately. At time of assessment patient complaining of pain to incision of 4/10, medicated per JUL with scheduled Tylenol, and nausea medicated per JUL with Zofran. Lung sounds clear to auscultation, patient is hypertensive but asymptomatic, heart rate is regular and patient is on tele. Dressing to abdomen is intact, shadow drainage is present and moved outside original outline, outlined new shadow drainage. Patient also has area of redness to coccyx and is on turns every 2 hours. Patient is incontinent and wears a brief. Pt is a moderate fall risk, bed alarm in on and functioning, call light in reach.
[2019-04-03 07:22] LABS: Add Manual Diff / Slide Review NO; Basophils Absolute Auto 100 /uL (0-100); Basophils Percent Auto 0.3 % (0-2); Eosinophils Absolute Auto 100 /uL (0-450); Eosinophils Percent Auto 0.4 % (2-4); Hematocrit 33.3 % (41-53); Hemoglobin 11.3 g/dL (13.5-17.5); Lymphocytes Absolute Auto 3100 /uL (1100-4500); Lymphocytes Percent Auto 17.6 % (25-40); Mean Corpuscular HGB Conc 33.8 % (30-36); Mean Corpuscular Hemoglobin 32.5 PG (26-34); Mean Corpuscular Volume 96.3 fL (80-100); Monocytes Absolute Auto 2700 /uL (0-900); Neutrophils Absolute Auto 11800 /uL (1500-7000); Neutrophils Percent Auto 66.7 % (50-75); Platelet Count 255 X10^3/uL (150-400); Red Blood Cell Count 3.46 X10^6/uL (4.5-5.9); Red Cell Distribution Width 13.5 % (11.6-14.8); White Blood Cell Count 17.7 X10^3/uL (4.5-11.0)
[2019-04-03 07:39] LABS: BUN Creatinine Ratio 22.5 (6-22); Blood Urea Nitrogen 27 mg/dL (9-20); Calcium 9.1 mg/dL (8.4-10.2); Carbon Dioxide 24 mmol/L (22-32); Chloride 107 mmol/L (98-107); Glucose 114 mg/dL (80-110); HEMOLYSIS < 15 (0-50); Magnesium 1.7 mg/dL (1.6-2.3); Phosphorous 3.6 mg/dL (2.3-3.7); Potassium 4.7 mmol/L (3.4-5.1); Sodium 136 mmol/L (137-145)
--- NOTE | 2019-04-03 08:04 | PM.PNPO.1 ---
Subjective Subjective Date Patient Seen: 04/03/19 Time Patient Seen: 08:04 Interval history: No acute overnight events. Pain is well controlled. Tolerating clear liquid diet without nausea vomiting or abdominal bloating. No flatus or bowel movement. Voiding spontaneously. Exam Vital Signs (past 8 hours): - 04/03/19 00:20 04/03/19 00:26 04/03/19 05:14 Temperature 98.1 F Pulse Rate 82 Respiratory Rate 17 Blood Pressure 159/36 H Pulse Oximetry 100 100 100 04/03/19 05:20 Temperature 97.3 F L Pulse Rate 70 Respiratory Rate 18 Blood Pressure 121/55 L Pulse Oximetry 100 Oxygen Delivery Method Room Air Oxygen Flow Rate 0 Narrative Exam Narrative: General adult male alert oriented no acute distress. Chest nonlabored respirations Abdomen soft appropriately tender to palpation dressings clean mild strike through Objective Labs Result Diagrams: 04/03/19 06:50 04/03/19 06:50 Labs: Laboratory Results - last 24 hr 04/03/19 04/03/19 06:50 06:50 WBC 17.7 H RBC 3.46 L Hgb 11.3 L Hct 33.3 L MCV 96.3 MCH 32.5 MCHC 33.8 RDW 13.5 Plt Count 255 Neut % (Auto) 66.7 Lymph % (Auto) 17.6 L [place] % (Auto) 15.0 H Eos % (Auto) 0.4 L Baso % (Auto) 0.3 Neut # (Auto) 44884 H Lymph # (Auto) 3100 [place] # (Auto) 2700 H Eos # (Auto) 100 Baso # (Auto) 100 Sodium 136 L Potassium 4.7 Chloride 107 Carbon Dioxide 24 BUN 27 H Creatinine 1.20 Estimated GFR 58.0 L BUN/Creatinine Ratio 22.5 H Glucose 114 H Calcium 9.1 Phosphorus 3.6 Magnesium 1.7 Assessment & Plan Post-op Postoperative Procedures: Procedures Operation Date: 04/02/19 12:15 Actual Procedures Side Surgeon p Ileostomy Reversal Tony Medrano MD Postoperative status narrative: 83-year-old male postoperative day 1 status post ileostomy reversal doing well. # postoperative ileus-continue clear liquid diet as tolerated await return of bowel function. Okay for chewing gum and encourage ambulation. # acute pain-continue scheduled Tylenol and as needed oxycodone # VTE prophylaxis-prophylactic Lovenox and SCDs
[2019-04-03] MEDS: MECLIZINE HCL 12.5 MG TABLET 25 MG PO (08:53)
[2019-04-03] MEDS: FLUoxetine 10 MG CAPSULE PO (08:53)
[2019-04-03] MEDS: CARBIDOPA-LEVODOPA 10/100 TABLET 1 EACH PO ×3 (08:53→20:21)
[2019-04-03] MEDS: ENOXAPARIN 40 MG/0.4 ML SYRINGE SUBCUT (08:53)
[2019-04-03] MEDS: MAGNESIUM SULFATE 2 GM/50 ML PIGGYBACK IV (09:04)
--- NOTE | 2019-04-03 11:05 | CM.DANOTE ---
Patient is an 83 year old male who was admitted on 04/02/19 for Post Ileostomy reversal. Pt has [facility] for insurance and his PCP is Dr. Luis Daniel Varghese. EMR was reviewed. Per Surgeon, pt with hx of recent diverticulitis requiring surgical intervention in Dec 2018 and now seems to have tolerated his reversal well and encouraging ambulation and is tolerating clear liquids and awaiting bowel movement. PT/OT ordered and pending. SW met bedside with pt and spouse/DPOA Maira and explained role and pt confirms that he last discharged from [facility] at last admit in December 2018 to [facility] and was able to successfully d/c home with [facility] and his spouse assist. Pt states that they still live on [address] with adult disabled son living nearby and other supportive son Kirk in [facility]. Pt states that he was recently discharged from [facility] services and since his return home from [facility] they have hired a private pay caregiver to assist around the house as well. Pt states that his preference is to d/c home with new [facility] referral and support from his spouse and private pay caregiver. SW requested ELENA Ramirez to fax new clinical referral to [facility] to review. SW called [facility] with new referral and they will review. Plan: SW to follow closely for PT/OT eval and recommendations to determine if pt safe for home with new HH and spouse and PP CG assist. SW to follow for [facility] review and F2F placed on chart for MD to sign. EDUARDA Chappell Discharge Planning/Care Management Advanced directive, confirm from FAMILY Start: 04/02/19 16:24 Freq: Q24H Status: Active Protocol: Document 04/02/19 17:26 HCW (Rec: 04/02/19 17:26 HCW [id number]) Advance Directive, confirm on record Time 17:26 Person contacted patient Copy received No CM Discharge Assessment Start: 04/03/19 10:46 Freq: Status: Active Protocol: Document 04/03/19 10:46 BF (Rec: 04/03/19 11:05 BF [id number]) Discharge Planning Assessment Assigned Wire Weaver Cloth BRAXTON Rodriguez DPMARIO/Assigned Designee Name Spouse Maira Contact Information [phone] Advance Directives? Yes Advance Directives on File No History Provided By Patient,Significant Other, Medical Record Has Patient been admitted in last 30 No days? Comment Last admitted in Dec 2018 and had surgery Prior Living Arrangements House Household Members spouse Type of transporation used prior to Drives own vehicle admit Comment Has adult disabled son living nearby and other son and Dtr who live out of town. Independent with ADL's Yes Is patient alert and oriented? 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 Comment Had been open with [facility] but discharged from their services recently Patient/Family Preference Home with Home Health Comment Waiting for PT/OT eval and recommendations Barriers to Discharge No Comment Will need [facility] auth after PT/OT eval if SNF recommended but pt preference is home with HH Discharge Plan Home with Home Health Community Services Physical Therapy,Occupational Therapy,Home Health Aid Transportation Arrangement Spouse bedside and can likely provide transport if safe for home Additional Comment Waiting for PT/OT eval and recommendations to determine if pt safe for d/c home with Medicare Choice List Provided Yes SNF/HH Preference [facility] Has Agency SNF been contacted Yes Whiteboard Updated in Patient Room with Yes name and ext. # of Wire Weaver Cloth Review Status In Process Please Provide Date Initial DC 04/03/19 Assessment Was Performed Next Review Type Continued Stay Review Pre-Anesthesia Assessment Start: 03/20/19 09:58 Freq: Status: Complete Protocol: Document 03/20/19 09:58 [facility] (Rec: 03/20/19 10:59 [facility] [id number]) Pre-Anesthesia Assessment Preferred Name Bret Patient Information Reviewed Via Phone Assessment Assessment Completed With Patient Primary Care Provider Luis Daniel Varghese Seen Specialist in Last 12 Months Yes Specialist Seen General surgeon Primary Language Haitian Preferred Language Haitian Height 162.56 cm Weight 61.689 kg Body Mass Index (BMI) 23.3 Hearing Ability Normal Visual Assist Glasses Dentition Type Teeth, Natural Present,Teeth, Broken,Teeth, Missing Barriers to Learning None,Memory Comment Short term memory r/t Parkinson's Hx Anesthesia Reactions No Hx Family Anesthesia Reaction No Hx Malignant Hyperthermia No Hx Blood Transfusions No Hx Blood Transfusion Reaction No Anesthesia Review Requested No 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 No Does patient have BOLDEN/SOB No Hx Sleep Apnea No CPAP/BIPAP use not prescribed Currently Taking a Beta Arjun No Can You Climb a Flight of Stairs Without No SOB Hx Chest Pain No Hx SOB No Hx Syncope or Dizziness No Anti-Coagulant Therapy No Has a Plastic Eye Technician No Cardiac Testing No Hx Pacemaker/ICD No Pacemaker Rep Required? No Cardiac Clearance Received Not Applicable Diet Type At Home Regular dysphagia No Comment Avoid foods that cause gas r/t colostomy Bladder Pattern Incontinent Urinary Catheter Present No Hx Urinary Self Catheterization No Diabetes No Presence of External or Internal Medical Yes: Right leg sue, left hip Devices prosthesis, colostomy Have you traveled outside the [facility] in the last 30 days? Marital Status Lives With spouse Prior Living Arrangements House Number of Floors (Floors) Two Floors Support System Caregiver,Child/Children, Spouse Patient Discharge Plan Description Return Home,Care Home Facility/Rehab Comment Pt not advised on length of stay per surgeon, lives on [address] Feels Safe in Current Environment Yes Been Physically Hurt or Threatened By a No Person in Current Environment Do you have thoughts of harming yourself None or others? Are you currently considering suicide? No Do you have a plan to hurt yourself or No Plan others? Do You Have Any Spiritual Beliefs That No May Affect Your HC Choices? Do You Have Any Cultural Practices That No May Affect Your HC Choices? Comment Epis Who Can We Speak to About Patient's Care Family, friends Identifying Code for Release of Patient Declines to issue Information Health Care Proxy/Next of Kin Maira () Health Care Proxy Phone Number C:[phone], H:[phone] Kirk [phone] (son) Emergency Contact Name MAIRA BRIONES - Emergency Contact Phone Number C:[phone] H:[phone] Kirk [phone] (son) Advance Directives? Yes Advance Directives on File No Power of Extractions Technologist Yes Power of Extractions Technologist Name MAIRA BRIONES Power of Extractions Technologist Phone Number [phone] PAC Instructions Medications to take/avoid,No ETOH/petroleum product on skin DOS,NPO,Post-op transportation,Sturdy shoes/ comfortable clothes
--- NOTE | 2019-04-03 11:17 | PT.IIE ---
Current Diagnoses Encounter for attention to ileostomy (04/02/19) Surgery Performed Operation Date: 04/02/19 12:15 Actual Procedures p Ileostomy Reversal - Tony Medrano MD Surgical History (Last Reviewed 03/27/19 @ 11:48 by Tony Medrano MD) History of left hip replacement (Acute) Hx of colectomy (Acute 12/12/18) Status post left shoulder hemiarthroplasty (Acute 11/01/18) Medical History (Last Reviewed 03/27/19 @ 11:48 by Tony Medrano MD) Anemia (Acute) Cholelithiasis (Acute) Colovesical fistula (Acute) Compression fracture of L1 vertebra (Acute) Fall (Acute) Gastroesophageal reflux (Acute) Hypertension (Acute) Pubic ramus fracture (Acute) Right femoral fracture (Acute) Sigmoid diverticulitis (Acute) Physical Therapy Inpatient Evaluation/Re-Eval M1 PT/OT-IP Prior Functional Status Start: 04/03/19 12:30 Freq: NEEDED Status: Active Protocol: Document 04/03/19 11:17 AB (Rec: 04/03/19 12:45 AB [id number]) Medical Review Prior Functional Status Medical History Reviewed Yes Communication able to make needs known Mobility and Gait pt stated that he is modified independent bed mobility, transfers. usually uses a manual w/c for mobiltiy but able to ambulate ~ 50-100 ft using FWW with SBA. pt stated that he had previous hip fractures and just prefer not to walk much for safety. pt uses FWW for transfers Activities of Daily Living and IADL's needs assist with showers Social History Household Members spouse Living Arrangements House Number of Floors (Floors) Two Floors Number of Stairs To Enter/Railing? pt stays on main level of the house and has a ramp to enter Home Environment High Toilet,Walk in Shower, Ramp Home Equipment Front Wheel Walker,Four Wheel Walker,Straight Cane,Manual Wheelchair,Raised Toilet Seat w/Armrests,Shower Seat with Backrest,Hand Held Shower,Grab Bars Near Toilet,Grab Bars In Shower Employment Status Retired Additional Social History Comment pt stated that there is a caregiver that comes in to assist him. hours varies but received ~ 30 hours/month. M2 PT-IP Current Condition Start: 04/03/19 12:30 Freq: NEEDED Status: Active Protocol: Document 04/03/19 11:17 AB (Rec: 04/03/19 12:45 AB [id number]) Physical Therapy Current Condition Current Condition Evaluation Date 04/03/19 Treatment Diagnosis s/p ileostomy reversal; generalized weakness Onset Date 04/02/19 Precautions Abdominal Surgery Precautions Log Roll,Lifting Restrictions, Gait Belt above Incisional Area M3 PT-IP Subjective Start: 04/03/19 12:30 Freq: NEEDED Status: Active Protocol: Document 04/03/19 11:17 AB (Rec: 04/03/19 12:45 AB [id number]) Subjective Physical Therapy Visit Type Type Initial Evaluation Visit Start Time 11:17 Visit Stop Time 11:41 Total Visit Minutes 24 Number of CRIME DATA SPECIALIST Visits 0 Physical Therapy Visit Comments Patient Comments pt agreeable to do PT Therapy Pain Assessment Pain When Pain Assessed At Rest Pain Present Pain Present Pain Reported Location Abdomen Intensity 4 Scale Used Numeric (1 - 10) M4 PT-IP Mobility and Gait Start: 04/03/19 12:30 Freq: NEEDED Status: Active Protocol: Document 04/03/19 11:17 AB (Rec: 04/03/19 12:45 AB [id number]) PT-Bed Mobility Assessment Supine to Sit Supine to Sit Minimal Assistance,1 Person Assistance,Bedrails Scooting Scooting to Edge of Bed Minimal Assistance PT-Transfer Assessment Sit to and From Stand Sit to and from Stand Contact Guard Assistance,1 Person Assistance Equipment Transfer Assistive Device Gait Belt,Front Wheeled Walker Orthotic/Prosthetic Devices or Brace: No Transfers Transfer Destination Chair Transfer Technique Stand Step Pivot Transfer Ability Level of Assist Minimal Assistance,1 Person Assistance,Use of Upper Extremities Gait Assessment Gait Gait Assistance Required: Minimum Assistance Distance (Feet) 25 Able to Maintain Weight Bearing Status Yes During Gait Assistive Devices Assistive Device Gait Belt,Front Wheeled Walker Gait Deviations General Gait Pattern Decreased Stride Length, Decreased Feet Clearance, Flexed Trunk,Step-to Gait Factors Limiting Gait Function Factors Limiting Gait Function Decreased Activity Tolerance, Decreased Strength,Limited Range of Motion,Pain,Poor Balance,Poor Safety Awareness Comments Gait Comments pt ambulated in room using fWW ~ 25 ft min A and cues. c/o feeling tired after ambulation . agreed to stay up on chair. call light and table placed within reach. PT-Balance Assessment Sitting Balance and Reactions Static Sitting Balance Ability Good Dynamic Sitting Balance Ability Fair Standing Balance and Reactions Static Standing Balance Ability Fair Dynamic Standing Balance Ability Fair Device Used FWW M5 PT-IP Objective Assessments Start: 04/03/19 12:30 Freq: NEEDED Status: Active Protocol: Document 04/03/19 11:17 AB (Rec: 04/03/19 12:45 AB [id number]) Orientation Orientation/Cognition Level of Alertness Alert Orientation Name Safety Awareness Decreased Safety Awareness Gross Range of Motion Lower Extremity ROM Assessment Within Functional Limits Strength Lower Extremity Strength Hip 4-/5 Knee 3+/5 Ankle 4-/5 Coordination Assessment Gross Coordination Gross Coordination WNL Muscle Tone Muscle Tone WNL Yes M6 PT-IP Treatment Start: 04/03/19 12:30 Freq: NEEDED Status: Active Protocol: Document 04/03/19 11:17 AB (Rec: 04/03/19 12:45 AB [id number]) Physical Therapy Treatment Education Education Provided Precautions,Safety M7 PT-IP Assessment and Plan Start: 04/03/19 12:30 Freq: NEEDED Status: Active Protocol: Document 04/03/19 11:17 AB (Rec: 04/03/19 12:45 AB [id number]) PT Summary Assessment and Plan Potential Rehabilitation Potential Good Status of Condition at Evaluation Stable Summary Impairments Pain,ROM,Strength,Balance, Coordination,Sensation,Tone, Cognition,Bed Mobility, Transfers,Gait,Activity Tolerance Assessment Summary Pt requiring min A with mobility at this time but will likely improve during hospital stay. pt will have his spouse and caregiver to assist him at home. will continue to assess pt's progress. Goals Bed Mobility Goal Independent Transfer Goal Independent,Front Wheeled Walker Gait Goal Standby Assistance,Front Wheel Walker Gait Distance 100 Days to Meet Goals 10 Frequency of Treatment Frequency Of Treatment Once a Day Treatment Plan Physical Therapy Treatment Plan Bed Mobility Training,Transfer Training,Gait Training, Therapeutic Exercise,Balance Retraining,Post Op Education, Discharge Planning,Hot or Cold Pack,Neuromuscular Re-ed Other Recommendations and Next Treatment ambulation Focus Recommendations To Nursing Amount of Assist Needed 1 Person Assist Discharge Recommendations PT Discharge Recommendations Home with Assistance,Home with 24/ Assist,Home Health
[2019-04-03] MEDS: DONEPEZIL 5 MG TABLET 10 MG PO (20:21)
--- NOTE | 2019-04-03 22:30 | PC.NURSE ---
Pt tolerated his regular diet. drinking liquids. pain controlled with tylenol. denied any abdominal cramping or bloating. pt passed gas, no bowel movement. pt ambulated in hallways. incontinent 1person assist. call light in reach. bed alarm active.
[2019-04-04] VITALS (14 sets, daily range): BP systolic 112–144; BP diastolic 51–70; PULSE 70–101; RESP 14–18; TEMP 36.2–37.5; O2SAT 94–98
[2019-04-04] MEDS: ACETAMINOPHEN 325 MG TABLET 650 MG PO ×5 (00:09→23:27)
[2019-04-04] MEDS: MECLIZINE HCL 12.5 MG TABLET 25 MG PO (09:02)
[2019-04-04] MEDS: FLUoxetine 10 MG CAPSULE PO (09:02)
[2019-04-04] MEDS: CARBIDOPA-LEVODOPA 10/100 TABLET 1 EACH PO ×3 (09:02→20:49)
[2019-04-04] MEDS: ENOXAPARIN 40 MG/0.4 ML SYRINGE SUBCUT (09:03)
[2019-04-04] MEDS: SODIUM CHLORIDE 0.9% FLUSH 10 ML IV ×2 (09:06→20:50)
--- NOTE | 2019-04-04 11:11 | PT.IPTN ---
This is to certify that I have reviewed this documentation and is involved with this pt's care. Current Diagnoses Encounter for attention to ileostomy (04/02/19) Surgery Performed Operation Date: 04/02/19 12:15 Actual Procedures p Ileostomy Reversal - Tony Medrano MD Physical Therapy Treatment Note M2 PT-IP Current Condition Start: 04/03/19 12:30 Freq: NEEDED Status: Active Protocol: Document 04/03/19 11:17 AB (Rec: 04/03/19 12:45 AB [id number]) Physical Therapy Current Condition Current Condition Evaluation Date 04/03/19 Treatment Diagnosis s/p ileostomy reversal; generalized weakness Onset Date 04/02/19 Precautions Abdominal Surgery Precautions Log Roll,Lifting Restrictions, Gait Belt above Incisional Area M3 PT-IP Subjective Start: 04/03/19 12:30 Freq: NEEDED Status: Active Protocol: Document 04/04/19 11:11 MT (Rec: 04/04/19 13:23 MT [email or web address]) Subjective Physical Therapy Visit Type Type Treatment Note Visit Start Time 11:11 Visit Stop Time 11:29 Total Visit Minutes 18 Number of WAITER/WAITRESS TOURIST CLASS Visits 0 Physical Therapy Visit Comments Patient Comments pt was tired from walking with the aide this morning, but was agreeable to do PT M4 PT-IP Mobility and Gait Start: 04/03/19 12:30 Freq: NEEDED Status: Active Protocol: Document 04/04/19 11:11 MT (Rec: 04/04/19 13:23 MT [email or web address]) PT-Transfer Assessment Sit to and From Stand Sit to and from Stand Standby Assistance,Contact Guard Assistance,1 Person Assistance,Use of Upper Extremities Equipment Transfer Assistive Device Gait Belt,Front Wheeled Walker Orthotic/Prosthetic Devices or Brace: No Transfers Transfer Destination Chair,Wheelchair Transfer Technique sit to stand to initiate ambulation Transfer Ability Level of Assist Standby Assistance,Contact Guard Assistance,1 Person Assistance,Use of Upper Extremities Comments Mobility Comments Pt was found sitting in chair. He performed sit to stand with CGA and use of 2WW to initiate amulation. During ambulation he took frequent breaks with sitting in the wheelchair CGA to SBA with 2WW. He required cueing for scooting forward in chair first and leaning forward in order to stand up from chair. Gait Assessment Gait Gait Assistance Required: Contact Guard Assist Distance (Feet) 50 Able to Maintain Weight Bearing Status Yes During Gait Assistive Devices Assistive Device Gait Belt,Front Wheeled Walker Orthotic/Prosthetic Devices or Brace: No Gait Deviations General Gait Pattern Decreased Stride Length, Decreased Feet Clearance, Flexed Trunk,Step-to Gait Factors Limiting Gait Function Factors Limiting Gait Function Decreased Activity Tolerance, Decreased Strength,Limited Range of Motion,Pain,Poor Balance,Poor Safety Awareness Comments Gait Comments Pt ambulated in room and in hallway with CGA and 2WW. He required cueing for safety and to increase step legnth with his right foot. He ambulated about 250 feet throughout the hallway, requiring 5 sitting breaks throughout. the max distance that he walked was about 50 feet before requiring rest break. He reported that he was feeling dizzy, which would resolve with deep breathing and either a standing or sitting rest break . Pt's blood pressure after gait was 137/67. Pt had no complaints of dizziness at end of treatment session. M5 PT-IP Objective Assessments Start: 04/03/19 12:30 Freq: NEEDED Status: Active Protocol: Document 04/03/19 11:17 AB (Rec: 04/03/19 12:45 AB [id number]) Orientation Orientation/Cognition Level of Alertness Alert Orientation Name Safety Awareness Decreased Safety Awareness Gross Range of Motion Lower Extremity ROM Assessment Within Functional Limits Strength Lower Extremity Strength Hip 4-/5 Knee 3+/5 Ankle 4-/5 Coordination Assessment Gross Coordination Gross Coordination WNL Muscle Tone Muscle Tone WNL Yes M6 PT-IP Treatment Start: 04/03/19 12:30 Freq: NEEDED Status: Active Protocol: Document 04/04/19 11:11 MT (Rec: 04/04/19 13:23 MT [id number]) Physical Therapy Treatment Education Education Provided Safety M7 PT-IP Assessment and Plan Start: 04/03/19 12:30 Freq: NEEDED Status: Active Protocol: Document 04/04/19 11:11 MT (Rec: 04/04/19 13:23 MT [email or web address]) PT Summary Assessment and Plan Potential Rehabilitation Potential Good Status of Condition at Evaluation Stable Summary Impairments Pain,ROM,Strength,Balance, Coordination,Sensation,Tone, Cognition,Bed Mobility, Transfers,Gait,Activity Tolerance Progress Towards Goals Slow Progress due to Activity Tolerance Assessment Summary Pt requires CGA with transfers and mobility and use of 2WW. He requires frequent cueing for safety. He requires frequent standing or sitting rest breaks. Pt is slowly improving his activity tolerance and stability during gait and will require assistance at home for discharge. pt's progress will continue to be assessed. Goals Bed Mobility Goal Independent Transfer Goal Independent,Front Wheeled Walker Gait Goal Standby Assistance,Front Wheel Walker Gait Distance 100 Days to Meet Goals 10 Frequency of Treatment Frequency Of Treatment Once a Day Treatment Plan Physical Therapy Treatment Plan Bed Mobility Training,Transfer Training,Gait Training, Therapeutic Exercise,Balance Retraining,Post Op Education, Discharge Planning,Hot or Cold Pack,Neuromuscular Re-ed Other Recommendations and Next Treatment ambulation Focus Recommendations To Nursing Amount of Assist Needed 1 Person Assist Discharge Recommendations PT Discharge Recommendations Home with Assistance,Home with / Assist,Home Health
--- NOTE | 2019-04-04 14:12 | PM.PNPO.1 ---
Subjective Subjective Date Patient Seen: 04/04/19 Time Patient Seen: 14:12 Interval history: No acute overnight events. He had several episodes of flatus and was advanced to a regular diet last night. No bowel movement. Pain is well control on oral medication. Exam Vital Signs (past 8 hours): - 04/04/19 06:36 04/04/19 08:00 04/04/19 10:13 Temperature 99.1 F Pulse Rate 85 Respiratory Rate 18 Blood Pressure 128/55 L Pulse Oximetry 96 94 95 04/04/19 11:41 04/04/19 12:57 04/04/19 13:37 Temperature 98.4 F 99.5 F 98.1 F Pulse Rate 101 H 99 H 89 Respiratory Rate 14 16 16 Blood Pressure 128/70 127/65 117/62 Pulse Oximetry 97 97 98 Oxygen Delivery Method Room Air Oxygen Flow Rate 0 Narrative Exam Narrative: General adult male alert oriented no acute distress Chest nonlabored respiration Abdomen dressing removed [place] removed from the ostomy closure site clean dry intact with damaris Objective Labs Result Diagrams: 04/03/19 06:50 04/03/19 06:50 Assessment & Plan Post-op Postoperative Procedures: Procedures Operation Date: 04/02/19 12:15 Actual Procedures Side Surgeon p Ileostomy Reversal Tony Medrano MD Postoperative status narrative: 83-year-old male postoperative day 2 status post ileostomy reversal doing well. Has return of bowel function now tolerating a regular diet. -discontinue IV fluid -regular diet -discharge home when tolerating regular diet and having bowel movements. -ambulate -Lovenox for VT prophylaxis
[2019-04-04] MEDS: INFLUENZA HD VACCINE 0.5 ML SYRINGE IM (18:23)
[2019-04-04] MEDS: DONEPEZIL 5 MG TABLET 10 MG PO (20:48)
[2019-04-05] VITALS (9 sets, daily range): BP systolic 119–137; BP diastolic 54–64; PULSE 78–113; RESP 14–18; TEMP 36.3–37.3; O2SAT 94–98
[2019-04-05] MEDS: ACETAMINOPHEN 325 MG TABLET 650 MG PO ×3 (05:52→17:07)
--- NOTE | 2019-04-05 08:33 | CM.DPC ---
Addendum entered by Elizabeth Reilly LPN 04/05/19 15:20: Spoke with PT Osmani Nick Óscar) after his session with pt. He reported that he did work with pt today and thought that he would be appropriate for home setting with the prn support of his and caregiver. Explained that pt did NOT have 24 hour physical assist and he said he understood this but agreed with pt that he should do ok in the home setting once his stooling is stablized. PT and OT will continue to work with pt and the DCP team will follow up. P: pt hopeful for home with [facility] services, and caregiver....follow Addendum entered by Elizabeth Reilly LPN 04/05/19 11:09: Spoke with Dr. Duarte. She reports that pt is stooling with multiple loose bowel movements and this needs to normalize before pt will be ready for d/c. She also said that the PT note gives recommendation for home with 24/7 assist which pt does not have and that she will not at this time agree to HH orders unless pt has the 24/7 care or if he improves by time he is ready to go home. She is aware that pt wishes to go to the home setting with the care that he currently has but that she cannot agree that this is safe. She says that Dr. Alonso will be rounding for surgery tomorrow and will reassess. Did obtain an OT order to help in the assessment process. Have spoken now with PT Edel re above. She will discuss with PT team and they will focus on working with pt to help him become a bit more independent. Original Note: DCP: continued: case received, EMR reviewed. Face/Face document for HH is found on hard copy chart and remains blank. Met with pt and his in followup after first calling [facility]. Roberto has accepted the referral (and had d/c'd pt from services about a week ago). RN/OT/PT had been seeing pt and pt and his would like these disciplines again. Pt confirms that he has hired a caregiver who does had been helping manage the ileostomy process but will continue on for prn assist and including helping pt with bill paying. Pt's if rooming in, will drive pt back home at d/c. Dr. Medrano indicated in yesterday's progress note that pt will go home when he is managing a regular diet and having regular BMs. He does appear to be moving quickly toward these goals. PT is working with him and he is mobilizing in halls at a CGA level. 250+ feet. Spoke with SUGEY Diaz. She reports that Dr. Duarte is rounding for surgery today. Will attempt to get F/F completed with her and HH orders. DCP will be following: P: home when stable for same with [facility]. Pt and his live on [address]: [facility] is the only HH agency servicing that area.
[2019-04-05] MEDS: ENOXAPARIN 40 MG/0.4 ML SYRINGE SUBCUT (09:46)
[2019-04-05] MEDS: SODIUM CHLORIDE 0.9% FLUSH 10 ML IV ×2 (09:46→20:22)
[2019-04-05] MEDS: FLUoxetine 10 MG CAPSULE PO (09:46)
[2019-04-05] MEDS: MECLIZINE HCL 12.5 MG TABLET 25 MG PO (09:46)
[2019-04-05] MEDS: CARBIDOPA-LEVODOPA 10/100 TABLET 1 EACH PO ×3 (09:46→21:10)
[2019-04-05] MEDS: ONDANSETRON 4 MG ODT PO (09:56)
--- NOTE | 2019-04-05 11:06 | P.PN_ITS ---
Subjective Subjective Date Patient Seen: 04/05/19 Time Patient Seen: 11:10 Interval history: No acute events overnight. The patient is passing liquid stool, and is unable to control it. He has ambulated with PT, but he is not deemed safe for independent ambulation, and they are recommending 24/7 assistance at home. Exam Vital Signs (past 8 hours): - 04/05/19 03:07 04/05/19 04:20 04/05/19 07:00 Temperature 97.4 F L Pulse Rate 78 Respiratory Rate 16 Blood Pressure 128/56 L Pulse Oximetry 96 96 97 04/05/19 08:00 Temperature 98.4 F Pulse Rate 92 H Respiratory Rate 18 Blood Pressure 125/54 L Pulse Oximetry 97 Oxygen Delivery Method Room Air Oxygen Flow Rate 0 Narrative Exam Narrative: GENERAL: Alert, comfortable. Appears stated age. Answers questions promptly and appropriately. HENT: Normocephalic, atraumatic. Hearing intact. Oral mucosa is pink and moist. EYES: Conjunctiva pink, sclera white, no periorbital swelling. CARDIOVASCULAR: Regular rate. No pedal edema. RESPIRATORY: Non tachypneic, breathing comfortably on room air. GASTROINTESTINAL: Abdomen soft, mildly distended, mildly tender to palpation at incision site, surgical incision is clean/dry/intact GENITALURINARY: No flank tenderness. MUSCULOSKELETAL: Equal tone and mass bilaterally. SKIN: Warm, dry, soft, appropriate color for ethnicity. No other lesions, rashes, or wounds. NEURO: Alert and Oriented X 3. No gross sensory deficits, or cognitive issues. PSYCH: Appropriate affect and mood. Objective Labs Result Diagrams: 04/03/19 06:50 04/03/19 06:50 Assessment & Plan Assessment and plan (1) Incontinence of feces with fecal urgency: Current visit: Yes Status: Acute (2) Need for assistance due to unsteady gait: Current visit: Yes Status: Acute Assessment & Plan narrative: This is an 83-year-old man who is postop day 3 status post ileostomy takedown. He started having bowel movements yesterday, but they are completely liquid and uncontrollable. This is not unexpected after ileostomy takedown, and his colon now passing stool for the 1st time in several months. It will take several weeks for his colon to upper regulate so that the stool can be adequately controlled. However, with some medication adjustments we may be able to improve things adequately for him to manage at home. He also has been evaluated by physical therapy due to his weakness and and steady gait. They say that even with his walker he needs constant assistance for safety. He currently cannot safely managed at home because of his stool urgency, incontinence, and dependence for ambulation. The patient feels he is stronger, and should not need 24 hours assistance. However, he does not feel he is able to manage his stool incontinence at home. We will ask physical therapy to re- evaluate the patient today. We will add a fiber to bulk up his bowel movements, and a probiotic today. If we can get him safer for home, he may be able to go home this weekend. Plan: PTT to re-evaluate today Metamucil b.i.d. Probiotic b.i.d. Time Spent With Patient Time with patient: 25 - 35 minutes Quality VTE Deep Vein Thrombosis/Pulmonary Embolism Present on Admission: No
[2019-04-05] MEDS: LACTOBACILLUS ACIDOPHILUS TABLET 1 EACH PO ×2 (11:47→17:07)
[2019-04-05] MEDS: PSYLLIUM HUSK 1 PACKET PO ×2 (11:47→21:10)
--- NOTE | 2019-04-05 12:06 | PT.IPTN ---
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) Other abnormalities of gait and mobility (04/02/19) Encounter for attention to ileostomy (04/02/19) Surgery Performed Operation Date: 04/02/19 12:15 Actual Procedures p Ileostomy Reversal - Tony Medrano MD Physical Therapy Treatment Note M2 PT-IP Current Condition Start: 04/03/19 12:30 Freq: NEEDED Status: Active Protocol: Document 04/03/19 11:17 AB (Rec: 04/03/19 12:45 AB [id number]) Physical Therapy Current Condition Current Condition Evaluation Date 04/03/19 Treatment Diagnosis s/p ileostomy reversal; generalized weakness Onset Date 04/02/19 Precautions Abdominal Surgery Precautions Log Roll,Lifting Restrictions, Gait Belt above Incisional Area M3 PT-IP Subjective Start: 04/03/19 12:30 Freq: NEEDED Status: Active Protocol: Document 04/05/19 11:35 HH (Rec: 04/05/19 12:06 [id number]) Subjective Physical Therapy Visit Type Type Treatment Note Visit Start Time 11:35 Visit Stop Time 11:50 Total Visit Minutes 15 Notes Pt is amb with PROJECT EXECUTIVE upon assessment. Number of MARKET GARDEN WORKER Visits 0 Physical Therapy Visit Comments Patient Comments Im feeling better today M4 PT-IP Mobility and Gait Start: 04/03/19 12:30 Freq: NEEDED Status: Active Protocol: Document 04/05/19 11:35 HH (Rec: 04/05/19 12:06 [id number]) PT-Transfer Assessment Sit to and From Stand Sit to and from Stand Standby Assistance,Contact Guard Assistance,1 Person Assistance,Use of Upper Extremities Equipment Transfer Assistive Device Gait Belt,Front Wheeled Walker Orthotic/Prosthetic Devices or Brace: No Transfers Transfer Destination Chair Transfer Technique with FWW Transfer Ability Level of Assist Standby Assistance,Contact Guard Assistance,1 Person Assistance,Use of Upper Extremities Comments Mobility Comments Pt was ambulating with PROJECT EXECUTIVE in the hallway. PT then took over and cont amb. Pt cont to amb with small step to pattern, along with flexed trunk position. Pt took multiple standing breaks for every 10 feet due to c/o weakness. Pt completed 50 feet in total and returned to bedside chair. Pt was able to turn and backward walk for 2 feet to chair. He demonstrated safe descent with proper hand placements. Gait Assessment Gait Gait Assistance Required: Contact Guard Assist Distance (Feet) 50 Able to Maintain Weight Bearing Status Yes During Gait Assistive Devices Assistive Device Gait Belt,Front Wheeled Walker Orthotic/Prosthetic Devices or Brace: No Gait Deviations General Gait Pattern Decreased Stride Length, Decreased Feet Clearance, Flexed Trunk,Step-to Gait Factors Limiting Gait Function Factors Limiting Gait Function Decreased Activity Tolerance, Decreased Strength,Limited Range of Motion,Pain,Poor Balance,Poor Safety Awareness Comments Gait Comments cont to demonstrate short step length due to weakness. Needed cues to reduce trunk flexion. M5 PT-IP Objective Assessments Start: 04/03/19 12:30 Freq: NEEDED Status: Active Protocol: Document 04/03/19 11:17 AB (Rec: 04/03/19 12:45 AB [id number]) Orientation Orientation/Cognition Level of Alertness Alert Orientation Name Safety Awareness Decreased Safety Awareness Gross Range of Motion Lower Extremity ROM Assessment Within Functional Limits Strength Lower Extremity Strength Hip 4-/5 Knee 3+/5 Ankle 4-/5 Coordination Assessment Gross Coordination Gross Coordination WNL Muscle Tone Muscle Tone WNL Yes M6 PT-IP Treatment Start: 04/03/19 12:30 Freq: NEEDED Status: Active Protocol: Document 04/04/19 11:11 MT (Rec: 04/04/19 13:23 MT [id number]) Physical Therapy Treatment Education Education Provided Safety M7 PT-IP Assessment and Plan Start: 04/03/19 12:30 Freq: NEEDED Status: Active Protocol: Document 04/05/19 11:35 HH (Rec: 04/05/19 12:06 HH [id number]) PT Summary Assessment and Plan Potential Rehabilitation Potential Good Status of Condition at Evaluation Stable Summary Impairments Pain,ROM,Strength,Balance, Coordination,Sensation,Tone, Cognition,Bed Mobility, Transfers,Gait,Activity Tolerance Progress Towards Goals Slow Progress due to Activity Tolerance Assessment Summary Pt cont requires CGA with transfers and mobility and use of 2WW. He requires frequent standing or sitting rest breaks for every 10 feet. Pt is slowly improving his activity tolerance and stability during gait and will require assistance at home for discharge. Pt stated he feels ready to d/c home this time with home health, along with and CG's assistance. Goals Bed Mobility Goal Independent Transfer Goal Independent,Front Wheeled Walker Gait Goal Standby Assistance,Front Wheel Walker Gait Distance 100 Days to Meet Goals 10 Frequency of Treatment Frequency Of Treatment Once a Day Treatment Plan Physical Therapy Treatment Plan Bed Mobility Training,Transfer Training,Gait Training, Therapeutic Exercise,Balance Retraining,Post Op Education, Discharge Planning,Hot or Cold Pack,Neuromuscular Re-ed Other Recommendations and Next Treatment ambulation Focus Recommendations To Nursing Amount of Assist Needed 1 Person Assist Discharge Recommendations PT Discharge Recommendations Home with Assistance,Home Health
--- NOTE | 2019-04-05 15:28 | OT.IP.EVAL ---
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) Other abnormalities of gait and mobility (04/02/19) Encounter for attention to ileostomy (04/02/19) Surgery Performed Operation Date: 04/02/19 12:15 Actual Procedures p Ileostomy Reversal - Tony Medrano MD Past Medical History (Last Reviewed 03/27/19 @ 11:48 by Tony Medrano MD) Anemia (Acute) Cholelithiasis (Acute) Colovesical fistula (Acute) Compression fracture of L1 vertebra (Acute) Fall (Acute) Gastroesophageal reflux (Acute) Hypertension (Acute) Pubic ramus fracture (Acute) Right femoral fracture (Acute) Sigmoid diverticulitis (Acute) Surgical History (Last Reviewed 03/27/19 @ 11:48 by Tony Medrano MD) History of left hip replacement (Acute) Hx of colectomy (Acute 12/12/18) Status post left shoulder hemiarthroplasty (Acute 11/01/18) Occupational Therapy Inpatient Evaluation/Re-Eval M1 PT/OT-IP Prior Functional Status Start: 04/05/19 16:07 Freq: NEEDED Status: Active Protocol: Document 04/05/19 15:58 [facility] (Rec: 04/05/19 16:45 [facility] [id number]) Medical Review Prior Functional Status Medical History Reviewed Yes Communication able to make needs known Mobility and Gait Per PT eval,pt stated that he is modified independent bed mobility, transfers. Usually uses a manual w/c for mobiltiy but able to ambulate ~ 50-100 ft using FWW with SBA. pt stated that he had previous hip fractures and just prefer not to walk much for safety. pt uses FWW for transfers Activities of Daily Living and IADL's Needs assist with showers, and getting on socks and shoes. Pt states mainly just transfers from wc to toilet as has another walker in the bathroom. Social History Household Members spouse Living Arrangements House Number of Floors (Floors) Two Floors Number of Stairs To Enter/Railing? pt stays on main level of the house and has a ramp to enter Home Environment High Toilet,Walk in Shower, Ramp Home Equipment Front Wheel Walker,Four Wheel Walker,Straight Cane,Manual Wheelchair,Raised Toilet Seat w/Armrests,Shower Seat with Backrest,Hand Held Shower,Grab Bars Near Toilet,Grab Bars In Shower Employment Status Retired Additional Social History Comment pt stated that there is a caregiver that comes in to assist him. hours varies but received ~ 30 hours/month. M2 OT-IP Current Condition Start: 04/05/19 16:07 Freq: Status: Active Protocol: Document 04/05/19 15:58 [facility] (Rec: 04/05/19 16:45 [facility] [id number]) Occupational Therapy Current Condition Current Condition Evaluation Date 04/05/19 Treatment Diagnosis Ileostomy reversal, decreased mobility Diagnosis Onset Date 04/02/19 Weight Bearing Status Weight Bearing Status Weight Bear as Tolerated M3 OT- IP Subjective and Pain Start: 04/05/19 16:07 Freq: Status: Active Protocol: Document 04/05/19 15:58 [facility] (Rec: 04/05/19 16:45 [facility] [email or web address]) OT- Subjective Occupational Therapy Visit Type Type Initial Evaluation Visit Start Time 15:28 Visit Stop Time 15:58 Total Visit Minutes 30 Occupational Therapy Visit Comments Patient Comments Pt wanting to try to shower. Patient/Caregiver Goals To go home when medically stable. OT Pain Assessment Pain When Pain Assessed At Rest Pain Present Pain Present Pain Reported Location Abdomen Intensity 3 Scale Used Numeric (1 - 10) M4 OT- IP ADL's Start: 04/05/19 16:07 Freq: Status: Active Protocol: Document 04/05/19 15:58 [facility] (Rec: 04/05/19 16:45 [facility] [id number]) OT ADL-Grooming General Evaluation Grooming Ability Standby Assistance Areas Needing Assistance Retrieving/Set-up of Grooming Items Comments OT Grooming Comments Pt able to do after set-up from recliner to wash his face and hands. OT ADL-Dressing General Eval Lower Body Dressing Ability Maximum Assistance Areas Needing Assistance Underpants/Brief Comments OT Dressing Comments Assist to sarabjit brief over his feet and up over his hips while giving him JUAN to stand with FWW. OT ADL-Toileting General Evaluation Toileting Ability Maximum Assistance Areas Needing Assistance Manage Clothing,Perform Perineal Hygiene Comments OT Toileting Comments Pt incontinent of bowel. OT ADL-Bathing Bathing Type Bathing Type Sponge Bath General Evaluation Bathing Ability Moderate Assistance Areas Needing Assistance Wash/Dry Back,Wash/Dry Perineal Area Comments OT Bathing Comments Pt too tired to try to shower today and needing assist to wash/dry pericare and back. To try to shower tomorrow morning pending how pt feels. Pt states usually does better in the AM. M5 OT- IP IADL's Start: 04/05/19 16:07 Freq: Status: Active Protocol: Document 04/05/19 15:58 [facility] (Rec: 04/05/19 16:45 [facility] [id number]) OT-Instrumental Activities of Daily Living Meal Preparation Meal Preparation Caregiver Provides Assist Diesel Locomotive Engineer Diesel Locomotive Engineer Caregiver Provides Assist Driving Driving Caregiver Provides Assist M6 OT- IP Functional Cognition Start: 04/05/19 16:07 Freq: Status: Active Protocol: Document 04/05/19 15:58 [facility] (Rec: 04/05/19 16:45 [facility] [id number]) Cognitive Factors Limiting Selfcare Function Cognitive Ability Level of Alertness Alert Patient Orientation Name,Place,Situation Attention Span Ability Capable of Focused Attention, Capable of Sustained Attention Ability to Follow Commands Able to Follow One Step Commands Memory Description Short Term Impaired Safety Awareness Underestimates Need for Assistance Cognitive Comments Cognitive Assessment Comments VC for safety awareness, vc to scoot forwards first before coming to stand and reaching back with his arms before sitting down. OT- Vision and Hearing OT- Hearing Assessment OT- Hearing Assessment WFL OT- Vision Assessment Visual Acuity Glasses For Reading Vision Assessment Comments Pt able to read the clock accurately. M7 OT- IP Mobility and Balance Start: 04/05/19 16:07 Freq: Status: Active Protocol: Document 04/05/19 15:58 [facility] (Rec: 04/05/19 16:45 [facility] [id number]) OT- Bed Mobility Assessment Supine to Sit Supine to Sit Assist Contact Guard Assistance,1 Person Assistance OT-Transfer Assessment Sit to and From Stand Sit to and from Stand Contact Guard Assistance, Minimal Assistance Transfers Transfer Ability Contact Guard Assistance Technique Transfer Destination Bed,Chair Transfer Technique Stand Step Pivot Devices Transfer Assistive Devices Gait Belt,Front Wheeled Walker Comments Mobility Comments Pt needing more assist to stand when tired as times MODA to stand. Once up JUAN with FWW. Pt only able to tolerate transfer to the recliner and too tired to attempt to shower at this time. OT- Balance Assessment Sitting Balance and Reactions Static Sitting Balance Ability Good Dynamic Sitting Balance Ability Fair Standing Balance and Reactions Static Standing Balance Ability Poor Comments Other Balance Tests/Deviations/Treatment Pt tends to lean into lateral : tilt to the right and needing reminders to sit to midline. Pt when coming to stand tends to have his weight on his heels and leaning back into posterior tilt and needing assist to help stand upright with FWW. M8 OT- IP Objective Assessments Start: 04/05/19 16:07 Freq: Status: Active Protocol: Document 04/05/19 15:58 [facility] (Rec: 04/05/19 16:45 [facility] [id number]) OT Gross Range of Motion Upper Extremity Range of Motion Assessment Within Functional Limits OT Strength Comments Strength Comments BUE 4/ OT-Muscle Tone Assessment Muscle Tone WNL Yes M9 OT- IP Assessment and Plan Start: 04/05/19 16:07 Freq: Status: Active Protocol: Document 04/05/19 15:58 [facility] (Rec: 04/05/19 16:45 [facility] [id number]) OT Summary Assessment and Plan Potential Rehabilitation Potential Good Analytic Complexity at Evaluation Low Summary OT Impairments Pain,Balance,Functional Cognition,Functional Mobility, Grooming,Dressing,Toileting, Bathing,Toilet Transfers, Shower Transfers Progress Towards Goals Slow Progress due to Medical Issues,Slow Progress due to Activity Tolerance Assessment Summary Pt main barriers are decreased activity tolerance, balance, functional mobility and transfers. Pt only able to tolerate transfer today, however able to participate in sponge bath while sitting in recliner with MODA. Pt would benefit from skilled rehab to work on safety awareness, balance, and increasing overall activity tolerance. Pt refusing the idea of skilled rehab and states able to assist to to have increase hours for caregiver come assist. Therefore pending medical stability and caregiver training, pt may benefit from skilled rehab versus home with 24/7 assist and home health. Goals Grooming Goal Independent Dressing Goal Minimal Assistance Toileting Goal Independent Bathing Goal Minimal Assistance Toilet Transfer Goal Independent Shower Transfer Goal Contact Guard Assistance Patient/Caregiver Education Goal Demonstrate Energy Conservation and Pacing, Caregiver Independent Assisting Patient OT-Other Goals Grooming goal in standing. Days to Meet Goals 7 Frequency of Treatment Frequency Of Treatment Once a Day Treatment Plan OT Treatment Plan ADL Training,Functional Cognition Training,Functional Mobility,Patient/Family Education,Discharge Planning Other Treatment Recommendations and Next Shower Treatment Focus Discharge Recommendations OT Discharge Recommendations Home with 24/7 Assist,Home Health,SNF Rehab
[2019-04-05] MEDS: DONEPEZIL 5 MG TABLET 10 MG PO (21:10)
[2019-04-06] VITALS (7 sets, daily range): BP systolic 111–133; BP diastolic 49–79; PULSE 67–82; RESP 14–16; TEMP 36.6–36.9; O2SAT 95–100
[2019-04-06] MEDS: PSYLLIUM HUSK 1 PACKET PO (08:47)
[2019-04-06] MEDS: ACETAMINOPHEN 325 MG TABLET 650 MG PO (08:47)
[2019-04-06] MEDS: MECLIZINE HCL 12.5 MG TABLET 25 MG PO (08:47)
[2019-04-06] MEDS: ENOXAPARIN 40 MG/0.4 ML SYRINGE SUBCUT (08:47)
[2019-04-06] MEDS: LACTOBACILLUS ACIDOPHILUS TABLET 1 EACH PO (08:48)
[2019-04-06] MEDS: CARBIDOPA-LEVODOPA 10/100 TABLET 1 EACH PO (08:48)
[2019-04-06] MEDS: FLUoxetine 10 MG CAPSULE PO (08:48)
--- NOTE | 2019-04-06 09:59 | OT.IP.TRT ---
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) Other abnormalities of gait and mobility (04/02/19) Encounter for attention to ileostomy (04/02/19) Surgery Performed Operation Date: 04/02/19 12:15 Actual Procedures p Ileostomy Reversal - Tony Medrano MD Occupational Therapy Treatment Note M2 OT-IP Current Condition Start: 04/05/19 16:07 Freq: Status: Active Protocol: Document 04/05/19 15:58 [facility] (Rec: 04/05/19 16:45 [facility] [id number]) Occupational Therapy Current Condition Current Condition Evaluation Date 04/05/19 Treatment Diagnosis Ileostomy reversal, decreased mobility Diagnosis Onset Date 04/02/19 Weight Bearing Status Weight Bearing Status Weight Bear as Tolerated M3 OT- IP Subjective and Pain Start: 04/05/19 16:07 Freq: Status: Active Protocol: Document 04/06/19 09:56 [facility] (Rec: 04/06/19 09:59 [facility] [id number]) OT- Subjective Occupational Therapy Visit Type Type Administrative Note Notes Went to see pt for showering, nursing aid just completed shower with pt. Spoke briefly with pt's regarding pt's needs for assistance and she feeling better about taking him home especially that his bowels are not longer liquidy. No charge
--- NOTE | 2019-04-06 11:35 | P.DS_ITS ---
History of Present Illness History of Present Illness Date Patient Seen: 04/06/19 Time Patient Seen: 11:38 Chief complaint: [id number] Narrative: The patient is a gentleman who had a colovesical fistula treated with resection and primary anastomosis with loop ileostomy. The ileostomy was closed and he was brought in postop. Discharge Providers Provider Date of admission: 04/02/19 10:46 Discharge Date: 04/06/19 Primary care physician: Luis Daniel Varghese MD Consults: 04/03/19 08:03 Consult to Physical Therapy Evaluate & Treat Comment: Physician Instructions: Evaluate and Treat 04/05/19 11:09 Consult to Occupational Therapy Evaluate & Treat Comment: Physician Instructions: Evaluate and treat Discharge provider: Naga Alonso MD Summary Hospital Course Discharge Diagnosis: One history of colovesical fistula with diverting loop ileostomy which was closed Two Parkinson's disease chronic wheelchair bound Three gastroesophageal reflux disease chronic controlled with medication For chronic hypertension controlled with medication Five chronic blood-loss anemia dating from the time of his initial operation for the colovesical fistula Six acute diarrhea with incontinence Hospital Course: Patient underwent ileostomy closure. His postoperative course was fairly smooth except that he developed explosive diarrhea which was problematic it for discharging him since he is wheelchair-bound and really not able to deal with that problem affectively alone. He does have help at home and arrangements have been made now for home health. He is becoming more functional and is stool is a becoming formed. Status at Discharge Cognitive/behavioral status at discharge: oriented Functional status at discharge: wheelchair bound (Chronic due to Parkinson's) Overall status at discharge: patient is progressing back to baseline Exam Vital Signs (past 8 hours): - 04/06/19 04:30 04/06/19 06:00 04/06/19 08:00 Temperature 98.4 F 98.0 F Pulse Rate 73 67 Respiratory Rate 14 16 Blood Pressure 133/57 L 111/79 Pulse Oximetry 98 96 100 04/06/19 10:00 Temperature Pulse Rate Respiratory Rate Blood Pressure Pulse Oximetry 100 Oxygen Delivery Method Room Air Oxygen Flow Rate 0 Objective Labs Result Diagrams: 04/03/19 06:50 04/03/19 06:50 Discharge Plan Discharge Plan Patient Disposition: Home Discharge orders & Medications Prescriptions: Continued fluoxetine 10 mg Tablet 10 mg PO DAILY RF: 0 aspirin 81 mg Tablet,Delayed Release (Dr/Ec) 162 mg PO QPM RF: 0 meclizine 25 mg Tablet 25 mg PO QAM RF: 0 epinephrine [EpiPen 2-Lorenzo] 0.3 mg/0.3 mL Auto-Injector 0.3 ml IM PRN PRN (Reason: Anaphylaxis) RF: 0 multivitamin Tablet 1 tab PO DAILY RF: 0 cholecalciferol (vitamin D3) [Vitamin D3] 2,000 unit Capsule 2,000 unit PO DAILY RF: 0 calcium carb-mag ox-zinc sulf 333-133-5 mg Tablet 1 tab PO QAM RF: 0 carbidopa-levodopa 10-100 mg Tablet 1 tab PO TID RF: 0 famotidine [Pepcid AC] 10 mg Tablet 10 mg PO BID RF: 0 donepezil 10 mg Tablet 10 mg PO BEDTIME RF: 0 naproxen sodium [Aleve] 220 mg Capsule 220 - 440 mg PO BID PRN (Reason: Pain) RF: 0 magnesium hydroxide [Milk of Magnesia] 400 mg/5 mL Suspension 30 ml PO PRN PRN (Reason: Constipation) RF: 0 Fleet Enema 19-7 gram/118 mL Enema 118 ml OK PRN PRN (Reason: Constipation) RF: 0 Follow up/Referrals: Tony Medrano MD [Physician] - 1 Week (Please call our office and make an appointment to see Dr. Medrano in about 7-10 days. If you need to reach a doctor after hours please call our office and listen to the entire message. At the end you will be connected with the page food dehydrator operator who will reach the doctor on- call. Except for true emergencies, Try to avoid the use of the emergency room if possible since your postoperative care is included in your operative care.) Luis Daniel Varghese MD [Primary Care Provider] - Diet/Activity/Treatments Diet: Diet as Tolerated Activity: no lifting >20lbs for 6 weeks. Skin/Wound/Dressing Care Report to your healthcare provider any signs of infection, such as:: increased pain, unusual drainage and unusual redness Discharge Data Primary Care Provider: Luis Daniel Varghese Quality VTE Deep Vein Thrombosis/Pulmonary Embolism Present on Admission: No
--- NOTE | 2019-04-06 11:46 | PT.IPTN ---
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) Other abnormalities of gait and mobility (04/02/19) Encounter for attention to ileostomy (04/02/19) Surgery Performed Operation Date: 04/02/19 12:15 Actual Procedures p Ileostomy Reversal - Tony Medrano MD Physical Therapy Treatment Note M2 PT-IP Current Condition Start: 04/03/19 12:30 Freq: NEEDED Status: Active Protocol: Document 04/03/19 11:17 AB (Rec: 04/03/19 12:45 AB [id number]) Physical Therapy Current Condition Current Condition Evaluation Date 04/03/19 Treatment Diagnosis s/p ileostomy reversal; generalized weakness Onset Date 04/02/19 Precautions Abdominal Surgery Precautions Log Roll,Lifting Restrictions, Gait Belt above Incisional Area M3 PT-IP Subjective Start: 04/03/19 12:30 Freq: NEEDED Status: Active Protocol: Document 04/06/19 11:46 AB (Rec: 04/06/19 12:54 AB [id number]) Subjective Physical Therapy Visit Type Type Treatment Note Visit Start Time 11:46 Visit Stop Time 12:04 Total Visit Minutes 18 Number of SUPPLEMENTAL MANAGER Visits 0 Physical Therapy Visit Comments Patient Comments pt agreeable to do PT M4 PT-IP Mobility and Gait Start: 04/03/19 12:30 Freq: NEEDED Status: Active Protocol: Document 04/06/19 11:46 AB (Rec: 04/06/19 12:54 AB [id number]) PT-Bed Mobility Assessment Supine to Sit Supine to Sit Moderate Assistance,1 Person Assistance PT-Transfer Assessment Sit to and From Stand Sit to and from Stand Standby Assistance,Contact Guard Assistance,1 Person Assistance,Use of Upper Extremities Equipment Transfer Assistive Device Gait Belt,Front Wheeled Walker Orthotic/Prosthetic Devices or Brace: No Transfers Transfer Destination Toilet Transfer Technique ambulated using FWW Transfer Ability Level of Assist Contact Guard Assistance,1 Person Assistance Comments Mobility Comments pt completed log roll supine to sit mod A and cues. completed sit to stand CGA and ambulated in the hallway using FWW ~ 100 ft CGA to min A. pt requested to use the toilet and ambulated using FWW CGA to min A especially with turns. informed nurse that pt needs to be cleaned up. assisted pt to the toilet. nurse took over. Gait Assessment Gait Gait Assistance Required: Contact Guard Assist,Minimum Assistance Distance (Feet) 100 Able to Maintain Weight Bearing Status Yes During Gait Assistive Devices Assistive Device Gait Belt,Front Wheeled Walker Orthotic/Prosthetic Devices or Brace: No Gait Deviations General Gait Pattern Antalgic,Decreased Stride Length,Decreased Feet Clearance,Narrow Based Gait, Step-to Gait Factors Limiting Gait Function Factors Limiting Gait Function Decreased Activity Tolerance, Decreased Strength,Limited Range of Motion,Poor Balance, Poor Safety Awareness Comments Gait Comments pt presents with decrease LLE elevation and advancement. cued for weight shifting and increase RLE elevation. M5 PT-IP Objective Assessments Start: 04/03/19 12:30 Freq: NEEDED Status: Active Protocol: Document 04/03/19 11:17 AB (Rec: 04/03/19 12:45 AB [id number]) Orientation Orientation/Cognition Level of Alertness Alert Orientation Name Safety Awareness Decreased Safety Awareness Gross Range of Motion Lower Extremity ROM Assessment Within Functional Limits Strength Lower Extremity Strength Hip 4-/5 Knee 3+/5 Ankle 4-/5 Coordination Assessment Gross Coordination Gross Coordination WNL Muscle Tone Muscle Tone WNL Yes M6 PT-IP Treatment Start: 04/03/19 12:30 Freq: NEEDED Status: Active Protocol: Document 04/06/19 11:46 AB (Rec: 04/06/19 12:54 AB [id number]) Physical Therapy Treatment Education Education Provided Safety M7 PT-IP Assessment and Plan Start: 04/03/19 12:30 Freq: NEEDED Status: Active Protocol: Document 04/06/19 11:46 AB (Rec: 04/06/19 12:54 AB [id number]) PT Summary Assessment and Plan Potential Rehabilitation Potential Good Summary Impairments Pain,ROM,Strength,Balance, Coordination,Sensation,Tone, Cognition,Bed Mobility, Transfers,Gait,Activity Tolerance Progress Towards Goals Progressing Toward Goals Assessment Summary pt requiring CGA to min A with mobility. prior to hospitalization, pt only ambulated with his caregiver around and most of the time, pt will be on his w/c and able to transfer from his w/c to the toilet/bed. pt will have his spouse with him and may be able to assist him if needed. pt plans to go home and may go home when medically stable. pt plans to continue using his w/c and only transfers when needed. pt will benefit from homehealth PT. Goals Bed Mobility Goal Independent Transfer Goal Independent,Front Wheeled Walker Gait Goal Standby Assistance,Front Wheel Walker Gait Distance 100 Days to Meet Goals 10 Frequency of Treatment Frequency Of Treatment Once a Day Treatment Plan Physical Therapy Treatment Plan Bed Mobility Training,Transfer Training,Gait Training, Therapeutic Exercise,Balance Retraining,Post Op Education, Discharge Planning,Hot or Cold Pack,Neuromuscular Re-ed Other Recommendations and Next Treatment ambulation Focus Recommendations To Nursing Amount of Assist Needed 1 Person Assist Discharge Recommendations PT Discharge Recommendations Home with Assistance,Home Health
--- NOTE | 2019-04-06 12:14 | CM.DPC ---
DCP cONT: Checked in with patient earlier, and , Maira. Confirmed from patient and that patient wants [facility] health. Confirmed that he has a caregiver come in daily for 2 hours. He does not feel that he needs more than that. , Maira, stated, she is also able to help him as well. She has been at patient's bedside. Spoke to Dr. Galeano, regarding concerns about needing 24 hour caregivers. He stated, he should not need this. Had him sign face to face for [facility]. Patient is being discharged home today. Called Dave, recruitment advertising manager at [facility], and gave him information. Faxed over face to face, orders, DC summary. Dave was not sure if patient was still under their services. P: Patient is to be discharged home today with [facility]. Aditi Acosta RN/Advertising Dispatch Clerks Supervisor
--- NOTE | 2019-04-06 12:32 | PC.NURSE ---
Discharge instructions and home care handout reviewed with patient and his . Patient states he will call on Monday to schedule follow up appointment with Dr. Medrano's office to be seen in 7-10 days in office. Patient and his state understanding of instructions and have no further questions or concerns at this time. Plan for discharge in time [place] afternoon ferry [place]. Patient eating lunch at this time, denies pain.
[2019-04-06 13:35] LABS: Clostridium Difficile Tox PCR Negative for C. diff
== END 2019-04-06 14:35 | disposition home health service (06) | DRG 331 ==
PROVIDERS: Specialist; Admitting Provider Surgery; PCP Family Medicine; Visit Provider Surgery
PROC: 0DBB0ZZ Excision of Ileum, Open Approach (ICD-10-PCS; CPT 44620; principal; 2019-04-02 12:15)
DX: Z43.2 Encounter for attention to ileostomy (principal); D50.0 Iron deficiency anemia secondary to blood loss (chronic); R19.7 Diarrhea, unspecified; G20 Parkinson's disease; Z99.3 Dependence on wheelchair; I10 Essential (primary) hypertension; K21.9 Gastro-esophageal reflux disease without esophagitis; R15.9 Full incontinence of feces
CPT/HCPCS: 36415; 44620; 80048; 83735; 84100; 85025; 87493; 90471; 90662; 97116; 97161; 97165; J1100; J1650; J2270; J2405; J2543; J2704; J3010

== ENCOUNTER → 2020-11-04 10:45 | Outpatient (CLI) | payer MEDICARE, SELFPAY ==
[2019-04-02 10:51] VITALS: BMI 23.6
== END ==
PROVIDERS: PCP Family Medicine; Visit Provider Physician Assistant Medical
DX: Z91.89 Other specified personal risk factors, not elsewhere classified (principal)
CPT/HCPCS: 87077; 87086; 87147; 87186

== ENCOUNTER → 2020-12-11 14:30 | Outpatient (CLI) | payer MEDICARE, SELFPAY ==
[2019-04-02 10:51] VITALS: BMI 23.6
== END ==
PROVIDERS: PCP Physician Assistant Medical; Visit Provider Physician Assistant Medical
DX: N39.0 Urinary tract infection, site not specified (principal)
CPT/HCPCS: 87077; 87086; 87186

== ENCOUNTER → 2020-12-30 11:33 | Outpatient (CLI) | payer MEDICARE, SELFPAY ==
[2019-04-02 10:51] VITALS: BMI 23.6
[2020-12-30 19:09] LABS: Appearance Urine UA CLOUDY; Bilirubin Urine UA NEGATIVE (NEGATIVE); Color Urine UA YELLOW; Glucose Urine UA NEGATIVE (Negative); Ketones Urine UA NEGATIVE (NEGATIVE); Leukocyte Esterase Urine UA 2+ (NEGATIVE); Nitrite Urine UA POSITIVE (Negative); Occult Blood Urine UA 2+ (Negative); Protein Urine UA 2+ (Negative); Specific Gravity Urine UA 1.015 (1.000-1.035); Urobilinogen Urine UA 0.2 E.U./dL (0.2); pH Urine UA 7.5 (4.5-8.0)
[2020-12-30 19:21] LABS: RBC Urine None Seen (0-5/HPF)
[2020-12-30 19:35] LABS: Bacteria Urine Many (>30); Culture Indicated Urine Specimen Cultured; Squamous Epithelial Cell Urine None Seen (0-5/HPF); WBC Urine >100/HPF (0-5/HPF)
== END ==
PROVIDERS: PCP Physician Assistant Medical; Visit Provider Physician Assistant Medical
DX: R52 Pain, unspecified (principal)
CPT/HCPCS: 81003; 81015; 87077; 87086; 87147; 87186

== ENCOUNTER 2022-05-31 17:29 | Inpatient (IN) | payer MEDICARE, SELFPAY ==
[2019-04-02 10:51] VITALS: BMI 23.6
[2022-05-31] VITALS (24 sets, daily range): BP systolic 106–133; BP diastolic 53–63; PULSE 72–85; RESP 16–21; TEMP 36.5–36.7; O2SAT 95–99; BMI 33.6
--- NOTE | 2022-05-31 18:13 | PC.NURSE ---
[facility] called to report that they failed to bring in this patients personal belonging including his cell phone in the helicopter. They are trying to get him the belongings but they are unsure when they will be able to return to give them to the patient. Patient informed.
[2022-05-31 18:15] LABS: Add Manual Diff / Slide Review NO; Basophils Absolute Auto 100 /uL (0-100); Basophils Percent Auto 0.7 % (0-2); Eosinophils Absolute Auto 300 /uL (0-450); Eosinophils Percent Auto 2.9 % (2-4); Hematocrit 31.5 % (41-53); Hemoglobin 10.8 g/dL (13.5-17.5); Lymphocytes Absolute Auto 1500 /uL (1100-4500); Lymphocytes Percent Auto 14.4 % (25-40); Mean Corpuscular HGB Conc 34.3 % (30-36); Mean Corpuscular Hemoglobin 34.1 PG (26-34); Mean Corpuscular Volume 99.4 fL (80-100); Monocytes Absolute Auto 1100 /uL (0-900); Monocytes Percent Auto 10.6 % (3-14); Neutrophils Absolute Auto 7500 /uL (1500-7000); Neutrophils Percent Auto 71.4 % (50-75); Platelet Count 221 X10^3/uL (150-400); Red Blood Cell Count 3.16 X10^6/uL (4.5-5.9); Red Cell Distribution Width 13.4 % (11.6-14.8); White Blood Cell Count 10.5 X10^3/uL (4.5-11.0)
--- NOTE | 2022-05-31 18:17 | DI.CT.S_ITS ---
PROCEDURE: CT ABDOMEN PELVIS W CON INDICATIONS: /abdominal pain/rectal bleeding TECHNIQUE: After the administration of IV contrast, axial sections were acquired from the lung bases to the pubic symphysis. Coronal and sagittal reformats were performed. For radiation dose reduction, the following was used: automated exposure control, adjustment of mA and/or kV according to patient size. COMPARISON: [facility], CT, CT ABDOMEN PELVIS WO CON, 12/18/2018, 10:17. FINDINGS: Image quality: There is mild motion artifact as well as metallic streak artifact from patient's left hip prosthesis and right hip surgical hardware limiting evaluation. Lung bases: There is mild atelectasis and scarring in the lung bases. Heart: Heart is normal in size. ABDOMEN: Liver: No mass lesion. Gallbladder: Surgically absent. There is mild indistinct fat stranding in the gallbladder fossa without a discrete fluid collection. Biliary ducts: No biliary ductal dilatation. Pancreas: Unremarkable. Spleen: Normal in size. Adrenal Glands: No adrenal nodules. Kidneys and Ureters: No hydronephrosis. Stomach and Bowel: Stomach and small bowel loops are normal in caliber and wall thickness. There are bowel sutures within the small bowel in the lower abdomen. No pericecal inflammatory changes to suggest appendicitis. There is segmental colonic wall thickening within the rectosigmoid colon distal to bowel sutures in the sigmoid colon. Colonic diverticulosis is present without acute diverticulitis. Peritoneum: No abnormal intraperitoneal fluid. No free air. Ventral Wall: No hernia. Abdominal Nodes: No retroperitoneal or mesenteric adenopathy by size criteria. Vessels: Aorta and inferior vena cava are normal in size. PELVIS: Pelvic Organs: Unremarkable. Bladder: There is a right posterolateral bladder diverticulum noted. Bladder wall thickness is within normal limits. Pelvic Nodes: No enlarged lymph nodes. Miscellaneous: No inguinal hernias are seen. Bones: There is mild scalloping along the superior and inferior endplates of L4 and along the inferior endplate of L5 which are of indeterminate acuity but new compared to the prior study. Scalloping of the L1 and L3 vertebral bodies appear similar to the prior study. Visualized osseous structures demonstrate no suspicious focal lesions. IMPRESSION: 1. Segmental colonic wall thickening in the rectosigmoid colon suggestive of an infectious or inflammatory proctocolitis. However follow-up is recommended with colonoscopy to exclude a mass. 2. Colonic diverticulosis without acute diverticulitis. Dictated by: Shade Garner M.D. on 05/31/2022 at 20:51 Approved by: Shade Garner M.D. on 05/31/2022 at 20:59
--- NOTE | 2022-05-31 18:18 | ED_ITS ---
HPI - GI Bleed General Chief complaint: GI Bleed Stated complaint: blood in stool cholecystectomy Time Seen by Provider: 05/31/22 18:07 Source: EMS Mode of arrival: EMS History of Present Illness HPI Narrative: Patient brought in by ambulance from home. Patient has home health care. Complains bright red blood per rectum 1 episode today. Patient is bed-bound but mobilizes by wheelchair. Patient denies any nausea or vomiting or black stools. Is not on any blood thinners. Does have significant history colorectal surgery 4 years ago here at this facility. Has been doing well until recently he had an emergent cholecystectomy in [facility]. Has been home recovering very well. Pain is controlled from the surgery. Otherwise no recent fever chills. No urinary complaints. No chest pain or back pain or dyspnea no syncope. No dizziness. Related Data Home Medications Medication Instructions Recorded Confirmed aspirin 81 mg tablet,delayed 162 mg PO QPM 05/10/18 06/01/22 release calcium carbonate 333 mg-magnesium 1 tab PO QAM 05/10/18 06/01/22 oxide 133 mg-zinc sulf 5 mg tablet cholecalciferol (vitamin D3) 50 2,000 unit PO DAILY 05/10/18 06/01/22 mcg (2,000 unit) capsule (Vitamin D3) epinephrine 0.3 mg/0.3 mL 0.3 ml IM PRN PRN Anaphylaxis 05/10/18 06/01/22 injection, auto-injector (EpiPen 2-Lorenzo) fluoxetine 10 mg tablet 10 mg PO DAILY 05/10/18 06/01/22 meclizine 25 mg tablet 25 mg PO QAM 05/10/18 06/01/22 multivitamin 1 tab PO DAILY 05/10/18 06/01/22 carbidopa 10 mg-levodopa 100 mg 1 tab PO TID Parkinsons 10/26/18 06/01/22 tablet donepezil 10 mg tablet 10 mg PO BEDTIME 03/20/19 06/01/22 famotidine 10 mg tablet (Pepcid AC) 10 mg PO BID 03/20/19 06/01/22 Previous Rx's Medication Instructions Recorded nitrofurantoin 100 mg PO BID #14 caps 12/11/20 monohydrate/macrocrystals 100 mg capsule (Macrobid) nitrofurantoin macrocrystal 100 mg 100 mg PO BID #14 caps 01/01/21 capsule Allergies Allergy/AdvReac Type Severity Reaction Status Date / Time bee venom protein (honey bee) Allergy Severe Anaphylaxis Verified 11/04/20 12:03 avocado AdvReac Intermediate Nausea, Verified 11/04/20 12:03 vomiting gabapentin AdvReac Intermediate Hallucinati Verified 11/04/20 12:03 ng hydromorphone [From Dilaudid] AdvReac Intermediate Vomiting Verified 11/04/20 12:03 Review of Systems Review of Systems Narrative: GENERAL: negative chills, fatigue, malaise, fever, sweats. HEENT: negative sinus pain, ear pain, sore throat RESPIRATORY: negative dyspnea, cough CARDIOVASCULAR: negative chest pain, palpitations GASTROINTESTINAL: negative nausea, vomiting, abdominal pain, positive rectal bleeding : negative dysuria, frequency, hematuria MUSCULOSKELETAL: negative muscle or bony pain SKIN: negative rash, skin lesions NEUROLOGIC: negative weakness, numbness ROS Unobtainable: All systems reviewed & are unremarkable except as noted in HPI and below Patient History Medical History Anemia Cholelithiasis Colovesical fistula Compression fracture of L1 vertebra Fall Gastroesophageal reflux Hypertension Pubic ramus fracture Right femoral fracture Sigmoid diverticulitis Surgical History History of left hip replacement Hx of colectomy (12/12/18) Status post left shoulder hemiarthroplasty (11/01/18) Family History Father Lymphoma Mother Cancer Dementia Brother Cancer Smoker Social History marital status: household members: spouse occupational status: previously employed Smoking Status: Never smoker alcohol intake: former substance use type: does not use Smoking Status: Never smoker alcohol intake frequency: 0-2 drinks per day Substance Use Type: does not use Exam Narrative Exam Narrative: GENERAL: in no distress, not toxic not dyspneic HEAD: Normocephalic. EYES: Pupils equal round No scleral icterus. ENT: Mucous membranes moist. NECK: Trachea midline. CARDIOVASCULAR: Regular rate and rhythm without murmurs RESPIRATORY: Clear to auscultation. Breath sounds equal bilaterally. No wheezes, rales, or rhonchi. GASTROINTESTINAL: Abdomen soft, non-tender, Hemoccult-positive, no bright red blood per rectum. No black stool. No peritoneal signs, no penile proportion to exam. Bowel sounds are present. No CVA tenderness EXTREMITIES: No gross deformities. BACK: No flank tenderness. NEURO: AOx4. SKIN: Warm and dry PSYCH: Not anxious, is cooperative Initial Vital Signs Initial Vital Signs: Vital Signs Pulse Rate 82 05/31/22 17:30 Respiratory Rate 16 05/31/22 17:30 Blood Pressure 128/60 05/31/22 17:30 Pulse Oximetry 96 05/31/22 17:30 Course Course Decision to Admit Date: 05/31/22 Decision to Admit time: 18:22 Orders Ordered: Acetaminophen (Acetaminophen 325 Mg Tablet) 650 mg PO Q6H PRN PRN Reason: Fever/Mild Pain (1-3) Last Admin: 06/01/22 09:13 Dose: 650 mg Documented By: MENDY Carbidopa/Levodopa (Carbidopa-Levodopa 10/100 Tablet) 1 each PO TID [facility] Last Admin: 06/01/22 21:39 Dose: 1 each Documented By: Admin: 06/01/22 14:42 Dose: 1 each Documented By: Admin: 06/01/22 09:13 Dose: 1 each Documented By: MENDY Fluoxetine HCl (Fluoxetine 10 Mg Capsule) 10 mg PO DAILY [facility] Last Admin: 06/01/22 09:14 Dose: 10 mg Documented By: MENDY Sodium Chloride (Normal Saline 0.9%) 1,000 mls @ 100 mls/hr IV CONT [facility] Last Admin: 06/01/22 11:54 Dose: 100 mls/hr Documented By: Infusion: 06/01/22 10:16 Dose: 100 mls/hr Documented By: Admin: 06/01/22 00:16 Dose: 100 mls/hr Documented By: Piperacillin Sod/Tazobactam (Sod 3.375 gm/ Sodium Chloride) 100 mls @ 25 mls/hr IV Q8H [facility] Last Admin: 06/01/22 21:39 Dose: 25 mls/hr Documented By: Infusion: 06/01/22 16:33 Dose: 0 mls/hr Documented By: Admin: 06/01/22 12:04 Dose: 25 mls/hr Documented By: MENDY Naloxone HCl (Naloxone 0.4 Mg/Ml Vial) 0.2 mg IV Q2MIN PRN PRN Reason: Opiate Reversal Nystatin (Nystatin Powder 15gm) 1 applic TOP BID [facility] Last Admin: 06/01/22 09:17 Dose: 1 applic Documented By: MENDY Ondansetron HCl (Ondansetron 4 Mg/2 Ml Inj) 4 mg IV Q8HR PRN PRN Reason: Nausea And Vomiting Last Admin: 06/01/22 15:38 Dose: 4 mg Documented By: MENDY Pantoprazole Sodium (Pantoprazole 40 Mg Vial) 40 mg IV BID [facility] Last Admin: 06/01/22 21:39 Dose: 40 mg Documented By: Admin: 06/01/22 09:14 Dose: 40 mg Documented By: MENDY Discontinued Medications Sodium Chloride (Normal Saline 0.9%) 500 mls @ 1,000 mls/hr IV BOLUS ONE Stop: 05/31/22 18:46 Last Infusion: 05/31/22 19:06 Dose: 0 mls/hr Documented By: Admin: 05/31/22 18:28 Dose: 1,000 mls/hr Documented By: GATITO Piperacillin Sod/Tazobactam (Sod 4.5 gm/ Sodium Chloride) 100 mls @ 200 mls/hr IV NOW ONE Stop: 06/01/22 09:14 Last Admin: 06/01/22 09:14 Dose: 200 mls/hr Documented By: MENDY Ondansetron HCl (Ondansetron 4 Mg/2 Ml Inj) 4 mg IV NOW PRN PRN Reason: Nausea And Vomiting Pantoprazole Sodium (Pantoprazole 40 Mg Vial) 80 mg IV NOW ONE Stop: 05/31/22 17:58 Last Admin: 05/31/22 18:22 Dose: Not Given Documented By: GATIOT Pantoprazole Sodium (Pantoprazole 40 Mg Vial) 40 mg IV NOW ONE Stop: 05/31/22 18:24 Last Admin: 05/31/22 18:27 Dose: 40 mg Documented By: GATITO Polyethylene Glycol/Electrolytes ([id number]/Sod Sulf,Bicarb,Cl/Kcl 4,000 Ml Solution) 2,000 ml PO NOW ONE Stop: 06/01/22 21:01 Polyethylene Glycol/Electrolytes ([id number]/Sod Sulf,Bicarb,Cl/Kcl 4,000 Ml Solution) 2,000 ml PO NOW ONE Stop: 06/01/22 10:17 Last Admin: 06/01/22 11:53 Dose: 2,000 ml Documented By: MENDY Vital Signs Vital signs: Vital Signs - 8 hr 05/31/22 17:35 05/31/22 17:30 05/31/22 18:08 Temperature 97.7 F Pulse Rate 83 82 75 Respiratory Rate 18 16 18 Blood Pressure 128/60 128/60 Pulse Oximetry 98 96 97 Oxygen Delivery Method Room Air 05/31/22 18:15 05/31/22 18:15 05/31/22 17:45 Temperature Pulse Rate 85 83 Respiratory Rate 21 16 Blood Pressure 133/60 106/53 L Pulse Oximetry 97 97 Oxygen Delivery Method Room Air 05/31/22 18:05 05/31/22 18:15 05/31/22 18:30 Temperature Pulse Rate 77 85 Respiratory Rate 16 17 Blood Pressure 125/59 L 133/60 125/57 L Pulse Oximetry 98 97 Oxygen Delivery Method Room Air Room Air 05/31/22 18:30 05/31/22 18:45 05/31/22 18:45 Temperature Pulse Rate 76 75 Respiratory Rate 20 18 Blood Pressure 131/62 Pulse Oximetry 96 96 Oxygen Delivery Method Room Air 05/31/22 19:00 05/31/22 19:00 05/31/22 19:15 Temperature Pulse Rate 74 76 Respiratory Rate 18 17 Blood Pressure 127/60 Pulse Oximetry 96 98 Oxygen Delivery Method 05/31/22 19:15 05/31/22 19:30 05/31/22 19:30 Temperature Pulse Rate 77 Respiratory Rate 18 Blood Pressure 120/59 L 120/56 L Pulse Oximetry Oxygen Delivery Method 05/31/22 19:55 05/31/22 19:55 05/31/22 20:00 Temperature Pulse Rate 81 Respiratory Rate 19 Blood Pressure 118/53 L 117/55 L Pulse Oximetry 99 Oxygen Delivery Method Room Air 05/31/22 20:00 05/31/22 20:15 05/31/22 20:15 Temperature Pulse Rate 75 74 Respiratory Rate 18 17 Blood Pressure 117/57 L Pulse Oximetry 99 98 Oxygen Delivery Method Room Air 05/31/22 20:30 05/31/22 20:30 05/31/22 20:45 Temperature Pulse Rate 75 Respiratory Rate 19 Blood Pressure 114/53 L 111/53 L Pulse Oximetry 97 Oxygen Delivery Method Room Air 05/31/22 20:45 05/31/22 21:00 05/31/22 21:00 Temperature Pulse Rate 76 73 Respiratory Rate 20 17 Blood Pressure 111/54 L Pulse Oximetry 96 97 Oxygen Delivery Method Room Air 05/31/22 21:16 05/31/22 21:16 05/31/22 21:30 Temperature Pulse Rate 77 Respiratory Rate 21 Blood Pressure 125/63 117/57 L Pulse Oximetry 96 Oxygen Delivery Method Room Air 05/31/22 21:30 05/31/22 21:45 05/31/22 21:45 Temperature Pulse Rate 74 73 Respiratory Rate 18 17 Blood Pressure 131/62 Pulse Oximetry 96 97 Oxygen Delivery Method Room Air Room Air MDM - GI Bleed Differential Diagnosis Differential diagnosis: Likely infectious diarrhea, Upper gastrointestinal hemorrhage, Lower gastrointestinal hemorrhage, hematochezia, melena and anal fissure Medical Records Medical records narrative: I did review medical records from 2019 regarding general surgery here. Lab Data Result diagrams: 06/01/22 05:37 06/01/22 05:37 Labs: Lab Results 05/31/22 05/31/22 05/31/22 Range/Units 17:12 18:00 18:00 WBC 10.5 (4.5-11.0) X10^3/uL RBC 3.16 L (4.5-5.9) X10^6/uL Hgb 10.8 L (13.5-17.5) g/dL Hct 31.5 L (41-53) % MCV 99.4 (80-100) fL MCH 34.1 H (26-34) PG MCHC 34.3 (30-36) % RDW 13.4 (11.6-14.8) % Plt Count 221 (150-400) X10^3/uL Neut % (Auto) 71.4 (50-75) % Lymph % (Auto) 14.4 L (25-40) % Clark % (Auto) 10.6 (3-14) % Eos % (Auto) 2.9 (2-4) % Baso % (Auto) 0.7 (0-2) % Neut # (Auto) 7500 H (0105-8634) /uL Lymph # (Auto) 1500 (4318-6323) /uL Clark # (Auto) 1100 H (0-900) /uL Eos # (Auto) 300 (0-450) /uL Baso # (Auto) 100 (0-100) /uL PT 13.2 H (10.1-12.7) SECONDS INR 1.2 (0.9-1.3) APTT 26 (26-36) SECONDS Sodium (137-145) mmol/L Potassium (3.4-5.1) mmol/L Chloride (98-107) mmol/L Carbon Dioxide (22-32) mmol/L BUN (9-20) mg/dL Creatinine (0.66-1.25) mg/dL Estimated GFR (>60) mL/min BUN/Creatinine Ratio (6-22) Glucose (80-110) mg/dL Calcium (8.4-10.2) mg/dL Total Bilirubin (0.2-1.3) mg/dL AST (17-59) IU/L ALT (<50) IU/L Alkaline Phosphatase (38-126) U/L Total Protein (6.3-8.2) g/dL SARS-CoV-2 (PCR) (Negative) Blood Type A Positive Antibody Screen Negative 05/31/22 05/31/22 Range/Units 18:00 18:34 WBC (4.5-11.0) X10^3/uL RBC (4.5-5.9) X10^6/uL Hgb (13.5-17.5) g/dL Hct (41-53) % MCV (80-100) fL MCH (26-34) PG MCHC (30-36) % RDW (11.6-14.8) % Plt Count (150-400) X10^3/uL Neut % (Auto) (50-75) % Lymph % (Auto) (25-40) % Clark % (Auto) (3-14) % Eos % (Auto) (2-4) % Baso % (Auto) (0-2) % Neut # (Auto) (9618-0294) /uL Lymph # (Auto) (8659-8247) /uL Clark # (Auto) (0-900) /uL Eos # (Auto) (0-450) /uL Baso # (Auto) (0-100) /uL PT (10.1-12.7) SECONDS INR (0.9-1.3) APTT (26-36) SECONDS Sodium 138 (137-145) mmol/L Potassium 3.9 (3.4-5.1) mmol/L Chloride 98 (98-107) mmol/L Carbon Dioxide 26 (22-32) mmol/L BUN 31 H (9-20) mg/dL Creatinine 1.46 H (0.66-1.25) mg/dL Estimated GFR 47 L (>60) mL/min BUN/Creatinine Ratio 21.2 (6-22) Glucose 99 (80-110) mg/dL Calcium 8.0 L (8.4-10.2) mg/dL Total Bilirubin 0.3 (0.2-1.3) mg/dL AST 31 (17-59) IU/L ALT 18 (<50) IU/L Alkaline Phosphatase 88 (38-126) U/L Total Protein 7.3 (6.3-8.2) g/dL SARS-CoV-2 (PCR) Positive H (Negative) Blood Type Antibody Screen Point of Care Testing Stool Occult Blood Positive Imaging Data CT scan - abdomen/pelvis: Radiologist's Impression: [address] [address] [address] Scan Report Signed Patient: Greg Arriola MR#: [id number] : 1935 Acct:[id number] Age/Sex: 87 / M Date of Service: 05/31/22 Loc: ED Accession Number: [id number] ?? Procedure: CT abdomen pelvis w con Ordering Provider: Luis Daniel Cloud MD PROCEDURE:? CT ABDOMEN PELVIS W CON ? INDICATIONS:? /abdominal pain/rectal bleeding ? TECHNIQUE:? After the administration of IV contrast, axial sections were acquired from the lung bases to the pubic symphysis.? Coronal and sagittal reformats were performed.? For radiation dose reduction, the following was used:? automated exposure control, adjustment of mA and/or kV according to patient size. ? COMPARISON:? [facility], CT, CT ABDOMEN PELVIS WO CON, 12/18/2018, 10:17. ? FINDINGS:? Image quality:? There is mild motion artifact as well as metallic streak artifact from patient's left hip prosthesis and right hip surgical hardware limiting evaluation. ? Lung bases:? There is mild atelectasis and scarring in the lung bases.? ? Heart:? Heart is normal in size. ? ? ABDOMEN: Liver:? No mass lesion. Gallbladder:? Surgically absent.? There is mild indistinct fat stranding in the gallbladder fossa without a discrete fluid collection. Biliary ducts:? No biliary ductal dilatation.? ? Pancreas:? Unremarkable.? ? Spleen:? Normal in size.? ? Adrenal Glands:? No adrenal nodules.? ? Kidneys and Ureters:? No hydronephrosis.? ? ? Stomach and Bowel:? Stomach and small bowel loops are normal in caliber and wall thickness.? There are bowel sutures within the small bowel in the lower abdomen.? No pericecal inflammatory changes to suggest appendicitis.? There is segmental colonic wall thickening within the rectosigmoid colon distal to bowel sutures in the sigmoid colon.? Colonic diverticulosis is present without acute diverticulitis. Peritoneum:? No abnormal intraperitoneal fluid.? No free air.? ? Ventral Wall: ? No hernia.? Abdominal Nodes:? No retroperitoneal or mesenteric adenopathy by size criteria.? Vessels:? Aorta and inferior vena cava are normal in size.? ? PELVIS: Pelvic Organs:? Unremarkable.? ? Bladder:? There is a right posterolateral bladder diverticulum noted.? Bladder wall thickness is within normal limits. Pelvic Nodes: No enlarged lymph nodes.? Miscellaneous: No inguinal hernias are seen. ? ? ? Bones:? There is mild scalloping along the superior and inferior endplates of L4 and along the inferior endplate of L5 which are of indeterminate acuity but new compared to the prior study.? Scalloping of the L1 and L3 vertebral bodies appear similar to the prior study.? Visualized osseous structures demonstrate no suspicious focal lesions. ? IMPRESSION:? ? 1. Segmental colonic wall thickening in the rectosigmoid colon suggestive of an infectious or inflammatory proctocolitis.? However follow-up is recommended with colonoscopy to exclude a mass. ? 2. Colonic diverticulosis without acute diverticulitis.? ? ? Dictated by: Shade Garner M.D. on 05/31/2022 at 20:51 ? ? Approved by: Shade Garner M.D. on 05/31/2022 at 20:59 ? ECG Data Interpretation: Normal sinus rhythm rate [address] elevation or depression Treatment and disposition Social Determinants of Health that impact treatment or disposition: None Code Status and discussions:: Full code MDM Narrative Medical decision making narrative: Patient brought in by ambulance from home. Patient has home health care. Complains bright red blood per rectum 1 episode today. Patient is bed-bound but mobilizes by wheelchair. Patient denies any nausea or vomiting or black stools. Is not on any blood thinners. Does have significant history colorectal surgery 4 years ago here at this facility. Has been doing well until recently he had an emergent cholecystectomy in [facility] here. Has been home recovering very well. Pain is controlled from the surgery. Otherwise no recent fever chills. No urinary complaints. No chest pain or back pain or dyspnea no syncope. No dizziness. CBC CMP PT PTT EKG normal saline as well as CT scan abdomen and pelvis has been ordered after evaluation and history. Differential diagnosis includes but not limited to bowel obstruction lower GI bleed diverticulosis fistula/ischemic bowel. MDM CC: ?GI bleed ? Complicating co-morbidities: ?Previous complicated colorectal surgery ? Data collected from: Patient ? Medical records reviewed: ?I did reviewed surgical procedure from 2019 83-year-old male 5 months status post sigmoid colectomy for colovesicular fistula and diverting ileostomy presents for ileostomy takedown. preoperatively he underwent a barium enema and to study is colonic anastomosis which was patent and without fistula. ? Differential considered: ?Please see above ? Exam documented above, pertinent findings include: Hemoccult-positive, no bright red blood per rectum. ? Lab Test results independently reviewed as above. Pertinent findings: CBC does show hemoglobin 10.8 which is at baseline. Platelets reassuring at 221. COVID positive. ? Independently reviewed EKG as above ? Imaging studies independently reviewed: CT abdomen pelvis does show diverticulosis without diverticulitis. ? Consultations: 10:05 p.m.. Spoke with hospitalist as well as surgeon, agree for admit. Hospitalist will admit, dr kuar, spoke with surgeon Dr. Mcbrdie, she will follow. Agree for serial CBCs. ? Treatments: Protonix IV/IV fluids for renal hydration ? Re-evaluations: Reviewed results with patient. Patient in no distress at this time. Agrees for admission. ? Discussion: Appropriate for admission. Reviewed patient as well as hospitalist as well as surgeon for admission for observation for serial CBC. If any changes will need colonoscopy. COVID-19 is incidental finding. Patient is asymptomatic, not requiring supplemental oxygen. No respiratory complaints. ? Diagnosis: Diverticulosis bleed ? Disposition: Admission Discharge Plan Departure Patient Disposition: Admitted as Observation Clinical Impression: Acute GI bleeding, Diverticulosis, COVID-19 Admit Date/Time: 05/31/22 22:00 Admit Provider: Eligio Kaur
[2022-05-31] MEDS: PANTOPRAZOLE 40 MG VIAL IV (18:27)
[2022-05-31] MEDS: SODIUM CHLORIDE 0.9% 500 ML 1000 ML IV (18:28)
[2022-05-31 19:18] LABS: COVID19 -Nasal RAPID POSITIVE (Negative)
[2022-05-31 19:24] LABS: INR 1.2 (0.9-1.3); Prothrombin Time 13.2 SECONDS (10.1-12.7)
[2022-05-31 19:27] LABS: PTT Partial Thromboplastin Tim 26 SECONDS (26-36)
[2022-05-31 19:31] LABS: Alanine Aminotransferase 18 IU/L (<50); Alkaline Phosphatase 88 U/L (38-126); Aspartate Aminotransferase 31 IU/L (17-59); BUN Creatinine Ratio 21.2 (6-22); Bilirubin Total 0.3 mg/dL (0.2-1.3); Blood Urea Nitrogen 31 mg/dL (9-20); Carbon Dioxide 26 mmol/L (22-32); Chloride 98 mmol/L (98-107); Estimated Glomerular Filt Rate 47 mL/min (>60); Glucose 99 mg/dL (80-110); Potassium 3.9 mmol/L (3.4-5.1); Sodium 138 mmol/L (137-145); Total Protein 7.3 g/dL (6.3-8.2)
--- NOTE | 2022-05-31 22:51 | PM.HP.1 ---
History of Present Illness History of Present Illness Date Patient Seen: 05/31/22 Time Patient Seen: 23:30 Chief complaint: blood in stool cholecystectomy Narrative: Mr. Arriola is a 87M with PMH HTN, GERD who comes in to the hospital with bright red blood per rectum. He is wheelchair bound after lower extremity injuries in the past. He did have a cholecystectomy just over a week ago in [employer]. He did well. His abdominal pain is minimal. He is not taking any anticoagulation. Today he noticed a large amount of bright red blood when he had a bowel movement. 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 For the fistula he did have resection and anastamosis done in 2019. In the ED workup was done vitals were notable for afebrile, normal blood pressure. Labs notable for WBC 10.5, hgb 10.8, plts 221. INR 12. Creatinine 1.46. COVID positive. CT noted for segmental wall thickening in the rectosigmoid colon, and diverticulosis. He was admitte for further treatment. Patient History Medical History Anemia Cholelithiasis Colovesical fistula Compression fracture of L1 vertebra Fall Gastroesophageal reflux Hypertension Pubic ramus fracture Right femoral fracture Sigmoid diverticulitis Surgical History History of left hip replacement Hx of colectomy (12/12/18) Status post left shoulder hemiarthroplasty (11/01/18) Family & Social History Family History Father Lymphoma Mother Cancer Dementia Brother Cancer Smoker Social History: household members spouse Prior Living Arrangements House Safety & Behavioral: Feels Safe in Current Yes Environment Been Physically Hurt or No Threatened By a Person Tobacco & Substance use: Smoking Status Never smoker alcohol intake former alcohol intake frequency 0-2 drinks per day Substance Use Type does not use Meds Home Medications and Allergies Home Medications Medication Instructions Recorded Confirmed Type aspirin 81 mg tablet,delayed 162 mg PO QPM 05/10/18 06/01/22 History release calcium carbonate 333 mg-magnesium 1 tab PO QAM 05/10/18 06/01/22 History oxide 133 mg-zinc sulf 5 mg tablet cholecalciferol (vitamin D3) 50 2,000 unit PO DAILY 05/10/18 06/01/22 History mcg (2,000 unit) capsule (Vitamin D3) epinephrine 0.3 mg/0.3 mL 0.3 ml IM PRN PRN Anaphylaxis 05/10/18 06/01/22 History injection, auto-injector (EpiPen 2-Lorenzo) fluoxetine 10 mg tablet 10 mg PO DAILY 05/10/18 06/01/22 History meclizine 25 mg tablet 25 mg PO QAM 05/10/18 06/01/22 History multivitamin 1 tab PO DAILY 05/10/18 06/01/22 History carbidopa 10 mg-levodopa 100 mg 1 tab PO TID Parkinsons 10/26/18 06/01/22 History tablet donepezil 10 mg tablet 10 mg PO BEDTIME 03/20/19 06/01/22 History famotidine 10 mg tablet (Pepcid AC) 10 mg PO BID 03/20/19 06/01/22 History nitrofurantoin 100 mg PO BID #14 caps 12/11/20 Rx monohydrate/macrocrystals 100 mg capsule (Macrobid) ciprofloxacin HCl 500 mg tablet 500 mg PO BID #14 tabs 12/30/20 Rx (Cipro) nitrofurantoin macrocrystal 100 mg 100 mg PO BID #14 caps 01/01/21 Rx capsule Allergies Allergy/AdvReac Type Severity Reaction Status Date / Time bee venom protein (honey bee) Allergy Severe Anaphylaxis Verified 11/04/20 12:03 avocado AdvReac Intermediate Nausea, Verified 11/04/20 12:03 vomiting gabapentin AdvReac Intermediate Hallucinati Verified 11/04/20 12:03 ng hydromorphone [From Dilaudid] AdvReac Intermediate Vomiting Verified 11/04/20 12:03 Review of Systems Review of Systems Narrative: 14 systems reviewed and negative aside from what is noted in HPI Exam Vital Signs (past 8 hours): - 05/31/22 23:00 06/01/22 05:30 Temperature 98.0 F 98.0 F Pulse Rate 72 67 Respiratory Rate 16 18 Blood Pressure 132/57 L 134/57 L Pulse Oximetry 98 95 Oxygen Flow Rate 0 0 Oxygen Delivery Method Room Air Oxygen Flow Rate 0 Narrative Exam Narrative: GEN: no acute distress HEENT: moist mucous membranes, no JVD NECK: PERRL, no JVD CV: regular rate and rhythm, no murmurs PULM: clear bilaterally, no wheezes, rhonchi, rales ABD: soft, nontender, nondistended, normal bowel sounds EXT: warm and well perfused, no edema NEURO: no focal deficits noted Objective Labs Result Diagrams: 06/01/22 05:37 06/01/22 05:37 Labs: Laboratory Results - last 24 hr 05/31/22 05/31/22 05/31/22 17:12 18:00 18:00 WBC 10.5 RBC 3.16 L Hgb 10.8 L Hct 31.5 L MCV 99.4 MCH 34.1 H MCHC 34.3 RDW 13.4 Plt Count 221 Neut % (Auto) 71.4 Lymph % (Auto) 14.4 L [place] % (Auto) 10.6 Eos % (Auto) 2.9 Baso % (Auto) 0.7 Neut # (Auto) 7500 H Lymph # (Auto) 1500 [place] # (Auto) 1100 H Eos # (Auto) 300 Baso # (Auto) 100 PT 13.2 H INR 1.2 APTT 26 Sodium Potassium Chloride Carbon Dioxide BUN Creatinine Estimated GFR BUN/Creatinine Ratio Glucose Calcium Total Bilirubin AST ALT Alkaline Phosphatase Total Protein SARS-CoV-2 (PCR) Blood Type A Positive Antibody Screen Negative 05/31/22 05/31/22 06/01/22 18:00 18:34 05:37 WBC 7.5 RBC 2.46 L Hgb 8.3 L Hct 24.4 L MCV 99.2 MCH 33.9 MCHC 34.1 RDW 13.1 Plt Count 188 Neut % (Auto) 40.1 L D Lymph % (Auto) 40.1 H D [place] % (Auto) 13.8 Eos % (Auto) 5.3 H Baso % (Auto) 0.7 Neut # (Auto) 3000 Lymph # (Auto) 3000 [place] # (Auto) 1000 H Eos # (Auto) 400 Baso # (Auto) 100 PT INR APTT Sodium 138 Potassium 3.9 Chloride 98 Carbon Dioxide 26 BUN 31 H Creatinine 1.46 H Estimated GFR 47 L BUN/Creatinine Ratio 21.2 Glucose 99 Calcium 8.0 L Total Bilirubin 0.3 AST 31 ALT 18 Alkaline Phosphatase 88 Total Protein 7.3 SARS-CoV-2 (PCR) Positive H Blood Type Antibody Screen 06/01/22 05:37 WBC RBC Hgb Hct MCV MCH MCHC RDW Plt Count Neut % (Auto) Lymph % (Auto) [place] % (Auto) Eos % (Auto) Baso % (Auto) Neut # (Auto) Lymph # (Auto) [place] # (Auto) Eos # (Auto) Baso # (Auto) PT INR APTT Sodium 136 L Potassium 3.4 Chloride 103 Carbon Dioxide 26 BUN 25 H Creatinine 1.35 H Estimated GFR 51 L BUN/Creatinine Ratio 18.5 Glucose 86 Calcium 7.4 L Total Bilirubin AST ALT Alkaline Phosphatase Total Protein SARS-CoV-2 (PCR) Blood Type Antibody Screen Assessment & Plan Assessment & Plan narrative: 1. GI bleed, likely lower -NPO -suspect lower GI bleed, possibly diverticular bleed vs colitis -given findings on CT of colitis will treat with antibiotics for now -consult surgery for possible scope -for now continue IV PPI BID 2. COVID positive -not requiring oxygen -no indication for steroids or remdesivir 3. Presumed parkinsons disease -continue sinemet -hold donepezil CODE: Full Proxy: Kiki Arriola, Time Spent With Patient Critical Care time: I spent a total of [] minutes of critical care time on this patient's care today; this time is exclusive of procedural time. Quality VTE Deep Vein Thrombosis/Pulmonary Embolism Present on Admission: No MIPS - Meds 'Current medications' to include all prescriptions, [id number] products, herbals, cannabis/cannabidiol products, and vitamin/mineral/dietary (nutritional) supplements. I have utilized all available resources to obtain, update, or review the patient?s current medications. [If Yes, STOP here]: Yes
[2022-06-01] MEDS: SODIUM CHLORIDE 0.9% 1,000 ML 100 ML IV ×2 (00:16→11:54)
[2022-06-01 05:30] VITALS: BP 134/57; PULSE 67; RESP 18; TEMP 36.7; O2SAT 95
[2022-06-01 06:26] LABS: Add Manual Diff / Slide Review NO; Basophils Absolute Auto 100 /uL (0-100); Basophils Percent Auto 0.7 % (0-2); Eosinophils Absolute Auto 400 /uL (0-450); Eosinophils Percent Auto 5.3 % (2-4); Hematocrit 24.4 % (41-53); Hemoglobin 8.3 g/dL (13.5-17.5); Lymphocytes Absolute Auto 3000 /uL (1100-4500); Lymphocytes Percent Auto 40.1 % (25-40); Mean Corpuscular HGB Conc 34.1 % (30-36); Mean Corpuscular Hemoglobin 33.9 PG (26-34); Mean Corpuscular Volume 99.2 fL (80-100); Monocytes Absolute Auto 1000 /uL (0-900); Monocytes Percent Auto 13.8 % (3-14); Neutrophils Absolute Auto 3000 /uL (1500-7000); Neutrophils Percent Auto 40.1 % (50-75); Platelet Count 188 X10^3/uL (150-400); Red Blood Cell Count 2.46 X10^6/uL (4.5-5.9); Red Cell Distribution Width 13.1 % (11.6-14.8); White Blood Cell Count 7.5 X10^3/uL (4.5-11.0)
[2022-06-01 06:35] LABS: BUN Creatinine Ratio 18.5 (6-22); Blood Urea Nitrogen 25 mg/dL (9-20); Calcium 7.4 mg/dL (8.4-10.2); Carbon Dioxide 26 mmol/L (22-32); Chloride 103 mmol/L (98-107); Estimated Glomerular Filt Rate 51 mL/min (>60); Glucose 86 mg/dL (80-110); HEMOLYSIS < 15 (0-50); Potassium 3.4 mmol/L (3.4-5.1); Sodium 136 mmol/L (137-145)
[2022-06-01 09:00] VITALS: BP 123/55; PULSE 72; RESP 17; TEMP 36.8; O2SAT 94
--- NOTE | 2022-06-01 09:12 | CM.DANOTE ---
DCP: Case received, EMR reviewed. Unable to meet with patient, he is COVID positive, but was able to get some additional information from spouse, Kiki. DCP assessment completed with information currently available. Patient is an 87 year old male who admitted yesterday evening to the care of the hospitalist team. PCP: Dr. Bryan. Payer: confirmed: [employer] [facility]. Patient came to the hospital via ambulance secondary to rectal bleeding. Patient was diagnosed with GI Bleed. Patient has history of parkinsons, and recent cholecystectomy. He was also noted to be COVID positive. Was unable to meet with patient, as he is COVID positive. Patient resides [address] in [place] with spouse, Eden. Confirmed with Kiki that patient is mostly in his wheel-chair. They have private caregivers that come in daily. Asked her how many hours, and she stated, it depends. They assist with patient's showers, toileting if needed. Patient is currently under home health services. Called Javier at [facility] to confirm, he will call back, gave him the information on patient. P: DCP to continue to follow for needs. Patient should be able to go home when medically stable to resume [facility]. Aditi Acosta RN/Fire Investigation Manager Discharge Planning/Care Management CM Discharge Assessment Start: 06/01/22 09:06 Freq: Status: Active Protocol: Document 06/01/22 09:06 (Rec: 06/01/22 09:12 [id number]) Discharge Planning Assessment Assigned Golf Course Superintendent Aditi Acosta RN/Fire Investigation Manager Advance Directives? Yes Advance Directives on File No History Provided By Patient,Significant Other, Medical Record Prior Living Arrangements House Household Members spouse Type of transporation used prior to Relies on Others admit Independent with ADL's No Is patient alert and oriented? Yes Needs Assistance With Bathing,Meal Prep,Toileting, Managing Medications,Home Chores / Shopping Caregiver for Another No DME Already Rented / Owned Wheelchair,FWW / Walker Patient/Family Preference Home with Home Health Comment Patient is with [facility] Barriers to Discharge No Comment Patient has private caregivers in the home, and [facility] Discharge Plan Home with Home Health Transportation Arrangement Spouse or caregivers? Referrals Initiated Other Additional Comment Patient is currently under [facility] services. If patient plan is SNF: Has PASSR been Yes completed? Whiteboard Updated in Patient Room with No name and ext. # of Golf Course Superintendent Comment Patient is COVID positive Review Status In Process Next Review Type Continued Stay Review
[2022-06-01] MEDS: CARBIDOPA-LEVODOPA 10/100 TABLET 1 EACH PO ×3 (09:13→21:39)
[2022-06-01] MEDS: ACETAMINOPHEN 325 MG TABLET 650 MG PO (09:13)
[2022-06-01] MEDS: PIPERACILLIN/TAZO 4.5 GM in SODIUM CHLORIDE 0.9% 100 ML IV (09:14)
[2022-06-01] MEDS: FLUoxetine 10 MG CAPSULE PO (09:14)
[2022-06-01] MEDS: PANTOPRAZOLE 40 MG VIAL IV ×2 (09:14→21:39)
[2022-06-01] MEDS: NYSTATIN POWDER 15GM 1 APPLIC TOP (09:17)
[2022-06-01 10:00] VITALS: O2SAT 96
--- NOTE | 2022-06-01 10:14 | PM.CN ---
History of Present Illness Consult details Date Patient Seen: 06/01/22 Time Patient Seen: 10:14 Chief complaint: blood in stool cholecystectomy Reason for consult: lower GI bleed Requesting provider: Luis Daniel Cloud Narrative: New onset BRBPR. Anemia, h/o sigmoid colectomy for colovesical fistula, 2019. No pain. Can't tell if he is still bleeding. Meds Home Medications and Allergies Home Medications Medication Instructions Recorded Confirmed Type aspirin 81 mg tablet,delayed 162 mg PO QPM 05/10/18 06/01/22 History release calcium carbonate 333 mg-magnesium 1 tab PO QAM 05/10/18 06/01/22 History oxide 133 mg-zinc sulf 5 mg tablet cholecalciferol (vitamin D3) 50 2,000 unit PO DAILY 05/10/18 06/01/22 History mcg (2,000 unit) capsule (Vitamin D3) epinephrine 0.3 mg/0.3 mL 0.3 ml IM PRN PRN Anaphylaxis 05/10/18 06/01/22 History injection, auto-injector (EpiPen 2-Lorenzo) fluoxetine 10 mg tablet 10 mg PO DAILY 05/10/18 06/01/22 History meclizine 25 mg tablet 25 mg PO QAM 05/10/18 06/01/22 History multivitamin 1 tab PO DAILY 05/10/18 06/01/22 History carbidopa 10 mg-levodopa 100 mg 1 tab PO TID Parkinsons 10/26/18 06/01/22 History tablet donepezil 10 mg tablet 10 mg PO BEDTIME 03/20/19 06/01/22 History famotidine 10 mg tablet (Pepcid AC) 10 mg PO BID 03/20/19 06/01/22 History nitrofurantoin 100 mg PO BID #14 caps 12/11/20 Rx monohydrate/macrocrystals 100 mg capsule (Macrobid) ciprofloxacin HCl 500 mg tablet 500 mg PO BID #14 tabs 12/30/20 Rx (Cipro) nitrofurantoin macrocrystal 100 mg 100 mg PO BID #14 caps 01/01/21 Rx capsule Allergies Allergy/AdvReac Type Severity Reaction Status Date / Time bee venom protein (honey bee) Allergy Severe Anaphylaxis Verified 11/04/20 12:03 avocado AdvReac Intermediate Nausea, Verified 11/04/20 12:03 vomiting gabapentin AdvReac Intermediate Hallucinati Verified 11/04/20 12:03 ng hydromorphone [From Dilaudid] AdvReac Intermediate Vomiting Verified 11/04/20 12:03 Review of Systems Review of Systems ROS: Yes All systems reviewed with the patient and are negative except as otherwise documented Exam Vital Signs (past 8 hours): - 06/01/22 05:30 06/01/22 09:00 Temperature 98.0 F 98.3 F Pulse Rate 67 72 Respiratory Rate 18 17 Blood Pressure 134/57 L 123/55 L Pulse Oximetry 95 94 Oxygen Flow Rate 0 0 Oxygen Delivery Method Room Air Oxygen Flow Rate 0 Const General: cooperative and comfortable Nutritional Appearance: overweight HENMT Head: normal to inspection, normocephalic and atraumatic Eyes Sclera: sclerae normal Neck Neck: trachea midline Resp Effort & Inspection: normal respiratory effort and able to speak in complete sentences Neuro Cognition: normal cognition Psych Mental Status: mental status grossly normal Judgment: judgment good Objective Labs Result Diagrams: 06/01/22 05:37 06/01/22 05:37 Labs: Laboratory Results - last 24 hr 05/31/22 05/31/22 05/31/22 17:12 18:00 18:00 WBC 10.5 RBC 3.16 L Hgb 10.8 L Hct 31.5 L MCV 99.4 MCH 34.1 H MCHC 34.3 RDW 13.4 Plt Count 221 Neut % (Auto) 71.4 Lymph % (Auto) 14.4 L [place] % (Auto) 10.6 Eos % (Auto) 2.9 Baso % (Auto) 0.7 Neut # (Auto) 7500 H Lymph # (Auto) 1500 [place] # (Auto) 1100 H Eos # (Auto) 300 Baso # (Auto) 100 PT 13.2 H INR 1.2 APTT 26 Sodium Potassium Chloride Carbon Dioxide BUN Creatinine Estimated GFR BUN/Creatinine Ratio Glucose Calcium Total Bilirubin AST ALT Alkaline Phosphatase Total Protein SARS-CoV-2 (PCR) Blood Type A Positive Antibody Screen Negative 05/31/22 05/31/22 06/01/22 18:00 18:34 05:37 WBC 7.5 RBC 2.46 L Hgb 8.3 L Hct 24.4 L MCV 99.2 MCH 33.9 MCHC 34.1 RDW 13.1 Plt Count 188 Neut % (Auto) 40.1 L D Lymph % (Auto) 40.1 H D [place] % (Auto) 13.8 Eos % (Auto) 5.3 H Baso % (Auto) 0.7 Neut # (Auto) 3000 Lymph # (Auto) 3000 [place] # (Auto) 1000 H Eos # (Auto) 400 Baso # (Auto) 100 PT INR APTT Sodium 138 Potassium 3.9 Chloride 98 Carbon Dioxide 26 BUN 31 H Creatinine 1.46 H Estimated GFR 47 L BUN/Creatinine Ratio 21.2 Glucose 99 Calcium 8.0 L Total Bilirubin 0.3 AST 31 ALT 18 Alkaline Phosphatase 88 Total Protein 7.3 SARS-CoV-2 (PCR) Positive H Blood Type Antibody Screen 06/01/22 05:37 WBC RBC Hgb Hct MCV MCH MCHC RDW Plt Count Neut % (Auto) Lymph % (Auto) [place] % (Auto) Eos % (Auto) Baso % (Auto) Neut # (Auto) Lymph # (Auto) [place] # (Auto) Eos # (Auto) Baso # (Auto) PT INR APTT Sodium 136 L Potassium 3.4 Chloride 103 Carbon Dioxide 26 BUN 25 H Creatinine 1.35 H Estimated GFR 51 L BUN/Creatinine Ratio 18.5 Glucose 86 Calcium 7.4 L Total Bilirubin AST ALT Alkaline Phosphatase Total Protein SARS-CoV-2 (PCR) Blood Type Antibody Screen [facility] Medical History Anemia Cholelithiasis Colovesical fistula Compression fracture of L1 vertebra Fall Gastroesophageal reflux Hypertension Pubic ramus fracture Right femoral fracture Sigmoid diverticulitis Surgical History History of left hip replacement Hx of colectomy (12/12/18) 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 Plan: bowel prep today with colonoscopy tomorrow COVID-19 COVID-19 status: Positive Time Spent With Patient Time with patient: less than 30 minutes Critical Care time: I spent a total of [] minutes of critical care time on this patient's care today; this time is exclusive of procedural time.
--- NOTE | 2022-06-01 11:04 | PM.PN.1 ---
Subjective Subjective Date Patient Seen: 06/01/22 Time Patient Seen: 08:00 Interval history: He has noted no further bleeding. He has no abdominal pain. His cough is improving. He does not feel short of breath. Exam Vital Signs (past 8 hours): - 06/01/22 05:30 06/01/22 09:00 Temperature 98.0 F 98.3 F Pulse Rate 67 72 Respiratory Rate 18 17 Blood Pressure 134/57 L 123/55 L Pulse Oximetry 95 94 Oxygen Flow Rate 0 0 Oxygen Delivery Method Room Air Oxygen Flow Rate 0 Narrative Exam Narrative: GEN: no acute distress HEENT: moist mucous membranes, no JVD NECK: PERRL, no JVD CV: regular rate and rhythm, no murmurs PULM: clear bilaterally, no wheezes, rhonchi, rales ABD: soft, nontender, nondistended, normal bowel sounds EXT: warm and well perfused, no edema NEURO: no focal deficits noted Objective Labs Result Diagrams: 06/01/22 05:37 06/01/22 05:37 Labs: Laboratory Results - last 24 hr 05/31/22 05/31/22 05/31/22 17:12 18:00 18:00 WBC 10.5 RBC 3.16 L Hgb 10.8 L Hct 31.5 L MCV 99.4 MCH 34.1 H MCHC 34.3 RDW 13.4 Plt Count 221 Neut % (Auto) 71.4 Lymph % (Auto) 14.[address] [place] % (Auto) 10.6 Eos % (Auto) 2.9 Baso % (Auto) 0.7 Neut # (Auto) 7500 H Lymph # (Auto) 1500 [place] # (Auto) 1100 H Eos # (Auto) 300 Baso # (Auto) 100 PT 13.2 H INR 1.2 APTT 26 Sodium Potassium Chloride Carbon Dioxide BUN Creatinine Estimated GFR BUN/Creatinine Ratio Glucose Calcium Total Bilirubin AST ALT Alkaline Phosphatase Total Protein SARS-CoV-2 (PCR) Blood Type A Positive Antibody Screen Negative 05/31/22 05/31/22 06/01/22 18:00 18:34 05:37 WBC 7.5 RBC 2.46 L Hgb 8.3 L Hct 24.4 L MCV 99.2 MCH 33.9 MCHC 34.1 RDW 13.1 Plt Count 188 Neut % (Auto) 40.1 L D Lymph % (Auto) 40.[address] % (Auto) 13.8 Eos % (Auto) 5.3 H Baso % (Auto) 0.7 Neut # (Auto) 3000 Lymph # (Auto) 3000 [place] # (Auto) 1000 H Eos # (Auto) 400 Baso # (Auto) 100 PT INR APTT Sodium 138 Potassium 3.9 Chloride 98 Carbon Dioxide 26 BUN 31 H Creatinine 1.46 H Estimated GFR 47 L BUN/Creatinine Ratio 21.2 Glucose 99 Calcium 8.0 L Total Bilirubin 0.3 AST 31 ALT 18 Alkaline Phosphatase 88 Total Protein 7.3 SARS-CoV-2 (PCR) Positive H Blood Type Antibody Screen 06/01/22 05:37 WBC RBC Hgb Hct MCV MCH MCHC RDW Plt Count Neut % (Auto) Lymph % (Auto) [place] % (Auto) Eos % (Auto) Baso % (Auto) Neut # (Auto) Lymph # (Auto) [place] # (Auto) Eos # (Auto) Baso # (Auto) PT INR APTT Sodium 136 L Potassium 3.4 Chloride 103 Carbon Dioxide 26 BUN 25 H Creatinine 1.35 H Estimated GFR 51 L BUN/Creatinine Ratio 18.5 Glucose 86 Calcium 7.4 L Total Bilirubin AST ALT Alkaline Phosphatase Total Protein SARS-CoV-2 (PCR) Blood Type Antibody Screen [facility] Medical History Anemia Cholelithiasis Colovesical fistula Compression fracture of L1 vertebra Fall Gastroesophageal reflux Hypertension Pubic ramus fracture Right femoral fracture Sigmoid diverticulitis Surgical History History of left hip replacement Hx of colectomy (12/12/18) 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 GI bleed, likely lower -NPO -suspect lower GI bleed, possibly diverticular bleed vs colitis -given findings on CT of colitis will treat with antibiotics for now -consult surgery for possible scope, with plan for bowel prep tonight -for now continue IV PPI BID 2. COVID positive -not requiring oxygen -no indication for steroids or remdesivir 3. Presumed parkinsons disease -continue sinemet -hold donepezil CODE: Full Proxy: Kiki Zeinab, Time Spent With Patient Critical Care time: I spent a total of [] minutes of critical care time on this patient's care today; this time is exclusive of procedural time. Quality VTE Deep Vein Thrombosis/Pulmonary Embolism Present on Admission: No
[2022-06-01] MEDS: PEG3350/SOD SULF,BICARB,CL/KCL 4,000 ML SOLUTION 2000 ML PO (11:53)
[2022-06-01] MEDS: PIPERACILLIN/TAZO 3.375 GM in SODIUM CHLORIDE 0.9% 100 ML IV ×2 (12:04→21:39)
[2022-06-01 14:00] VITALS: O2SAT 95
[2022-06-01] MEDS: ONDANSETRON 4 MG/2 ML INJ IV (15:38)
[2022-06-01 16:00] VITALS: BP 125/67; PULSE 67; RESP 17; TEMP 36.7; O2SAT 95
[2022-06-01 19:50] VITALS: BP 126/58; PULSE 65; RESP 19; TEMP 36.3; O2SAT 97
[2022-06-02] VITALS (11 sets, daily range): BP systolic 108–131; BP diastolic 49–80; PULSE 60–67; RESP 16–18; TEMP 35.6–36.9; O2SAT 96–100
[2022-06-02] MEDS: PIPERACILLIN/TAZO 3.375 GM in SODIUM CHLORIDE 0.9% 100 ML IV ×3 (05:02→22:06)
[2022-06-02 05:11] LABS: Hematocrit 26.8 % (41-53); Hemoglobin 9.1 g/dL (13.5-17.5); Mean Corpuscular HGB Conc 33.9 % (30-36); Mean Corpuscular Hemoglobin 33.8 PG (26-34); Mean Corpuscular Volume 99.9 fL (80-100); Platelet Count 189 X10^3/uL (150-400); Red Blood Cell Count 2.69 X10^6/uL (4.5-5.9); Red Cell Distribution Width 13.2 % (11.6-14.8)
[2022-06-02 05:18] LABS: BUN Creatinine Ratio 11.4 (6-22); Blood Urea Nitrogen 16 mg/dL (9-20); Calcium 7.5 mg/dL (8.4-10.2); Carbon Dioxide 22 mmol/L (22-32); Chloride 108 mmol/L (98-107); Estimated Glomerular Filt Rate 49 mL/min (>60); Glucose 75 mg/dL (80-110); HEMOLYSIS < 15 (0-50); Potassium 3.9 mmol/L (3.4-5.1); Sodium 138 mmol/L (137-145)
[2022-06-02] MEDS: PANTOPRAZOLE 40 MG VIAL IV ×2 (09:19→22:12)
[2022-06-02] MEDS: FLUoxetine 10 MG CAPSULE PO (09:19)
[2022-06-02] MEDS: CARBIDOPA-LEVODOPA 10/100 TABLET 1 EACH PO ×3 (09:19→22:11)
[2022-06-02] MEDS: NYSTATIN POWDER 15GM 1 APPLIC TOP ×2 (09:30→22:39)
[2022-06-02] MEDS: ONDANSETRON 4 MG/2 ML INJ IV (12:19)
--- NOTE | 2022-06-02 12:32 | PM.PN.1 ---
Subjective Subjective Date Patient Seen: 06/02/22 Interval history: 87 yo male admitted with LGI bleed. CT showed colitis findings. Patient scheduled for c-scope today. Last 2 bowel movements have been without gross bleeding. Exam Vital Signs (past 8 hours): - 06/02/22 06:30 06/02/22 09:05 Temperature 97.5 F L 96.0 F L Pulse Rate 66 62 Respiratory Rate 18 16 Blood Pressure 114/80 115/49 L Pulse Oximetry 96 97 Oxygen Flow Rate 0 0 Oxygen Delivery Method Room Air Oxygen Flow Rate 0 Narrative Exam Narrative: General: alert, NAD, breathing non-labored Lungs: few lower lobe crackles CV: RRR Abd: soft, nt Ext: no edema Neuro: nl affect and speech Objective Labs Result Diagrams: 06/02/22 04:55 06/02/22 04:55 Labs: Laboratory Results - last 24 hr 06/02/22 06/02/22 04:55 04:55 WBC 8.0 RBC 2.69 L Hgb 9.1 L Hct 26.8 L MCV 99.9 MCH 33.8 MCHC 33.9 RDW 13.2 Plt Count 189 Sodium 138 Potassium 3.9 Chloride 108 H Carbon Dioxide 22 BUN 16 Creatinine 1.40 H Estimated GFR 49 L BUN/Creatinine Ratio 11.4 Glucose 75 L Calcium 7.5 L PFSH Medical History Anemia Cholelithiasis Colovesical fistula Compression fracture of L1 vertebra Fall Gastroesophageal reflux Hypertension Pubic ramus fracture Right femoral fracture Sigmoid diverticulitis Surgical History History of left hip replacement Hx of colectomy (12/12/18) 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 GI bleed, likely lower -NPO -suspect lower GI bleed, possibly diverticular bleed vs colitis -on Zosyn given findings on CT of colitis -appreciate surg consult -d/c PPI -hold pt's ASA -NS 50 cc/hr -H/H stable 2. COVID positive -not requiring oxygen -no indication for steroids or remdesivir 3. Presumed parkinsons disease -continue sinemet -pt is reportedly wheel chair bound, has caregivers at home Hopefully home tomorrow if H/H remains stable. CODE: Full Proxy: Kiki Rondonus, Time Spent With Patient Critical Care time: I spent a total of [] minutes of critical care time on this patient's care today; this time is exclusive of procedural time. Quality VTE Deep Vein Thrombosis/Pulmonary Embolism Present on Admission: No
--- NOTE | 2022-06-02 15:34 | CM.DPC ---
DCP Cont: Discussed patient during team rounds. He will be having a scope today, time is unclear. Spoke to nurse, Itzel, who is taking care of patient. He is alert and oriented, has home caregivers, does have limited mobility at his baseline. Spoke to Javier at [facility], and confirmed that home health was ordered, but has not yet been seen. He did state, would be good to have a new face to face. Let him know that this DC Return To Service Inspector will do a new face to face. Original order was RN, P.T, O.T, will keep the same. They do not have a bath aide that serves the [facility]. P: DCP to continue to follow. Will complete a face to face. Plan is home with [facility] when stable, he does have private caregivers. Aditi Acosta RN/Heel Seat Sander
[2022-06-03] VITALS (10 sets, daily range): BP systolic 98–132; BP diastolic 42–82; PULSE 59–70; RESP 15–20; TEMP 36.1–37.7; O2SAT 96–99; BMI 33.6
[2022-06-03] MEDS: SODIUM CHLORIDE 0.9% 1,000 ML 100 ML IV (03:53)
[2022-06-03] MEDS: PIPERACILLIN/TAZO 3.375 GM in SODIUM CHLORIDE 0.9% 100 ML IV (05:28)
[2022-06-03 05:30] LABS: Hematocrit 24.4 % (41-53); Hemoglobin 8.2 g/dL (13.5-17.5)
[2022-06-03 05:44] LABS: BUN Creatinine Ratio 6.9 (6-22); Blood Urea Nitrogen 9 mg/dL (9-20); Calcium 7.4 mg/dL (8.4-10.2); Carbon Dioxide 22 mmol/L (22-32); Chloride 110 mmol/L (98-107); Estimated Glomerular Filt Rate 54 mL/min (>60); Glucose 89 mg/dL (80-110); HEMOLYSIS < 15 (0-50); Potassium 3.7 mmol/L (3.4-5.1); Sodium 138 mmol/L (137-145)
[2022-06-03 08:46] LABS: COVID19 -Nasal RAPID POSITIVE (Negative)
[2022-06-03] MEDS: CARBIDOPA-LEVODOPA 10/100 TABLET 1 EACH PO ×2 (09:51→16:32)
[2022-06-03] MEDS: PANTOPRAZOLE 40 MG VIAL IV (09:52)
[2022-06-03] MEDS: FLUoxetine 10 MG CAPSULE PO (09:52)
[2022-06-03] MEDS: NYSTATIN POWDER 15GM 1 APPLIC TOP (09:52)
--- NOTE | 2022-06-03 12:34 | PC.NURSE ---
Addendum entered by Sunny Francisco R.N. 06/03/22 18:26: Jihan post colonoscopy well. Taking po without issue. called about plan. Discussed plan and d/c with . Caregiver Patt will transport Pt home. D/c instructions given to caregiver. Pt agreeable with [facility]. Original Note: Pt off floor at12:15 for colonoscopy. notified Pt is in procedure. Will run zosyn when he comes back. Ok with Dr. Samson.
--- NOTE | 2022-06-03 13:38 | PM.PREOP ---
Pre-operative Note Interval Note History & Physical reviewed/Exam performed by Physician: Yes Changes to H&P: No H&P completed within 30 days and has changed as indicated here:: I discussed risks benefits and alternatives of colonoscopy for GI bleeding including but not limited to perforation of the colon and need for exploratory surgery in the rare case. He understands this and would like to proceed.
--- NOTE | 2022-06-03 14:16 | P.OP.COLON_ITS ---
Procedure & Clinicians Study performed: Colonoscopy Same procedure as scheduled: Yes Indications: GI bleeding Surgeon: Ayaka Childress Procedure Notes Procedure in detail: Patient was taken the endoscopy suite placed in left lateral decubitus position. A time-out was performed. Conscious sedation was performed by anesthesiologist, Dr. Arana. A digital rectal exam was performed no masses or strictures. There was decreased sphincter tone. A colonoscope was introduced into the anal canal and advanced through to the cecum. A photograph was taken. The prep was not great it was between a [place] bowel prep score 1-2. With irrigation I think I achieved an adequate exam and I did not appreciate any small polyps. Certainly I did not see any large lesions. There were several scattered diverticula even on the right side of the colon. There were no stigmata of active or past bleeding. A previous surgical staple line was seen and was normal, photograph was taken. Hemorrhoidal piles looked normal a photograph was taken. Findings: divertiulosis Impression: I saw no evidence of active or recent bleeding in the colon, other than scattered diverticula throughout the entire colon, no source is appreciated.
--- NOTE | 2022-06-03 14:34 | SUR.PHASEI ---
Report called to Alicia.
--- NOTE | 2022-06-03 15:04 | SUR.PHASEI ---
Patient transferred to the floor by stretcher with glasses and tele. Report given to Sunny. Patient transferred to the bed by slider board. IV patent.
[2022-06-03 15:56] LABS: Albumin 3.5 g/dL (3.5-5.0); Albumin Globulin Ratio 0.9 (1.0-2.8); Globulin 3.8 g/dL (1.7-4.1); HEMOLYSIS 18 (0-50)
[2022-06-03 15:56] LABS: Hematocrit 27.9 % (41-53); Hemoglobin 9.4 g/dL (13.5-17.5)
--- NOTE | 2022-06-03 16:20 | P.DS_ITS ---
History of Present Illness History of Present Illness Date Patient Seen: 06/03/22 Chief complaint: blood in stool cholecystectomy Narrative: Per admitting provider, Mr. Arriola is a 87M with PMH HTN, GERD who comes in to the hospital with bright red blood per rectum. He is wheelchair bound after lower extremity injuries in the past. He did have a cholecystectomy just over a week ago in [place]. He did well. His abdominal pain is minimal. He is not taking any anticoagulation. Today he noticed a large amount of bright red blood when he had a bowel movement. 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 For the fistula he did have resection and anastamosis done in 2019. In the ED workup was done vitals were notable for afebrile, normal blood pres sure. Labs notable for WBC 10.5, hgb 10.8, plts 221. INR 12. Creatinine 1.46. COVID positive. CT noted for segmental wall thickening in the rectosigmoid colon, and diverticulosis. He was admitte for further treatment. Discharge Providers Provider Date of admission: 05/31/22 22:00 Discharge Date: 06/03/22 Primary care physician: Kenya Bryan PA-C Consults: 06/01/22 06:53 Consult to General Surgery Routine Comment: Consulting Provider: Leigh Mcbride Reason for consultation: gi bleed Has provider been notified: No Discharge provider: Jesus Samson DO Summary Hospital Course Discharge Diagnosis: 1. GI bleed, likely lower, resolved with acute blood loss anemia 2. COVID positive 3. Parkinson's disease with dementia 4. CKD stage III Hospital Course: This was an 87-year-old gentleman with a past medical history of Parkinson's disease with dementia, CKD stage 3 admitted with bright red blood per rectum. His CT scan showed mild distal colitis, and he was initially empirically started on antibiotic therapy despite fever or leukocytosis for possible diverticulitis with piperacillin tazobactam. His hemoglobin remained stable over the course of his stay, waxing and waning between 8 and 9 without any fusion. Colonoscopy was performed which did not reveal any source of active bleeding, but did reveal mild diverticulosis. It was also mentioned that no inflammation was seen on colonoscopy. The patient had no further bowel movements, and was eating and tolerating a diet and was discharged home. Further outpatient workup is beatris mmended with his primary care provider. Further evaluation upper endoscopy to simply continue to monitor his hemoglobin and hematocrit to see if it continues to improve. No changes were recommended to his home medications at the time of discharge. Time Spent with Patient Time spent: Greater than 30 minutes Exam Vital Signs (past 8 hours): - 06/03/22 10:00 06/03/22 11:58 06/03/22 12:24 Temperature 99.8 F H 98.6 F Pulse Rate 68 70 Respiratory Rate 16 17 Blood Pressure 119/52 L 132/60 Pulse Oximetry 97 98 98 Oxygen Delivery Method Room Air Room Air Oxygen Flow Rate 0 06/03/22 14:25 06/03/22 14:34 06/03/22 14:29 Temperature 96.9 F L 98.1 F Pulse Rate 59 L 63 64 Respiratory Rate 20 16 20 Blood Pressure 98/42 L 113/49 L 104/42 L Pulse Oximetry 99 99 96 Oxygen Delivery Method Room Air Room Air Room Air Oxygen Flow Rate 06/03/22 15:16 Temperature 97.9 F Pulse Rate 63 Respiratory Rate 16 Blood Pressure 126/82 Pulse Oximetry 99 Oxygen Delivery Method Oxygen Flow Rate 0 Oxygen Delivery Method Room Air Oxygen Flow Rate 0 Narrative Exam Narrative: General: alert, NAD, breathing non-labored Lungs: few lower lobe crackles CV: RRR Abd: soft, nt Ext: no edema Neuro: nl affect and speech Objective Labs Result Diagrams: 06/03/22 13:00 06/03/22 05:20 Labs: Laboratory Results - last 24 hr 05/31/22 06/03/22 06/03/22 18:00 05:20 05:20 Hgb 8.2 L Hct 24.4 L Sodium 138 Potassium 3.7 Chloride 110 H Carbon Dioxide 22 BUN 9 Creatinine 1.30 H Estimated GFR 54 L BUN/Creatinine Ratio 6.9 Glucose 89 Calcium 7.4 L Albumin 3.5 Globulin 3.8 Albumin/Globulin Ratio 0.9 L SARS-CoV-2 (PCR) 06/03/22 06/03/22 08:14 13:00 Hgb 9.4 L Hct 27.9 L Sodium Potassium Chloride Carbon Dioxide BUN Creatinine Estimated GFR BUN/Creatinine Ratio Glucose Calcium Albumin Globulin Albumin/Globulin Ratio SARS-CoV-2 (PCR) Positive H PENDING SALE TO [facility] Medical History Anemia Cholelithiasis Colovesical fistula Compression fracture of L1 vertebra Fall Gastroesophageal reflux Hypertension Pubic ramus fracture Right femoral fracture Sigmoid diverticulitis Surgical History History of left hip replacement Hx of colectomy (12/12/18) Status post left shoulder hemiarthroplasty (11/01/18) Family History Father Lymphoma Mother Cancer Dementia Brother Cancer Smoker Social History marital status: household members: spouse occupational status: previously employed Smoking Status: Never smoker alcohol intake: former substance use type: does not use Discharge Plan Discharge Plan Patient Disposition: Home Provider Discharge Comment: Patient was admitted to the hospital with GI bleeding. Colonoscopy was performed and was unremarkable, blood counts remained stable and slightly improving. No medication changes are recommended. Please follow up with primary care provider as soon as possible to continue evaluation as an outpatient. Discharge orders & Medications Prescriptions: Continued fluoxetine 10 mg Tablet 10 mg PO DAILY aspirin 81 mg Tablet,Delayed Release (Dr/Ec) 162 mg PO QPM meclizine 25 mg Tablet 25 mg PO QAM epinephrine [EpiPen 2-Lorenzo] 0.3 mg/0.3 mL Auto-Injector 0.3 ml IM PRN PRN (Reason: Anaphylaxis) multivitamin Tablet 1 tab PO DAILY carbidopa-levodopa 10-100 mg Tablet 1 tab PO TID famotidine [Pepcid AC] 10 mg Tablet 10 mg PO BID donepezil 10 mg Tablet 10 mg PO BEDTIME Discontinued nitrofurantoin monohyd/m-cryst [Macrobid] 100 mg capsule 100 mg PO BID Qty: 14 0RF Rx Instructions: must administer with a meal/food nitrofurantoin macrocrystal 100 mg capsule 100 mg PO BID Qty: 14 0RF Rx Instructions: must administer with a meal/food cholecalciferol (vitamin D3) [Vitamin D3] 2,000 unit Capsule 2,000 unit PO DAILY Label Comments: has not taken since recent hospitalization calcium carb-mag ox-zinc sulf 333-133-5 mg Tablet 1 tab PO QAM Label Comments: has not taken since recent hospitalization Follow up/Referrals: Kenya Bryan PA-C [Primary Care Provider] - Diet/Activity/Treatments Diet: Diet as Tolerated Activity: As tolerated Visit Report/Discharge Packet Instructions: High-Fiber Diet, DI for Heart Failure, DI for Colon Polypectomy, DI for Hemorrhoid Banding, DI for Hemorrhoids, DI for Prescription Opioid Use, DI for Diverticulosis Stand Alone Forms: Patient Portal/API, Stroke Signs & Symptoms Discharge Data Primary Care Provider: Kenya Bryan Quality VTE Deep Vein Thrombosis/Pulmonary Embolism Present on Admission: No
== END 2022-06-03 18:00 | disposition home health service (06) | DRG 377 ==
LOC: ED 19:20 → AC 22:01
PROVIDERS: Emergency Medicine; Internal Medicine; Surgery; Admitting Provider Internal Medicine; Emergency Provider Emergency Medicine; PCP Physician Assistant Medical; Referring Provider Emergency Medicine; Visit Provider Internal Medicine
PROC: 0DJD8ZZ Inspection of Lower Intestinal Tract, Via Natural or Artificial Opening Endoscopic (ICD-10-PCS; CPT 45378; principal; 2022-06-03 11:45)
DX: K92.2 Gastrointestinal hemorrhage, unspecified (principal); U07.1 COVID-19; D62 Acute posthemorrhagic anemia; G20 Parkinson's disease; F02.80 Dementia in other diseases classified elsewhere, unspecified severity, without behavioral disturbance, psychotic disturbance, mood disturbance, and anxiety; K21.9 Gastro-esophageal reflux disease without esophagitis
CPT/HCPCS: 36415; 45378; 74177; 80048; 80053; 82272; 85014; 85018; 85025; 85027; 85610; 85730; 86850; 86900; 86901; 87635; 93005; 96374; 99232; 99284; C9803; C9113; J2405; J2543; J2704; Q9967

== ENCOUNTER 2024-03-06 11:18 | Emergency (ER) | payer MEDICARE, SELFPAY ==
[2022-05-31 22:12] VITALS: BMI 33.6
[2024-03-06] VITALS (11 sets, daily range): BP systolic 113–149; BP diastolic 61–77; PULSE 73–103; RESP 15–22; TEMP 36.4; O2SAT 93–98; BMI 32.5
--- NOTE | 2024-03-06 11:28 | ED.GENADULT ---
HPI - General Adult General Chief complaint: Trauma Stated complaint: fall, back pain Time Seen by Provider: 03/06/24 11:19 History of Present Illness HPI narrative: 88-year-old gentleman who lives on [facility] a mobility impaired, mostly in a wheelchair, house is set up with Ric lift, history of Parkinson's disease, memory dysfunction a slid out of bed 3 days ago had a hard land more on his right knee and has developed upper back pain. The knee is not bothering him at this time he did not hit his head fall. He has not on anticoagulants. He describes the pain as midthoracic and significantly worsening to the point that 911 was called and he was brought by air lift to the ER for further evaluation. He has not complaining of chest pain, cough, dyspnea, orthopnea, abdominal pain. No nausea, vomiting or diarrhea. This morning he took an Ativan and ibuprofen to help with the back pain and did not find that it was helpful. Related Data Home Medications Medication Instructions Recorded Confirmed aspirin 81 mg tablet,delayed 162 mg PO QPM 05/10/18 08/17/22 release epinephrine 0.3 mg/0.3 mL 0.3 ml IM PRN PRN Anaphylaxis 05/10/18 08/17/22 injection, auto-injector (EpiPen 2-Lorenzo) fluoxetine 10 mg tablet 10 mg PO DAILY 05/10/18 08/17/22 meclizine 25 mg tablet 25 mg PO QAM 05/10/18 08/17/22 multivitamin 1 tab PO DAILY 05/10/18 08/17/22 carbidopa 10 mg-levodopa 100 mg 1 tab PO TID Parkinsons 10/26/18 08/17/22 tablet donepezil 10 mg tablet 10 mg PO BEDTIME 03/20/19 08/17/22 famotidine 10 mg tablet (Pepcid AC) 10 mg PO BID 03/20/19 08/17/22 Previous Rx's Medication Instructions Recorded oxycodone-acetaminophen 5 mg-325 1 tab PO Q6H PRN pain #10 tabs 03/06/24 mg tablet Allergies Allergy/AdvReac Type Severity Reaction Status Date / Time bee venom protein (honey bee) Allergy Severe Anaphylaxis Verified 08/17/22 11:54 avocado AdvReac Intermediate Nausea, Verified 08/17/22 11:54 vomiting gabapentin AdvReac Intermediate Hallucinati Verified 08/17/22 11:54 ng hydromorphone [From Dilaudid] AdvReac Intermediate Vomiting Verified 08/17/22 11:54 Review of Systems Review of Systems Narrative: Pertinent positive and negative findings as per HPI Patient History Medical History (Updated 03/06/24 @ 14:37 by Marjorie Amador MD) Sigmoid diverticulitis Anemia Gastroesophageal reflux Compression fracture of L1 vertebra Cholelithiasis Pubic ramus fracture Colovesical fistula Fall Right femoral fracture Hypertension Surgical History Hx of colectomy (12/12/18) Status post left shoulder hemiarthroplasty (11/01/18) History of left hip replacement Family History Father Lymphoma Mother Cancer Dementia Brother Cancer Smoker Social History marital status: household members: spouse occupational status: previously employed Smoking Status: Never smoker alcohol intake: former substance use type: does not use Smoking Status: Never smoker alcohol intake frequency: 0-2 drinks per day Substance Use Type: does not use Exam Narrative Exam Narrative: General: Older and chronically ill-appearing but alert and able to participate with exam HEENT: Moist mucous membranes, normal sclera with reactive pupils, Respiratory: Lungs are clear to auscultation, no wheezing no rales no rhonchi. Full and symmetrical air movement Chest: No bruising contusion along the posterior chest. No point tenderness with manipulation of ribcage or along the thoracic spine Cardiac: Regular rate and rhythm no murmurs no bruits Abdomen: Soft, nontender, good bowel tones, no flank pain, no tenderness along lumbar spine Skin: Warm and dry, no rashes, excellent skin care given his baseline immobility Neurologic: Globally weak but Grossly neurologically intact with no obvious asymmetries or abnormalities and at his baseline Extremities: No trauma, well perfused, 1+ bilateral lower extremity edema Psych: Cooperative, fluent speech Initial Vital Signs Initial Vital Signs: Vital Signs Temperature 97.5 F L 03/06/24 11:18 Pulse Rate 97 H 03/06/24 11:18 Respiratory Rate 16 03/06/24 11:18 Blood Pressure 141/65 H 03/06/24 11:18 Pulse Oximetry 95 03/06/24 11:18 Oxygen Delivery Method Nasal Cannula 03/06/24 11:18 Oxygen Flow Rate 3 03/06/24 11:18 Course Orders Ordered: ED Orders 03/06/24 11:33 CT Trauma Chest Abdomen Pelvis Stat Urinalysis and Microscopic Stat 03/06/24 11:35 Complete Blood Count AUTO DIFF Stat Comprehensive Metabolic Panel Stat Lactate (Lactic Acid) Stat Lipase Stat Magnesium Stat PT [Prothrombin Time INR] Stat PTT Partial Thromboplastin Jeison Stat Discontinued Medications Fentanyl (Fentanyl 100 Mcg/2 Ml Inj) 25 mcg IV NOW ONE Stop: 03/06/24 11:36 Last Admin: 03/06/24 11:59 Dose: 25 mcg Documented By: ОЛЬГА Ondansetron HCl (Ondansetron 4 Mg/2 Ml Inj) 4 mg IV NOW ONE Stop: 03/06/24 11:56 Last Admin: 03/06/24 11:59 Dose: 4 mg Documented By: ОЛЬГА Vital Signs Vital signs: Vital Signs - 8 hr 03/06/24 11:18 03/06/24 11:24 03/06/24 11:25 Temperature 97.5 F L Pulse Rate 97 H 103 H Respiratory Rate 16 Blood Pressure 141/65 H Pulse Oximetry 95 97 93 Oxygen Delivery Method Nasal Cannula Oxygen Flow Rate 3 2 03/06/24 11:25 03/06/24 11:30 03/06/24 11:30 Temperature Pulse Rate 96 H Respiratory Rate 17 Blood Pressure 113/77 141/65 H Pulse Oximetry 96 Oxygen Delivery Method Nasal Cannula Oxygen Flow Rate 03/06/24 12:00 03/06/24 12:00 03/06/24 12:37 Temperature Pulse Rate 92 H Respiratory Rate 19 Blood Pressure 139/63 138/63 Pulse Oximetry 96 Oxygen Delivery Method Nasal Cannula Oxygen Flow Rate 2 03/06/24 12:37 03/06/24 13:00 03/06/24 13:00 Temperature Pulse Rate 85 73 Respiratory Rate 16 15 Blood Pressure 129/61 Pulse Oximetry 98 97 Oxygen Delivery Method Nasal Cannula Nasal Cannula Oxygen Flow Rate 2 2 03/06/24 13:30 03/06/24 13:36 Temperature Pulse Rate 79 Respiratory Rate 22 Blood Pressure 149/65 H Pulse Oximetry 97 Oxygen Delivery Method Nasal Cannula Oxygen Flow Rate 2 Medical Decision Making Lab Data 03/06/24 11:35 03/06/24 11:35 Labs: Lab Results 03/06/24 03/06/24 Range/Units 11:35 13:35 WBC 13.6 H (4.5-11.0) X10^3/uL RBC 3.73 L (4.5-5.9) X10^6/uL Hgb 12.5 L (13.5-17.5) g/dL Hct 37.7 L (41-53) % MCV 101.1 H (80-100) fL MCH 33.5 (26-34) PG MCHC 33.2 (30-36) % RDW 13.8 (11.6-14.8) % Plt Count 292 (150-400) X10^3/uL Neut % (Auto) 65.6 (50-75) % Lymph % (Auto) 16.0 L (25-40) % [place] % (Auto) 12.5 (3-14) % Eos % (Auto) 5.0 H (2-4) % Baso % (Auto) 0.9 (0-2) % Neut # (Auto) 8900 H (5114-4359) /uL Lymph # (Auto) 2200 (8156-1019) /uL [place] # (Auto) 1700 H (0-900) /uL Eos # (Auto) 700 H (0-450) /uL Baso # (Auto) 100 (0-100) /uL PT 13.0 H (9.4-12.5) SECONDS INR 1.1 (0.9-1.3) APTT 26 (25.1-36.5) SECONDS Sodium 141 (137-145) mmol/L Potassium 3.7 (3.4-5.1) mmol/L Chloride 108 H (98-107) mmol/L Carbon Dioxide 24 (22-32) mmol/L BUN 48 H (9-20) mg/dL Creatinine 1.72 H (0.66-1.25) mg/dL Estimated GFR 38 L (>60) mL/min BUN/Creatinine Ratio 27.9 H (6-22) Glucose 121 H (80-110) mg/dL Lactate 2.8 H 2.2 H (0.7-2.1) mmol/L Calcium 9.1 (8.4-10.2) mg/dL Magnesium 2.0 (1.6-2.3) mg/dL Total Bilirubin 0.4 (0.2-1.3) mg/dL AST 28 (17-59) IU/L ALT 14 (<50) IU/L Alkaline Phosphatase 83 (38-126) U/L Total Protein 7.7 (6.3-8.2) g/dL Albumin 3.9 (3.5-5.0) g/dL Globulin 3.8 (1.7-4.1) g/dL Albumin/Globulin Ratio 1.0 (1.0-2.8) Lipase 186 (23-300) U/L Imaging Data CT scan - abdomen/pelvis: Radiologist's Impression: PROCEDURE: CT TRAUMA CHEST ABDOMEN PELVIS INDICATIONS: fall out of bed. increasing back pain TECHNIQUE: After the administration of intravenous contrast, 5 mm thick sections acquired from the lung apices to the symphysis. 2.5 mm thick coronal and sagittal reformats were acquired. Additional 7 mm thick coronal maximum intensity projection (MIP) reformats acquired through the lungs. Optional 10-minute delayed imaging may be performed from the kidneys to the bladder. For radiation dose reduction, the following was used: automated exposure control, adjustment of mA and/or kV according to patient size. COMPARISON: [facility], CT, CT CHEST WO CON, 05/13/2018, 10:47. FINDINGS: Image quality: Diagnostic. CHEST: Lower Neck: No enlarged lymph nodes. Thyroid: No thyroid nodules which require sonographic evaluation. Axillae: No enlarged lymph nodes. Chest Wall: No subcutaneous gas. Lungs and Pleura: No pulmonary contusions or lacerations. Previously, the lung marquez were clear. There are now subtle geographic areas of ground-glass opacities and interstitial infiltrates. There is development of mild bibasilar chronic pulmonary fibrosis. No pneumothorax or hemothorax. Mediastinum: No mediastinal hematomas. Heart size is normal. No pericardial effusion. Thoracic aorta and pulmonary arteries demonstrate normal size and enhancement. No mediastinal or hilar adenopathy. Esophagus is normal in caliber. No hiatal hernia. ABDOMEN: Liver: No lacerations. Gallbladder: Surgically absent Biliary ducts: No biliary dilation. Pancreas: Homogenous enhancement. Spleen: Homogenous enhancement without laceration or hematoma. Adrenal Glands: Symmetric enhancement. Kidneys and Ureters: Symmetric enhancement. No hydronephrosis. No solid mass. No complex renal cystic lesion which requires follow up. Stomach and Bowel: Normal colonic caliber, without significant wall thickening. Large rectal fecal impaction. Mild diverticulosis without evidence of acute diverticulitis. Peritoneum: No abnormal intraperitoneal fluid. No free air. Ventral Wall: No hernia. Abdominal Nodes: No retroperitoneal or mesenteric adenopathy by size criteria. Vessels: Aorta and inferior vena cava are normal in size. PELVIS: Pelvic Organs: Unremarkable. Bladder: Normal thickness. Pelvic Nodes: No enlarged lymph nodes. Miscellaneous: No inguinal hernias are seen. Bones: Diffuse osteopenia. Chronic compressions of L1, L2, L3, L4, and L5. Deformity of the posterior lateral left 8th, 9th, and 10th ribs is consistent with fractures, likely chronic. No clearly evident acute rib fractures are noted. Remote ORIF of the right hip. Remote left hip arthroplasty. IMPRESSION: 1. No evidence of significant sequelae of acute trauma in the chest, abdomen, and pelvis. 2. Diffuse osteopenia with chronic compressions of L1 through L5. 3. Left 8th, 9th, and 10th rib fractures are likely chronic. 4. Interval development of pulmonary findings which include chronic interstitial pulmonary fibrosis as well as, potentially, viral pneumonitis or sequelae of previous viral pneumonitis. Covid-19 pneumonia is not excluded. 5. Large rectal fecal impaction. 6. Remote cholecystectomy. Dictated by: Rodrigo Nielson M.D. on 03/06/2024 at 13:14 MDM Narrative Medical decision making narrative: CC: Lower thoracic back pain Complicating co-morbidities: Parkinson's disease, significant immobility at baseline Data collected from: patient, air lift Medical records reviewed: Medical records from May 2022 are reviewed. Patient was COVID positive and had a GI bleed about a week and a half post cholecystectomy Differential considered: Thoracic compression fracture lumbar compression fracture retroperitoneal bleeding, splenic rupture, pathologic fracture Exam documented above, pertinent findings include: Exam is relatively benign. With any movement he complains of pain but no palpation is identify exact source of pain. Lab Test results independently reviewed as above. Pertinent findings: CBC shows mild leukocytosis at 13.6. Chronic anemia has improved. Platelets are appropriate Chemistries show slight increase in creatinine from 1.3-1.7. Lactic slightly elevated at 2.8 repeat is down to 2.2 I do not see any signs of infection Imaging studies independently reviewed: CT scan of the chest abdomen and pelvis looking for new compression fractures lung fractures or retroperitoneal bleeding does not show any new findings. He has chronic lumbar compression fractures chronic left posterior rib fractures, no new findings. Radiologist does note large amount of stool throughout the colon and in the rectum. Re-evaluations: Patients to caregivers are in the room. They believe they can get at home. Reviewed findings and concerns with them, with the patient and with his who currently is still on [facility]. We will give him a short course of Percocet to help with pain in the interim. They do have a bowel regimen set up at home and recognize the need for aggressive bowel regimen over the next couple of days given his baseline constipation and expected worsening constipation in light of the narcotics will be given. Discussion: 88-year-old gentleman with multiple chronic medical issues lives at home has significant care available at home slid off the bed and was having increased back pain. No new compression fractures, rib fractures, retroperitoneal bleeding or other significant findings on CT scanning to suggest etiology for pain other than musculoskeletal. It does look like he needs to have bowel movement but I believe this is more chronic issue for him and doubt that it is contributing significantly to his overall pain. Discharge Plan Departure Patient Disposition: Home Clinical Impression: Musculoskeletal back pain Constipation Qualifiers: Constipation type: unspecified constipation type Qualified Code(s): K59.00 - Constipation, unspecified Instructions: DI for Musculoskeletal Pain Activity Restrictions/Additional Instructions: Thank you for coming in today I am sorry that you are hurting after your fall. Fortunately the CT scan that we did of your chest, abdomen and pelvis does not show any life-threatening abnormalities. There are no new spinal compression fractures, no new rib fractures and no bleeding or internal organ injury. I expect that you likely are going to be sore for a couple of more days. You can use Tylenol for immediate pain. I have given you a small prescription for Percocet. This is a narcotic and will make you sleepy and should not be mixed with Ativan. It will make your baseline constipation worse. Please make sure that you take a laxative this evening and continue with stool softeners and probably a laxative tomorrow given the significant stool that you still having your colon right now If you find that you are getting worse or develop any new symptoms, please feel free to return to the emergency department for further evaluation. Prescriptions: New oxycodone-acetaminophen 5-325 mg tablet 1 tab PO Q6H PRN (Reason: pain) Qty: 10 0RF No Action fluoxetine 10 mg Tablet 10 mg PO DAILY aspirin 81 mg Tablet,Delayed Release (Dr/Ec) 162 mg PO QPM meclizine 25 mg Tablet 25 mg PO QAM epinephrine [EpiPen 2-Lorenzo] 0.3 mg/0.3 mL Auto-Injector 0.3 ml IM PRN PRN (Reason: Anaphylaxis) multivitamin Tablet 1 tab PO DAILY carbidopa-levodopa 10-100 mg Tablet 1 tab PO TID famotidine [Pepcid AC] 10 mg Tablet 10 mg PO BID donepezil 10 mg Tablet 10 mg PO BEDTIME Referrals: Luis Daniel Varghese MD [Primary Care Provider] - Stand Alone Forms: Patient Portal/API
--- NOTE | 2024-03-06 11:33 | DI.CT.S_ITS ---
PROCEDURE: CT TRAUMA CHEST ABDOMEN PELVIS INDICATIONS: fall out of bed. increasing back pain TECHNIQUE: After the administration of intravenous contrast, 5 mm thick sections acquired from the lung apices to the symphysis. 2.5 mm thick coronal and sagittal reformats were acquired. Additional 7 mm thick coronal maximum intensity projection (MIP) reformats acquired through the lungs. Optional 10-minute delayed imaging may be performed from the kidneys to the bladder. For radiation dose reduction, the following was used: automated exposure control, adjustment of mA and/or kV according to patient size. COMPARISON: [facility], CT, CT CHEST WO CON, 05/13/2018, 10:47. FINDINGS: Image quality: Diagnostic. CHEST: Lower Neck: No enlarged lymph nodes. Thyroid: No thyroid nodules which require sonographic evaluation. Axillae: No enlarged lymph nodes. Chest Wall: No subcutaneous gas. Lungs and Pleura: No pulmonary contusions or lacerations. Previously, the lung marquez were clear. There are now subtle geographic areas of ground-glass opacities and interstitial infiltrates. There is development of mild bibasilar chronic pulmonary fibrosis. No pneumothorax or hemothorax. Mediastinum: No mediastinal hematomas. Heart size is normal. No pericardial effusion. Thoracic aorta and pulmonary arteries demonstrate normal size and enhancement. No mediastinal or hilar adenopathy. Esophagus is normal in caliber. No hiatal hernia. ABDOMEN: Liver: No lacerations. Gallbladder: Surgically absent Biliary ducts: No biliary dilation. Pancreas: Homogenous enhancement. Spleen: Homogenous enhancement without laceration or hematoma. Adrenal Glands: Symmetric enhancement. Kidneys and Ureters: Symmetric enhancement. No hydronephrosis. No solid mass. No complex renal cystic lesion which requires follow up. Stomach and Bowel: Normal colonic caliber, without significant wall thickening. Large rectal fecal impaction. Mild diverticulosis without evidence of acute diverticulitis. Peritoneum: No abnormal intraperitoneal fluid. No free air. Ventral Wall: No hernia. Abdominal Nodes: No retroperitoneal or mesenteric adenopathy by size criteria. Vessels: Aorta and inferior vena cava are normal in size. PELVIS: Pelvic Organs: Unremarkable. Bladder: Normal thickness. Pelvic Nodes: No enlarged lymph nodes. Miscellaneous: No inguinal hernias are seen. Bones: Diffuse osteopenia. Chronic compressions of L1, L2, L3, L4, and L5. Deformity of the posterior lateral left 8th, 9th, and 10th ribs is consistent with fractures, likely chronic. No clearly evident acute rib fractures are noted. Remote ORIF of the right hip. Remote left hip arthroplasty. IMPRESSION: 1. No evidence of significant sequelae of acute trauma in the chest, abdomen, and pelvis. 2. Diffuse osteopenia with chronic compressions of L1 through L5. 3. Left 8th, 9th, and 10th rib fractures are likely chronic. 4. Interval development of pulmonary findings which include chronic interstitial pulmonary fibrosis as well as, potentially, viral pneumonitis or sequelae of previous viral pneumonitis. Covid-19 pneumonia is not excluded. 5. Large rectal fecal impaction. 6. Remote cholecystectomy. Dictated by: Rodrigo Nielson M.D. on 03/06/2024 at 13:14 Approved by: Rodrigo Nielson M.D. on 03/06/2024 at 13:41
[2024-03-06 11:49] LABS: Add Manual Diff / Slide Review NO; Basophils Absolute Auto 100 /uL (0-100); Basophils Percent Auto 0.9 % (0-2); Eosinophils Absolute Auto 700 /uL (0-450); Hematocrit 37.7 % (41-53); Hemoglobin 12.5 g/dL (13.5-17.5); Lymphocytes Absolute Auto 2200 /uL (1100-4500); Mean Corpuscular HGB Conc 33.2 % (30-36); Mean Corpuscular Hemoglobin 33.5 PG (26-34); Mean Corpuscular Volume 101.1 fL (80-100); Monocytes Absolute Auto 1700 /uL (0-900); Monocytes Percent Auto 12.5 % (3-14); Neutrophils Absolute Auto 8900 /uL (1500-7000); Neutrophils Percent Auto 65.6 % (50-75); Platelet Count 292 X10^3/uL (150-400); Red Blood Cell Count 3.73 X10^6/uL (4.5-5.9); Red Cell Distribution Width 13.8 % (11.6-14.8); White Blood Cell Count 13.6 X10^3/uL (4.5-11.0)
[2024-03-06 11:55] LABS: INR 1.1 (0.9-1.3)
[2024-03-06 11:58] LABS: PTT Partial Thromboplastin Tim 26 SECONDS (25.1-36.5)
[2024-03-06] MEDS: ONDANSETRON 4 MG/2 ML INJ IV (11:59)
[2024-03-06] MEDS: fentaNYL 100 MCG/2 ML INJ 25 MCG IV (11:59)
[2024-03-06 12:00] LABS: Alanine Aminotransferase 14 IU/L (<50); Albumin 3.9 g/dL (3.5-5.0); Alkaline Phosphatase 83 U/L (38-126); Aspartate Aminotransferase 28 IU/L (17-59); BUN Creatinine Ratio 27.9 (6-22); Bilirubin Total 0.4 mg/dL (0.2-1.3); Blood Urea Nitrogen 48 mg/dL (9-20); Calcium 9.1 mg/dL (8.4-10.2); Carbon Dioxide 24 mmol/L (22-32); Chloride 108 mmol/L (98-107); Estimated Glomerular Filt Rate 38 mL/min (>60); Globulin 3.8 g/dL (1.7-4.1); Glucose 121 mg/dL (80-110); HEMOLYSIS < 15 (0-50); Lipase 186 U/L (23-300); Potassium 3.7 mmol/L (3.4-5.1); Sodium 141 mmol/L (137-145); Total Protein 7.7 g/dL (6.3-8.2)
[2024-03-06 12:01] LABS: Lactate (Lactic Acid) 2.8 mmol/L (0.7-2.1)
[2024-03-06 13:21] LABS: Reflexed Lactate in 2 Hours Y
--- NOTE | 2024-03-06 13:39 | PC.NURSE ---
spoke with Maira she reports patient is more bedbound than wheelchair bound. Fall from wheelchair (not bed) on monday03/02/24 at 0300 am, eased out of chair to ground for about 30-45 mins. Had to get lifted up with help from ground and put back in bed. EMS saw him post fall Monday. EMS returned today for severe back pain. Maira Arriola ph# [phone]
[2024-03-06 13:50] LABS: Lactate 2HR (Lactic Acid Rflx) 2.2 mmol/L (0.7-2.1)
== END 2024-03-06 14:51 | disposition home or self-care (01) ==
PROVIDERS: Emergency Provider Emergency Medicine; PCP Family Medicine
DX: M54.6 Pain in thoracic spine (principal); K59.00 Constipation, unspecified; W06.XXXA Fall from bed, initial encounter; G20.A1 Parkinson's disease without dyskinesia, without mention of fluctuations
CPT/HCPCS: 36415; 51798; 71275; 74177; 80053; 83605; 83690; 83735; 85025; 85610; 85730; 96374; 96375; 99285; J2405; J3010; Q9967

== ENCOUNTER 2024-06-28 23:36 | Emergency (ER) | payer MEDICARE, OTHER, SELFPAY ==
[2022-05-31 22:12] VITALS: BMI 33.6
[2024-06-28 23:52] VITALS: BP 143/67; PULSE 74; RESP 16; TEMP 37.1; O2SAT 98
--- NOTE | 2024-06-29 00:13 | ED.RECABL ---
HPI - Recheck/Abnormal Lab/Rx General Chief Complaint: Recheck/Abnormal Lab/Rx Stated Complaint: pulled out PICC line Time Seen by Provider: 06/29/24 00:11 Source: patient and EMS Mode of arrival: EMS History of Present Illness HPI narrative: 89-year-old male sent from nursing facility as his PICC line came loose and fell out earlier today. Patient states he noticed it was loose this morning he was receiving IV daptomycin for it. Patient facility was contacted they are comfortable with us placing an IV as we have no PICC line services available in house over the weekend and we will have their physician order PICC line Monday. Patient states he has no other concerns or complaints other than being poked for the IV. Related Data Home Medications Medication Instructions Recorded Confirmed aspirin 81 mg tablet,delayed 162 mg PO QPM 05/10/18 08/17/22 release epinephrine 0.3 mg/0.3 mL 0.3 ml IM PRN PRN Anaphylaxis 05/10/18 08/17/22 injection, auto-injector (EpiPen 2-Lorenzo) fluoxetine 10 mg tablet 10 mg PO DAILY 05/10/18 08/17/22 meclizine 25 mg tablet 25 mg PO QAM 05/10/18 08/17/22 multivitamin 1 tab PO DAILY 05/10/18 08/17/22 carbidopa 10 mg-levodopa 100 mg 1 tab PO TID Parkinsons 10/26/18 08/17/22 tablet donepezil 10 mg tablet 10 mg PO BEDTIME 03/20/19 08/17/22 famotidine 10 mg tablet (Pepcid AC) 10 mg PO BID 03/20/19 08/17/22 Previous Rx's Medication Instructions Recorded oxycodone-acetaminophen 5 mg-325 1 tab PO Q6H PRN pain #10 tabs 03/06/24 mg tablet Allergies Allergy/AdvReac Type Severity Reaction Status Date / Time bee venom protein (honey bee) Allergy Severe Anaphylaxis Verified 08/17/22 11:54 avocado AdvReac Intermediate Nausea, Verified 08/17/22 11:54 vomiting gabapentin AdvReac Intermediate Hallucinati Verified 08/17/22 11:54 ng hydromorphone [From Dilaudid] AdvReac Intermediate Vomiting Verified 08/17/22 11:54 Review of Systems Review of Systems ROS Unobtainable: All systems reviewed & are unremarkable except as noted in HPI and below Patient History Medical History (Updated 06/29/24 @ 00:17 by Arminda Ballesteros DO) Sigmoid diverticulitis Anemia Gastroesophageal reflux Compression fracture of L1 vertebra Cholelithiasis Pubic ramus fracture Colovesical fistula Fall Right femoral fracture Hypertension Surgical History Hx of colectomy (12/12/18) Status post left shoulder hemiarthroplasty (11/01/18) History of left hip replacement Family History Father Lymphoma Mother Cancer Dementia Brother Cancer Smoker Social History marital status: household members: spouse occupational status: previously employed Smoking Status: Never smoker alcohol intake: former substance use type: does not use Smoking Status: Never smoker alcohol intake frequency: 0-2 drinks per day Exam Narrative Exam Narrative: GENERAL: Alert and oriented x three, elderly male in mild distress while receiving his IV. HEENT: Head normocephalic, atraumatic, EOMI, pupils reactive, face symmetric, moist mucous membranes NECK: Supple, full range of motion CARDIOVASCULAR: Regular rate and rhythm without murmurs, rubs or gallops. RESPIRATORY: Breath sounds equal bilaterally, no wheezes rales or rhonchi. ABDOMEN: Soft, nontender. Normoactive bowel sounds all 4 quadrants. No guarding or rebound, rigidity, no mass EXTREMITIES: Neurovascularly intact NEUROLOGICAL: Cranial nerves II through XII grossly intact. Moving all extremities SKIN: Warm, dry, no petechiae, no rashes or lesions. Initial Vital Signs Initial Vital Signs: Vital Signs Temperature 98.8 F 06/28/24 23:52 Pulse Rate 74 06/28/24 23:52 Respiratory Rate 16 06/28/24 23:52 Blood Pressure 143/67 H 06/28/24 23:52 Pulse Oximetry 98 06/28/24 23:52 Oxygen Delivery Method Room Air 06/28/24 23:52 Course Vital Signs Vital signs: Vital Signs - 8 hr 06/28/24 23:52 Temperature 98.8 F Pulse Rate 74 Respiratory Rate 16 Blood Pressure 143/67 H Pulse Oximetry 98 Oxygen Delivery Method Room Air MDM - Recheck/Abnormal Lab/Rx MDM Narrative Medical decision making narrative: 89-year-old male needed IV access for IV antibiotics is receiving daptomycin at his nursing facility. Discussed with the facility they are agreeable for him to come back with a IV placed by nursing and we will have their physician order PICC line as we do not have services available in house. Discharge Plan Departure Patient Disposition: Home Clinical Impression: Need for intravenous access Activity Restrictions/Additional Instructions: You have had an IV placed for your daptomycin over the weekend we do not have PICC line services available in-house on the weekend they are present during some week days please discuss with your physician if this can be ordered as an outpatient or please verify that we have services available. If patient's IV falls out or is not working please return so you can receive your antibiotics. Please return for any new or concerning changes. Prescriptions: No Action fluoxetine 10 mg Tablet 10 mg PO DAILY aspirin 81 mg Tablet,Delayed Release (Dr/Ec) 162 mg PO QPM meclizine 25 mg Tablet 25 mg PO QAM epinephrine [EpiPen 2-Lorenzo] 0.3 mg/0.3 mL Auto-Injector 0.3 ml IM PRN PRN (Reason: Anaphylaxis) multivitamin Tablet 1 tab PO DAILY carbidopa-levodopa 10-100 mg Tablet 1 tab PO TID famotidine [Pepcid AC] 10 mg Tablet 10 mg PO BID donepezil 10 mg Tablet 10 mg PO BEDTIME oxycodone-acetaminophen 5-325 mg tablet 1 tab PO Q6H PRN (Reason: pain) Qty: 10 0RF Referrals: Luis Daniel Varghese MD [Primary Care Provider] - Stand Alone Forms: Patient Portal/API/Survey
--- NOTE | 2024-06-29 00:38 | PC.NURSE ---
Called [facility] and talked to Ceci RN. Discussed potentially placing a Peripheral IV and to get an order on Monday to Have a picc placed out patient. RN agreable with plan.
== END 2024-06-29 01:47 | disposition home or self-care (01) ==
PROVIDERS: Emergency Provider Emergency Medicine; PCP Family Medicine
DX: T82.594A Other mechanical complication of infusion catheter, initial encounter (principal)
CPT/HCPCS: 99281

== ENCOUNTER 2024-07-03 09:57 | Outpatient (CLI) | payer MEDICARE, OTHER, SELFPAY ==
[2022-05-31 22:12] VITALS: BMI 33.6
--- NOTE | 2024-07-03 10:05 | DI.RAD.S_ITS ---
PROCEDURE: XR FEMUR LT MIN 2V INDICATIONS: LEFT HIP PAIN TECHNIQUE: 2 views of the femur were acquired. COMPARISON: None. FINDINGS: Bones: Lateral plate, screws and cerclage wires transfix a spiral fracture of the mid femoral diaphysis. Anatomic alignment. Left hip hemiarthroplasty is anatomically aligned without loosening or infection. Joints: Moderate patellofemoral tibiofemoral degenerative change noted Soft tissues: Diffuse soft tissue swelling. IMPRESSION: ORIF spiral fracture mid femoral diaphysis. Anatomic alignment Dictated by: Willy Grewal M.D. on 07/04/2024 at 11:28 Approved by: Willy Grewal M.D. on 07/04/2024 at 11:30
== END 2024-07-03 11:35 | disposition home or self-care (01) ==
PROVIDERS: PCP Family Medicine; Referring Provider Registered Nurse; Visit Provider Registered Nurse
DX: S72.332D Displaced oblique fracture of shaft of left femur, subsequent encounter for closed fracture with routine healing (principal); W18.11XD Fall from or off toilet without subsequent striking against object, subsequent encounter; N39.0 Urinary tract infection, site not specified; B96.89 Other specified bacterial agents as the cause of diseases classified elsewhere
CPT/HCPCS: 73552

== ENCOUNTER → 2024-07-29 15:22 | Outpatient (CLI) | payer MEDICARE, OTHER, SELFPAY ==
[2022-05-31 22:12] VITALS: BMI 33.6
--- NOTE | 2024-07-29 15:27 | DI.RAD.S_ITS ---
PROCEDURE: XR FEMUR LT MIN 2V INDICATIONS: L FEMUR FX F/U TECHNIQUE: 4 views of the femur were acquired. COMPARISON: [facility], CR, XR FEMUR LT MIN 2V, 07/03/2024, 10:19. FINDINGS: Bones: Hardware is stable in appearance status post open reduction internal fixation of the femur. Incomplete healing of the fracture fragments of the mid diaphyseal femur are noted. Stable appearing hardware component status post total arthroplasty noted. No evidence of hardware complication. No suspicious bony lesions. Soft tissues: No suspicious soft tissue calcifications or masses. IMPRESSION: No evidence of hardware complication or acute osseous abnormalities status post left femoral ORIF. Dictated by: Jacky José M.D. on 07/29/2024 at 18:26 Approved by: Jacky José M.D. on 07/29/2024 at 18:28
== END ==
PROVIDERS: PCP Family Medicine; Referring Provider Physician Assistant; Visit Provider Physician Assistant
DX: S72.332D Displaced oblique fracture of shaft of left femur, subsequent encounter for closed fracture with routine healing (principal); Z96.7 Presence of other bone and tendon implants; X58.XXXA Exposure to other specified factors, initial encounter
CPT/HCPCS: 73552